=== PATIENT | male | born 1965 | race Caucasian/White ===

== ENCOUNTER → 2018-03-05 15:15 | Outpatient (CLI) | payer MEDICAID, SELFPAY ==
[2018-03-05 16:14] LABS: Absolute Lymphocyte Count 1.38 X10^3/ul (0.83-4.51); Absolute Neutrophil Count 6.6 X10^3/uL (2.0-7.7); Basophil# 0.04 X10^3/uL; Basophil% 0.4 % (0-1); Eosinophil# 0.24 X10^3/uL; Eosinophils% 2.6 % (0-5); Hematocrit 20.6 % (40-54); Lymphocyte # 1.38 X10^3/ul (4.0); Lymphocyte % 15.2 % (19-41); Mean Corp Hgb Conc 27.2 g/gl (32-36); Mean Corpuscular Hgb 20.8 pg (27.0-32.0); Mean Corpuscular Volume 76.6 fL (80-94); Mean Platelet Vol. 8.9 fl (6.2-12.0); Monocyte# 0.82 X10^3/uL; Neutrophil # 6.59 X10^3/uL (2.7-7.7); Neutrophil % 72.5 % (47-70); Platelet Count 227 K/mm3 (150-450); RBC Distribution Width CV 19.6 % (11.6-14.6); RBC Distribution Width SD 54.4 fl (35.1-43.9); Red Blood Count 2.69 M/mm3 (4.6-6.2); White Blood Count 9.1 K/mm3 (4.4-11.0)
[2018-03-05 16:23] LABS: Differential Indicated SCAN CRITERIA MET; POSITIVE COUNT YES; POSITIVE DIFFERENTIAL NO; POSITIVE MORPHOLOGY NO
[2018-03-05 16:42] LABS: Anion Gap 13 (5-15); BUN 14 mg/dL (7-18); BUN/Creat Ratio 14.9 RATIO (10-20); Chloride 94 mmol/L (98-107); Creatinine, Serum 0.94 mg/dL (0.70-1.30); EST Glomerular Filtration Rate 90 mL/min (>60); Est Glom Filt Rate - Afr Amer 109 mL/min (>60); Glucose 112 mg/dL (74-106); Potassium 4.3 mmol/L (3.5-5.1); Sodium Level 127 mmol/L (136-145)
[2018-03-05 17:05] LABS: Hemoglobin 5.6 g/dl (13.0-16.5)
[2018-03-05 17:06] LABS: Anisocytosis 1+; Hypochromasia 1+; Microcytosis 1+; Platelet Estimate ADEQUATE (ADEQ)
== END ==
PROVIDERS: Visit Provider Nurse Practitioner Family
DX: I25.810 Atherosclerosis of coronary artery bypass graft(s) without angina pectoris (principal); R06.09 Other forms of dyspnea
CPT/HCPCS: 36415; 80048; 83880; 85025

== ENCOUNTER → 2019-03-17 | Outpatient (CLI) | payer MEDICAID, SELFPAY ==
[2018-11-26 14:20] VITALS: BMI 29.0
[2019-03-17 17:21] LABS: Absolute Lymphocyte Count 2.39 X10^3/ul (0.83-4.51); Absolute Neutrophil Count 7.8 X10^3/uL (2.0-7.7); Basophil# 0.02 X10^3/uL; Basophil% 0.2 % (0-1); Eosinophil# 0.28 X10^3/uL; Eosinophils% 2.3 % (0-5); Hematocrit 42.4 % (40-54); Hemoglobin 13.8 g/dl (13.0-16.5); Lymphocyte # 2.39 X10^3/ul (4.0); Lymphocyte % 19.9 % (19-41); Mean Corp Hgb Conc 32.5 g/gl (32-36); Mean Corpuscular Volume 92.2 fL (80-94); Mean Platelet Vol. 10.9 fl (6.2-12.0); Monocyte# 1.46 X10^3/uL; Monocyte% 12.2 % (0-10); Neutrophil # 7.83 X10^3/uL (2.7-7.7); Neutrophil % 65.2 % (47-70); Platelet Count 253 K/mm3 (150-450); RBC Distribution Width CV 16.1 % (11.6-14.6); RBC Distribution Width SD 52.9 fl (35.1-43.9)
[2019-03-17 17:24] LABS: POSITIVE COUNT NO; POSITIVE DIFFERENTIAL NO; POSITIVE MORPHOLOGY NO
== END | disposition home or self-care (01) ==
LOC: LAB 15:52
PROVIDERS: Referring Provider Nurse Practitioner Family; Visit Provider Nurse Practitioner Family
DX: I25.810 Atherosclerosis of coronary artery bypass graft(s) without angina pectoris (principal); I48.0 Paroxysmal atrial fibrillation; R79.89 Other specified abnormal findings of blood chemistry
CPT/HCPCS: 36415; 85025

== ENCOUNTER 2019-03-28 11:57 | Inpatient (IN) | payer MEDICAID, SELFPAY ==
[2018-11-26 14:20] VITALS: BMI 29.0
[2019-03-28] VITALS (12 sets, daily range): BP systolic 85–100; BP diastolic 46–63; PULSE 65–89; RESP 14–21; TEMP 36.2–37.2; O2SAT 96–99; BMI 25.1; BMI 24.3
--- NOTE | 2019-03-28 12:02 | NURSING ---
NO OLD EKGS
[2019-03-28 12:10] LABS: Bedside Glucose 198 mg/dL (70-110)
--- NOTE | 2019-03-28 12:34 | CT_ITS ---
STUDY: CT BRAIN WITHOUT CONTRAST REASON FOR EXAM: Male, 53 years old. Right-sided weakness. RADIATION DOSAGE (If Supplied By Facility): CTDIvol = ( 44.99 ) mGy, DLP = ( 829.85 ) mGycm TECHNIQUE: Transaxial CT imaging of the brain was performed without administration of intravenous contrast material. Individualized dose optimization techniques were used for this CT. COMPARISON: No relevant priors. FINDINGS: Normal soft tissue structures. Normal calvarium. Normal size ventricles and extra-axial spaces for the patient's age. Normal white matter tracts of the cerebral hemispheres. Normal basal ganglia and thalami. Normal brainstem. Normal cerebellum. There is no intracranial hemorrhage. There are no findings of an acute ischemic infarction. Atherosclerotic calcification of the cavernous portions of the internal carotid arteries bilaterally. Mild degree of mucosal thickening of the ethmoid sinuses. CT/Brain/Head without Contrast IMPRESSION: Normal unenhanced CT scan of the brain. Electronically Signed: Harry Voss, at 13:23 EDT , Service support ,
--- NOTE | 2019-03-28 12:34 | EKG12_ITS ---
Test Reason : NEURO Blood Pressure : / mmHG Vent. Rate : 068 BPM Atrial Rate : 267 BPM P-R Int : 000 ms QRS Dur : 088 ms QT Int : 490 ms P-R-T Axes : 091 062 111 degrees QTc Int : 521 ms Atrial flutter with variable A-V block Inferior infarct , age undetermined Prolonged QT T-Wave Abnormality Consider Myocardial Ischemia (Anterior-Lateral) Abnormal ECG Confirmed by COLT LOMELI, TAMMY ([id number]), magazine editor CANDICE ZAZUETA ([id number]) on 03/31/2019 9:04:33 AM Referred By: EARLINE Confirmed By:TAMMY GREGORY MD
[2019-03-28] MEDS: 0.9% Normal Saline 1,000 ML 100 ML IV (12:42)
[2019-03-28 12:49] LABS: Absolute Lymphocyte Count 2.38 X10^3/ul (0.83-4.51); Absolute Neutrophil Count 5.6 X10^3/uL (2.0-7.7); Basophil# 0.04 X10^3/uL; Basophil% 0.4 % (0-1); Eosinophil# 0.28 X10^3/uL; Eosinophils% 3.1 % (0-5); Hemoglobin 13.8 g/dl (13.0-16.5); Lymphocyte # 2.38 X10^3/ul (4.0); Lymphocyte % 26.5 % (19-41); Mean Corp Hgb Conc 32.9 g/gl (32-36); Mean Corpuscular Hgb 30.7 pg (27.0-32.0); Mean Corpuscular Volume 93.5 fL (80-94); Mean Platelet Vol. 9.7 fl (6.2-12.0); Monocyte# 0.68 X10^3/uL; Monocyte% 7.6 % (0-10); Neutrophil # 5.58 X10^3/uL (2.7-7.7); Neutrophil % 62.2 % (47-70); Platelet Count 360 K/mm3 (150-450); RBC Distribution Width SD 55.9 fl (35.1-43.9); Red Blood Count 4.49 M/mm3 (4.6-6.2)
[2019-03-28 12:50] LABS: POSITIVE COUNT NO; POSITIVE DIFFERENTIAL NO; POSITIVE MORPHOLOGY NO
[2019-03-28 12:51] LABS: International Normalized Ratio 1.1; Prothrombin Time (Protime)PT. 14.4 SECONDS (11.7-14.9)
[2019-03-28 12:52] LABS: Partial Thromboplast Time 34.3 Seconds (24.1-36.2)
--- NOTE | 2019-03-28 12:55 | PCA ---
NO OLD EKG
[2019-03-28 13:01] LABS: Anion Gap 11 (5-15); BUN 22 mg/dL (7-18); BUN/Creat Ratio 11.8 RATIO (10-20); Calcium,Total 10.1 mg/dL (8.5-10.1); Chloride 95 mmol/L (98-107); Creatinine, Serum 1.86 mg/dL (0.70-1.30); EST Glomerular Filtration Rate 41 mL/min (>60); Est Glom Filt Rate - Afr Amer 49 mL/min (>60); Estimated Creatinine Clearance 47.42 ml/min; Glucose 176 mg/dL (74-106); Potassium 3.2 mmol/L (3.5-5.1); Sodium Level 137 mmol/L (136-145)
--- NOTE | 2019-03-28 13:02 | RAD_ITS ---
STUDY: X-RAY CHEST REASON FOR EXAM: Male, 53 years old. Palpitations. TECHNIQUE: Single AP portable view of the chest. COMPARISON: Comparison is made with prior study dated December 04, 2015. FINDINGS: EKG electrodes are seen Mild degree of vascular congestion. Increased markings at the lung bases slightly worse on the left side suggestive of bibasilar atelectasis. Follow-up is recommended. There is no demonstrated pleural abnormality. Sternal cerclage wires and vascular clips are present from a prior sternotomy and coronary artery bypass graft procedure (CABG). A loop recorder device is seen in the medial left lower hemithorax. Normal mediastinum and ranjit. Normal visualized pulmonary arteries. Normal visualized aortic arch and descending thoracic aorta. Normal visualized thoracic spine. Normal visualized ribs, clavicles, and shoulders. There is no demonstrated abnormality of the visualized soft tissue structures of the upper abdomen. RAD/Chest 1 View IMPRESSION: Basilar congestion with increased markings at the lung bases worse on the left side suggestive of superimposed bibasilar atelectasis. Electronically Signed: Harry Voss, at 13:46 EDT , Service support ,
--- NOTE | 2019-03-28 14:00 | ED.RN ---
verbal order received to discontinue NIHs.
--- NOTE | 2019-03-28 14:13 | ED.VISSUMM ---
- ER Visit Summary Date of Service: 03/28/19 Chief Complaint: [Speech difficulty and right arm weakness presents the emergency department with] History of Present Illness: The patient is a 53 M [speech difficulty that was noted this morning around 8 AM by patient's ex-. Patient also states that he has been having issues with his right hand for a couple of days where he cannot use it properly and has been numb. He denies any headache or falls or head injuries. He denies any recent illness. Patient has history of diabetes, hypertension, coronary artery disease, a flutter, neuropathy. Patient states that he used to be on Eliquis but was taken off a few years ago due to rectal bleeding issues.] Physical Examination: [HEENT-PERRLA, EOMI. Cranial nerves II through XII grossly intact. TMs clear. Mucous membranes moist. No adenopathy. Cardiovascular-regular rate and rhythm without murmur or ectopy Lungs-clear to auscultation, chest wall stable without crepitus or subcu emphysema Abdomen-normoactive bowel sounds, soft, nontender, no rebound or rigidity, no peritoneal signs. Neuro exam-patient has weakness to the right hand compared to the left side. He has decreased sensation to the right hand compared to the left side. NIH stroke scale was a 2 because of this. There is no facial droop at this time or difficulty with speech. No visual changes. Extremities-intact ?4, normal range of motion, normal pulses, atraumatic] Test Results: [EKG obtained showed atrial flutter with a rate of 60 bpm with some nonspecific ST changes. CBC with additional cannot 9.0, hemoglobin 14, hematocrit 42, placed 360. Chemistries unremarkable. BUN is 22 creatinine 1.86. Troponin is less than 0.015. CT scan of the brain without contrast was unremarkable. Chest x-ray showed bibasilar congestion.] Emergency Department Course and Treatment: [Patient will be admitted for stroke work-up. Patient is not a thrombolytic candidate given symptom of onset greater than 3 hours and actually improving symptoms.] Treatment Plan: [Admit for further stroke evaluation.] Disposition: [Admit] Impression: [CVA] This note was generated with [employer] dictation software. It may contain incorrect words, spelling, and punctuation that were not noted in review of the chart prior to signing ED Disposition - Plan for ED Patient: Referrals: Care Physician,No Primary [Primary Care Provider] -
--- NOTE | 2019-03-28 14:25 | NURSING ---
120 ASHELFAH STROKELIKE SYMPTOMS, ACUTE KIDNEY INJURY, HYPOKALEMIA
--- NOTE | 2019-03-28 14:38 | PCM.HP.STD ---
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 [place] (3) Paroxysmal atrial fibrillation Status: Chronic (4) Diabetes mellitus Status: Chronic (5) Hypertension Status: Chronic Qualifiers: (6) Hyperlipidemia Status: Chronic Qualifiers: (7) Nicotine abuse Status: Chronic History of Present Illness Date of Admission: 03/28/19 Chief Complaint: Change in speech, right arm weakness. The patient is a 53 year old M with past medical history as mentioned above presented to the emergency department because of difficulty in speech as well as right upper extremity weakness. The patient is a very poor informant and he does not remember most of the symptoms that he came for. Reportedly and according to the patient's ex-, his ex- noted that he had speech difficulty this morning around 8 AM and she brought him to the emergency department. The patient mentioned that he has been having issues with his right hand over the last couple of days which has been numb and weak. He denied chest pain or shortness of breath. His right eye is blind and he has been having issues with blurred vision in the past. He has history of paroxysmal atrial fibrillation/flutter, has been on sotalol for rate control and he was taken off anticoagulant around 2 years ago because of GI bleed. He has history of CAD status post CABG and stents and he has been on beta-blockers, WENDY inhibitors and nitrates. He has a history of type 2 diabetes mellitus, has been on metformin and it is not clear if the patient takes care of his diabetes or not. The patient has a history of recurrent syncope and presyncope, had patient activated loop recorder that was placed on November, and that was interrogated 1 week later and showed no evidence of patient activated symptoms, revealed one episode of A. fib and there was no evidence of other cardiac arrhythmias. He had had a remote interrogation of the loop recorder done on April, and again revealed no patient activity symptoms and no cardiac arrhythmias. In the emergency department, his blood pressure was borderline which seem to be chronic, other vital signs were stable. Into the ER physician, his NIH stroke scale was 2. His routine blood work was remarkable for potassium of 3.2, BUN of 22 and creatinine of 1.86, otherwise normal. EKG revealed atrial flutter, prolonged QTC, no evidence of acute ischemic changes. Troponin was negative. Chest x-ray showed probable right lower lobe atelectasis, no acute findings. CT scan brain showed no acute infarction or hemorrhage. He is being admitted for slurred speech/right upper extremity paresthesia and weakness, probable TIA versus acute stroke and acute kidney injury with hypokalemia. 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 [place] Paroxysmal atrial fibrillation (Chronic) Diabetes mellitus (Chronic) Hypertension (Chronic) Hyperlipidemia (Chronic) Nicotine abuse (Chronic) Medical History: Medical History (Last Updated 03/28/19 @ 14:37 by Fadia Starkey MD) Typical atrial flutter (Chronic) I48.3 Other specified cardiac device in situ (Chronic) Z95.818 Paroxysmal atrial fibrillation (Chronic) I48.0 Diabetes mellitus (Chronic) E11.9 Hypertension (Chronic) I10 Hyperlipidemia (Chronic) E78.5 Allergies seasonal Allergy (Uncoded 03/28/19 12:03) SOB Home Medications: Ambulatory Orders Medication Instructions Recorded Gabapentin [Neurontin] 1,200 mg PO TIDCM 12/07/15 Loratadine [Claritin] 10 mg PO DAILY 12/07/15 Metformin HCl [Glucophage] 1,000 mg PO BIDCM 12/07/15 Omeprazole [Prilosec] 20 mg PO DAILY 12/07/15 duloxetine 60 mg capsule,delayed 60 mg PO DAILY 01/13/18 release lisinopril 10 mg tablet 10 mg PO DAILY 09/27/18 ferrous sulfate 325 mg (65 mg 325 mg PO DAILY tab 11/26/18 iron) tablet Atorvastatin Calcium [Lipitor] 20 mg PO QHS 03/28/19 Cholecalciferol (Vitamin D3) 5,000 unit PO DAILY 03/28/19 [Vitamin D3] Ertugliflozin Pidolate [Steglatro] 5 mg PO DAILY 03/28/19 Ezetimibe [Zetia] 10 mg PO DAILY 03/28/19 Furosemide [Lasix] 40 mg PO BID 03/28/19 Isosorbide Mononitrate [Imdur] 120 mg PO DAILY 03/28/19 Pregabalin [Lyrica] 75 mg PO TID 03/28/19 Sotalol HCl [Sotalol] 120 mg PO DAILY 03/28/19 Vitamin B Complex [B Complex] 1 tab PO DAILY 03/28/19 traZODone [Desyrel] 50 mg PO QHS 03/28/19 Surgical History: Surgical History (Last Updated 03/05/18 @ 14:36 by Akil Ramos) Presence of coronary angioplasty implant and graft (Chronic) Z95.04 March 2005 IVUS of LAD, May 2005 PTCA & ALBAN X 3 to 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 [place] History of open reduction and internal fixation (ORIF) procedure Z98.890 Left lower extremity History of surgery on arm Z98.890 Right arm d/t trauma Hx of CABG Z95.1 CABG X 3 vessels, CARTER to LAD, SVG to OM1, SVG to OM3 11/03 Surgical History: coronary bypass surgery Psychiatric History: Depression Lives: With Family Smoking Status: Current every day smoker Tobacco Use: Cigarettes, Pipe Alcohol: None Drugs: None - *Family History Maternal Family History: Family History (Last Updated 03/05/18 @ 14:37 by Akil Ramos) Father CAD (coronary artery disease) COPD (chronic obstructive pulmonary disease) CHF (congestive heart failure) Mother COPD (chronic obstructive pulmonary disease) History Items: No pertinent history Paternal Family History: Family History (Last Updated 03/05/18 @ 14:37 by Akil Ramos) Father CAD (coronary artery disease) COPD (chronic obstructive pulmonary disease) CHF (congestive heart failure) Mother COPD (chronic obstructive pulmonary disease) History Items: No pertinent history Review of Systems Constitutional: Reports: Weakness. Denies: Anorexia, Chills, Fever Eyes: Reports: Blurred vision. Denies: Double vision, Drainage, Redness HEENT: Denies: Difficulty Hearing, Ear Pain, Eye Pain, Nasal Congestion, Sore Throat Cardiovascular: Reports: Light Headedness. Denies: Chest Pain, Chest Pressure, Heaviness, Palpitations, Syncope Respiratory: Denies: Cough, Pleuritic Pain, Shortness of Breath, Sputum production, Wheezing Gastrointestinal: Denies: Abdominal Pain, Constipation, Diarrhea, Nausea, Vomiting Genitourinary: Denies: Dysuria, Frequency, Hematuria Musculoskeletal: Reports: Back Pain. Denies: Arm Pain, Foot Pain Skin: Denies: Dryness, Rash Neurological: Reports: Change in Speech, Slurred speech, Focal weakness, Numbness, Tingling. Denies: Balance problems, Confusion Psychiatric: Reports: Depression. Denies: Anxiety Endocrine: Denies: Change in Body Habitus, Polydipsia VTE Information - Inpt Only VTE Present on Admission: No VTE Mechan Device Prophylaxis: None VTE Pharm Prophylaxis ordered?: Yes - Physical Exam General: Alert, Oriented x3, Cooperative, No apparent distress HEENT: Atraumatic, PERRLA, EOMI, Normocephalic Oral: Moist Mucosa, No Gingival or Mucosal Lesions/ Ulcerations Neck: Supple, No JVD, Negative Carotid Bruits, Trachea Midline, Thyroid Normal Size and Texture Lungs: Clear to auscultation, No rhonchi, No wheeze, No rales, Diminished Cardiovascular: Normal S1, Normal S2, No murmurs, PMI Normal, Irregular Rate Abdomen: Bowel Sounds Present, Soft, Non Tender, Non-Distended, No Hepato-splenomegaly Extremities: No clubbing, No cyanosis, No edema Skin: No rashes, No breakdown Lymphatic: No Cervical, Supraclavicular, or Inguinal Adenopathy Neurological: Cranial nerves II-XII grossly intact, - - Minimal weakness on the right upper extremity, power is 4 x 5. All other limbs power is 5 x 5. Psych/Mental Status: Normal Affect, Appropriate, Alert and oriented to time, place, person, mood and affect Vital Signs Temp Pulse Resp BP Pulse Ox 97.8 F 65 21 H 91/54 L 99 03/28/19 11:58 03/28/19 13:34 03/28/19 13:34 03/28/19 13:34 03/28/19 13:34 Oxygen Flow Rate (L/min) 4 Oxygen Delivery Method Nasal Cannula Weight: 175 lb 0.752 oz Body Mass Index (BMI) 25.1 Finger Stick Blood Glucose 198 Laboratory Tests Past 24 Hrs 03/28/19 03/28/19 03/28/19 12:05 12:05 12:05 WBC 9.0 RBC 4.49 L Hgb 13.8 Hct 42.0 MCV 93.5 MCH 30.7 MCHC 32.9 RDW 17.0 H RDW Differential 55.9 H Plt Count 360 MPV 9.7 Immature Gran % (Auto) 0.200 Neut % (Auto) 62.2 Lymph % (Auto) 26.5 Guthrie % (Auto) 7.6 Eos % (Auto) 3.1 Baso % (Auto) 0.4 Absolute Neuts (auto) 5.6 Absolute Lymphs (auto) 2.38 Total Counted Not Reportable PT 14.4 INR 1.1 APTT 34.3 Sodium 137 Potassium 3.2 L Chloride 95 L Carbon Dioxide 31.0 Anion Gap 11 BUN 22 H Creatinine 1.86 H Estim Creat Clear Calc 47.42 Est GFR (MDRD) Af Amer 49 L Est GFR (MDRD) Non-Af 41 L BUN/Creatinine Ratio 11.8 Glucose 176 H Calcium 10.1 Troponin I < 0.015 POC Glucose 03/28/19 12:03 POC Glucose 198 H Clinical Impression(s) from Imaging Studies Brain CT 03/28/19 12:34 IMPRESSION: Normal unenhanced CT scan of the brain. Electronically Signed: Harry Voss, at 13:23 EDT , Service support , Chest X-Ray 03/28/19 13:02 IMPRESSION: Basilar congestion with increased markings at the lung bases worse on the left side suggestive of superimposed bibasilar atelectasis. Electronically Signed: Harry Voss, at 13:46 EDT , Service support , Assessment/Plan This is a 53 years old male patient presented to the emergency room because of slurred speech, right hand numbness and weakness and he is being admitted for acute stroke versus TIA and also found to have acute kidney injury and hypokalemia. #1 slurred speech/right upper extremity paresthesia and weakness/probable TIA versus acute stroke: NIH stroke scale was 2 with a right, onset of symptoms is unclear, patient is not a candidate for TPA. CT scan brain showed no acute findings. At this time, speech change has improved, still have a right upper hand and arm weakness. EKG revealed atrial flutter, rate is controlled, no acute ischemic changes. Blood pressure is borderline which seem to be chronic. Plan: Admit to PCU, cardiac monitoring, complete bedrest, NIH stroke scale, MRI brain, 2D echocardiogram, bilateral carotid Doppler, neurology consult, start baby aspirin and full dose statins, IV fluids, Tylenol as needed, IV antiemetics, fasting lipid profile, PT OT evaluation and treatment, speech therapy evaluation and treatment. #2 acute kidney injury/hypokalemia: It is likely because of side effects of Lasix in addition to metformin as well as poor oral intake. Baseline kidney function is normal. Plan: IV fluids with potassium replacement, hold Lasix and metformin, input output chart, repeat BMP tomorrow morning. #3 CAD status post CABG and stents: EKG reviewed, no acute ischemic changes, troponin is negative. Plan to start aspirin, continue statins, continue nitrates and Hodges, hold lisinopril. #4 type 2 diabetes mellitus: ADA diet, Accu-Cheks, insulin sliding scale, hold metformin, hemoglobin A1c. #5 history of recurrent syncopes/presyncope/dizziness: Status post insertion of patient activated loop recorder, no evidence of significant cardiac arrhythmias identified on interrogation x2. EKG read as above. At this time, blood pressure is borderline, heart rate stable. #6 hypertension: Blood pressure is borderline, plan to hold lisinopril, continue nitrates and sotalol. #7 paroxysmal atrial fibrillation/flutter: Rate is controlled, continue sotalol for rhythm control. Patient was on anticoagulation around 2 days ago, was discontinued because of GI bleed and anemia. The patient found to have acute stroke, he may need to go back on anti-Coblation. #8 history of GI bleed: Patient reported occasional small amount of bleeding, hemoglobin and hematocrit are stable. Pro time, INR and platelet count are normal. Plan to repeat CBC tomorrow morning. #9 hyperlipidemia: Continue statins, fasting lipid profile. #10 DVT prophylaxis: Subcu heparin. This note was generated with [employer] dictation software. It may contain incorrect words, spelling, and punctuation that were not noted in checking the note before signing. Code Visit Inpatient E&M: 65365 Init Hosp L3
--- NOTE | 2019-03-28 15:23 | CDU_ITS ---
Reason For Study: TIA Rt. Velocities/BP Lt. Velocities/BP Prox CCA 124.7/22.5 cm/sec. Prox CCA 113.3/7.7 cm/sec. Mid CCA 88.2/20.6 cm/sec. Mid CCA 86.3/6.5 cm/sec. Dist CCA 81.4/16.3 cm/sec. Dist CCA 58.1/6.5 cm/sec. Prox ICA 94.9/20 cm/sec. Prox ICA 386.9/102.5 cm/sec. Mid ICA 106.5/26.1 cm/sec. Mid ICA 112/24.3 cm/sec. Dist ICA 67.4/25.6 cm/sec. Dist ICA 57/9.7 cm/sec. Rt. ICA/CCA = 1.2. Lt. ICA/CCA = 4.5. Prox ECA 288.6 cm/sec. Prox ECA 202.8 cm/sec. Rt. Vert. 59.7/14.6 cm/sec. Lt. Vert. 55.1/6.9 cm/sec. Right Extracranial There is heterogeneous, smooth atherosclerotic plaque noted in the right common carotid artery. There is heterogeneous, irregular atherosclerotic plaque noted in the right internal carotid artery. There is heterogeneous, irregular atherosclerotic plaque noted in the right external carotid artery. Antegrade flow is noted in the right vertebral artery. Left Extracranial There is heterogeneous, smooth atherosclerotic plaque noted in the left common carotid artery. There is heterogeneous, irregular atherosclerotic plaque noted in the left internal carotid artery. There is heterogeneous, irregular atherosclerotic plaque noted in the left external carotid artery. Antegrade flow is noted in the left vertebral artery. Procedure Carotid Duplex 46715. Exam performed portable in patient room. Interpretation Summary Irregular calcific plague at the distal right common carotid and proximal internal and external carotids. <50% stenosis right internal carotid. Possible shallow ulcer. >50% stenosis right external carotid Irregular calcific plague distal left common carotid, and proximal internal and external carotids. >70% stenosis left internal carotid >50% stenosis left external carotid Patent and antegrade vertebrals bilaterally Ordering Physician: Fadia Starkey Performed By: Lea Goldstein RVT
--- NOTE | 2019-03-28 15:23 | ECHOCS_ITS ---
Reason For Study: TIA/CVA Procedure This was a 2D Doppler, Color Flow transthoracic echocardiogram. The study was technically difficult. Contrast injection was performed. Exam performed portable in patient room. Left Ventricle Normal LV size. Left ventricular systolic function is normal. The estimated ejection fraction is 55 %. There is evidence of diastolic dysfunction. No regional wall motion abnormalities noted. Right Ventricle Normal RV size. Normal systolic function. Atria The left atrium is moderately enlarged. The right atrium is mildly enlarged. No doppler evidence for ASD. Bubble contrast study negative for right to left interatrial shunt. Mitral Valve There is mild mitral annular calcification. Mild diffuse mitral valve thickening. Mild (1+) mitral valve insufficiency. Tricuspid Valve Normal tricuspid valve. Mild to moderate (1-2+) tricuspid valve insufficiency. Right ventricular systolic pressure estimated to be 47 mmHg. Aortic Valve Trisinus/trileaflet aortic valve. Normal aortic valve. Pulmonic Valve The pulmonic valve is not well visualized. Trivial pulmonic valve insufficiency. Great Vessels The aortic root is not well visualized. Pericardium/Pleural No pericardial effusion. Medication Diluted definity 1ml given slow IV push to enhance endocardial definition. Performed a rapid injection of agitated mix of 9 cc saline and 1cc air to assess for atrial septal defect. MMode/2D Measurements & Calculations LVIDd: 4.4 cm IVSd: 1.7 cm LA dimension: 4.5 cm LVIDs: 3.7 cm LVPWd: 1.1 cm FS: 16.4 % LAV(MOD-bp): 94.2 ml LVAd ap4: 32.8 cm2 SV(MOD-sp4): 53.9 ml LAV(MOD-bp) Indexed: 48.5 ml/m2 EDV(MOD-sp4): 114.8 ml LAV(MOD-sp2): 63.8 ml EDV(sp4-el): 119.6 ml LAV(MOD-sp4): 111.9 ml LVAs ap4: 22.4 cm2 ESV(MOD-sp4): 60.8 ml ESV(sp4-el): 61.5 ml EF(MOD-sp4): 47.0 % EF(sp4-el): 48.6 % SV(sp4-el): 58.1 ml LA A4 area: 29.9 cm2 RA A4 area: 22.1 cm2 Time Measurements MV dec time: 0.13 sec Doppler Measurements & Calculations MV E max mat: 103.9 cm/sec Lat Peak E' Mat: 7.6 cm/sec Med Peak E' Mat: 8.7 cm/sec MV A max mat: 31.8 cm/sec E/E' lat: 13.6 E/E' med: 11.9 MV E/A: 3.3 MV V2 max: 113.0 cm/sec MV P1/2t max mat: 113.9 cm/sec Ao V2 max: 85.4 cm/sec MV max P.1 mmHg MV P1/2t: 71.1 msec Ao max P.9 mmHg MV V2 mean: 57.2 cm/sec MV mean P.7 mmHg MV dec slope: 468.8 cm/sec2 MV V2 VTI: 27.0 cm MVA(P1/2t): 3.1 cm2 LV V1 max: 76.3 cm/sec MR max mat: 523.9 cm/sec PA V2 max: 86.3 cm/sec LV V1 max P.3 mmHg MR max P.8 mmHg MR mean mat: 407.5 cm/sec MR mean P.9 mmHg MR VTI: 192.4 cm TR max mat: 312.5 cm/sec TR max P.1 mmHg Interpretation Summary The study was technically difficult. Contrast injection was performed. Left ventricular systolic function is normal. The estimated ejection fraction is 55 %. The left atrium is moderately enlarged. The right atrium is mildly enlarged. There is mild mitral annular calcification. Mild diffuse mitral valve thickening. Mild (1+) mitral valve insufficiency. Mild to moderate (1-2+) tricuspid valve insufficiency. Trivial pulmonic valve insufficiency. Right ventricular systolic pressure estimated to be 47 mmHg. There is evidence of diastolic dysfunction. Ordering Physician: Fadia Starkey Performed By: Arvind Montez RCS
--- NOTE | 2019-03-28 15:23 | MRI_ITS ---
We are attempting to reach Fadia Starkey MD to discuss findings. An addendum with communication details will be sent when the communication is complete. HISTORY: R sided weakness EXAM/TECHNIQUE: MR Brain W/O Contrast: Multiplanar reformats provided. 1.5 [place]. COMPARISON: CT brain without contrast earlier same date.. FINDINGS: # of images incl. paperwork: 285 Cluster of small acute-subacute infarcts most prominent in the posterior lateral cortex of the left precentral gyrus, with smaller punctate infarcts in the more central white matter, and within the more posterior left superior parietal lobule. No hemorrhage or mass. No other infarct. No hydrocephalus. Major flow voids are preserved. Underlying mild chronic microangiopathic change in the white matter. No acute osseous abnormality. Paranasal sinuses, middle ears and mastoid air cells patent. MRI/Brain without Contrast IMPRESSION: Cluster of small acute-subacute infarcts most prominent in the posterior lateral cortex of the left precentral gyrus (left MCA territory). No hemorrhage. at 2000 Reported and signed by: Rick Best MD Electronically Signed: Rick Best, at 19:59 EDT Tel , Service support ,
[2019-03-28 15:54] LABS: Thyroid Stim Hormone (TSH) 0.63 uIU/mL (0.358-3.74)
[2019-03-28 16:02] LABS: Hemoglobin A1c 5.8 % (4.2-6.3)
[2019-03-28] MEDS: Gabapentin 600 MG Tablet 1200 MG PO (16:29)
[2019-03-28] MEDS: Aspirin 81 MG TAB.CHEW PO (16:29)
[2019-03-28 16:50] LABS: Bedside Glucose 113 mg/dL (70-110)
[2019-03-28] MEDS: Heparin Injection (Vial) 5,000 UNIT/ML VIAL 5000 UNIT SC (22:46)
[2019-03-28] MEDS: Acetaminophen 325 MG Tablet 650 MG PO (22:46)
[2019-03-28] MEDS: Pregabalin 75 MG Capsule PO (22:46)
[2019-03-28] MEDS: traZODone 50 MG Tablet PO (22:46)
[2019-03-28] MEDS: Atorvastatin Calcium 80 MG Tablet PO (22:46)
[2019-03-28 23:06] LABS: Bedside Glucose 100 mg/dL (70-110)
[2019-03-29] VITALS (8 sets, daily range): BP systolic 97–128; BP diastolic 59–81; PULSE 58–69; RESP 14–16; TEMP 36.4–36.7; O2SAT 93–100; BMI 24.3
[2019-03-29 06:31] LABS: Absolute Lymphocyte Count 2.03 X10^3/ul (0.83-4.51); Absolute Neutrophil Count 3.8 X10^3/uL (2.0-7.7); Basophil# 0.04 X10^3/uL; Basophil% 0.6 % (0-1); Eosinophils% 4.3 % (0-5); Hematocrit 39.6 % (40-54); Hemoglobin 12.7 g/dl (13.0-16.5); Lymphocyte # 2.03 X10^3/ul (4.0); Lymphocyte % 29.1 % (19-41); Mean Corp Hgb Conc 32.1 g/gl (32-36); Mean Corpuscular Hgb 30.5 pg (27.0-32.0); Mean Corpuscular Volume 95.2 fL (80-94); Mean Platelet Vol. 9.5 fl (6.2-12.0); Monocyte# 0.75 X10^3/uL; Monocyte% 10.8 % (0-10); Neutrophil # 3.84 X10^3/uL (2.7-7.7); Neutrophil % 55.1 % (47-70); Platelet Count 259 K/mm3 (150-450); RBC Distribution Width CV 16.8 % (11.6-14.6); RBC Distribution Width SD 57.8 fl (35.1-43.9); Red Blood Count 4.16 M/mm3 (4.6-6.2)
[2019-03-29 06:32] LABS: POSITIVE COUNT NO; POSITIVE DIFFERENTIAL NO; POSITIVE MORPHOLOGY NO
[2019-03-29 06:49] LABS: Anion Gap 4 (5-15); BUN 15 mg/dL (7-18); BUN/Creat Ratio 15.7 RATIO (10-20); Calcium,Total 8.8 mg/dL (8.5-10.1); Chloride 109 mmol/L (98-107); Cholesterol 101 mg/dL (200); Creatinine, Serum 0.96 mg/dL (0.70-1.30); EST Glomerular Filtration Rate 87 mL/min (>60); Est Glom Filt Rate - Afr Amer 106 mL/min (>60); Estimated Creatinine Clearance 91.88 ml/min; Glucose 119 mg/dL (74-106); High Density Lipoprotein 33 mg/dL; Potassium 3.5 mmol/L (3.5-5.1); Sodium Level 144 mmol/L (136-145); Triglycerides 123 mg/dL; Very Low Density Lipoprotein 25 mg/dL (5-40)
[2019-03-29] MEDS: Heparin Injection (Vial) 5,000 UNIT/ML VIAL 5000 UNIT SC ×2 (06:56→15:14)
[2019-03-29] MEDS: Acetaminophen 325 MG Tablet 650 MG PO (06:56)
[2019-03-29 07:06] LABS: Bedside Glucose 131 mg/dL (70-110)
[2019-03-29] MEDS: Gabapentin 600 MG Tablet 1200 MG PO ×3 (08:11→17:27)
[2019-03-29] MEDS: Ferrous Sulfate 325 MG Tablet PO (08:12)
[2019-03-29] MEDS: Aspirin 81 MG TAB.CHEW PO (08:12)
[2019-03-29] MEDS: Loratadine 10 MG Tablet PO (09:24)
[2019-03-29] MEDS: Sotalol Hydrochloride 80 MG Tablet 120 MG PO (09:24)
[2019-03-29] MEDS: Ezetimibe 10 MG Tablet PO (09:25)
[2019-03-29] MEDS: Pantoprazole Sodium 20 MG Tablet PO (09:25)
[2019-03-29] MEDS: DULoxetine Hcl 60 MG Capsule PO (09:25)
--- NOTE | 2019-03-29 09:32 | PCM.CONS.GEN ---
Reason for Consult History of Present Illness: The patient is a 53 year old M per admit note:The patient is a 53 year old M with past medical history as mentioned above presented to the emergency department because of difficulty in speech as well as right upper extremity weakness. The patient is a very poor informant and he does not remember most of the symptoms that he came for. Reportedly and according to the patient's ex-, his ex- noted that he had speech difficulty this morning around 8 AM and she brought him to the emergency department. The patient mentioned that he has been having issues with his right hand over the last couple of days which has been numb and weak. He denied chest pain or shortness of breath. His right eye is blind and he has been having issues with blurred vision in the past. He has history of paroxysmal atrial fibrillation/flutter, has been on sotalol for rate control and he was taken off anticoagulant around 2 years ago because of GI bleed. He has history of CAD status post CABG and stents and he has been on beta-blockers, WENDY inhibitors and nitrates. He has a history of type 2 diabetes mellitus, has been on metformin and it is not clear if the patient takes care of his diabetes or not. The patient has a history of recurrent syncope and presyncope, had patient activated loop recorder that was placed on November, and that was interrogated 1 week later and showed no evidence of patient activated symptoms, revealed one episode of A. fib and there was no evidence of other cardiac arrhythmias. He had had a remote interrogation of the loop recorder done on April, and again revealed no patient activity symptoms and no cardiac arrhythmias. In the emergency department, his blood pressure was borderline which seem to be chronic, other vital signs were stable. Into the ER physician, his NIH stroke scale was 2. His routine blood work was remarkable for potassium of 3.2, BUN of 22 and creatinine of 1.86, otherwise normal. EKG revealed atrial flutter, prolonged QTC, no evidence of acute ischemic changes. Troponin was negative. Chest x-ray showed probable right lower lobe atelectasis, no acute findings. CT scan brain showed no acute infarction or hemorrhage. He is being admitted for slurred speech/right upper extremity paresthesia and weakness, probable TIA versus acute stroke and acute kidney injury with hypokalemia. 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 [place] Paroxysmal atrial fibrillation (Chronic) Diabetes mellitus (Chronic) Hypertension (Chronic) Hyperlipidemia (Chronic) Nicotine abuse (Chronic) Medical History: Medical History (Last Updated 03/28/19 @ 14:37 by Fadia Starkey MD) Typical atrial flutter (Chronic) I48.3 Other specified cardiac device in situ (Chronic) Z95.818 Paroxysmal atrial fibrillation (Chronic) I48.0 Diabetes mellitus (Chronic) E11.9 Hypertension (Chronic) I10 Hyperlipidemia (Chronic) E78.5 Allergies seasonal Allergy (Uncoded 03/28/19 12:03) SOB Home Medications: Ambulatory Orders Medication Instructions Recorded Gabapentin [Neurontin] 1,200 mg PO TIDCM 12/07/15 Loratadine [Claritin] 10 mg PO DAILY 12/07/15 Metformin HCl [Glucophage] 1,000 mg PO BIDCM 12/07/15 Omeprazole [Prilosec] 20 mg PO DAILY 12/07/15 duloxetine 60 mg capsule,delayed 60 mg PO DAILY 01/13/18 release lisinopril 10 mg tablet 10 mg PO DAILY 09/27/18 ferrous sulfate 325 mg (65 mg 325 mg PO DAILY tab 11/26/18 iron) tablet Atorvastatin Calcium [Lipitor] 20 mg PO QHS 03/28/19 Cholecalciferol (Vitamin D3) 5,000 unit PO DAILY 03/28/19 [Vitamin D3] Ertugliflozin Pidolate [Steglatro] 5 mg PO DAILY 03/28/19 Ezetimibe [Zetia] 10 mg PO DAILY 03/28/19 Furosemide [Lasix] 40 mg PO BID 03/28/19 Isosorbide Mononitrate [Imdur] 120 mg PO DAILY 03/28/19 Pregabalin [Lyrica] 75 mg PO TID 03/28/19 Sotalol HCl [Sotalol] 120 mg PO DAILY 03/28/19 Vitamin B Complex [B Complex] 1 tab PO DAILY 03/28/19 traZODone [Desyrel] 50 mg PO QHS 03/28/19 Surgical History: Surgical History (Last Updated 03/05/18 @ 14:36 by Akil Ramos) Presence of coronary angioplasty implant and graft (Chronic) Z95.04 March 2005 IVUS of LAD, May 2005 PTCA & 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 [place] History of open reduction and internal fixation (ORIF) procedure Z98.890 Left lower extremity History of surgery on arm Z98.890 Right arm d/t trauma Hx of CABG Z95.1 CABG X 3 vessels, CARTER to LAD, SVG to OM1, SVG to OM3 11/03 Surgical History: coronary bypass surgery Psychiatric History: Depression Lives: With Family Smoking Status: Current every day smoker Tobacco Use: Cigarettes, Pipe Alcohol: None Drugs: None - *Family History Maternal Family History: Family History (Last Updated 03/05/18 @ 14:37 by Akil Ramos) Father CAD (coronary artery disease) COPD (chronic obstructive pulmonary disease) CHF (congestive heart failure) Mother COPD (chronic obstructive pulmonary disease) History Items: No pertinent history Paternal Family History: Family History (Last Updated 03/05/18 @ 14:37 by Akil Ramos) Father CAD (coronary artery disease) COPD (chronic obstructive pulmonary disease) CHF (congestive heart failure) Mother COPD (chronic obstructive pulmonary disease) History Items: No pertinent history - Physical Exam Vital Signs Temp Pulse Resp BP Pulse Ox 36.4 C L 65 14 112/69 93 03/29/19 08:00 03/29/19 08:00 03/29/19 08:00 03/29/19 08:00 03/29/19 08:00 Oxygen Flow Rate (L/min) 2 Oxygen Delivery Method Nasal Cannula Weight: 76.929 kg Body Mass Index (BMI) 24.3 Finger Stick Blood Glucose 198 Intake and Output for Last 24 Hours 03/27/19 03/28/19 03/29/19 23:59 23:59 23:59 Intake Total 120 / 120 1718 / 1718 Output Total 1450 / 1450 Balance 120 / 120 268 / 268 Laboratory Tests Past 24 Hrs 03/28/19 03/28/19 03/28/19 12:05 12:05 12:05 WBC 9.0 RBC 4.49 L Hgb 13.8 Hct 42.0 MCV 93.5 MCH 30.7 MCHC 32.9 RDW 17.0 H RDW Differential 55.9 H Plt Count 360 MPV 9.7 Immature Gran % (Auto) 0.200 Neut % (Auto) 62.2 Lymph % (Auto) 26.5 Harnett % (Auto) 7.6 Eos % (Auto) 3.1 Baso % (Auto) 0.4 Absolute Neuts (auto) 5.6 Absolute Lymphs (auto) 2.38 Total Counted Not Reportable PT 14.4 INR 1.1 APTT 34.3 Sodium 137 Potassium 3.2 L Chloride 95 L Carbon Dioxide 31.0 Anion Gap 11 BUN 22 H Creatinine 1.86 H Estim Creat Clear Calc 47.42 Est GFR (MDRD) Af Amer 49 L Est GFR (MDRD) Non-Af 41 L BUN/Creatinine Ratio 11.8 Glucose 176 H Hemoglobin A1c Calcium 10.1 Troponin I < 0.015 Triglycerides Cholesterol LDL Cholesterol VLDL Cholesterol HDL Cholesterol TSH 03/28/19 03/28/19 03/29/19 12:05 12:05 06:03 WBC 7.0 RBC 4.16 L Hgb 12.7 L Hct 39.6 L MCV 95.2 H MCH 30.5 MCHC 32.1 RDW 16.8 H RDW Differential 57.8 H Plt Count 259 MPV 9.5 Immature Gran % (Auto) 0.100 Neut % (Auto) 55.1 Lymph % (Auto) 29.1 Harnett % (Auto) 10.8 H Eos % (Auto) 4.3 Baso % (Auto) 0.6 Absolute Neuts (auto) 3.8 Absolute Lymphs (auto) 2.03 Total Counted Not Reportable PT INR APTT Sodium Potassium Chloride Carbon Dioxide Anion Gap BUN Creatinine Estim Creat Clear Calc Est GFR (MDRD) Af Amer Est GFR (MDRD) Non-Af BUN/Creatinine Ratio Glucose Hemoglobin A1c 5.8 Calcium Troponin I Triglycerides Cholesterol LDL Cholesterol VLDL Cholesterol HDL Cholesterol TSH 0.63 03/29/19 06:03 WBC RBC Hgb Hct MCV MCH MCHC RDW RDW Differential Plt Count MPV Immature Gran % (Auto) Neut % (Auto) Lymph % (Auto) Harnett % (Auto) Eos % (Auto) Baso % (Auto) Absolute Neuts (auto) Absolute Lymphs (auto) Total Counted PT INR APTT Sodium 144 Potassium 3.5 Chloride 109 H Carbon Dioxide 31.0 Anion Gap 4 L BUN 15 Creatinine 0.96 Estim Creat Clear Calc 91.88 Est GFR (MDRD) Af Amer 106 Est GFR (MDRD) Non-Af 87 BUN/Creatinine Ratio 15.7 Glucose 119 H Hemoglobin A1c Calcium 8.8 Troponin I Triglycerides 123 Cholesterol 101 LDL Cholesterol 43 VLDL Cholesterol 25 HDL Cholesterol 33 L TSH POC Glucose 03/29/19 03/28/19 03/28/19 07:00 22:48 16:23 POC Glucose 131 H 100 113 H 03/28/19 12:03 POC Glucose 198 H MRI reviewed, there is an acute left MCA distribution infarct. Carotid ultrasound is consistent with high-grade stenosis in the left internal carotid artery.
--- NOTE | 2019-03-29 09:57 | CASEMGMT ---
RN SHAI assessment: Face to Face with patient for initial transition planning/care coordination assessment. RN CM introduced self and role at [facility], pt voices understanding and consents to assessment at this time. Pt is sitting up in bed in no distress at this time. Pt is A/Ox4 at this time and answers all questions appropriately at this time. Care providers, pharmacy, and demographics verified at this time. PCP: Pt states currently does not have a PCP but is working on getting into Dr. Katz. Specialists: Pt states has several specialists in [facility] but can't remember names at this time. Preferred Pharmacy: [facility] Insurance: [facility] Community Plan Prescription Benefit: [facility] Community Plan Living Will/HPOA: Pt states does not have LW/HPOA and declines info at this time. LNOK: Hafsa Weston stepmochelsy Living Arrangements: Pt states currently lives with his stepmother on main level of 2 story home and states no concerns at home at this time. Pt states is independent with ADL's. Pt states has syncopal episodes occasionally. Per charting, pt admits to meth and marijuana use also and states smoked both prior to coming to ED. Transportation: Pt states stepmom drives and states would like info on help with transportation at this time. DME/HHC: Pt states has the following DME: cane, walker, w/c, grab bars, shower chair, cpap, nebulizer, and home oxygen 4 liters continuous thru [facility]. Pt also states that there is a ramp entrance into home. Pt states is in the process of transferring to a DME company closer. Pt states no need for any further DME at this time. Pt states no hx of HHC or SNF in the past. Pt states is on disability. Pt states is currently working on getting [facility] but is unsure when that will come to fruition. Referral to [facility] for drug abuse, waiver and transportation resources at this time, voices understanding. Pt states smokes 1.5 packs of cigarettes daily and states 'quit drinking' ETOH. Pt does admit to marijuana use to this RN CM but does not mention the meth at this time. Pt voices no further questions/concerns/needs at this time. CM to follow PT/OT and for any further discharge planning/needs. Advised pt to ask for CM if any further questions/concerns/needs arise, voices understanding. Pt Goal: Home Plan: Home, pending PT/OT evals and neuro c/s. Enrique HERNANDEZ CM
[2019-03-29] MEDS: Insulin Lispro 100 UNIT/ML INSULN.PEN SC (11:30)
[2019-03-29] MEDS: HYDROcodone Bitartrate/Apap 5/325 Tablet PO (11:36)
[2019-03-29 11:40] LABS: Bedside Glucose 196 mg/dL (70-110)
--- NOTE | 2019-03-29 11:42 | CT_ITS ---
STUDY: CTA NECK WITH CONTRAST REASON FOR EXAM: Male, 53 years old. Right-sided weakness. Carotid stenosis. RADIATION DOSAGE (If Supplied By Facility): CTDIvol = ( 21.83 ) mGy, DLP = ( 656.7 ) mGycm TECHNIQUE: CT angiography with multi-detector data acquisition was performed from the aortic arch to the skull base following intravenous administration of 100 IV Isovue 370. MIP images were reconstructed from the axial data set. Post-processing of the angiographic images was performed, with multiplanar reformation and 3D reconstruction. Individualized dose optimization techniques were used for this CT. COMPARISON: None. FINDINGS: Prior CABG. AORTIC ARCH: There is atherosclerotic calcific plaque formation of the aortic arch and great vessels arising from the aortic arch, without a hemodynamically significant stenosis. There is a normal origin of the brachiocephalic, left common carotid, and left subclavian arteries. RIGHT CAROTID ARTERIES: Normal right common carotid artery (CCA). Normal right common carotid bulb. There is extensive atherosclerotic plaque formation of the origin of the right internal carotid artery with an estimated stenosis of greater than 70%. Calcific plaque in the proximal cervical right internal carotid artery causing approximately 50% narrowing. Normal origin of the right external carotid artery (ECA). LEFT CAROTID ARTERIES: Normal left common carotid artery (CCA). Normal left common carotid bulb. There is severe atherosclerotic plaque formation of the origin of the left internal carotid artery with a near complete occlusion. Possibly 50% narrowing of the cervical portion of the left internal carotid artery. Normal origin of the left external carotid artery (ECA). VERTEBRAL ARTERIES: Nonvisualization of the proximal left vertebral artery. Tiny opacified distal portion of the left vertebral artery. Dominant right vertebral artery. Atherosclerotic plaque at the origin of the right vertebral artery causing approximately 50-60% narrowing. CT/CTA Neck W/WO Contrast IMPRESSION: High-grade stenosis at the origin of both the right and left internal carotid arteries worse on the left side. Nonvisualization of the proximal portion of the left vertebral artery. Electronically Signed: Harry Voss, at 13:45 EDT , Service support ,
--- NOTE | 2019-03-29 11:47 | PN_ITS ---
<Alina Platt - Last Filed: 03/29/19 12:01> Subjective: Patient seen and examined. Continues to complain of right upper extremity and right lower extremity weakness. Reports right eye vision changes as well although he reports this is been on going. Denies other new neurologic symptoms. - Physical Exam General: Alert, Oriented x3, Cooperative HEENT: Atraumatic, PERRLA, EOMI, Normocephalic Neck: Supple, No JVD, Negative Carotid Bruits Lungs: Clear to auscultation, Normal air movement Cardiovascular: Regular rate, Regular Rhythm, Normal S1, Normal S2, No murmurs Abdomen: Bowel Sounds Present, Soft, Non Tender, Non-Distended Extremities: No clubbing, No cyanosis, No edema, Capillary Refill Less than 3 Seconds Skin: No rashes, No breakdown Musculoskeletal: No Tenderness to Palpation of Joints or Extremities Neurological: Cranial nerves II-XII grossly intact, Neuro grossly intact, - - RUE/RLE 4/5 strength. Psych/Mental Status: Normal Affect, Appropriate Vital Signs Temp Pulse Resp BP Pulse Ox 97.6 F L 65 14 112/69 93 03/29/19 08:00 03/29/19 08:00 03/29/19 08:00 03/29/19 08:00 03/29/19 08:00 Oxygen Flow Rate (L/min) 2 Oxygen Delivery Method Nasal Cannula Weight: 169 lb 9.6 oz Body Mass Index (BMI) 24.3 Finger Stick Blood Glucose 198 Intake and Output for Last 24 Hours 03/27/19 03/28/19 03/29/19 23:59 23:59 23:59 Intake Total 120 / 120 3131 / 3131 Output Total 1900 / 1900 Balance 120 / 120 1231 / 1231 Laboratory Tests Past 24 Hrs 03/28/19 03/28/19 03/28/19 12:05 12:05 12:05 WBC 9.0 RBC 4.49 L Hgb 13.8 Hct 42.0 MCV 93.5 MCH 30.7 MCHC 32.9 RDW 17.0 H RDW Differential 55.9 H Plt Count 360 MPV 9.7 Immature Gran % (Auto) 0.200 Neut % (Auto) 62.2 Lymph % (Auto) 26.5 [place] % (Auto) 7.6 Eos % (Auto) 3.1 Baso % (Auto) 0.4 Absolute Neuts (auto) 5.6 Absolute Lymphs (auto) 2.38 Total Counted Not Reportable PT 14.4 INR 1.1 APTT 34.3 Sodium 137 Potassium 3.2 L Chloride 95 L Carbon Dioxide 31.0 Anion Gap 11 BUN 22 H Creatinine 1.86 H Estim Creat Clear Calc 47.42 Est GFR (MDRD) Af Amer 49 L Est GFR (MDRD) Non-Af 41 L BUN/Creatinine Ratio 11.8 Glucose 176 H Hemoglobin A1c Calcium 10.1 Troponin I < 0.015 Triglycerides Cholesterol LDL Cholesterol VLDL Cholesterol HDL Cholesterol TSH 03/28/19 03/28/19 03/29/19 12:05 12:05 06:03 WBC 7.0 RBC 4.16 L Hgb 12.7 L Hct 39.6 L MCV 95.2 H MCH 30.5 MCHC 32.1 RDW 16.8 H RDW Differential 57.8 H Plt Count 259 MPV 9.5 Immature Gran % (Auto) 0.100 Neut % (Auto) 55.1 Lymph % (Auto) 29.1 [place] % (Auto) 10.8 H Eos % (Auto) 4.3 Baso % (Auto) 0.6 Absolute Neuts (auto) 3.8 Absolute Lymphs (auto) 2.03 Total Counted Not Reportable PT INR APTT Sodium Potassium Chloride Carbon Dioxide Anion Gap BUN Creatinine Estim Creat Clear Calc Est GFR (MDRD) Af Amer Est GFR (MDRD) Non-Af BUN/Creatinine Ratio Glucose Hemoglobin A1c 5.8 Calcium Troponin I Triglycerides Cholesterol LDL Cholesterol VLDL Cholesterol HDL Cholesterol TSH 0.63 03/29/19 06:03 WBC RBC Hgb Hct MCV MCH MCHC RDW RDW Differential Plt Count MPV Immature Gran % (Auto) Neut % (Auto) Lymph % (Auto) [place] % (Auto) Eos % (Auto) Baso % (Auto) Absolute Neuts (auto) Absolute Lymphs (auto) Total Counted PT INR APTT Sodium 144 Potassium 3.5 Chloride 109 H Carbon Dioxide 31.0 Anion Gap 4 L BUN 15 Creatinine 0.96 Estim Creat Clear Calc 91.88 Est GFR (MDRD) Af Amer 106 Est GFR (MDRD) Non-Af 87 BUN/Creatinine Ratio 15.7 Glucose 119 H Hemoglobin A1c Calcium 8.8 Troponin I Triglycerides 123 Cholesterol 101 LDL Cholesterol 43 VLDL Cholesterol 25 HDL Cholesterol 33 L TSH POC Glucose 03/29/19 03/29/19 03/28/19 11:28 07:00 22:48 POC Glucose 196 H 131 H 100 03/28/19 03/28/19 16:23 12:03 POC Glucose 113 H 198 H Medical Necessity - Tobacco Use Smoking Status: Current every day smoker Tobacco Use: Cigarettes, Pipe Assessment/Plan 1. Acute-subacute small left MCA infarct-MRI of brain showed cluster of small acute subacute infarcts most prominent in the posterior lateral cortex of the left precentral gyrus. Carotid ultrasound with less than 50% stenosis right internal and external carotid. Greater than 70% stenosis left internal carotid. Greater than 50% stenosis left external carotid. Neurology consulted. Echocardiogram pending. Patient continues to have mild right-sided weakness. PT/OT/ST. continue aspirin, statin. Patient prior on anticoagulation with Eliquis for paroxysmal atrial fibrillation which was discontinued due to GI bleed. Anticipate patient will need to resume anticoagulation for further stroke prevention. 2. Paroxysmal atrial fibrillation-rate controlled. Prior on Eliquis which was discontinued 2 years prior due to GI bleed with anemia. 3. History of GI bleeding-hemoglobin stable. No further bleeding reported. 4. Hypertension-stable, continue nitrates, sotalol. Lisinopril on hold. 5. Hyperlipidemia-continue statin. 6. Acute kidney injury-secondary to diuretic regimen, dehydration. Resolved. 7. Type 2 diabetes [id number] AC at bedtime with sliding scale insulin. Hemoglobin A1c 5.8%. 8. CAD status post CABG and stents-continue aspirin, statin, nitrates, sotalol. 9. Recurrent syncope status post loop recorder placement with no significant findings 10. Polysubstance abuse-patient admits to marijuana and methamphetamine use. DVT prophylaxis-heparin subcu This patient was seen by DIANA Lujan under the supervision of Dr. Arboleda. <Annamaria Arboleda - Last Filed: 03/29/19 17:36> - Physical Exam Vital Signs Temp Pulse Resp BP Pulse Ox 98.0 F 65 16 97/59 L 100 03/29/19 12:00 03/29/19 15:00 03/29/19 12:00 03/29/19 12:00 03/29/19 12:00 Oxygen Flow Rate (L/min) 2 Oxygen Delivery Method Nasal Cannula Weight: 76.929 kg Body Mass Index (BMI) 24.3 Finger Stick Blood Glucose 198 Intake and Output for Last 24 Hours 03/27/19 03/28/19 03/29/19 23:59 23:59 23:59 Intake Total 120 / 120 3131 / 3131 Output Total 1900 / 1900 Balance 120 / 120 1231 / 1231 Laboratory Tests Past 24 Hrs 03/29/19 03/29/19 06:03 06:03 WBC 7.0 RBC 4.16 L Hgb 12.7 L Hct 39.6 L MCV 95.2 H MCH 30.5 MCHC 32.1 RDW 16.8 H RDW Differential 57.8 H Plt Count 259 MPV 9.5 Immature Gran % (Auto) 0.100 Neut % (Auto) 55.1 Lymph % (Auto) 29.1 [place] % (Auto) 10.8 H Eos % (Auto) 4.3 Baso % (Auto) 0.6 Absolute Neuts (auto) 3.8 Absolute Lymphs (auto) 2.03 Total Counted Not Reportable Sodium 144 Potassium 3.5 Chloride 109 H Carbon Dioxide 31.0 Anion Gap 4 L BUN 15 Creatinine 0.96 Estim Creat Clear Calc 91.88 Est GFR (MDRD) Af Amer 106 Est GFR (MDRD) Non-Af 87 BUN/Creatinine Ratio 15.7 Glucose 119 H Calcium 8.8 Triglycerides 123 Cholesterol 101 LDL Cholesterol 43 VLDL Cholesterol 25 HDL Cholesterol 33 L POC Glucose 03/29/19 03/29/19 03/28/19 11:28 07:00 22:48 POC Glucose 196 H 131 H 100 Assessment/Plan This patient was seen in conjunction with Alina Platt NP. I have independently interviewed and examined the patient and reviewed pertinent historical, laboratory, and other data. Please refer to her note for patient's presentation, findings, and recommendations. Patient was seen and examined. Admitted yesterday with change in speech and right arm weakness. Patient had reported difficulty speaking around 8 AM and he was brought to the ED. He had complaint of numbness and weakness in the right upper extremity ongoing for days. He admits to blurred vision with loss of vision in the right eye. Has been off his Eliquis on account of GI bleed. Patient's admitting NIH SS scale was 2. He was admitted to the telemetry bed. He was found to have acute stroke MRI. There was a cluster of small acute?subacute infarcts most prominent in the posterior lateral cortex of the left precentral gyrus in the left MCA territory. Carotid duplex showed irregular calcific plaques in the distal left common carotid and proximal internal and external carotid. It was more than 70% stenosis of the left internal carotid and more than 50% stenosis of the left external carotid. CTA neck that showed high-grade stenosis of the origin of both the right and left internal carotid artery was on the left. Patient had also expressed suicidal ideation to the speech therapist and case management social worker during the work-up for stroke. He had expressed being depressed, and wishes to . He admits to wanting to drink himself to or shooting himself with a gun. Vitals were reviewed -blood pressure is running relatively low, not on any blood pressure pills Labs reviewed: Physical Exam: Gen: Looks in some discomfort, not pale, not jaundiced, alert oriented x3, flat affect, on 2 L of oxygen CVS:HS I +II, regular, no murmurs RESP: Clinically clear to auscultation GI: BS present and normal, nontender, no palpable organs EXT:No edema [employer]:Cranial nerves II-XII grossly intact, Neuro grossly intact, RUE/RLE 4/5 strength. ASSESSMENT: 1. Acute/subacute left MCA infarct, confirmed on MRI wish to cluster of small subacute infarcts in the MCA distribution territory, 2. Left internal carotid stenosis 3. Paroxysmal atrial fibrillation, off Eliquis for 2 years, on sotalol 4. History of GI bleed, unable to collaborate history, stable hemoglobin, no bleeding seen 5. Hypertension, lisinopril on hold 6. NIGEL secondary to dehydration, resolved 7. Type II DM, blood sugars are controlled 8. CAD status post CABG status post stents, on aspirin, statin, nitrates, sotalol 9. Recurrent syncope status post loop recorder placement 10. History of polysubstance abuse Meds reviewed Plan: Patient's GI information not on clinic setting Will resume Eliquis and monitor for GI bleed as benefit outweighs the risk Suicide precaution with sitter, mobile crisis consulted Patient has been pink slipped Code Visit Inpatient E&M: 56625 Subs Hosp L3
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
[2019-03-29] MEDS: Pregabalin 75 MG Capsule PO (15:17)
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
--- NOTE | 2019-03-29 16:24 | CASEMGMT ---
Patient will need to be seen by crisis before discharge, however he is not medically cleared. Crisis will not see patient's until they are mediclaly cleared. Peg ASHER MSW
[2019-03-29 17:30] LABS: Bedside Glucose 120 mg/dL (70-110)
--- NOTE | 2019-03-29 18:45 | NURSING ---
Patient began getting emotional, and tearful with speech therapy today during their evaluation around 1530. ST felt it appropriate for Social work to get involved based on some of the statements he was making and felt he may have been at risk for harming himself. After SW evaluated patient, they did confirm that he seemed at risk for self harm and notified Hospitalist. Patient was then put in suicide precautions with a seitter at bedside and did not take this well. He became very frustrated and upset and didnt feel he was being treated appropriately And then began requesting to leave AMA. He was counseled by myself, SW, director on air and Nurse practitioner of why these precautions were being implemented and why he could no longer leave. We had the patient moved to a different room in front of nursing station and awaited Evaluation by Crisis Team. After Evaluation by Crisis it was decided that he was not at risk to harm himself. Patient was then counseled numerous times about staying in the hospital to continue care/treatment but he continued to refuse and wanted to leave. Patient was given education on leaving AMA, AMA papers were given to patient and were signed by patient. He then walked off the unit on his own to Leave AMA.
--- NOTE | 2019-03-30 08:22 | PCM.DC.SUM ---
<Alina Platt - Last Filed: 03/30/19 09:03> Discharge Date and Diagnosis Date of Admission: 03/28/19 Date of Discharge: 03/29/19 - Primary Discharge Diagnosis 1. Acute-subacute small left MCA infarct 2. Paroxysmal atrial fibrillation 3. History of GI bleed 4. Hypertension 5. Hyperlipidemia 6. Acute kidney injury, resolved 7. Type 2 diabetes mellitus 8. CAD status post CABG and stents 9. Recurrent syncope status post loop recorder placement with no significant findings 10. Polysubstance abuse 11. 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 [place] Paroxysmal atrial fibrillation (Chronic) Diabetes mellitus (Chronic) Hypertension (Chronic) Hyperlipidemia (Chronic) Nicotine abuse (Chronic) Hospital Course and Treatment Imaging Results: Diagnostic Data Brain CT 03/28/19 12:34 IMPRESSION: Normal unenhanced CT scan of the brain. Electronically Signed: Harry Voss, at 13:23 EDT , Service support , ADDENDUM: 03/28/19 1704 Chest X-Ray 03/28/19 13:02 IMPRESSION: Basilar congestion with increased markings at the lung bases worse on the left side suggestive of superimposed bibasilar atelectasis. Electronically Signed: Harry Voss, at 13:46 EDT , Service support , Brain MRI 03/28/19 15:23 IMPRESSION: Cluster of small acute-subacute infarcts most prominent in the posterior lateral cortex of the left precentral gyrus (left MCA territory). No hemorrhage. at 2000 Reported and signed by: Rick Best MD Electronically Signed: Rick Best, at 19:59 EDT Tel , Service support , ADDENDUM: 03/28/192011 IMPRESSION: Cluster of small acute-subacute infarcts most prominent in the posterior lateral cortex of the left precentral gyrus (left MCA territory). No hemorrhage. at 2000 Reported and signed by: Rick Best MD N.B. : PERCY BARLOW RN, confirmed on 03/28/2019 20:05:42 (ET) that the referring physician received the radiology report. Electronically Signed: Rick Best, at 19:59 EDT Tel , Service support , Neck CTA 03/29/19 11:42 IMPRESSION: High-grade stenosis at the origin of both the right and left internal carotid arteries worse on the left side. Nonvisualization of the proximal portion of the left vertebral artery. Electronically Signed: Harry Voss, at 13:45 EDT , Service support , Dr. Dejesus- Neurology Operations: None Procedures: 2-D Echocardiogram Summary of Care Provided: The patient is a 53 year old M admitted 03/28/2018 due to changes in speech, right arm weakness. 1. Acute-subacute small left MCA infarct-MRI of brain showed cluster of small acute subacute infarcts most prominent in the posterior lateral cortex of the left precentral gyrus. Carotid ultrasound with less than 50% stenosis right internal and external carotid. Greater than 70% stenosis left internal carotid. Greater than 50% stenosis left external carotid. Neurology consulted. Echocardiogram showed an EF of 55%, mild mitral valve insufficiency, mild to moderate tricuspid valve insufficiency, RVSP estimated to be 47 mmHg. Patient continues to have mild right-sided weakness. Patient prior on anticoagulation with Eliquis for paroxysmal atrial fibrillation which was discontinued due to GI bleed. Given new stroke recommended patient resume Eliquis at discharge. Continue aspirin, statin. Patient elected to sign out AGAINST MEDICAL ADVICE. Recommended follow-up with neurology and primary care provider. 2. Paroxysmal atrial fibrillation-rate controlled. Recommend resuming Eliquis. 3. History of GI bleeding-hemoglobin stable. No further bleeding reported. 4. Hypertension-stable, continue nitrates, sotalol, Lisinopril. 5. Hyperlipidemia-continue statin. 6. Acute kidney injury-secondary to diuretic regimen, dehydration. Resolved. 7. Type 2 diabetes mellitus-Hemoglobin A1c 5.8%. 8. CAD status post CABG and stents-continue aspirin, statin, nitrates, sotalol. 9. Recurrent syncope status post loop recorder placement with no significant findings 10. Polysubstance abuse-patient admits to marijuana and methamphetamine use. 11. Depression/suicidal threats-Patient reported to addiction social worker that he planned on drinking heavily and had a gun at home. Crisis was then asked to evaluate patient who had a lengthy discussion with patient and cleared him for discharge. Patient then signed out AMA. General: Alert, Oriented x3, Cooperative HEENT: Atraumatic, PERRLA, EOMI, Normocephalic Neck: Supple, No JVD, Negative Carotid Bruits Lungs: Clear to auscultation, Normal air movement Cardiovascular: Regular rate, Regular Rhythm, Normal S1, Normal S2, No murmurs Abdomen: Bowel Sounds Present, Soft, Non Tender, Non-Distended Extremities: No clubbing, No cyanosis, No edema, Capillary Refill Less than 3 Seconds Skin: No rashes, No breakdown Musculoskeletal: No Tenderness to Palpation of Joints or Extremities Neurological: Cranial nerves II-XII grossly intact, Neuro grossly intact, - - RUE/RLE 4/5 strength. Psych/Mental Status: Normal Affect, Appropriate Patient seen and examined prior to discharge. Physical assessment as noted above. Patient was cleared by crisis and signed out AGAINST MEDICAL ADVICE. This patient was seen by DIANA Lujan under the supervision of Dr. Arboleda. - Physical Exam Vital Signs Temp Pulse Resp BP Pulse Ox 97.8 F 64 16 128/81 H 98 03/29/19 15:55 03/29/19 15:55 03/29/19 15:55 03/29/19 15:55 03/29/19 15:55 Oxygen Flow Rate (L/min) 2 Oxygen Delivery Method Nasal Cannula Weight: 169 lb 9.59 oz Body Mass Index (BMI) 24.3 Finger Stick Blood Glucose 198 Intake and Output for Last 24 Hours 03/28/19 03/29/19 03/30/19 23:59 23:59 23:59 Intake Total 120 / 120 3131 / 3131 Output Total 1900 / 1900 Balance 120 / 120 1231 / 1231 POC Glucose 03/29/19 03/29/19 17:23 11:28 POC Glucose 120 H 196 H Home Medications: Medications to take at Discharge Gabapentin [Neurontin] 1,200 mg PO TIDCM 12/07/15 Loratadine [Claritin] 10 mg PO DAILY 12/07/15 Metformin HCl [Glucophage] 1,000 mg PO BIDCM 12/07/15 Omeprazole [Prilosec] 20 mg PO DAILY 12/07/15 duloxetine 60 mg capsule,delayed release 60 mg PO DAILY 01/13/18 lisinopril 10 mg tablet 10 mg PO DAILY 09/27/18 ferrous sulfate 325 mg (65 mg iron) tablet 325 mg PO DAILY tab 11/26/18 Atorvastatin Calcium [Lipitor] 20 mg PO QHS 03/28/19 Cholecalciferol (Vitamin D3) [Vitamin D3] 5,000 unit PO DAILY 03/28/19 Ertugliflozin Pidolate [Steglatro] 5 mg PO DAILY 03/28/19 Ezetimibe [Zetia] 10 mg PO DAILY 03/28/19 Furosemide [Lasix] 40 mg PO BID 03/28/19 Isosorbide Mononitrate [Imdur] 120 mg PO DAILY 03/28/19 Pregabalin [Lyrica] 75 mg PO TID 03/28/19 Sotalol HCl [Sotalol] 120 mg PO DAILY 03/28/19 Vitamin B Complex [B Complex] 1 tab PO DAILY 03/28/19 traZODone [Desyrel] 50 mg PO QHS 03/28/19 Primary Care Physician: Care Physician,No Primary [Primary Care Provider] - Please follow up with your Primary Care Physician in: 1 Week Please Follow Up With: Grayson Dejesus MD When: 2-4 Weeks Please Follow Up With: Junito Swift MD When: 1-2 Weeks Disposition: Against Medical Advice Minutes spent on discharge:: 35 Patient Condition:: Stable Medical Necessity - Tobacco Use Smoking Status: Current every day smoker Tobacco Use: Cigarettes, Pipe Meaningful Use Info Meaningful Use Diagnoses (Choose all that apply): Ischemic CVA - CVA Therapy Assessed for PT,OT and/or ST?: Yes - Ischemic Stroke Antithrombotic order at d/c?: Yes Dx of Atrial fib/flutter?: Yes Anticoagulant at discharge?: No Reason anticoagulant not ordered: Treatment Refused by Pt Statins at discharge?: Yes Primary Dx Acute Ischemic CVA?: Yes IV tPA ordered during stay?: No Reason IV t-PA not ordered: Medical Contraindication <Annamaria Arobleda - Last Filed: 03/31/19 15:44> Discharge Date and Diagnosis - Secondary Discharge Diagnosis Chronic Problems (Last Updated 03/28/19 @ 14:37 by Fadia Starkey MD) Typical atrial flutter (Chronic) Other specified cardiac device in situ (Chronic) Presence of coronary angioplasty implant and graft (Chronic) February 2005 IVUS of LAD, May 2005 PTCA & ALBAN X 3 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 [place] Paroxysmal atrial fibrillation (Chronic) Diabetes mellitus (Chronic) Hypertension (Chronic) Hyperlipidemia (Chronic) Nicotine abuse (Chronic) Hospital Course and Treatment Summary of Care Provided: This patient was seen in conjunction with Alina Platt NP. I have independently interviewed and examined the patient and reviewed pertinent historical, laboratory, and other data. Please refer to her note for patient's presentation, findings, and recommendations. 53-year-old male admitted yesterday with change in speech and right arm weakness. Patient had reported difficulty speaking around 8 AM and he was brought to the ED. He had complaint of numbness and weakness in the right upper extremity ongoing for days. He admits to blurred vision with loss of vision in the right eye. Has been off his Eliquis on account of GI bleed. Patient's admitting NIH SS scale was 2. He was admitted to the telemetry bed. He was found to have acute stroke MRI. There was a cluster of small acute?subacute infarcts most prominent in the posterior lateral cortex of the left precentral gyrus in the left MCA territory. Carotid duplex showed irregular calcific plaques in the distal left common carotid and proximal internal and external carotid. It was more than 70% stenosis of the left internal carotid and more than 50% stenosis of the left external carotid. CTA neck that showed high-grade stenosis of the origin of both the right and left internal carotid artery was on the left. Patient had also expressed suicidal ideation to the speech therapist and addiction social worker during the work-up for stroke. He had expressed being depressed, and wishes to . He admits to wanting to drink himself to or shooting himself with a gun. Vitals were reviewed -blood pressure is running relatively low, not on any blood pressure pills Labs reviewed: Physical Exam: Gen: Looks in some discomfort, not pale, not jaundiced, alert oriented x3, flat affect, on 2 L of oxygen CVS:HS I +II, regular, no murmurs RESP: Clinically clear to auscultation GI: BS present and normal, nontender, no palpable organs EXT:No edema ASSOCIATE ACCOUNT DIRECTOR:Cranial nerves II-XII grossly intact, Neuro grossly intact, RUE/RLE 4/5 strength. ASSESSMENT: 1. Acute/subacute left MCA infarct, confirmed on MRI wish to cluster of small subacute infarcts in the MCA distribution territory, 2. Left internal carotid stenosis 3. Paroxysmal atrial fibrillation, off Eliquis for 2 years, on sotalol 4. History of GI bleed, unable to collaborate history, stable hemoglobin, no bleeding seen 5. Hypertension, lisinopril on hold 6. NIGEL secondary to dehydration, resolved 7. Type II DM, blood sugars are controlled 8. CAD status post CABG status post stents, on aspirin, statin, nitrates, sotalol 9. Recurrent syncope status post loop recorder placement 10. History of polysubstance abuse Patient was seen by mobile crisis in clinic. He signed out AGAINST MEDICAL ADVICE. - Physical Exam Vital Signs Temp Pulse Resp BP Pulse Ox 97.8 F 64 16 128/81 H 98 03/29/19 15:55 03/29/19 15:55 03/29/19 15:55 03/29/19 15:55 03/29/19 15:55 Oxygen Flow Rate (L/min) 2 Oxygen Delivery Method Nasal Cannula Weight: 76.929 kg Body Mass Index (BMI) 24.3 Finger Stick Blood Glucose 198 Intake and Output for Last 24 Hours 03/29/19 03/30/19 03/31/19 23:59 23:59 23:59 Intake Total 3131 / 3131 Output Total 1900 / 1900 Balance 1231 / 1231 Discharge Diet: Low fat/ Low Cholesterol, 2000 mg Sodium Diet Code Visit Inpatient E&M: 20269 Disch Hosp
--- NOTE | 2019-03-30 08:29 | DS.PCM_ITS ---
<Alina Platt - Last Filed: 03/30/19 09:03> Discharge Date and Diagnosis Date of Admission: 03/28/19 Date of Discharge: 03/29/19 - Primary Discharge Diagnosis 1. Acute-subacute small left MCA infarct 2. Paroxysmal atrial fibrillation 3. History of GI bleed 4. Hypertension 5. Hyperlipidemia 6. Acute kidney injury, resolved 7. Type 2 diabetes mellitus 8. CAD status post CABG and stents 9. Recurrent syncope status post loop recorder placement with no significant findings 10. Polysubstance abuse 11. 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 Dinosaur Paroxysmal atrial fibrillation (Chronic) Diabetes mellitus (Chronic) Hypertension (Chronic) Hyperlipidemia (Chronic) Nicotine abuse (Chronic) Hospital Course and Treatment Imaging Results: Diagnostic Data Brain CT 03/28/19 12:34 IMPRESSION: Normal unenhanced CT scan of the brain. Electronically Signed: Harry Voss, at 13:23 EDT , Service support , ADDENDUM: 03/28/19 1704 Chest X-Ray 03/28/19 13:02 IMPRESSION: Basilar congestion with increased markings at the lung bases worse on the left side suggestive of superimposed bibasilar atelectasis. Electronically Signed: Harry Voss, at 13:46 EDT , Service support , Brain MRI 03/28/19 15:23 IMPRESSION: Cluster of small acute-subacute infarcts most prominent in the posterior lateral cortex of the left precentral gyrus (left MCA territory). No hemorrhage. at 2000 Reported and signed by: Rick Best MD Electronically Signed: Rick Best, at 19:59 EDT Tel , Service support , ADDENDUM: 03/28/192011 IMPRESSION: Cluster of small acute-subacute infarcts most prominent in the posterior lateral cortex of the left precentral gyrus (left MCA territory). No hemorrhage. at 2000 Reported and signed by: Rick Best MD N.B. : PERCY BARLOW RN, confirmed on 03/28/2019 20:05:42 (ET) that the referring physician received the radiology report. Electronically Signed: Rick Best, at 19:59 EDT Tel , Service support , Neck CTA 03/29/19 11:42 IMPRESSION: High-grade stenosis at the origin of both the right and left internal carotid arteries worse on the left side. Nonvisualization of the proximal portion of the left vertebral artery. Electronically Signed: Harry Voss, at 13:45 EDT , Service support , Dr. Dejesus- Neurology Operations: None Procedures: 2-D Echocardiogram Summary of Care Provided: The patient is a 53 year old M admitted 03/28/2018 due to changes in speech, right arm weakness. 1. Acute-subacute small left MCA infarct-MRI of brain showed cluster of small acute subacute infarcts most prominent in the posterior lateral cortex of the left precentral gyrus. Carotid ultrasound with less than 50% stenosis right internal and external carotid. Greater than 70% stenosis left internal carotid. Greater than 50% stenosis left external carotid. Neurology consulted. Echoc ardiogram showed an EF of 55%, mild mitral valve insufficiency, mild to moderate tricuspid valve insufficiency, RVSP estimated to be 47 mmHg. Patient continues to have mild right-sided weakness. Patient prior on anticoagulation with Eliquis for paroxysmal atrial fibrillation which was discontinued due to GI bleed. Given new stroke recommended patient resume Eliquis at discharge. Continue aspirin, statin. Patient elected to sign out AGAINST MEDICAL ADVICE. Recommended follow-up with neurology and primary care provider. 2. Paroxysmal atrial fibrillation-rate controlled. Recommend resuming Eliquis. 3. History of GI bleeding-hemoglobin stable. No further bleeding reported. 4. Hypertension-stable, continue nitrates, sotalol, Lisinopril. 5. Hyperlipidemia-continue statin. 6. Acute kidney injury-secondary to diuretic regimen, dehydration. Resolved. 7. Type 2 diabetes mellitus-Hemoglobin A1c 5.8%. 8. CAD status post CABG and stents-continue aspirin, statin, nitrates, sotalol. 9. Recurrent syncope status post loop recorder placement with no significant findings 10. Polysubstance abuse-patient admits to marijuana and methamphetamine use. 11. Depression/suicidal threats-Patient reported to social work supervisor that he planned on drinking heavily and had a gun at home. Crisis was then asked to evaluate patient who had a lengthy discussion with patient and cleared him for discharge. Patient then signed out AMA. General: Alert, Oriented x3, Cooperative HEENT: Atraumatic, PERRLA, EOMI, Normocephalic Neck: Supple, No JVD, Negative Carotid Bruits Lungs: Clear to auscultation, Normal air movement Cardiovascular: Regular rate, Regular Rhythm, Normal S1, Normal S2, No murmurs Abdomen: Bowel Sounds Present, Soft, Non Tender, Non-Distended Extremities: No clubbing, No cyanosis, No edema, Capillary Refill Less than 3 Seconds Skin: No rashes, No breakdown Musculoskeletal: No Tenderness to Palpation of Joints or Extremities Neurological: Cranial nerves II-XII grossly intact, Neuro grossly intact, - - RUE/RLE 4/5 strength. Psych/Mental Status: Normal Affect, Appropriate Patient seen and examined prior to discharge. Physical assessment as noted above. Patient was cleared by crisis and signed out AGAINST MEDICAL ADVICE. This patient was seen by DIANA Lujan under the supervision of Dr. Arboleda. - Physical Exam Vital Signs Temp Pulse Resp BP Pulse Ox 97.8 F 64 16 128/81 H 98 03/29/19 15:55 03/29/19 15:55 03/29/19 15:55 03/29/19 15:55 03/29/19 15:55 Oxygen Flow Rate (L/min) 2 Oxygen Delivery Method Nasal Cannula Weight: 169 lb 9.59 oz Body Mass Index (BMI) 24.3 Finger Stick Blood Glucose 198 Intake and Output for Last 24 Hours 03/28/19 03/29/19 03/30/19 23:59 23:59 23:59 Intake Total 120 / 120 3131 / 3131 Output Total 1900 / 1900 Balance 120 / 120 1231 / 1231 POC Glucose 03/29/19 03/29/19 17:23 11:28 POC Glucose 120 H 196 H Home Medications: Medications to take at Discharge Gabapentin [Neurontin] 1,200 mg PO TIDCM 12/07/15 Loratadine [Claritin] 10 mg PO DAILY 12/07/15 Metformin HCl [Glucophage] 1,000 mg PO BIDCM 12/07/15 Omeprazole [Prilosec] 20 mg PO DAILY 12/07/15 duloxetine 60 mg capsule,delayed release 60 mg PO DAILY 01/13/18 lisinopril 10 mg tablet 10 mg PO DAILY 09/27/18 ferrous sulfate 325 mg (65 mg iron) tablet 325 mg PO DAILY tab 11/26/18 Atorvastatin Calcium [Lipitor] 20 mg PO QHS 03/28/19 Cholecalciferol (Vitamin D3) [Vitamin D3] 5,000 unit PO DAILY 03/28/19 Ertugliflozin Pidolate [Steglatro] 5 mg PO DAILY 03/28/19 Ezetimibe [Zetia] 10 mg PO DAILY 03/28/19 Furosemide [Lasix] 40 mg PO BID 03/28/19 Isosorbide Mononitrate [Imdur] 120 mg PO DAILY 03/28/19 Pregabalin [Lyrica] 75 mg PO TID 03/28/19 Sotalol HCl [Sotalol] 120 mg PO DAILY 03/28/19 Vitamin B Complex [B Complex] 1 tab PO DAILY 03/28/19 traZODone [Desyrel] 50 mg PO QHS 03/28/19 Primary Care Physician: Care Physician,No Primary [Primary Care Provider] - Please follow up with your Primary Care Physician in: 1 Week Please Follow Up With: Grayson Dejesus MD When: 2-4 Weeks Please Follow Up With: Junito Swift MD When: 1-2 Weeks Disposition: Against Medical Advice Minutes spent on discharge:: 35 Patient Condition:: Stable Medical Necessity - Tobacco Use Smoking Status: Current every day smoker Tobacco Use: Cigarettes, Pipe Meaningful Use Info Meaningful Use Diagnoses (Choose all that apply): Ischemic CVA - CVA Therapy Assessed for PT,OT and/or ST?: Yes - Ischemic Stroke Antithrombotic order at d/c?: Yes Dx of Atrial fib/flutter?: Yes Anticoagulant at discharge?: No Reason anticoagulant not ordered: Treatment Refused by Pt Statins at discharge?: Yes Primary Dx Acute Ischemic CVA?: Yes IV tPA ordered during stay?: No Reason IV t-PA not ordered: Medical Contraindication <Paint[place] - Last Filed: 03/31/19 15:44> Discharge Date and Diagnosis - Secondary Discharge Diagnosis Chronic Problems (Last Updated 03/28/19 @ 14:37 by Fadia Starkey MD) Typical atrial flutter (Chronic) Other specified cardiac device in situ (Chronic) Presence of coronary angioplasty implant and graft (Chronic) February 2005 IVUS of LAD, May 2005 PTCA & ALBAN X 3 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 Dinosaur Paroxysmal atrial fibrillation (Chronic) Diabetes mellitus (Chronic) Hypertension (Chronic) Hyperlipidemia (Chronic) Nicotine abuse (Chronic) Hospital Course and Treatment Summary of Care Provided: This patient was seen in conjunction with Alina Platt NP. I have in dependently interviewed and examined the patient and reviewed pertinent historical, laboratory, and other data. Please refer to her note for patient's presentation, findings, and recommendations. 53-year-old male admitted yesterday with change in speech and right arm weakness. Patient had reported difficulty speaking around 8 AM and he was brought to the ED. He had complaint of numbness and weakness in the right upper extremity ongoing for days. He admits to blurred vision with loss of vision in the right eye. Has been off his Eliquis on account of GI bleed. Patient's admitting NIH SS scale was 2. He was admitted to the telemetry bed. He was found to have acute stroke MRI. There was a cluster of small acute?subacute infarcts most prominent in the posterior lateral cortex of the left precentral gyrus in the left MCA territory. Carotid duplex showed irregular calcific plaques in the distal left common carotid and proximal internal and external carotid. It was more than 70% stenosis of the left internal carotid and more than 50% stenosis of the left external carotid. CTA neck that showed high-grade stenosis of the origin of both the right and left internal carotid artery was on the left. Patient had also expressed suicidal ideation to the speech therapist and social work supervisor during the work-up for stroke. He had expressed being depressed, and wishes to . He admits to wanting to drink himself to or shooting himself with a gun. Vitals were reviewed -blood pressure is running relatively low, not on any blood pressure pills Labs reviewed: Physical Exam: Gen: Looks in some discomfort, not pale, not jaundiced, alert oriented x3, flat affect, on 2 L of oxygen CVS:HS I +II, regular, no murmurs RESP: Clinically clear to auscultation GI: BS present and normal, nontender, no palpable organs EXT:No edema HUMAN RESOURCE ASSISTANT:Cranial nerves II-XII grossly intact, Neuro grossly intact, RUE/RLE 4/5 strength. ASSESSMENT: 1. Acute/subacute left MCA infarct, confirmed on MRI wish to cluster of small subacute infarcts in the MCA distribution territory, 2. Left internal carotid stenosis 3. Paroxysmal atrial fibrillation, off Eliquis for 2 years, on sotalol 4. History of GI bleed, unable to collaborate history, stable hemoglobin, no bleeding seen 5. Hypertension, lisinopril on hold 6. NIGEL secondary to dehydration, resolved 7. Type II DM, blood sugars are controlled 8. CAD status post CABG status post stents, on aspirin, statin, nitrates, sotalol 9. Recurrent syncope status post loop recorder placement 10. History of polysubstance abuse Patient was seen by mobile crisis in clinic. He signed out AGAINST MEDICAL ADVICE. - Physical Exam Vital Signs Temp Pulse Resp BP Pulse Ox 97.8 F 64 16 128/81 H 98 03/29/19 15:55 03/29/19 15:55 03/29/19 15:55 03/29/19 15:55 03/29/19 15:55 Oxygen Flow Rate (L/min) 2 Oxygen Delivery Method Nasal Cannula Weight: 76.929 kg Body Mass Index (BMI) 24.3 Finger Stick Blood Glucose 198 Intake and Output for Last 24 Hours 03/29/19 03/30/19 03/31/19 23:59 23:59 23:59 Intake Total 3131 / 3131 Output Total 1900 / 1900 Balance 1231 / 1231 Discharge Diet: Low fat/ Low Cholesterol, 2000 mg Sodium Diet Code Visit Inpatient E&M: 48142 Disch Hosp
== END 2019-03-29 18:36 | disposition left against medical advice (07) | DRG 45 ==
LOC: ED 13:09 → PCU 14:29
PROVIDERS: Admitting Provider Hospitalist; Emergency Provider Emergency Medicine; Visit Provider Internal Medicine
DX: I63.512 Cerebral infarction due to unspecified occlusion or stenosis of left middle cerebral artery (principal); R47.81 Slurred speech; G83.21 Monoplegia of upper limb affecting right dominant side; R20.2 Paresthesia of skin; N17.9 Acute kidney failure, unspecified; E87.6 Hypokalemia; I25.10 Atherosclerotic heart disease of native coronary artery without angina pectoris; E11.9 Type 2 diabetes mellitus without complications; E78.5 Hyperlipidemia, unspecified; I48.0 Paroxysmal atrial fibrillation; R29.702 NIHSS score 2; F15.90 Other stimulant use, unspecified, uncomplicated; F12.90 Cannabis use, unspecified, uncomplicated; Z95.1 Presence of aortocoronary bypass graft; Z79.84 Long term (current) use of oral hypoglycemic drugs; Z95.5 Presence of coronary angioplasty implant and graft; F17.210 Nicotine dependence, cigarettes, uncomplicated; I10 Essential (primary) hypertension; F32.9 Major depressive disorder, single episode, unspecified; Z87.19 Personal history of other diseases of the digestive system
CPT/HCPCS: 36415; 70450; 70498; 70551; 71045; 80048; 80061; 82962; 83036; 84443; 84484; 85025; 85610; 85730; 92523; 92610; 93005; 93306; 93880; 99284; 99406; J7030; Q9957; Q9967; A4216; C8929

== ENCOUNTER 2019-04-14 14:58 | Emergency (ER) | payer MEDICAID, SELFPAY ==
[2019-04-06 10:11] VITALS: BMI 25.1
[2019-04-14 15:02] VITALS: BP 104/68; PULSE 94; RESP 18; TEMP 36.5; O2SAT 15; BMI 28.3
--- NOTE | 2019-04-14 15:28 | NURSING ---
CALLING [facility] TRANSFER LINE FOR DR PATTEN
[2019-04-14] MEDS: 0.9% Normal Saline 1,000 ML 150 ML IV (15:30)
[2019-04-14] MEDS: Ondansetron 4 MG/2 ML Vial IV (15:30)
[2019-04-14] MEDS: Morphine 4 MG/ML Syringe IV (15:30)
--- NOTE | 2019-04-14 15:44 | ED.VISSUMM ---
- ER Visit Summary Date of Service: 04/14/19 Chief Complaint: [Pain to bilateral legs] History of Present Illness: The patient is a 53 M [presents the emergency department pain in both legs that started several weeks ago. Patient states that he is having a hard time walking secondary to loss of sensation in his left leg specifically as well as pain in the left leg and at times the leg gives out. Patient states he has fallen. Patient saw his primary care physician who ordered outpatient vascular studies which were performed today and was brought over from ultrasound given the severe disease found especially to the left leg where he had no pulse and the left foot dorsal pedal or posterior tib. Patient does have significant history of prior coronary artery disease with three-vessel CABG about 20 years ago and squint cardiac stents. Patient has history of A. fib that required cardioversion and he is currently on sotalol but is not anticoagulated as approximately 1 year ago he had a severe GI bleed. Patient states that he was worked up with a GI bleed including colonoscopy and EGD and no etiology was ever found. Patient's had intermittent blood in his stool. Patient also chronically on 4 L nasal cannula O2 for history of COPD. Patient has diabetes and hypertension. Patient continues to smoke.] Physical Examination: [HEENT-PERRLA, EOMI. Cranial nerves II through XII grossly intact. TMs clear. Mucous membranes moist. No adenopathy. Cardiovascular-regular rate and rhythm without murmur or ectopy Lungs-clear to auscultation, chest wall stable without crepitus or subcu emphysema Abdomen-normoactive bowel sounds, soft, nontender, no rebound or rigidity, no peritoneal signs. Extremities-intact ?4, normal range of motion, atraumatic.] Left leg-patient has decreased cap refill 5 seconds to the left foot. Patient does not have hair on his toes. The foot is warm and pink. Patient has capillary refill of 2 seconds on the right foot however I cannot palpate posterior tibial or dorsal pedal pulses here either. Test Results: [CBC and chemistries pending. PT and INR pending.] Emergency Department Course and Treatment: [Patient was started on heparin drip. Case was discussed with [facility] at the patient's request as I feel he will require evaluation by vascular surgery. Patient was accepted by the hospitalist there .] Treatment Plan: [Heparin drip and evaluation by vascular surgery at [facility].] Disposition: [Transfer to [facility]] Impression: [Severe peripheral vascular disease] This note was generated with [employer] dictation software. It may contain incorrect words, spelling, and punctuation that were not noted in review of the chart prior to signing ED Disposition - Plan for ED Patient: Referrals: Blaze Louis MD [Primary Care Provider] -
[2019-04-14 15:45] LABS: Anion Gap 5 (5-15); BUN 14 mg/dL (7-18); BUN/Creat Ratio 14.4 RATIO (10-20); Calcium,Total 9.4 mg/dL (8.5-10.1); Chloride 106 mmol/L (98-107); Creatinine, Serum 0.97 mg/dL (0.70-1.30); EST Glomerular Filtration Rate 86 mL/min (>60); Est Glom Filt Rate - Afr Amer 103 mL/min (>60); Estimated Creatinine Clearance 79.48 ml/min; Glucose 128 mg/dL (74-106); Potassium 3.8 mmol/L (3.5-5.1); Sodium Level 141 mmol/L (136-145)
--- NOTE | 2019-04-14 15:45 | CASEMGMT ---
According to patient insurance [employer] Community [employer] [place], In [facility]: [facility], [place], [place], , [facility], [employer], [facility], [place], [place]. Yosef Garcia RNCM
--- NOTE | 2019-04-14 15:48 | ED.DCSUM_ITS ---
- ER Visit Summary Date of Service: 04/14/19 Chief Complaint: [Pain to bilateral legs] History of Present Illness: The patient is a 53 M [presents the emergency department pain in both legs that started several weeks ago. Patient states that he is having a hard time walking secondary to loss of sensation in his left leg specifically as well as pain in the left leg and at times the leg gives out. Patient states he has fallen. Patient saw his primary care physician who ordered outpatient vascular studies which were performed today and was brought over from ultrasound given the severe disease found especially to the left leg where he had no pulse and the left foot dorsal pedal or posterior tib. Patient does have significant history of prior coronary artery disease with three-vessel CABG about 20 years ago and squint cardiac stents. Patient has history of A. fib that required cardioversion and he is currently on sotalol but is not anticoagulated as approximately 1 year ago he had a severe GI bleed. Patient states that he was worked up with a GI bleed including colonoscopy and EGD and no etiology was ever found. Patient's had intermittent blood in his stool. Patient also chronically on 4 L nasal cannula O2 for history of COPD. Patient has diabetes and hypertension. Patient continues to smoke.] Physical Examination: [HEENT-PERRLA, EOMI. Cranial nerves II through XII grossly intact. TMs clear. Mucous membranes moist. No adenopathy. Cardiovascular-regular rate and rhythm without murmur or ectopy Lungs-clear to auscultation, chest wall stable without crepitus or subcu emphysema Abdomen-normoactive bowel sounds, soft, nontender, no rebound or rigidity, no peritoneal signs. Extremities-intact ?4, normal range of motion, atraumatic.] Left leg-patient has decreased cap refill 5 seconds to the left foot. Patient does not have hair on his toes. The foot is warm and pink. Patient has capillary refill of 2 seconds on the right foot however I cannot palpate posterior tibial or dorsal pedal pulses here either. Test Results: [CBC and chemistries pending. PT and INR pending.] Emergency Department Course and Treatment: [Patient was started on heparin drip. Case was discussed with [facility] at the patient's request as I feel he will require evaluation by vascular surgery. Patient was accepted by the hospitalist there .] Treatment Plan: [Heparin drip and evaluation by vascular surgery at [facility].] Disposition: [Transfer to [facility]] Impression: [Severe peripheral vascular disease] This note was generated with [employer] dictation software. It may contain incorrect words, spelling, and punctuation that were not noted in review of the chart prior to signing ED Disposition - Plan for ED Patient: Referrals: Blaze Louis MD [Primary Care Provider] -
[2019-04-14 16:00] LABS: Absolute Lymphocyte Count 2.37 X10^3/ul (0.83-4.51); Absolute Neutrophil Count 6.7 X10^3/uL (2.0-7.7); Basophil# 0.04 X10^3/uL; Basophil% 0.4 % (0-1); Eosinophil# 0.41 X10^3/uL; Eosinophils% 3.9 % (0-5); Hematocrit 43.3 % (40-54); Lymphocyte # 2.37 X10^3/ul (4.0); Lymphocyte % 22.8 % (19-41); Mean Corp Hgb Conc 32.3 g/gl (32-36); Mean Corpuscular Hgb 31.5 pg (27.0-32.0); Mean Corpuscular Volume 97.3 fL (80-94); Monocyte# 0.85 X10^3/uL; Monocyte% 8.2 % (0-10); Neutrophil # 6.69 X10^3/uL (2.7-7.7); Neutrophil % 64.4 % (47-70); Platelet Count 225 K/mm3 (150-450); RBC Distribution Width CV 17.4 % (11.6-14.6); RBC Distribution Width SD 60.2 fl (35.1-43.9); Red Blood Count 4.45 M/mm3 (4.6-6.2); White Blood Count 10.4 K/mm3 (4.4-11.0)
[2019-04-14 16:01] LABS: Prothrombin Time (Protime)PT. 13.3 SECONDS (11.7-14.9)
[2019-04-14 16:02] LABS: Partial Thromboplast Time 29.6 Seconds (24.1-36.2)
[2019-04-14 16:08] LABS: POSITIVE COUNT NO; POSITIVE DIFFERENTIAL NO; POSITIVE MORPHOLOGY NO
[2019-04-14] MEDS: Heparin Injection (Vial) 5,000 UNIT/ML VIAL 5000 UNIT IV (16:30)
[2019-04-14] MEDS: HEPARIN/D5w 25,000 UNITS 25,000 UNITS/250 ML IV.SOLN. 11 UNITS IV (16:31)
--- NOTE | 2019-04-14 16:43 | NURSING ---
CALLED [facility] FOR TRANSPORT. ETA IS FROM [facility]
[2019-04-14 17:00] VITALS: BP 130/58
[2019-04-14 17:04] VITALS: BP 130/58; PULSE 88
== END 2019-04-14 17:07 | disposition short-term general hospital (02) ==
PROVIDERS: Emergency Provider Emergency Medicine; Family Provider Family Medicine; PCP Family Medicine
DX: E11.51 Type 2 diabetes mellitus with diabetic peripheral angiopathy without gangrene (principal); I73.9 Peripheral vascular disease, unspecified; I25.10 Atherosclerotic heart disease of native coronary artery without angina pectoris; E78.00 Pure hypercholesterolemia, unspecified; J44.9 Chronic obstructive pulmonary disease, unspecified; Z99.81 Dependence on supplemental oxygen; Z86.73 Personal history of transient ischemic attack (TIA), and cerebral infarction without residual deficits; Z95.1 Presence of aortocoronary bypass graft; Z95.5 Presence of coronary angioplasty implant and graft; Z72.0 Tobacco use; Z79.84 Long term (current) use of oral hypoglycemic drugs; Z79.899 Other long term (current) drug therapy
CPT/HCPCS: 80048; 85025; 85610; 85730; 93922; 96365; 96375; 96376; 99284; J7030; A4216; J2405

== ENCOUNTER → 2019-04-14 | Outpatient (CLI) | payer MEDICAID, SELFPAY ==
[2019-04-06 10:11] VITALS: BMI 25.1
--- NOTE | 2019-04-14 13:53 | ART_ITS ---
Reason For Study: DECREASED PEDAL PULSES Procedure A bilateral lower extremity continuous wave Doppler with analog waveform analysis and ankle brachial indexes. Dr Louis's office contacted with critical results- Pt advised to go to ER. Left Segmental Pressures Left brachial= 96mmHg. Left DPA and [employer] are absent. Right Segmental Pressures The right dorsalis pedis waveforms are monophasic. The right posterior tibial artery waveforms are monophasic. Right posterior tibial artery = 19mmHg. Right dorsalis pedis artery = 46mmHg. Right brachial= 101mmHg. Indices The right ankle brachial index by the posterior tibial artery is .19. The right ankle brachial index by the dorsalis pedis is .46. Interpretation Summary Abnormal bilateral lower extremity limited arterial exam with right DP and PT indices of 0.46 and 0.19; monophasic waveforms consistent with severe ischemia. Left lower extremity ABIs are not obtainable, no flow identified Ordering Physician: Blaze Louis Referring Physician: Blaze Louis Performed By: Dahiana Suero, KEVEN, RVT
== END | disposition home or self-care (01) ==
LOC: CVS 13:50
PROVIDERS: Family Provider Family Medicine; PCP Family Medicine; Referring Provider Family Medicine; Visit Provider Family Medicine
DX: R09.89 Other specified symptoms and signs involving the circulatory and respiratory systems (principal)
CPT/HCPCS: 93922

== ENCOUNTER → 2019-04-27 | Outpatient (CLI) | payer MEDICAID, SELFPAY ==
[2019-04-14 15:02] VITALS: BMI 28.3
[2019-04-27 12:10] LABS: Mucous, Urine 0 SEEN /hpf (<or=2+); Red Blood Cells-Urine 0 SEEN /hpf (0-5)
[2019-04-27 14:21] LABS: Absolute Lymphocyte Count 2.01 X10^3/ul (0.83-4.51); Absolute Neutrophil Count 6.4 X10^3/uL (2.0-7.7); Basophil# 0.05 X10^3/uL; Basophil% 0.5 % (0-1); Eosinophil# 0.26 X10^3/uL; Eosinophils% 2.7 % (0-5); Hematocrit 42.4 % (40-54); Hemoglobin 13.6 g/dl (13.0-16.5); Lymphocyte # 2.01 X10^3/ul (4.0); Lymphocyte % 20.7 % (19-41); Mean Corp Hgb Conc 32.1 g/gl (32-36); Mean Corpuscular Volume 99.8 fL (80-94); Mean Platelet Vol. 10.5 fl (6.2-12.0); Monocyte# 0.92 X10^3/uL; Monocyte% 9.5 % (0-10); Neutrophil # 6.43 X10^3/uL (2.7-7.7); Neutrophil % 66.4 % (47-70); Platelet Count 238 K/mm3 (150-450); RBC Distribution Width CV 16.9 % (11.6-14.6); RBC Distribution Width SD 61.2 fl (35.1-43.9); Red Blood Count 4.25 M/mm3 (4.6-6.2); White Blood Count 9.7 K/mm3 (4.4-11.0)
[2019-04-27 14:22] LABS: POSITIVE COUNT NO; POSITIVE DIFFERENTIAL NO; POSITIVE MORPHOLOGY NO
[2019-04-27 14:23] LABS: Color, Urine Yellow (Yellow); Glucose, Dipstick 1000 mg/dl (Normal); Ketone-Dipstick Negative (Negative); Leukocyte Esterase-Dipstick 25 /ul (Negative); Nitrite-Dipstick Negative (Negative); Occult Blood-Urine Negative /ul (Negative); Protein-Dipstick Negative (Negative); Specific Gravity, Urine 1.015 (1.002-1.030); Urine Bilirubin Dipstick Negative (Negative); Urine Clarity Sl. Cloudy (Clear); Urine Urobilinogen 4 mg/dl (Normal); Urine pH 6.5 (5.0 - 8.0)
[2019-04-27 14:37] LABS: Bacteria 1+ /hpf (None Seen); Squamous Epithelial Cells - UA 0-5 SEEN /hpf (0-5); White Blood Cells 0-5 SEEN /hpf (0-5)
[2019-04-27 14:39] LABS: Hemoglobin A1c 5.8 % (4.2-6.3)
[2019-04-27 14:41] LABS: Vitamin B12 945 pg/mL (211-911); Vitamin D,25 Hydroxy 60.3 ng/mL (29.95-100.01)
[2019-04-27 14:46] LABS: ALB/GLOB Ratio 0.8 RATIO (0.9-2.4); AST(SGOT) 17 U/L (15-37); Alanine Aminotransfer ALT/SGPT 28 U/L (16-61); Albumin, Serum 3.2 g/dL (3.2-5.0); Alkaline Phosphatase 107 U/L (45-117); Anion Gap 8 (5-15); BUN 11 mg/dL (7-18); BUN/Creat Ratio 10.1 RATIO (10-20); Calcium,Total 9.5 mg/dL (8.5-10.1); Chloride 107 mmol/L (98-107); Cholesterol 102 mg/dL (200); Creatinine, Serum 1.09 mg/dL (0.70-1.30); EST Glomerular Filtration Rate 75 mL/min (>60); Est Glom Filt Rate - Afr Amer 91 mL/min (>60); Ferritin 38 ng/mL (26-388); Globulin 4.2 g/dL (2.2-4.2); Glucose 140 mg/dL (74-106); High Density Lipoprotein 36 mg/dL; Iron 50 ug/dL (65-175); Iron Binding Capacity,Total 320 ug/dL (250-450); PERCENT IRON SATURATION 15.6 % (15.0-55.0); Potassium 3.9 mmol/L (3.5-5.1); Protein, Total 7.4 g/dL (6.4-8.2); Sodium Level 142 mmol/L (136-145); Thyroid Stim Hormone (TSH) 1.91 uIU/mL (0.358-3.74); Triglycerides 104 mg/dL; Very Low Density Lipoprotein 21 mg/dL (5-40)
[2019-05-03 09:32] LABS: Vitamin B1, Thiamine 155.2 nmol/L (66.5-200.0)
== END | disposition home or self-care (01) ==
LOC: MFPLAB 12:07
PROVIDERS: Family Provider Family Medicine; PCP Family Medicine; Referring Provider Family Medicine; Visit Provider Family Medicine
DX: I10 Essential (primary) hypertension (principal); E78.5 Hyperlipidemia, unspecified; E11.9 Type 2 diabetes mellitus without complications; G62.9 Polyneuropathy, unspecified; E55.9 Vitamin D deficiency, unspecified; E61.1 Iron deficiency
CPT/HCPCS: 36415; 80053; 80061; 81001; 82043; 82306; 82570; 82607; 82728; 83036; 83540; 83550; 84425; 84443; 85025

== ENCOUNTER 2019-05-25 19:48 | Emergency (ER) | payer MEDICAID, SELFPAY ==
[2019-05-25 19:50] VITALS: BP 82/53; PULSE 71; RESP 12; TEMP 36.6; O2SAT 95; BMI 25.9
[2019-05-25] MEDS: 0.9% Normal Saline 1,000 ML 999 ML IV ×2 (20:00→20:35)
[2019-05-25 20:01] LABS: Bedside Glucose 148 mg/dL (70-110)
--- NOTE | 2019-05-25 20:04 | EKG12_ITS ---
Test Reason : Blood Pressure : / mmHG Vent. Rate : 068 BPM Atrial Rate : 270 BPM P-R Int : 000 ms QRS Dur : 086 ms QT Int : 462 ms P-R-T Axes : 100 049 103 degrees QTc Int : 491 ms Atrial flutter with variable A-V block Prolonged QT Abnormal ECG Confirmed by ZACH LOMELI, TED ([id number]), associate editor EDITH MENARD ([id number]) on 05/27/2019 10:49:12 AM Referred By: NADIRA Confirmed By:ALY SERRANO MD
--- NOTE | 2019-05-25 20:04 | CT_ITS ---
STUDY: CT BRAIN WITHOUT CONTRAST REASON FOR EXAM: Male, 53 years old. Altered mental status. Found down. History of recent CVA. RADIATION DOSAGE (If Supplied By Facility): CTDIvol = ( 44.99 ) mGy, DLP = ( 812.98 ) mGycm TECHNIQUE: Transaxial CT imaging of the brain was performed without administration of intravenous contrast material. Individualized dose optimization techniques were used for this CT. COMPARISON: March 28, 2019 FINDINGS: Normal soft tissue structures. Normal calvarium. There is air within the superior sagittal sinus. Normal size ventricles and extra-axial spaces for the patient's age. Normal white matter tracts of the cerebral hemispheres. Normal basal ganglia and thalami. Normal brainstem. Normal cerebellum. There is no intracranial hemorrhage. There are no findings of an acute ischemic infarction. Normal visualized paranasal sinuses. CT/Brain/Head without Contrast IMPRESSION: Intracranial air within the superior sagittal sinus, this may be posttraumatic or possibly idiopathic. Electronically Signed: Pao Watkins MD at 20:39 EDT Tel , Service support ,
--- NOTE | 2019-05-25 20:08 | CT_ITS ---
STUDY: CT CERVICAL SPINE WITHOUT CONTRAST REASON FOR EXAM: Male, 53 years old. Altered mental status. Found down. Recent CVA. RADIATION DOSAGE (If Supplied By Facility): CTDIvol = ( 21.27 ) mGy, DLP = ( 513.98 ) mGycm TECHNIQUE: High resolution transaxial imaging was performed without contrast material. Sagittal and coronal images were reconstructed. Individualized dose optimization techniques were used for this CT. COMPARISON: CT of the neck dated March 29, 2019 FINDINGS: Normal craniovertebral junction. There are degenerative changes of the anterior atlantoaxial articulation. Normal odontoid process. Normal cervical lordosis. The vertebral body heights are preserved. There is multilevel facet hypertrophy. C2-3: There is facet hypertrophy associated with narrowing of the left intervertebral neuroforamina. C3-4: There is a posterior disc osteophyte and facet hypertrophy associated with stenosis of the central canal and bilateral narrowing of the intervertebral neuroforamina. C4-5: There is a posterior disc osteophyte and facet hypertrophy associated with narrowing of the right intervertebral neuroforamina. C5-6: There is a posterior disc osteophyte associated with stenosis of the central canal. C6-7: There is a posterior disc osteophyte associated with stenosis of the central canal and narrowing of the right intervertebral neuroforamina. C7-T1: Normal endplates. Normal disc height and morphology. Normal central canal and intervertebral neuroforamina. There are peripheral calcifications of the carotid arteries. There are foci of extraluminal air posterior to the trachea right of midline within the thoracic inlet. 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 CT/Spine Cervical without Contras IMPRESSION: Multilevel degenerative changes, as described above. Atherosclerosis. Electronically Signed: Pao Watkins MD at 20:47 EDT Tel , Service support ,
[2019-05-25 20:14] VITALS: BP 87/56
--- NOTE | 2019-05-25 20:15 | RAD_ITS ---
STUDY: X-RAY CHEST REASON FOR EXAM: Male, 53 years old. Altered loss of consciousness. TECHNIQUE: Single frontal view of the chest. COMPARISON: March 28, 2019 FINDINGS: There is no new focal consolidation. Sternal cerclage wires and vascular clips are present from a prior sternotomy and coronary artery bypass graft procedure (CABG). The cardiac silhouette is within normal limits. There is a loop recorder Normal mediastinum and ranjit. Normal visualized pulmonary arteries. Normal visualized aortic arch and descending thoracic aorta. Normal visualized thoracic spine. Normal visualized ribs, clavicles, and shoulders. There is no demonstrated abnormality of the visualized soft tissue structures of the upper abdomen. RAD/Chest 1 View (Portable) IMPRESSION: No acute cardiopulmonary process. Electronically Signed: Pao Watkins MD at 20:48 EDT Tel , Service support ,
[2019-05-25 20:18] LABS: Absolute Lymphocyte Count 2.09 X10^3/ul (0.83-4.51); Absolute Neutrophil Count 8.9 X10^3/uL (2.0-7.7); Basophil# 0.08 X10^3/uL; Basophil% 0.6 % (0-1); Eosinophil# 0.37 X10^3/uL; Hemoglobin 12.5 g/dl (13.0-16.5); Lymphocyte # 2.09 X10^3/ul (4.0); Lymphocyte % 16.9 % (19-41); Mean Corp Hgb Conc 32.1 g/gl (32-36); Mean Corpuscular Hgb 31.7 pg (27.0-32.0); Mean Platelet Vol. 10.3 fl (6.2-12.0); Monocyte# 0.97 X10^3/uL; Monocyte% 7.8 % (0-10); Neutrophil # 8.85 X10^3/uL (2.7-7.7); Neutrophil % 71.5 % (47-70); Platelet Count 235 K/mm3 (150-450); RBC Distribution Width CV 14.4 % (11.6-14.6); RBC Distribution Width SD 52.2 fl (35.1-43.9); Red Blood Count 3.94 M/mm3 (4.6-6.2); White Blood Count 12.4 K/mm3 (4.4-11.0)
[2019-05-25 20:19] LABS: POSITIVE COUNT NO; POSITIVE DIFFERENTIAL NO; POSITIVE MORPHOLOGY NO
[2019-05-25 20:27] LABS: International Normalized Ratio 1.2; Partial Thromboplast Time 27.3 Seconds (24.1-36.2); Prothrombin Time (Protime)PT. 14.9 SECONDS (11.7-14.9)
[2019-05-25 20:32] LABS: ALB/GLOB Ratio 1.2 RATIO (0.9-2.4); AST(SGOT) 23 U/L (15-37); Alanine Aminotransfer ALT/SGPT 28 U/L (16-61); Albumin, Serum 3.7 g/dL (3.2-5.0); Alkaline Phosphatase 82 U/L (45-117); Anion Gap 5 (5-15); BUN 19 mg/dL (7-18); BUN/Creat Ratio 14.5 RATIO (10-20); CPK Total, Creatine Kinase 411 U/L (39-308); Calcium,Total 9.2 mg/dL (8.5-10.1); Chloride 109 mmol/L (98-107); Creatinine, Serum 1.31 mg/dL (0.70-1.30); EST Glomerular Filtration Rate 61 mL/min (>60); Est Glom Filt Rate - Afr Amer 73 mL/min (>60); Estimated Creatinine Clearance 67.33 ml/min; Glucose 156 mg/dL (74-106); Potassium 3.8 mmol/L (3.5-5.1); Protein, Total 6.7 g/dL (6.4-8.2); Sodium Level 141 mmol/L (136-145)
[2019-05-25 20:35] VITALS: TEMP 36.6
[2019-05-25 21:00] LABS: Lactic Acid 1.3 mmol/L (0.4-2.0)
[2019-05-25 21:07] VITALS: BP 95/65; PULSE 64; RESP 16; O2SAT 97
[2019-05-25 21:08] LABS: Bacteria 0 SEEN /hpf (None Seen); Mucous, Urine 0 SEEN /hpf (<or=2+); Red Blood Cells-Urine 0 SEEN /hpf (0-5)
[2019-05-25 21:12] LABS: Color, Urine Yellow (Yellow); Glucose, Dipstick 1000 mg/dl (Normal); Ketone-Dipstick Negative (Negative); Leukocyte Esterase-Dipstick 100 /ul (Negative); Nitrite-Dipstick Negative (Negative); Occult Blood-Urine Negative /ul (Negative); Protein-Dipstick Negative (Negative); Specific Gravity, Urine 1.015 (1.002-1.030); Urine Bilirubin Dipstick Negative (Negative); Urine Clarity Clear (Clear); Urine Urobilinogen Normal (Normal)
[2019-05-25 21:35] LABS: Amphetamine Urine VISTA NEGATIVE (<1000 ng/mL); Barbiturate Urine VISTA NEGATIVE (< 200 ng/mL); Benzodiazepine Urine VISTA NEGATIVE (< 200 ng/mL); Cocaine Urine VISTA NEGATIVE (< 300 ng/mL); Ecstacy Urine VISTA NEGATIVE (< 500 ng/mL); Methadone Urine VISTA NEGATIVE (< 300 ng/mL); PCP Urine VISTA NEGATIVE (< 25 ng/mL); THC Urine VISTA POSITIVE (< 50 ng/mL); Vista UDS pH Range 5
--- NOTE | 2019-05-25 21:38 | ED.DCSUM_ITS ---
- ER Visit Summary Date of Service: 05/25/19 Chief Complaint: Found down History of Present Illness: The patient is a 53 M who was apparently found down and brought to the emergency department by EMS. It sounds like he had been out in the heat all day. EMS found him to be lethargic. His blood sugar was n ormal. Patient does not recall what had happened. He is unsure if he fell or not. He is unsure why he was brought to the hospital. He has a history of A. fib and a flutter. He says he is on Plavix but no other blood thinners. History of stroke with residual right-sided weakness. History of diabetes, hypertension, hyperlipidemia, MS, and COPD. Home oxygen 3 L. Patient was also recently incarcerated, but would not tell me why. He denies drug use or alcohol use today. Physical Examination: Blood pressure 82/53. Otherwise vitals unremarkable. Heart rate 71 and temperature normal. 95% on nasal cannula. Head and neck show what appear to be old ecchymosis to his face and a Band-Aid over his left face. No definite acute trauma. Neck is nontender. Heart regular. Lungs clear. Abdomen soft and nontender. Extremities nontender and atraumatic. Cranial nerves grossly intact. Normal strength and sensation. He is oriented x3, but exhibits depressed mood and psychomotor slowing. Test Results: EKG showed a flutter at a rate of 68. White count 12.4 and hemoglobin 12.5. Glucose 156, BUN 19, creatinine 1.31. Coags normal. Urinalysis pending. Troponin normal. CPK 411 and lactate normal. Alcohol negative. Tox screen positive for THC only. Chest x-ray showed nothing acute. CT brain showed air in the superior sagittal sinus which may be posttraumatic. CT cervical spine showed degenerative changes only. Emergency Department Course and Treatment: Patient was treated with IV fluids. He was placed on oxygen and a monitor. His blood pressures remained borderline in the upper 90s but his other vital signs were unremarkable. His blood sugar here was normal. He seemed to be more more responsive. I am concerned given his confusion and amnesia. I am concerned that he may have possibly fallen. He says he falls all the time. Given that he may have traumatic pneumocephalus, I did contact a trauma center for transfer. Dr. Roberts accepted the patient at [facility]. Treatment Plan: As above Disposition: Transfer to [place] [facility] Impression: Altered mental status Pneumocephalus This note was generated with [employer] dictation software. It may contain incorrect words, spelling, and punctuation that were not noted in review of the chart prior to signing ED Disposition - Plan for ED Patient: Referrals: Blaze Louis MD [Primary Care Provider] -
[2019-05-25 21:42] VITALS: BP 103/61; PULSE 71; RESP 16; O2SAT 96
[2019-05-25 21:44] LABS: Squamous Epithelial Cells - UA 0-5 SEEN /hpf (0-5); White Blood Cells 5-10 SEEN /hpf (0-5)
== END 2019-05-25 22:07 | disposition short-term general hospital (02) ==
LOC: ED 21:25
PROVIDERS: Emergency Provider Emergency Medicine; Family Provider Family Medicine; PCP Family Medicine
DX: R41.82 Altered mental status, unspecified (principal); G93.89 Other specified disorders of brain; I10 Essential (primary) hypertension; E11.9 Type 2 diabetes mellitus without complications; E78.5 Hyperlipidemia, unspecified; J44.9 Chronic obstructive pulmonary disease, unspecified; I48.91 Unspecified atrial fibrillation; I48.92 Unspecified atrial flutter; I25.2 Old myocardial infarction; I63.9 Cerebral infarction, unspecified; I69.351 Hemiplegia and hemiparesis following cerebral infarction affecting right dominant side; Z79.02 Long term (current) use of antithrombotics/antiplatelets; Z79.84 Long term (current) use of oral hypoglycemic drugs; Z79.899 Other long term (current) drug therapy
CPT/HCPCS: 70450; 71045; 72125; 80053; 80307; 80320; 81001; 82550; 82962; 83605; 84484; 85025; 85610; 85730; 93005; 96360; 99285; J7030; A4216; G0480

== ENCOUNTER 2019-07-06 11:37 | Emergency (ER) | payer MEDICAID, SELFPAY ==
[2019-07-06 11:37] VITALS: BP 123/60; PULSE 79; RESP 18; TEMP 36.6; O2SAT 97; BMI 25.1
--- NOTE | 2019-07-06 12:00 | ED.VISSUMM ---
- ER Visit Summary Date of Service: 07/06/19 Chief Complaint: Rash that itches History of Present Illness: The patient is a 53 M who developed a rash. He states that it itches. Denies ever having this before. Symptoms been ongoing for the last 2 weeks. Said he has been scratching it quite a bit. He denies any swelling of his lips or tongue. He denies any current antibiotics but he does not know what medications he is currently on. He denies any fever or vomiting or diarrhea. Physical Examination: Middle-aged male. Vital signs are stable. He is afebrile. He does not look septic or toxic. He is in no distress. Speech EENT exam unremarkable except he does have a red rash that on his forehead and scalp. Also on his back that is slightly raised. There is no vesicles or pustules. No rash is also on his extremities. Some areas are excoriated where he is scratched it. There are no secondary infections. No cellulitis. Lungs clear to auscultation. Heart regular rhythm. Abdomen soft nontender. Patient moving all 4 extremities. Calves nontender without edema. Neurologically is awake and alert. Patient skin other than no rash has multiple tattoos. Test Results: None Emergency Department Course and Treatment: Prednisone first dose given the ER for this rash which clinically and historically appears to be allergic reaction. Treatment Plan: 140 times a day for 5 days. Follow-up if not improving. Return if a lot worse. Disposition: Discharge Impression: Acute rash secondary to acute allergic reaction of uncertain etiology This note was generated with [employer] dictation software. It may contain incorrect words, spelling, and punctuation that were not noted in review of the chart prior to signing ED Disposition - Plan for ED Patient: Referrals: Blaze Louis MD [Primary Care Provider] -
[2019-07-06] MEDS: predniSONE 20 MG Tablet 40 MG PO (12:03)
--- NOTE | 2019-07-06 12:04 | ED.DEP ---
ED Disposition - Plan for ED Patient: Disposition: Home or Assisted Living Instructions: ALLERGIC REACTION, Other (General) Prescriptions: predniSONE tablet 40 mg PO DAILY 5 Days tab Prescription Printed Referrals: Blaze Louis MD [Primary Care Provider] - 1 Week if not improving Additional Instructions: Prednisone daily starting tomorrow and then should resolve your rash that is secondary to an allergic reaction.
== END 2019-07-06 12:15 | disposition home or self-care (01) ==
PROVIDERS: Emergency Provider Emergency Medicine; Family Provider Family Medicine; PCP Family Medicine
DX: T78.40XA Allergy, unspecified, initial encounter (principal); X58.XXXA Exposure to other specified factors, initial encounter; I25.10 Atherosclerotic heart disease of native coronary artery without angina pectoris; I50.9 Heart failure, unspecified; I25.2 Old myocardial infarction; E11.9 Type 2 diabetes mellitus without complications; J44.9 Chronic obstructive pulmonary disease, unspecified; Z95.1 Presence of aortocoronary bypass graft; Z95.5 Presence of coronary angioplasty implant and graft; Z79.84 Long term (current) use of oral hypoglycemic drugs; Z79.899 Other long term (current) drug therapy; Z72.0 Tobacco use
CPT/HCPCS: 99283

== ENCOUNTER → 2019-10-25 08:25 | Outpatient (CLI) | payer MEDICAID, SELFPAY ==
[2019-10-25 10:19] LABS: Absolute Lymphocyte Count 2.13 X10^3/uL (0.83-4.51); Absolute Neutrophil Count 5.1 X10^3/uL (2.0-7.7); Basophil# 0.03 X10^3/uL; Basophil% 0.4 % (0-1); Eosinophil# 0.28 X10^3/uL; Eosinophils% 3.3 % (0-5); Hematocrit 43.1 % (40-54); Hemoglobin 13.4 g/dL (13.0-16.5); Lymphocyte # 2.13 X10^3/ul (4.0); Lymphocyte % 25.5 % (19-41); Mean Corp Hgb Conc 31.1 g/dL (32-36); Mean Corpuscular Hgb 28.9 pg (27.0-32.0); Mean Corpuscular Volume 92.9 fL (80-94); Mean Platelet Vol. 10.3 fl (6.2-12.0); Monocyte# 0.79 X10^3/uL; Monocyte% 9.4 % (0-10); NRBC Flagged by Analyzer 0 % (0-5); Neutrophil # 5.11 X10^3/uL (2.7-7.7); Neutrophil % 61.2 % (47-70); Platelet Count 210 K/mm3 (150-450); RBC Distribution Width CV 15.6 % (11.6-14.6); RBC Distribution Width SD 52.7 fl (35.1-43.9); Red Blood Count 4.64 M/mm3 (4.6-6.2); White Blood Count 8.4 K/mm3 (4.4-11.0)
[2019-10-25 10:35] LABS: Hemoglobin A1c 5.7 % (4.2-6.3)
[2019-10-25 10:37] LABS: ALB/GLOB Ratio 1.2 RATIO (0.9-2.4); AST(SGOT) 18 U/L (15-37); Alanine Aminotransfer ALT/SGPT 26 U/L (16-61); Albumin, Serum 3.8 g/dL (3.2-5.0); Alkaline Phosphatase 87 U/L (45-117); Anion Gap 8 (5-15); BUN 11 mg/dL (7-18); BUN/Creat Ratio 13.2 RATIO (10-20); Calcium,Total 9.5 mg/dL (8.5-10.1); Chloride 110 mmol/L (98-107); Cholesterol 176 mg/dL (200); Creatinine, Serum 0.83 mg/dL (0.70-1.30); EST Glomerular Filtration Rate 102 mL/min (>60); Est Glom Filt Rate - Afr Amer 123 mL/min (>60); Ferritin 19 ng/mL (26-388); Globulin 3.3 g/dL (2.2-4.2); Glucose 116 mg/dL (74-106); High Density Lipoprotein 42 mg/dL; Iron 32 ug/dL (65-175); Iron Binding Capacity,Total 353 ug/dL (250-450); Magnesium 1.9 mg/dL (1.6-2.6); Potassium 3.6 mmol/L (3.5-5.1); Protein, Total 7.1 g/dL (6.4-8.2); Sodium Level 142 mmol/L (136-145); Triglycerides 109 mg/dL; Very Low Density Lipoprotein 22 mg/dL (5-40)
[2019-10-25 10:43] LABS: Vitamin B12 651 pg/mL (211-911); Vitamin D,25 Hydroxy 53.1 ng/mL (29.95-100.01)
== END ==
PROVIDERS: Family Provider Family Medicine; PCP Family Medicine; Referring Provider Family Medicine; Visit Provider Family Medicine
DX: E61.1 Iron deficiency (principal); I10 Essential (primary) hypertension; E11.9 Type 2 diabetes mellitus without complications; E78.5 Hyperlipidemia, unspecified; I48.91 Unspecified atrial fibrillation; E53.9 Vitamin B deficiency, unspecified; E55.9 Vitamin D deficiency, unspecified
CPT/HCPCS: 36415; 80053; 80061; 81001; 82043; 82306; 82570; 82607; 82728; 83036; 83540; 83550; 83735; 85025

== ENCOUNTER → 2019-10-25 17:40 | Outpatient (CLI) | payer MEDICAID, SELFPAY ==
[2019-10-26 17:44] LABS: Mucous, Urine 0 SEEN /hpf (<or=2+); Red Blood Cells-Urine 0 SEEN /hpf (0-5)
[2019-10-26 18:24] LABS: Color, Urine Yellow (Yellow); Glucose, Dipstick Normal (Normal); Ketone-Dipstick 5 mg/dl (Negative); Leukocyte Esterase-Dipstick 25 /ul (Negative); Nitrite-Dipstick Negative (Negative); Occult Blood-Urine Negative /ul (Negative); Protein-Dipstick 100 mg/dl (Negative); Urine Clarity Clear (Clear); Urine Urobilinogen 8 mg/dl (Normal)
[2019-10-26 18:26] LABS: Urine Bilirubin Dipstick 1 mg/dL (Negative)
[2019-10-26 18:38] LABS: Bacteria 2+ /hpf (None Seen); Hyaline Cast 0-5 SEEN /lpf (0-5); Squamous Epithelial Cells - UA 0-5 SEEN /hpf (0-5); White Blood Cells 10-25 SEEN /hpf (0-5)
[2019-10-26 19:23] LABS: Microalbumin:Creatinine Ratio 390.3 mg/g CRE (<30 mg/g CRE)
== END ==
PROVIDERS: Family Provider Family Medicine; PCP Family Medicine; Referring Provider Family Medicine; Visit Provider Family Medicine
DX: E11.9 Type 2 diabetes mellitus without complications (principal); E61.1 Iron deficiency; I10 Essential (primary) hypertension; E55.9 Vitamin D deficiency, unspecified; E53.9 Vitamin B deficiency, unspecified
CPT/HCPCS: 81001; 82043; 82570

== ENCOUNTER 2019-11-09 19:24 | Emergency (ER) | payer MEDICAID, SELFPAY ==
[2019-11-09 19:25] VITALS: BP 160/86; PULSE 134; RESP 18; TEMP 36.2; O2SAT 97; BMI 25.8
--- NOTE | 2019-11-09 20:01 | EKG12_ITS ---
Test Reason : LOWER EXT Blood Pressure : / mmHG Vent. Rate : 105 BPM Atrial Rate : 105 BPM P-R Int : 000 ms QRS Dur : 080 ms QT Int : 346 ms P-R-T Axes : 000 066 109 degrees QTc Int : 457 ms Atrial flutter with variable A-V block Abnormal ECG Confirmed by ZACH LOMELI, TED ([id number]), editor map CANDICE ZAZUETA ([id number]) on 11/16/2019 11:35:09 AM Referred By: DHRUV Confirmed By:ALY SERRANO MD
--- NOTE | 2019-11-09 20:05 | ED.VIS.GEN ---
History of Present Illness Chief Complaint: Lower Extremity Injury Detail of Chief Complaint: Bilateral leg pain Informant: Patient, Family Onset: Month(s) Context: Gradual Onset Current Severity: Severe Maximum Severity: Severe Narrative: Patient presents with complaint of bilateral leg pain. He has a history of arterial disease. He reports having a balloon dilation to 1 of the arteries in his left leg at [facility] earlier this year. He states he was told it may fail. He has had worsening bilateral leg pain for several months and states he came in tonight because he cannot take it anymore. Patient does have documented history of paroxysmal A. fib and flutter. He is not on anticoagulants stating that they had stopped his Eliquis after he developed a GI bleed. Nursing note documents patient has a doctor's appointment in November to be evaluated for these leg complaints, but patient states he is actually scheduled to see a english instructor for his lungs. He has not yet scheduled an appointment with his vascular surgeon. 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 [place] (6) Typical atrial flutter Status: Chronic Past Medical History - Allergies and Home Meds Allergies/Adverse Reactions: Allergies seasonal Allergy (Uncoded 11/09/19 19:27) SOB Primary Care Physician: Blaze Louis MD [Primary Care Provider] - Prior records reviewed: Yes Surgical History: coronary bypass surgery Lives: Spouse/ Significant Other Smoking Status: Current every day smoker - Family History Maternal Family History: Family History (Last Updated 03/05/18 @ 14:37 by Akil Ramos) Father CAD (coronary artery disease) COPD (chronic obstructive pulmonary disease) CHF (congestive heart failure) Mother COPD (chronic obstructive pulmonary disease) Family History: Reports: No pertinent history Paternal Family History: Family History (Last Updated 03/05/18 @ 14:37 by Akil Ramos) Father CAD (coronary artery disease) COPD (chronic obstructive pulmonary disease) CHF (congestive heart failure) Mother COPD (chronic obstructive pulmonary disease) Family History: Reports: No pertinent history Review of Systems General: Denies: Chills, Fever Eyes: Denies: Visual changes - bilaterally ENT: Denies: Bilateral ear pain Cardiovascular: Denies: Chest pain Respiratory: Denies: Dyspnea Gastrointestinal: Denies: Abdominal pain, Nausea, Vomiting, Diarrhea Musculoskeletal: Reports: Extremity Pain Skin: Denies: Rash Neurological: Denies: Headache Hematologic: Denies: Easy bruising Allergy: Denies: Uticaria Physical Exam Vital Signs/Narrative: Vital Signs Temp Pulse Resp BP Pulse Ox 11/09/19 19:25 97.2 F L 134 H 18 160/86 H 97 Inital Vital Signs reviewed: Yes General: Well nourished, Well developed Head: Normocephalic ENT: Moist mucous membranes Neck: Supple Cardiovascular: Irregular, Tachycardia Respiratory: No distress, CTA bilaterally Abdomen: Soft, Nontender Extremities: - - Minimal edema to the bilateral lower extremities. Feet and legs are warm to touch with good coloration. He does have palpable pulses in his feet. Skin: Normal color, No rash Neurological: Alert, Oriented x3 Psychological: Normal affect Diagnostic/Tx/Re-eval Impressions Venous Duplex 11/09/19 20:09 IMPRESSION: No DVT is identified. 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 Occlusion of the midportion of the right superficial femoral artery. Multiple tandem stenoses of the left superficial femoral artery without occlusion. Electronically Signed: Alberto Herrmann MD at 22:11 EST Tel , Service support , 11/09/19 21:18 CTA Abd w/Runoff W/WO Contrast [CT] Stat Laboratory Results 11/09/19 11/09/19 20:25 20:25 WBC 9.2 RBC 4.30 L Hgb 12.3 L Hct 39.9 L MCV 92.8 MCH 28.6 MCHC 30.8 L RDW Std Deviation 50.7 H RDW Coeff of Arleen 14.7 H Plt Count 273 MPV 9.8 Immature Gran % (Auto) 0.200 Neut % (Auto) 61.9 Lymph % (Auto) 23.4 [place] % (Auto) 11.3 H Eos % (Auto) 2.5 Baso % (Auto) 0.7 Absolute Neuts (auto) 5.7 Absolute Lymphs (auto) 2.16 Nucleated RBC % 0 Sodium 144 Potassium 3.7 Chloride 111 H Carbon Dioxide 27.0 Anion Gap 6 BUN 12 Creatinine 0.89 Estim Creat Clear Calc 97.97 Est GFR (MDRD) Af Amer 114 Est GFR (MDRD) Non-Af 94 BUN/Creatinine Ratio 13.4 Glucose 130 H Calcium 9.1 - EKG Initial EKG Interpretation: Atrial Flutter - A flutter with ventricular rate of 105. No acute ST change. - Medical Decision Making Patient was given Dilaudid and Zofran. I was able to review his prior records from [facility] through clinic sink. 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 It appears as though the patient was was to go back in April for another procedure but patient states he did not do that. He does not remember why he did not follow-up. At this time patient has good blood flow distally in his legs. 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 Patient states this increased leg pain actually started a few weeks after he had his procedure done in March. I advised him at this time there is no emergent need to anticoagulate him and transfer him. He was seen by Dr. Mcdonald previously who does come to [place]. Patient will be given the doctors information for follow-up. He will be given a short course of [place] for pain. ED Disposition - Plan for ED Patient: Disposition: Home or Assisted Living Diagnosis: Peripheral vascular disease Prescriptions: Hydrocodone Bitart/Apap 5-325 [[place] 5MG-325MG] 1 tablet PO Q6H PRN PRN 3 Days #10 tablet PRN Reason: Pain Referrals: Stephan Mcdonald MD [STAFF PHYSICIAN] - As soon as possible
--- NOTE | 2019-11-09 20:09 | US_ITS ---
STUDY: VENOUS DOPPLER ULTRASOUND - BILATERAL LOWER EXTREMITIES REASON FOR EXAM: Male, 54 years old. Bilateral leg pain TECHNIQUE: Ultrasound evaluation of the deep vein system to include catherine-scale imaging and compression was performed. Catherine-scale imaging and Doppler sonographic evaluation, including duplex spectral analysis and qualitative color flow sonography, was performed. COMPARISON: None. FINDINGS: No deep venous thrombosis is identified. All visualized veins demonstrate normal compressibility, augmentation and/or color flow. US/Venous Duplex Imag/[place]us Extrem IMPRESSION: No DVT is identified. Electronically Signed: Alberto Herrmann MD at 21:24 EST Tel , Service support ,
[2019-11-09] MEDS: 0.9% Normal Saline 1,000 ML 150 ML IV (20:28)
[2019-11-09] MEDS: HYDROmorphone 1 MG/ML Syringe 0.5 MG IV (20:28)
[2019-11-09] MEDS: Ondansetron 4 MG/2 ML Vial IV (20:29)
[2019-11-09 20:34] LABS: Absolute Lymphocyte Count 2.16 X10^3/uL (0.83-4.51); Absolute Neutrophil Count 5.7 X10^3/uL (2.0-7.7); Basophil# 0.06 X10^3/uL; Basophil% 0.7 % (0-1); Eosinophil# 0.23 X10^3/uL; Eosinophils% 2.5 % (0-5); Hematocrit 39.9 % (40-54); Hemoglobin 12.3 g/dL (13.0-16.5); Lymphocyte # 2.16 X10^3/ul (4.0); Lymphocyte % 23.4 % (19-41); Mean Corp Hgb Conc 30.8 g/dL (32-36); Mean Corpuscular Hgb 28.6 pg (27.0-32.0); Mean Corpuscular Volume 92.8 fL (80-94); Mean Platelet Vol. 9.8 fl (6.2-12.0); Monocyte# 1.04 X10^3/uL; Monocyte% 11.3 % (0-10); NRBC Flagged by Analyzer 0 % (0-5); Neutrophil # 5.72 X10^3/uL (2.7-7.7); Neutrophil % 61.9 % (47-70); Platelet Count 273 K/mm3 (150-450); RBC Distribution Width CV 14.7 % (11.6-14.6); RBC Distribution Width SD 50.7 fl (35.1-43.9); White Blood Count 9.2 K/mm3 (4.4-11.0)
[2019-11-09 20:48] LABS: Anion Gap 6 (5-15); BUN 12 mg/dL (7-18); BUN/Creat Ratio 13.4 RATIO (10-20); Calcium,Total 9.1 mg/dL (8.5-10.1); Chloride 111 mmol/L (98-107); Creatinine, Serum 0.89 mg/dL (0.70-1.30); EST Glomerular Filtration Rate 94 mL/min (>60); Est Glom Filt Rate - Afr Amer 114 mL/min (>60); Estimated Creatinine Clearance 97.97 ml/min; Glucose 130 mg/dL (74-106); Potassium 3.7 mmol/L (3.5-5.1); Sodium Level 144 mmol/L (136-145)
--- NOTE | 2019-11-09 21:18 | CT_ITS ---
STUDY: CTA OF THE ABDOMINAL AORTA AND BILATERAL LOWER EXTREMITIES REASON FOR EXAM: Male, 54 years old. BILATERAL LEG PAIN,RT WORSE THAN LT RADIATION DOSAGE (If Supplied By Facility): CTDIvol = ( 8.41 ) mGy, DLP = ( 1234.48 ) mGycm TECHNIQUE: Axial CT angiography multi-detector data acquisition was obtained from the lower chest to the feet following intravenous administration of IV 100mL Isovue-370. Axial images and MIP images were reconstructed from the axial data set. Post-processing of the angiographic images was performed, with multiplanar reformation and 3D reconstruction. Individualized dose optimization techniques were used for this CT. TECHNICAL QUALITY: Good COMPARISON: None. FINDINGS: Scattered calcified arterial plaque throughout the abdomen, pelvis, and lower extremities. Otherwise: Abdominal aorta: No demonstrated narrowing. Celiac and superior mesenteric arteries: No demonstrated narrowing. Inferior mesenteric artery: No demonstrated narrowing. Right renal artery(arteries): No demonstrated narrowing. Left renal artery(arteries): No demonstrated narrowing. Right common iliac artery: No demonstrated narrowing. Right external iliac artery: No demonstrated narrowing. Right internal iliac artery: Occluded Left common iliac artery: No demonstrated narrowing. Left external iliac artery: No demonstrated narrowing. Left internal iliac artery: Occluded RIGHT LOWER EXTREMITY Right common femoral artery: No demonstrated narrowing. Right profundus femoris: No demonstrated narrowing. Right superficial femoral: Midportion is occluded for a length of the proximally 6 cm Right popliteal artery: No demonstrated narrowing. Right tibioperoneal trunk: No demonstrated narrowing. Right anterior tibial artery: No demonstrated narrowing. Right posterior tibial artery: No demonstrated narrowing. Right peroneal artery: No demonstrated narrowing. LEFT LOWER EXTREMITY Left common femoral artery: No demonstrated narrowing. Left profundus femoris: No demonstrated narrowing. Left superficial femoral: Multiple moderate tandem stenoses without occlusion Left popliteal artery: No demonstrated narrowing. Left tibioperoneal trunk: No demonstrated narrowing. Left anterior tibial artery: No demonstrated narrowing. Left posterior tibial artery: No demonstrated narrowing. Left peroneal artery: No demonstrated narrowing. Indeterminate 3.8 x 2.5 cm mass in the right adrenal gland. Consider follow-up adrenal MRI clinically indicated. Left tibia hardware. 4 cm left renal cyst. Prostate calcifications. CT/CTA Abd w/Runoff W/WO Contrast IMPRESSION: Occlusions of the bilateral internal iliac arteries. Occlusion of the midportion of the right superficial femoral artery. Multiple tandem stenoses of the left superficial femoral artery without occlusion. Electronically Signed: Alberto Herrmann MD at 22:11 EST Tel , Service support ,
[2019-11-09 21:46] VITALS: BP 138/72; PULSE 102; RESP 16; O2SAT 97
[2019-11-09] MEDS: HYDROmorphone 0.5 MG/0.5 ML SYRINGE IV (21:56)
[2019-11-09 23:01] VITALS: BP 144/81; PULSE 122; RESP 16; O2SAT 93
== END 2019-11-09 23:01 | disposition home or self-care (01) ==
PROVIDERS: Emergency Provider Emergency Medicine; Family Provider Family Medicine; PCP Family Medicine
DX: E11.51 Type 2 diabetes mellitus with diabetic peripheral angiopathy without gangrene (principal); E78.5 Hyperlipidemia, unspecified; I10 Essential (primary) hypertension; I48.0 Paroxysmal atrial fibrillation; I48.92 Unspecified atrial flutter; Z95.1 Presence of aortocoronary bypass graft; Z79.82 Long term (current) use of aspirin; Z79.84 Long term (current) use of oral hypoglycemic drugs; Z79.899 Other long term (current) drug therapy; F17.200 Nicotine dependence, unspecified, uncomplicated
CPT/HCPCS: 75635; 80048; 85025; 93005; 93970; 96361; 96374; 96375; 96376; 99284; J7030; Q9967; A4216; J2405

== ENCOUNTER 2019-11-18 15:06 | Emergency (ER) | payer MEDICAID, SELFPAY ==
[2019-11-11 15:19] VITALS: BMI 26.4
[2019-11-18 15:08] VITALS: BP 112/68; PULSE 84; RESP 18; TEMP 36.1; O2SAT 99; BMI 24.5
--- NOTE | 2019-11-18 15:43 | ED.VISSUMM ---
- ER Visit Summary Date of Service: 11/18/19 Chief Complaint: [Skin itching and hallucinations of worms crawling on his skin] History of Present Illness: The patient is a 54 M [presents to the emergency department stating that he has worms crawling out of his skin. Patient states symptoms start about 3 days ago. Patient has a family member with him that is I believe his stepmother. Patient denies any new medications. Denies any falls or head injuries. He denies any recent illness. Patient apparently was seen by the primary care physician few days ago for same complaint and was ordered some prednisone. Patient initially denied any illicit drug use however once the family member that was with him stepped outside the room he admitted that he had used methamphetamines a few days ago stating I did a line with a body. Patient does not want me to inform his family member of this. Patient with history of coronary artery disease, diabetes, hypertension, peripheral artery disease, A. fib, high cholesterol, and three-vessel CABG.] Patient denies feeling suicidal or homicidal. Physical Examination: [HEENT-PERRLA, EOMI. Cranial nerves II through XII grossly intact. TMs clear. Mucous membranes moist. No adenopathy. Cardiovascular-regular rate and rhythm without murmur or ectopy Lungs-clear to auscultation, chest wall stable without crepitus or subcu emphysema Abdomen-normoactive bowel sounds, soft, nontender, no rebound or rigidity, no peritoneal signs. Extremities-intact ?4, normal range of motion, normal pulses. Skin exam-patient has multiple excoriated lesions of varying sizes involving the upper extremities as well as the lower extremities. At one point the patient was looking at his bellybutton and swore that there was a spider crawling out of it. Test Results: [CBC with differential was normal. Chemistries unremarkable. Alcohol was negative. Toxicology screen positive for amphetamines and MDMA. Patient also positive for marijuana.] Emergency Department Course and Treatment: [Patient was given a milligram of Ativan and he had good relief from his itching and general feeling of anxiety.] Treatment Plan: [Patient advised to discontinue the methamphetamine use as I suspect this is likely the cause of his symptomatology.] Disposition: [Discharged home in stable condition.] Impression: [Illicit drug use/amphetamines Dermatitis] This note was generated with [employer] dictation software. It may contain incorrect words, spelling, and punctuation that were not noted in review of the chart prior to signing ED Disposition - Plan for ED Patient: Referrals: Blaze Louis MD [Primary Care Provider] -
[2019-11-18] MEDS: LORazepam 1 MG Tablet PO (15:46)
[2019-11-18 15:50] LABS: Absolute Lymphocyte Count 2.67 X10^3/uL (0.83-4.51); Absolute Neutrophil Count 6.1 X10^3/uL (2.0-7.7); Basophil# 0.09 X10^3/uL; Basophil% 0.9 % (0-1); Eosinophil# 0.36 X10^3/uL; Eosinophils% 3.5 % (0-5); Hematocrit 42.1 % (40-54); Hemoglobin 12.9 g/dL (13.0-16.5); Lymphocyte # 2.67 X10^3/ul (4.0); Mean Corp Hgb Conc 30.6 g/dL (32-36); Mean Corpuscular Hgb 27.4 pg (27.0-32.0); Mean Corpuscular Volume 89.6 fL (80-94); Mean Platelet Vol. 9.8 fl (6.2-12.0); Monocyte% 9.7 % (0-10); NRBC Flagged by Analyzer 0 % (0-5); Neutrophil # 6.13 X10^3/uL (2.7-7.7); Neutrophil % 59.6 % (47-70); Platelet Count 374 K/mm3 (150-450); RBC Distribution Width SD 45.3 fl (35.1-43.9); White Blood Count 10.3 K/mm3 (4.4-11.0)
[2019-11-18 16:20] LABS: Anion Gap 7 (5-15); BUN 19 mg/dL (7-18); BUN/Creat Ratio 17.8 RATIO (10-20); Calcium,Total 9.3 mg/dL (8.5-10.1); Chloride 109 mmol/L (98-107); Creatinine, Serum 1.07 mg/dL (0.70-1.30); EST Glomerular Filtration Rate 77 mL/min (>60); Est Glom Filt Rate - Afr Amer 93 mL/min (>60); Estimated Creatinine Clearance 81.49 ml/min; Glucose 97 mg/dL (74-106); Potassium 3.5 mmol/L (3.5-5.1); Sodium Level 141 mmol/L (136-145)
[2019-11-18 16:46] LABS: Alcohol, Blood (Medical)-Serum < 3.0 mg/dL
[2019-11-18 16:53] LABS: Amphetamine Urine VISTA POSITIVE (<1000 ng/mL); Barbiturate Urine VISTA NEGATIVE (< 200 ng/mL); Benzodiazepine Urine VISTA NEGATIVE (< 200 ng/mL); Cocaine Urine VISTA NEGATIVE (< 300 ng/mL); Ecstacy Urine VISTA POSITIVE (< 500 ng/mL); Methadone Urine VISTA NEGATIVE (< 300 ng/mL); PCP Urine VISTA NEGATIVE (< 25 ng/mL); THC Urine VISTA POSITIVE (< 50 ng/mL); Vista UDS pH Range 5
--- NOTE | 2019-11-18 17:10 | ED.DEP ---
ED Disposition - Plan for ED Patient: Instructions: Amphetamine Screen Urine, DERMATITIS, Non-Specific Prescriptions: Lorazepam [Ativan] 1 mg PO TID PRN #6 tab PRN Reason: Anxiety Prescription Printed Referrals: Blaze Louis MD [Primary Care Provider] - 3-5 Days
[2019-11-18 17:16] VITALS: BP 129/61; PULSE 71; RESP 15; O2SAT 98
== END 2019-11-18 17:17 | disposition home or self-care (01) ==
LOC: ED 15:53
PROVIDERS: Emergency Provider Emergency Medicine; Family Provider Family Medicine; PCP Family Medicine
DX: F15.10 Other stimulant abuse, uncomplicated (principal); L30.9 Dermatitis, unspecified; I25.10 Atherosclerotic heart disease of native coronary artery without angina pectoris; E11.9 Type 2 diabetes mellitus without complications; I10 Essential (primary) hypertension; I73.9 Peripheral vascular disease, unspecified; I48.91 Unspecified atrial fibrillation; E78.00 Pure hypercholesterolemia, unspecified; Z95.1 Presence of aortocoronary bypass graft; Z72.0 Tobacco use
CPT/HCPCS: 80048; 80307; 80320; 85025; 99283; G0480

== ENCOUNTER → 2019-12-16 12:57 | Outpatient (CLI) | payer MEDICAID, SELFPAY ==
[2019-12-13 06:16] VITALS: BMI 24.3
[2019-12-16 16:22] LABS: Chlamydia Trachomatis by PCR Negative (Negative); Neisserai gonorrhoeae by PCR Negative (Negative); Probe Check PASS; Sample Adequacy Control PASS; Specimen Processing Control PASS
== END ==
PROVIDERS: PCP Family Medicine; Referring Provider Family Medicine; Visit Provider Family Medicine
DX: R30.0 Dysuria (principal)
CPT/HCPCS: 87086; 87491; 87591

== ENCOUNTER → 2019-12-28 11:27 | Outpatient (CLI) | payer MEDICAID, SELFPAY ==
[2019-12-13 06:16] VITALS: BMI 24.3
[2019-12-28 12:35] LABS: Absolute Lymphocyte Count 1.57 X10^3/uL (0.83-4.51); Absolute Neutrophil Count 6.1 X10^3/uL (2.0-7.7); Basophil# 0.07 X10^3/uL; Basophil% 0.8 % (0-1); Eosinophils% 4.4 % (0-5); Hematocrit 39.6 % (40-54); Hemoglobin 11.9 g/dL (13.0-16.5); Lymphocyte # 1.57 X10^3/ul (4.0); Lymphocyte % 17.2 % (19-41); Mean Corp Hgb Conc 30.1 g/dL (32-36); Mean Corpuscular Hgb 27.4 pg (27.0-32.0); Mean Platelet Vol. 10.3 fl (6.2-12.0); Monocyte# 0.91 X10^3/uL; NRBC Flagged by Analyzer 0 % (0-5); Neutrophil # 6.13 X10^3/uL (2.7-7.7); Neutrophil % 67.2 % (47-70); Platelet Count 291 K/mm3 (150-450); RBC Distribution Width CV 16.3 % (11.6-14.6); Red Blood Count 4.35 M/mm3 (4.6-6.2); White Blood Count 9.1 K/mm3 (4.4-11.0)
[2019-12-28 13:03] LABS: ALB/GLOB Ratio 0.8 RATIO (0.9-2.4); AST(SGOT) 8 U/L (15-37); Alanine Aminotransfer ALT/SGPT 16 U/L (16-61); Albumin, Serum 3.2 g/dL (3.2-5.0); Alkaline Phosphatase 101 U/L (45-117); Anion Gap 4 (5-15); BUN 16 mg/dL (7-18); BUN/Creat Ratio 15.4 RATIO (10-20); Calcium,Total 9.4 mg/dL (8.5-10.1); Chloride 106 mmol/L (98-107); Creatinine, Serum 1.04 mg/dL (0.70-1.30); EST Glomerular Filtration Rate 79 mL/min (>60); Est Glom Filt Rate - Afr Amer 96 mL/min (>60); Globulin 4.2 g/dL (2.2-4.2); Glucose 127 mg/dL (74-106); Potassium 3.5 mmol/L (3.5-5.1); Protein, Total 7.4 g/dL (6.4-8.2); Sodium Level 141 mmol/L (136-145)
[2019-12-28 13:52] LABS: HIV - WCH Non-Reactive (Nonreactive); Hepatitis B Surface Antibody Non-Reactive; Hepatitis B Surface Antigen Non-Reactive (Nonreactive); Hepatitis C Antibody Non-Reactive (Nonreactive)
[2019-12-29 03:16] LABS: Rapid Plasmin Reagin (RPR) NONREACTIVE (NONREACTIVE)
== END ==
PROVIDERS: PCP Family Medicine; Referring Provider Family Medicine; Visit Provider Family Medicine
DX: R30.0 Dysuria (principal); N48.9 Disorder of penis, unspecified; F19.10 Other psychoactive substance abuse, uncomplicated
CPT/HCPCS: 36415; 80053; 85025; 86592; 86703; 86706; 86803; 87340

== ENCOUNTER → 2020-01-12 12:50 | Outpatient (CLI) | payer MEDICAID, SELFPAY ==
[2019-12-13 06:16] VITALS: BMI 24.3
--- NOTE | 2020-01-13 09:49 | PFT ---
INTRODUCTION: The patient is a 54-year-old male that presents for pulmonary function studies secondary to a diagnosis of COPD. Respiratory therapy reports good patient effort. Bronchodilators were used during testing. INTERPRETATION: Forced expiration spirometry demonstrates no evidence of a large airways obstructive ventilatory defect. There was no significant response to aerosolized bronchodilators. Spirograms are of fair quality and terminate just prior to 6 seconds, which could underestimate FVC. Body plethysmography was performed and reveals lung volumes to be within normal limits. Diffusing capacity by single breath CO is also within normal limits as well. IMPRESSION: Normal pulmonary function studies.
== END ==
PROVIDERS: Family Provider Family Medicine; PCP Family Medicine; Referring Provider Internal Medicine Critical Care Medicine; Visit Provider Internal Medicine Critical Care Medicine
DX: J44.9 Chronic obstructive pulmonary disease, unspecified (principal); F17.210 Nicotine dependence, cigarettes, uncomplicated
CPT/HCPCS: 94060; 94726; 94729

== ENCOUNTER → 2020-02-17 14:11 | Outpatient (CLI) | payer MEDICAID, SELFPAY ==
[2019-12-13 06:16] VITALS: BMI 24.3
[2020-02-17 17:45] LABS: Absolute Lymphocyte Count 1.67 X10^3/uL (0.83-4.51); Absolute Neutrophil Count 8.6 X10^3/uL (2.0-7.7); Basophil# 0.06 X10^3/uL; Basophil% 0.5 % (0-1); Eosinophil# 0.34 X10^3/uL; Eosinophils% 2.9 % (0-5); Hemoglobin 12.9 g/dL (13.0-16.5); Lymphocyte # 1.67 X10^3/ul (4.0); Lymphocyte % 14.1 % (19-41); Mean Corpuscular Hgb 26.8 pg (27.0-32.0); Mean Corpuscular Volume 89.4 fL (80-94); Mean Platelet Vol. 11.6 fl (6.2-12.0); Monocyte# 1.12 X10^3/uL; Monocyte% 9.5 % (0-10); NRBC Flagged by Analyzer 0 % (0-5); Neutrophil # 8.62 X10^3/uL (2.7-7.7); Neutrophil % 72.7 % (47-70); Platelet Count 251 K/mm3 (150-450); RBC Distribution Width CV 16.5 % (11.6-14.6); RBC Distribution Width SD 53.9 fl (35.1-43.9); Red Blood Count 4.81 M/mm3 (4.6-6.2); White Blood Count 11.9 K/mm3 (4.4-11.0)
[2020-02-17 17:47] LABS: AST(SGOT) 15 U/L (15-37); Alanine Aminotransfer ALT/SGPT 19 U/L (16-61); Albumin, Serum 3.6 g/dL (3.2-5.0); Alkaline Phosphatase 125 U/L (45-117); Anion Gap 7 (5-15); BUN 9 mg/dL (7-18); BUN/Creat Ratio 11.1 RATIO (10-20); Calcium,Total 9.4 mg/dL (8.5-10.1); Chloride 106 mmol/L (98-107); Cholesterol 136 mg/dL (200); Creatinine, Serum 0.81 mg/dL (0.70-1.30); EST Glomerular Filtration Rate 105 mL/min (>60); Est Glom Filt Rate - Afr Amer 128 mL/min (>60); Ferritin 17 ng/mL (26-388); Globulin 3.6 g/dL (2.2-4.2); Glucose 84 mg/dL (74-106); High Density Lipoprotein 47 mg/dL; Iron 23 ug/dL (65-175); Iron Binding Capacity,Total 399 ug/dL (250-450); Potassium 4.3 mmol/L (3.5-5.1); Protein, Total 7.2 g/dL (6.4-8.2); Sodium Level 140 mmol/L (136-145); Triglycerides 142 mg/dL; Very Low Density Lipoprotein 28 mg/dL (5-40)
[2020-02-17 17:52] LABS: Vitamin B12 417 pg/mL (211-911)
[2020-02-17 18:16] LABS: Hemoglobin A1c 6.1 % (4.2-6.3)
[2020-02-21 09:48] LABS: Vitamin B1, Thiamine 163.4 nmol/L (66.5-200.0)
== END ==
PROVIDERS: PCP Family Medicine; Referring Provider Family Medicine; Visit Provider Family Medicine
DX: E55.9 Vitamin D deficiency, unspecified (principal); E53.9 Vitamin B deficiency, unspecified; E78.5 Hyperlipidemia, unspecified; I10 Essential (primary) hypertension; E61.1 Iron deficiency; R41.0 Disorientation, unspecified; E11.9 Type 2 diabetes mellitus without complications
CPT/HCPCS: 36415; 80053; 80061; 82140; 82306; 82607; 82728; 83036; 83540; 83550; 84425; 85025

== ENCOUNTER → 2020-03-27 08:56 | Outpatient (CLI) | payer MEDICAID, SELFPAY ==
[2019-12-13 06:16] VITALS: BMI 24.3
--- NOTE | 2020-03-27 09:00 | RAD_ITS ---
STUDY: X-RAY CHEST REASON FOR EXAM: Male, 54 years old. SHORT OF BREATH, PNEUMONIA TECHNIQUE: PA and lateral views of the chest. COMPARISON: Comparison is made with prior study dated May 25, 2019. FINDINGS: Stable mild increased linear markings at the lung bases suggestive of scarring. Blunting of both costophrenic angles posteriorly. Sternal cerclage wires and vascular clips are present from a prior sternotomy and coronary artery bypass graft procedure (CABG). A loop recorder device is seen overlying the left lower lobe. Normal mediastinum and ranjit. Normal visualized pulmonary arteries. Normal visualized aortic arch and descending thoracic aorta. Normal visualized thoracic spine. Normal visualized ribs, clavicles, and shoulders. There is no demonstrated abnormality of the visualized soft tissue structures of the upper abdomen. RAD/Chest PA and Lateral IMPRESSION: Stable mild increased white lung base suggestive of scarring. Long head of the left costophrenic angle. Electronically Signed: Harry Voss, at 9:28 EDT , Service support ,
[2020-03-27 10:04] LABS: Absolute Lymphocyte Count 1.78 X10^3/uL (0.83-4.51); Absolute Neutrophil Count 6.7 X10^3/uL (2.0-7.7); Basophil# 0.05 X10^3/uL; Basophil% 0.5 % (0-1); Eosinophil# 0.44 X10^3/uL; Eosinophils% 4.4 % (0-5); Hematocrit 43.7 % (40-54); Hemoglobin 12.7 g/dL (13.0-16.5); Lymphocyte # 1.78 X10^3/ul (4.0); Lymphocyte % 17.8 % (19-41); Mean Corp Hgb Conc 29.1 g/dL (32-36); Mean Corpuscular Hgb 26.6 pg (27.0-32.0); Mean Corpuscular Volume 91.4 fL (80-94); Mean Platelet Vol. 10.4 fl (6.2-12.0); Monocyte# 0.91 X10^3/uL; Monocyte% 9.1 % (0-10); NRBC Flagged by Analyzer 0 % (0-5); Neutrophil % 67.2 % (47-70); Platelet Count 202 K/mm3 (150-450); RBC Distribution Width CV 18.6 % (11.6-14.6); RBC Distribution Width SD 59.1 fl (35.1-43.9); Red Blood Count 4.78 M/mm3 (4.6-6.2)
[2020-03-27 10:14] LABS: Iron 41 ug/dL (65-175)
[2020-03-27 10:19] LABS: BNP,B-Type NATRIURETIC PEPTIDE 165.3 pg/mL (0-100)
== END ==
PROVIDERS: PCP Family Medicine; Referring Provider Family Medicine; Visit Provider Family Medicine
DX: E61.1 Iron deficiency (principal); R06.02 Shortness of breath
CPT/HCPCS: 36415; 71046; 82140; 83540; 83880; 85025

== ENCOUNTER 2020-04-29 16:47 | Observation (INO) | payer MEDICAID, SELFPAY ==
[2019-12-13 06:16] VITALS: BMI 24.3
[2020-04-29] VITALS (11 sets, daily range): BP systolic 125–182; BP diastolic 82–92; PULSE 102–108; RESP 16–21; TEMP 36.4–36.8; O2SAT 93–99; BMI 29.7
--- NOTE | 2020-04-29 16:59 | EKG12_ITS ---
Test Reason : REPEAT Blood Pressure : / mmHG Vent. Rate : 104 BPM Atrial Rate : 312 BPM P-R Int : 000 ms QRS Dur : 082 ms QT Int : 372 ms P-R-T Axes : 134 061 057 degrees QTc Int : 489 ms Atrial flutter with 3:1 A-V conduction Abnormal ECG Confirmed by JHON LOMELI, SMITA ([id number]), newspaper editor managing EDITH MENARD ([id number]) on 05/01/2020 1:30:25 PM Referred By: DHRUV Confirmed By:SMITA FERREIRA MD
--- NOTE | 2020-04-29 17:01 | EKG12_ITS ---
Test Reason : CP Blood Pressure : / mmHG Vent. Rate : 106 BPM Atrial Rate : 318 BPM P-R Int : 000 ms QRS Dur : 078 ms QT Int : 362 ms P-R-T Axes : 000 063 054 degrees QTc Int : 480 ms Atrial flutter with variable A-V block Abnormal ECG Confirmed by JHON LOMELI, SMITA ([id number]), market editor EDITH MENARD ([id number]) on 05/01/2020 1:31:29 PM Referred By: SADIQ/DHRUV Confirmed By:SMITA FERREIRA MD
[2020-04-29 17:06] LABS: Absolute Lymphocyte Count 2.01 X10^3/uL (0.83-4.51); Absolute Neutrophil Count 10.5 X10^3/uL (2.0-7.7); Basophil# 0.05 X10^3/uL; Basophil% 0.4 % (0-1); Eosinophil# 0.19 X10^3/uL; Eosinophils% 1.4 % (0-5); Hematocrit 46.2 % (40-54); Hemoglobin 14.3 g/dL (13.0-16.5); Lymphocyte # 2.01 X10^3/ul (4.0); Lymphocyte % 14.6 % (19-41); Mean Corpuscular Hgb 28.3 pg (27.0-32.0); Mean Corpuscular Volume 91.3 fL (80-94); Mean Platelet Vol. 10.1 fl (6.2-12.0); Monocyte# 0.99 X10^3/uL; Monocyte% 7.2 % (0-10); NRBC Flagged by Analyzer 0 % (0-5); Neutrophil % 76.1 % (47-70); Platelet Count 197 K/mm3 (150-450); RBC Distribution Width CV 18.8 % (11.6-14.6); RBC Distribution Width SD 60.8 fl (35.1-43.9); Red Blood Count 5.06 M/mm3 (4.6-6.2); White Blood Count 13.8 K/mm3 (4.4-11.0)
--- NOTE | 2020-04-29 17:06 | ED.VIS.GEN ---
History of Present Illness Chief Complaint: Chest Pain Informant: Patient Onset: Yesterday Current Severity: Moderate Maximum Severity: Moderate Narrative: Has history of chronic chest pain. He states symptoms worsened last evening. He describes a pressure in his chest under the left jaw and into his left shoulder. He does have a history of coronary artery disease and tells me he has had approximately 6 heart attacks. He does have 9 cardiac stents. He is complaining of pain over the area where a loop recorder had previously been installed. He does report some shortness of breath but again states that that is mostly chronic. He believes his last cardiac cath was approximately 6 years ago. 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 Swift Prior records reviewed: Yes Surgical History: coronary bypass surgery Smoking Status: Current every day smoker - Family History Maternal Family History: Family History (Last Reviewed 12/13/19 @ 12:53 by Alina Hong) Father CAD (coronary artery disease) COPD (chronic obstructive pulmonary disease) CHF (congestive heart failure) Mother COPD (chronic obstructive pulmonary disease) Family History: Reports: No pertinent history Paternal Family History: Family History (Last Reviewed 12/13/19 @ 12:53 by Alina Hong) Father CAD (coronary artery disease) COPD (chronic obstructive pulmonary disease) CHF (congestive heart failure) Mother COPD (chronic obstructive pulmonary disease) Family History: Reports: No pertinent history Review of Systems General: Denies: Chills, Fever Eyes: Denies: Visual changes - bilaterally ENT: Denies: Bilateral ear pain Cardiovascular: Reports: Chest pain Respiratory: Reports: Dyspnea Gastrointestinal: Denies: Abdominal pain, Nausea, Vomiting, Diarrhea Genitourinary: Denies: Dysuria Musculoskeletal: Denies: Swelling, Extremity Pain Skin: Denies: Rash Neurological: Denies: Headache Hematologic: Denies: Easy bruising, Easy bleeding Allergy: Denies: Uticaria Physical Exam Vital Signs/Narrative: Vital Signs Temp Pulse Resp BP Pulse Ox 04/29/20 16:52 166/87 H 04/29/20 16:48 98.3 F 105 H 21 H 182/87 H 97 Inital Vital Signs reviewed: Yes General: Well nourished, Well developed Head: Normocephalic ENT: Moist mucous membranes Neck: Supple Cardiovascular: Tachycardia Respiratory: No distress, CTA bilaterally Abdomen: Soft, Nontender Extremities: Nontender, No edema Skin: Normal color Neurological: Alert, Oriented x3 Psychological: Normal affect Diagnostic/Tx/Re-eval Impressions Chest X-Ray 04/29/20 17:10 IMPRESSION: No acute thoracic pathology. Electronically Signed: Andres Sheridan, at 17:33 EDT Tel , Service support , Chest CTA 04/29/20 17:45 IMPRESSION: No evidence of pulmonary embolus. No evidence of thoracic aortic aneurysm or dissection. Small right pleural effusion with overlying atelectasis. No pulmonary infiltrates. Mediastinal lymphadenopathy. 3.7 x 2.3 cm indeterminate right adrenal nodule. Electronically Signed: Andres Sheridan, at 18:47 EDT Tel , Service support , 04/29/20 17:10 Chest 1 View (Portable) [RAD] Stat 04/29/20 17:45 CTA Chest W/WO Contrast [CT] Stat Laboratory Results 04/29/20 04/29/20 04/29/20 16:50 16:50 16:50 WBC 13.8 H RBC 5.06 Hgb 14.3 Hct 46.2 MCV 91.3 MCH 28.3 MCHC 31.0 L RDW Std Deviation 60.8 H RDW Coeff of Arleen 18.8 H Plt Count 197 MPV 10.1 Immature Gran % (Auto) 0.300 Neut % (Auto) 76.1 H Lymph % (Auto) 14.6 L [place] % (Auto) 7.2 Eos % (Auto) 1.4 Baso % (Auto) 0.4 Absolute Neuts (auto) 10.5 H Absolute Lymphs (auto) 2.01 Nucleated RBC % 0 D-Dimer Quant (PE/DVT) 0.82 H* Sodium 139 Potassium 3.7 Chloride 105 Carbon Dioxide 26.0 Anion Gap 8 BUN 8 Creatinine 1.05 Estim Creat Clear Calc 80.43 Est GFR (MDRD) Af Amer 95 Est GFR (MDRD) Non-Af 78 BUN/Creatinine Ratio 7.6 L Glucose 124 H Calcium 9.8 Troponin I 0.015 - EKG Initial EKG Interpretation: Atrial Flutter - Atrial flutter with variable block. Ventricular rate 106. No acute ST change. Follow-up EKG Interpretation: Atrial Flutter - Atrial flutter with 3-1 conduction. Ventricular rate 104. No acute ST change. - Medical Decision Making Patient had taken 4 nitro prior to arrival. He was given morphine and Zofran here along with 3 additional baby aspirin. D-dimer is slightly elevated however CTA is unremarkable. Patient will be discussed with hospitalist for observation overnight. He does report frequent episodes of syncope, however in reviewing the cardiology notes patient has had this for quite some time. He did have a loop recorder placed that is no longer functional. While the loop recorder was functional there was no cardiac cause for his syncope identified. ED Disposition - Plan for ED Patient: Disposition: Acute [facility] Diagnosis: Chest pain Referrals: Blaze Louis MD [Primary Care Provider] -
--- NOTE | 2020-04-29 17:10 | RAD_ITS ---
STUDY: X-RAY CHEST REASON FOR EXAM: Male, 54 years old. Chest pain TECHNIQUE: Frontal view of the chest COMPARISON: 03/27/2020 FINDINGS: The lungs are clear. There are no pleural effusions. There is no pneumothorax. The heart is enlarged, but stable. Again noted are sternotomy wires. The visualized osseous structures are within normal limits. RAD/Chest 1 View (Portable) IMPRESSION: No acute thoracic pathology. Electronically Signed: Andres Sheridan, at 17:33 EDT Tel , Service support ,
[2020-04-29] MEDS: 0.9% Normal Saline 1,000 ML 150 ML IV (17:13)
[2020-04-29] MEDS: Ondansetron 4 MG/2 ML Vial IV (17:13)
[2020-04-29] MEDS: Morphine 4 MG/ML Syringe IV (17:13)
[2020-04-29] MEDS: Aspirin 81 MG TAB.CHEW 243 MG PO (17:13)
[2020-04-29 17:23] LABS: D-Dimer Quantitative (DVT/PE) 0.82 FEU/ug/m (0.27-0.49)
[2020-04-29 17:25] LABS: Anion Gap 8 (5-15); BUN 8 mg/dL (7-18); BUN/Creat Ratio 7.6 RATIO (10-20); Calcium,Total 9.8 mg/dL (8.5-10.1); Chloride 105 mmol/L (98-107); Creatinine, Serum 1.05 mg/dL (0.70-1.30); EST Glomerular Filtration Rate 78 mL/min (>60); Est Glom Filt Rate - Afr Amer 95 mL/min (>60); Estimated Creatinine Clearance 80.43 ml/min; Glucose 124 mg/dL (74-106); Potassium 3.7 mmol/L (3.5-5.1); Sodium Level 139 mmol/L (136-145)
--- NOTE | 2020-04-29 17:45 | CT_ITS ---
STUDY: CTA CHEST REASON FOR EXAM: Male, 54 years old. Chest pain x several days, increased SOB, hx afib, 3 vessel CABG, multiple coronary stents, HTN. RADIATION DOSAGE (If Supplied By Facility): CTDIvol = ( 13.28 ) mGy, DLP = ( 548.17 ) mGycm TECHNIQUE: The examination was performed with the intravenous administration of 100mL Isovue 370. Post-processing of the angiographic images was performed, with multiplanar reformation and 3D reconstruction. Individualized dose optimization techniques were used for this CT. COMPARISON: None. FINDINGS: There is a small right pleural effusion with overlying atelectasis. There is no left-sided effusion. There are no focal infiltrates. There is no evidence of pulmonary embolus. There is no evidence of thoracic aortic aneurysm or dissection. The heart is enlarged. There is no pericardial effusion. The patient is status post sternotomy and coronary artery bypass. There is mediastinal lymphadenopathy with the largest node measuring 2.1 cm in the subcarinal region. Images through the upper abdomen demonstrate a 3.7 x 2.3 cm indeterminate right adrenal nodule. There are no destructive osseous lesions. CT/CTA Chest W/WO Contrast IMPRESSION: No evidence of pulmonary embolus. No evidence of thoracic aortic aneurysm or dissection. Small right pleural effusion with overlying atelectasis. No pulmonary infiltrates. Mediastinal lymphadenopathy. 3.7 x 2.3 cm indeterminate right adrenal nodule. Electronically Signed: Andres Sheridan, at 18:47 EDT Tel , Service support ,
--- NOTE | 2020-04-29 18:31 | ED.RN ---
PT STATES ALL MY MEDICATIONS ARE THE SAME AND NOTHING HAS CHANGED IN A LONG TIME
--- NOTE | 2020-04-29 19:53 | HP.PCM_ITS ---
Problem List (1) Chest pain Status: Acute (2) Chronic obstructive pulmonary disease Status: Suspected Qualifiers: COPD type: emphysema Emphysema type: centrilobular Qualified Code(s): J43.2 - Centrilobular emphysema (3) PAD (peripheral artery disease) Status: Chronic (4) CAD (coronary artery disease) Status: Chronic (5) Hx of CABG Status: Chronic Comment: CABG X 3 vessels, CARTER to LAD, SVG to OM1, SVG to OM3 11/03 (6) Paroxysmal atrial fibrillation Status: Chronic (7) Diabetes mellitus Status: Chronic (8) Hypertension Status: Chronic Qualifiers: (9) Hyperlipidemia Status: Chronic Qualifiers: History of Present Illness Date of Admission: 04/29/20 Chief Complaint: Chest pain. The patient is a 54 year old M with past medical history as mentioned above pre sented to the emergency room because of chest pain. This chest pain started yesterday evening, described as sharp pain, left-sided, 10 out of 10 in severity, goes down to 7 out of 10 in severity, radiates to the left shoulder, associated with dizziness, no aggravating or relieving factors and he passed out multiple times according to the patient. He does have a history of chronic chest pain since he had his CABG but he mentioned the pain is getting worse than usual. In the emergency department, heart rate has been around 100, blood pressure slightly elevated, other vital signs are stable. Routine blood work was remarkable for mild leukocytosis, otherwise normal. EKG revealed A. fib, heart rate has been around 105, no acute segment changes. D-dimer was elevated. Chest x-ray showed no acute findings. CTA chest done and revealed no PE or dissection, small right pleural effusion, right adrenal nodule. He is being admitted for chest pain for evaluation and also for incidental right adrenal nodule. Past Medical History Past Medical History (Chronic Problems): Chronic Problems (Last Reviewed 12/13/19 @ 12:52 by Alina Hong) Smoking greater than 40 pack years (Chronic) PAD (peripheral artery disease) (Chronic) CAD (coronary artery disease) (Chronic) Hx of CABG (Chronic) CABG X 3 vessels, CARTER to LAD, SVG to OM1, SVG to OM3 11/03 History of open reduction and internal fixation (ORIF) procedure (Chronic) Left lower extremity Typical atrial flutter (Chronic) Other specified cardiac device in situ (Chronic) Presence of coronary angioplasty implant and graft (Chronic) February 2005 IVUS of LAD, May 2005 PTCA & ALBAN X 3 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 [place] Paroxysmal atrial fibrillation (Chronic) Diabetes mellitus (Chronic) Hypertension (Chronic) Hyperlipidemia (Chronic) Nicotine abuse (Chronic) Medical History: Medical History (Last Reviewed 12/13/19 @ 12:52 by Alina Hong) PAD (peripheral artery disease) (Chronic) I73.9 CAD (coronary artery disease) (Chronic) I25.10 Typical atrial flutter (Chronic) I48.3 Other specified cardiac device in situ (Chronic) Z95.818 Paroxysmal atrial fibrillation (Chronic) I48.0 Diabetes mellitus (Chronic) E11.9 Hypertension (Chronic) I10 Hyperlipidemia (Chronic) E78.5 Allergies seasonal Allergy (Uncoded 04/29/20 16:48) SOB Home Medications: Ambulatory Orders Medication Instructions Recorded Gabapentin [Neurontin] 600 mg PO TIDCM 12/07/15 metFORMIN HCl [Glucophage] 1,000 mg PO BIDCM 12/07/15 duloxetine 60 mg capsule,delayed 60 mg PO DAILY 01/13/18 release ferrous sulfate 325 mg (65 mg 325 mg PO DAILY tab 11/26/18 iron) tablet lisinopril 10 mg tablet 10 mg PO DAILY #90 tab 06/30/19 Albuterol IH (ProAir) [Proair Hfa 2 puff INHALATION Q6H PRN PRN 11/09/19 (SP)Vent Pts] Albuterol Sulfate 1 dose IH Q4H PRN PRN 11/09/19 Aspirin 81 mg PO DAILY 11/09/19 Nitroglycerin 0.4 mg SL PRN PRN 11/09/19 clopidogrel 75 mg tablet 75 mg PO DAILY #30 tab 11/11/19 ezetimibe 10 mg tablet 10 mg PO DAILY #30 tab 11/11/19 furosemide 40 mg tablet 40 mg PO BID #60 tab 11/11/19 isosorbide mononitrate 120 mg 120 mg PO DAILY #30 tab 11/11/19 tablet,extended release 24 hr metoprolol succinate 100 mg 100 mg PO DAILY #30 tab 11/11/19 tablet,extended release 24 hr pantoprazole 40 mg tablet,delayed 40 mg PO DAILY 11/11/19 release pregabalin 100 mg capsule 100 mg PO TID cap 11/11/19 ropinirole 0.25 mg tablet 0.25 mg PO QHS 11/11/19 rosuvastatin 40 mg tablet 40 mg PO DAILY 11/11/19 sotalol 120 mg tablet 120 mg PO BID #60 tab 11/11/19 tiotropium 2.5 mcg-olodaterol 2.5 2 puff INHALATION DAILY 11/11/19 mcg/actuation mist for inhalation trazodone 150 mg tablet 150 mg PO DAILY 11/11/19 Lorazepam [Ativan] 1 mg PO TID PRN #6 tab 11/18/19 Surgical History: Surgical History (Last Reviewed 04/29/20 @ 20:[address] 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 [place] Surgical History: coronary bypass surgery Psychiatric History: Depression Lives: With Family Smoking Status: Current every day smoker Tobacco Use: Cigarettes Alcohol: None Drugs: None - *Family History Maternal Family History: Family History (Last Reviewed 04/29/20 @ 20:[address] Fadia Starkey MD) Father CAD (coronary artery disease) COPD (chronic obstructive pulmonary disease) CHF (congestive heart failure) Mother COPD (chronic obstructive pulmonary disease) Paternal Family History: Family History (Last Reviewed 04/29/20 @ 20:[address] Fadia Starkey MD) Father CAD (coronary artery disease) COPD (chronic obstructive pulmonary disease) CHF (congestive heart failure) Mother COPD (chronic obstructive pulmonary disease) Review of Systems Constitutional: Reports: Weakness. Denies: Anorexia, Chills, Fever Eyes: Denies: Blurred vision, Double vision, Drainage, Redness HEENT: Denies: Difficulty Hearing, Ear Pain, Eye Pain, Nasal Congestion, Sore Throat Cardiovascular: Reports: Chest Pain, Light Headedness, Palpitations, Syncope. Denies: Chest Pressure, Chest Tightness, Heaviness, Paroxysmal Noc. Dyspnea Respiratory: Reports: Cough. Denies: Pleuritic Pain, Shortness of Breath, Sputum production, Wheezing Gastrointestinal: Denies: Abdominal Pain, Constipation, Diarrhea, Nausea, Vomiting Genitourinary: Denies: Dysuria, Frequency, Hematuria Musculoskeletal: Denies: Arm Pain, Back Pain, Foot Pain Skin: Denies: Dryness, Rash Neurological: Denies: Balance problems, Double vision, Change in Speech, Slurred speech, Confusion, Focal weakness, Headaches, Incoordination Psychiatric: Denies: Anxiety, Depression Endocrine: Denies: Change in Body Habitus, Polydipsia, Polyuria VTE Information - Inpt Only VTE Present on Admission: No VTE Mechan Device Prophylaxis: None VTE Pharm Prophylaxis ordered?: Yes Patient Problems: Active and Suspected Problems (Last Reviewed 12/13/19 @ 12:52 by Alina Hong) Chest pain (Acute) - Physical Exam Vitals/I&O's: Vital Signs Temp Pulse Resp BP Pulse Ox 98.3 F 108 H 17 144/88 H 93 04/29/20 19:45 04/29/20 19:45 04/29/20 19:45 04/29/20 19:45 04/29/20 19:45 Oxygen Flow Rate (L/min) 2 Oxygen Delivery Method Room Air Weight: 201 lb 0.985 oz Body Mass Index (BMI) 29.7 Finger Stick Blood Glucose 198 General: Alert, Oriented x3, Cooperative, No apparent distress HEENT: Atraumatic, PERRLA, EOMI, Normocephalic Oral: Moist Mucosa, No Gingival or Mucosal Lesions/ Ulcerations Neck: Supple, No JVD, Negative Carotid Bruits, Trachea Midline, Thyroid Normal Size and Texture Lungs: Clear to auscultation, Normal air movement, No rhonchi, No wheeze, No rales, Diminished Cardiovascular: Regular rate, Regular Rhythm, Normal S1, Normal S2, No murmurs Abdomen: Bowel Sounds Present, Soft, Non Tender, Non-Distended, No Hepato- splenomegaly Extremities: No clubbing, No cyanosis, No edema Skin: No rashes, No breakdown Lymphatic: No Cervical, Supraclavicular, or Inguinal Adenopathy Neurological: Cranial nerves II-XII grossly intact, Motor Exam 5/5 strength throughout Psych/Mental Status: Normal Affect, Appropriate, Alert and oriented to time, place, person, mood and affect Laboratory Results 04/29/20 16:50: WBC 13.8 H, RBC 5.06, Hgb 14.3, Hct 46.2, MCV 91.3, MCH 28.3, MCHC 31.0 L, RDW Std Deviation 60.8 H, RDW Coeff of Arleen 18.8 H, Plt Count 197, MPV 10.1, Immature Gran % (Auto) 0.300, Neut % (Auto) 76.1 H, Lymph % (Auto) 14.6 L, [place] % (Auto) 7.2, Eos % (Auto) 1.4, Baso % (Auto) 0.4, Absolute Neuts (auto) 10.5 H, Absolute Lymphs (auto) 2.01, Nucleated RBC % 0 04/29/20 16:50: D-Dimer Quant (PE/DVT) 0.82 H* 04/29/20 16:50: Sodium 139, Potassium 3.7, Chloride 105, Carbon Dioxide 26.0, Anion Gap 8, BUN 8, Creatinine 1.05, Estim Creat Clear Calc 80.43, Est GFR (MDRD) Af Amer 95, Est GFR (MDRD) Non-Af 78, BUN/Creatinine Ratio 7.6 L, Glucose 124 H, Calcium 9.8, Troponin I 0.015 Clinical Impression(s) from Imaging Studies Chest X-Ray 04/29/20 17:10 IMPRESSION: No acute thoracic pathology. Electronically Signed: Andres Sheridan, at 17:33 EDT Tel , Service support , Chest CTA 04/29/20 17:45 IMPRESSION: No evidence of pulmonary embolus. No evidence of thoracic aortic aneurysm or dissection. Small right pleural effusion with overlying atelectasis. No pulmonary infiltrates. Mediastinal lymphadenopathy. 3.7 x 2.3 cm indeterminate right adrenal nodule. Electronically Signed: Andres Sheridan, at 18:47 EDT Tel , Service support , Current Medications Sodium Chloride () 1,000 mls @ 150 mls/hr IV .[id number] [facility] Last Admin: 04/29/20 17:13 Dose: 150 mls/hr Documented by: Assessment/Plan All Active Problems (Last Reviewed 12/13/19 @ 12:52 by Alina Hong) Chest pain (Acute) This is a 54 years old male patient presented to the emergency room because of chest pain and he is being admitted for evaluation. #1 chest pain: This is chronic, associated with recurrent syncopal episodes. He had a loop recorder in place which was interrogated twice in the last year and showed no evidence of cardiac arrhythmias or acute changes. Patient stated that pain is getting worse than usual. EKG revealed A. fib, no acute hemic changes. Troponin is negative. Chest x-ray without acute findings. CTA chest showed no PE or dissection. Plan: Admit to PCU for observation, cardiac monitoring, serial cardiac enzymes, nuclear stress test tomorrow morning if cardiac enzymes are negative, cardiology consult Tylenol PRN, sublingual nitroglycerin PRN, repeat CBC and BMP tomorrow morning. Discussed with Dr. Lund who recommended nuclear stress test and to consult Dr. Swift tomorrow morning. #2 right adrenal nodule: Incidental finding on CTA chest. It is 3.7 x 2.2 cm. Unclear etiology. Plan: Check serum cortisol, aldosterone, renin, CT scan abdomen and pelvis without contrast. #3 CAD status post CABG and stents: Plan as above, cardiology consult, continue aspirin, Plavix, nitrates, lisinopril, metoprolol and statins. #4 type 2 diabetes mellitus: ADA diet, Accu-Cheks, insulin sliding scale, hold metformin for now. #5 hypertension: Blood pressure stable, continue Lasix, nitrates, metoprolol and lisinopril as well as sotalol. #6 paroxysmal atrial fibrillation/flutter: Rate has been around 100, continue sotalol and metoprolol for rate control. Patient is not on anticoagulation because of history of GI bleed. #7 history of GI bleed: Stable, hemoglobin and hematocrit are at baseline. No evidence of active bleeding. #8 hyperlipidemia: Continue statins. #9 DVT prophylaxis: Subcu heparin. This note was generated with [employer] dictation software. It may contain incorrect words, spelling, and punctuation that were not noted in checking the note before signing. OBSV E&M: [id number] Initial observation care L3
--- NOTE | 2020-04-29 19:56 | CT_ITS ---
STUDY: CT ABDOMEN AND PELVIS WITHOUT CONTRAST REASON FOR EXAM: Male, 54 years old. RT ADRENAL NODULE RADIATION DOSAGE (If Supplied By Facility): CTDIvol = ( 13.57 ) mGy, DLP = ( 678.13 ) mGycm TECHNIQUE: Transaxial images were obtained from the dome of the diaphragm to the symphysis pubis without oral contrast, and without intravenous contrast. Sagittal and coronal images were reconstructed. Individualized dose optimization techniques were used for this CT. COMPARISON: CT a of the abdomen dated November 09, 2019 FINDINGS: There is a small right pleural effusion associated with dependent consolidation within the right lower lobe. There are sternotomy wires present. Normal liver. Normal gallbladder and extrahepatic biliary system. Normal spleen. Normal pancreas. There is a stable 2.5 x 3.9 cm low-attenuation right adrenal nodule with Hounsfield units of 26, unchanged in size and appearance since a prior CT dated November 09, 2019. Normal right kidney. There is a left renal cyst. Normal visualized stomach. Normal small intestine. Normal colon. The appendix is visualized and appears normal. There is diffuse atherosclerotic calcification of the abdominal aorta, without a demonstrated aneurysm. Normal inferior vena cava. There are stable prominent and borderline enlarged retroperitoneal lymph node. Normal urinary bladder. Normal abdominal wall. There are diffuse degenerative changes of the visualized lumbar spine. CT/Abdomen/Pelvis without Cont IMPRESSION: Stable right adrenal nodule since prior CT dated November 09, 2019 which may reflect an underlying adenoma, as precautionary measure consider MRI with contrast for further characterization. Atherosclerosis. Left renal cyst. Stable prominent and borderline enlarged retroperitoneal lymph nodes. Small right pleural effusion associated with minimal dependent consolidation within the right lower lobe. Electronically Signed: Pao Watkins MD at 21:39 EDT Tel , Service support ,
--- NOTE | 2020-04-29 20:06 | EKG12_ITS ---
Test Reason : CP ADMIT Blood Pressure : / mmHG Vent. Rate : 067 BPM Atrial Rate : 303 BPM P-R Int : 000 ms QRS Dur : 086 ms QT Int : 398 ms P-R-T Axes : 000 056 059 degrees QTc Int : 420 ms Atrial flutter with variable A-V block Abnormal ECG When compared with ECG of 09-NOV-2019 20:08, Vent. rate has decreased BY 38 BPM Nonspecific T wave abnormality no longer evident in Anterolateral leads Confirmed by JHON LOMELI, SMITA ([id number]), editor farm journal EDITH MENARD ([id number]) on 05/01/2020 1:58:18 PM Referred By: DR GUERRERO Confirmed By:SMITA FERREIRA MD
[2020-04-29] MEDS: Pregabalin 50 MG Capsule 100 MG PO (21:26)
[2020-04-29] MEDS: traZODone 50 MG Tablet 150 MG PO (21:26)
[2020-04-29] MEDS: Sotalol Hydrochloride 80 MG Tablet 120 MG PO (21:26)
[2020-04-29] MEDS: Atorvastatin Calcium 80 MG Tablet PO (21:28)
[2020-04-29] MEDS: Pramipexole Di-HCl 0.125 MG Tablet PO (21:28)
--- NOTE | 2020-04-29 21:30 | NURSING ---
Pt does not want Tylenol at this time. Pt states he has already had 4-5 Nitro today.
[2020-04-29] MEDS: Glucerna Shake 120 ML LIQUID PO (21:35)
[2020-04-29 23:16] LABS: Bedside Glucose 115 mg/dL (70-110)
[2020-04-30] VITALS (8 sets, daily range): BP systolic 111–125; BP diastolic 58–67; PULSE 73–93; RESP 11–19; TEMP 36.6; O2SAT 94–97
[2020-04-30] MEDS: Ipratropium/Albuterol Sulfate 3 ML AMPUL.NEB INHALATION ×2 (02:22→07:25)
--- NOTE | 2020-04-30 05:55 | EKG12_ITS ---
Test Reason : AM EKG Blood Pressure : / mmHG Vent. Rate : 076 BPM Atrial Rate : 304 BPM P-R Int : 000 ms QRS Dur : 084 ms QT Int : 420 ms P-R-T Axes : 102 068 084 degrees QTc Int : 472 ms Atrial flutter Abnormal ECG When compared with ECG of 29-APR-2020 20:33, MANUAL COMPARISON REQUIRED, DATA IS UNCONFIRMED Confirmed by JHON LOMELI, SMITA ([id number]), film and video editor EDITH MENARD ([id number]) on 05/01/2020 1:48:35 PM Referred By: DR GUERRERO Confirmed By:SMITA FERREIRA MD
[2020-04-30 06:08] LABS: Absolute Lymphocyte Count 1.73 X10^3/uL (0.83-4.51); Absolute Neutrophil Count 6.7 X10^3/uL (2.0-7.7); Basophil# 0.05 X10^3/uL; Basophil% 0.5 % (0-1); Eosinophil# 0.41 X10^3/uL; Eosinophils% 4.2 % (0-5); Hematocrit 43.3 % (40-54); Hemoglobin 12.5 g/dL (13.0-16.5); Lymphocyte # 1.73 X10^3/ul (4.0); Lymphocyte % 17.8 % (19-41); Mean Corp Hgb Conc 28.9 g/dL (32-36); Mean Corpuscular Hgb 26.9 pg (27.0-32.0); Mean Corpuscular Volume 93.1 fL (80-94); Mean Platelet Vol. 9.7 fl (6.2-12.0); Monocyte# 0.83 X10^3/uL; Monocyte% 8.5 % (0-10); NRBC Flagged by Analyzer 0 % (0-5); Neutrophil # 6.69 X10^3/uL (2.7-7.7); Neutrophil % 68.7 % (47-70); Platelet Count 190 K/mm3 (150-450); RBC Distribution Width CV 18.8 % (11.6-14.6); RBC Distribution Width SD 64.2 fl (35.1-43.9); Red Blood Count 4.65 M/mm3 (4.6-6.2); White Blood Count 9.7 K/mm3 (4.4-11.0)
[2020-04-30 06:27] LABS: Anion Gap 7 (5-15); BUN 9 mg/dL (7-18); BUN/Creat Ratio 9.7 RATIO (10-20); Calcium,Total 9.1 mg/dL (8.5-10.1); Chloride 107 mmol/L (98-107); Creatinine, Serum 0.93 mg/dL (0.70-1.30); EST Glomerular Filtration Rate 90 mL/min (>60); Est Glom Filt Rate - Afr Amer 109 mL/min (>60); Glucose 128 mg/dL (74-106); Potassium 4.3 mmol/L (3.5-5.1); Sodium Level 140 mmol/L (136-145)
[2020-04-30] MEDS: Gabapentin 600 MG Tablet PO (07:10)
[2020-04-30] MEDS: Aspirin 81 MG TAB.CHEW PO (07:10)
[2020-04-30] MEDS: Pregabalin 50 MG Capsule 100 MG PO (07:10)
[2020-04-30] MEDS: Clopidogrel Bisulfate 75 MG Tablet PO (07:10)
[2020-04-30] MEDS: Lisinopril 10 MG Tablet PO (07:11)
[2020-04-30] MEDS: Ketorolac 10 MG Tablet 20 MG PO (07:38)
--- NOTE | 2020-04-30 11:03 | PCA ---
pt off floor
--- NOTE | 2020-04-30 11:27 | STRESSREP ---
Stress Test Report Pharmacologic myocardial perfusion stress test. 54-year-old male with a history of coronary artery disease who presents with chest pain. Stress protocol: Resting EKG demonstrates atrial flutter with a rate of 81 bpm normal intervals are noted resting blood pressures 108/40 mmHg. 0.4 mg of regadenoson was infused per usual protocol followed by Intravenous saline flush injection continuous EKG monitoring was performed. The maximum heart rate attained was 86 bpm which was 51% of maximum predicted heart rate the maximum workload was 1 metabolic equivalent. At rest there were no ST or T wave changes noted to suggest abnormal flow reserve. At peak infusion nonspecific ST-T wave changes are noted. The resting blood pressure is 108/40 mmHg. Myocardial perfusion protocol. 12.0 mCi of technetium 99m sestamibi was injected at rest. 0.4 mg of regadenoson was infused per usual protocol. At peak infusion 36.0 mCi of technetium 99m sestamibi was injected stress images were obtained stress and rest images were reconstructed and compared in the short axis vertical long horizontal long axis. Gated images were also obtained. Perfusion SPECT analysis: Review of the stress images demonstrate normal uptake of tracer noted in all areas of the myocardium the resting images similar demonstrate normal uptake of tracer noted in all areas of the myocardium. No reversibility is noted to suggest ischemia. Gated SPECT analysis: The gated ejection fraction is 59%. Conclusion: Normal pharmacologic myocardial perfusion stress test. No ischemia noted. Preserved ejection fraction. Atrial flutter with a controlled response rate noted.
--- NOTE | 2020-04-30 11:32 | CON.PCM_ITS ---
Reason for Consult Date of Consultation: 04/30/20 Reason for Consultation: Chest discomfort History of Present Illness: The patient is a 54 year old M who presents to the emergency room for evaluation of his chest pain. He says this has been going on for a few weeks. He describes this as fairly constant. As you know he has had chest pain since his bypass surgery remotely. He does have a history of coronary artery disease status post coronary bypass surgery with a left internal mammary artery to the left anterior descending artery, and saphenous vein graft to obtuse marginal branch. He also has history of paroxysmal atrial fibrillation status post DC cardioversion, history of syncope status post implantable loop recorder implantation, hypertension, and peripheral vascular disease. He also continues to use tobacco and has a history of obstructive sleep apnea. He had been doing well otherwise until his recent presentation. He describes this as present most of the time nonradiating and no exacerbating or relieving factors. He does have some shortness of breath but does not have any paroxysmal nocturnal dyspnea or pedal edema. He was admitted to the hospital he ruled out for myocardial infarction cardiology was called for further evaluation and management. [] Past Medical History Allergies/Adverse Reactions: Allergies seasonal Allergy (Uncoded 04/29/20 16:48) SOB Home Medications: Ambulatory Orders Medication Instructions Recorded Gabapentin [Neurontin] 1,200 mg PO TIDCM 12/07/15 metFORMIN HCl [Glucophage] 1,000 mg PO BIDCM 12/07/15 duloxetine 60 mg capsule,delayed 60 mg PO DAILY 01/13/18 release ferrous sulfate 325 mg (65 mg 325 mg PO DAILY tab 11/26/18 iron) tablet lisinopril 10 mg tablet 10 mg PO DAILY #90 tab 06/30/19 Albuterol IH (ProAir) [Proair Hfa 2 puff INHALATION Q6H PRN PRN 11/09/19 (SP)Vent Pts] Albuterol Sulfate 1 dose IH Q4H PRN PRN 11/09/19 Nitroglycerin 0.4 mg SL PRN PRN 11/09/19 clopidogrel 75 mg tablet 75 mg PO DAILY #30 tab 11/11/19 furosemide 40 mg tablet 40 mg PO BID #60 tab 11/11/19 isosorbide mononitrate 120 mg 120 mg PO DAILY #30 tab 11/11/19 tablet,extended release 24 hr pantoprazole 40 mg tablet,delayed 40 mg PO DAILY 11/11/19 release pregabalin 100 mg capsule 100 mg PO TID cap 11/11/19 ropinirole 0.25 mg tablet 0.25 mg PO QHS 11/11/19 sotalol 120 mg tablet 120 mg PO BID #60 tab 11/11/19 tiotropium 2.5 mcg-olodaterol 2.5 2 puff INHALATION DAILY 11/11/19 mcg/actuation mist for inhalation trazodone 150 mg tablet 150 mg PO DAILY 11/11/19 Atorvastatin Calcium [Lipitor] 80 mg PO QHS 04/30/20 Loratadine 10 mg PO DAILY 04/30/20 Metoprolol Succinate 50 mg PO DAILY 04/30/20 Past Medical History (Chronic Problems): Chronic Problems (Last Reviewed 12/13/19 @ 12:52 by Alina Hong) Smoking greater than 40 pack years (Chronic) PAD (peripheral artery disease) (Chronic) CAD (coronary artery disease) (Chronic) Hx of CABG (Chronic) CABG X 3 vessels, CARTER to LAD, SVG to OM1, SVG to OM3 11/03 History of open reduction and internal fixation (ORIF) procedure (Chronic) Left lower extremity Typical atrial flutter (Chronic) Other specified cardiac device in situ (Chronic) Presence of coronary angioplasty implant and graft (Chronic) February 2005 IVUS of LAD, May 2005 PTCA & ALBAN X 3 to 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 [place] Paroxysmal atrial fibrillation (Chronic) Diabetes mellitus (Chronic) Hypertension (Chronic) Hyperlipidemia (Chronic) Nicotine abuse (Chronic) Surgical History: coronary bypass surgery Psychiatric History: Depression - *Family History Maternal Family History: Family History (Last Reviewed 04/29/20 @ 20:[address] Fadia Starkey MD) Father CAD (coronary artery disease) COPD (chronic obstructive pulmonary disease) CHF (congestive heart failure) Mother COPD (chronic obstructive pulmonary disease) History Items: No pertinent history Paternal Family History: Family History (Last Reviewed 04/29/20 @ 20:[address] Fadai Starkey MD) Father CAD (coronary artery disease) COPD (chronic obstructive pulmonary disease) CHF (congestive heart failure) Mother COPD (chronic obstructive pulmonary disease) History Items: No pertinent history Lives: With Family Smoking Status: Current every day smoker Tobacco Use: Cigarettes Alcohol: None Drugs: None Review of Systems - Review of Systems General: Denies: Fever, Night Sweats, Fatigue HEENT: Denies: Vision Change Cardiovascular: Reports: Chest Discomfort. Denies: Shortness of Breath, Orthopnea, PND, Peripheral Edema, Palpitations, Lightheadedness, Dizziness, Near Syncope, Syncope Respiratory: Denies: Cough, Sputum Production, Hemoptysis Gastrointestinal: Denies: Hematemesis, Hematochezia, Melena Genitourinary: Denies: Dysuria, Hematuria Skin: Denies: Rash Neurological: Denies: Dizziness Psychiatric: Reports: Anxiety Endocrine: Denies: Heat Intolerance Hematologic/ Lymphatic: Denies: Anemia Subjectve: Pleasant gentleman in no distress at this time Objective: Vital Signs Temp Pulse Resp BP Pulse Ox 97.9 F 76 18 119/67 96 04/30/20 06:58 04/30/20 07:26 04/30/20 07:26 04/30/20 06:58 04/30/20 07:26 Oxygen Flow Rate (L/min) 4 Oxygen Delivery Method Nasal Cannula Weight: 201 lb 0.985 oz Body Mass Index (BMI) 29.7 Finger Stick Blood Glucose 198 Intake and Output for Last 24 Hours 04/28/20 04/29/20 04/30/20 23:59 23:59 23:59 Intake Total 1180 / 1180 0 / 0 Output Total 750 / 750 450 / 450 Balance 430 / 430 -450 / -450 General: Awake, Alert, Oriented x 3 HEENT: PERRL, EOMI, Sclera Non Icteric Neck: Supple, Good ROM, No Lymph Node Enlargement Lungs: Clear to auscultation Cardiovascular: Irregular Rhythm, Normal S1, Normal S2, No Murmurs, No Rubs, No Gallops Vascular: No Carotid Bruits, Normal Femoral Pulses, Normal Radial Pulses, Normal Dorsalis Pedal Pulse, Normal Posterior Tibial Pulses Abdomen: Bowel Sounds Present, Soft, Non Tender, No HSM, No Organomegaly Extremities: No Cyanosis, No Clubbing, No edema Musculoskeletal: No Erythema Skin: No Rashes Lymphatic: No Lymph Node Enlargement Neurological: No Focal Motor or Sensory Deficit 04/29/20 16:50: WBC 13.8 H, RBC 5.06, Hgb 14.3, Hct 46.2, MCV 91.3, MCH 28.3, MCHC 31.0 L, Plt Count 197, MPV 10.1, Immature Gran % (Auto) 0.300, Neut % (Auto) 76.1 H, Lymph % (Auto) 14.6 L, [place] % (Auto) 7.2, Eos % (Auto) 1.4, Baso % (Auto) 0.4, Absolute Neuts (auto) 10.5 H, Nucleated RBC % 0 04/29/20 16:50: D-Dimer Quant (PE/DVT) 0.82 H* 04/29/20 16:50: Sodium 139, Potassium 3.7, Chloride 105, Carbon Dioxide 26.0, Anion Gap 8, BUN 8, Creatinine 1.05, Est GFR (MDRD) Af Amer 95, Est GFR (MDRD) Non-Af 78, BUN/Creatinine Ratio 7.6 L, Glucose 124 H, Calcium 9.8, Troponin I 0.015 04/29/20 20:10: Troponin I 0.018 04/29/20 22:40: Troponin I 0.016 04/30/20 05:46: Sodium 140, Potassium 4.3, Chloride 107, Carbon Dioxide 26.0, Anion Gap 7, BUN 9, Creatinine 0.93, Est GFR (MDRD) Af Amer 109, Est GFR (MDRD) Non-Af 90, BUN/Creatinine Ratio 9.7 L, Glucose 128 H, Calcium 9.1 04/30/20 05:46: WBC 9.7, RBC 4.65, Hgb 12.5 L, Hct 43.3, MCV 93.1, MCH 26.9 L, MCHC 28.9 L D, Plt Count 190, MPV 9.7, Immature Gran % (Auto) 0.300, Neut % (Auto) 68.7, Lymph % (Auto) 17.8 L, [place] % (Auto) 8.5, Eos % (Auto) 4.2, Baso % (Auto) 0.5, Absolute Neuts (auto) 6.7, Nucleated RBC % 0 Rhythm: EKG: Atrial fibrillation flutter with a controlled ventricular response rate ECHO: Estimated ejection fraction of 55% from 2019. Pulmonary systolic pressure was 47 mmHg. Stress Test: Cardiac Cath: PCI: CT Surgery: Holter monitor: EPS: PPM: CXR: Chest CT Scan: Assessment/Plan 1. Chest pain. Patient has a known history of coronary artery disease and is status post previous bypass surgery. His chest discomfort appears to be somewhat atypical. He underwent a stress test this morning which did not demonstrate any evidence of ischemia. Based on the above I would recommend continued aggressive medical therapy. Smoking cessation. * If he continues to have chest discomfort then we may consider reevaluating his coronary anatomy. * Would recommend the addition of isosorbide 30 mg a day and for outpatient follow-up 2. Atrial fibrillation flutter * His ventricular response rate is controlled and I would recommend continuing his current medication and his beta-jessie as well. * His ejection fraction was preserved from a year ago and I do not think there is a reason to repeat this. * 3. Hypertension * Good control * Plan is to continue the current medical therapy with no changes * He will also continue with risk factor modification. He remains on high intensity statin. No changes will be made.
[2020-04-30 11:35] LABS: Bedside Glucose 124 mg/dL (70-110)
--- NOTE | 2020-04-30 11:50 | DCINST_ITS ---
- Discharge Diagnoses Current Active Problems: Current Active and Chronic Problems (Last Reviewed 12/13/19 @ 12:52 by Alina Hong) Chest pain (Acute) You will use the following diet at home:: Cardiac Your food should be the consistency of: Regular Your liquids should be the consistency of: Regular/Thin Discharge Activity: Return to Normal Activity Weight Bearing Status: Weight bearing as tolerated Call your doctor if you observe: Shortness of breath, Swelling in the ankles, Chest pain, Increased palpitations (irregular heartbeat) Instructions: Recognizing a Heart Attack or Angina, Warning Signs of a Heart Attack, What Is Angina? Allergies/Adverse Reactions: Allergies seasonal Allergy (Uncoded 04/29/20 16:48) SOB Medications to take at Discharge Gabapentin [Neurontin] 1,200 mg PO TIDCM 12/07/15 metFORMIN HCl [Glucophage] 1,000 mg PO BIDCM 12/07/15 duloxetine 60 mg capsule,delayed release 60 mg PO DAILY 01/13/18 ferrous sulfate 325 mg (65 mg iron) tablet 325 mg PO DAILY tab 11/26/18 lisinopril 10 mg tablet 10 mg PO DAILY #90 tab 06/30/19 Albuterol IH (ProAir) [Proair Hfa] 2 puff INHALATION Q6H PRN PRN 11/09/19 Albuterol Sulfate 1 dose IH Q4H PRN PRN 11/09/19 Nitroglycerin 0.4 mg SL PRN PRN 11/09/19 clopidogrel 75 mg tablet 75 mg PO DAILY #30 tab 11/11/19 furosemide 40 mg tablet 40 mg PO BID #60 tab 11/11/19 isosorbide mononitrate 120 mg tablet,extended release 24 hr 120 mg PO DAILY #30 tab 11/11/19 pantoprazole 40 mg tablet,delayed release 40 mg PO DAILY 11/11/19 pregabalin 100 mg capsule 100 mg PO TID cap 11/11/19 ropinirole 0.25 mg tablet 0.25 mg PO QHS 11/11/19 sotalol 120 mg tablet 120 mg PO BID #60 tab 11/11/19 tiotropium 2.5 mcg-olodaterol 2.5 mcg/actuation mist for inhalation 2 puff INHALATION DAILY 11/11/19 trazodone 150 mg tablet 150 mg PO DAILY 11/11/19 Atorvastatin Calcium [Lipitor] 80 mg PO QHS 04/30/20 Loratadine 10 mg PO DAILY 04/30/20 Metoprolol Succinate 50 mg PO DAILY 04/30/20 Primary Care Physician: Blaze Louis MD [Primary Care Provider] - Please follow up with your Primary Care Physician in: 1-2 weeks Test Results: Test results from this visit will be discussed in further detail at your follow- up appointment, if applicable. Please Follow Up With: Junito Swift MD When: 1-2 weeks
[2020-04-30] MEDS: Furosemide 40 MG Tablet PO (11:59)
[2020-04-30] MEDS: Pantoprazole Sodium 40 MG Tablet PO (11:59)
[2020-04-30] MEDS: DULoxetine Hcl 60 MG Capsule PO (11:59)
[2020-04-30] MEDS: Ezetimibe 10 MG Tablet PO (11:59)
[2020-04-30] MEDS: Ferrous Sulfate 325 MG Tablet PO (11:59)
[2020-04-30] MEDS: Sotalol Hydrochloride 80 MG Tablet 120 MG PO (11:59)
--- NOTE | 2020-04-30 11:59 | DS.PCM_ITS ---
Discharge Date and Diagnosis Date of Admission: 04/29/20 Date of Discharge: 04/30/20 - Primary Discharge Diagnosis Acute Problems: Active Problems (Last Reviewed 12/13/19 @ 12:52 by Alina Hong) Chest pain (Acute) - Secondary Discharge Diagnosis Chronic Problems: Chronic Problems (Last Reviewed 12/13/19 @ 12:52 by Alina Hong) Smoking greater than 40 pack years (Chronic) PAD (peripheral artery disease) (Chronic) CAD (coronary artery disease) (Chronic) Hx of CABG (Chronic) CABG X 3 vessels, CARTER to LAD, SVG to OM1, SVG to OM3 11/03 History of open reduction and internal fixation (ORIF) procedure (Chronic) Left lower extremity Typical atrial flutter (Chronic) Other specified cardiac device in situ (Chronic) Presence of coronary angioplasty implant and graft (Chronic) February 2005 IVUS of LAD, May 2005 PTCA & ALBAN X 3 to 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 [place] Paroxysmal atrial fibrillation (Chronic) Diabetes mellitus (Chronic) Hypertension (Chronic) Hyperlipidemia (Chronic) Nicotine abuse (Chronic) Hospital Course and Treatment Imaging Results: 04/30/20 05:55 Nuclear Stress Test - Chemical [NM] AM (NON MEDS) Diagnostic Data Chest X-Ray 04/29/20 17:10 IMPRESSION: No acute thoracic pathology. Electronically Signed: Andres Sheridan, at 17:33 EDT Tel , Service support , Chest CTA 04/29/20 17:45 IMPRESSION: No evidence of pulmonary embolus. No evidence of thoracic aortic aneurysm or dissection. Small right pleural effusion with overlying atelectasis. No pulmonary infiltrates. Mediastinal lymphadenopathy. 3.7 x 2.3 cm indeterminate right adrenal nodule. Electronically Signed: Andres Sheridan, at 18:47 EDT Tel , Service support , Abdomen/Pelvis CT 04/29/20 19:56 IMPRESSION: Stable right adrenal nodule since prior CT dated November 09, 2019 which may reflect an underlying adenoma, as precautionary measure consider MRI with contrast for further characterization. Atherosclerosis. Left renal cyst. Stable prominent and borderline enlarged retroperitoneal lymph nodes. Small right pleural effusion associated with minimal dependent consolidation within the right lower lobe. Electronically Signed: Pao Watkins MD at 21:39 EDT Tel , Service support , cardiology- Dr Swift Operations: None Procedures: Nuclear stress test Summary of Care Provided: The patient is a 54 year old M with an extensive past medical history as outlined was admitted through the ED on 04/29/2020 with a complaint of chest pain which started on the night before admission and he rated it a 10 out of 10, sharp, left-sided and radiated to the left shoulder with associated dizziness but no aggravating or relieving factors. Patient has had a history of chronic chest pain since his CABG that the pain was getting worse. In the ED, heart rate was 100 and blood pressure was slightly elevated but vitals were otherwise stable. D-dimer was elevated and CTA of the chest done was negative for any PE but did show a small right pleural effusion with a right adrenal nodule. EKG showed A. fib with heart rate of around 105. He was admitted to be managed for chest pain rule out ACS and incidental finding of right adrenal nodule. Troponins x3 were negative. Nuclear stress test which was normal and showed no evidence of ischemia and showed preserved ejection fraction and atrial flutter with controlled response noted. Of note, he had abdominal pelvic CT without contrast to further delineate the right abdominal nodule and it showed a stable 2.5 x 3.9 cm low-attenuation right adrenal nodule with Hounsfield units of 26, unchanged in size and appearance since the prior CT dated November 09, 2019. I did family and marriage counsellor patient that he will need to follow-up with his primary care doctor and be referred to an state federal relations deputy director as well on account of the adrenal nodule. Further work-up will be as determined by his primary care doctor and state federal relations deputy director. Patient seen and examined prior to discharge. He had no complaints. Review systems otherwise negative. Labs and vitals reviewed. Home medication reviewed and reconciled. o/e: Vital Signs Temp Pulse Resp BP Pulse Ox 97.8 F 73 14 111/59 L 95 04/30/20 11:53 04/30/20 13:08 04/30/20 11:53 04/30/20 11:53 04/30/20 11:53 [] General: Alert, Oriented x3, Cooperative, No apparent distress HEENT: Atraumatic, PERRLA, EOMI, Normocephalic Oral: Moist Mucosa, No Gingival or Mucosal Lesions/ Ulcerations Neck: Supple, No JVD, Negative Carotid Bruits, Trachea Midline, Lungs: Clear to auscultation, Normal air movement, No rhonchi, No wheeze, No rales; on 3L of oxygen, which is his baseline at home Cardiovascular: Regular rate, Regular Rhythm, Normal S1, Normal S2, No murmurs Abdomen: Bowel Sounds Present, Soft, Non Tender, Non-Distended, No Hepato- splenomegaly Extremities: No clubbing, No cyanosis, No edema Skin: No rashes, No breakdown Lymphatic: No Cervical, Supraclavicular, or Inguinal Adenopathy Neurological: Cranial nerves II-XII grossly intact, Motor Exam 5/5 strength throughout Psych/Mental Status: Normal Affect, Appropriate, Alert and oriented to time, place, person, mood and affect Plan is for discharge home today. As noted, he is to follow-up with his primary care doctor and has been referred to Dr. Eduard Julian endocrinology for further work-up of his right adrenal nodule. - Physical Exam Vitals/I&O's: Vital Signs Temp Pulse Resp BP Pulse Ox 97.8 F 73 14 111/59 L 95 04/30/20 11:53 04/30/20 11:53 04/30/20 11:53 04/30/20 11:53 04/30/20 11:53 Oxygen Flow Rate (L/min) 3 Oxygen Delivery Method Nasal Cannula Weight: 201 lb 0.985 oz Body Mass Index (BMI) 29.7 Finger Stick Blood Glucose 198 Intake and Output for Last 24 Hours 04/28/20 04/29/20 04/30/20 23:59 23:59 23:59 Intake Total 1180 / 1180 0 / 0 Output Total 750 / 750 450 / 450 Balance 430 / 430 -450 / -450 Laboratory Results 04/29/20 16:50: WBC 13.8 H, RBC 5.06, Hgb 14.3, Hct 46.2, MCV 91.3, MCH 28.3, MCHC 31.0 L, RDW Std Deviation 60.8 H, RDW Coeff of Arleen 18.8 H, Plt Count 197, MPV 10.1, Immature Gran % (Auto) 0.300, Neut % (Auto) 76.1 H, Lymph % (Auto) 14.6 L, [place] % (Auto) 7.2, Eos % (Auto) 1.4, Baso % (Auto) 0.4, Absolute Neuts (auto) 10.5 H, Absolute Lymphs (auto) 2.01, Nucleated RBC % 0 04/29/20 16:50: D-Dimer Quant (PE/DVT) 0.82 H* 04/29/20 16:50: Sodium 139, Potassium 3.7, Chloride 105, Carbon Dioxide 26.0, Anion Gap 8, BUN 8, Creatinine 1.05, Estim Creat Clear Calc 80.43, Est GFR (MDRD) Af Amer 95, Est GFR (MDRD) Non-Af 78, BUN/Creatinine Ratio 7.6 L, Glucose 124 H, Calcium 9.8, Troponin I 0.015 04/29/20 20:10: Troponin I 0.018 04/29/20 20:59: POC Glucose 115 H 04/29/20 21:17: Aldosterone Pending 04/29/20 21:17: Cortisol 4.90 04/29/20 21:17: Renin Pending 04/29/20 22:40: Troponin I 0.016 04/30/20 05:46: Sodium 140, Potassium 4.3, Chloride 107, Carbon Dioxide 26.0, Anion Gap 7, BUN 9, Creatinine 0.93, Estim Creat Clear Calc 90.80, Est GFR (MDRD) Af Amer 109, Est GFR (MDRD) Non-Af 90, BUN/Creatinine Ratio 9.7 L, Glucose 128 H, Calcium 9.1 04/30/20 05:46: WBC 9.7, RBC 4.65, Hgb 12.5 L, Hct 43.3, MCV 93.1, MCH 26.9 L, MCHC 28.9 L D, RDW Std Deviation 64.2 H, RDW Coeff of Arleen 18.8 H, Plt Count 190, MPV 9.7, Immature Gran % (Auto) 0.300, Neut % (Auto) 68.7, Lymph % (Auto) 17.8 L, [place] % (Auto) 8.5, Eos % (Auto) 4.2, Baso % (Auto) 0.5, Absolute Neuts (auto) 6.7, Absolute Lymphs (auto) 1.73, Nucleated RBC % 0 04/30/20 06:58: POC Glucose 124 H Current Medications Acetaminophen (Tylenol) 650 mg PO Q6H PRN PRN PRN Reason: Pain Score 1-10/Temp > 100.7 F Albuterol Sulfate (Ventolin Aerosols) 2.5 mg INHALATION Q2H PRN PRN PRN Reason: Shortness of breath, wheezing Albuterol/Ipratropium (Duoneb) 3 ml INHALATION Q6H.RT [facility] Last Admin: 04/30/20 07:25 Dose: 3 ml Documented by: Aspirin (Aspirin, Baby) 81 mg PO DAILYCM [facility] Last Admin: 04/30/20 07:10 Dose: 81 mg Documented by: Atorvastatin Calcium (Lipitor) 80 mg PO DAILY@2200 [facility] Last Admin: 04/29/20 21:28 Dose: 80 mg Documented by: Clopidogrel Bisulfate (Plavix) 75 mg PO DAILY [facility] Last Admin: 04/30/20 07:10 Dose: 75 mg Documented by: Dextrose (D50w Syringe) 0 gm IV X1 PRN; Protocol PRN Reason: Hypoglycemia Duloxetine HCl (Cymbalta) 60 mg PO DAILY [facility] Ezetimibe (Zetia) 10 mg PO DAILY [facility] Enoxaparin Sodium (Lovenox) 40 mg SC DAILY [facility] Ferrous Sulf[facility] ([facility]ous [facility]) [facility] Furosemide (Lasix) 40 mg PO BIDLX [facility] Gabapentin (Neurontin) 600 mg PO TIDCM [facility] Last Admin: 04/30/20 07:10 Dose: 600 mg Documented by: Glucagon () 1 mg IM .X1 PRN PRN Reason: Hypoglycemia Sodium Chloride () 250 mls @ 15 mls/hr IV .[id number] PRN PRN Reason: Saline Flush Sodium Chloride () 250 mls @ 15 mls/hr IV .[id number] PRN PRN Reason: Additional IVPB Infusion Insulin Human Lispro (Humalog Kwmarthapen (Bkc)) 0 unit SC ACHS [facility]; Protocol Last Admin: 04/30/20 07:01 Dose: Not Given Documented by: Isosorbide Mononitrate (Imdur) 120 mg PO DAILY [facility] Isosorbide Mononitrate (Imdur) 30 mg PO DAILY [facility] Lisinopril (Zestril) 10 mg PO DAILY [facility] Last Admin: 04/30/20 07:11 Dose: 10 mg Documented by: Lorazepam (Ativan) 1 mg PO TID PRN PRN PRN Reason: ANXIETY Metoprolol Succinate (Toprol Xl (Beta Amol)) 100 mg PO DAILY [facility] Nitroglycerin (Nitrostat) 0.4 mg SUBLINGUAL Q5M PRN PRN Reason: CARDIAC/CHEST PAIN Nutritional Formula (Lactose Free) (Glucerna Shake) 120 ml PO 4X/DAY [facility] Last Admin: 04/30/20 11:56 Dose: Not Given Documented by: Ondansetron HCl (Zofran) 4 mg IV Q8H PRN PRN PRN Reason: NAUSEA/VOMITING Pantoprazole Sodium (Protonix) 40 mg PO DAILY [facility] Pramipexole Dihydrochloride (Mirapex) 0.125 mg PO QHS [facility] Last Admin: 04/29/20 21:28 Dose: 0.125 mg Documented by: Pregabalin (Lyrica) 100 mg PO TID [facility] Last Admin: 04/30/20 07:10 Dose: 100 mg Documented by: Senna/Docusate Sodium (Senokot-S, Jessica-Colace) 2 tablet PO BID PRN PRN PRN Reason: Constipation Sodium Chloride () 10 - 40 ml IV UD PRN PRN Reason: SALINE FLUSH Sotalol HCl (Betapace (G)) 120 mg PO BID [facility] Last Admin: 04/29/20 21:26 Dose: 120 mg Documented by: Trazodone HCl (Desyrel) 150 mg PO DAILY@2200 [facility] Last Admin: 04/29/20 21:26 Dose: 150 mg Documented by: Zolpidem Tartrate (Ambien (Generic)) 5 mg PO QHS PRN PRN PRN Reason: INSOMNIA Discharge Diet: Low fat/ Low Cholesterol Discharge Activity: Return to Normal Activity Weight Bearing Status: Weight bearing as tolerated Call your doctor if you observe: Shortness of breath, Swelling in the ankles, Chest pain, Increased palpitations (irregular heartbeat) Home Medications: Medications to take at Discharge Gabapentin [Neurontin] 1,200 mg PO TIDCM 12/07/15 metFORMIN HCl [Glucophage] 1,000 mg PO BIDCM 12/07/15 duloxetine 60 mg capsule,delayed release 60 mg PO DAILY 01/13/18 ferrous sulfate 325 mg (65 mg iron) tablet 325 mg PO DAILY tab 11/26/18 lisinopril 10 mg tablet 10 mg PO DAILY #90 tab 06/30/19 Albuterol IH (ProAir) [Proair Hfa] 2 puff INHALATION Q6H PRN PRN 11/09/19 Albuterol Sulfate 1 dose IH Q4H PRN PRN 11/09/19 Nitroglycerin 0.4 mg SL PRN PRN 11/09/19 clopidogrel 75 mg tablet 75 mg PO DAILY #30 tab 11/11/19 furosemide 40 mg tablet 40 mg PO BID #60 tab 11/11/19 isosorbide mononitrate 120 mg tablet,extended release 24 hr 120 mg PO DAILY #30 tab 11/11/19 pantoprazole 40 mg tablet,delayed release 40 mg PO DAILY 11/11/19 pregabalin 100 mg capsule 100 mg PO TID cap 11/11/19 ropinirole 0.25 mg tablet 0.25 mg PO QHS 11/11/19 sotalol 120 mg tablet 120 mg PO BID #60 tab 11/11/19 tiotropium 2.5 mcg-olodaterol 2.5 mcg/actuation mist for inhalation 2 puff INHALATION DAILY 11/11/19 trazodone 150 mg tablet 150 mg PO DAILY 11/11/19 Atorvastatin Calcium [Lipitor] 80 mg PO QHS 04/30/20 Loratadine 10 mg PO DAILY 04/30/20 Metoprolol Succinate 50 mg PO DAILY 04/30/20 Primary Care Physician: Blaze Louis MD [Primary Care Provider] - Please follow up with your Primary Care Physician in: 1-2 weeks Please Follow Up With: Junito Swift MD When: 1-2 weeks Please Follow Up With: Eduard Julian MD When: 1-2 weeks o/a of adrenal nodule Patient Instructions: What Is Angina?, Recognizing a Heart Attack or Angina, Warning Signs of a Heart Attack Disposition: Home Minutes spent on discharge:: 45 Patient Condition:: Stable Medical Necessity - Tobacco Use Smoking Status: Current every day smoker Tobacco Use: Cigarettes Meaningful Use Info Meaningful Use Diagnoses (Choose all that apply): None applicable OBSV E&M: 99874 Observation care discharge
[2020-04-30] MEDS: Enoxaparin 40 MG/0.4 ML Syringe SC (12:00)
[2020-04-30 12:10] LABS: Bedside Glucose 128 mg/dL (70-110)
--- NOTE | 2020-04-30 12:15 | PHA.DC.MR ---
Pharmacy Service has performed discharge medication reconciliation for this patient. The patient's discharge medication list was reviewed for discrepancies and discrepancies were resolved. Home Medications Gabapentin [Neurontin] 1,200 mg PO TIDCM 12/07/15 metFORMIN HCl [Glucophage] 1,000 mg PO BIDCM 12/07/15 duloxetine 60 mg capsule,delayed release 60 mg PO DAILY 01/13/18 ferrous sulfate 325 mg (65 mg iron) tablet 325 mg PO DAILY tab 11/26/18 lisinopril 10 mg tablet 10 mg PO DAILY #90 tab 06/30/19 Albuterol IH (ProAir) [Proair Hfa] 2 puff INHALATION Q6H PRN PRN 11/09/19 Albuterol Sulfate 1 dose IH Q4H PRN PRN 11/09/19 Nitroglycerin 0.4 mg SL PRN PRN 11/09/19 clopidogrel 75 mg tablet 75 mg PO DAILY #30 tab 11/11/19 furosemide 40 mg tablet 40 mg PO BID #60 tab 11/11/19 isosorbide mononitrate 120 mg tablet,extended release 24 hr 120 mg PO DAILY #30 tab 11/11/19 pantoprazole 40 mg tablet,delayed release 40 mg PO DAILY 11/11/19 pregabalin 100 mg capsule 100 mg PO TID cap 11/11/19 ropinirole 0.25 mg tablet 0.25 mg PO QHS 11/11/19 sotalol 120 mg tablet 120 mg PO BID #60 tab 11/11/19 tiotropium 2.5 mcg-olodaterol 2.5 mcg/actuation mist for inhalation 2 puff INHALATION DAILY 11/11/19 trazodone 150 mg tablet 150 mg PO DAILY 11/11/19 Atorvastatin Calcium [Lipitor] 80 mg PO QHS 04/30/20 Loratadine 10 mg PO DAILY 04/30/20 Metoprolol Succinate 50 mg PO DAILY 04/30/20
[2020-04-30] MEDS: Gabapentin 600 MG Tablet 1200 MG PO (13:08)
[2020-04-30] MEDS: Metoprolol(XL)Succ 50 MG Tablet PO (13:08)
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
[2020-05-08 00:59] LABS: Aldosterone, Serum 3.9 ng/dL (0.0-30.0)
[2021-02-14 11:29] LABS: Renin, Plasma 3.751 ng/mL/hr (0.167-5.380)
== END 2020-04-30 11:56 | disposition home or self-care (01) ==
LOC: ED 19:12 → PCU 04-30 03:54
PROVIDERS: Admitting Provider Hospitalist; Emergency Provider Emergency Medicine; PCP Family Medicine; Visit Provider Student in an Organized Health Care Education/Training Program
DX: R07.89 Other chest pain (principal); I25.2 Old myocardial infarction; I25.10 Atherosclerotic heart disease of native coronary artery without angina pectoris; I48.0 Paroxysmal atrial fibrillation; E11.51 Type 2 diabetes mellitus with diabetic peripheral angiopathy without gangrene; I10 Essential (primary) hypertension; E78.5 Hyperlipidemia, unspecified; I48.92 Unspecified atrial flutter; R06.02 Shortness of breath; G47.33 Obstructive sleep apnea (adult) (pediatric); J44.9 Chronic obstructive pulmonary disease, unspecified; F17.210 Nicotine dependence, cigarettes, uncomplicated; Z95.1 Presence of aortocoronary bypass graft; Z79.899 Other long term (current) drug therapy; Z79.82 Long term (current) use of aspirin; Z79.02 Long term (current) use of antithrombotics/antiplatelets; R22.2 Localized swelling, mass and lump, trunk; F32.9 Major depressive disorder, single episode, unspecified
CPT/HCPCS: 36415; 71045; 71275; 74176; 78452; 80048; 82088; 82533; 82962; 84244; 84484; 85025; 85379; 93005; 93017; 94640; 96361; 96372; 96374; 96375; 99218; 99251; 99285; 99406; A9500; J7030; Q9967; A4216; G0378; G0463; J2405; J2785

== ENCOUNTER → 2020-05-30 09:36 | Outpatient (CLI) | payer MEDICAID, SELFPAY ==
[2020-05-24 15:31] VITALS: BMI 28.0
[2020-05-30 12:36] LABS: Absolute Lymphocyte Count 2.04 X10^3/uL (0.83-4.51); Absolute Neutrophil Count 7.9 X10^3/uL (2.0-7.7); Basophil% 0.9 % (0-1); Eosinophil# 0.44 X10^3/uL; Eosinophils% 3.8 % (0-5); Hematocrit 47.3 % (40-54); Hemoglobin 14.3 g/dL (13.0-16.5); Lymphocyte # 2.04 X10^3/ul (4.0); Lymphocyte % 17.6 % (19-41); Mean Corp Hgb Conc 30.2 g/dL (32-36); Mean Corpuscular Volume 92.7 fL (80-94); Monocyte# 1.12 X10^3/uL; Monocyte% 9.6 % (0-10); NRBC Flagged by Analyzer 0 % (0-5); Neutrophil # 7.85 X10^3/uL (2.7-7.7); Neutrophil % 67.5 % (47-70); Platelet Count 219 K/mm3 (150-450); RBC Distribution Width CV 17.9 % (11.6-14.6); RBC Distribution Width SD 58.6 fl (35.1-43.9); White Blood Count 11.6 K/mm3 (4.4-11.0)
[2020-05-30 12:54] LABS: Vitamin B12 342 pg/mL (211-911); Vitamin D,25 Hydroxy 43.5 ng/mL
[2020-05-30 12:59] LABS: Hemoglobin A1c 6.3 % (3.8-5.6)
[2020-05-30 13:03] LABS: ALB/GLOB Ratio 0.8 RATIO (0.9-2.4); AST(SGOT) 17 U/L (15-37); Alanine Aminotransfer ALT/SGPT 24 U/L (16-61); Albumin, Serum 3.4 g/dL (3.2-5.0); Alkaline Phosphatase 91 U/L (45-117); Anion Gap 8 (5-15); BUN 13 mg/dL (7-18); BUN/Creat Ratio 12.4 RATIO (10-20); Calcium,Total 9.2 mg/dL (8.5-10.1); Chloride 99 mmol/L (98-107); Cholesterol 138 mg/dL (200); Creatinine, Serum 1.05 mg/dL (0.70-1.30); EST Glomerular Filtration Rate 78 mL/min (>60); Est Glom Filt Rate - Afr Amer 94 mL/min (>60); Ferritin 30 ng/mL (26-388); Glucose 141 mg/dL (74-106); High Density Lipoprotein 37 mg/dL; Iron 60 ug/dL (65-175); Iron Binding Capacity,Total 372 ug/dL (250-450); Potassium 4.1 mmol/L (3.5-5.1); Protein, Total 7.4 g/dL (6.4-8.2); Sodium Level 133 mmol/L (136-145); Triglycerides 178 mg/dL; Very Low Density Lipoprotein 36 mg/dL (5-40)
[2020-05-30 17:59] LABS: Microalbumin,Random Urine 8.7 mg/L (NO RANGE EST.); Microalbumin:Creatinine Ratio 26.7 mg/g CRE (<30 mg/g CRE)
[2020-06-03 23:44] LABS: Vitamin B1, Thiamine 174.8 nmol/L (66.5-200.0)
== END ==
PROVIDERS: PCP Family Medicine; Visit Provider Family Medicine
DX: E11.9 Type 2 diabetes mellitus without complications (principal); E78.5 Hyperlipidemia, unspecified; E72.20 Disorder of urea cycle metabolism, unspecified; E61.1 Iron deficiency; E53.9 Vitamin B deficiency, unspecified; E55.9 Vitamin D deficiency, unspecified
CPT/HCPCS: 36415; 80053; 80061; 82043; 82140; 82306; 82570; 82607; 82728; 83036; 83540; 83550; 84425; 85025

== ENCOUNTER → 2020-06-11 13:44 | Outpatient (CLI) | payer MEDICAID, SELFPAY ==
[2020-05-24 15:31] VITALS: BMI 28.0
--- NOTE | 2020-06-11 13:48 | RAD_ITS ---
STUDY: X-RAY - LUMBAR SPINE REASON FOR EXAM: Male, 54 years old. LOWER BACK PAIN RADIATING INTO BOTH LEGS. HX OF INJURYS PER PATIENT. TECHNIQUE: 3 view(s) of the lumbar spine were obtained. COMPARISON: None FINDINGS: Normal lumbar lordosis. There is no substantial scoliosis. There is a normal alignment of the vertebrae. There is mild diffuse endplate spondylosis of the lumbar spine. There is severe narrowing of the L4-5 and L5-S1 disc spaces with vacuum phenomenon. There is mild narrowing of the L3-4 disc space. There are calcified plaques of the abdominal aorta and common iliac arteries. RAD/Lumbar Spine 2 or 3 Views IMPRESSION: Degenerative changes of the spine, as detailed above. Calcified plaques of the abdominal aorta and common iliac arteries. There is no evidence of fracture or spondylolisthesis. Electronically Signed: Rick Lui MD at 23:59 EDT , Service support ,
== END ==
PROVIDERS: PCP Family Medicine; Referring Provider Anesthesiology Pain Medicine; Visit Provider Anesthesiology Pain Medicine
DX: M54.9 Dorsalgia, unspecified (principal)
CPT/HCPCS: 72100

== ENCOUNTER → 2020-06-27 08:52 | Outpatient (CLI) | payer MEDICAID, SELFPAY ==
[2020-05-24 15:31] VITALS: BMI 28.0
--- NOTE | 2020-06-27 08:58 | AAVD_ITS ---
Reason For Study: s/p LLE thrombolysis Aorta Measurements Aorta Doppler Measurements Proximal aorta measures1.71cm x 1.67cm. in cross- Peak systolic flow velocities within the proximal sectional axis. aorta measure 83 cm/sec. Proximal aorta measures1.60cm. in longitudinal Peak systolic flow velocities within the mid aorta axis. measure 51 cm/sec. Mid aorta measures1.65cm x 1.63cm. in cross- Peak systolic flow velocities within the distal sectional axis. aorta measure 58 cm/sec. Mid aorta measures1.53cm. in longitudinal axis. Distal aorta measures1.45cm x 1.52cm. in cross- sectional axis. Distal aorta measures1.46cm. in longitudinal axis. Left Iliac Artery Left iliac artery measures 0.91cm x 0.94 cm. in the cross-sectional axis. Left iliac artery measures 0.99 cm. in the longitudinal axis. Peak systolic velocity in the left iliac artery measures 69 cm/sec. Right Iliac Artery Right iliac artery measures 0.82cm x 0.83 cm. in the cross-sectional axis. Right iliac artery measures 0.79 cm. in the longitudinal axis. Peak systolic velocity in the right iliac artery measures 91 cm/sec. Procedure Aorta IVC Iliac vasculature or bypass grafts 50228. Difficult to visualize RCIA. Exam performed in department. Interpretation Summary No aortoiliac aneurysm or stenosis where visualized. Ordering Physician: Stephan Mcdonald Referring Physician: Blaze Louis Performed By: Sandee Luz, KEVEN, RVT
--- NOTE | 2020-06-27 08:58 | ART_ITS ---
Reason For Study: s/p LLE thrombolysis Procedure A bilateral lower extremity continuous wave Doppler with analog waveform analysis and ankle brachial indexes. Left Segmental Pressures Left brachial= 125mmHg. Left posterior tibial artery = 105mmHg. Left dorsalis pedis artery = 103mmHg. Left digit = 84 mmHg. Right Segmental Pressures Right brachial= 127mmHg. Right posterior tibial artery = 46mmHg. Right dorsalis pedis artery = 40mmHg. Right digit = 22 mmHg. Indices The right ankle brachial index by the posterior tibial artery is 0.36. The right ankle brachial index by the dorsalis pedis is 0.31. The right digital-brachial index is 0.17. The left ankle brachial index by the posterior tibial artery is 0.83. The left ankle brachial index by the dorsalis pedis is 0.81. The left digital-brachial index is 0.66. Interpretation Summary Right leg with severe occlussive disease and TAMEKA 0.36. Left leg mild with TAMEKA 0.83. Ordering Physician: Stephan Mcdonald Referring Physician: Stephan Mcdonald Performed By: Sandee Luz RDCS/RVT
== END ==
PROVIDERS: PCP Family Medicine; Referring Provider Surgery Vascular Surgery; Visit Provider Surgery Vascular Surgery
DX: I70.212 Atherosclerosis of native arteries of extremities with intermittent claudication, left leg (principal); F17.200 Nicotine dependence, unspecified, uncomplicated
CPT/HCPCS: 93922; 93978

== ENCOUNTER → 2020-06-28 13:04 | Outpatient (CLI) | payer MEDICAID, SELFPAY ==
[2020-05-24 15:31] VITALS: BMI 28.0
--- NOTE | 2020-06-28 13:29 | CT_ITS ---
STUDY: CT ABDOMEN AND PELVIS WITH CONTRAST REASON FOR EXAM: Male, 54 years old. ABD PAIN RADIATION DOSAGE (If Supplied By Facility): CTDIvol = ( 14.2 ) mGy, DLP = ( 805.95 ) mGycm TECHNIQUE: Transaxial images were obtained from the dome of the diaphragm to the symphysis pubis with oral contrast. Oral and amp; IV Readi-CAT and amp; 100mL Isovue-300 was administered. Sagittal and coronal images were reconstructed. Individualized dose optimization techniques were used for this CT. COMPARISON: Comparison is made with prior study dated 04/29/2020. FINDINGS: Minimal increased markings at the lung bases suggestive of a mass or atelectasis. Coronary artery calcification. Normal liver. Normal gallbladder and extrahepatic biliary system. Normal spleen. Normal pancreas. Stable 3.6 cm x 2.4 cm low-attenuation right adrenal nodule. Normal right kidney. Stable 5.4 cm cyst in the lower pole of the left kidney. Normal visualized stomach. Normal small intestine. Normal colon. The appendix is visualized and appears normal. There is diffuse atherosclerotic calcification of the abdominal aorta, without a demonstrated aneurysm. Normal inferior vena cava. There is borderline retroperitoneal lymphadenopathy with enlarged nodes no greater than 10mm in the short axis diameter. Normal urinary bladder. There is calcification of the vas deferens. Normal abdominal wall. There are diffuse degenerative changes of the visualized lumbar spine. CT/Abdomen/Pelvis WITH Contrast IMPRESSION: Stable 3.6 x 2.4 cm low-attenuation right adrenal nodule. Stable left renal cyst. Electronically Signed: Harry Voss, at 15:59 EDT , Service support ,
[2020-06-28 13:34] LABS: Absolute Lymphocyte Count 2.14 X10^3/uL (0.83-4.51); Absolute Neutrophil Count 12.8 X10^3/uL (2.0-7.7); Basophil% 0.6 % (0-1); Eosinophil# 0.38 X10^3/uL; Eosinophils% 2.3 % (0-5); Lymphocyte # 2.14 X10^3/ul (4.0); Lymphocyte % 12.8 % (19-41); Mean Corp Hgb Conc 31.9 g/dL (32-36); Mean Corpuscular Hgb 29.2 pg (27.0-32.0); Mean Corpuscular Volume 91.6 fL (80-94); Mean Platelet Vol. 9.9 fl (6.2-12.0); Monocyte# 1.28 X10^3/uL; Monocyte% 7.6 % (0-10); NRBC Flagged by Analyzer 0 % (0-5); Neutrophil % 76.2 % (47-70); Platelet Count 310 K/mm3 (150-450); RBC Distribution Width CV 17.4 % (11.6-14.6); RBC Distribution Width SD 57.7 fl (35.1-43.9); Red Blood Count 5.13 M/mm3 (4.6-6.2); White Blood Count 16.8 K/mm3 (4.4-11.0)
[2020-06-28 13:55] LABS: Lactic Acid 1.9 mmol/L (0.4-1.9)
[2020-06-28 14:14] LABS: ALB/GLOB Ratio 1.1 RATIO (0.9-2.4); AST(SGOT) 15 U/L (15-37); Alanine Aminotransfer ALT/SGPT 31 U/L (16-61); Albumin, Serum 4.2 g/dL (3.2-5.0); Alkaline Phosphatase 88 U/L (45-117); Anion Gap 4 (5-15); BUN 17 mg/dL (7-18); BUN/Creat Ratio 14.8 RATIO (10-20); Calcium,Total 9.5 mg/dL (8.5-10.1); Chloride 105 mmol/L (98-107); Creatinine, Serum 1.15 mg/dL (0.70-1.30); EST Glomerular Filtration Rate 70 mL/min (>60); Est Glom Filt Rate - Afr Amer 85 mL/min (>60); Globulin 3.9 g/dL (2.2-4.2); Glucose 116 mg/dL (74-106); Potassium 3.9 mmol/L (3.5-5.1); Protein, Total 8.1 g/dL (6.4-8.2); Sodium Level 138 mmol/L (136-145)
== END ==
PROVIDERS: PCP Family Medicine; Referring Provider Family Medicine; Visit Provider Family Medicine
DX: K55.9 Vascular disorder of intestine, unspecified (principal)
CPT/HCPCS: 36415; 74177; 80053; 83605; 85025; Q9967

== ENCOUNTER 2020-07-23 05:54 | Day surgery (SDC) | payer MEDICAID, SELFPAY ==
[2020-07-10 15:45] VITALS: BMI 28.0
[2020-07-23] VITALS (8 sets, daily range): BP systolic 111–138; BP diastolic 69–97; PULSE 68–108; RESP 18; TEMP 36.4–36.7; O2SAT 100; BMI 27.0
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
[2020-07-23] MEDS: Lactated Ringers 1,000 ML 100 ML IV (06:37)
[2020-07-23 06:50] LABS: Bedside Glucose 148 mg/dL (70-110)
--- NOTE | 2020-07-23 07:00 | COLBX_PTH ---
PATIENT: SAIRA STEVENS LOC: EN U#:[id number] AGE/SX: 54/M ROOM: RE07/23/[address]: Dr. Ang Wyatt MD : 1965 BED: DIS: 07/23/2020 SPEC #: [id number] RECD: 07/23/20 08:37 STATUS: SULMA SHAY #: [id number] REBEKA: 07/23/20 07:[address]: Ang Wyatt DEPT: SURGICAL PATHOLOGY RECD BY: Lele Kwon ENTERED: 07/23/20 09:13 SP TYPE: COLON BX OTHR DR: Dr. Blaze Louis MD Tissues: COLON BIOPSY Procedures: Surgery Specimen Level IV HEADER OPERATION: Colonoscopy (MAC) PRE-OP DIAGNOSIS: Rectal bleeding TISSUE SUBMITTED: Random colon biopsies MICROSCOPIC DIAGNOSIS Colon, random biopsy: Fragments of colonic mucosa, no pathologic diagnosis. EVANS:latonia 07/24/20 MICROSCOPIC DESCRIPTION Slides are reviewed. GROSS DESCRIPTION Received in fixative is one container labeled with the patient's name and designated random colon biopsy. The specimen consists of multiple irregular fragments of light smyth soft tissue that in aggregate measure 1.5 x 0.6 x 0.1 cm. The specimen is totally submitted in one cassette. / SJ:latonia 07/23/20 TC:4 CPT: 39899
--- NOTE | 2020-07-23 07:20 | OP.CCLET_ITS ---
07/23/2020 Blaze Louis [address] [place] [address] Re : Colonoscopy procedure for [facility] Dear Dr. Louis This procedure was performed on Thursday, July 23, 2020. My impressions and recommendations are as follows: Impressions : - Preparation of the colon was fair. - Non-thrombosed internal hemorrhoids and internal hemorrhoids (Grade I) found on digital rectal exam. - Diverticulosis in the sigmoid colon. Biopsied. - The examination was otherwise normal. Recommendations : - Discharge patient to home. - Resume previous diet. - Continue present medications. - Repeat colonoscopy in 10 years for screening purposes. - Telephone my office for pathology results in 1 week. No bleeding identified. No source identified. Possibly secondary to anticoagulant therapy. My findings are described in the full procedure note, which is enclosed. If I can be of further assistance, please feel free to contact me at Doctor phone number(s): Work: . Sincerely, Ang Wyatt MD 07/23/2020 7:19:41 AM This report has been signed electronically.
--- NOTE | 2020-07-23 07:20 | OP.COLON_ITS ---
Patient Name: Neto Weston Procedure Date: 07/23/2020 6:47 AM Date of : 1965 Age: 54 Procedure: Colonoscopy Indications: Rectal bleeding Providers: Ang Wyatt MD Referring MD: Blaze Louis Medicines: See the Anesthesia note for documentation of the administered medications Patient Profile: Last Colonoscopy: date unknown. Unable to locate last colonoscopy report. Complications: No immediate complications. Procedure: Pre-Anesthesia Assessment: - Prior to the procedure, a History and Physical was performed, and patient medications and allergies were reviewed. The patient's tolerance of previous anesthesia was also reviewed. The risks and benefits of the procedure and the sedation options and risks were discussed with the patient. All questions were answered, and informed consent was obtained. Prior Anticoagulants: The patient has taken no previous anticoagulant or antiplatelet agents. ASA Grade Assessment: III - A patient with severe systemic disease. After reviewing the risks and benefits, the patient was deemed in satisfactory condition to undergo the procedure. After I obtained informed consent, the scope was passed under direct vision. Throughout the procedure, the patient's blood pressure, pulse, and oxygen saturations were monitored continuously. The colonoscope was introduced through the anus and advanced to the cecum, identified by appendiceal orifice and ileocecal valve. The colonoscopy was performed without difficulty. The patient tolerated the procedure well. The quality of the bowel preparation was fair. The ileocecal valve and the appendiceal orifice were photographed. Scope In: 6:58:02 AM Scope Withdrawal Time 0 hours 8 minutes 37 seconds Scope Out: 7:10:03 AM Total Procedure Duration Time 0 hours 12 minutes 1 second Findings: The digital rectal exam findings include non-thrombosed internal hemorrhoids and internal hemorrhoids (Grade I). Pertinent negatives include normal prostate (size, shape, and consistency). Scattered diverticula were found in the sigmoid colon. Biopsies for histology were taken with a cold forceps from the entire colon for evaluation of microscopic colitis. The exam was otherwise without abnormality. Impression: - Preparation of the colon was fair. - Non-thrombosed internal hemorrhoids and internal hemorrhoids (Grade I) found on digital rectal exam. - Diverticulosis in the sigmoid colon. Biopsied. - The examination was otherwise normal. Recommendation: - Discharge patient to home. - Resume previous diet. - Continue present medications. - Repeat colonoscopy in 10 years for screening purposes. - Telephone my office for pathology results in 1 week. No bleeding identified. No source identified. Possibly secondary to anticoagulant therapy. Procedure Code(s): --- Professional --- 96739, Colonoscopy, flexible; with biopsy, single or multiple Diagnosis Code(s): --- Professional --- K64.0, First degree hemorrhoids K62.5, Hemorrhage of anus and rectum K57.30, Diverticulosis of large intestine without perforation or abscess without bleeding CPT copyright 2017 [employer]. All rights reserved. The codes documented in this report are preliminary and upon community engagement manager review may be revised to meet current compliance requirements. Ang Wyatt MD 07/23/2020 7:19:41 AM This report has been signed electronically. Number of Addenda: 0 Note Initiated On: 07/23/2020 6:47 AM
== END 2020-07-23 08:20 | disposition home or self-care (01) ==
LOC: EN 05:54 → AC 05:55
PROVIDERS: Anesthesiology; PCP Family Medicine; Referring Provider Family Medicine; Visit Provider Surgery
PROC: 0DJD8ZZ Inspection of Lower Intestinal Tract, Via Natural or Artificial Opening Endoscopic (ICD-10-PCS; CPT 45378; principal; 2020-07-23 06:55)
DX: K62.5 Hemorrhage of anus and rectum (principal); G47.33 Obstructive sleep apnea (adult) (pediatric); I25.10 Atherosclerotic heart disease of native coronary artery without angina pectoris; E78.5 Hyperlipidemia, unspecified; E11.51 Type 2 diabetes mellitus with diabetic peripheral angiopathy without gangrene; I48.0 Paroxysmal atrial fibrillation; I10 Essential (primary) hypertension; F17.200 Nicotine dependence, unspecified, uncomplicated; K64.0 First degree hemorrhoids; K57.30 Diverticulosis of large intestine without perforation or abscess without bleeding; I25.2 Old myocardial infarction; G25.81 Restless legs syndrome; J44.9 Chronic obstructive pulmonary disease, unspecified; K21.9 Gastro-esophageal reflux disease without esophagitis; D64.9 Anemia, unspecified; Z11.59 Encounter for screening for other viral diseases; Z79.899 Other long term (current) drug therapy; Z79.84 Long term (current) use of oral hypoglycemic drugs; Z79.82 Long term (current) use of aspirin; Z95.1 Presence of aortocoronary bypass graft; Z79.01 Long term (current) use of anticoagulants; Z86.718 Personal history of other venous thrombosis and embolism; F41.9 Anxiety disorder, unspecified; F32.9 Major depressive disorder, single episode, unspecified
CPT/HCPCS: 45380; 82962; 87635; 88305; 94799; J7120; J2405; U0003

== ENCOUNTER → 2020-08-15 08:51 | Outpatient (CLI) | payer MEDICAID, SELFPAY ==
[2020-07-23 06:27] VITALS: BMI 27.0
--- NOTE | 2020-08-15 08:54 | ADUL_ITS ---
Reason For Study: Atheroscelrosis Right Velocities Ext. Iliac Artery, dist = 75.3 cm./sec. Common Femoral Artery, mid = 80.8 cm./sec. No flow noted in the right SFA from origin to distal. Supf Femoral Artery, dist. = 15 cm./sec. Profunda Femoral Artery = 561.1 cm./sec. Profunda Femoral Artery, distal to stenosis, 39 cm/sec. Popliteal Artery, prox. = 13.7 cm./sec. Popliteal Artery, mid = 10.6 cm./sec. Popliteal Artery, dist = 14.1 cm./sec. Post. Tibial Artery, prox = 13.7 cm./sec. Post. Tibial Artery, mid = 13.7 cm./sec. Post. Tibial Artery, dist = 12.2 cm./sec. Peroneal Artery, prox = 8.1 cm./sec. Peroneal Artery, mid = 9.7 cm./sec. Peroneal Artery,dist = 4.6 cm./sec. Ant. Tibial Artery, prox = 11.5 cm./sec. Ant. Tibial Artery, mid = 9 cm./sec. Ant. Tibial Artery, dist = 4.9 cm./sec. Procedure Prelim to Harry. Exam performed in department. Interpretation Summary Right femoral artery occluded. Ordering Physician: Stephan Mcdonald Referring Physician: Blaze Louis Performed By: Lea Goldstein RVT
== END ==
PROVIDERS: PCP Family Medicine; Referring Provider Surgery Vascular Surgery; Visit Provider Surgery Vascular Surgery
DX: I70.213 Atherosclerosis of native arteries of extremities with intermittent claudication, bilateral legs (principal)
CPT/HCPCS: 93926

== ENCOUNTER → 2020-08-30 09:53 | Outpatient (CLI) | payer MEDICAID, SELFPAY ==
[2020-07-23 06:27] VITALS: BMI 27.0
[2020-08-30 12:47] LABS: Absolute Neutrophil Count 6.5 X10^3/uL (2.0-7.7); Basophil# 0.07 X10^3/uL; Basophil% 0.8 % (0-1); Eosinophil# 0.13 X10^3/uL; Eosinophils% 1.5 % (0-5); Hematocrit 44.9 % (40-54); Lymphocyte % 13.7 % (19-41); Mean Corp Hgb Conc 31.2 g/dL (32-36); Mean Corpuscular Hgb 31.3 pg (27.0-32.0); Mean Corpuscular Volume 100.4 fL (80-94); Mean Platelet Vol. 10.6 fl (6.2-12.0); Monocyte# 0.78 X10^3/uL; Monocyte% 8.9 % (0-10); NRBC Flagged by Analyzer 0 % (0-5); Neutrophil # 6.49 X10^3/uL (2.7-7.7); Neutrophil % 74.4 % (47-70); POSITIVE MORPHOLOGY YES; Platelet Count 229 K/mm3 (150-450); RBC Distribution Width CV 17.9 % (11.6-14.6); RBC Distribution Width SD 67.1 fl (35.1-43.9); Red Blood Count 4.47 M/mm3 (4.6-6.2); White Blood Count 8.7 K/mm3 (4.4-11.0)
[2020-08-30 12:53] LABS: Differential Indicated SCAN CRITERIA MET
[2020-08-30 13:05] LABS: Hemoglobin A1c 6.1 % (3.8-5.6); Vitamin B12 373 pg/mL (211-911); Vitamin D,25 Hydroxy 60.1 ng/mL
[2020-08-30 13:08] LABS: AST(SGOT) 11 U/L (15-37); Alanine Aminotransfer ALT/SGPT 18 U/L (16-61); Albumin, Serum 3.6 g/dL (3.2-5.0); Alkaline Phosphatase 83 U/L (45-117); Anion Gap 7 (5-15); BUN 9 mg/dL (7-18); BUN/Creat Ratio 9.8 RATIO (10-20); Calcium,Total 9.1 mg/dL (8.5-10.1); Chloride 108 mmol/L (98-107); Cholesterol 109 mg/dL (200); Creatinine, Serum 0.92 mg/dL (0.70-1.30); EST Glomerular Filtration Rate 91 mL/min (>60); Est Glom Filt Rate - Afr Amer 110 mL/min (>60); Ferritin 39 ng/mL (26-388); Globulin 3.7 g/dL (2.2-4.2); Glucose 117 mg/dL (74-106); High Density Lipoprotein 42 mg/dL; Iron 40 ug/dL (65-175); Iron Binding Capacity,Total 357 ug/dL (250-450); Potassium 4.4 mmol/L (3.5-5.1); Protein, Total 7.3 g/dL (6.4-8.2); Sodium Level 139 mmol/L (136-145); Triglycerides 62 mg/dL; Very Low Density Lipoprotein 12 mg/dL (5-40)
[2020-08-30 13:21] LABS: Anisocytosis 2+; Differential Comment SCANNED; Macrocytosis 1+; Red Cell Morphology N CHROM NORMAL (NORM C&C)
[2020-09-05 06:16] LABS: Vitamin B1, Thiamine 130.8 nmol/L (66.5-200.0)
== END ==
PROVIDERS: PCP Family Medicine; Referring Provider Family Medicine; Visit Provider Family Medicine
DX: I48.91 Unspecified atrial fibrillation (principal); E72.20 Disorder of urea cycle metabolism, unspecified; E61.1 Iron deficiency; E11.9 Type 2 diabetes mellitus without complications; E78.5 Hyperlipidemia, unspecified; E53.9 Vitamin B deficiency, unspecified; E55.9 Vitamin D deficiency, unspecified
CPT/HCPCS: 36415; 80053; 80061; 82140; 82306; 82607; 82728; 83036; 83540; 83550; 84425; 85025

== ENCOUNTER 2020-10-19 13:32 | Emergency (ER) | payer MEDICAID, SELFPAY ==
[2020-07-23 06:27] VITALS: BMI 27.0
[2020-10-19 13:34] VITALS: BP 167/87; PULSE 101; RESP 22; TEMP 37.1; O2SAT 97; BMI 29.5
--- NOTE | 2020-10-19 13:38 | EKG12_ITS ---
Test Reason : CP Blood Pressure : / mmHG Vent. Rate : 100 BPM Atrial Rate : 300 BPM P-R Int : 000 ms QRS Dur : 082 ms QT Int : 414 ms P-R-T Axes : 096 072 108 degrees QTc Int : 534 ms Atrial flutter with 3:1 A-V conduction Nonspecific ST and T wave abnormality Prolonged QT Abnormal ECG Confirmed by JHON LOMELI, SMITA ([id number]), script editor CANDICE ZAZUETA ([id number]) on 10/22/2020 9:50:31 AM Referred By: EVAN Confirmed By:SMITA FERREIRA MD
[2020-10-19 14:06] LABS: Absolute Lymphocyte Count 1.24 X10^3/uL (0.83-4.51); Absolute Neutrophil Count 9.6 X10^3/uL (2.0-7.7); Basophil# 0.08 X10^3/uL; Basophil% 0.7 % (0-1); Eosinophil# 0.16 X10^3/uL; Eosinophils% 1.3 % (0-5); Hematocrit 46.5 % (40-54); Hemoglobin 14.3 g/dL (13.0-16.5); Lymphocyte # 1.24 X10^3/ul (4.0); Lymphocyte % 10.3 % (19-41); Mean Corp Hgb Conc 30.8 g/dL (32-36); Mean Corpuscular Hgb 30.6 pg (27.0-32.0); Mean Corpuscular Volume 99.4 fL (80-94); Mean Platelet Vol. 9.9 fl (6.2-12.0); Monocyte# 0.84 X10^3/uL; NRBC Flagged by Analyzer 0 % (0-5); Neutrophil # 9.63 X10^3/uL (2.7-7.7); Neutrophil % 80.3 % (47-70); Platelet Count 319 K/mm3 (150-450); RBC Distribution Width CV 14.4 % (11.6-14.6); RBC Distribution Width SD 52.3 fl (35.1-43.9); Red Blood Count 4.68 M/mm3 (4.6-6.2)
[2020-10-19 14:26] LABS: Anion Gap 3 (5-15); BUN 7 mg/dL (7-18); BUN/Creat Ratio 7.1 RATIO (10-20); Calcium,Total 9.7 mg/dL (8.5-10.1); Chloride 107 mmol/L (98-107); Creatinine, Serum 0.99 mg/dL (0.70-1.30); EST Glomerular Filtration Rate 84 mL/min (>60); Est Glom Filt Rate - Afr Amer 101 mL/min (>60); Estimated Creatinine Clearance 84.31 ml/min; Glucose 141 mg/dL (74-106); Potassium 3.9 mmol/L (3.5-5.1); Sodium Level 139 mmol/L (136-145)
--- NOTE | 2020-10-19 15:10 | RAD_ITS ---
STUDY: X-RAY CHEST REASON FOR EXAM: Male, 55 years old. CHEST PAIN, COUGH, SOB, DIARRHEA, HEADACHE TECHNIQUE: Single AP portable view of the chest. COMPARISON: Comparison is made with prior study dated 04/29/2020. FINDINGS: Mild degree of basilar congestion and CHF. There is no demonstrated pleural abnormality. Sternal cerclage wires and vascular clips are present from a prior sternotomy and coronary artery bypass graft procedure (CABG). A loop recording device is seen overlying the left cardiac border. Normal mediastinum and ranjit. Normal visualized pulmonary arteries. Normal visualized aortic arch and descending thoracic aorta. Normal visualized thoracic spine. Normal visualized ribs, clavicles, and shoulders. There is no demonstrated abnormality of the visualized soft tissue structures of the upper abdomen. RAD/Chest 1 View (Portable) IMPRESSION: Findings suggestive of a mild degree of vascular congestion and CHF. Electronically Signed: Harry Voss, at 15:33 EST , Service support ,
--- NOTE | 2020-10-19 15:21 | ED.DCSUM_ITS ---
History of Present Illness Chief Complaint: General Illness Informant: Patient Onset: Weeks - 1 Activity at onset: - - Gradual onset Timing: Continuous Quality: Dyspnea on exertion, Wheezing, - - Bronchospasm Current Severity: Moderate Maximum Severity: Moderate Worsened by: Coughing, Exertion, Lying flat - Due to coughing more Relieved by: Albuterol, Rest Associated Symptoms: Chills, Cough - Nonproductive. Negative for: Bloody Sputum Chest Pain: Aching - With coughing, left chest, mild Narrative: Patient has had progressively worsening respiratory illness and increasing COPD symptoms for the past week. Cold chills, headaches, myalgias, fatigue and malaise, cough is nonproductive, he has a lot of pain in between his shoulder blades upper back. No radiation into his extremities specifically. Patient presents during the national coronavirus emergency declaration/pandemic. He denies any known contact with anyone infected with COVID-19. He denies traveling out of the immediate area recently. He has not been diagnosed with Covid yet and has had a test around 3 months ago that was negative. This is his first visit to a healthcare provider in the past week. He is on 3 L of oxygen at home for his COPD. He is anticoagulated for chronic A. fib and does not know exactly which anticoagulant he is on. 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 Past Medical History - Allergies and Home Meds Allergies/Adverse Reactions: Allergies seasonal Allergy (Uncoded 10/19/20 13:36) SOB Primary Care Physician: Blaze Louis MD [Primary Care Provider] - 3-5 Days if not improving Surgical History: coronary bypass surgery Smoking Status: Current every day smoker - Family History Maternal Family History: Family History (Last Reviewed 07/10/20 @ 15:32 by Obdulia Garcia) Father CAD (coronary artery disease) COPD (chronic obstructive pulmonary disease) CHF (congestive heart failure) Mother COPD (chronic obstructive pulmonary disease) Family History: Reports: No pertinent history Paternal Family History: Family History (Last Reviewed 07/10/20 @ 15:32 by Obdulia Garcia) Father CAD (coronary artery disease) COPD (chronic obstructive pulmonary disease) CHF (congestive heart failure) Mother COPD (chronic obstructive pulmonary disease) Family History: Reports: No pertinent history Review of Systems General: Reports: Chills, Malaise, Subjective. Denies: Fever Eyes: Denies: Visual changes - bilaterally, Diplopia ENT: Denies: Bilateral ear pain, Rhinorrhea, Sore throat Cardiovascular: Reports: Chest pain. Denies: Palpitations, Heart racing Respiratory: Reports: Dyspnea, Cough, Dyspnea on exertion. Denies: Sputum, Orthopnea Gastrointestinal: Reports: Diarrhea. Denies: Abdominal pain, Nausea, Vomiting, Melena, Hematochezia Genitourinary: Denies: Dysuria, Hematuria, Frequency Musculoskeletal: Reports: Myalgias, Back pain. Denies: Swelling Skin: Denies: Rash, Wounds Neurological: Reports: Headache. Denies: Weakness, Numbness Physical Exam Vital Signs/Narrative: Vital Signs Temp Pulse Resp BP Pulse Ox 10/19/20 13:34 98.7 F 101 H 22 H 167/87 H 97 Inital Vital Signs reviewed: Yes General: Well nourished, Well developed, No Acute Distress - Conversive in full sentences Head: Normocephalic, Atraumatic Eyes: Perrl, EOMI ENT: Moist mucous membranes, No rhinorrhea Neck: Supple, Nontender, No lymphadenopathy, No JVD Cardiovascular: Regular rate, Regular rhythm, No murmurs. Negative for: Tachycardia Respiratory: No distress, CTA bilaterally, Chest nontender, Diminished - Throughout, symmetrical Abdomen: Soft, Nontender, Nondistended, Normal bowel sounds Back: Normal Inspection, - - Tender in rhomboid paraspinal musculature bilaterally, reproducing the patient's back pain. Negative for: Spinal tenderness Extremities: Nontender, No edema. Negative for: Calf Tenderness Skin: Normal color, No rash, No Trauma Neurological: Alert, Oriented x3, Cranial nerves II-XII grossly intact, Normal Strength, Normal Sensation, Normal Gait Psychological: Normal affect, Normal Mood Diagnostic/Tx/Re-eval Impressions Chest X-Ray 10/19/20 15:10 IMPRESSION: Findings suggestive of a mild degree of vascular congestion and CHF. Electronically Signed: Harry Voss, at 15:33 EST , Service support , 10/19/20 15:10 Chest 1 View (Portable) [RAD] Stat Laboratory Results 10/19/20 10/19/20 10/19/20 13:55 13:55 13:55 WBC 12.0 H RBC 4.68 Hgb 14.3 Hct 46.5 MCV 99.4 H MCH 30.6 MCHC 30.8 L RDW Std Deviation 52.3 H RDW Coeff of Arleen 14.4 Plt Count 319 MPV 9.9 Immature Gran % (Auto) 0.400 Neut % (Auto) 80.3 H Lymph % (Auto) 10.3 L [place] % (Auto) 7.0 Eos % (Auto) 1.3 Baso % (Auto) 0.7 Absolute Neuts (auto) 9.6 H Absolute Lymphs (auto) 1.24 Nucleated RBC % 0 Sodium 139 Potassium 3.9 Chloride 107 Carbon Dioxide 29.0 Anion Gap 3 L BUN 7 Creatinine 0.99 Estim Creat Clear Calc 84.31 Est GFR (MDRD) Af Amer 101 Est GFR (MDRD) Non-Af 84 BUN/Creatinine Ratio 7.1 L Glucose 141 H Calcium 9.7 Troponin I 0.020 B-Natriuretic Peptide 213.1 H - Rhythm Strip Rhythm Strip: aflutter Rate: 100 Ectopy: None - EKG Initial EKG Interpretation: No Acute Injury Pattern, Atrial Flutter Prior: Unchanged Treatment - Dyspnea: Oxygen, Albuterol, Atrovent - Medical Decision Making Patient is improved after nebulizer treatments. He is not hypoxic on his home oxygen. His vital signs are stable. He is in chronic a flutter that is rate controlled relatively. The rest of his cardiac work-up is unremarkable, but his chest x-ray read above as CHF. I think he has a COPD exacerbation due to COVID-19, however he does not need to be admitted so that is a send out test. I suspect the chest x-ray actually is showing early bibasilar infiltrates that are patchy. This is consistent with COVID-19. I did send a BNP, it is fairly low, similar to prior readings for him. He has a history of mild diastolic dysfunction but normal ejection fraction. Given all this I do not think his chest x-ray and history/exam represent acute decompensated congestive heart failure. He was advised to quarantine. He was placed on prednisone and a azithromycin to cover him for bacterial superinfection as well as his COPD. He was given a dose of Decadron here. We discussed reasons to return. ED Disposition - Plan for ED Patient: Disposition: Home or Assisted Living Diagnosis: COPD exacerbation, Suspected COVID-19 virus infection, Pneumonia Instructions: ED COPD Flare Prescriptions: Prednisone 10 mg PO UD #33 tab Prescription Printed Azithromycin [Zithromax Z-Naman] 250 mg PO UD #1 box Prescription Printed Referrals: Blaze Louis MD [Primary Care Provider] - 3-5 Days if not improving
[2020-10-19] MEDS: dexAMETHasone 10 MG/ML Vial 6 MG IV (15:30)
[2020-10-19] MEDS: Albuterol 2.5 MG/3 ML VIAL.NEB. INHALATION (15:31)
[2020-10-19] MEDS: Ipratropium/Albuterol Sulfate 3 ML AMPUL.NEB INHALATION (15:31)
[2020-10-19 15:35] VITALS: O2SAT 98
[2020-10-19] MEDS: Ketorolac 30 MG/ML Syringe IV (15:47)
[2020-10-19 16:35] LABS: BNP,B-Type NATRIURETIC PEPTIDE 213.1 pg/mL (0-100)
[2020-10-19] MEDS: traMADol 50 MG Tablet PO (17:03)
[2020-10-19 17:06] VITALS: BP 150/90; PULSE 99; RESP 20; O2SAT 97
--- NOTE | 2020-10-19 17:07 | ED.RN ---
IV DC'ED, CATHETER INTACT, SMALL GAUZE DRESSING PLACED. DISCHARGE INSTRUCTIONS GIVEN TO AND REVIEWED WITH PATIENT, PATIENT DENIES QUESTIONS OR CONCERNS AND VOICES UNDERSTANDING OF DISCHARGE INSTRUCTIONS. PT AMBULATES OUT OF ROOM WITHOUT ISSUE.
== END 2020-10-19 17:08 | disposition home or self-care (01) ==
PROVIDERS: Emergency Provider Emergency Medicine; PCP Family Medicine
DX: J44.1 Chronic obstructive pulmonary disease with (acute) exacerbation (principal); Z20.828 Contact with and (suspected) exposure to other viral communicable diseases; J18.9 Pneumonia, unspecified organism; I25.10 Atherosclerotic heart disease of native coronary artery without angina pectoris; F17.200 Nicotine dependence, unspecified, uncomplicated; I10 Essential (primary) hypertension; E11.51 Type 2 diabetes mellitus with diabetic peripheral angiopathy without gangrene; E78.5 Hyperlipidemia, unspecified; I48.0 Paroxysmal atrial fibrillation; Z79.01 Long term (current) use of anticoagulants; Z79.84 Long term (current) use of oral hypoglycemic drugs
CPT/HCPCS: 71045; 80048; 83880; 84484; 85025; 87635; 93005; 94640; 96374; 96375; 99284; A4216; U0003

== ENCOUNTER 2020-11-14 02:12 | Inpatient (IN) | payer MEDICAID, SELFPAY ==
[2020-11-14] VITALS (24 sets, daily range): BP systolic 114–148; BP diastolic 62–83; PULSE 77–124; RESP 14–22; TEMP 36.3–36.7; O2SAT 96–98; BMI 32.1; BMI 33.4; BMI 33.5
--- NOTE | 2020-11-14 02:29 | EKG12_ITS ---
Test Reason : CHEST PAIN Blood Pressure : / mmHG Vent. Rate : 123 BPM Atrial Rate : 330 BPM P-R Int : 000 ms QRS Dur : 086 ms QT Int : 356 ms P-R-T Axes : 000 058 145 degrees QTc Int : 509 ms Atrial flutter with variable A-V block T wave abnormality, consider lateral ischemia Abnormal ECG Confirmed by ZACH LOMELI, TED ([id number]), map editor CANDICE ZAZUETA ([id number]) on 11/21/2020 10:27:51 AM Referred By: PERRY Confirmed By:ALY SERRANO MD
--- NOTE | 2020-11-14 02:29 | RAD_ITS ---
STUDY: X-RAY CHEST REASON FOR EXAM: Male, 55 years old. SOB TECHNIQUE: Single AP portable view of the chest. COMPARISON: 10/19/2020. FINDINGS: The lungs are normally expanded with subtle right lower lobe density concerning for early infiltrate. There is no demonstrated pleural abnormality. Sternal cerclage wires and vascular clips are present from a prior sternotomy and coronary artery bypass graft procedure (CABG). Normal mediastinum and ranjit. Normal visualized pulmonary arteries. Normal visualized aortic arch and descending thoracic aorta. Normal visualized thoracic spine. Normal visualized ribs, clavicles, and shoulders. There is no demonstrated abnormality of the visualized soft tissue structures of the upper abdomen. RAD/Chest 1 View (Portable) IMPRESSION: Possible early right lower lobe infiltrate. Clinical correlation recommended. Electronically Signed: Leonor Gill MD at 2:59 EST , Service support ,
--- NOTE | 2020-11-14 02:30 | ED.VIS.GEN ---
History of Present Illness Chief Complaint: Shortness of Breath Informant: Patient Onset: Days Context: Gradual Onset Current Severity: Mild Maximum Severity: Moderate Narrative: Patient presents secondary to increased shortness of breath along with bilateral lower extremity swelling. He reports increased leg swelling and distention in his abdomen over the past 3 days or so. He reports increased shortness of breath and states he is not been able to lie down to sleep for longer than that. He did have some chest pain earlier this morning that he took nitro for. He is complaining of pain in his feet and in his left scapula. He states he doubled his furosemide at home to try to get rid of the fluid but is not really urinating much. - Past Medical History (1) CAD (coronary artery disease) Status: Chronic (2) Diabetes mellitus Status: Chronic (3) Hx of CABG Status: Chronic Comment: CABG X 3 vessels, CARTER to LAD, SVG to OM1, SVG to OM3 11/03 (4) Hyperlipidemia Status: Chronic (5) Hypertension Status: Chronic (6) PAD (peripheral artery disease) Status: Chronic (7) Paroxysmal atrial fibrillation Status: Chronic (8) Typical atrial flutter Status: Chronic Past Medical History - Allergies and Home Meds Allergies/Adverse Reactions: Allergies seasonal Allergy (Uncoded 11/14/20 02:18) SOB Primary Care Physician: Blaze Louis MD [Primary Care Provider] - Prior records reviewed: Yes Surgical History: coronary bypass surgery Smoking Status: Current every day smoker Drugs: Marijuana - Family History Maternal Family History: Family History (Last Reviewed 07/10/20 @ 15:32 by Obdulia Garcia) Father CAD (coronary artery disease) COPD (chronic obstructive pulmonary disease) CHF (congestive heart failure) Mother COPD (chronic obstructive pulmonary disease) Family History: Reports: No pertinent history Paternal Family History: Family History (Last Reviewed 07/10/20 @ 15:32 by Obdulia Garcia) Father CAD (coronary artery disease) COPD (chronic obstructive pulmonary disease) CHF (congestive heart failure) Mother COPD (chronic obstructive pulmonary disease) Family History: Reports: No pertinent history Review of Systems General: Denies: Chills, Fever Eyes: Denies: Visual changes - bilaterally ENT: Denies: Bilateral ear pain Cardiovascular: Reports: Chest pain Respiratory: Reports: Dyspnea Gastrointestinal: Reports: Abdominal pain, Nausea Genitourinary: Reports: - - Decreased urine output Musculoskeletal: Reports: Swelling, Extremity Pain Skin: Reports: Rash Neurological: Reports: Parasthesia. Denies: Headache Allergy: Denies: Uticaria Physical Exam Vital Signs/Narrative: Vital Signs Temp Pulse Resp BP Pulse Ox 11/14/20 02:15 97.3 F L 122 H 21 H 148/74 H 96 11/14/20 02:13 97.3 F L 124 H 22 H 141/67 H 96 Inital Vital Signs reviewed: Yes General: Well nourished, Well developed Head: Normocephalic ENT: Moist mucous membranes Cardiovascular: Tachycardia Respiratory: No distress, Diminished Abdomen: Soft, Nontender, - - Slightly distended Extremities: - - 3-4+ edema bilateral lower extremities. Skin: Normal color Neurological: Alert, Oriented x3 Psychological: Normal affect Diagnostic/Tx/Re-eval Chest X-Ray - ED: 1 View, Read by ED Physician, Chronic Changes Impressions Chest X-Ray 11/14/20 02:29 IMPRESSION: Possible early right lower lobe infiltrate. Clinical correlation recommended. Electronically Signed: Leonor Gill MD at 2:59 EST , Service support , 11/14/20 02:29 Chest 1 View (Portable) [RAD] Stat 11/14/20 02:40 Mucosa - Nasopharyngeal SARS-CoV-2 Antigen (Rapid) - Final Laboratory Results 11/14/20 11/14/20 11/14/20 02:15 02:15 02:15 WBC 12.8 H RBC 4.38 L Hgb 12.5 L Hct 42.1 MCV 96.1 H MCH 28.5 MCHC 29.7 L RDW Std Deviation 53.8 H RDW Coeff of Arleen 15.2 H Plt Count 240 MPV 10.4 Immature Gran % (Auto) 2.000 H Neut % (Auto) 92.2 H Lymph % (Auto) 3.5 L [place] % (Auto) 1.6 Eos % (Auto) 0.3 Baso % (Auto) 0.4 Absolute Neuts (auto) 11.8 H Absolute Lymphs (auto) 0.45 L Nucleated RBC % 0 Sodium 137 Potassium 4.5 Chloride 103 Carbon Dioxide 28.0 Anion Gap 6 BUN 16 Creatinine 1.34 H Estim Creat Clear Calc 64.31 Est GFR (MDRD) Af Amer 71 Est GFR (MDRD) Non-Af 59 L BUN/Creatinine Ratio 11.9 Glucose 436 H Calcium 8.8 Troponin I 0.083 H B-Natriuretic Peptide 90.4 - EKG Initial EKG Interpretation: Atrial Flutter - Atrial flutter with variable AV block. Ventricular rate 123. Mild ST changes in the lateral leads, similar but slightly more pronounced when compared to previous EKG. - Medical Decision Making On repeat evaluation patient is resting comfortably. Heart rate varies from 98-119. Test results are reviewed with him. His BNP is not elevated and chest x-ray does not show significant fluid overload. Patient's troponin is slightly elevated at 0.08. Patient's creatinine is also bumped above baseline for him. This may be secondary to the patient doubling his Lasix recently to try to improve his lower extremity edema. Patient has had intermittent chest pain and does have a bump in his troponin. I do feel he would benefit from observation for cycling of enzymes and evaluation by cardiology. Patient will be discussed with hospitalist. ED Disposition - Plan for ED Patient: Disposition: Acute Care Hospital [facility] Diagnosis: Chest pain, Lower extremity edema Referrals: Blaze Louis MD [Primary Care Provider] -
[2020-11-14] MEDS: fentaNYL 100 MCG/2 ML Ampul 25 MCG IV (02:42)
[2020-11-14 02:49] LABS: Absolute Lymphocyte Count 0.45 X10^3/uL (0.83-4.51); Absolute Neutrophil Count 11.8 X10^3/uL (2.0-7.7); Basophil# 0.05 X10^3/uL; Basophil% 0.4 % (0-1); Eosinophil# 0.04 X10^3/uL; Eosinophils% 0.3 % (0-5); Hematocrit 42.1 % (40-54); Hemoglobin 12.5 g/dL (13.0-16.5); Lymphocyte # 0.45 X10^3/ul (4.0); Lymphocyte % 3.5 % (19-41); Mean Corp Hgb Conc 29.7 g/dL (32-36); Mean Corpuscular Hgb 28.5 pg (27.0-32.0); Mean Corpuscular Volume 96.1 fL (80-94); Mean Platelet Vol. 10.4 fl (6.2-12.0); Monocyte% 1.6 % (0-10); NRBC Flagged by Analyzer 0 % (0-5); Neutrophil # 11.83 X10^3/uL (2.7-7.7); Neutrophil % 92.2 % (47-70); POSITIVE DIFFERENTIAL YES; Platelet Count 240 K/mm3 (150-450); RBC Distribution Width CV 15.2 % (11.6-14.6); RBC Distribution Width SD 53.8 fl (35.1-43.9); Red Blood Count 4.38 M/mm3 (4.6-6.2); White Blood Count 12.8 K/mm3 (4.4-11.0)
[2020-11-14 02:51] LABS: Differential Indicated SCAN CRITERIA MET
[2020-11-14 03:01] LABS: Anion Gap 6 (5-15); BUN 16 mg/dL (7-18); BUN/Creat Ratio 11.9 RATIO (10-20); Calcium,Total 8.8 mg/dL (8.5-10.1); Chloride 103 mmol/L (98-107); Creatinine, Serum 1.34 mg/dL (0.70-1.30); EST Glomerular Filtration Rate 59 mL/min (>60); Est Glom Filt Rate - Afr Amer 71 mL/min (>60); Estimated Creatinine Clearance 64.31 ml/min; Glucose 436 mg/dL (74-106); Potassium 4.5 mmol/L (3.5-5.1); Sodium Level 137 mmol/L (136-145)
[2020-11-14 03:09] LABS: BNP,B-Type NATRIURETIC PEPTIDE 90.4 pg/mL (0-100)
[2020-11-14] MEDS: Aspirin 81 MG TAB.CHEW 324 MG PO (03:47)
--- NOTE | 2020-11-14 03:59 | HP.PCM_ITS ---
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 (4) Smoking greater than 40 pack years Status: Chronic (5) Chronic obstructive pulmonary disease Status: Chronic Qualifiers: COPD type: emphysema Emphysema type: centrilobular Qualified Code(s): J43.2 - Centrilobular emphysema (6) PAD (peripheral artery disease) Status: Chronic (7) CAD (coronary artery disease) Status: Chronic (8) Hx of CABG Status: Chronic Comment: CABG X 3 vessels, CARTER to LAD, SVG to OM1, SVG to OM3 11/03 (9) History of open reduction and internal fixation (ORIF) procedure Status: Chronic Comment: Left lower extremity (10) Typical atrial flutter Status: Chronic (11) Other specified cardiac device in situ Status: Chronic (12) Presence of coronary angioplasty implant and graft Status: Chronic Comment: February 2005 IVUS of LAD, May 2005 PTCA & ALBAN X 3 to 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 [place] (13) Paroxysmal atrial fibrillation Status: Chronic (14) Diabetes mellitus Status: Chronic (15) Hypertension Status: Chronic Qualifiers: (16) Hyperlipidemia Status: Chronic Qualifiers: (17) Nicotine abuse Status: Chronic History of Present Illness Date of Admission: 11/14/20 Chief Complaint: leg swelling The patient is a 55 year old M with a significant history of CAD status post CABG and 9 coronary stents; paroxysmal A. fib; obstructive sleep apnea and COPD overlap syndrome; and tobacco abuse who presents emergency department with 1 week history of progressively worsening bilateral leg swelling. Because of his bilateral leg swelling patient has been doubling up on his home Lasix without any real relief. He has been having difficulty taking off his pants because of his leg swelling. Further he reports shortness of breath ongoing for about 1 month. He reported he was treated for pneumonia but his shortness of breath has persisted. He reports orthopnea and paroxysmal nocturnal dyspnea. He reports abdominal distention. Also, he complains of chest pain; bilateral shoulder pain and left flank pain. His chest pain; shoulder blade pain and his left flank pain has been going for about 2 months. Reportedly he took nitroglycerin at home for his chest pain. He reports chronic cough that is dry. He reports a feeling of his sputum stuck in his throat. Of note patient is on chronic 3 L nasal oxygen. At night he uses CPAP with 4 L of oxygen bled in. Past Medical History Past Medical History (Chronic Problems): Chronic Problems (Last Reviewed 11/14/20 @ 05:[address] Jeferson Mcfarlane MD) KENNETH and COPD overlap syndrome (Chronic) Smoking greater than 40 pack years (Chronic) Chronic obstructive pulmonary disease (Chronic) PAD (peripheral artery disease) (Chronic) CAD (coronary artery disease) (Chronic) Hx of CABG (Chronic) CABG X 3 vessels, CARTER to LAD, SVG to OM1, SVG to OM3 11/03 History of open reduction and internal fixation (ORIF) procedure (Chronic) Left lower extremity Typical atrial flutter (Chronic) Other specified cardiac device in situ (Chronic) Presence of coronary angioplasty implant and graft (Chronic) February 2005 IVUS of LAD, May 2005 PTCA & ALBAN X 3 to 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 [place] Paroxysmal atrial fibrillation (Chronic) Diabetes mellitus (Chronic) Hypertension (Chronic) Hyperlipidemia (Chronic) Nicotine abuse (Chronic) Medical History: Medical History (Last Reviewed 11/14/20 @ 05:[address] Jeferson Mcfarlane MD) Chronic anticoagulation (Inactive) Z79.01 Rectal bleeding (Inactive) K62.5 Chest pain (Acute) R07.9 KENNETH and COPD overlap syndrome (Chronic) G47.33, J44.9 Smoking greater than 40 pack years (Chronic) F17.210 Chronic obstructive pulmonary disease (Chronic) J44.9 PAD (peripheral artery disease) (Chronic) I73.9 CAD (coronary artery disease) (Chronic) I25.10 Typical atrial flutter (Chronic) I48.3 Other specified cardiac device in situ (Chronic) Z95.818 Paroxysmal atrial fibrillation (Chronic) I48.0 Diabetes mellitus (Chronic) E11.9 Hypertension (Chronic) I10 Hyperlipidemia (Chronic) E78.5 Nicotine abuse (Chronic) Z72.0 Allergies seasonal Allergy (Uncoded 11/14/20 02:18) SOB Home Medications: Ambulatory Orders Medication Instructions Recorded Gabapentin [Neurontin] 1,200 mg PO TIDCM 12/07/15 metFORMIN HCl [Glucophage] 1,000 mg PO BIDCM 12/07/15 duloxetine 60 mg capsule,delayed 60 mg PO DAILY 01/13/18 release ferrous sulfate 325 mg (65 mg 325 mg PO DAILY tab 11/26/18 iron) tablet Albuterol IH (ProAir) [Proair Hfa] 2 puff INHALATION Q6H PRN PRN 11/09/19 Albuterol Sulfate 1 dose IH Q4H PRN PRN 11/09/19 Nitroglycerin 0.4 mg SL PRN PRN 11/09/19 pantoprazole 40 mg tablet,delayed 40 mg PO DAILY 11/11/19 release pregabalin 100 mg capsule 100 mg PO TID cap 11/11/19 ropinirole 0.25 mg tablet 0.5 mg PO QHS 11/11/19 tiotropium 2.5 mcg-olodaterol 2.5 2 puff INHALATION DAILY 11/11/19 mcg/actuation mist for inhalation trazodone 150 mg tablet 150 mg PO QHS 11/11/19 Loratadine 10 mg PO DAILY 04/30/20 aspirin 81 mg tablet,delayed 81 mg PO DAILY 05/24/20 release atorvastatin 80 mg tablet 80 mg PO QHS #90 tab 05/24/20 clopidogrel 75 mg tablet 75 mg PO DAILY #90 tab 05/24/20 furosemide 40 mg tablet 40 mg PO DAILY #90 tab 05/24/20 isosorbide mononitrate 120 mg 120 mg PO DAILY #90 tab 05/24/20 tablet,extended release 24 hr lisinopril 10 mg tablet 10 mg PO DAILY #90 tab 05/24/20 metoprolol succinate 50 mg 50 mg PO DAILY #90 tab 05/24/20 tablet,extended release 24 hr sotalol 120 mg tablet 120 mg PO BID #180 tab 05/24/20 Surgical History: Surgical History (Last Reviewed 11/14/20 @ 05:[address] 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 [place] Surgical History: coronary bypass surgery Psychiatric History: Depression Smoking Status: Current every day smoker Drugs: Marijuana - *Family History Maternal Family History: Family History (Last Reviewed 11/14/20 @ 05:[address] Jeferson Mcfarlane MD) Father CAD (coronary artery disease) COPD (chronic obstructive pulmonary disease) CHF (congestive heart failure) Mother COPD (chronic obstructive pulmonary disease) Paternal Family History: Family History (Last Reviewed 11/14/20 @ 05:[address] Jeferson Mcfarlane MD) Father CAD (coronary artery disease) COPD (chronic obstructive pulmonary disease) CHF (congestive heart failure) Mother COPD (chronic obstructive pulmonary disease) Review of Systems Constitutional: Denies: Chills, Fever HEENT: Denies: Head Aches, Sinus Congestion, Sinus Drainage Cardiovascular: Reports: Chest Pain, Edema, Orthopnea, Paroxysmal Noc. Dyspnea. Denies: Palpitations Respiratory: Reports: Cough. Denies: Shortness of breath at rest, Sputum production Gastrointestinal: Denies: Abdominal Pain, Nausea, Vomiting Genitourinary: Denies: Dysuria Musculoskeletal: Denies: Joint Pain, Joint Tenderness Skin: Denies: Rash, Wounds Neurological: Denies: Numbness, Tingling, Focal weakness Psychiatric: Denies: Anxiety, Depression, Homicidal Ideations, Suicidal Ideations Hematologic/ Lymphatic: Denies: Easy Bruising, Easy Bleeding VTE Information - Inpt Only VTE Present on Admission: No VTE Mechan Device Prophylaxis: None VTE Pharm Prophylaxis ordered?: Yes Patient Problems: Active and Suspected Problems (Last Reviewed 11/14/20 @ 05:[address] Jeferson Mcfarlane MD) Lower extremity edema (Acute) Chest pain (Acute) - Physical Exam Vitals/I&O's: Vital Signs Temp Pulse Resp BP Pulse Ox 97.4 F L 109 H 17 128/74 H 97 11/14/20 03:47 11/14/20 03:47 11/14/20 03:47 11/14/20 03:47 11/14/20 03:47 Oxygen Flow Rate (L/min) 3 Oxygen Delivery Method Nasal Cannula Weight: 101.4 kg Body Mass Index (BMI) 32.1 Finger Stick Blood Glucose 148 General: Alert, Oriented x3, Cooperative HEENT: Atraumatic, PERRLA, EOMI, Normocephalic Neck: Supple, No JVD, Negative Carotid Bruits Lungs: Wheezes - Mild, - Cardiovascular: Normal S1, Normal S2, No murmurs, Irregular Rate, Tachycardic Abdomen: Bowel Sounds Present, Soft, Non Tender Extremities: Capillary Refill Less than 3 Seconds, Edema - 3-4+ bilateral feet and bilateral lower legs. Skin: No rashes, No breakdown Musculoskeletal: No Tenderness to Palpation of Joints or Extremities Neurological: Cranial nerves II-XII grossly intact Psych/Mental Status: Normal Affect, Appropriate Microbiology Past 72 Hours 11/14/20 02:40 Mucosa - Nasopharyngeal SARS-CoV-2 Antigen (Rapid) - Final Laboratory Results 11/14/20 02:15: WBC 12.8 H, RBC 4.38 L, Hgb 12.5 L, Hct 42.1, MCV 96.1 H, MCH 28.5, MCHC 29.7 L, RDW Std Deviation 53.8 H, RDW Coeff of Arleen 15.2 H, Plt Count 240, MPV 10.4, Immature Gran % (Auto) 2.000 H, Neut % (Auto) 92.2 H, Lymph % (Auto) 3.5 L, [place] % (Auto) 1.6, Eos % (Auto) 0.3, Baso % (Auto) 0.4, Absolute Neuts (auto) 11.8 H, Absolute Lymphs (auto) 0.45 L, Nucleated RBC % 0 11/14/20 02:15: Sodium 137, Potassium 4.5, Chloride 103, Carbon Dioxide 28.0, Anion Gap 6, BUN 16, Creatinine 1.34 H, Estim Creat Clear Calc 64.31, Est GFR (MDRD) Af Amer 71, Est GFR (MDRD) Non-Af 59 L, BUN/Creatinine Ratio 11.9, Glucose 436 H, Calcium 8.8, Troponin I 0.083 H 11/14/20 02:15: B-Natriuretic Peptide 90.4 Assessment/Plan All Active Problems (Last Reviewed 11/14/20 @ 05:[address] Jeferson Mcfarlane MD) Lower extremity edema (Acute) Chest pain (Acute) The patient is a 55 year old M with a significant history of CAD status post CABG and 9 coronary stents; paroxysmal A. fib; oral sleep apnea and COPD overlap syndrome and tobacco abuse who presents to the emergency department with 1 week history of progressively worsening bilateral leg swelling; abdominal bloating; 1 month of shortness of breath and 2 months with radiating chest pain who was found to have slightly elevated troponin and opacity on right lower and right middle lungs. Acute on chronic diastolic heart failure Rapid COVID-19 antigen test was negative. Of note patient's symptomatology and imaging is not classic for Covid. Stress test report on 04/29/20/04/30/2020. Stress test reports gated ejection fraction was 59%. Normal pharmacological myocardial perfusion stress test. No ischemia noted. Preserved ejection fraction. Atrial flutter with controlled response rate noted. Echocardiogram on 03/29/2019: Estimated ejection fraction was 55%. There was evidence of diastolic dysfunction. Mild mitral valve insufficiency. Mild to moderate tricuspid valve insufficiency. Right ventricular systolic pressure was 47 mmHg. Echo not ordered since patient had a stress test that showed ejection fraction. Last echocardiogram as above. Place on monitored bed on progressive care unit. Weight on admission to the floor; and then daily Strict I&O's Impression of chest x-ray by radiology: Possible early right lower lobe infiltrates. CXR independently interpreted showed right lobe opacity and indistinct right heart border. BNP was only mildly elevated. Diuresis with Lasix 40 mg IV twice daily. At home patient is on Lasix 40 mg p.o. daily and he doubled the dose as in HPI. Monitor electrolytes and renal function Trend blood pressure Titrate diuretics and heart failure/blood pressure medications with blood pressure. Carroll wrap to bilateral lower extremities. Elevate bilateral lower extremities. Fluid restriction of 1500 mls daily Cardiac and calorie controlled diet. Chest pain and elevated troponin/history of CAD EKG with new T wave inversion in leads V4, and V5. More pronounced T wave inversion in lead V6 compared to previous. Also 2 inversions in aVL. Old EKG was reviewed and compared to new. Troponin was mildly elevated. Trend. Discussed with emergent department after who will give full dose aspirin at emergency department. Continue patient on daily baby aspirin. Imdur continued High intensity statin continued. Plavix continued Atrial fibrillation with RVR Patient with rates of 100-110 Reportedly was on Eliquis but Eliquis was discontinued due to profuse rectal bleeding requiring blood transfusion. Sotalol continued. Metoprolol succinate 50 mg p.o. daily continued. Placed on telemetry. Will give a one-time dose of metoprolol IV Continue rate control medication if heart rate is more than 110 and persistent. NIGEL Baseline creatinine is around 1. Presentation creatinine was 1.34 BUN is normal at 16. BUN over creatinine is 11.9. Likely secondary cardiorenal syndrome or Lasix use. Hold lisinopril as patient does not have reduced ejection fraction. Lasix as above. Trend BMP. Diabetes with neuropathy Patient with severe hyperglycemia presentation. Discussed emergent department doctor to give short acting insulin at emergency department. Hold Metformin since it is too early in his admission. Accu-Chek before every meal case of correction scale insulin ordered. Patient insulin ordered. Cymbalta continued. Gabapentin continued but adjusted secondary to NIGEL. Pregabalin continued. Depression/insomnia Trazodone continued Cymbalta continued. COPD As needed albuterol continued Obstructive sleep apnea Home CPAP with oxygen bled in continued. Restless leg syndrome Requip continued GERD Protonix continued Anemia Chronic Ferrous sulfate continued DVT prophylaxis Subcutaneous Lovenox ordered. Inpatient E&M: [id number] Init Hosp L3
[2020-11-14] MEDS: Insulin Lispro 100 UNIT/ML INSULN.PEN 6 UNIT SC (04:21)
--- NOTE | 2020-11-14 05:45 | EKG12_ITS ---
Test Reason : CP ADMIT Blood Pressure : / mmHG Vent. Rate : 104 BPM Atrial Rate : 312 BPM P-R Int : 000 ms QRS Dur : 080 ms QT Int : 376 ms P-R-T Axes : 000 057 149 degrees QTc Int : 494 ms Atrial flutter with variable A-V block ST & T wave abnormality, consider lateral ischemia Abnormal ECG Confirmed by COLT LOMELI, TAMMY ([id number]), videotape editor ONI CRAFT ([id number]) on 11/22/2020 11:38:51 AM Referred By: RICO Confirmed By:TAMMY GREGORY MD
[2020-11-14] MEDS: Gabapentin 300 MG Capsule 900 MG PO ×3 (05:52→16:26)
[2020-11-14] MEDS: Pregabalin 50 MG Capsule 100 MG PO ×3 (05:52→21:14)
[2020-11-14] MEDS: 0.9% Saline Lock 10 ML Syringe IV ×3 (05:53→17:50)
[2020-11-14] MEDS: Metoprolol Tartrate 5 MG/5 ML Vial IV (05:53)
--- NOTE | 2020-11-14 06:18 | PCS.PANDOC ---
PANDEMIC DOCUMENTATION INITIATED: Date: 11/14/2020 Time: 04:30
[2020-11-14] MEDS: Ipratropium/Albuterol Sulfate 3 ML AMPUL.NEB INHALATION ×3 (06:57→19:56)
[2020-11-14] MEDS: Insulin Lispro 100 UNIT/ML INSULN.PEN SC ×4 (07:44→21:11)
[2020-11-14 07:56] LABS: Bedside Glucose 309 mg/dL (70-110)
[2020-11-14] MEDS: Furosemide 40 MG/4 ML Vial IV ×2 (10:33→17:50)
[2020-11-14] MEDS: Metoprolol(XL)Succ 50 MG Tablet PO (10:34)
[2020-11-14] MEDS: Sotalol Hydrochloride 80 MG Tablet 120 MG PO ×2 (10:34→21:11)
[2020-11-14] MEDS: Clopidogrel Bisulfate 75 MG Tablet PO (10:34)
[2020-11-14] MEDS: Enoxaparin 40 MG/0.4 ML Syringe SC (10:34)
[2020-11-14] MEDS: Aspirin E.C. 81 MG Tablet PO (10:34)
[2020-11-14] MEDS: Pantoprazole Sodium 40 MG Tablet PO (10:34)
[2020-11-14] MEDS: Loratadine 10 MG Tablet PO (10:34)
[2020-11-14] MEDS: DULoxetine Hcl 60 MG Capsule PO (10:34)
--- NOTE | 2020-11-14 11:10 | CASEMGMT ---
Addendum entered by Lea Loredo 11/14/20 14:45: 1440 Pt still sleeping without distress and does not awaken to verbal stimuli or knock on door at this time. Per Ching HERNANDEZ, pt has been sleeping for most of day and does not awaken for long. Enrique HERNANDEZ CM Addendum entered by Lea Loredo 11/14/20 13:49: 1340 Back to room to complete assessment and pt is still sleeping without distress at this time. Pt does not awaken to verbal stimuli or knock on door at this time. Will attempt again later. Enrique HERNANDEZ CM Original Note: This RN CM to room to complete CM assessment at this time. Pt barely opens eyes to voice and then falls back to sleep after one question answered and is snoring immediately. Pt does not answer any more questions at this time. Will attempt again later. Enrique HERNANDEZ CM
[2020-11-14] MEDS: Ferrous Sulfate 325 MG Tablet PO (11:25)
[2020-11-14 11:31] LABS: Bedside Glucose 378 mg/dL (70-110)
--- NOTE | 2020-11-14 12:07 | PN_ITS ---
<Benitez Munoz - Last Filed: 11/14/20 12:07> Patient Problems: Active and Suspected Problems (Last Reviewed 11/14/20 @ 05:[address] Jeferson Mcfarlane MD) Lower extremity edema (Acute) Chest pain (Acute) Reason for Visit: CHF Subjective: Pt reports significant pain with swelling of his LE. He has ongoing SOB. He uses 3lpm during the day and 4lpm at night at baseline. He is currently stable on his baseline O2. He did report some chest tightness. No LH, or palp. Vitals/I&O's: Vital Signs Temp Pulse Resp BP Pulse Ox 97.6 F L 101 H 14 142/72 H 98 11/14/20 10:30 11/14/20 10:34 11/14/20 10:30 11/14/20 10:34 11/14/20 10:30 Oxygen Flow Rate (L/min) 3 Oxygen Delivery Method Nasal Cannula Weight: 220 lb 0.341 oz Body Mass Index (BMI) 33.4 Finger Stick Blood Glucose 148 Intake and Output for Last 24 Hours 11/12/20 11/13/20 11/14/20 23:59 23:59 23:59 Intake Total 800 / 800 Output Total 1400 / 1400 Balance -600 / -600 General: Alert, Oriented x3, Cooperative HEENT: Atraumatic, PERRLA, EOMI, Normocephalic Neck: Supple, No JVD, Negative Carotid Bruits Lungs: Clear to auscultation, Normal air movement Cardiovascular: No murmurs, Irregular Rate Abdomen: Bowel Sounds Present, Soft, Non Tender Extremities: Capillary Refill Less than 3 Seconds, Edema Skin: No rashes, No breakdown Musculoskeletal: No Tenderness to Palpation of Joints or Extremities Neurological: Cranial nerves II-XII grossly intact Psych/Mental Status: Normal Affect, Appropriate, Alert and oriented to time, place, person, mood and affect Microbiology Past 72 Hours 11/14/20 02:40 Mucosa - Nasopharyngeal SARS-CoV-2 Antigen (Rapid) - Final Laboratory Results 11/14/20 02:15: WBC 12.8 H, RBC 4.38 L, Hgb 12.5 L, Hct 42.1, MCV 96.1 H, MCH 28.5, MCHC 29.7 L, RDW Std Deviation 53.8 H, RDW Coeff of Arleen 15.2 H, Plt Count 240, MPV 10.4, Immature Gran % (Auto) 2.000 H, Neut % (Auto) 92.2 H, Lymph % (Auto) 3.5 L, Lynn % (Auto) 1.6, Eos % (Auto) 0.3, Baso % (Auto) 0.4, Absolute Neuts (auto) 11.8 H, Absolute Lymphs (auto) 0.45 L, Nucleated RBC % 0 11/14/20 02:15: Sodium 137, Potassium 4.5, Chloride 103, Carbon Dioxide 28.0, Anion Gap 6, BUN 16, Creatinine 1.34 H, Estim Creat Clear Calc 64.31, Est GFR (MDRD) Af Amer 71, Est GFR (MDRD) Non-Af 59 L, BUN/Creatinine Ratio 11.9, Glucose 436 H, Calcium 8.8, Troponin I 0.083 H 11/14/20 02:15: B-Natriuretic Peptide 90.4 11/14/20 05:38: Troponin I 0.059 H 11/14/20 07:43: POC Glucose 309 H 11/14/20 08:02: Troponin I 0.052 H 11/14/20 11:24: POC Glucose 378 H Current Medications Acetaminophen (Acetaminophen 325 Mg Tablet) 650 mg PO Q6H PRN PRN PRN Reason: Pain Score 1-10/Temp > 100.7 F Albuterol Sulfate (Albuterol 2.5 Mg/3 Ml Vial.Neb.) 2.5 mg INHALATION Q2H PRN PRN PRN Reason: SOB/Wheezing Albuterol/Ipratropium (Ipratropium/Albuterol Sulfate 3 Ml Ampul.Neb) 3 ml INHALATION Q6HWA.RT LYNDA Last Admin: 11/14/20 06:57 Dose: 3 ml Documented by: Aspirin (Aspirin E.C. 81 Mg Tablet) 81 mg PO DAILY LYNDA Last Admin: 11/14/20 10:34 Dose: 81 mg Documented by: Atorvastatin Calcium (Atorvastatin Calcium 80 Mg Tablet) 80 mg PO QHS LYNDA Clopidogrel Bisulfate (Clopidogrel Bisulfate 75 Mg Tablet) 75 mg PO DAILY [facility] Last Admin: 11/14/20 10:34 Dose: 75 mg Documented by: Dextrose (Dextrose 50%-Water 25 Gm/50 Ml Disp.Syrin) 0 gm IV X1 PRN; Protocol PRN Reason: Hypoglycemia Duloxetine HCl (Duloxetine Hcl 60 Mg Capsule) 60 mg PO DAILY [facility] Last Admin: 11/14/20 10:34 Dose: 60 mg Documented by: Enoxaparin Sodium (Enoxaparin 40 Mg/0.4 Ml Syringe) 40 mg SC DAILY [facility] Last Admin: 11/14/20 10:34 Dose: 40 mg Documented by: Ferrous Sulfate (Ferrous Sulfate 325 Mg Tablet) 325 mg PO LUNCH [facility] Last Admin: 11/14/20 11:25 Dose: 325 mg Documented by: Furosemide (Furosemide 40 Mg/4 Ml Vial) 40 mg IV BID@1000,1800 [facility] Last Admin: 11/14/20 10:33 Dose: 40 mg Documented by: Gabapentin (Gabapentin 300 Mg Capsule) 900 mg PO TIDCM [facility] Last Admin: 11/14/20 11:25 Dose: 900 mg Documented by: Glucagon (Glucagon 1 Mg/Ml Syringe) 1 mg IM .X1 PRN PRN Reason: Hypoglycemia Guaifenesin (Guaifenesin 10 Ml Udc (200mg/10ml)) 10 ml PO Q6H PRN PRN PRN Reason: COUGH Hydralazine HCl (Hydralazine 20 Mg/Ml Vial) 5 mg IV Q4H PRN PRN PRN Reason: SBP > 160 OR DBP > 120 Sodium Chloride () 250 mls @ 15 mls/hr IV .[id number] PRN PRN Reason: Saline Flush Insulin Glargine (Insulin Glargine 100 Units/Ml Pen) 18 units SC BREAKFAST [facility] Last Admin: 11/14/20 07:44 Dose: 18 units Documented by: Insulin Human Lispro (Insulin Lispro 100 Unit/Ml Insuln.Pen) 0 unit SC ACHS [facility]; Protocol Last Admin: 11/14/20 11:25 Dose: 6 units Documented by: Isosorbide Mononitrate (Isosorbide Mononitrate 120 Mg Tablet) 120 mg PO DAILY [facility] Last Admin: 11/14/20 10:34 Dose: 120 mg Documented by: Loratadine (Loratadine 10 Mg Tablet) 10 mg PO DAILY [facility] Last Admin: 11/14/20 10:34 Dose: 10 mg Documented by: Melatonin (Melatonin 3 Mg Tablet) 3 mg PO QHS PRN PRN PRN Reason: INSOMNIA Metoprolol Succinate (Metoprolol(Xl)Succ 50 Mg Tablet) 50 mg PO DAILY [facility] Last Admin: 11/14/20 10:34 Dose: 50 mg Documented by: Nitroglycerin (Nitroglycerin (Inpatient Use) 0.4 Mg Tab.Subl) 0.4 mg SUBLINGUAL Q5M PRN PRN Reason: CARDIAC/CHEST PAIN Ondansetron HCl (Ondansetron 4 Mg/2 Ml Vial) 4 mg IV Q8H PRN PRN PRN Reason: NAUSEA/VOMITING Pantoprazole Sodium (Pantoprazole Sodium 40 Mg Tablet) 40 mg PO DAILY [facility] Last Admin: 11/14/20 10:34 Dose: 40 mg Documented by: Pramipexole Dihydrochloride (Pramipexole Di-Hcl 0.125 Mg Tablet) 0.125 mg PO QHS [facility] Pregabalin (Pregabalin 50 Mg Capsule) 100 mg PO TID [facility] Last Admin: 11/14/20 05:52 Dose: 100 mg Documented by: Senna/Docusate Sodium (Senna/Docusate Sodium 1 Tablet) 2 tablet PO BID PRN PRN PRN Reason: Constipation Sodium Chloride (0.9% Saline Lock 10 Ml Syringe) 10 - 40 ml IV UD PRN PRN Reason: SALINE FLUSH Last Admin: 11/14/20 10:33 Dose: 10 ml Documented by: Sotalol HCl (Sotalol Hydrochloride 80 Mg Tablet) 120 mg PO BID [facility] Last Admin: 11/14/20 10:34 Dose: 120 mg Documented by: Trazodone HCl (Trazodone 100 Mg Tablet) 150 mg PO QHS [facility] STROKE Vital Signs/Narrative: Vital Signs Temp Pulse Resp BP Pulse Ox 11/14/20 10:34 101 H 142/72 H 11/14/20 10:30 97.6 F L 101 H 14 142/72 H 98 Medical Necessity - Tobacco Use Smoking Status: Current every day smoker Assessment/Plan All Active Problems (Last Reviewed 11/14/20 @ 05:[address] Jeferson Mcfarlane MD) Lower extremity edema (Acute) Chest pain (Acute) 1. Acute on chronic diastolic CHF - continue lasix. LE edema improved. Covid neg. CXR possible infiltrate. Some leukocytosis with left shift. Does not appear infectious at this time. However, BNP neg so if he does not improved consider abx. He is afebrile. Check tsh. Echo 03/18 with EF 55%, diastolic dysfunction, 1-2+ TVI, RVSP 47 mmHg, 1+ MVI, negative bubble -obtain new echo 2. Indeterminate troponin, hx CAD - hx recent chest pain, tightness. Consult cardiology. Hx CABGx3, stents. Continue aspirin, statin, plavix, imdur, metoprolol. echo ordered as above. 3. Afib RVR, A flutter - improved. Off eliquis due to hx rectal bleed. Continue Sotalol, metoprolol 4. DMt2 with hyperglycemia - metformin held. lantus started + SSI. check A1C. 5. KENNETH - he wears NC @ 4lpm at night. 6. COPD with chronic hypoxic respiratory failure - no exacerbation at this time. continue aerosols, incentive spirometer. At baseline O2 (3lpm day 4lpm night) 7. Suspected CKDIII - trend renal function DVT ppx: lovenox This patient was seen by Benitez Munoz PA-C under the supervision of Dr. Cancino <Geno Cancino - Last Filed: 11/14/20 16:06> Vitals/I&O's: Vital Signs Temp Pulse Resp BP Pulse Ox 97.6 F L 78 18 142/72 H 98 11/14/20 10:30 11/14/20 15:00 11/14/20 12:51 11/14/20 10:34 11/14/20 10:30 Oxygen Flow Rate (L/min) 3 Oxygen Delivery Method Nasal Cannula Weight: 220 lb 0.341 oz Body Mass Index (BMI) 33.4 Finger Stick Blood Glucose 148 Intake and Output for Last 24 Hours 11/12/20 11/13/20 11/14/20 23:59 23:59 23:59 Intake Total 800 / 800 Output Total 1400 / 1400 Balance -600 / -600 Microbiology Past 72 Hours 11/14/20 02:40 Mucosa - Nasopharyngeal SARS-CoV-2 Antigen (Rapid) - Final Laboratory Results 11/14/20 02:15: WBC 12.8 H, RBC 4.38 L, Hgb 12.5 L, Hct 42.1, MCV 96.1 H, MCH 28.5, MCHC 29.7 L, RDW Std Deviation 53.8 H, RDW Coeff of Arleen 15.2 H, Plt Count 240, MPV 10.4, Immature Gran % (Auto) 2.000 H, Neut % (Auto) 92.2 H, Lymph % (Auto) 3.5 L, Lynn % (Auto) 1.6, Eos % (Auto) 0.3, Baso % (Auto) 0.4, Absolute Neuts (auto) 11.8 H, Absolute Lymphs (auto) 0.45 L, Nucleated RBC % 0 11/14/20 02:15: Sodium 137, Potassium 4.5, Chloride 103, Carbon Dioxide 28.0, Anion Gap 6, BUN 16, Creatinine 1.34 H, Estim Creat Clear Calc 64.31, Est GFR (MDRD) Af Amer 71, Est GFR (MDRD) Non-Af 59 L, BUN/Creatinine Ratio 11.9, Glucose 436 H, Calcium 8.8, Troponin I 0.083 H 11/14/20 02:15: B-Natriuretic Peptide 90.4 11/14/20 02:15: Hemoglobin A1c Pending 11/14/20 05:38: Troponin I 0.059 H 11/14/20 07:43: POC Glucose 309 H 11/14/20 08:02: Troponin I 0.052 H 11/14/20 08:02: TSH 0.53 11/14/20 11:24: POC Glucose 378 H Current Medications Acetaminophen (Acetaminophen 325 Mg Tablet) 650 mg PO Q6H PRN PRN PRN Reason: Pain Score 1-10/Temp > 100.7 F Albuterol Sulfate (Albuterol 2.5 Mg/3 Ml Vial.Neb.) 2.5 mg INHALATION Q2H PRN PRN PRN Reason: SOB/Wheezing Albuterol/Ipratropium (Ipratropium/Albuterol Sulfate 3 Ml Ampul.Neb) 3 ml INHALATION Q6HWA.RT LYNDA Last Admin: 11/14/20 12:51 Dose: 3 ml Documented by: Aspirin (Aspirin E.C. 81 Mg Tablet) 81 mg PO DAILY LYNDA Last Admin: 11/14/20 10:34 Dose: 81 mg Documented by: Atorvastatin Calcium (Atorvastatin Calcium 80 Mg Tablet) 80 mg PO QHS LYNDA Clopidogrel Bisulfate (Clopidogrel Bisulfate 75 Mg Tablet) 75 mg PO DAILY [facility] Last Admin: 11/14/20 10:34 Dose: 75 mg Documented by: Dextrose (Dextrose 50%-Water 25 Gm/50 Ml Disp.Syrin) 0 gm IV X1 PRN; Protocol PRN Reason: Hypoglycemia Duloxetine HCl (Duloxetine Hcl 60 Mg Capsule) 60 mg PO DAILY [facility] Last Admin: 11/14/20 10:34 Dose: 60 mg Documented by: Enoxaparin Sodium (Enoxaparin 40 Mg/0.4 Ml Syringe) 40 mg SC DAILY [facility] Last Admin: 11/14/20 10:34 Dose: 40 mg Documented by: Ferrous Sulfate (Ferrous Sulfate 325 Mg Tablet) 325 mg PO LUNCH [facility] Last Admin: 11/14/20 11:25 Dose: 325 mg Documented by: Furosemide (Furosemide 40 Mg/4 Ml Vial) 40 mg IV BID@1000,1800 [facility] Last Admin: 11/14/20 10:33 Dose: 40 mg Documented by: Gabapentin (Gabapentin 300 Mg Capsule) 900 mg PO TIDCM [facility] Last Admin: 11/14/20 11:25 Dose: 900 mg Documented by: Glucagon (Glucagon 1 Mg/Ml Syringe) 1 mg IM .X1 PRN PRN Reason: Hypoglycemia Guaifenesin (Guaifenesin 10 Ml Udc (200mg/10ml)) 10 ml PO Q6H PRN PRN PRN Reason: COUGH Hydralazine HCl (Hydralazine 20 Mg/Ml Vial) 5 mg IV Q4H PRN PRN PRN Reason: SBP > 160 OR DBP > 120 Sodium Chloride () 250 mls @ 15 mls/hr IV .[id number] PRN PRN Reason: Saline Flush Insulin Glargine (Insulin Glargine 100 Units/Ml Pen) 18 units SC BREAKFAST [facility] Last Admin: 11/14/20 07:44 Dose: 18 units Documented by: Insulin Human Lispro (Insulin Lispro 100 Unit/Ml Insuln.Pen) 0 unit SC ACHS [facility]; Protocol Last Admin: 11/14/20 11:25 Dose: 6 units Documented by: Isosorbide Mononitrate (Isosorbide Mononitrate 120 Mg Tablet) 120 mg PO DAILY [facility] Last Admin: 11/14/20 10:34 Dose: 120 mg Documented by: Loratadine (Loratadine 10 Mg Tablet) 10 mg PO DAILY [facility] Last Admin: 11/14/20 10:34 Dose: 10 mg Documented by: Melatonin (Melatonin 3 Mg Tablet) 3 mg PO QHS PRN PRN PRN Reason: INSOMNIA Metoprolol Succinate (Metoprolol(Xl)Succ 50 Mg Tablet) 50 mg PO DAILY [facility] Last Admin: 11/14/20 10:34 Dose: 50 mg Documented by: Nitroglycerin (Nitroglycerin (Inpatient Use) 0.4 Mg Tab.Subl) 0.4 mg SUBLINGUAL Q5M PRN PRN Reason: CARDIAC/CHEST PAIN Ondansetron HCl (Ondansetron 4 Mg/2 Ml Vial) 4 mg IV Q8H PRN PRN PRN Reason: NAUSEA/VOMITING Pantoprazole Sodium (Pantoprazole Sodium 40 Mg Tablet) 40 mg PO DAILY [facility] Last Admin: 11/14/20 10:34 Dose: 40 mg Documented by: Pramipexole Dihydrochloride (Pramipexole Di-Hcl 0.125 Mg Tablet) 0.125 mg PO QHS [facility] Pregabalin (Pregabalin 50 Mg Capsule) 100 mg PO TID [facility] Last Admin: 11/14/20 14:15 Dose: 100 mg Documented by: Senna/Docusate Sodium (Senna/Docusate Sodium 1 Tablet) 2 tablet PO BID PRN PRN PRN Reason: Constipation Sodium Chloride (0.9% Saline Lock 10 Ml Syringe) 10 - 40 ml IV UD PRN PRN Reason: SALINE FLUSH Last Admin: 11/14/20 10:33 Dose: 10 ml Documented by: Sotalol HCl (Sotalol Hydrochloride 80 Mg Tablet) 120 mg PO BID [facility] Last Admin: 11/14/20 10:34 Dose: 120 mg Documented by: Trazodone HCl (Trazodone 100 Mg Tablet) 150 mg PO QHS [facility] STROKE Vital Signs/Narrative: Vital Signs Pulse Resp 11/14/20 15:00 78 11/14/20 12:51 80 18 Assessment/Plan Patient seen by Benitez Munoz PA-C under my supervision Patient seen and examined. He was admitted with a complaint of lower extremity edema medically managed for acute on chronic diastolic CHF. BNP however was only 90 chest x-ray showed possible early right lower lobe infiltrate. Currently on IV Lasix. Patient has no complaints. Swelling in his lower extremities is getting better. He denies any fever chills or cough. Review of systems otherwise negative. O/e: Vital Signs Temp Pulse Resp BP Pulse Ox 97.6 F L 78 18 142/72 H 98 11/14/20 10:30 11/14/20 15:00 11/14/20 12:51 11/14/20 10:34 11/14/20 10:30 General: Alert, Oriented x3, Cooperative HEENT: Atraumatic, PERRLA, EOMI, Normocephalic Neck: Supple, No JVD, Negative Carotid Bruits Lungs: Clear to auscultation, Normal air movement Cardiovascular: No murmurs, Irregular Rate Abdomen: Bowel Sounds Present, Soft, Non Tender Extremities: Capillary Refill Less than 3 Seconds, both LEs wrapped in WENDY bandage Skin: No rashes, No breakdown Musculoskeletal: No Tenderness to Palpation of Joints or Extremities Neurological: Cranial nerves II-XII grossly intact Psych/Mental Status: Normal Affect, Appropriate, Alert and oriented to time, place, person, mood and affect Plan is continue diuresing with IV Lasix. 2D echo ordered. Continue titrating oxygen to maintain saturation above 90%. He wears 4 L of oxygen at night 3 L during the day. Troponin was intermediate at 0.083 on admission and trended on 0.052. Cardiology on board and recommends following up on repeat 2D echo. Continue breathing treatments with bronchodilators. On Sotalol and metoprolol for A. fib. Not on anticoagulation on account of history of GI bleed. Rest as per Benitez Munoz PA-C's note, which I have reviewed and endorsed. Inpatient E&M: 81147 Subs Hosp L2
--- NOTE | 2020-11-14 12:22 | ECHOCS_ITS ---
Reason For Study: Chest Pain, CHF, AFlutter Procedure This was a 2D Doppler, Color Flow transthoracic echocardiogram. The study was technically difficult. Contrast injection was performed. Exam performed portable in patient room. Left Ventricle Normal LV size. The estimated ejection fraction is 70 %. Diastolic function is indeterminate. No regional wall motion abnormalities noted. Right Ventricle Normal RV size. Normal systolic function. Atria The left atrium is mildly enlarged. The right atrium is mildly enlarged. No doppler evidence for ASD. Mitral Valve There is no mitral valve stenosis. Mild (1+) mitral valve insufficiency. Tricuspid Valve There is no tricuspid stenosis. Mild tricuspid valve insufficiency. Pulmonary artery systolic pressure is 60-65 mmHg. Aortic Valve Trisinus/trileaflet aortic valve. There is no aortic stenosis. No aortic valve insufficiency. Pulmonic Valve There is no pulmonic valvular stenosis. No pulmonic valve insufficiency. Great Vessels Normal aortic root. The inferior vena cava is dilated. Pericardium/Pleural No pericardial effusion. Medication Diluted definity 2ml given slow IV push to enhance endocardial definition. MMode/2D Measurements & Calculations LVIDd: 4.2 cm IVSd: 1.5 cm LA dimension: 4.9 cm LVIDs: 3.0 cm LVPWd: 1.6 cm FS: 28.1 % LAV(MOD-sp4): 81.4 ml LA A4 area: 25.5 cm2 RA A4 area: 21.1 cm2 Time Measurements MV dec time: 0.19 sec Doppler Measurements & Calculations MV E max mat: 112.1 cm/sec Lat Peak E' Mat: 9.6 cm/sec Med Peak E' Mat: 11.3 cm/sec MV A max mat: 32.9 cm/sec E/E' lat: 11.7 E/E' med: 9.9 MV E/A: 3.4 Ao V2 max: 92.7 cm/sec LV V1 max: 93.5 cm/sec TR max mat: 358.5 cm/sec Ao max P.4 mmHg LV V1 max P.5 mmHg TR max P.4 mmHg Interpretation Summary Diastolic function is indeterminate. Mild (1+) mitral valve insufficiency. Pulmonary artery systolic pressure is 60-65 mmHg. The inferior vena cava is dilated The estimated ejection fraction is 70 %. Ordering Physician: Benitez Munoz Referring Physician: Blaze Louis Performed By: Arvind Montez RCS
[2020-11-14 14:03] LABS: Thyroid Stim Hormone (TSH) 0.53 uIU/mL (0.358-3.74)
--- NOTE | 2020-11-14 15:56 | CON.PCM_ITS ---
Reason for Consult Date of Consultation: 11/14/20 Reason for Consultation: CAD, CHF, A-flutter, indeterminate troponin, chest pain History of Present Illness: The patient is a 55 year old M [presenting to [facility] because of worsening lower extremity edema. Patient is a poor historian. He keeps dozing off and is unable to give a good history. History was obtained partially from the patient and partially from medical records. It appears that patient comes in because of lower extremity edema. He says he has been having chest pain on and off for a long time. No recent worsening. He says he cannot lie down flat because of shortness of breath and this has been going on for a long time as well. Review of systems: Patient is unable to give review of systems.] Past Medical History Allergies/Adverse Reactions: Allergies seasonal Allergy (Uncoded 11/14/20 02:18) SOB Home Medications: Ambulatory Orders Medication Instructions Recorded Gabapentin [Neurontin] 1,200 mg PO TIDCM 12/07/15 metFORMIN HCl [Glucophage] 1,000 mg PO BIDCM 12/07/15 duloxetine 60 mg capsule,delayed 60 mg PO DAILY 01/13/18 release ferrous sulfate 325 mg (65 mg 325 mg PO DAILY tab 11/26/18 iron) tablet Albuterol IH (ProAir) [Proair Hfa] 2 puff INHALATION Q6H PRN PRN 11/09/19 Albuterol Sulfate 1 dose IH Q4H PRN PRN 11/09/19 Nitroglycerin 0.4 mg SL PRN PRN 11/09/19 pantoprazole 40 mg tablet,delayed 40 mg PO DAILY 11/11/19 release pregabalin 100 mg capsule 100 mg PO TID cap 11/11/19 ropinirole 0.25 mg tablet 0.5 mg PO QHS 11/11/19 tiotropium 2.5 mcg-olodaterol 2.5 2 puff INHALATION DAILY 11/11/19 mcg/actuation mist for inhalation trazodone 150 mg tablet 150 mg PO QHS 11/11/19 Loratadine 10 mg PO DAILY 04/30/20 aspirin 81 mg tablet,delayed 81 mg PO DAILY 05/24/20 release atorvastatin 80 mg tablet 80 mg PO QHS #90 tab 05/24/20 clopidogrel 75 mg tablet 75 mg PO DAILY #90 tab 05/24/20 furosemide 40 mg tablet 40 mg PO DAILY #90 tab 05/24/20 isosorbide mononitrate 120 mg 120 mg PO DAILY #90 tab 05/24/20 tablet,extended release 24 hr lisinopril 10 mg tablet 10 mg PO DAILY #90 tab 05/24/20 metoprolol succinate 50 mg 50 mg PO DAILY #90 tab 05/24/20 tablet,extended release 24 hr sotalol 120 mg tablet 120 mg PO BID #180 tab 05/24/20 Past Medical History (Chronic Problems): Chronic Problems (Last Reviewed 11/14/20 @ 05:[address] Jeferson Mcfarlane MD) KENNETH and COPD overlap syndrome (Chronic) Smoking greater than 40 pack years (Chronic) Chronic obstructive pulmonary disease (Chronic) PAD (peripheral artery disease) (Chronic) CAD (coronary artery disease) (Chronic) Hx of CABG (Chronic) CABG X 3 vessels, CARTER to LAD, SVG to OM1, SVG to OM3 11/03 History of open reduction and internal fixation (ORIF) procedure (Chronic) Left lower extremity Typical atrial flutter (Chronic) Other specified cardiac device in situ (Chronic) Presence of coronary angioplasty implant and graft (Chronic) February 2005 IVUS of LAD, May 2005 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 [place] Paroxysmal atrial fibrillation (Chronic) Diabetes mellitus (Chronic) Hypertension (Chronic) Hyperlipidemia (Chronic) Nicotine abuse (Chronic) Surgical History: coronary bypass surgery Psychiatric History: Depression - *Family History Maternal Family History: Family History (Last Reviewed 11/14/20 @ 05:[address] Jeferson Mcfarlane MD) Father CAD (coronary artery disease) COPD (chronic obstructive pulmonary disease) CHF (congestive heart failure) Mother COPD (chronic obstructive pulmonary disease) History Items: No pertinent history Paternal Family History: Family History (Last Reviewed 11/14/20 @ 05:[address] Jeferson Mcfarlane MD) Father CAD (coronary artery disease) COPD (chronic obstructive pulmonary disease) CHF (congestive heart failure) Mother COPD (chronic obstructive pulmonary disease) History Items: No pertinent history Smoking Status: Current every day smoker Drugs: Marijuana Objective: Vital Signs Temp Pulse Resp BP Pulse Ox 97.6 F L 78 18 142/72 H 98 11/14/20 10:30 11/14/20 15:00 11/14/20 12:51 11/14/20 10:34 11/14/20 10:30 Oxygen Flow Rate (L/min) 3 Oxygen Delivery Method Nasal Cannula Weight: 220 lb 0.341 oz Body Mass Index (BMI) 33.4 Finger Stick Blood Glucose 148 Intake and Output for Last 24 Hours 11/12/20 11/13/20 11/14/20 23:59 23:59 23:59 Intake Total 800 / 800 Output Total 1400 / 1400 Balance -600 / -600 General: - - Patient is arousable but keeps dozing off HEENT: Atraumatic Oral: Moist Mucosa Neck: Supple Lungs: Clear to auscultation Cardiovascular: Irregular Rhythm Abdomen: Soft Extremities: Bilateral Edema +2 11/14/20 02:15: WBC 12.8 H, RBC 4.38 L, Hgb 12.5 L, Hct 42.1, MCV 96.1 H, MCH 28.5, MCHC 29.7 L, Plt Count 240, MPV 10.4, Immature Gran % (Auto) 2.000 H, Neut % (Auto) 92.2 H, Lymph % (Auto) 3.5 L, [place] % (Auto) 1.6, Eos % (Auto) 0.3, Baso % (Auto) 0.4, Absolute Neuts (auto) 11.8 H, Nucleated RBC % 0 11/14/20 02:15: Sodium 137, Potassium 4.5, Chloride 103, Carbon Dioxide 28.0, Anion Gap 6, BUN 16, Creatinine 1.34 H, Est GFR (MDRD) Af Amer 71, Est GFR (MDRD) Non-Af 59 L, BUN/Creatinine Ratio 11.9, Glucose 436 H, Calcium 8.8, Troponin I 0.083 H 11/14/20 02:15: B-Natriuretic Peptide 90.4 11/14/20 05:38: Troponin I 0.059 H 11/14/20 08:02: Troponin I 0.052 H Rhythm: EKG: ECHO: Stress Test: Cardiac Cath: PCI: CT Surgery: Holter monitor: EPS: PPM: CXR: Chest CT Scan: Assessment/Plan 1. CHF: Patient does have lower extremity edema that he states is new. Agree with treating him with Lasix. Agree with checking a 2D echo. Patient's creatinine is slightly elevated. Recheck creatinine tomorrow. 2. Chest pain: Patient states that he has had chest pain for a long time. He has not had any new worsening. Will monitor. He had a stress test in April that was negative for ischemia. 2. Coronary artery disease: Continue present management. Will monitor.
[2020-11-14] MEDS: traMADol 50 MG Tablet PO ×2 (16:26→22:34)
[2020-11-14 16:40] LABS: Bedside Glucose 238 mg/dL (70-110)
--- NOTE | 2020-11-14 20:02 | NURSING ---
Emergency charting in effect.
[2020-11-14] MEDS: Atorvastatin Calcium 80 MG Tablet PO (21:09)
[2020-11-14] MEDS: Pramipexole Di-HCl 0.125 MG Tablet PO (21:10)
[2020-11-14] MEDS: Acetaminophen 325 MG Tablet 650 MG PO (21:10)
[2020-11-14] MEDS: traZODone 100 MG Tablet 150 MG PO (21:10)
[2020-11-14 21:26] LABS: Bedside Glucose 171 mg/dL (70-110)
[2020-11-15] VITALS (18 sets, daily range): BP systolic 111–142; BP diastolic 74–87; PULSE 67–89; RESP 16–20; TEMP 35.9–36.8; O2SAT 94–99
[2020-11-15] MEDS: Ipratropium/Albuterol Sulfate 3 ML AMPUL.NEB INHALATION ×2 (06:10→18:57)
[2020-11-15 06:12] LABS: Absolute Lymphocyte Count 2.19 X10^3/uL (0.83-4.51); Absolute Neutrophil Count 9.4 X10^3/uL (2.0-7.7); Basophil# 0.03 X10^3/uL; Basophil% 0.2 % (0-1); Eosinophils% 3.1 % (0-5); Hematocrit 42.6 % (40-54); Hemoglobin 12.2 g/dL (13.0-16.5); Lymphocyte # 2.19 X10^3/ul (4.0); Lymphocyte % 16.9 % (19-41); Mean Corp Hgb Conc 28.6 g/dL (32-36); Mean Corpuscular Hgb 27.5 pg (27.0-32.0); Mean Corpuscular Volume 95.9 fL (80-94); Mean Platelet Vol. 10.1 fl (6.2-12.0); Monocyte# 0.79 X10^3/uL; Monocyte% 6.1 % (0-10); NRBC Flagged by Analyzer 0 % (0-5); Neutrophil # 9.37 X10^3/uL (2.7-7.7); Neutrophil % 72.5 % (47-70); Platelet Count 250 K/mm3 (150-450); RBC Distribution Width CV 15.3 % (11.6-14.6); RBC Distribution Width SD 54.2 fl (35.1-43.9); Red Blood Count 4.44 M/mm3 (4.6-6.2); White Blood Count 12.9 K/mm3 (4.4-11.0)
[2020-11-15] MEDS: traMADol 50 MG Tablet PO ×3 (06:13→23:34)
[2020-11-15] MEDS: Pregabalin 50 MG Capsule 100 MG PO ×3 (06:13→23:30)
[2020-11-15 06:47] LABS: Anion Gap 4 (5-15); BUN 19 mg/dL (7-18); BUN/Creat Ratio 19.5 RATIO (10-20); Calcium,Total 8.8 mg/dL (8.5-10.1); Chloride 102 mmol/L (98-107); Creatinine, Serum 0.97 mg/dL (0.70-1.30); EST Glomerular Filtration Rate 85 mL/min (>60); Est Glom Filt Rate - Afr Amer 103 mL/min (>60); Estimated Creatinine Clearance 83.25 ml/min; Glucose 176 mg/dL (74-106); Potassium 3.8 mmol/L (3.5-5.1); Sodium Level 138 mmol/L (136-145)
[2020-11-15] MEDS: Insulin Lispro 100 UNIT/ML INSULN.PEN SC ×3 (08:55→23:26)
[2020-11-15] MEDS: Pantoprazole Sodium 40 MG Tablet PO (08:58)
[2020-11-15] MEDS: Gabapentin 300 MG Capsule 900 MG PO ×3 (08:58→17:18)
[2020-11-15] MEDS: 0.9% Saline Lock 10 ML Syringe IV (08:59)
[2020-11-15] MEDS: Clopidogrel Bisulfate 75 MG Tablet PO (08:59)
[2020-11-15] MEDS: Furosemide 40 MG/4 ML Vial IV ×2 (08:59→17:20)
[2020-11-15] MEDS: Loratadine 10 MG Tablet PO (09:00)
[2020-11-15] MEDS: DULoxetine Hcl 60 MG Capsule PO (09:00)
[2020-11-15] MEDS: Ferrous Sulfate 325 MG Tablet PO (09:00)
[2020-11-15] MEDS: Enoxaparin 40 MG/0.4 ML Syringe SC (09:00)
[2020-11-15] MEDS: Aspirin E.C. 81 MG Tablet PO (09:00)
[2020-11-15] MEDS: Metoprolol(XL)Succ 50 MG Tablet PO (09:01)
[2020-11-15] MEDS: Sotalol Hydrochloride 80 MG Tablet 120 MG PO ×2 (09:01→23:24)
[2020-11-15 10:28] LABS: Hemoglobin A1c 7.2 % (3.8-5.6)
[2020-11-15 12:00] LABS: Bedside Glucose 215 mg/dL (70-110)
--- NOTE | 2020-11-15 12:59 | PN_ITS ---
<LcAlina BLOW UP OPERATOR - Last Filed: 11/15/20 13:11> Patient Problems: Active and Suspected Problems (Last Reviewed 11/14/20 @ 05:[address] Jeferson liriano MD) Lower extremity edema (Acute) Chest pain (Acute) Subjective: Patient seen and examined. Reports improvement in breathing and lower extremity swelling. Denies chest pain. Reports intermittent difficulty urinating. Denies dysuria or other urinary symptoms. Patient states he has had intermittent difficulty urinating prior to admission as well. - Physical Exam Vitals/I&O's: Vital Signs Temp Pulse Resp BP Pulse Ox 98.3 F 73 20 H 142/87 H 95 11/15/20 08:45 11/15/20 11:00 11/15/20 09:24 11/15/20 08:45 11/15/20 09:24 Oxygen Flow Rate (L/min) 3 Oxygen Delivery Method Nasal Cannula Weight: 214 lb 8.156 oz Body Mass Index (BMI) 33.4 Finger Stick Blood Glucose 148 Intake and Output for Last 24 Hours 11/13/20 11/14/20 11/15/20 23:59 23:59 23:59 Intake Total 1040 / 1040 550 / 550 Output Total 2600 / 2600 1900 / 1900 Balance -1560 / -1560 -1350 / -1350 General: Alert, Oriented x3, Cooperative HEENT: Atraumatic, PERRLA, EOMI, Normocephalic Neck: Supple, No JVD, Negative Carotid Bruits Lungs: Clear to auscultation, Diminished Cardiovascular: - - Atrial fibrillation, rate controlled Abdomen: Bowel Sounds Present, Soft, Non Tender, Non-Distended Extremities: No clubbing, No cyanosis, Edema - Bilateral lower extremities, Carroll wraps in place Skin: No rashes, No breakdown Musculoskeletal: No Tenderness to Palpation of Joints or Extremities Neurological: Cranial nerves II-XII grossly intact, Neuro grossly intact Psych/Mental Status: Normal Affect, Appropriate Microbiology Past 72 Hours 11/14/20 02:40 Mucosa - Nasopharyngeal SARS-CoV-2 Antigen (Rapid) - Final Laboratory Results 11/14/20 08:02: TSH 0.53 11/14/20 16:25: POC Glucose 238 H 11/14/20 21:08: POC Glucose 171 H 11/15/20 05:50: Sodium 138, Potassium 3.8, Chloride 102, Carbon Dioxide 32.0, Anion Gap 4 L, BUN 19 H, Creatinine 0.97, Estim Creat Clear Calc 83.25, Est GFR (MDRD) Af Amer 103, Est GFR (MDRD) Non-Af 85, BUN/Creatinine Ratio 19.5, Glucose 176 H, Calcium 8.8 11/15/20 05:50: WBC 12.9 H, RBC 4.44 L, Hgb 12.2 L, Hct 42.6, MCV 95.9 H, MCH 27.5, MCHC 28.6 L, RDW Std Deviation 54.2 H, RDW Coeff of Arleen 15.3 H, Plt Count 250, MPV 10.1, Immature Gran % (Auto) 1.200 H, Neut % (Auto) 72.5 H, Lymph % (Auto) 16.9 L, Cowley % (Auto) 6.1, Eos % (Auto) 3.1, Baso % (Auto) 0.2, Absolute Neuts (auto) 9.4 H, Absolute Lymphs (auto) 2.19, Nucleated RBC % 0 11/15/20 05:50: Hemoglobin A1c 7.2 H 11/15/20 11:54: POC Glucose 215 H Current Medications Acetaminophen (Acetaminophen 325 Mg Tablet) 650 mg PO Q6H PRN PRN PRN Reason: Pain Score 1-10/Temp > 100.7 F Last Admin: 11/14/20 21:10 Dose: 650 mg Documented by: Albuterol Sulfate (Albuterol 2.5 Mg/3 Ml Vial.Neb.) 2.5 mg INHALATION Q2H PRN P RN PRN Reason: SOB/Wheezing Albuterol/Ipratropium (Ipratropium/Albuterol Sulfate 3 Ml Ampul.Neb) 3 ml INHALATION Q6HWA.RT [facility] Last Admin: 11/15/20 06:10 Dose: 3 ml Documented by: Aspirin (Aspirin E.C. 81 Mg Tablet) 81 mg PO DAILY [facility] Last Admin: 11/15/20 09:00 Dose: 81 mg Documented by: Atorvastatin Calcium (Atorvastatin Calcium 80 Mg Tablet) 80 mg PO QHS [facility] Last Admin: 11/14/20 21:09 Dose: 80 mg Documented by: Clopidogrel Bisulfate (Clopidogrel Bisulfate 75 Mg Tablet) 75 mg PO DAILY [facility] Last Admin: 11/15/20 08:59 Dose: 75 mg Documented by: Dextrose (Dextrose 50%-Water 25 Gm/50 Ml Disp.Syrin) 0 gm IV X1 PRN; Protocol PRN Reason: Hypoglycemia Duloxetine HCl (Duloxetine Hcl 60 Mg Capsule) 60 mg PO DAILY [facility] Last Admin: 11/15/20 09:00 Dose: 60 mg Documented by: Enoxaparin Sodium (Enoxaparin 40 Mg/0.4 Ml Syringe) 40 mg SC DAILY [facility] Last Admin: 11/15/20 09:00 Dose: 40 mg Documented by: Ferrous Sulfate (Ferrous Sulfate 325 Mg Tablet) 325 mg PO LUNCH [facility] Last Admin: 11/15/20 09:00 Dose: 325 mg Documented by: Furosemide (Furosemide 40 Mg/4 Ml Vial) 40 mg IV BID@1000,1800 [facility] Last Admin: 11/15/20 08:59 Dose: 40 mg Documented by: Gabapentin (Gabapentin 300 Mg Capsule) 900 mg PO TIDCM [facility] Last Admin: 11/15/20 11:57 Dose: 900 mg Documented by: Glucagon (Glucagon 1 Mg/Ml Syringe) 1 mg IM .X1 PRN PRN Reason: Hypoglycemia Guaifenesin (Guaifenesin 10 Ml Udc (200mg/10ml)) 10 ml PO Q6H PRN PRN PRN Reason: COUGH Hydralazine HCl (Hydralazine 20 Mg/Ml Vial) 5 mg IV Q4H PRN PRN PRN Reason: SBP > 160 OR DBP > 120 Sodium Chloride () 250 mls @ 15 mls/hr IV .[id number] PRN PRN Reason: Saline Flush Insulin Glargine (Insulin Glargine 100 Units/Ml Pen) 18 units SC BREAKFAST [facility] Last Admin: 11/15/20 08:56 Dose: 18 units Documented by: Insulin Human Lispro (Insulin Lispro 100 Unit/Ml Insuln.Pen) 0 unit SC ACHS [facility]; Protocol Last Admin: 11/15/20 11:57 Dose: 6 units Documented by: Isosorbide Mononitrate (Isosorbide Mononitrate 120 Mg Tablet) 120 mg PO DAILY [facility] Last Admin: 11/15/20 09:00 Dose: 120 mg Documented by: Loratadine (Loratadine 10 Mg Tablet) 10 mg PO DAILY [facility] Last Admin: 11/15/20 09:00 Dose: 10 mg Documented by: Melatonin (Melatonin 3 Mg Tablet) 3 mg PO QHS PRN PRN PRN Reason: INSOMNIA Metoprolol Succinate (Metoprolol(Xl)Succ 50 Mg Tablet) 50 mg PO DAILY [facility] Last Admin: 11/15/20 09:01 Dose: 50 mg Documented by: Nitroglycerin (Nitroglycerin (Inpatient Use) 0.4 Mg Tab.Subl) 0.4 mg SUBLINGUAL Q5M PRN PRN Reason: CARDIAC/CHEST PAIN Ondansetron HCl (Ondansetron 4 Mg/2 Ml Vial) 4 mg IV Q8H PRN PRN PRN Reason: NAUSEA/VOMITING Pantoprazole Sodium (Pantoprazole Sodium 40 Mg Tablet) 40 mg PO DAILY [facility] Last Admin: 11/15/20 08:58 Dose: 40 mg Documented by: Pramipexole Dihydrochloride (Pramipexole Di-Hcl 0.125 Mg Tablet) 0.125 mg PO QHS [facility] Last Admin: 11/14/20 21:10 Dose: 0.125 mg Documented by: Pregabalin (Pregabalin 50 Mg Capsule) 100 mg PO TID [facility] Last Admin: 11/15/20 06:13 Dose: 100 mg Documented by: Senna/Docusate Sodium (Senna/Docusate Sodium 1 Tablet) 2 tablet PO BID PRN PRN PRN Reason: Constipation Sodium Chloride (0.9% Saline Lock 10 Ml Syringe) 10 - 40 ml IV UD PRN PRN Reason: SALINE FLUSH Last Admin: 11/15/20 08:59 Dose: 10 ml Documented by: Sotalol HCl (Sotalol Hydrochloride 80 Mg Tablet) 120 mg PO BID [facility] Last Admin: 11/15/20 09:01 Dose: 120 mg Documented by: Tramadol HCl (Tramadol 50 Mg Tablet) 50 mg PO Q6H PRN PRN PRN Reason: Pain Score 4-10 Last Admin: 11/15/20 06:13 Dose: 50 mg Documented by: Trazodone HCl (Trazodone 100 Mg Tablet) 150 mg PO QHS [facility] Last Admin: 11/14/20 21:10 Dose: 150 mg Documented by: Medical Necessity - Tobacco Use Smoking Status: Current every day smoker Assessment/Plan All Active Problems (Last Reviewed 11/14/20 @ 05:[address] Jeferson Mcfarlane MD) Lower extremity edema (Acute) Chest pain (Acute) 1. Acute on chronic heart failure with preserved ejection fraction-cardiology following. Echocardiogram demonstrates an EF of 70%, pulmonary artery systolic pressure 60 to 65 mmHg. Afebrile. Carroll wraps bilateral lower extremities. IV Lasix. Strict I&O. Daily weight. Breathing improved today with diuresis. On home baseline O2 requirements. 2. Indeterminate troponin-cardiology following. Suspect demand ischemia as a result of #1. Enzymes did not trend. Normal stress test in April. 3. CAD with history of CABG and stents-continue aspirin, statin, Plavix, isosorbide, metoprolol. Lisinopril on hold. 4. A. fib with RVR, atrial flutter-rate now controlled. Continue metoprolol, sotalol. 5. Type 2 diabetes [id number] with sliding scale insulin. 6. KENNETH-continue home CPAP regimen. 7. COPD with chronic approximate respiratory failure-continue supplemental oxygen to maintain O2 at or above 90%. Stable on home O2 requirements. 8. Increased creatinine-no acute kidney injury, does not appear to have underlying CKD. Creatinine normalized with diuresis. 9. Depression/insomnia-continue trazodone, Cymbalta. DVT prophylaxis- Lovenox sc This patient was seen by DIANA Lujan under the supervision of Dr. Cancino. <Geno Cancino - Last Filed: 11/15/20 15:49> - Physical Exam Vitals/I&O's: Vital Signs Temp Pulse Resp BP Pulse Ox 98.3 F 88 20 H 142/87 H 99 11/15/20 08:45 11/15/20 14:00 11/15/20 14:00 11/15/20 08:45 11/15/20 14:00 Oxygen Flow Rate (L/min) 3 Oxygen Delivery Method Nasal Cannula Weight: 214 lb 8.156 oz Body Mass Index (BMI) 33.4 Finger Stick Blood Glucose 148 Intake and Output for Last 24 Hours 11/13/20 11/14/20 11/15/20 23:59 23:59 23:59 Intake Total 1040 / 1040 550 / 550 Output Total 2600 / 2600 1900 / 1900 Balance -1560 / -1560 -1350 / -1350 Microbiology Past 72 Hours 11/14/20 02:40 Mucosa - Nasopharyngeal SARS-CoV-2 Antigen (Rapid) - Final Laboratory Results 11/14/20 16:25: POC Glucose 238 H 11/14/20 21:08: POC Glucose 171 H 11/15/20 05:50: Sodium 138, Potassium 3.8, Chloride 102, Carbon Dioxide 32.0, Anion Gap 4 L, BUN 19 H, Creatinine 0.97, Estim Creat Clear Calc 83.25, Est GFR (MDRD) Af Amer 103, Est GFR (MDRD) Non-Af 85, BUN/Creatinine Ratio 19.5, Glucose 176 H, Calcium 8.8 11/15/20 05:50: WBC 12.9 H, RBC 4.44 L, Hgb 12.2 L, Hct 42.6, MCV 95.9 H, MCH 27.5, MCHC 28.6 L, RDW Std Deviation 54.2 H, RDW Coeff of Arleen 15.3 H, Plt Count 250, MPV 10.1, Immature Gran % (Auto) 1.200 H, Neut % (Auto) 72.5 H, Lymph % (Auto) 16.9 L, Cowley % (Auto) 6.1, Eos % (Auto) 3.1, Baso % (Auto) 0.2, Absolute Neuts (auto) 9.4 H, Absolute Lymphs (auto) 2.19, Nucleated RBC % 0 11/15/20 05:50: Hemoglobin A1c 7.2 H 11/15/20 11:54: POC Glucose 215 H Current Medications Acetaminophen (Acetaminophen 325 Mg Tablet) 650 mg PO Q6H PRN PRN PRN Reason: Pain Score 1-10/Temp > 100.7 F Last Admin: 11/14/20 21:10 Dose: 650 mg Documented by: Albuterol Sulfate (Albuterol 2.5 Mg/3 Ml Vial.Neb.) 2.5 mg INHALATION Q2H PRN PRN PRN Reason: SOB/Wheezing Albuterol/Ipratropium (Ipratropium/Albuterol Sulfate 3 Ml Ampul.Neb) 3 ml INHALATION Q6HWA.RT [facility] Last Admin: 11/15/20 06:10 Dose: 3 ml Documented by: Aspirin (Aspirin E.C. 81 Mg Tablet) 81 mg PO DAILY [facility] Last Admin: 11/15/20 09:00 Dose: 81 mg Documented by: Atorvastatin Calcium (Atorvastatin Calcium 80 Mg Tablet) 80 mg PO QHS [facility] Last Admin: 11/14/20 21:09 Dose: 80 mg Documented by: Clopidogrel Bisulfate (Clopidogrel Bisulfate 75 Mg Tablet) 75 mg PO DAILY [facility] Last Admin: 11/15/20 08:59 Dose: 75 mg Documented by: Dextrose (Dextrose 50%-Water 25 Gm/50 Ml Disp.Syrin) 0 gm IV X1 PRN; Protocol PRN Reason: Hypoglycemia Duloxetine HCl (Duloxetine Hcl 60 Mg Capsule) 60 mg PO DAILY [facility] Last Admin: 11/15/20 09:00 Dose: 60 mg Documented by: Enoxaparin Sodium (Enoxaparin 40 Mg/0.4 Ml Syringe) 40 mg SC DAILY [facility] Last Admin: 11/15/20 09:00 Dose: 40 mg Documented by: Ferrous Sulfate (Ferrous Sulfate 325 Mg Tablet) 325 mg PO LUNCH [facility] Last Admin: 11/15/20 09:00 Dose: 325 mg Documented by: Furosemide (Furosemide 40 Mg/4 Ml Vial) 40 mg IV BID@1000,1800 [facility] Last Admin: 11/15/20 08:59 Dose: 40 mg Documented by: Gabapentin (Gabapentin 300 Mg Capsule) 900 mg PO TIDCM [facility] Last Admin: 11/15/20 11:57 Dose: 900 mg Documented by: Glucagon (Glucagon 1 Mg/Ml Syringe) 1 mg IM .X1 PRN PRN Reason: Hypoglycemia Guaifenesin (Guaifenesin 10 Ml Udc (200mg/10ml)) 10 ml PO Q6H PRN PRN PRN Reason: COUGH Hydralazine HCl (Hydralazine 20 Mg/Ml Vial) 5 mg IV Q4H PRN PRN PRN Reason: SBP > 160 OR DBP > 120 Sodium Chloride () 250 mls @ 15 mls/hr IV .[id number] PRN PRN Reason: Saline Flush Insulin Glargine (Insulin Glargine 100 Units/Ml Pen) 18 units SC BREAKFAST [facility] Last Admin: 11/15/20 08:56 Dose: 18 units Documented by: Insulin Human Lispro (Insulin Lispro 100 Unit/Ml Insuln.Pen) 0 unit SC ACHS [facility]; Protocol Last Admin: 11/15/20 11:57 Dose: 6 units Documented by: Isosorbide Mononitrate (Isosorbide Mononitrate 120 Mg Tablet) 120 mg PO DAILY [facility] Last Admin: 11/15/20 09:00 Dose: 120 mg Documented by: Loratadine (Loratadine 10 Mg Tablet) 10 mg PO DAILY [facility] Last Admin: 11/15/20 09:00 Dose: 10 mg Documented by: Melatonin (Melatonin 3 Mg Tablet) 3 mg PO QHS PRN PRN PRN Reason: INSOMNIA Metoprolol Succinate (Metoprolol(Xl)Succ 50 Mg Tablet) 50 mg PO DAILY [facility] Last Admin: 11/15/20 09:01 Dose: 50 mg Documented by: Nitroglycerin (Nitroglycerin (Inpatient Use) 0.4 Mg Tab.Subl) 0.4 mg SUBLINGUAL Q5M PRN PRN Reason: CARDIAC/CHEST PAIN Ondansetron HCl (Ondansetron 4 Mg/2 Ml Vial) 4 mg IV Q8H PRN PRN PRN Reason: NAUSEA/VOMITING Pantoprazole Sodium (Pantoprazole Sodium 40 Mg Tablet) 40 mg PO DAILY [facility] Last Admin: 11/15/20 08:58 Dose: 40 mg Documented by: Pramipexole Dihydrochloride (Pramipexole Di-Hcl 0.125 Mg Tablet) 0.125 mg PO QHS [facility] Last Admin: 11/14/20 21:10 Dose: 0.125 mg Documented by: Pregabalin (Pregabalin 50 Mg Capsule) 100 mg PO TID [facility] Last Admin: 11/15/20 15:04 Dose: 100 mg Documented by: Senna/Docusate Sodium (Senna/Docusate Sodium 1 Tablet) 2 tablet PO BID PRN PRN PRN Reason: Constipation Sodium Chloride (0.9% Saline Lock 10 Ml Syringe) 10 - 40 ml IV UD PRN PRN Reason: SALINE FLUSH Last Admin: 11/15/20 08:59 Dose: 10 ml Documented by: Sotalol HCl (Sotalol Hydrochloride 80 Mg Tablet) 120 mg PO BID [facility] Last Admin: 11/15/20 09:01 Dose: 120 mg Documented by: Tamsulosin HCl (Tamsulosin Hcl 0.4 Mg Capsule) 0.4 mg PO DAILY@1730 [facility] Tramadol HCl (Tramadol 50 Mg Tablet) 50 mg PO Q6H PRN PRN PRN Reason: Pain Score 4-10 Last Admin: 11/15/20 06:13 Dose: 50 mg Documented by: Trazodone HCl (Trazodone 100 Mg Tablet) 150 mg PO QHS [facility] Last Admin: 11/14/20 21:10 Dose: 150 mg Documented by: Assessment/Plan Patient seen by Alina SALGADOC under my supervision Patient seen and examined. He complains of more shortness of breath and his oxygen was increased to 6L. Review of symptoms otherwise negative. On IV Lasix. Cardiology on board. O/E: Vital Signs Temp Pulse Resp BP Pulse Ox 97.8 F 89 20 H 111/77 98 11/15/20 14:45 11/15/20 14:45 11/15/20 14:45 11/15/20 14:45 11/15/20 14:45 General: Alert, Oriented x3, Cooperative HEENT: Atraumatic, PERRLA, EOMI, Normocephalic Neck: Supple, No JVD, Negative Carotid Bruits Lungs: Clear to auscultation, Normal air movement; on 6L of oxygen, subsequently decreased to 3L of oxygen. Cardiovascular: No murmurs, Irregular Rate Abdomen: Bowel Sounds Present, Soft, Non Tender Extremities: Capillary Refill Less than 3 Seconds, both LEs wrapped in CARROLL bandage Skin: No rashes, No breakdown Musculoskeletal: No Tenderness to Palpation of Joints or Extremities Neurological: Cranial nerves II-XII grossly intact Psych/Mental Status: Normal Affect, Appropriate, Alert and oriented to time, place, person, mood and affect Plan is continue diuresing with IV Lasix. 2D echo showed indeterminate diastolic function with dilated inferior vena cava and pulmonary artery systolic pressure of 60 to 65 mmHg and estimated EF of 70%. Continue titrating oxygen to maintain saturation above 90%. He wears 4 L of oxygen at night 3 L during the day. Continue breathing treatments with bronchodilators. On Sotalol and metoprolol for A. fib. Not on anticoagulation on account of history of GI bleed. Rest as per Alina PARISIC's note, which I have reviewed and endorsed. Inpatient E&M: [id number] Subs Hosp L2
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
[2020-11-15] MEDS: Tamsulosin HCl 0.4 MG Capsule PO (17:20)
[2020-11-15 21:46] LABS: Bedside Glucose 199 mg/dL (70-110)
[2020-11-15 21:46] LABS: Bedside Glucose 115 mg/dL (70-110)
[2020-11-15] MEDS: traZODone 100 MG Tablet 150 MG PO (23:25)
[2020-11-15] MEDS: Pramipexole Di-HCl 0.125 MG Tablet PO (23:27)
[2020-11-15] MEDS: Atorvastatin Calcium 80 MG Tablet PO (23:28)
[2020-11-16] VITALS (12 sets, daily range): BP systolic 101–148; BP diastolic 43–74; PULSE 60–78; RESP 12–20; TEMP 36.4–36.7; O2SAT 85–98
[2020-11-16 06:29] LABS: Hematocrit 43.1 % (40-54); Hemoglobin 12.5 g/dL (13.0-16.5); Mean Corpuscular Hgb 27.7 pg (27.0-32.0); Mean Corpuscular Volume 95.6 fL (80-94); Platelet Count 266 K/mm3 (150-450); RBC Distribution Width CV 15.5 % (11.6-14.6); RBC Distribution Width SD 54.2 fl (35.1-43.9); Red Blood Count 4.51 M/mm3 (4.6-6.2); White Blood Count 11.2 K/mm3 (4.4-11.0)
[2020-11-16 06:55] LABS: Anion Gap 3 (5-15); BUN 21 mg/dL (7-18); BUN/Creat Ratio 21.7 RATIO (10-20); Calcium,Total 8.8 mg/dL (8.5-10.1); Chloride 100 mmol/L (98-107); Creatinine, Serum 0.97 mg/dL (0.70-1.30); EST Glomerular Filtration Rate 86 mL/min (>60); Est Glom Filt Rate - Afr Amer 104 mL/min (>60); Estimated Creatinine Clearance 83.25 ml/min; Glucose 110 mg/dL (74-106); Sodium Level 137 mmol/L (136-145)
[2020-11-16 07:10] LABS: Bedside Glucose 122 mg/dL (70-110)
[2020-11-16] MEDS: Ipratropium/Albuterol Sulfate 3 ML AMPUL.NEB INHALATION ×2 (07:18→13:00)
[2020-11-16] MEDS: Pregabalin 50 MG Capsule 100 MG PO ×2 (07:31→13:22)
[2020-11-16] MEDS: traMADol 50 MG Tablet PO ×2 (07:33→13:22)
[2020-11-16] MEDS: DULoxetine Hcl 60 MG Capsule PO (09:33)
[2020-11-16] MEDS: Aspirin E.C. 81 MG Tablet PO (09:33)
[2020-11-16] MEDS: Sotalol Hydrochloride 80 MG Tablet 120 MG PO (09:33)
[2020-11-16] MEDS: Loratadine 10 MG Tablet PO (09:33)
[2020-11-16] MEDS: Metoprolol(XL)Succ 50 MG Tablet PO (09:34)
[2020-11-16] MEDS: Pantoprazole Sodium 40 MG Tablet PO (09:34)
[2020-11-16] MEDS: Gabapentin 300 MG Capsule 900 MG PO ×2 (09:34→11:58)
[2020-11-16] MEDS: Enoxaparin 40 MG/0.4 ML Syringe SC (09:35)
[2020-11-16] MEDS: Furosemide 40 MG/4 ML Vial IV (09:35)
[2020-11-16] MEDS: Clopidogrel Bisulfate 75 MG Tablet PO (09:56)
[2020-11-16] MEDS: Insulin Lispro 100 UNIT/ML INSULN.PEN SC (11:57)
[2020-11-16] MEDS: Ferrous Sulfate 325 MG Tablet PO (11:58)
--- NOTE | 2020-11-16 12:01 | DCINST_ITS ---
- Discharge Diagnoses Current Active Problems: Current Active and Chronic Problems (Last Reviewed 11/14/20 @ 05:[address] Jeferson Mcfarlane MD) Lower extremity edema (Acute) Chest pain (Acute) KENNETH and COPD overlap syndrome (Chronic) Smoking greater than 40 pack years (Chronic) Chronic obstructive pulmonary disease (Chronic) PAD (peripheral artery disease) (Chronic) CAD (coronary artery disease) (Chronic) Hx of CABG (Chronic) CABG X 3 vessels, CARTER to LAD, SVG to OM1, SVG to OM3 11/03 History of open reduction and internal fixation (ORIF) procedure (Chronic) Left lower extremity Typical atrial flutter (Chronic) Other specified cardiac device in situ (Chronic) Presence of coronary angioplasty implant and graft (Chronic) February 2005 IVUS of LAD, May 2005 PTCA & 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 [place] Paroxysmal atrial fibrillation (Chronic) Diabetes mellitus (Chronic) Hypertension (Chronic) Hyperlipidemia (Chronic) Nicotine abuse (Chronic) You will use the following diet at home:: Cardiac Discharge Activity: Return to Normal Activity Call your doctor if you observe: Shortness of breath, Dizziness, Fainting spells, Chest pain Allergies/Adverse Reactions: Allergies seasonal Allergy (Uncoded 11/14/20 02:18) SOB Medications to take at Discharge Gabapentin [Neurontin] 1,200 mg PO TIDCM 12/07/15 metFORMIN HCl [Glucophage] 1,000 mg PO BIDCM 12/07/15 duloxetine 60 mg capsule,delayed release 60 mg PO DAILY 01/13/18 ferrous sulfate 325 mg (65 mg iron) tablet 325 mg PO DAILY tab 11/26/18 Albuterol IH (ProAir) [Proair Hfa] 2 puff INHALATION Q6H PRN PRN 11/09/19 Albuterol Sulfate 1 dose IH Q4H PRN PRN 11/09/19 Nitroglycerin 0.4 mg SL PRN PRN 11/09/19 pantoprazole 40 mg tablet,delayed release 40 mg PO DAILY 11/11/19 pregabalin 100 mg capsule 100 mg PO TID cap 11/11/19 ropinirole 0.25 mg tablet 0.5 mg PO QHS 11/11/19 tiotropium 2.5 mcg-olodaterol 2.5 mcg/actuation mist for inhalation 2 puff INHALATION DAILY 11/11/19 trazodone 150 mg tablet 150 mg PO QHS 11/11/19 Loratadine 10 mg PO DAILY 04/30/20 aspirin 81 mg tablet,delayed release 81 mg PO DAILY 05/24/20 atorvastatin 80 mg tablet 80 mg PO QHS #90 tab 05/24/20 clopidogrel 75 mg tablet 75 mg PO DAILY #90 tab 05/24/20 isosorbide mononitrate 120 mg tablet,extended release 24 hr 120 mg PO DAILY #90 tab 05/24/20 lisinopril 10 mg tablet 10 mg PO DAILY #90 tab 05/24/20 metoprolol succinate 50 mg tablet,extended release 24 hr 50 mg PO DAILY #90 tab 05/24/20 sotalol 120 mg tablet 120 mg PO BID #180 tab 05/24/20 Furosemide 40 mg PO BID #60 tab 11/16/20 Insulin Glargine [Lantus SoloStar Pen] 20 units SC BREAKFAST #1 box 11/16/20 Pen Needle, Diabetic [Pen [place]] 1 ea [facility] DAILY #1 box 11/16/20 Tamsulosin HCl [Flomax] 0.4 mg PO DAILY@1730 #30 cap 11/16/20 The following prescriptions were given: Tamsulosin HCl [Flomax] 0.4 mg PO DAILY@1730 #30 cap Transmission Status: Pending to [facility] Furosemide 40 mg PO BID #60 tab Transmission Status: Pending to [facility] Insulin Glargine [Lantus SoloStar Pen] 20 units SC BREAKFAST #1 box Transmission [facility]: [facility] Pen Needle, Diabetic [Pen [place]] 1 ea [facility] DAILY #1 box Transmission Status: Pending to [facility] Primary Care Physician: Blaze Louis MD [Primary Care Provider] - Please follow up with your Primary Care Physician in: 1 Week Test Results: Test results from this visit will be discussed in further detail at your follow- up appointment, if applicable. Please Follow Up With: Freda Mata, PA When: 2 Weeks Proposed Discharge Date: 11/16/20
--- NOTE | 2020-11-16 12:04 | DS.PCM_ITS ---
<Alina Platt DAIRY ASSOCIATE - Last Filed: 11/16/20 14:27> Discharge Date and Diagnosis - Problem List Patient Problems: Active and Suspected Problems (Last Reviewed 11/14/20 @ 05:[address] Jeferson Mcfarlane MD) Lower extremity edema (Acute) Chest pain (Acute) Date of Admission: 11/14/20 Date of Discharge: 11/16/20 - Primary Discharge Diagnosis Acute Problems: Active Problems (Last Reviewed 11/14/20 @ 05:[address] Jeferson Mcfarlane MD) 1. Acute on chronic heart failure with preserved ejection fraction 2. Indeterminate troponin 3. CAD with history of CABG and stents 4. A. fib with RVR, atrial flutter 5. Type 2 diabetes mellitus 6. KENNETH 7. COPD with chronic hypoxic respiratory failure 8. Increased creatinine-no acute kidney injury, resolved 9. Depression/insomnia 10. Urinary hesitancy - Secondary Discharge Diagnosis Chronic Problems: Chronic Problems (Last Reviewed 11/14/20 @ 05:[address] Jeferson Mcfarlane MD) KENNETH and COPD overlap syndrome (Chronic) Smoking greater than 40 pack years (Chronic) Chronic obstructive pulmonary disease (Chronic) PAD (peripheral artery disease) (Chronic) CAD (coronary artery disease) (Chronic) Hx of CABG (Chronic) CABG X 3 vessels, CARTER to LAD, SVG to OM1, SVG to OM3 11/03 History of open reduction and internal fixation (ORIF) procedure (Chronic) Left lower extremity Typical atrial flutter (Chronic) Other specified cardiac device in situ (Chronic) Presence of coronary angioplasty implant and graft (Chronic) February 2005 IVUS of LAD, May 2005 PTCA & ALBAN X 3 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 [place] Paroxysmal atrial fibrillation (Chronic) Diabetes mellitus (Chronic) Hypertension (Chronic) Hyperlipidemia (Chronic) Nicotine abuse (Chronic) Hospital Course and Treatment Imaging Results: Diagnostic Data Chest X-Ray 11/14/20 02:29 IMPRESSION: Possible early right lower lobe infiltrate. Clinical correlation recommended. Electronically Signed: Leonor Gill MD at 2:59 EST , Service support , Dr. Denson-Cardiology Operations: None Procedures: 2-D Echocardiogram Summary of Care Provided: The patient is a 55 year old M admitted 11/14/2020 due to lower extremity swelling, increased shortness of breath. 1. Acute on chronic heart failure with preserved ejection fraction-cardiology consulted during admission. Echocardiogram demonstrates an EF of 70%, pulmonary artery systolic pressure 60 to 65 mmHg. Afebrile. IV Lasix during admission, increase home Lasix regimen to 40 mg twice daily at discharge. Follow-up with cardiology in 2 weeks. 2. Indeterminate troponin-cardiology consulted as noted above. Suspect demand ischemia as a result of #1. Enzymes did not trend. Normal stress test in April. 3. CAD with history of CABG and stents-continue aspirin, statin, Plavix, isosorbide, metoprolol, lisinopril. 4. A. fib with RVR, atrial flutter-rate now controlled. Continue metoprolol, sotalol. 5. Type 2 diabetes mellitus-continue home metformin regimen. Initiated on Lantus 20 units daily. Follow-up with PCP for further adjustment. 6. KENNETH-continue home CPAP regimen. 7. COPD with chronic hypoxic respiratory failure-Patient is ambulatory in the home. He will continue supplemental oxygen at discharge to maintain O2 at or above 90%. 8. Increased creatinine-no acute kidney injury, does not appear to have underlying CKD. Creatinine normalized with diuresis. 9. Depression/insomnia-continue trazodone, Cymbalta. 10. Urinary hesitancy-initiated on Flomax with improvement in symptoms. Follow-up with PCP. General: Alert, Oriented x3, Cooperative HEENT: Atraumatic, PERRLA, EOMI, Normocephalic Neck: Supple, No JVD, Negative Carotid Bruits Lungs: Clear to auscultation, Diminished Cardiovascular: - - Atrial fibrillation, rate controlled Abdomen: Bowel Sounds Present, Soft, Non Tender, Non-Distended Extremities: No clubbing, No cyanosis, Edema - Bilateral lower extremities, Carroll wraps in place Skin: No rashes, No breakdown Musculoskeletal: No Tenderness to Palpation of Joints or Extremities Neurological: Cranial nerves II-XII grossly intact, Neuro grossly intact Psych/Mental Status: Normal Affect, Appropriate Patient seen and examined prior to discharge. Physical assessment as noted above. Patient is stable for discharge with follow up recommendations as noted above. This patient was seen by DIANA Lujan under the supervision of Dr. Cancino. Patient Problems: Active and Suspected Problems (Last Reviewed 11/14/20 @ 05:[address] Jeferson Mcfarlane MD) Lower extremity edema (Acute) Chest pain (Acute) - Physical Exam Vitals/I&O's: Vital Signs Temp Pulse Resp BP Pulse Ox 97.5 F L 72 20 H 101/66 92 11/16/20 09:27 11/16/20 09:34 11/16/20 09:27 11/16/20 09:27 11/16/20 09:27 Oxygen Flow Rate (L/min) 4 Oxygen Delivery Method Room Air Weight: 214 lb 8.156 oz Body Mass Index (BMI) 33.4 Finger Stick Blood Glucose 148 Intake and Output for Last 24 Hours 11/14/20 11/15/20 11/16/20 23:59 23:59 23:59 Intake Total 1040 / 1040 850 / 850 Output Total 2600 / 2600 2500 / 2500 400 / 400 Balance -1560 / -1560 -1650 / -1650 -400 / -400 Microbiology Past 72 Hours 11/14/20 02:40 Mucosa - Nasopharyngeal SARS-CoV-2 Antigen (Rapid) - Final Laboratory Results 11/15/20 17:15: POC Glucose 115 H 11/15/20 21:39: POC Glucose 199 H 11/16/20 06:13: WBC 11.2 H, RBC 4.51 L, Hgb 12.5 L, Hct 43.1, MCV 95.6 H, MCH 27.7, MCHC 29.0 L, RDW Std Deviation 54.2 H, RDW Coeff of Arleen 15.5 H, Plt Count 266, MPV 10.0 11/16/20 06:13: Sodium 137, Potassium 4.0, Chloride 100, Carbon Dioxide 34.0 H, Anion Gap 3 L, BUN 21 H, Creatinine 0.97, Estim Creat Clear Calc 83.25, Est GFR (MDRD) Af Amer 104, Est GFR (MDRD) Non-Af 86, BUN/Creatinine Ratio 21.7 H, Glucose 110 H, Calcium 8.8 11/16/20 07:02: POC Glucose 122 H Current Medications Acetaminophen (Acetaminophen 325 Mg Tablet) 650 mg PO Q6H PRN PRN PRN Reason: Pain Score 1-10/Temp > 100.7 F Last Admin: 11/14/20 21:10 Dose: 650 mg Documented by: Albuterol Sulfate (Albuterol 2.5 Mg/3 Ml Vial.Neb.) 2.5 mg INHALATION Q2H PRN PRN PRN Reason: SOB/Wheezing Albuterol/Ipratropium (Ipratropium/Albuterol Sulfate 3 Ml Ampul.Neb) 3 ml INHALATION Q6HWA.RT [facility] Last Admin: 11/16/20 07:18 Dose: 3 ml Documented by: Aspirin (Aspirin E.C. 81 Mg Tablet) 81 mg PO DAILY [facility] Last Admin: 11/16/20 09:33 Dose: 81 mg Documented by: Atorvastatin Calcium (Atorvastatin Calcium 80 Mg Tablet) 80 mg PO QHS [facility] Last Admin: 11/15/20 23:28 Dose: 80 mg Documented by: Clopidogrel Bisulfate (Clopidogrel Bisulfate 75 Mg Tablet) 75 mg PO DAILY [facility] Last Admin: 11/16/20 09:56 Dose: 75 mg Documented by: Dextrose (Dextrose 50%-Water 25 Gm/50 Ml Disp.Syrin) 0 gm IV X1 PRN; Protocol PRN Reason: Hypoglycemia Duloxetine HCl (Duloxetine Hcl 60 Mg Capsule) 60 mg PO DAILY [facility] Last Admin: 11/16/20 09:33 Dose: 60 mg Documented by: Enoxaparin Sodium (Enoxaparin 40 Mg/0.4 Ml Syringe) 40 mg SC DAILY [facility] Last Admin: 11/16/20 09:35 Dose: 40 mg Documented by: Ferrous Sulfate (Ferrous Sulfate 325 Mg Tablet) 325 mg PO LUNCH [facility] Last Admin: 11/16/20 11:58 Dose: 325 mg Documented by: Furosemide (Furosemide 40 Mg/4 Ml Vial) 40 mg IV BID@1000,1800 [facility] Last Admin: 11/16/20 09:35 Dose: 40 mg Documented by: Gabapentin (Gabapentin 300 Mg Capsule) 900 mg PO TIDCM [facility] Last Admin: 11/16/20 11:58 Dose: 900 mg Documented by: Glucagon (Glucagon 1 Mg/Ml Syringe) 1 mg IM .X1 PRN PRN Reason: Hypoglycemia Guaifenesin (Guaifenesin 10 Ml Udc (200mg/10ml)) 10 ml PO Q6H PRN PRN PRN Reason: COUGH Hydralazine HCl (Hydralazine 20 Mg/Ml Vial) 5 mg IV Q4H PRN PRN PRN Reason: SBP > 160 OR DBP > 120 Sodium Chloride () 250 mls @ 15 mls/hr IV .[id number] PRN PRN Reason: Saline Flush Insulin Glargine (Insulin Glargine 100 Units/Ml Pen) 18 units SC BREAKFAST [facility] Last Admin: 11/16/20 09:57 Dose: 18 units Documented by: Insulin Human Lispro (Insulin Lispro 100 Unit/Ml Insuln.Pen) 0 unit SC ACHS [facility]; Protocol Last Admin: 11/16/20 11:57 Dose: 3 units Documented by: Isosorbide Mononitrate (Isosorbide Mononitrate 120 Mg Tablet) 120 mg PO DAILY [facility] Last Admin: 11/16/20 09:33 Dose: 120 mg Documented by: Loratadine (Loratadine 10 Mg Tablet) 10 mg PO DAILY [facility] Last Admin: 11/16/20 09:33 Dose: 10 mg Documented by: Melatonin (Melatonin 3 Mg Tablet) 3 mg PO QHS PRN PRN PRN Reason: INSOMNIA Metoprolol Succinate (Metoprolol(Xl)Succ 50 Mg Tablet) 50 mg PO DAILY [facility] Last Admin: 11/16/20 09:34 Dose: 50 mg Documented by: Nitroglycerin (Nitroglycerin (Inpatient Use) 0.4 Mg Tab.Subl) 0.4 mg SUBLINGUAL Q5M PRN PRN Reason: CARDIAC/CHEST PAIN Ondansetron HCl (Ondansetron 4 Mg/2 Ml Vial) 4 mg IV Q8H PRN PRN PRN Reason: NAUSEA/VOMITING Pantoprazole Sodium (Pantoprazole Sodium 40 Mg Tablet) 40 mg PO DAILY [facility] Last Admin: 11/16/20 09:34 Dose: 40 mg Documented by: Pramipexole Dihydrochloride (Pramipexole Di-Hcl 0.125 Mg Tablet) 0.125 mg PO QHS [facility] Last Admin: 11/15/20 23:27 Dose: 0.125 mg Documented by: Pregabalin (Pregabalin 50 Mg Capsule) 100 mg PO TID [facility] Last Admin: 11/16/20 07:31 Dose: 100 mg Documented by: Senna/Docusate Sodium (Senna/Docusate Sodium 1 Tablet) 2 tablet PO BID PRN PRN PRN Reason: Constipation Sodium Chloride (0.9% Saline Lock 10 Ml Syringe) 10 - 40 ml IV UD PRN PRN Reason: SALINE FLUSH Last Admin: 11/15/20 08:59 Dose: 10 ml Documented by: Sotalol HCl (Sotalol Hydrochloride 80 Mg Tablet) 120 mg PO BID [facility] Last Admin: 11/16/20 09:33 Dose: 120 mg Documented by: Tamsulosin HCl (Tamsulosin Hcl 0.4 Mg Capsule) 0.4 mg PO DAILY@1730 [facility] Last Admin: 11/15/20 17:20 Dose: 0.4 mg Documented by: Tramadol HCl (Tramadol 50 Mg Tablet) 50 mg PO Q6H PRN PRN PRN Reason: Pain Score 4-10 Last Admin: 11/16/20 07:33 Dose: 50 mg Documented by: Trazodone HCl (Trazodone 100 Mg Tablet) 150 mg PO QHS [facility] Last Admin: 11/15/20 23:25 Dose: 150 mg Documented by: Discharge Diet: Low fat/ Low Cholesterol Discharge Activity: Return to Normal Activity Call your doctor if you observe: Shortness of breath, Dizziness, Fainting spells, Chest pain Home Medications: Medications to take at Discharge Gabapentin [Neurontin] 1,200 mg PO TIDCM 12/07/15 metFORMIN HCl [Glucophage] 1,000 mg PO BIDCM 12/07/15 duloxetine 60 mg capsule,delayed release 60 mg PO DAILY 01/13/18 ferrous sulfate 325 mg (65 mg iron) tablet 325 mg PO DAILY tab 11/26/18 Albuterol IH (ProAir) [Proair Hfa] 2 puff INHALATION Q6H PRN PRN 11/09/19 Albuterol Sulfate 1 dose IH Q4H PRN PRN 11/09/19 Nitroglycerin 0.4 mg SL PRN PRN 11/09/19 pantoprazole 40 mg tablet,delayed release 40 mg PO DAILY 11/11/19 pregabalin 100 mg capsule 100 mg PO TID cap 11/11/19 ropinirole 0.25 mg tablet 0.5 mg PO QHS 11/11/19 tiotropium 2.5 mcg-olodaterol 2.5 mcg/actuation mist for inhalation 2 puff INHALATION DAILY 11/11/19 trazodone 150 mg tablet 150 mg PO QHS 11/11/19 Loratadine 10 mg PO DAILY 04/30/20 aspirin 81 mg tablet,delayed release 81 mg PO DAILY 05/24/20 atorvastatin 80 mg tablet 80 mg PO QHS #90 tab 05/24/20 clopidogrel 75 mg tablet 75 mg PO DAILY #90 tab 05/24/20 isosorbide mononitrate 120 mg tablet,extended release 24 hr 120 mg PO DAILY #90 tab 05/24/20 lisinopril 10 mg tablet 10 mg PO DAILY #90 tab 05/24/20 metoprolol succinate 50 mg tablet,extended release 24 hr 50 mg PO DAILY #90 tab 05/24/20 sotalol 120 mg tablet 120 mg PO BID #180 tab 05/24/20 Furosemide 40 mg PO BID #60 tab 11/16/20 Insulin Glargine [Lantus SoloStar Pen] 20 units SC BREAKFAST #1 box 11/16/20 Pen Needle, Diabetic [Pen Correll] 1 ea MC DAILY #1 box 11/16/20 Tamsulosin HCl [Flomax] 0.4 mg PO DAILY@1730 #30 cap 11/16/20 Following Prescriptions Were Given to Patient: Tamsulosin HCl [Flomax] 0.4 mg PO DAILY@1730 #30 cap Transmission [facility]: [facility] Furosemide 40 mg PO BID #60 tab Transmission Status: [facility] Insulin Glargine [Lantus SoloStar Pen] 20 units SC BREAKFAST #1 box Transmission Status: [facility] Pen Needle, Diabetic [Pen Correll] 1 ea MC DAILY #1 box Transmission Status: [facility] Primary Care Physician: Blaze Louis MD [Primary Care Provider] - Please follow up with your Primary Care Physician in: 1 Week Please Follow Up With: Freda Mata PA When: 2 Weeks Disposition: Home Minutes spent on discharge:: 35 Patient Condition:: Stable Medical Necessity - Tobacco Use Smoking Status: Current every day smoker Meaningful Use Info Meaningful Use Diagnoses (Choose all that apply): CHF - CHF CARROLL/ARB ordered at discharge?: Yes Documented LVEF (%): 70 <Geno Cancinoa - Last Filed: 11/16/20 16:24> Discharge Date and Diagnosis - Primary Discharge Diagnosis Acute Problems: Active Problems (Last Reviewed 11/14/20 @ 05:[address] Jeferson Mcfarlane MD) Lower extremity edema (Acute) Chest pain (Acute) - Secondary Discharge Diagnosis Chronic Problems: Chronic Problems (Last Reviewed 11/14/20 @ 05:[address] Jeferson Mcfarlane MD) KENNETH and COPD overlap syndrome (Chronic) Smoking greater than 40 pack years (Chronic) Chronic obstructive pulmonary disease (Chronic) PAD (peripheral artery disease) (Chronic) CAD (coronary artery disease) (Chronic) Hx of CABG (Chronic) CABG X 3 vessels, CARTER to LAD, SVG to OM1, SVG to OM3 11/03 History of open reduction and internal fixation (ORIF) procedure (Chronic) Left lower extremity Typical atrial flutter (Chronic) Other specified cardiac device in situ (Chronic) Presence of coronary angioplasty implant and graft (Chronic) February 2005 IVUS of LAD, May 2005 PTCA & ALBAN X 3 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 [place] Paroxysmal atrial fibrillation (Chronic) Diabetes mellitus (Chronic) Hypertension (Chronic) Hyperlipidemia (Chronic) Nicotine abuse (Chronic) Hospital Course and Treatment Summary of Care Provided: Pateint seen by Alina ORTIZ under my supervision The patient is a 55 year old M with an extensive past medical history as outlined was admitted through the ED on 11/14/2020 with complaint of progressively worsening lower extremity swelling bilaterally for about a week. He has been doubling up on his home Lasix without any relief. He also had shortness of breath which had been gradually worsening. He had a stent orthopnea and PND and said he had been treated for pneumonia but symptoms persisted. Heart rate was noted to be elevated as well with EKG showing A. fib with rates of 100-1 10. He was admitted and managed for acute on chronic heart failure with preserved ejection fraction. BNP was not significantly elevated. Was started on IV Lasix 40 daily. He had recently had a stress test in April 2020 which showed gated EF of 59% and stress test was normal. Heart rate subsequently improved on his home dose of sotalol and metoprolol. Patient shortness of breath gradually improved and he remained stable. Lower extremity swelling also improved significantly. He remains on his baseline 3 L of oxygen. Patient was discharged home on 11/16/2020. He is to follow-up with his PCP and noise tester. Seen and examined prior to discharge. He looks much better and was sitting up eating breakfast. Review of systems otherwise negative. Labs and vitals reviewed. Home medication reviewed and reconciled. O/E: Vital Signs Temp Pulse Resp BP Pulse Ox 97.5 F L 78 19 H 101/66 91 11/16/20 09:27 11/16/20 13:00 11/16/20 13:00 11/16/20 09:27 11/16/20 15:40 General: Alert, Oriented x3, Cooperative HEENT: Atraumatic, PERRLA, EOMI, Normocephalic Neck: Supple, No JVD, Negative Carotid Bruits Lungs: Clear to auscultation, Normal air movement; on 3L of oxygen. Cardiovascular: No murmurs, Irregular Rate Abdomen: Bowel Sounds Present, Soft, Non Tender Extremities: Capillary Refill Less than 3 Seconds, both LEs wrapped in CARROLL bandage Skin: No rashes, No breakdown Musculoskeletal: No Tenderness to Palpation of Joints or Extremities Neurological: Cranial nerves II-XII grossly intact Psych/Mental Status: Normal Affect, Appropriate, Alert and oriented to time, place, person, mood and affect Plan is for discharge home today. Rest as per DIANA Lujan's his note which I reviewed and endorsed. - Physical Exam Vitals/I&O's: Vital Signs Temp Pulse Resp BP Pulse Ox 97.5 F L 78 19 H 101/66 91 11/16/20 09:27 11/16/20 13:00 11/16/20 13:00 11/16/20 09:27 11/16/20 15:40 Oxygen Flow Rate (L/min) [ 2 AMBULATION with Oxygen] Oxygen Flow Rate (L/min) [ 0 AMBULATING on Room Air] Oxygen Flow Rate (L/min) [At 0 REST on Room Air] Oxygen Flow Rate (L/min) 3 Oxygen Delivery Method Nasal Cannula Weight: 214 lb 8.156 oz Body Mass Index (BMI) 33.4 Finger Stick Blood Glucose 148 Intake and Output for Last 24 Hours 11/14/20 11/15/20 11/16/20 23:59 23:59 23:59 Intake Total 1040 / 1040 850 / 850 450 / 450 Output Total 2600 / 2600 2500 / 2500 1400 / 1400 Balance -1560 / -1560 -1650 / -1650 -950 / -950 Microbiology Past 72 Hours 11/14/20 02:40 Mucosa - Nasopharyngeal SARS-CoV-2 Antigen (Rapid) - Final Laboratory Results 11/15/20 17:15: POC Glucose 115 H 11/15/20 21:39: POC Glucose 199 H 11/16/20 06:13: WBC 11.2 H, RBC 4.51 L, Hgb 12.5 L, Hct 43.1, MCV 95.6 H, MCH 27.7, MCHC 29.0 L, RDW Std Deviation 54.2 H, RDW Coeff of Arleen 15.5 H, Plt Count 266, MPV 10.0 11/16/20 06:13: Sodium 137, Potassium 4.0, Chloride 100, Carbon Dioxide 34.0 H, Anion Gap 3 L, BUN 21 H, Creatinine 0.97, Estim Creat Clear Calc 83.25, Est GFR (MDRD) Af Amer 104, Est GFR (MDRD) Non-Af 86, BUN/Creatinine Ratio 21.7 H, Glucose 110 H, Calcium 8.8 11/16/20 07:02: POC Glucose 122 H 11/16/20 11:55: POC Glucose 170 H Current Medications Acetaminophen (Acetaminophen 325 Mg Tablet) 650 mg PO Q6H PRN PRN PRN Reason: Pain Score 1-10/Temp > 100.7 F Last Admin: 11/14/20 21:10 Dose: 650 mg Documented by: Albuterol Sulfate (Albuterol 2.5 Mg/3 Ml Vial.Neb.) 2.5 mg INHALATION Q2H PRN PRN PRN Reason: SOB/Wheezing Albuterol/Ipratropium (Ipratropium/Albuterol Sulfate 3 Ml Ampul.Neb) 3 ml INHALATION Q6HWA.RT [facility] Last Admin: 11/16/20 13:00 Dose: 3 ml Documented by: Aspirin (Aspirin E.C. 81 Mg Tablet) 81 mg PO DAILY [facility] Last Admin: 11/16/20 09:33 Dose: 81 mg Documented by: Atorvastatin Calcium (Atorvastatin Calcium 80 Mg Tablet) 80 mg PO QHS [facility] Last Admin: 12/17/20 23:28 Dose: 80 mg Documented by: Clopidogrel Bisulfate (Clopidogrel Bisulfate 75 Mg Tablet) 75 mg PO DAILY [facility] Last Admin: 11/16/20 09:56 Dose: 75 mg Documented by: Dextrose (Dextrose 50%-Water 25 Gm/50 Ml Disp.Syrin) 0 gm IV X1 PRN; Protocol PRN Reason: Hypoglycemia Duloxetine HCl (Duloxetine Hcl 60 Mg Capsule) 60 mg PO DAILY [facility] Last Admin: 11/16/20 09:33 Dose: 60 mg Documented by: Enoxaparin Sodium (Enoxaparin 40 Mg/0.4 Ml Syringe) 40 mg SC DAILY [facility] Last Admin: 11/16/20 09:35 Dose: 40 mg Documented by: Ferrous Sulfate (Ferrous Sulfate 325 Mg Tablet) 325 mg PO LUNCH [facility] Last Admin: 11/16/20 11:58 Dose: 325 mg Documented by: Furosemide (Furosemide 40 Mg/4 Ml Vial) 40 mg IV BID@1000,1800 [facility] Last Admin: 11/16/20 09:35 Dose: 40 mg Documented by: Gabapentin (Gabapentin 300 Mg Capsule) 900 mg PO TIDCM [facility] Last Admin: 11/16/20 11:58 Dose: 900 mg Documented by: Glucagon (Glucagon 1 Mg/Ml Syringe) 1 mg IM .X1 PRN PRN Reason: Hypoglycemia Guaifenesin (Guaifenesin 10 Ml Udc (200mg/10ml)) 10 ml PO Q6H PRN PRN PRN Reason: COUGH Hydralazine HCl (Hydralazine 20 Mg/Ml Vial) 5 mg IV Q4H PRN PRN PRN Reason: SBP > 160 OR DBP > 120 Sodium Chloride () 250 mls @ 15 mls/hr IV .[id number] PRN PRN Reason: Saline Flush Insulin Glargine (Insulin Glargine 100 Units/Ml Pen) 18 units SC BREAKFAST [facility] Last Admin: 11/16/20 09:57 Dose: 18 units Documented by: Insulin Human Lispro (Insulin Lispro 100 Unit/Ml Insuln.Pen) 0 unit SC ACHS [facility]; Protocol Last Admin: 11/16/20 16:13 Dose: Not Given Documented by: Isosorbide Mononitrate (Isosorbide Mononitrate 120 Mg Tablet) 120 mg PO DAILY [facility] Last Admin: 11/16/20 09:33 Dose: 120 mg Documented by: Loratadine (Loratadine 10 Mg Tablet) 10 mg PO DAILY [facility] Last Admin: 11/16/20 09:33 Dose: 10 mg Documented by: Melatonin (Melatonin 3 Mg Tablet) 3 mg PO QHS PRN PRN PRN Reason: INSOMNIA Metoprolol Succinate (Metoprolol(Xl)Succ 50 Mg Tablet) 50 mg PO DAILY [facility] Last Admin: 11/16/20 09:34 Dose: 50 mg Documented by: Nitroglycerin (Nitroglycerin (Inpatient Use) 0.4 Mg Tab.Subl) 0.4 mg SUBLINGUAL Q5M PRN PRN Reason: CARDIAC/CHEST PAIN Ondansetron HCl (Ondansetron 4 Mg/2 Ml Vial) 4 mg IV Q8H PRN PRN PRN Reason: NAUSEA/VOMITING Pantoprazole Sodium (Pantoprazole Sodium 40 Mg Tablet) 40 mg PO DAILY [facility] Last Admin: 11/16/20 09:34 Dose: 40 mg Documented by: Pramipexole Dihydrochloride (Pramipexole Di-Hcl 0.125 Mg Tablet) 0.125 mg PO QHS [facility] Last Admin: 11/15/20 23:27 Dose: 0.125 mg Documented by: Pregabalin (Pregabalin 50 Mg Capsule) 100 mg PO TID [facility] Last Admin: 11/16/20 13:22 Dose: 100 mg Documented by: Senna/Docusate Sodium (Senna/Docusate Sodium 1 Tablet) 2 tablet PO BID PRN PRN PRN Reason: Constipation Sodium Chloride (0.9% Saline Lock 10 Ml Syringe) 10 - 40 ml IV UD PRN PRN Reason: SALINE FLUSH Last Admin: 11/15/20 08:59 Dose: 10 ml Documented by: Sotalol HCl (Sotalol Hydrochloride 80 Mg Tablet) 120 mg PO BID [facility] Last Admin: 11/16/20 09:33 Dose: 120 mg Documented by: Tamsulosin HCl (Tamsulosin Hcl 0.4 Mg Capsule) 0.4 mg PO DAILY@1730 [facility] Last Admin: 11/15/20 17:20 Dose: 0.4 mg Documented by: Tramadol HCl (Tramadol 50 Mg Tablet) 50 mg PO Q6H PRN PRN PRN Reason: Pain Score 4-10 Last Admin: 11/16/20 13:22 Dose: 50 mg Documented by: Trazodone HCl (Trazodone 100 Mg Tablet) 150 mg PO QHS [facility] Last Admin: 11/15/20 23:25 Dose: 150 mg Documented by: Inpatient E&M: [id number] Disch Hosp
[2020-11-16 12:15] LABS: Bedside Glucose 170 mg/dL (70-110)
--- NOTE | 2020-11-16 12:35 | CASEMGMT ---
Addendum entered by Lea Loredo 11/16/20 15:46: Per oxygen qualification, pt does not qualify for increased O2 at this time. Enrique HERNANDEZ CM Addendum entered by Lea Loredo 11/16/20 15:36: Pt states no need for any further resources at this time. Awaiting O2 testing results to fax new order to [facility]. Enrique HERNANDEZ CM Original Note: Marisol HERNANDEZ aware that pt needs education on insulin pen and will need tested on 2liters nc at this time, voices understanding. Enrique HERNANDEZ CM
--- NOTE | 2020-11-16 12:54 | PHA.DC.MC ---
Pharmacy Service has performed discharge medication reconciliation and counseling for this patient. 1. INSULIN GLARGINE 20UNITS SC BREAKFAST 2. TAMSULOSIN 0.4MG PO DAILY The patient's discharge medication list was reviewed for discrepancies and discrepancies were resolved. Home Medications Gabapentin [Neurontin] 1,200 mg PO TIDCM 12/07/15 metFORMIN HCl [Glucophage] 1,000 mg PO BIDCM 12/07/15 duloxetine 60 mg capsule,delayed release 60 mg PO DAILY 01/13/18 ferrous sulfate 325 mg (65 mg iron) tablet 325 mg PO DAILY tab 11/26/18 Albuterol IH (ProAir) [Proair Hfa] 2 puff INHALATION Q6H PRN PRN 11/09/19 Albuterol Sulfate 1 dose IH Q4H PRN PRN 11/09/19 Nitroglycerin 0.4 mg SL PRN PRN 11/09/19 pantoprazole 40 mg tablet,delayed release 40 mg PO DAILY 11/11/19 pregabalin 100 mg capsule 100 mg PO TID cap 11/11/19 ropinirole 0.25 mg tablet 0.5 mg PO QHS 11/11/19 tiotropium 2.5 mcg-olodaterol 2.5 mcg/actuation mist for inhalation 2 puff INHALATION DAILY 11/11/19 trazodone 150 mg tablet 150 mg PO QHS 11/11/19 Loratadine 10 mg PO DAILY 04/30/20 aspirin 81 mg tablet,delayed release 81 mg PO DAILY 05/24/20 atorvastatin 80 mg tablet 80 mg PO QHS #90 tab 05/24/20 clopidogrel 75 mg tablet 75 mg PO DAILY #90 tab 05/24/20 isosorbide mononitrate 120 mg tablet,extended release 24 hr 120 mg PO DAILY #90 tab 05/24/20 lisinopril 10 mg tablet 10 mg PO DAILY #90 tab 05/24/20 metoprolol succinate 50 mg tablet,extended release 24 hr 50 mg PO DAILY #90 tab 05/24/20 sotalol 120 mg tablet 120 mg PO BID #180 tab 05/24/20 Furosemide 40 mg PO BID #60 tab 11/16/20 Insulin Glargine [Lantus SoloStar Pen] 20 units SC BREAKFAST #1 box 11/16/20 Pen Needle, Diabetic [Pen [place]] 1 ea MC DAILY #1 box 11/16/20 Tamsulosin HCl [Flomax] 0.4 mg PO DAILY@1730 #30 cap 11/16/20 The patient was counseled on the following discharge medications and changes in medications for homegoing were reviewed. The Reason for Use, instructions for use, and potential side effects were reviewed for all new medications. The patient's questions regarding all of their medications were answered. The patient was able to verbally demonstrate an understanding of their discharge medications.
[2020-11-16 16:15] LABS: Bedside Glucose 81 mg/dL (70-110)
--- NOTE | 2020-11-20 14:19 | CASEMGMT ---
DAVID GIBBONS Discharge Follow-Up Phone Call. Millie: Zainab Strata: 3 Discharge Date: 11/16/20 Adm Dx: Acute Exac CHF Call to pt to inquire about how he has been doing since being discharged from the hospital. Pt states he is Doing okay but states he is still having intermittent CP and SOB. He states this has been occurring for a long time, but that it has been seeming like it is getting worse. He reports that he has to turn his oxygen up to 5 L/M when at home for me to feel like I can breath. Per notes, pt's home O2 order is for 2 L/M. Pt confirms this is correct, but states, They tell me I don't need more than that, but I don't feel right unless it's up to that. DAVID GIBBONS advised pt to either return to the ER if symptoms are worsening or to contact Dr Swift's office as soon as this conversation is done. Pt voices appreciation for the advice, but states, I probably won't do either. I'd rather than have to keep going back to the hospital. DAVID GIBBONS inquired if he is home alone or if there is someone with him.. He states that he is not alone and family is there with him, but states, They don't give a F about me. I have a lot of stresss. There's just a lot going on. He states, I'm all right. There's just a lot of stress going on. DAVID GIBBONS inquired about his medications and if he has any questions. 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 He confirms he is taking Lasix 40 mg BID. He denies having any questions about the new or prior meds. He states he forgets to take his meds every day, though. Discussed CCN with pt for medication set-up/teaching, but he declines, stating, I don't care to do any of that. I'm not interested. He states his daughter helps set up his medications, but states, I just forget to take it. Pt also states, I probably won't go to those appts that were made for me either. DAVID GIBBONS inquired of the reason, and he stated, I'm just tired of all of this sh%*. Pt states he appreciates DAVID GIBBONS calling him. DAVID GIBBONS again encouraged pt to contact Dr Swift's office or to even return to ER if needed, but he again states he does not want to do either. He thanked DAVID GIBBONS for calling and denies further needs/concerns/questions. Michael MERRILLN DAVID CM
== END 2020-11-16 16:45 | disposition home or self-care (01) | DRG 194 ==
LOC: ED 03:22 → PCU 04:02
PROVIDERS: Nurse Practitioner Family; Physician Assistant; Admitting Provider Hospitalist; Emergency Provider Emergency Medicine; PCP Family Medicine; Visit Provider Student in an Organized Health Care Education/Training Program
DX: I13.0 Hypertensive heart and chronic kidney disease with heart failure and stage 1 through stage 4 chronic kidney disease, or unspecified chronic kidney disease (principal); I25.10 Atherosclerotic heart disease of native coronary artery without angina pectoris; G47.33 Obstructive sleep apnea (adult) (pediatric); J96.11 Chronic respiratory failure with hypoxia; J44.9 Chronic obstructive pulmonary disease, unspecified; Z95.1 Presence of aortocoronary bypass graft; E78.5 Hyperlipidemia, unspecified; E11.51 Type 2 diabetes mellitus with diabetic peripheral angiopathy without gangrene; E11.40 Type 2 diabetes mellitus with diabetic neuropathy, unspecified; I48.3 Typical atrial flutter; F17.200 Nicotine dependence, unspecified, uncomplicated; E11.22 Type 2 diabetes mellitus with diabetic chronic kidney disease; E11.65 Type 2 diabetes mellitus with hyperglycemia; F32.9 Major depressive disorder, single episode, unspecified; K21.9 Gastro-esophageal reflux disease without esophagitis; G25.81 Restless legs syndrome; D64.9 Anemia, unspecified; N18.30 Chronic kidney disease, stage 3 unspecified; R39.11 Hesitancy of micturition; I48.0 Paroxysmal atrial fibrillation; I50.33 Acute on chronic diastolic (congestive) heart failure
CPT/HCPCS: 36415; 71045; 80048; 82962; 83036; 83880; 84443; 84484; 85025; 85027; 87426; 93005; 93306; 94640; 94660; 97110; 97162; 97166; 97535; 99285; 99406; Q9957; A4216; C8929; J1940

== ENCOUNTER 2020-12-18 17:04 | Observation (INO) | payer MEDICAID, SELFPAY ==
[2020-11-14 04:35] VITALS: BMI 33.4
[2020-12-18 17:04] VITALS: BP 115/65; PULSE 75; RESP 18; TEMP 36.1; O2SAT 94; BMI 27.9
--- NOTE | 2020-12-18 17:07 | EKG12_ITS ---
Test Reason : CP ADMISSION Blood Pressure : / mmHG Vent. Rate : 070 BPM Atrial Rate : 070 BPM P-R Int : 164 ms QRS Dur : 086 ms QT Int : 460 ms P-R-T Axes : 069 051 112 degrees QTc Int : 496 ms Normal sinus rhythm Inferior infarct , age undetermined T wave abnormality, consider lateral ischemia Abnormal ECG Confirmed by JHON LOMELI, SMITA ([id number]), newspaper photo editor EDITH MENARD ([id number]) on 12/20/2020 2:32:08 PM Referred By: TRISH Confirmed By:SMITA FERREIRA MD
--- NOTE | 2020-12-18 17:15 | ED.VIS.GEN ---
History of Present Illness Chief Complaint: Chest Pain Narrative: Patient is a 55-year-old male who presents with chest pain. He does have a history of coronary artery disease with prior CABG and stents. He states that he has daily chest pain which is usually sharp and brief. However today he has had pain persistently all day. He complains of pain in the center of his chest and between his shoulder blades. He complains of an aching pain from her shoulders to his upper arms both arms but left greater than right. He otherwise denies any recent illness. No fevers cough nausea vomiting diarrhea. He was seen at his primary care provider's office with the symptoms and due to abnormal EKG and history was sent here for further evaluation. He states his pain was initially about a 6 out of 10. He was given aspirin and nitroglycerin by EMS which did transiently relieve of symptoms but he states they are beginning to return. Patient also complains of chronic shortness of breath but he has had increased shortness of breath recently particularly with exertion. He did have a pharmacologic stress test in April of last year which showed no ischemic changes. Past Medical History - Allergies and Home Meds Allergies/Adverse Reactions: Allergies seasonal Allergy (Uncoded 12/18/20 17:31) SOB Primary Care Physician: Blaze Louis MD [Primary Care Provider] - Past Medical History: - - Diabetes, hypertension, coronary artery disease, CHF Surgical History: coronary bypass surgery Smoking Status: Current every day smoker - Family History Maternal Family History: Family History (Last Reviewed 11/14/20 @ 05:[address] Jeferson Mcfarlane MD) Father CAD (coronary artery disease) COPD (chronic obstructive pulmonary disease) CHF (congestive heart failure) Mother COPD (chronic obstructive pulmonary disease) Family History: Reports: No pertinent history Paternal Family History: Family History (Last Reviewed 11/14/20 @ 05:[address] Jeferson Mcfarlane MD) Father CAD (coronary artery disease) COPD (chronic obstructive pulmonary disease) CHF (congestive heart failure) Mother COPD (chronic obstructive pulmonary disease) Family History: Reports: No pertinent history Review of Systems All systems negative except as indicated General: Denies: Fever Eyes: Denies: Visual changes - bilaterally ENT: Denies: Bilateral ear pain Cardiovascular: Reports: Chest pain Respiratory: Reports: Dyspnea. Denies: Cough Gastrointestinal: Denies: Abdominal pain, Nausea, Vomiting, Diarrhea Musculoskeletal: Reports: Extremity Pain Skin: Denies: Rash Neurological: Denies: Headache Endocrine: Denies: Polyuria Hematologic: Denies: Easy bruising Allergy: Denies: Uticaria Physical Exam Vital Signs/Narrative: Vital Signs Temp Pulse Resp BP Pulse Ox 12/18/20 17:04 96.9 F L 75 18 115/65 94 Inital Vital Signs reviewed: Yes General: Well nourished Head: Normocephalic Eyes: Perrl, EOMI ENT: Moist mucous membranes Neck: Supple Cardiovascular: Regular rate, Regular rhythm, - - Easily palpable symmetric radial pulses Respiratory: No distress, CTA bilaterally. Negative for: Rales, Rhonchi, Wheezing Abdomen: Soft, Nontender, Nondistended Extremities: Nontender Skin: Normal color Neurological: Alert Psychological: Normal affect Diagnostic/Tx/Re-eval Impressions Chest X-Ray 12/18/20 17:20 IMPRESSION: Mild bibasilar interstitial prominence. Electronically Signed: Cruz Rodríguez DO at 17:51 EST Tel [phone], Service support , 12/18/20 17:20 Chest 1 View (Portable) [RAD] Stat Laboratory Results 12/18/20 12/18/20 12/18/20 17:10 17:10 17:10 WBC 12.9 H RBC 5.16 Hgb 14.2 Hct 46.2 MCV 89.5 MCH 27.5 MCHC 30.7 L RDW Std Deviation 52.7 H RDW Coeff of Arleen 15.9 H Plt Count 298 MPV 10.5 Immature Gran % (Auto) 0.300 Neut % (Auto) 72.8 H Lymph % (Auto) 14.9 L [place] % (Auto) 8.7 Eos % (Auto) 2.7 Baso % (Auto) 0.6 Absolute Neuts (auto) 9.4 H Absolute Lymphs (auto) 1.91 Nucleated RBC % 0 Sodium 140 Potassium 3.5 Chloride 106 Carbon Dioxide 28.0 Anion Gap 6 BUN 9 Creatinine 1.11 Estim Creat Clear Calc 75.19 Est GFR (MDRD) Af Amer 88 Est GFR (MDRD) Non-Af 73 BUN/Creatinine Ratio 8.1 L Glucose 145 H Calcium 9.7 Troponin I 0.016 B-Natriuretic Peptide 76.5 - Medical Decision Making Patient received aspirin and nitroglycerin prior to presentation here. It did help but his pain is beginning to return. He he had Nitropaste applied and was also given morphine and Zofran. Initial laboratory studies are unremarkable with normal BNP and negative troponin. One-view portable chest x-ray on my interpretation showed no acute findings. This was read by radiology as mild bibasilar social prominence. Patient does feel better after medications here. Patient discussed with hospitalist who agrees to place in observation for further evaluation. ED Disposition - Plan for ED Patient: Disposition: Acute Care Hospital [facility] Diagnosis: Chest pain Referrals: Blaze Louis MD [Primary Care Provider] -
--- NOTE | 2020-12-18 17:20 | RAD_ITS ---
STUDY: X-RAY CHEST REASON FOR EXAM: Male, 55 years old. CHEST PAIN TECHNIQUE: Frontal view COMPARISON: 11/14/2020 FINDINGS: Stable sternotomy wires. The lungs are expanded. Mild bibasilar interstitial prominence. Normal size heart. Normal mediastinum and ranjit. Normal visualized pulmonary arteries. Normal visualized aortic arch and descending thoracic aorta. Normal visualized thoracic spine. Normal visualized ribs, clavicles, and shoulders. There is no demonstrated abnormality of the visualized soft tissue structures of the upper abdomen. RAD/Chest 1 View (Portable) IMPRESSION: Mild bibasilar interstitial prominence. Electronically Signed: Cruz Rodríguez DO at 17:51 EST Tel [phone], Service support ,
[2020-12-18 17:23] LABS: Absolute Lymphocyte Count 1.91 X10^3/uL (0.83-4.51); Absolute Neutrophil Count 9.4 X10^3/uL (2.0-7.7); Basophil# 0.08 X10^3/uL; Basophil% 0.6 % (0-1); Eosinophil# 0.35 X10^3/uL; Eosinophils% 2.7 % (0-5); Hematocrit 46.2 % (40-54); Hemoglobin 14.2 g/dL (13.0-16.5); Lymphocyte # 1.91 X10^3/ul (4.0); Lymphocyte % 14.9 % (19-41); Mean Corp Hgb Conc 30.7 g/dL (32-36); Mean Corpuscular Hgb 27.5 pg (27.0-32.0); Mean Corpuscular Volume 89.5 fL (80-94); Mean Platelet Vol. 10.5 fl (6.2-12.0); Monocyte# 1.12 X10^3/uL; Monocyte% 8.7 % (0-10); NRBC Flagged by Analyzer 0 % (0-5); Neutrophil # 9.35 X10^3/uL (2.7-7.7); Neutrophil % 72.8 % (47-70); Platelet Count 298 K/mm3 (150-450); RBC Distribution Width CV 15.9 % (11.6-14.6); RBC Distribution Width SD 52.7 fl (35.1-43.9); Red Blood Count 5.16 M/mm3 (4.6-6.2); White Blood Count 12.9 K/mm3 (4.4-11.0)
[2020-12-18 17:29] VITALS: BP 112/66; PULSE 74
[2020-12-18] MEDS: Nitroglycerin Oint 1 INCH PACKET 0.5 INCH TD (17:29)
[2020-12-18] MEDS: Morphine 4 MG/ML Syringe IV (17:29)
[2020-12-18] MEDS: Ondansetron 4 MG/2 ML Vial IV (17:29)
[2020-12-18 17:36] LABS: Anion Gap 6 (5-15); BUN 9 mg/dL (7-18); BUN/Creat Ratio 8.1 RATIO (10-20); Calcium,Total 9.7 mg/dL (8.5-10.1); Chloride 106 mmol/L (98-107); Creatinine, Serum 1.11 mg/dL (0.70-1.30); EST Glomerular Filtration Rate 73 mL/min (>60); Est Glom Filt Rate - Afr Amer 88 mL/min (>60); Estimated Creatinine Clearance 75.19 ml/min; Glucose 145 mg/dL (74-106); Potassium 3.5 mmol/L (3.5-5.1); Sodium Level 140 mmol/L (136-145)
[2020-12-18 18:19] LABS: BNP,B-Type NATRIURETIC PEPTIDE 76.5 pg/mL (0-100)
--- NOTE | 2020-12-18 18:29 | HP.PCM_ITS ---
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 (4) Smoking greater than 40 pack years Status: Chronic (5) Chronic obstructive pulmonary disease Status: Chronic Qualifiers: COPD type: emphysema Emphysema type: centrilobular Qualified Code(s): J43.2 - Centrilobular emphysema (6) Paroxysmal atrial fibrillation Status: Chronic (7) Diabetes mellitus Status: Chronic Qualifiers: Diabetes mellitus type: type 2 Diabetes mellitus assisted insulin use: with assisted use Diabetes mellitus complication status: with other specified complication Qualified Code(s): E11.69 - Type 2 diabetes mellitus with other specified complication; Z79.4 - halfway (current) use of insulin (8) Hyperlipidemia Status: Chronic Qualifiers: Hyperlipidemia type: unspecified Qualified Code(s): E78.5 - Hyperlipidemia, unspecified (9) Nicotine abuse Status: Chronic History of Present Illness Date of Admission: 12/18/20 Chief Complaint: Chest pain - 2 days The patient is a 55 year old M with past medical history of CAD status post CABG, status post multiple stents, chronic nicotine dependence, type II DM, COPD/KENNETH who comes in with complaints of chest pain that has been going on for days. He describes his chest pain as dull, persistent, starts from the back radiates to the front, worse with exertion, relieved with rest, has been persistent. He went to see his primary care doctor who referred him to the ED when his EKG was abnormal. Pain seems to radiate to the left. He denied any diaphoresis or dizziness but admits to palpitation. His chest pain was relieved with aspirin and nitro. He subsequently got the Nitropaste placed in the ED. At time of being seen, patient stated that his chest pain was much improved. Vitals in the ED showed temperature of 97.6F, heart rate 64, blood pressure 148/74, respiratory rate 19, SPO2 is 96% on 3 L of oxygen. Her WBC count is 12.9, hemoglobin 14.2, platelet count 298, sodium 140, potassium 3.5, chloride 106, bicarbonate 28, BUN 9, creatinine 1.11, previous creatinine was 0.97, glucose is 145, BNP 76.5 Chest X-ray shows mild bibasilar interstitial prominence. EKG showed deepening T wave inversions in the anterolateral leads, which is similar to his previous EKG. Past Medical History Past Medical History (Chronic Problems): Chronic Problems (Last Updated 12/13/20 @ 17:17 by Dorina Huff) Essential hypertension (Chronic) Atherosclerosis of coronary artery of [place] heart without angina pectoris (Chronic) Chest pain (Chronic) KENNETH and COPD overlap syndrome (Chronic) Smoking greater than 40 pack years (Chronic) Chronic obstructive pulmonary disease (Chronic) PAD (peripheral artery disease) (Chronic) Hx of CABG (Chronic ~10/2005) CABG X 3 vessels, CARTER to LAD, SVG to OM1, SVG to OM3 11/03 Typical atrial flutter (Chronic) Other specified cardiac device in situ (Chronic) Presence of coronary angioplasty implant and graft (Chronic) February 2005 IVUS of LAD, May 2005 PTCA & ALBAN X 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 [place] Paroxysmal atrial fibrillation (Chronic) Diabetes mellitus (Chronic) Hyperlipidemia (Chronic) Nicotine abuse (Chronic) Medical History: Medical History (Last Updated 12/13/20 @ 17:17 by Dorina Huff) Essential hypertension (Chronic) I10 Atherosclerosis of coronary artery of [place] heart without angina pectoris (Chronic) I25.10 Lower extremity edema (Acute) R60.0 Leg swelling (Inactive) M79.89 Chest pain (Chronic) R07.9 KENNETH and COPD overlap syndrome (Chronic) G47.33, J44.9 Smoking greater than 40 pack years (Chronic) F17.210 Chronic obstructive pulmonary disease (Chronic) J44.9 PAD (peripheral artery disease) (Chronic) I73.9 Typical atrial flutter (Chronic) I48.3 Other specified cardiac device in situ (Chronic) Z95.818 Paroxysmal atrial fibrillation (Chronic) I48.0 Diabetes mellitus (Chronic) E11.9 Hyperlipidemia (Chronic) E78.5 Nicotine abuse (Chronic) Z72.0 Chronic anticoagulation Z79.01 Rectal bleeding K62.5 Allergies seasonal Allergy (Uncoded 12/18/20 17:31) SOB Home Medications: Ambulatory Orders Medication Instructions Recorded Gabapentin [Neurontin] 1,200 mg PO TIDCM 12/07/15 duloxetine 60 mg capsule,delayed 60 mg PO DAILY 01/13/18 release ferrous sulfate 325 mg (65 mg 325 mg PO DAILY tab 11/26/18 iron) tablet Albuterol IH (ProAir) [Proair Hfa] 2 puff INHALATION Q6H PRN PRN 11/09/19 Albuterol Sulfate 1 dose IH Q4H PRN PRN 11/09/19 Nitroglycerin 0.4 mg SL PRN PRN 11/09/19 pantoprazole 40 mg tablet,delayed 40 mg PO DAILY 11/11/19 release pregabalin 100 mg capsule 100 mg PO TID cap 11/11/19 ropinirole 0.25 mg tablet 0.5 mg PO QHS 11/11/19 tiotropium 2.5 mcg-olodaterol 2.5 2 puff INHALATION DAILY 11/11/19 mcg/actuation mist for inhalation trazodone 150 mg tablet 150 mg PO QHS 11/11/19 Loratadine 10 mg PO DAILY 04/30/20 aspirin 81 mg tablet,delayed 81 mg PO DAILY 05/24/20 release atorvastatin 80 mg tablet 80 mg PO QHS #90 tab 05/24/20 isosorbide mononitrate 120 mg 120 mg PO DAILY #90 tab 05/24/20 tablet,extended release 24 hr lisinopril 10 mg tablet 10 mg PO DAILY #90 tab 05/24/20 Furosemide 40 mg PO BID #60 tab 11/16/20 Pen Needle, Diabetic [Pen [place]] 1 ea MC DAILY #1 box 11/16/20 Budesonide/Formoterol 160/4.5 2 puff INHALATION BID 12/18/20 [Symbicort 160/4.5 Mcg Inhaler (SP)] Clopidogrel Bisulfate [Clopidogrel] 75 mg PO DAILY 12/18/20 Ezetimibe [Zetia] 10 mg PO DAILY 12/18/20 Insulin Glargine [Lantus SoloStar 20 units SC BREAKFAST 12/18/20 Pen] Metoprolol Succinate [Toprol Xl] 100 mg PO DAILY 12/18/20 Sotalol HCl [Sotalol] 120 mg PO BID 12/18/20 Tamsulosin HCl [Flomax] 0.4 mg PO DAILY@1730 12/18/20 Surgical History: Surgical History (Last Updated 12/13/20 @ 17:17 by Dorina Huff) Hx of CABG (Chronic) Onset Date: ~10/2005 Z95.1 CABG X 3 vessels, CARTER to LAD, SVG to OM1, SVG to OM3 11/03 Presence of coronary angioplasty implant and graft (Chronic) Z95.04 March 2005 IVUS of LAD, May 2005 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 [place] History of open reduction and internal fixation (ORIF) procedure Z98.890 Left lower extremity Surgical History: coronary bypass surgery, - - Left lower leg ORIF, status post 9 stents Psychiatric History: Depression Smoking Status: Current every day smoker Tobacco Use: Cigarettes Alcohol: None - *Family History Maternal Family History: Family History (Last Reviewed 11/14/20 @ 05:[address] Jeferson Mcfarlane MD) Father CAD (coronary artery disease) COPD (chronic obstructive pulmonary disease) CHF (congestive heart failure) Mother COPD (chronic obstructive pulmonary disease) History Items: Cancer - Lung cancer, COPD Paternal Family History: Family History (Last Reviewed 11/14/20 @ 05:[address] Jeferson Mcfarlane MD) Father CAD (coronary artery disease) COPD (chronic obstructive pulmonary disease) CHF (congestive heart failure) Mother COPD (chronic obstructive pulmonary disease) History Items: COPD, Heart Disease Review of Systems Constitutional: Reports: Weakness, Fatigue. Denies: Anorexia, Chills, Fever, Night Sweats, Malaise, Weight Change Eyes: Denies: Blurred vision, Cataracts, Conjunctivae Inflammation, Pain, Redness, Vision Change HEENT: Denies: Difficulty Hearing, Difficulty Swallowing, Head Aches, Hearing Changes, Sinus Congestion, Sinus Drainage Cardiovascular: Reports: Chest Pain, Chest Pressure, Chest Tightness, Light Headedness. Denies: Orthopnea, Palpitations, Paroxysmal Noc. Dyspnea Respiratory: Denies: Cough, Hemoptysis, Shortness of Breath, Shortness of breath at rest, Shortness of breath upon exertion, Sputum production Gastrointestinal: Denies: Abdominal Pain, Constipation, Hematemesis, Hematochezia, Nausea, Vomiting Genitourinary: Denies: Dysuria, Frequency, Incontinence, Nocturia Musculoskeletal: Denies: Joint Pain, Joint stiffness, Joint swelling, Joint Tenderness Skin: Denies: Rash, Wounds Neurological: Denies: Difficulty swallowing, Focal weakness, Numbness, Tingling Psychiatric: Denies: Anxiety, Depression, Homicidal Ideations, Suicidal Ideations Hematologic/ Lymphatic: Denies: Easy Bruising, Easy Bleeding VTE Information - Inpt Only VTE Present on Admission: No VTE Pharm Prophylaxis ordered?: Yes - Physical Exam Vitals/I&O's: Vital Signs Temp Pulse Resp BP Pulse Ox 96.9 F L 74 18 112/66 94 12/18/20 17:04 12/18/20 17:29 12/18/20 17:04 12/18/20 17:29 12/18/20 17:04 Oxygen Delivery Method Room Air Weight: 85.871 kg Body Mass Index (BMI) 27.9 Finger Stick Blood Glucose 148 General: Alert, Oriented x3, Cooperative, No apparent distress HEENT: Atraumatic, PERRLA, EOMI, Normocephalic Oral: Moist Mucosa Neck: Supple Lungs: Clear to auscultation, Normal air movement Cardiovascular: Regular rate, Regular Rhythm, Normal S1, Normal S2, No murmurs Abdomen: Bowel Sounds Present, Soft, Non Tender, Non-Distended, No Hepato- splenomegaly Extremities: No edema Skin: No rashes, No breakdown Musculoskeletal: No Tenderness to Palpation of Joints or Extremities Lymphatic: No Cervical, Supraclavicular, or Inguinal Adenopathy Neurological: Cranial nerves II-XII grossly intact, Neuro grossly intact Psych/Mental Status: Normal Affect, Appropriate Laboratory Results 12/18/20 17:10: WBC 12.9 H, RBC 5.16, Hgb 14.2, Hct 46.2, MCV 89.5, MCH 27.5, MCHC 30.7 L, RDW Std Deviation 52.7 H, RDW Coeff of Arleen 15.9 H, Plt Count 298, MPV 10.5, Immature Gran % (Auto) 0.300, Neut % (Auto) 72.8 H, Lymph % (Auto) 14.9 L, [place] % (Auto) 8.7, Eos % (Auto) 2.7, Baso % (Auto) 0.6, Absolute Neuts (auto) 9.4 H, Absolute Lymphs (auto) 1.91, Nucleated RBC % 0 12/18/20 17:10: Sodium 140, Potassium 3.5, Chloride 106, Carbon Dioxide 28.0, Anion Gap 6, BUN 9, Creatinine 1.11, Estim Creat Clear Calc 75.19, Est GFR (MDRD) Af Amer 88, Est GFR (MDRD) Non-Af 73, BUN/Creatinine Ratio 8.1 L, Glucose 145 H, Calcium 9.7, Troponin I 0.016 12/18/20 17:10: B-Natriuretic Peptide 76.5 Assessment/Plan All Active Problems (Last Updated 12/13/20 @ 17:17 by Dorina Huff) Lower extremity edema (Acute) 1. Chest pain, typical in a patient with history of CABG/multiple stents EKG shows deepening anterior lateral T wave inversions Troponins are negative Patient had a stress test in April that was negative We will trend troponins, continue Nitropaste Continue on aspirin, statin, Plavix, Zetia, isosorbide, metoprolol Cardiology consult for possible cardiac catheterization 2. Chronic atrial fibrillation/atrial flutter, status post DC cardioversion In normal sinus rhythm now, continue metoprolol, sotalol, Not on anticoagulation because of history of rectal bleed 3. Type II DM complicated by peripheral neuropathy, continue on insulin regimen 4. Iron deficiency anemia, hemoglobin is stable, continue on ferrous sulfate 5. Nicotine dependence, advised to quit, on replacement 6. DVT prophylaxis with heparin subcu OBSV E&M: 80401 Initial observation care L3
[2020-12-18 19:32] VITALS: PULSE 98
[2020-12-18 19:34] VITALS: BP 115/82; PULSE 75; RESP 16; TEMP 36.6; O2SAT 95
[2020-12-18 19:39] VITALS: BMI 28.0
[2020-12-18 19:43] VITALS: BMI 27.8
[2020-12-18 20:02] LABS: AST(SGOT) 10 U/L (15-37); Alanine Aminotransfer ALT/SGPT 16 U/L (16-61); Albumin, Serum 3.3 g/dL (3.2-5.0); Alkaline Phosphatase 108 U/L (45-117); Bilirubin, Direct 0.13 mg/dL (0.00-0.30); Globulin 3.8 g/dL (2.2-4.2); Protein, Total 7.1 g/dL (6.4-8.2)
[2020-12-18 20:50] VITALS: BP 116/71; PULSE 70; RESP 18; TEMP 36.1; O2SAT 98
--- NOTE | 2020-12-18 21:00 | EKG12_ITS ---
Test Reason : CP Blood Pressure : / mmHG Vent. Rate : 073 BPM Atrial Rate : 073 BPM P-R Int : 164 ms QRS Dur : 088 ms QT Int : 444 ms P-R-T Axes : 058 054 126 degrees QTc Int : 489 ms Sinus rhythm with Premature atrial complexes T-wave inversion in Lateral leads Prolonged QT Confirmed by ZACH LOMELI, TED ([id number]), offline editor CANDICE ZAZUETA ([id number]) on 12/31/2020 11:24:19 AM Referred By: CALI Confirmed By:ALY SERRANO MD
[2020-12-18] MEDS: Heparin Injection (Vial) 5,000 UNIT/ML VIAL 5000 UNIT SC (21:02)
[2020-12-18] MEDS: traZODone 50 MG Tablet 150 MG PO (21:02)
[2020-12-18] MEDS: Atorvastatin Calcium 80 MG Tablet PO (21:02)
[2020-12-18] MEDS: Pramipexole Di-HCl 0.25 MG Tablet PO (21:02)
[2020-12-18] MEDS: Sotalol Hydrochloride 80 MG Tablet 120 MG PO (21:05)
[2020-12-18] MEDS: Gabapentin 600 MG Tablet 1200 MG PO (21:05)
[2020-12-18] MEDS: oxyCODONE 5 MG Tablet PO (21:05)
[2020-12-18] MEDS: Pregabalin 50 MG Capsule 100 MG PO (22:38)
[2020-12-18 22:46] LABS: Bedside Glucose 110 mg/dL (70-110)
[2020-12-18 23:00] VITALS: PULSE 68
[2020-12-19] VITALS (13 sets, daily range): BP systolic 102–113; BP diastolic 56–68; PULSE 55–70; RESP 16–24; TEMP 36.1–36.7; O2SAT 90–97
[2020-12-19] MEDS: Heparin Injection (Vial) 5,000 UNIT/ML VIAL 5000 UNIT SC ×3 (05:35→21:12)
[2020-12-19] MEDS: Pregabalin 50 MG Capsule 100 MG PO ×3 (05:37→21:13)
[2020-12-19] MEDS: Acetaminophen 325 MG Tablet 650 MG PO (05:42)
[2020-12-19 06:02] LABS: Absolute Lymphocyte Count 2.08 X10^3/uL (0.83-4.51); Absolute Neutrophil Count 6.5 X10^3/uL (2.0-7.7); Basophil# 0.09 X10^3/uL; Basophil% 0.9 % (0-1); Eosinophil# 0.36 X10^3/uL; Eosinophils% 3.6 % (0-5); Hematocrit 45.6 % (40-54); Hemoglobin 13.8 g/dL (13.0-16.5); Lymphocyte # 2.08 X10^3/ul (4.0); Lymphocyte % 20.7 % (19-41); Mean Corp Hgb Conc 30.3 g/dL (32-36); Mean Corpuscular Hgb 27.2 pg (27.0-32.0); Mean Corpuscular Volume 89.9 fL (80-94); Mean Platelet Vol. 10.5 fl (6.2-12.0); Monocyte# 0.94 X10^3/uL; Monocyte% 9.4 % (0-10); NRBC Flagged by Analyzer 0 % (0-5); Neutrophil # 6.53 X10^3/uL (2.7-7.7); Platelet Count 271 K/mm3 (150-450); RBC Distribution Width CV 16.1 % (11.6-14.6); RBC Distribution Width SD 53.2 fl (35.1-43.9); Red Blood Count 5.07 M/mm3 (4.6-6.2)
[2020-12-19 06:35] LABS: ALB/GLOB Ratio 0.8 RATIO (0.9-2.4); AST(SGOT) 8 U/L (15-37); Alanine Aminotransfer ALT/SGPT 14 U/L (16-61); Albumin, Serum 3.1 g/dL (3.2-5.0); Alkaline Phosphatase 101 U/L (45-117); Anion Gap 3 (5-15); BUN 14 mg/dL (7-18); BUN/Creat Ratio 10.3 RATIO (10-20); Chloride 104 mmol/L (98-107); Creatinine, Serum 1.36 mg/dL (0.70-1.30); EST Glomerular Filtration Rate 58 mL/min (>60); Est Glom Filt Rate - Afr Amer 70 mL/min (>60); Estimated Creatinine Clearance 61.37 ml/min; Globulin 3.7 g/dL (2.2-4.2); Glucose 111 mg/dL (74-106); Potassium 3.7 mmol/L (3.5-5.1); Protein, Total 6.8 g/dL (6.4-8.2); Sodium Level 138 mmol/L (136-145)
[2020-12-19] MEDS: Aspirin E.C. 81 MG Tablet PO (07:04)
[2020-12-19] MEDS: oxyCODONE 5 MG Tablet PO ×3 (07:09→19:41)
[2020-12-19 07:10] LABS: Bedside Glucose 127 mg/dL (70-110)
[2020-12-19] MEDS: Ipratropium/Albuterol Sulfate 3 ML AMPUL.NEB INHALATION ×2 (07:44→13:56)
[2020-12-19] MEDS: Budesonide Respules 0.5 MG/2 ML AMPUL.NEB. INHALATION (07:44)
--- NOTE | 2020-12-19 09:02 | CON.PCM_ITS ---
Reason for Consult Date of Consultation: 12/19/20 Reason for Consultation: Chest pain History of Present Illness: The patient is a 55 year old M with a history of coronary artery bypass surgery with a left internal mammary artery to the left anterior descending artery and saphenous vein graft to the obtuse marginal branch. He has also had multiple stenting procedures. He also has a history of paroxysmal atrial fibrillation. He presents yesterday to the emergency room with chest discomfort which he says has been ongoing for a few hours. It starts in the back and then comes to the front it feels like a heaviness. There are no real relieving or exacerbating factors. He has had no dizziness or diaphoresisnear syncope or syncope. You do remember that he underwent a stress test in April of last year which was negative. He was admitted to the telemetry care unit with minimal troponin elevation. He is currently pain-free. [] Past Medical History Allergies/Adverse Reactions: Allergies seasonal Allergy (Uncoded 12/18/20 17:31) SOB Home Medications: Ambulatory Orders Medication Instructions Recorded Gabapentin [Neurontin] 1,200 mg PO TIDCM 12/07/15 duloxetine 60 mg capsule,delayed 60 mg PO DAILY 01/13/18 release ferrous sulfate 325 mg (65 mg 325 mg PO DAILY tab 11/26/18 iron) tablet Albuterol IH (ProAir) [Proair Hfa] 2 puff INHALATION Q6H PRN PRN 11/09/19 Albuterol Sulfate 1 dose IH Q4H PRN PRN 11/09/19 Nitroglycerin 0.4 mg SL PRN PRN 11/09/19 pantoprazole 40 mg tablet,delayed 40 mg PO DAILY 11/11/19 release pregabalin 100 mg capsule 100 mg PO TID cap 11/11/19 ropinirole 0.25 mg tablet 0.5 mg PO QHS 11/11/19 tiotropium 2.5 mcg-olodaterol 2.5 2 puff INHALATION DAILY 11/11/19 mcg/actuation mist for inhalation trazodone 150 mg tablet 150 mg PO QHS 11/11/19 Loratadine 10 mg PO DAILY 04/30/20 aspirin 81 mg tablet,delayed 81 mg PO DAILY 05/24/20 release atorvastatin 80 mg tablet 80 mg PO QHS #90 tab 05/24/20 isosorbide mononitrate 120 mg 120 mg PO DAILY #90 tab 05/24/20 tablet,extended release 24 hr lisinopril 10 mg tablet 10 mg PO DAILY #90 tab 05/24/20 Furosemide 40 mg PO BID #60 tab 11/16/20 Pen Needle, Diabetic [Pen Hudson] 1 ea MC DAILY #1 box 11/16/20 Budesonide/Formoterol 160/4.5 2 puff INHALATION BID 12/18/20 [Symbicort 160/4.5 Mcg Inhaler (SP)] Clopidogrel Bisulfate [Clopidogrel] 75 mg PO DAILY 12/18/20 Ezetimibe [Zetia] 10 mg PO DAILY 12/18/20 Insulin Glargine [Lantus SoloStar 20 units SC BREAKFAST 12/18/20 Pen] Metoprolol Succinate [Toprol Xl] 100 mg PO DAILY 12/18/20 Sotalol HCl [Sotalol] 120 mg PO BID 12/18/20 Tamsulosin HCl [Flomax] 0.4 mg PO DAILY@1730 12/18/20 Past Medical History (Chronic Problems): Chronic Problems (Last Updated 12/19/20 @ 12:[address] Hoang Aranda, DO) Essential hypertension (Chronic) Atherosclerosis of coronary artery of [place] heart without angina pectoris (Chronic) Chest pain (Chronic) KENNETH and COPD overlap syndrome (Chronic) Smoking greater than 40 pack years (Chronic) Chronic obstructive pulmonary disease (Chronic) PAD (peripheral artery disease) (Chronic) Hx of CABG (Chronic ~10/2005) CABG X 3 vessels, CARTER to LAD, SVG to OM1, SVG to OM3 11/03 Typical atrial flutter (Chronic) Other specified cardiac device in situ (Chronic) Presence of coronary angioplasty implant and graft (Chronic) February 2005 IVUS of LAD, May 2005 PTCA & ALBAN X 3 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 [place] Paroxysmal atrial fibrillation (Chronic) Diabetes mellitus (Chronic) Hyperlipidemia (Chronic) Nicotine abuse (Chronic) Surgical History: coronary bypass surgery, - - Left lower leg ORIF, status post 9 stents Psychiatric History: Depression - *Family History Maternal Family History: Family History (Last Reviewed 11/14/20 @ 05:[address] Jeferson Mcfarlane MD) Father CAD (coronary artery disease) COPD (chronic obstructive pulmonary disease) CHF (congestive heart failure) Mother COPD (chronic obstructive pulmonary disease) History Items: Cancer - Lung cancer, COPD Paternal Family History: Family History (Last Reviewed 11/14/20 @ 05:[address] Jeferson Mcfarlane MD) Father CAD (coronary artery disease) COPD (chronic obstructive pulmonary disease) CHF (congestive heart failure) Mother COPD (chronic obstructive pulmonary disease) History Items: COPD, Heart Disease Smoking Status: Current every day smoker Tobacco Use: Cigarettes Alcohol: None Review of Systems - Review of Systems General: Denies: Fever, Night Sweats, Fatigue HEENT: Denies: Vision Change Cardiovascular: Reports: Chest Discomfort, Chest Discomfort at Rest. Denies: Shortness of Breath, Orthopnea, PND, Peripheral Edema, Palpitations, Lightheadedness, Dizziness, Near Syncope, Syncope Respiratory: Denies: Cough, Sputum Production, Hemoptysis Gastrointestinal: Denies: Hematemesis, Hematochezia, Melena Genitourinary: Denies: Dysuria, Hematuria Muscoloskeletal: Denies: Myalgias Skin: Denies: Rash Neurological: Denies: Dizziness Psychiatric: Denies: Anxiety Endocrine: Denies: Unexplained Weight Loss Hematologic/ Lymphatic: Denies: Anemia Subjectve: Middle-aged man in no distress Objective: Vital Signs Temp Pulse Resp BP Pulse Ox 97.9 F 64 24 H 109/68 90 12/19/20 07:02 12/19/20 07:50 12/19/20 07:50 12/19/20 07:02 12/19/20 07:50 Oxygen Flow Rate (L/min) 2 Oxygen Delivery Method Nasal Cannula Weight: 190 lb 14.725 oz Body Mass Index (BMI) 27.8 Finger Stick Blood Glucose 148 Intake and Output for Last 24 Hours 12/17/20 12/18/20 12/19/20 23:59 23:59 23:59 Intake Total 400 / 400 Balance 400 / 400 General: Awake, Alert, Oriented x 3 HEENT: PERRL, EOMI, Sclera Non Icteric Neck: Supple, Good ROM, No Lymph Node Enlargement Lungs: Clear to auscultation Cardiovascular: Regular Rhythm, Normal S1, Normal S2, No Murmurs, No Rubs, No Gallops Vascular: No Carotid Bruits, Normal Femoral Pulses, Normal Radial Pulses, Normal Dorsalis Pedal Pulse, Normal Posterior Tibial Pulses Abdomen: Bowel Sounds Present, Soft, Non Tender, No HSM, No Organomegaly Extremities: No Cyanosis, No Clubbing, No edema Neurological: No Focal Motor or Sensory Deficit 12/18/20 17:10: WBC 12.9 H, RBC 5.16, Hgb 14.2, Hct 46.2, MCV 89.5, MCH 27.5, MCHC 30.7 L, Plt Count 298, MPV 10.5, Immature Gran % (Auto) 0.300, Neut % (Auto) 72.8 H, Lymph % (Auto) 14.9 L, Walker % (Auto) 8.7, Eos % (Auto) 2.7, Baso % (Auto) 0.6, Absolute Neuts (auto) 9.4 H, Nucleated RBC % 0 12/18/20 17:10: Sodium 140, Potassium 3.5, Chloride 106, Carbon Dioxide 28.0, Anion Gap 6, BUN 9, Creatinine 1.11, Est GFR (MDRD) Af Amer 88, Est GFR (MDRD) Non-Af 73, BUN/Creatinine Ratio 8.1 L, Glucose 145 H, Calcium 9.7, Troponin I 0.016 12/18/20 17:10: B-Natriuretic Peptide 76.5 12/18/20 17:10: Total Bilirubin 0.40, Direct Bilirubin 0.13 12/18/20 20:02: Troponin I 0.019 12/18/20 23:16: Troponin I 0.017 12/19/20 05:30: WBC 10.0, RBC 5.07, Hgb 13.8, Hct 45.6, MCV 89.9, MCH 27.2, MCHC 30.3 L, Plt Count 271, MPV 10.5, Immature Gran % (Auto) 0.400, Neut % (Auto) 65.0, Lymph % (Auto) 20.7, Walker % (Auto) 9.4, Eos % (Auto) 3.6, Baso % (Auto) 0.9, Absolute Neuts (auto) 6.5, Nucleated RBC % 0 12/19/20 05:30: Sodium 138, Potassium 3.7, Chloride 104, Carbon Dioxide 31.0, A nion Gap 3 L, BUN 14, Creatinine 1.36 H, Est GFR (MDRD) Af Amer 70, Est GFR (MDRD) Non-Af 58 L, BUN/Creatinine Ratio 10.3, Glucose 111 H, Calcium 9.0, Total Bilirubin 0.40 Rhythm: EKG: Normal sinus rhythm with T wave inversion noted anterior laterally. ECHO: Stress Test: Cardiac Cath: PCI: CT Surgery: Holter monitor: EPS: PPM: CXR: Chest CT Scan: Assessment/Plan 1. Chest pain-patient with known coronary artery disease * Patient presents with chest discomfort with some atypical features for angina. He does have known coronary artery disease. I would recommend at this time that we obtain a pharmacologic myocardial perfusion stress test for risk stratification due to the atypical nature. Depending on the findings further recommendations will then be made. * If there is any significant ischemia noted then we will proceed with a cardiac catheterization. * Addendum: Stress test demonstrated evidence of distal anterior wall ischemia. I would recommend that we proceed with a cardiac catheterization in a.m. Further recommendations will be made depending on the results of that test. 2. Paroxysmal atrial fibrillation * Patient appears to be maintaining sinus rhythm at this time and I will not recommend that we make any changes with regard to the above. * He will continue on the same medications. * 3. Hypertension * Patient has a history of known hypertensive heart disease. * His blood pressure appears to be fairly well controlled at this time and we will continue with aggressive medical therapy. * His echocardiogram demonstrated low normal ejection fraction. * Thank you for allowing me to participate in the care of your patient. Please don't hesitate to call if any issues arise.
--- NOTE | 2020-12-19 09:08 | ECHOCS_ITS ---
Reason For Study: Chest Pain Procedure This was a 2D Doppler, Color Flow transthoracic echocardiogram. Contrast injection was performed. Exam performed portable in patient room. Left Ventricle Normal LV size. The estimated ejection fraction is 50 %. Mild segmental systolic dysfunction (see wall motion). Infero-Basal: Hypokinetic. Posterior-Basal: Hypokinetic. Basal inferoseptal: Hypokinetic. The rest of the wall segments are normal. Right Ventricle Normal RV size. Normal systolic function. Atria The left atrium is moderately enlarged. The right atrium is mildly enlarged. Mitral Valve Normal mitral valve. Mild (1+) eccentric mitral valve insufficiency. Tricuspid Valve Normal tricuspid valve. Moderate (2+) tricuspid valve insufficiency. Pulmonary artery systolic pressure is 42 mmHg. Aortic Valve Trisinus/trileaflet aortic valve. Pulmonic Valve Normal pulmonic valve. Great Vessels Normal aortic root. The pulmonary artery is normal size. Normal inferior vena cava. Pericardium/Pleural No pericardial effusion. Medication Diluted definity 2ml given slow IV push to enhance endocardial definition. MMode/2D Measurements & Calculations LVIDd: 4.8 cm IVSd: 1.5 cm Ao root diam: 2.9 cm LVIDs: 3.6 cm LVPWd: 1.3 cm RVDd: 5.0 cm FS: 24.1 % LAV(MOD-bp): 84.7 ml LVAd ap4: 26.7 cm2 SV(MOD-sp4): 42.8 ml LAV(MOD-bp) Indexed: 41.9 ml/m2 EDV(MOD-sp4): 80.2 ml LAV(MOD-sp2): 68.3 ml EDV(sp4-el): 82.7 ml LAV(MOD-sp4): 87.9 ml LVAs ap4: 16.8 cm2 ESV(MOD-sp4): 37.4 ml ESV(sp4-el): 39.3 ml EF(MOD-sp4): 53.3 % EF(sp4-el): 52.5 % SV(sp4-el): 43.4 ml LA A4 area: 27.0 cm2 LA dimension(2D): 5.0 cm RA A4 area: 23.4 cm2 Doppler Measurements & Calculations MV E max lauren: 90.2 cm/sec Ao V2 max: 93.3 cm/sec LV V1 max: 78.3 cm/sec Ao max P.5 mmHg LV V1 max P.4 mmHg Ao V2 mean: 66.4 cm/sec Ao mean P.9 mmHg Ao V2 VTI: 17.8 cm PA V2 max: 62.1 cm/sec TR max lauren: 308.7 cm/sec TR max P.1 mmHg Interpretation Summary Normal LV size. The estimated ejection fraction is 50 %. Mild segmental systolic dysfunction (see wall motion). Mild (1+) eccentric mitral valve insufficiency. Moderate (2+) tricuspid valve insufficiency. The left atrium is moderately enlarged. The right atrium is mildly enlarged. Contrast injection was performed. Ordering Physician: Junito Swift Referring Physician: Blaze Louis Performed By: Sandee Luz, KEVEN, RVT
--- NOTE | 2020-12-19 12:03 | PCM.PN.HOSP ---
Reason for Visit: chest pain Subjective: Pain b/w shoulders persists. Vitals/I&O's: Vital Signs Temp Pulse Resp BP Pulse Ox 36.6 C 64 24 H 109/68 90 12/19/20 07:02 12/19/20 07:50 12/19/20 07:50 12/19/20 07:02 12/19/20 07:50 Oxygen Flow Rate (L/min) 2 Oxygen Delivery Method Nasal Cannula Weight: 86.6 kg Body Mass Index (BMI) 27.8 Finger Stick Blood Glucose 148 Intake and Output for Last 24 Hours 12/17/20 12/18/20 12/19/20 23:59 23:59 23:59 Intake Total 400 / 400 Balance 400 / 400 General: Alert, No apparent distress HEENT: Atraumatic, Normocephalic Oral: Moist Mucosa, No Gingival or Mucosal Lesions/ Ulcerations Neck: No Nodes, Thyroid Normal Size and Texture Lungs: Clear to auscultation, Normal air movement, No rhonchi, No wheeze Cardiovascular: Regular rate, Regular Rhythm, Normal S1, Normal S2 Abdomen: Bowel Sounds Present, Soft, Non Tender, Non-Distended Extremities: No edema, No Calf Tenderness Psych/Mental Status: Normal Affect, Appropriate Laboratory Results 12/18/20 17:10: WBC 12.9 H, RBC 5.16, Hgb 14.2, Hct 46.2, MCV 89.5, MCH 27.5, MCHC 30.7 L, RDW Std Deviation 52.7 H, RDW Coeff of Arleen 15.9 H, Plt Count 298, MPV 10.5, Immature Gran % (Auto) 0.300, Neut % (Auto) 72.8 H, Lymph % (Auto) 14.9 L, [place] % (Auto) 8.7, Eos % (Auto) 2.7, Baso % (Auto) 0.6, Absolute Neuts (auto) 9.4 H, Absolute Lymphs (auto) 1.91, Nucleated RBC % 0 12/18/20 17:10: Sodium 140, Potassium 3.5, Chloride 106, Carbon Dioxide 28.0, Anion Gap 6, BUN 9, Creatinine 1.11, Estim Creat Clear Calc 75.19, Est GFR (MDRD) Af Amer 88, Est GFR (MDRD) Non-Af 73, BUN/Creatinine Ratio 8.1 L, Glucose 145 H, Calcium 9.7, Troponin I 0.016 12/18/20 17:10: B-Natriuretic Peptide 76.5 12/18/20 17:10: Total Bilirubin 0.40, Direct Bilirubin 0.13, AST 10 L, ALT 16, Alkaline Phosphatase 108, Total Protein 7.1, Albumin 3.3, Globulin 3.8 12/18/20 20:02: Troponin I 0.019 12/18/20 22:37: POC Glucose 110 12/18/20 23:16: Troponin I 0.017 12/19/20 05:30: WBC 10.0, RBC 5.07, Hgb 13.8, Hct 45.6, MCV 89.9, MCH 27.2, MCHC 30.3 L, RDW Std Deviation 53.2 H, RDW Coeff of Arleen 16.1 H, Plt Count 271, MPV 10.5, Immature Gran % (Auto) 0.400, Neut % (Auto) 65.0, Lymph % (Auto) 20.7, [place] % (Auto) 9.4, Eos % (Auto) 3.6, Baso % (Auto) 0.9, Absolute Neuts (auto) 6.5, Absolute Lymphs (auto) 2.08, Nucleated RBC % 0 12/19/20 05:30: Sodium 138, Potassium 3.7, Chloride 104, Carbon Dioxide 31.0, Anion Gap 3 L, BUN 14, Creatinine 1.36 H, Estim Creat Clear Calc 61.37, Est GFR (MDRD) Af Amer 70, Est GFR (MDRD) Non-Af 58 L, BUN/Creatinine Ratio 10.3, Glucose 111 H, Calcium 9.0, Total Bilirubin 0.40, AST 8 L, ALT 14 L, Alkaline Phosphatase 101, Total Protein 6.8, Albumin 3.1 L, Globulin 3.7, Albumin/Globulin Ratio 0.8 L 12/19/20 07:07: POC Glucose 127 H Current Medications Acetaminophen (Acetaminophen 325 Mg Tablet) 650 mg PO Q6H PRN PRN PRN Reason: Pain Score 1-10/Temp > 100.7 F Last Admin: 12/19/20 05:42 Dose: 650 mg Documented by: Al Hydroxide/Mg Hydroxide (Mag Hydrox/Al Hydrox/Simeth 30 Ml Udc) 30 ml PO Q6H PRN PRN PRN Reason: Gastric Burning Albuterol Sulfate (Albuterol 2.5 Mg/3 Ml Vial.Neb.) 2.5 mg INHALATION Q4H PRN PRN PRN Reason: SOB &/OR WHEEZING Albuterol/Ipratropium (Ipratropium/Albuterol Sulfate 3 Ml Ampul.Neb) 3 ml INHALATION Q6HWA.RT [facility] Last Admin: 12/19/20 07:44 Dose: 3 ml Documented by: Aspirin (Aspirin E.C. 81 Mg Tablet) 81 mg PO DAILYCM [facility] Last Admin: 12/19/20 07:04 Dose: 81 mg Documented by: Atorvastatin Calcium (Atorvastatin Calcium 80 Mg Tablet) 80 mg PO QHS [facility] Last Admin: 12/18/20 21:02 Dose: 80 mg Documented by: Budesonide (Budesonide Respules 0.5 Mg/2 Ml Ampul.Neb.) 0.5 mg INHALATION Q12H.RT [facility] Last Admin: 12/19/20 07:44 Dose: 0.5 mg Documented by: Clopidogrel Bisulfate (Clopidogrel Bisulfate 75 Mg Tablet) 75 mg PO DAILY [facility] Duloxetine HCl (Duloxetine Hcl 60 Mg Capsule) 60 mg PO DAILY [facility] Ezetimibe (Ezetimibe 10 Mg Tablet) 10 mg PO DAILY [facility] Ferrous Sulfate (Ferrous Sulfate 325 Mg Tablet) 325 mg PO DAILY@1200 [facility] Furosemide (Furosemide 40 Mg Tablet) 40 mg PO BIDLX [facility] Gabapentin (Gabapentin 600 Mg Tablet) 1,200 mg PO TIDCM [facility] Last Admin: 12/19/20 10:00 Dose: Not Given Documented by: Heparin Sodium (Porcine) (Heparin Injection (Vial) 5,000 Unit/Ml Vial) 5,000 unit SC Q8 [facility] Last Admin: 12/19/20 05:35 Dose: 5,000 unit Documented by: Insulin Glargine (Insulin Glargine 100 Units/Ml Pen) 20 units SC BREAKFAST [facility] Last Admin: 12/19/20 08:01 Dose: Not Given Documented by: Isosorbide Mononitrate (Isosorbide Mononitrate 120 Mg Tablet) 120 mg PO DAILY [facility] Lisinopril (Lisinopril 10 Mg Tablet) 10 mg PO DAILY [facility] Loratadine (Loratadine 10 Mg Tablet) 10 mg PO DAILY [facility] Metoprolol Succinate (Metoprolol(Xl)Succ 100 Mg Tablet) 100 mg PO DAILY [facility] Nicotine (Nicotine 14 Mg Patch) 14 mg TD DAILY [facility] Nicotine Polacrilex (Nicotine Polacrilex 2 Mg Gum) 2 mg PO Q2H PRN PRN PRN Reason: Nicotine Craving Nitroglycerin (Nitroglycerin (Inpatient Use) 0.4 Mg Tab.Subl) 0.4 mg SUBLINGUAL Q5M PRN PRN Reason: chest pain Ondansetron HCl (Ondansetron 4 Mg/2 Ml Vial) 4 mg IV Q8H PRN PRN PRN Reason: NAUSEA/VOMITING Oxycodone HCl (Oxycodone 5 Mg Tablet) 5 mg PO Q4H PRN PRN PRN Reason: Pain Score 4-10 Last Admin: 12/19/20 07:09 Dose: 5 mg Documented by: Pantoprazole Sodium (Pantoprazole Sodium 40 Mg Tablet) 40 mg PO DAILY [facility] Pramipexole Dihydrochloride (Pramipexole Di-Hcl 0.25 Mg Tablet) 0.25 mg PO QHS [facility] Last Admin: 12/18/20 21:02 Dose: 0.25 mg Documented by: Pregabalin (Pregabalin 50 Mg Capsule) 100 mg PO TID [facility] Last Admin: 12/19/20 05:37 Dose: 100 mg Documented by: Sodium Chloride (0.9% Saline Lock 10 Ml Syringe) 10 - 40 ml IV UD PRN PRN Reason: SALINE FLUSH Sotalol HCl (Sotalol Hydrochloride 80 Mg Tablet) 120 mg PO BID [facility] Last Admin: 12/18/20 21:05 Dose: 120 mg Documented by: Tamsulosin HCl (Tamsulosin Hcl 0.4 Mg Capsule) 0.4 mg PO DAILY@1730 [facility] Trazodone HCl (Trazodone 50 Mg Tablet) 150 mg PO QHS [facility] Last Admin: 12/18/20 21:02 Dose: 150 mg Documented by: Medical Necessity - Tobacco Use Smoking Status: Current every day smoker Tobacco Use: Cigarettes Assessment/Plan All Active Problems (Last Updated 12/13/20 @ 17:17 by Dorina Huff) Chest pain (Acute) 1. chest pain: troponins negative. stress ordered. echo shows an EF of 50%, 55% on 03/29/2019. cardiology following. 2. chronic afib: on metoprolol and sotalol. no OAC given h/o of rectal bleeding. 3. DM2: stable. on glargine OBSV E&M: 21674 Subsequent observation care L2
--- NOTE | 2020-12-19 12:57 | STRESSREP ---
Stress Test Report Pharmacologic myocardial perfusion stress test. 55-year-old man with a history of coronary artery disease status post coronary bypass surgery patient presents with recurrent chest pain. Stress protocol: Resting EKG demonstrates normal sinus rhythm with a rate of 64 bpm normal intervals are noted resting blood pressure is 148/62 mmHg. 0.4 mg of regadenoson was infused per usual protocol followed by rapid intravenous saline flush injection continuous EKG monitoring was performed. Patient maintained sinus rhythm throughout the recording the maximum heart rate was 72 bpm. No EKG changes were noted to suggest abnormal flow reserve. Myocardial perfusion protocol. 12.0 mCi of technetium 99m sestamibi was injected at rest. 0.4 mg of regadenoson was infused per usual protocol. At peak infusion 34.9 mCi of technetium 99m sestamibi was injected stress images were obtained stress and rest images were reconstructed and compared in the short axis vertical long horizontal long axis. Gated images were also obtained Perfusion SPECT analysis: Review of the stress images demonstrate normal uptake of tracer noted in all areas of the myocardium except for the distal anterior wall which has reduced perfusion on the stress images. The resting images demonstrate mild improvement in this area. The other hernández appear to be well perfused. The above is suggestive of a mild amount of distal anterior ischemia present. Gated SPECT analysis: The gated ejection fraction is noted to be 49%. Conclusion: Abnormal pharmacologic myocardial perfusion stress test with evidence of distal anterior wall ischemia. Preserved ejection fraction.
[2020-12-19] MEDS: Loratadine 10 MG Tablet PO (12:59)
[2020-12-19] MEDS: Ferrous Sulfate 325 MG Tablet PO (12:59)
[2020-12-19] MEDS: DULoxetine Hcl 60 MG Capsule PO (12:59)
[2020-12-19] MEDS: Gabapentin 600 MG Tablet 1200 MG PO ×2 (12:59→16:57)
[2020-12-19] MEDS: Pantoprazole Sodium 40 MG Tablet PO (12:59)
[2020-12-19] MEDS: Clopidogrel Bisulfate 75 MG Tablet PO (12:59)
--- NOTE | 2020-12-19 13:18 | CASEMGMT ---
According to the [facility] community plan website, the following are in-network tertiary facilities: [facility], [facility], [place], [facility], [facility], [facility], [facility], [facility], and . Enrique HERNANDEZ CM
[2020-12-19] MEDS: Sotalol Hydrochloride 80 MG Tablet 120 MG PO (13:31)
[2020-12-19] MEDS: Metoprolol(XL)Succ 100 MG Tablet PO (13:32)
[2020-12-19] MEDS: Furosemide 40 MG Tablet PO ×2 (13:32→16:58)
[2020-12-19] MEDS: Lisinopril 10 MG Tablet PO (13:32)
[2020-12-19] MEDS: Ezetimibe 10 MG Tablet PO (13:33)
--- NOTE | 2020-12-19 14:21 | CHAPLAIN ---
Type of Pastoral Visit _x__ Initial Visit ___ Follow-up Visit ___ On-call Visit ___ General Patient Visit ___ Spiritual Assessment ___ Family Conference ___ Bereavement ___ Rapid Response ___ Code Blue ___ Other (describe below) Pastoral Care Referral From _x__ Patient ___ Family ___ Nurse ___ Physician ___ Scrap Drop Crane Operator ___ Crown Blocker ___ Other (describe below) Sacrament/Intervention _x__ Active listening ___ Anointing ___ Judaism ___ Bereavement ___ Communion _x__ Barbara exploration ___ _x__ Life review _x__ Prayer ___ Reconciliation ___ Sacrament of Sick _x__ Supportive presence ___ Wedding ___ Other (describe below) Pastoral Comments patient very talkative and able to give long overview of life, situation, and spiritual beliefs; pt has family issues that weigh down on him mentally according to his report; pt has strong beliefs and says he tries to show this to his family; pt has had many physical issues and how can one person have so many things go wrong, but I know others have it worse; pt is welcoming of spiritual conversation and of prayer support; pt to have a heart cath tomorrow
[2020-12-19] MEDS: Tamsulosin HCl 0.4 MG Capsule PO (16:57)
[2020-12-19] MEDS: traZODone 50 MG Tablet 150 MG PO (21:12)
[2020-12-19] MEDS: Pramipexole Di-HCl 0.25 MG Tablet PO (21:13)
[2020-12-19] MEDS: Atorvastatin Calcium 80 MG Tablet PO (21:13)
[2020-12-19 21:31] LABS: Bedside Glucose 177 mg/dL (70-110)
[2020-12-20] VITALS (16 sets, daily range): BP systolic 94–119; BP diastolic 52–72; PULSE 63–88; RESP 14–18; TEMP 36.2–36.6; O2SAT 92–97
--- NOTE | 2020-12-20 00:41 | NURSING ---
Handoff received from Carol HERNANDEZ. This RN is assuming care of pt. at this time.
--- NOTE | 2020-12-20 01:24 | PCS.PANDOC ---
PANDEMIC DOCUMENTATION INITIATED: Date: 12/18/20 Time: 19:20
[2020-12-20] MEDS: oxyCODONE 5 MG Tablet PO ×2 (03:21→13:42)
--- NOTE | 2020-12-20 05:00 | EKG12_ITS ---
Test Reason : AM Blood Pressure : / mmHG Vent. Rate : 064 BPM Atrial Rate : 064 BPM P-R Int : 170 ms QRS Dur : 086 ms QT Int : 488 ms P-R-T Axes : 070 051 105 degrees QTc Int : 503 ms Sinus rhythm with Premature atrial complexes T wave abnormality, consider lateral ischemia Prolonged QT Abnormal ECG When compared with ECG of 18-DEC-2020 19:56, MANUAL COMPARISON REQUIRED, DATA IS UNCONFIRMED Confirmed by JHON LOMELI, SMITA ([id number]), tape editor EDITH MENARD ([id number]) on 12/26/2020 11:20:00 AM Referred By: ANDREA Confirmed By:SMITA FERREIRA MD
[2020-12-20] MEDS: Aspirin E.C. 81 MG Tablet PO ×2 (06:24)
[2020-12-20] MEDS: Clopidogrel Bisulfate 75 MG Tablet PO (06:24)
[2020-12-20] MEDS: Pregabalin 50 MG Capsule 100 MG PO ×2 (06:24→13:34)
[2020-12-20] MEDS: Sotalol Hydrochloride 80 MG Tablet 120 MG PO (06:24)
[2020-12-20] MEDS: Lisinopril 10 MG Tablet PO (06:25)
[2020-12-20] MEDS: Metoprolol(XL)Succ 100 MG Tablet PO (06:25)
[2020-12-20] MEDS: Budesonide Respules 0.5 MG/2 ML AMPUL.NEB. INHALATION (07:01)
[2020-12-20] MEDS: Ipratropium/Albuterol Sulfate 3 ML AMPUL.NEB INHALATION (07:01)
--- NOTE | 2020-12-20 07:20 | NURSING ---
Report called to matlab developer to Vishal HERNANDEZ.
[2020-12-20] MEDS: 0.9% Normal Saline 1,000 ML 15 ML IV (07:23)
[2020-12-20] MEDS: 0.9% Saline Lock 10 ML Syringe IV ×2 (07:24→13:49)
--- NOTE | 2020-12-20 08:31 | PN.CARD_ITS ---
Subjectve: Patient seen and evaluated. Appears to be doing well. Objective: Vital Signs Temp Pulse Resp BP Pulse Ox 97.9 F 83 18 119/69 96 12/20/20 06:21 12/20/20 07:03 12/20/20 07:03 12/20/20 06:25 12/20/20 06:21 Oxygen Flow Rate (L/min) 2.5 Oxygen Delivery Method Nasal Cannula Weight: 194 lb 10.691 oz Body Mass Index (BMI) 27.8 Finger Stick Blood Glucose 148 Intake and Output for Last 24 Hours 12/18/20 12/19/20 12/20/20 23:59 23:59 23:59 Intake Total 1300 / 1300 60 / 60 Balance 1300 / 1300 60 / 60 General: Awake, Alert, Oriented x 3 HEENT: PERRL, EOMI, Sclera Non Icteric Neck: Supple, Good ROM, No Lymph Node Enlargement Lungs: Clear to auscultation Cardiovascular: Regular Rhythm, Normal S1, Normal S2, No Murmurs, No Rubs, No Gallops Rhythm: EKG: ECHO: Stress Test: Cardiac Cath: PCI: CT Surgery: Holter monitor: EPS: PPM: CXR: Chest CT Scan: Medical Necessity - Tobacco Use Smoking Status: Current every day smoker Tobacco Use: Cigarettes Assessment/Plan 1. Chest pain-patient with known coronary artery disease * Patient presents with chest discomfort with some atypical features for angina. He does have known coronary artery disease. * He underwent a cardiac catheterization which demonstrated the following: Normal left main coronary artery. Left anterior descending artery with mild disease. Left circumflex artery which appears to be totally occluded. Ramus intermedius with mild disease. Dominant right coronary artery previously stented with proximal in-stent 40% stenosis Acute marginal branch with severe disease in a small vessel. Based on the above angiographic findings I would recommend continued medical disease. His medical regimen appears to be adequate. 2. Paroxysmal atrial fibrillation * Patient appears to be maintaining sinus rhythm at this time and I will not recommend that we make any changes with regard to the above. * He will continue on the same medications. * 3. Hypertension * Patient has a history of known hypertensive heart disease. * His blood pressure appears to be fairly well controlled at this time and we will continue with aggressive medical therapy. * His echocardiogram demonstrated low normal ejection fraction. * Thank you for allowing me to participate in the care of your patient. Please don't hesitate to call if any issues arise.
--- NOTE | 2020-12-20 08:46 | CL.D_ITS ---
Patient Name: SAIRA STEVENS Study Date: 12/20/2020 Performing: Junito Swift MD Ht: 68.89 inches 175 cm : 1965 Wt: 194.01 lbs 88 kg Age: 55 Gender: male BSA: 2.04 PROCEDURE(S) PERFORMED [id number] CLINICAL PROFILE AND INDICATIONS Indications: Suspected CAD Heart Failure: None Stress/Imaging Date: 12/19/20ress Test with SPECT MPI: Positive Intermediate Risk CAD Presentations: Unstable angina. CONCLUSIONS Mild active CAD with previously placed stent in the right coronary artery which is noted to be patent with 40% in-stent stenosis. The LAD is patent the circumflex artery is previously occluded. RECOMMENDATIONS Medical therapy DESCRIPTION OF PROCEDURE The patient arrived to the procedure lab. The risks and benefits of the procedure as well as a full d escription of our services here and current unavailability of surgical backup were fully explained to the patient and/or their significant other prior to the catheterization. The Timeout was completed, verifying the correct patient and procedure. The patient's procedural site was prepped and draped in the usual fashion. Local anesthetic was given subcutaneously to right radial region with Lidocaine 2% . Using a modified Seldinger technique, arterial access was obtained via the right ulnar a 6Fr sheat h was inserted. Left Coronary Artery selective angiography was performed in multiple views using a 5 Fr. 4.0 [place] catheter. Right Coronary Artery selective angiography was then performed in multiple v iews using a 5 Fr. 4.0 [place] catheter.The arterial sheath was pulled and a TR Band was applied for he mostasis CORONARY ANGIOGRAPHY DOMINANCE: Right Dominant LEFT HEART ASSESSMENT Left Ventricular Ejection Fraction: by Echo 50 % Normal LV wall motion Normal Left Ventricular systolic function Coronary bypass grafts appear to be occluded from the previous catheterizations.. LEFT MAIN: Angiographically normal LEFT ANTERIOR DESCENDING ARTERY: Mild luminal irregularities less than 30% CIRCUMFLEX ARTERY: OSTIAL CIRC: is occluded RAMUS: Mild luminal irregularities less than 30% RIGHT CORONARY ARTERY: Previously placed stent has an instent 40 % restenosis COMPLICATIONS No Complications PROCEDURE MEDICATIONS Fentanyl 50 mcg IV Versed 1 mg IV Oxygen: 2 L/min via nasal cannula SUMMARY OF HEMODYNAMIC DATA Time AIR REST ECG 07:39:19 AO 110/77 (92) SA 08:19:10 Signed By Junito Swift MD On 12/20/2020 08:45:19 Junito Swift MD
[2020-12-20] MEDS: 0.9% Normal Saline 1,000 ML 100 ML IV (09:02)
[2020-12-20] MEDS: Pantoprazole Sodium 40 MG Tablet PO (10:15)
[2020-12-20] MEDS: DULoxetine Hcl 60 MG Capsule PO (10:15)
[2020-12-20] MEDS: Loratadine 10 MG Tablet PO (10:15)
[2020-12-20] MEDS: Furosemide 40 MG Tablet PO (10:15)
[2020-12-20] MEDS: Ezetimibe 10 MG Tablet PO (10:15)
[2020-12-20 10:26] LABS: Bedside Glucose 124 mg/dL (70-110)
[2020-12-20] MEDS: Ferrous Sulfate 325 MG Tablet PO (11:24)
[2020-12-20] MEDS: Gabapentin 600 MG Tablet 1200 MG PO (11:24)
[2020-12-20] MEDS: Heparin Injection (Vial) 5,000 UNIT/ML VIAL 5000 UNIT SC (13:35)
[2020-12-20] MEDS: Acetaminophen 325 MG Tablet 650 MG PO (13:43)
--- NOTE | 2020-12-20 13:43 | DCINST_ITS ---
- Discharge Diagnoses Current Active Problems: Current Active and Chronic Problems (Last Updated 12/19/20 @ 12:[address] Hoang Aranda, DO) Essential hypertension (Chronic) Atherosclerosis of coronary artery of [place] heart without angina pectoris (Chronic) Chest pain (Chronic) KENNETH and COPD overlap syndrome (Chronic) Smoking greater than 40 pack years (Chronic) Chronic obstructive pulmonary disease (Chronic) Paroxysmal atrial fibrillation (Chronic) Diabetes mellitus (Chronic) Hyperlipidemia (Chronic) Nicotine abuse (Chronic) You will use the following diet at home:: Cardiac Discharge Activity: Return to Normal Activity, No Restrictions Call your doctor if you observe: Shortness of breath, Chest pain Allergies/Adverse Reactions: Allergies seasonal Allergy (Uncoded 12/18/20 17:31) SOB Medications to take at Discharge Gabapentin [Neurontin] 1,200 mg PO TIDCM 12/07/15 duloxetine 60 mg capsule,delayed release 60 mg PO DAILY 01/13/18 ferrous sulfate 325 mg (65 mg iron) tablet 325 mg PO DAILY tab 11/26/18 Albuterol IH (ProAir) [Proair Hfa] 2 puff INHALATION Q6H PRN PRN 11/09/19 Albuterol Sulfate 1 dose IH Q4H PRN PRN 11/09/19 Nitroglycerin 0.4 mg SL PRN PRN 11/09/19 pantoprazole 40 mg tablet,delayed release 40 mg PO DAILY 11/11/19 pregabalin 100 mg capsule 100 mg PO TID cap 11/11/19 ropinirole 0.25 mg tablet 0.5 mg PO QHS 11/11/19 tiotropium 2.5 mcg-olodaterol 2.5 mcg/actuation mist for inhalation 2 puff INHALATION DAILY 11/11/19 trazodone 150 mg tablet 150 mg PO QHS 11/11/19 Loratadine 10 mg PO DAILY 04/30/20 aspirin 81 mg tablet,delayed release 81 mg PO DAILY 05/24/20 atorvastatin 80 mg tablet 80 mg PO QHS #90 tab 05/24/20 isosorbide mononitrate 120 mg tablet,extended release 24 hr 120 mg PO DAILY #90 tab 05/24/20 lisinopril 10 mg tablet 10 mg PO DAILY #90 tab 05/24/20 Furosemide 40 mg PO BID #60 tab 11/16/20 Pen Needle, Diabetic [Pen [place]] 1 ea MC DAILY #1 box 11/16/20 Budesonide/Formoterol 160/4.5 [Symbicort 160/4.5 Mcg Inhaler (SP)] 2 puff INHALATION BID 12/18/20 Clopidogrel Bisulfate [Clopidogrel] 75 mg PO DAILY 12/18/20 Ezetimibe [Zetia] 10 mg PO DAILY 12/18/20 Insulin Glargine [Lantus SoloStar Pen] 20 units SC BREAKFAST 12/18/20 Metoprolol Succinate [Toprol Xl] 100 mg PO DAILY 12/18/20 Sotalol HCl [Sotalol] 120 mg PO BID 12/18/20 Tamsulosin HCl [Flomax] 0.4 mg PO DAILY@1730 12/18/20 Primary Care Physician: Blaze Louis MD [Primary Care Provider] - Within 2 Weeks Test Results: Test results from this visit will be discussed in further detail at your follow- up appointment, if applicable. Please Follow Up With: Junito Swift MD When: 01/29/2021, already scheduled Proposed Discharge Date: 12/20/20
--- NOTE | 2020-12-20 13:45 | PCM.DC.SUM ---
Discharge Date and Diagnosis Date of Admission: 12/18/20 Date of Discharge: 12/20/20 - Primary Discharge Diagnosis Acute Problems: chest pain - Secondary Discharge Diagnosis Chronic Problems: Chronic Problems (Last Updated 12/19/20 @ 12:[address] Hoang Aranda, ) Essential hypertension (Chronic) Atherosclerosis of coronary artery of [place] heart without angina pectoris (Chronic) Chest pain (Chronic) KENNETH and COPD overlap syndrome (Chronic) Smoking greater than 40 pack years (Chronic) Chronic obstructive pulmonary disease (Chronic) PAD (peripheral artery disease) (Chronic) Hx of CABG (Chronic ~10/2005) CABG X 3 vessels, CARTER to LAD, SVG to OM1, SVG to OM3 11/03 Typical atrial flutter (Chronic) Other specified cardiac device in situ (Chronic) Presence of coronary angioplasty implant and graft (Chronic) February 2005 IVUS of LAD, May 2005 PTCA & ALBAN 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. [place] Paroxysmal atrial fibrillation (Chronic) Diabetes mellitus (Chronic) Hyperlipidemia (Chronic) Nicotine abuse (Chronic) Hospital Course and Treatment Imaging Results: Clinical Impression(s) from Imaging Studies Chest X-Ray 12/18/20 17:20 IMPRESSION: Mild bibasilar interstitial prominence. Electronically Signed: Cruz Rodríguez DO at 17:51 EST Tel [phone], Service support , jayleen cardiology Operations: None Procedures: None Summary of Care Provided: The patient is a 55 year old Yunior Benitez with 2-day history of chest pain. Radiates to his back and worse with exertion. Given his history of prior stress test, cardiology was consulted who ordered a stress test that was abnormal. Patient underwent a left heart catheterization today that showed mild active coronary artery disease and the previous placed stent in the right coronary artery with 40% in-stent stenosis. Patient is otherwise doing well and will be discharged home in stable condition. Patient continue with his home medications. Patient has a follow-up appointment with Dr. Swift on January 29. [] - Physical Exam Vitals/I&O's: Vital Signs Temp Pulse Resp BP Pulse Ox 36.2 C L 64 16 98/59 L 95 12/20/20 12:00 12/20/20 12:00 12/20/20 12:00 12/20/20 12:00 12/20/20 12:00 Oxygen Flow Rate (L/min) 2 Oxygen Delivery Method Nasal Cannula Weight: 88.3 kg Body Mass Index (BMI) 27.8 Finger Stick Blood Glucose 148 Intake and Output for Last 24 Hours 12/18/20 12/19/20 12/20/20 23:59 23:59 23:59 Intake Total 1300 / 1300 84.75 / 84.75 Balance 1300 / 1300 84.75 / 84.75 General: Alert, No apparent distress HEENT: Atraumatic, Normocephalic Laboratory Results 12/19/20 21:20: POC Glucose 177 H 12/20/20 10:04: POC Glucose 124 H Current Medications Acetaminophen (Acetaminophen 325 Mg Tablet) 650 mg PO Q6H PRN PRN PRN Reason: Pain Score 1-10/Temp > 100.7 F Last Admin: 12/19/20 05:42 Dose: 650 mg Documented by: Al Hydroxide/Mg Hydroxide (Mag Hydrox/Al Hydrox/Simeth 30 Ml Udc) 30 ml PO Q6H PRN PRN PRN Reason: Gastric Burning Albuterol Sulfate (Albuterol 2.5 Mg/3 Ml Vial.Neb.) 2.5 mg INHALATION Q4H PRN PRN PRN Reason: SOB &/OR WHEEZING Albuterol/Ipratropium (Ipratropium/Albuterol Sulfate 3 Ml Ampul.Neb) 3 ml INHALATION Q6HWA.RT [facility] Last Admin: 12/20/20 07:01 Dose: 3 ml Documented by: Aspirin (Aspirin E.C. 81 Mg Tablet) [facility] Last Admin: 12/20/20 06:24 Dose: 81 mg Documented by: Atorvastatin Calcium (Atorvastatin Calcium 80 Mg Tablet) 80 mg PO QHS [facility] Last Admin: 12/19/20 21:13 Dose: 80 mg Documented by: Budesonide (Budesonide Respules 0.5 Mg/2 Ml Ampul.Neb.) 0.5 mg INHALATION Q12H.RT [facility] Last Admin: 12/20/20 07:01 Dose: 0.5 mg Documented by: Clopidogrel Bisulfate (Clopidogrel Bisulfate 75 Mg Tablet) 75 mg PO DAILY [facility] Last Admin: 12/20/20 06:24 Dose: 75 mg Documented by: Duloxetine HCl (Duloxetine Hcl 60 Mg Capsule) 60 mg PO DAILY [facility] Last Admin: 12/20/20 10:15 Dose: 60 mg Documented by: Ezetimibe (Ezetimibe 10 Mg Tablet) 10 mg PO DAILY [facility] Last Admin: 12/20/20 10:15 Dose: 10 mg Documented by: Ferrous Sulfate (Ferrous Sulfate 325 Mg Tablet) 325 mg PO DAILY@1200 [facility] Last Admin: 12/20/20 11:24 Dose: 325 mg Documented by: Furosemide (Furosemide 40 Mg Tablet) 40 mg PO BIDLX [facility] Last Admin: 12/20/20 10:15 Dose: 40 mg Documented by: Gabapentin (Gabapentin 600 Mg Tablet) 1,200 mg PO TIDCM [facility] Last Admin: 12/20/20 11:24 Dose: 1,200 mg Documented by: Heparin Sodium (Porcine) (Heparin Injection (Vial) 5,000 Unit/Ml Vial) 5,000 unit SC Q8 [facility] Last Admin: 12/19/20 21:25 Dose: Not Given Documented by: Sodium Chloride () 1,000 mls @ 0 mls/hr IV .Q0M [facility] Last Infusion: 12/20/20 09:02 Dose: Infused Documented by: Sodium Chloride () 1,000 mls @ 100 mls/hr IV .Q10H [facility] Last Admin: 12/20/20 09:02 Dose: 100 mls/hr Documented by: Insulin Glargine (Insulin Glargine 100 Units/Ml Pen) 20 units SC BREAKFAST [facility] Last Admin: 12/20/20 10:12 Dose: 20 units Documented by: Isosorbide Mononitrate (Isosorbide Mononitrate 120 Mg Tablet) 120 mg PO DAILY [facility] Last Admin: 12/20/20 06:25 Dose: 120 mg Documented by: Lisinopril (Lisinopril 10 Mg Tablet) 10 mg PO DAILY [facility] Last Admin: 12/20/20 06:25 Dose: 10 mg Documented by: Loratadine (Loratadine 10 Mg Tablet) 10 mg PO DAILY [facility] Last Admin: 12/20/20 10:15 Dose: 10 mg Documented by: Metoprolol Succinate (Metoprolol(Xl)Succ 100 Mg Tablet) 100 mg PO DAILY [facility] Last Admin: 12/20/20 06:25 Dose: 100 mg Documented by: Nicotine (Nicotine 14 Mg Patch) 14 mg TD DAILY [facility] Last Admin: 12/20/20 10:15 Dose: Not Given Documented by: Nicotine Polacrilex (Nicotine Polacrilex 2 Mg Gum) 2 mg PO Q2H PRN PRN PRN Reason: Nicotine Craving Nitroglycerin (Nitroglycerin (Inpatient Use) 0.4 Mg Tab.Subl) 0.4 mg SUBLINGUAL Q5M PRN PRN Reason: chest pain Ondansetron HCl (Ondansetron 4 Mg/2 Ml Vial) 4 mg IV Q8H PRN PRN PRN Reason: NAUSEA/VOMITING Oxycodone HCl (Oxycodone 5 Mg Tablet) 5 mg PO Q4H PRN PRN PRN Reason: Pain Score 4-10 Last Admin: 12/20/20 03:21 Dose: 5 mg Documented by: Pantoprazole Sodium (Pantoprazole Sodium 40 Mg Tablet) 40 mg PO DAILY [facility] Last Admin: 12/20/20 10:15 Dose: 40 mg Documented by: Pramipexole Dihydrochloride (Pramipexole Di-Hcl 0.25 Mg Tablet) 0.25 mg PO QHS [facility] Last Admin: 12/19/20 21:13 Dose: 0.25 mg Documented by: Pregabalin (Pregabalin 50 Mg Capsule) 100 mg PO TID [facility] Last Admin: 12/20/20 06:24 Dose: 100 mg Documented by: Sodium Chloride (0.9% Saline Lock 10 Ml Syringe) 10 - 40 ml IV UD PRN PRN Reason: SALINE FLUSH Last Admin: 12/20/20 07:24 Dose: 10 ml Documented by: Sotalol HCl (Sotalol Hydrochloride 80 Mg Tablet) 120 mg PO BID [facility] Last Admin: 12/20/20 06:24 Dose: 120 mg Documented by: Tamsulosin HCl (Tamsulosin Hcl 0.4 Mg Capsule) 0.4 mg PO DAILY@1730 [facility] Last Admin: 12/19/20 16:57 Dose: 0.4 mg Documented by: Trazodone HCl (Trazodone 50 Mg Tablet) 150 mg PO QHS [facility] Last Admin: 12/19/20 21:12 Dose: 150 mg Documented by: Discharge Diet: No Restrictions Discharge Activity: Return to Normal Activity, No Restrictions Call your doctor if you observe: Shortness of breath, Chest pain Home Medications: Medications to take at Discharge Gabapentin [Neurontin] 1,200 mg PO TIDCM 12/07/15 duloxetine 60 mg capsule,delayed release 60 mg PO DAILY 01/13/18 ferrous sulfate 325 mg (65 mg iron) tablet 325 mg PO DAILY tab 11/26/18 Albuterol IH (ProAir) [Proair Hfa] 2 puff INHALATION Q6H PRN PRN 11/09/19 Albuterol Sulfate 1 dose IH Q4H PRN PRN 11/09/19 Nitroglycerin 0.4 mg SL PRN PRN 11/09/19 pantoprazole 40 mg tablet,delayed release 40 mg PO DAILY 11/11/19 pregabalin 100 mg capsule 100 mg PO TID cap 11/11/19 ropinirole 0.25 mg tablet 0.5 mg PO QHS 11/11/19 tiotropium 2.5 mcg-olodaterol 2.5 mcg/actuation mist for inhalation 2 puff INHALATION DAILY 11/11/19 trazodone 150 mg tablet 150 mg PO QHS 11/11/19 Loratadine 10 mg PO DAILY 04/30/20 aspirin 81 mg tablet,delayed release 81 mg PO DAILY 05/24/20 atorvastatin 80 mg tablet 80 mg PO QHS #90 tab 05/24/20 isosorbide mononitrate 120 mg tablet,extended release 24 hr 120 mg PO DAILY #90 tab 05/24/20 lisinopril 10 mg tablet 10 mg PO DAILY #90 tab 05/24/20 Furosemide 40 mg PO BID #60 tab 11/16/20 Pen Needle, Diabetic [Pen [place]] 1 ea MC DAILY #1 box 11/16/20 Budesonide/Formoterol 160/4.5 [Symbicort 160/4.5 Mcg Inhaler (SP)] 2 puff INHALATION BID 12/18/20 Clopidogrel Bisulfate [Clopidogrel] 75 mg PO DAILY 12/18/20 Ezetimibe [Zetia] 10 mg PO DAILY 12/18/20 Insulin Glargine [Lantus SoloStar Pen] 20 units SC BREAKFAST 12/18/20 Metoprolol Succinate [Toprol Xl] 100 mg PO DAILY 12/18/20 Sotalol HCl [Sotalol] 120 mg PO BID 12/18/20 Tamsulosin HCl [Flomax] 0.4 mg PO DAILY@1730 12/18/20 Primary Care Physician: Blaze Louis MD [Primary Care Provider] - Within 2 Weeks Please Follow Up With: Junito Swift MD When: 01/29/2021, already scheduled Disposition: Home Minutes spent on discharge:: 24 Patient Condition:: Fair Medical Necessity - Tobacco Use Smoking Status: Current every day smoker Tobacco Use: Cigarettes Meaningful Use Info Meaningful Use Diagnoses (Choose all that apply): None applicable OBSV E&M: 12964 Observation care discharge
== END 2020-12-20 13:44 | disposition home or self-care (01) ==
LOC: ED 18:31 → PCU 18:33
PROVIDERS: Admitting Provider Internal Medicine; Emergency Provider Emergency Medicine; PCP Family Medicine
DX: I25.110 Atherosclerotic heart disease of native coronary artery with unstable angina pectoris (principal); T82.855A Stenosis of coronary artery stent, initial encounter; Y71.3 Surgical instruments, materials and cardiovascular devices (including sutures) associated with adverse incidents; I11.0 Hypertensive heart disease with heart failure; I50.9 Heart failure, unspecified; E11.51 Type 2 diabetes mellitus with diabetic peripheral angiopathy without gangrene; E11.42 Type 2 diabetes mellitus with diabetic polyneuropathy; F17.210 Nicotine dependence, cigarettes, uncomplicated; J44.9 Chronic obstructive pulmonary disease, unspecified; G47.33 Obstructive sleep apnea (adult) (pediatric); I48.0 Paroxysmal atrial fibrillation; E78.5 Hyperlipidemia, unspecified; Z95.1 Presence of aortocoronary bypass graft; Z82.49 Family history of ischemic heart disease and other diseases of the circulatory system; Z79.899 Other long term (current) drug therapy; Z79.82 Long term (current) use of aspirin; Z79.4 Long term (current) use of insulin; Z79.02 Long term (current) use of antithrombotics/antiplatelets; Z79.51 Long term (current) use of inhaled steroids; D50.9 Iron deficiency anemia, unspecified
CPT/HCPCS: 36415; 71045; 78452; 80048; 80053; 80076; 82962; 83880; 84484; 85025; 93005; 93017; 93306; 93454; 94640; 96361; 96372; 96374; 96375; 99152; 99153; 99218; 99251; 99285; 99406; A9500; J7030; Q9957; Q9967; A4216; C1769; C1894; C8929; G0378; G0463; J2405; J2785

== ENCOUNTER → 2021-01-25 13:27 | Outpatient (CLI) | payer MEDICAID, SELFPAY ==
[2021-01-21 09:54] VITALS: BMI 29.4
--- NOTE | 2021-01-25 13:30 | CT_ITS ---
STUDY: LOW DOSE CT LUNG CANCER SCREENING REASON FOR EXAM: Male, 55 years old. Smoker and gt; 40 pack years RADIATION DOSAGE (If Supplied By Facility): CTDIvol = ( 3.02 ) mGy, DLP = ( 97.42 ) mGycm TECHNIQUE: No contrast was administered. Low dose technique was utilized (average mAS-38 and kVp 120). 1.25 mm axial source images with a slice interval of 1.25-mm were reconstructed in lung windows. 2.5 mm axial source images with a slice interval of 2.5-mm were reconstructed in lung windows. 5.0 mm axial source images with a slice interval of 5.0-mm were reconstructed in soft tissue windows. Nodule measured using lung windows on PACS and/or independent workstation with automated measurement of minimum and maximum diameter. Nodule measurement reported as average diameter rounded to the nearest whole number. Growth is defined as an increase ins size of greater than 1.5 mm. COMPARISON: None. NODULES: No suspicious nodules are seen. Emphysema: Mild degree of emphysematous changes. Mild increased linear markings at the lung bases suggestive of scarring. Endobronchial lesion: None. Aorta: Atherosclerotic calcification of the aortic arch. Coronary arteries: Coronary artery calcification. Heart: Prior CABG Pulmonary artery: Unremarkable Mediastinal nodes: Small benign-appearing axillary lymph nodes. Other chest and abdominal findings: CT/Low Dose CT Lung Screening IMPRESSION: Lung-RADS category 2 - Continue annual screening with LDCT in 12 months. IMPORTANT NOTES FOR USE: ACR Lung-RADS Version 1.0 Assessment Categories Release Date: March 27, 2014 Category: Coded 0-4 bases on nodule(s) with highest degree of suspicion. Negative screen is defined as categories 1 and 2; a positive screen is defined as categories 3 and 4. Category 3 and 4A nodules that are unchanged on interval CT should be coded as category 2, and individuals returned to screening in 12 months. Category 4X: Category 3 or 4 nodules with additional imaging findings that increase the suspicion of lung cancer, such as spiculation, GGN that doubles in size in 1 year, enlarged lymph notes, etc. Category Modifiers: S (significant finding unrelated to lung cancer) and C (prior history of treated lung cancer) may be added to the 0-4 Lung-RADS Electronically Signed: Harry Voss MD at 14:34 EST , Service support ,
== END ==
PROVIDERS: PCP Family Medicine; Referring Provider Nurse Practitioner Acute Care; Visit Provider Nurse Practitioner Acute Care
DX: F17.210 Nicotine dependence, cigarettes, uncomplicated (principal)
CPT/HCPCS: 71271

== ENCOUNTER → 2021-02-01 22:02 | Outpatient (CLI) | payer MEDICAID, SELFPAY ==
[2021-01-21 09:54] VITALS: BMI 29.4
[2021-01-29 16:23] VITALS: BMI 29.8
== END ==
PROVIDERS: PCP Family Medicine; Referring Provider Nurse Practitioner Acute Care; Visit Provider Nurse Practitioner Acute Care
DX: G47.33 Obstructive sleep apnea (adult) (pediatric) (principal); J44.9 Chronic obstructive pulmonary disease, unspecified
CPT/HCPCS: 95811

== ENCOUNTER → 2021-02-07 14:53 | Outpatient (CLI) | payer MEDICAID, SELFPAY ==
[2021-01-29 16:23] VITALS: BMI 29.8
[2021-02-07 17:27] LABS: Absolute Lymphocyte Count 2.25 X10^3/uL (0.83-4.51); Absolute Neutrophil Count 5.7 X10^3/uL (2.0-7.7); Basophil# 0.06 X10^3/uL; Basophil% 0.6 % (0-1); Eosinophil# 0.25 X10^3/uL; Eosinophils% 2.7 % (0-5); Hematocrit 47.9 % (40-54); Lymphocyte # 2.25 X10^3/ul (4.0); Mean Corp Hgb Conc 31.3 g/dL (32-36); Mean Corpuscular Volume 92.6 fL (80-94); Mean Platelet Vol. 9.8 fl (6.2-12.0); Monocyte% 11.7 % (0-10); NRBC Flagged by Analyzer 0 % (0-5); Neutrophil # 5.65 X10^3/uL (2.7-7.7); Neutrophil % 60.4 % (47-70); POSITIVE MORPHOLOGY YES; Platelet Count 272 K/mm3 (150-450); RBC Distribution Width CV 20.9 % (11.6-14.6); Red Blood Count 5.17 M/mm3 (4.6-6.2); White Blood Count 9.4 K/mm3 (4.4-11.0)
[2021-02-07 17:31] LABS: Differential Indicated SCAN CRITERIA MET
[2021-02-07 17:55] LABS: Vitamin B12 574 pg/mL (211-911); Vitamin D,25 Hydroxy 15.2 ng/mL
[2021-02-07 17:58] LABS: Hemoglobin A1c 6.4 % (3.8-5.6)
[2021-02-07 18:06] LABS: ALB/GLOB Ratio 0.9 RATIO (0.9-2.4); AST(SGOT) 15 U/L (15-37); Alanine Aminotransfer ALT/SGPT 23 U/L (16-61); Albumin, Serum 3.7 g/dL (3.2-5.0); Alkaline Phosphatase 115 U/L (45-117); Anion Gap 10 (5-15); BUN 10 mg/dL (7-18); BUN/Creat Ratio 9.7 RATIO (10-20); Calcium,Total 9.6 mg/dL (8.5-10.1); Chloride 100 mmol/L (98-107); Cholesterol 210 mg/dL (200); Creatinine, Serum 1.03 mg/dL (0.70-1.30); EST Glomerular Filtration Rate 80 mL/min (>60); Est Glom Filt Rate - Afr Amer 96 mL/min (>60); Ferritin 71 ng/mL (26-388); Globulin 3.9 g/dL (2.2-4.2); Glucose 88 mg/dL (74-106); High Density Lipoprotein 60 mg/dL; Iron 121 ug/dL (65-175); Iron Binding Capacity,Total 394 ug/dL (250-450); Potassium 3.5 mmol/L (3.5-5.1); Protein, Total 7.6 g/dL (6.4-8.2); Sodium Level 135 mmol/L (136-145); Triglycerides 255 mg/dL; Very Low Density Lipoprotein 51 mg/dL (5-40)
[2021-02-07 18:09] LABS: Anisocytosis 1+
[2021-02-15 09:36] LABS: VITAMIN B6 4.7 ug/L (5.3-46.7)
[2021-02-15 13:08] LABS: Vitamin B1, Thiamine 171.5 nmol/L (66.5-200.0)
== END ==
PROVIDERS: PCP Family Medicine; Referring Provider Family Medicine; Visit Provider Family Medicine
DX: E61.1 Iron deficiency (principal); E53.9 Vitamin B deficiency, unspecified; E11.69 Type 2 diabetes mellitus with other specified complication; I25.10 Atherosclerotic heart disease of native coronary artery without angina pectoris; I48.91 Unspecified atrial fibrillation; E55.9 Vitamin D deficiency, unspecified
CPT/HCPCS: 36415; 80053; 80061; 82306; 82607; 82728; 83036; 83540; 83550; 83735; 84207; 84425; 85025

== ENCOUNTER → 2021-02-28 14:49 | Outpatient (CLI) | payer MEDICAID, SELFPAY ==
[2021-01-29 16:23] VITALS: BMI 29.8
[2021-03-01 08:32] LABS: HIV - WCH Non-Reactive (Nonreactive); Hepatitis B Surface Antibody Non-Reactive; Hepatitis B Surface Antigen Non-Reactive (Nonreactive); Hepatitis C Antibody Non-Reactive (Nonreactive)
[2021-03-03 07:38] LABS: HIV-1 RNA by PCR, Quant. < 20 copies/mL (.)
== END ==
PROVIDERS: PCP Family Medicine; Referring Provider Family Medicine; Visit Provider Podiatrist
DX: F19.11 Other psychoactive substance abuse, in remission (principal)
CPT/HCPCS: 36415; 86703; 86706; 86803; 87340; 87536

== ENCOUNTER 2021-04-12 11:16 | Emergency (ER) | payer MEDICAID, SELFPAY ==
[2021-01-29 16:23] VITALS: BMI 29.8
[2021-04-12 11:19] VITALS: BP 154/85; PULSE 92; RESP 22; TEMP 35.9; O2SAT 98; BMI 29.2
[2021-04-12 11:37] VITALS: PULSE 105; RESP 14; O2SAT 99
--- NOTE | 2021-04-12 11:39 | EKG12_ITS ---
Test Reason : CP Blood Pressure : / mmHG Vent. Rate : 104 BPM Atrial Rate : 300 BPM P-R Int : 000 ms QRS Dur : 080 ms QT Int : 388 ms P-R-T Axes : 091 061 078 degrees QTc Int : 510 ms Atrial flutter with variable A-V block Possible Inferior infarct , age undetermined Abnormal ECG Confirmed by JHON LOMELI, SMITA ([id number]), social media editor CANDICE ZAZUETA ([id number]) on 04/16/2021 9:35:57 AM Referred By: LUTHER Confirmed By:SMITA FERREIRA MD
--- NOTE | 2021-04-12 11:42 | EDS_ITS ---
HPI History of Present Illness Chief Complaint: Chest Pain Informant: patient Onset/Context/Timing Onset: Days (3 days) Current Severity: Moderate Maximum Severity: Moderate Narrative Narrative: Patient presents with left-sided chest pain. Patient has a history of recurrent syncope. He states 3 days ago he passed out while he was in his basement and landed on his left side. Since that time he has had increased left-sided chest pain. Patient also has significant cardiac history. In November 2020 patient underwent a heart cath after having an abnormal stress test. This revealed a 40% in-stent stenosis in the RCA, patent LAD, previously occluded circumflex. Patient states he has had multiple work-ups for his recurrent syncope with no definitive cause. [facility] Medical History (Updated 04/12/21 @ 14:[address] Christina Lomas MD) (HFpEF) heart failure with preserved ejection fraction Atherosclerosis of coronary artery bypass graft without angina pectoris Atherosclerosis of coronary artery of [place] heart without angina pectoris Chest pain Chronic anticoagulation Chronic obstructive pulmonary disease Diabetes mellitus Essential hypertension Hyperlipidemia Leg swelling Lower extremity edema Nicotine abuse KENNETH and COPD overlap syndrome PAD (peripheral artery disease) Paroxysmal atrial fibrillation Rectal bleeding Smoking greater than 40 pack years Typical atrial flutter Home Medications gabapentin 1,200 mg PO TIDCM 12/07/15 [History Last Taken 12/18/20 07:00] duloxetine 60 mg capsule,delayed release 60 mg PO DAILY 01/13/18 [History Last Taken 12/18/20] ferrous sulfate 325 mg (65 mg iron) tablet 325 mg PO DAILY tab 11/26/18 [History Last Taken 12/18/20] albuterol sulfate 1 dose IH Q4H PRN PRN 11/09/19 [History Last Taken 12/18/20] albuterol sulfate 2 puff INHALATION Q6H PRN PRN 11/09/19 [History Last Taken 0 07/22/20] nitroglycerin 0.4 mg SL PRN PRN 11/09/19 [History Last Taken 12/18/20] pantoprazole 40 mg tablet,delayed release 40 mg PO DAILY 11/11/19 [History Last Taken 07/22/20] pregabalin 100 mg capsule 100 mg PO TID cap 11/11/19 [History Last Taken 12/18/20 07:00] ropinirole 0.25 mg tablet 0.5 mg PO QHS 11/11/19 [History Last Taken 12/17/20] tiotropium 2.5 mcg-olodaterol 2.5 mcg/actuation mist for inhalation 2 puff INHALATION DAILY 11/11/19 [History Last Taken 12/18/20] trazodone 150 mg tablet 150 mg PO QHS 11/11/19 [History Last Taken 12/17/20] Loratadine 10 mg PO DAILY 04/30/20 [History Last Taken 12/18/20] aspirin 81 mg tablet,delayed release 81 mg PO DAILY 05/24/20 [History Last Taken 12/18/20] pen needle, diabetic #1 box 11/16/20 [Rx Last Taken Unknown] budesonide-formoterol 2 puff INHALATION BID 12/18/20 [History Last Taken 12/18/20] insulin glargine 20 units SC BREAKFAST 12/18/20 [History Last Taken 12/18/20 07:00] tamsulosin 0.4 mg PO DAILY@1730 12/18/20 [History Last Taken 12/17/20] atorvastatin 80 mg tablet 80 mg PO QHS #90 tab 01/29/21 [Rx Last Taken Unknown] clopidogrel 75 mg tablet 75 mg PO DAILY #90 tab 01/29/21 [Rx Last Taken Unknown] ezetimibe 10 mg tablet 10 mg PO DAILY #90 tab 01/29/21 [Rx Last Taken Unknown] isosorbide mononitrate 120 mg tablet,extended release 24 hr 120 mg PO DAILY #90 tab 01/29/21 [Rx Last Taken Unknown] lisinopril 10 mg tablet 10 mg PO DAILY #90 tab 01/29/21 [Rx Last Taken Unknown] metoprolol succinate 100 mg tablet,extended release 24 hr 100 mg PO DAILY #90 tab 01/29/21 [Rx Last Taken Unknown] sotalol 120 mg tablet 120 mg PO BID #180 tab 01/29/21 [Rx Last Taken Unknown] furosemide 80 mg PO DAILY 04/12/21 [History Last Taken Unknown] hydrocodone-acetaminophen 1 tab PO Q6H PRN 3 Days #10 tab 04/12/21 [Rx Last Taken Unknown] Allergy/AdvReac Type Severity Reaction Status Date / Time seasonal Allergy SOB Uncoded 04/12/21 11:18 Family History Father CAD (coronary artery disease) COPD (chronic obstructive pulmonary disease) CHF (congestive heart failure) Mother COPD (chronic obstructive pulmonary disease) Surgical History H/O coronary artery bypass surgery (10/2005) History of coronary artery stent placement (01/05/14) History of left heart catheterization (12/20/20) History of loop recorder (2016) History of open reduction and internal fixation (ORIF) procedure Social History Smoking Status: Current every day smoker alcohol intake: current alcohol intake frequency: a few times a month Alcohol type: beer, wine and hard liquor substance use type: does not use caffeine: Yes Type: coffee what type of physical activity do you participate in: walking frequency: daily duration: < 15 minutes/day seatbelt use: always do you feel safe at home: Yes ROS ROS ED Constitutional Constitutional ED: Denies chills or fever(s) Eyes Eyes: Denies change in vision ENT ENT ED: Denies sore throat Cardiovascular Cardiovascular: Reports chest pain Respiratory/Chest Respiratory/Chest: Reports cough; Denies dyspnea Gastrointestinal Gastrointestinal: Denies abdominal pain, diarrhea, nausea or vomiting Genitourinary Genitourinary ED: Denies dysuria Musculoskeletal Musculoskeletal: Denies back pain Integumentary Denies rash Neurologic Neurologic: Denies headache(s) or weakness Psychiatric Psychiatric: Denies anxiety or depression Endocrine Endocrinology: Denies polydipsia or polyuria Allergic/Immunologic Allergic/Immunologic ED: Denies urticaria EXAM Physical Exam Const Vital Signs: 04/12/21 11:19 04/12/21 11:35 04/12/21 11:37 Temperature 96.7 F L Temperature Source Temporal Pulse Rate 92 105 H Respiratory Rate 22 H 14 Respiratory Effort Short of Breath Respiratory Pattern Normal Blood Pressure 154/85 H Blood Pressure Mean 108 Pulse Ox 98 99 Oxygen Delivery Method Nasal Cannula Nasal Cannula Oxygen Flow Rate (L/min) 3 3 04/12/21 12:46 Temperature Temperature Source Pulse Rate 98 Respiratory Rate 13 Respiratory Effort Respiratory Pattern Blood Pressure 155/85 H Blood Pressure Mean 108 Pulse Ox 97 Oxygen Delivery Method Nasal Cannula Oxygen Flow Rate (L/min) 3 Positive well nourished and well developed General Appearance ED: well developed HEENT Reports normocephalic and head/scalp atraumatic Eyes PERRL and EOMs intact bilaterally Neck supple Chest Wall inspection of chest normal Chest Narrative: Mild tenderness left lower lateral chest wall. No crepitus. No ecchymosis or abrasions. Resp normal respiratory effort and clear to auscultation bilaterally Cardio Rate: other Other Details: Irregular heart rate GI normal to inspection, nondistended, normoactive bowel sounds Palpation: soft Extremity normal to inspection Neuro oriented x3 and no sensory deficits noted Sensorium / Orientation: alert Motor Exam: strength 5/5 throughout Psych mental status grossly normal Skin no rashes or lesions noted MDM MDM MDM Narrative Medical decision making narrative: Patient was given morphine and Zofran for pain. He was observed on youth nutritional monitor. Lab Data Attestation: I reviewed the patient's lab results. Labs: Laboratory Results - last 24 hr 04/12/21 04/12/21 04/12/21 11:35 11:35 11:35 WBC 11.2 H RBC 4.83 Hgb 16.2 Hct 48.5 MCV 100.4 H MCH 33.5 H MCHC 33.4 RDW Std Deviation 69.6 H RDW Coeff of Arleen 18.8 H Plt Count 252 MPV 9.1 Immature Gran % (Auto) 0.400 Neut % (Auto) 70.4 H Lymph % (Auto) 17.7 L Towner % (Auto) 8.5 Eos % (Auto) 2.3 Baso % (Auto) 0.7 Absolute Neuts (auto) 7.9 H Absolute Lymphs (auto) 1.98 Nucleated RBC % 0.3 Anisocytosis 1+ D-Dimer Quant (PE/DVT) 1.17 H* Sodium 135 L Potassium 4.0 Chloride 101 Carbon Dioxide 29.0 Anion Gap 5 BUN 11 Creatinine 1.30 Estim Creat Clear Calc 64.20 Est GFR (MDRD) Af Amer 74 Est GFR (MDRD) Non-Af 61 BUN/Creatinine Ratio 8.5 L Glucose 120 H Calcium 9.1 Troponin I < 0.015 Radiography Chest X-Ray - ED: Read by ED Physician and - (Chest x-ray with left rib series reveals no obvious fracture. No pneumothorax.) Diagnostic Testing: Radiology Impression Ribs w/Chest X-Ray 04/12/21 12:00 IMPRESSION: RIBS: Normal x-ray examination of the ribs. CHEST: Normal x-ray examination of the chest. Electronically Signed: Harry Voss MD at 12:28 EDT , Service support , Chest CTA 04/12/21 12:09 IMPRESSION: No evidence of pulmonary embolus. Electronically Signed: Harry Voss MD at 12:39 EDT , Service support , EKG Initial EKG: Interpretation: Atrial Flutter (Atrial flutter with variable AV block. Ventricular rate 104. No acute ST change.) Treatment and Re-Evaluation Comments:: Patient was given morphine and Zofran for pain control. EKG does reveal atrial flutter. Patient has history of paroxysmal A. fib. He is not on anticoagulant any longer secondary to previous GI bleed. Rib series with chest x-ray reveals no obvious abnormality. D-dimer is slightly elevated. CTA of the chest reveals no PE and no osseous injury. Troponin is negative. Patient's prior cardiac evaluation was reviewed and does include a heart cath and stress test in November of this year. Patient has had ongoing recurrent syncope with multiple work-ups. He is scheduled for a second tilt table test in the coming week or so. He is to follow-up with us. He will be given a short course of [place] to help with pain. Discharge Plan Triage Chief Complaint: Chest Pain ED Provider: Christina Lomas Dx/Rx/DC Orders Clinical Impression: Chest wall contusion Instructions: ED Chest Wall Contusion Prescriptions: New hydrocodone-acetaminophen 5-325 mg tablet 1 tab PO Q6H PRN (Reason: pain) 3 Days Qty: 10 RF: 0 No Action duloxetine 60 mg capsule,delayed release(DR/EC) 60 mg PO DAILY RF: 0 ferrous sulfate 325 mg (65 mg iron) tablet 325 mg PO DAILY RF: 0 trazodone 150 mg tablet 150 mg PO QHS RF: 0 Stiolto Respimat 2.5-2.5 mcg/actuation mist 2 puff INHALATION DAILY RF: 0 ropinirole 0.25 mg tablet 0.5 mg PO QHS RF: 0 pantoprazole [Protonix] 40 mg tablet,delayed release (DR/EC) 40 mg PO DAILY RF: 0 pregabalin [Lyrica] 100 mg capsule 100 mg PO TID RF: 0 aspirin [Adult Aspirin Regimen] 81 mg tablet,delayed release (DR/EC) 81 mg PO DAILY RF: 0 atorvastatin 80 mg tablet 80 mg PO QHS Qty: 90 RF: 3 clopidogrel 75 mg tablet 75 mg PO DAILY Qty: 90 RF: 3 ezetimibe 10 mg tablet 10 mg PO DAILY Qty: 90 RF: 3 isosorbide mononitrate 120 mg tablet extended release 24 hr 120 mg PO DAILY Qty: 90 RF: 3 lisinopril 10 mg tablet 10 mg PO DAILY Qty: 90 RF: 3 metoprolol succinate 100 mg tablet extended release 24 hr 100 mg PO DAILY Qty: 90 RF: 3 sotalol 120 mg tablet 120 mg PO BID Qty: 180 RF: 3 gabapentin 600 MG tablet 1,200 mg PO TIDCM RF: 0 albuterol sulfate 2.5 MG/3 ML solution for nebulization 1 dose IH Q4H PRN PRN (Reason: Sob &/Or Wheezing) RF: 0 nitroglycerin 0.4 MG tablet, sublingual 0.4 mg SL PRN PRN (Reason: chest pain) RF: 0 albuterol sulfate 1 PUFF inhaler 2 puff INHALATION Q6H PRN PRN (Reason: Sob &/Or Wheezing) RF: 0 Loratadine 10 mg PO DAILY RF: 0 (DME) pen needle, diabetic 1 EACH needle 1 ea MC DAILY Qty: 1 RF: 0 budesonide-formoterol 1 INHALER inhaler 2 puff INHALATION BID RF: 0 tamsulosin 0.4 MG capsule 0.4 mg PO DAILY@1730 RF: 0 insulin glargine 100 UNITS/ML insulin pen 20 units SC BREAKFAST RF: 0 furosemide 40 mg tablet 80 mg PO DAILY RF: 0 Primary Care Provider: Blaze Louis Referrals: Blaze Louis MD [Primary Care Provider] - As Needed Disposition Disposition: Home, self care
[2021-04-12] MEDS: 0.9% Normal Saline 1,000 ML 150 ML IV (11:43)
[2021-04-12] MEDS: Ondansetron 4 MG/2 ML Vial IV (11:48)
[2021-04-12] MEDS: Morphine 4 MG/ML Syringe IV (11:49)
[2021-04-12 11:52] LABS: Absolute Lymphocyte Count 1.98 X10^3/uL (0.83-4.51); Absolute Neutrophil Count 7.9 X10^3/uL (2.0-7.7); Basophil# 0.08 X10^3/uL; Basophil% 0.7 % (0-1); Eosinophil# 0.26 X10^3/uL; Eosinophils% 2.3 % (0-5); Hematocrit 48.5 % (40-54); Hemoglobin 16.2 g/dL (13.0-16.5); Lymphocyte # 1.98 X10^3/ul (0.83-4.51); Lymphocyte % 17.7 % (19-41); Mean Corp Hgb Conc 33.4 g/dL (32-36); Mean Corpuscular Hgb 33.5 pg (27.0-32.0); Mean Corpuscular Volume 100.4 fL (80-94); Mean Platelet Vol. 9.1 fl (6.2-12.0); Monocyte# 0.95 X10^3/uL; Monocyte% 8.5 % (0-10); NRBC Flagged by Analyzer 0.3 % (0-5); Neutrophil # 7.88 X10^3/uL (2.7-7.7); Neutrophil % 70.4 % (47-70); POSITIVE MORPHOLOGY YES; Platelet Count 252 K/mm3 (150-450); RBC Distribution Width CV 18.8 % (11.6-14.6); RBC Distribution Width SD 69.6 fl (35.1-43.9); Red Blood Count 4.83 M/mm3 (4.6-6.2); White Blood Count 11.2 K/mm3 (4.4-11.0)
[2021-04-12 11:57] LABS: Differential Indicated SCAN CRITERIA MET
[2021-04-12 12:00] LABS: D-Dimer Quantitative (DVT/PE) 1.17 FEU/ug/m (0.27-0.49)
--- NOTE | 2021-04-12 12:00 | RAD_ITS ---
STUDY: X-RAY - UNILATERAL RIBS ( LEFT ) WITH CHEST REASON FOR EXAM: Male, 55 years old. Injury TECHNIQUE - RIBS: 5 view(s) of the ribs. TECHNIQUE - CHEST: Single PA view of the chest. COMPARISON: Comparison is made with prior chest radiograph dated 12/18/2020. FINDINGS - RIBS: Normal visualized ribs without a demonstrated fracture. FINDINGS - CHEST: EKG electrodes are seen. Hyperinflation. The lungs are clear. There is no demonstrated pleural abnormality. Sternal cerclage wires and vascular clips are present from a prior sternotomy and coronary artery bypass graft procedure (CABG). Normal mediastinum and ranjit. Normal visualized pulmonary arteries. Normal visualized aortic arch and descending thoracic aorta. Normal visualized thoracic spine. Healed right rib fractures. There is no demonstrated abnormality of the visualized soft tissue structures of the upper abdomen. RAD/Ribs Uni Min 3V w/PA Chest IMPRESSION: RIBS: Normal x-ray examination of the ribs. CHEST: Normal x-ray examination of the chest. Electronically Signed: Harry Voss MD at 12:28 EDT , Service support ,
[2021-04-12 12:03] LABS: Anion Gap 5 (5-15); BUN 11 mg/dL (7-18); BUN/Creat Ratio 8.5 RATIO (10-20); Calcium,Total 9.1 mg/dL (8.5-10.1); Chloride 101 mmol/L (98-107); EST Glomerular Filtration Rate 61 mL/min (>60); Est Glom Filt Rate - Afr Amer 74 mL/min (>60); Glucose 120 mg/dL (74-106); Sodium Level 135 mmol/L (136-145)
--- NOTE | 2021-04-12 12:09 | CT_ITS ---
STUDY: CTA CHEST REASON FOR EXAM: Male, 55 years old. CP, syncope RADIATION DOSAGE (If Supplied By Facility): CTDIvol = ( 12.14 ) mGy, DLP = ( 501.53 ) mGycm TECHNIQUE: The examination was performed with the intravenous administration of IV 100mL [id number]-[id number]. Post-processing of the angiographic images was performed, with multiplanar reformation and 3D reconstruction. Individualized dose optimization techniques were used for this CT. COMPARISON: Comparison is made with prior study dated 04/29/2020. FINDINGS: Normal enhancement of the main pulmonary artery and right and left pulmonary arteries. Normal enhancement of the bilateral peripheral pulmonary arteries. There is no demonstrated pulmonary embolism. There is atherosclerotic calcification of the aortic arch with tortuosity. There is no demonstrated aortic dissection. There are calcifications of the coronary arteries. Sternal cerclage wires and vascular clips are present from a prior sternotomy and coronary artery bypass graft procedure (CABG). There are visualized mediastinal lymph nodes, which are within normal size limits, and with normal morphology. Normal hilar regions. Normal visualized trachea and bronchi. The lungs are well expanded. Normal pulmonary parenchyma. Normal pleura. Normal chest wall structures. Normal osseous structures. Stable 3.7 cm x 2.3 cm fat-containing nodule in the right adrenal gland. Diffuse fatty infiltration of the liver. Small hiatal hernia. CT/CTA Chest W/WO Contrast IMPRESSION: No evidence of pulmonary embolus. Electronically Signed: Harry Voss MD at 12:39 EDT , Service support ,
[2021-04-12 12:16] LABS: Anisocytosis 1+
[2021-04-12 12:46] VITALS: BP 155/85; PULSE 98; RESP 13; O2SAT 97
[2021-04-12] MEDS: HYDROcodone Bitartrate/Apap 5/325 Tablet PO (14:12)
[2021-04-12 14:17] VITALS: PULSE 119; RESP 18; O2SAT 96
== END 2021-04-12 14:19 | disposition home or self-care (01) ==
PROVIDERS: Emergency Provider Emergency Medicine; PCP Family Medicine
DX: S20.219A Contusion of unspecified front wall of thorax, initial encounter (principal); E11.51 Type 2 diabetes mellitus with diabetic peripheral angiopathy without gangrene; E78.5 Hyperlipidemia, unspecified; G47.33 Obstructive sleep apnea (adult) (pediatric); I48.0 Paroxysmal atrial fibrillation; I48.92 Unspecified atrial flutter; J44.9 Chronic obstructive pulmonary disease, unspecified; I25.10 Atherosclerotic heart disease of native coronary artery without angina pectoris; F17.210 Nicotine dependence, cigarettes, uncomplicated; Z79.01 Long term (current) use of anticoagulants; Z79.4 Long term (current) use of insulin; Z79.82 Long term (current) use of aspirin; Z79.899 Other long term (current) drug therapy; Z82.49 Family history of ischemic heart disease and other diseases of the circulatory system; W10.9XXA Fall (on) (from) unspecified stairs and steps, initial encounter
CPT/HCPCS: 71101; 71275; 80048; 84484; 85025; 85379; 93005; 96361; 96374; 96375; 99285; J7030; Q9967; A4216; J2405

== ENCOUNTER 2021-04-17 18:54 | Observation (INO) | payer MEDICAID, SELFPAY ==
[2021-04-17] VITALS (10 sets, daily range): BP systolic 86–105; BP diastolic 44–65; PULSE 66–75; RESP 15–22; TEMP 36.4–36.7; O2SAT 96–98; BMI 30.4; BMI 31.7
--- NOTE | 2021-04-17 19:16 | EKG12_ITS ---
Test Reason : SYNCOPE Blood Pressure : / mmHG Vent. Rate : 068 BPM Atrial Rate : 256 BPM P-R Int : 000 ms QRS Dur : 086 ms QT Int : 448 ms P-R-T Axes : 152 056 116 degrees QTc Int : 476 ms Atrial flutter with variable A-V block Inferior infarct , age undetermined ST & T wave abnormality, consider lateral ischemia Abnormal ECG Confirmed by ZACH LOMELI, TED ([id number]), newspaper editor managing CANDICE ZAZUETA ([id number]) on 04/19/2021 12:40:10 P M Referred By: LUX Confirmed By:ALY SERRANO MD
--- NOTE | 2021-04-17 19:19 | EDS_ITS ---
HPI History of Present Illness Chief Complaint: Syncope Detail of Chief Complaint: Shaking then passing out. Informant: patient and spouse/S.O. Onset/Context/Timing Onset: Today Context: Sudden Onset Timing: Intermittent Location: Patient states is been going on for more than a year possibly several years Maximum Severity: Moderate Narrative Narrative: 55-year-old male extensive past medical history of coronary artery disease, triple bypass, multiple stents, multiple MIs and prior strokes. Patient states over the last several years he has had episodes where he begins shaking becomes unresponsive and then falls. He has never been diagnosed with a seizure history. He does have episodes of bowel or bladder incontinence with these episodes. He had one today. He denies any head injury. He denies any recent illness. Prior similar symptoms: Yes Recent Illness/Hospitalization: No PFSH [facility] Medical History (Updated 04/17/21 @ 21:[address] Alejandro Nunes MD) (HFpEF) heart failure with preserved ejection fraction Atherosclerosis of coronary artery bypass graft without angina pectoris Atherosclerosis of coronary artery of [place] heart without angina pectoris Chest pain Chronic anticoagulation Chronic obstructive pulmonary disease Diabetes mellitus Essential hypertension Hyperlipidemia Leg swelling Lower extremity edema Nicotine abuse KENNETH and COPD overlap syndrome PAD (peripheral artery disease) Paroxysmal atrial fibrillation Rectal bleeding Smoking greater than 40 pack years Typical atrial flutter Home Medications gabapentin 1,200 mg PO TIDCM 12/07/15 [History Last Taken 12/18/20 07:00] duloxetine 60 mg capsule,delayed release 60 mg PO DAILY 01/13/18 [History Last Taken 12/18/20] ferrous sulfate 325 mg (65 mg iron) tablet 325 mg PO DAILY tab 11/26/18 [History Last Taken 12/18/20] albuterol sulfate 1 dose IH Q4H PRN PRN 11/09/19 [History Last Taken 12/18/20] albuterol sulfate 2 puff INHALATION Q6H PRN PRN 11/09/19 [History Last Taken 07/22/20] nitroglycerin 0.4 mg SL PRN PRN 11/09/19 [History Last Taken 12/18/20] pantoprazole 40 mg tablet,delayed release 40 mg PO DAILY 11/11/19 [History Last Taken 07/22/20] pregabalin 100 mg capsule 100 mg PO TID cap 11/11/19 [History Last Taken 12/18/20 07:00] ropinirole 0.25 mg tablet 0.5 mg PO QHS 11/11/19 [History Last Taken 12/17/20] tiotropium 2.5 mcg-olodaterol 2.5 mcg/actuation mist for inhalation 2 puff INHALATION DAILY 11/11/19 [History Last Taken 12/18/20] trazodone 150 mg tablet 150 mg PO QHS 11/11/19 [History Last Taken 12/17/20] Loratadine 10 mg PO DAILY 04/30/20 [History Last Taken 12/18/20] aspirin 81 mg tablet,delayed release 81 mg PO DAILY 05/24/20 [History Last Taken 12/18/20] pen needle, diabetic #1 box 11/16/20 [Rx Last Taken Unknown] budesonide-formoterol 2 puff INHALATION BID 12/18/20 [History Last Taken 12/18/20] insulin glargine 20 units SC BREAKFAST 12/18/20 [History Last Taken 12/18/20 07:00] tamsulosin 0.4 mg PO DAILY@1730 12/18/20 [History Last Taken 12/17/20] atorvastatin 80 mg tablet 80 mg PO QHS #90 tab 01/29/21 [Rx Last Taken Unknown] clopidogrel 75 mg tablet 75 mg PO DAILY #90 tab 01/29/21 [Rx Last Taken Unknown] ezetimibe 10 mg tablet 10 mg PO DAILY #90 tab 01/29/21 [Rx Last Taken Unknown] isosorbide mononitrate 120 mg tablet,extended release 24 hr 120 mg PO DAILY #90 tab 01/29/21 [Rx Last Taken Unknown] lisinopril 10 mg tablet 10 mg PO DAILY #90 tab 01/29/21 [Rx Last Taken Unknown] metoprolol succinate 100 mg tablet,extended release 24 hr 100 mg PO DAILY #90 tab 01/29/21 [Rx Last Taken Unknown] sotalol 120 mg tablet 120 mg PO BID #180 tab 01/29/21 [Rx Last Taken Unknown] furosemide 80 mg PO DAILY 04/12/21 [History Last Taken Unknown] hydrocodone-acetaminophen 1 tab PO Q6H PRN 3 Days #10 tab 04/12/21 [Rx Last Taken Unknown] Allergy/AdvReac Type Severity Reaction Status Date / Time seasonal Allergy SOB Uncoded 04/17/21 18:57 Family History Father CAD (coronary artery disease) COPD (chronic obstructive pulmonary disease) CHF (congestive heart failure) Mother COPD (chronic obstructive pulmonary disease) Surgical History H/O coronary artery bypass surgery (10/2005) History of coronary artery stent placement (01/05/14) History of left heart catheterization (12/20/20) History of loop recorder (2016) History of open reduction and internal fixation (ORIF) procedure Social History Smoking Status: Current every day smoker alcohol intake: current alcohol intake frequency: a few times a month Alcohol type: beer, wine and hard liquor substance use type: does not use caffeine: Yes Type: coffee what type of physical activity do you participate in: walking frequency: daily duration: < 15 minutes/day seatbelt use: always do you feel safe at home: Yes ROS ROS ED ROS Narrative Patient denies any recent illness. Review of Systems ROS Unobtainable: Denies due to encephalopathy Constitutional Constitutional ED: Denies fever(s) Eyes Eyes: Denies change in vision ENT ENT ED: Denies ear pain or sore throat Cardiovascular Cardiovascular: Denies chest pain Respiratory/Chest Respiratory/Chest: Denies dyspnea Gastrointestinal Gastrointestinal: Denies abdominal pain, diarrhea, nausea or vomiting Genitourinary Genitourinary ED: Denies dysuria Musculoskeletal Musculoskeletal: Denies myalgias Integumentary Denies rash Neurologic Neurologic: Denies headache(s) Psychiatric Psychiatric: Denies depression Endocrine Endocrinology: Denies polyuria Allergic/Immunologic Allergic/Immunologic ED: Denies urticaria EXAM Physical Exam Narrative Exam Narrative: Middle-aged male no acute distress vital signs stable. His initial blood pressure is 93/44. He does not look septic or toxic. HEENT exam unremarkable atraumatic. Neck nontender. Lungs clear to auscultation bilaterally. Heart regular rhythm no murmur. Chest wall nontender. Prior sternotomy. Well-healed. Abdomen soft nontender normal bowel sounds no peritoneal signs. Patient moving all 4 extremities. No deformities. Abrasion to the left elbow but he is able to flex and extend the left elbow and there is no bony deformity. Neurologically is awake alert with no focal motor deficits at this time. Const Vital Signs: 04/17/21 18:55 04/17/21 19:03 04/17/21 19:18 Temperature 97.6 F L Temperature Source Temporal Pulse Rate 66 Respiratory Rate 15 Respiratory Effort Short of Breath Blood Pressure 93/44 L Blood Pressure Mean 60 Pulse Ox 98 97 Oxygen Delivery Method Nasal Cannula Room Air Oxygen Flow Rate (L/min) 4 04/17/21 19:46 04/17/21 20:25 04/17/21 20:51 Temperature Temperature Source Pulse Rate 71 68 Respiratory Rate 16 22 H Respiratory Effort Blood Pressure 86/52 L 95/50 L 94/54 L Blood Pressure Mean 63 65 67 Pulse Ox 96 Oxygen Delivery Method Room Air Oxygen Flow Rate (L/min) 04/17/21 21:48 Temperature Temperature Source Pulse Rate 75 Respiratory Rate 18 Respiratory Effort Blood Pressure 105/59 L Blood Pressure Mean 74 Pulse Ox 97 Oxygen Delivery Method Nasal Cannula Oxygen Flow Rate (L/min) 4 Positive well nourished and well developed General Appearance ED: well developed HEENT Reports moist mucous membranes Negative for trauma or tenderness Eyes PERRL and EOMs intact bilaterally Neck no lymphadenopathy and supple Chest Wall inspection of chest normal Resp normal respiratory effort and clear to auscultation bilaterally Cardio regular rate, regular rhythm and no murmurs GI normal to inspection, nondistended, normoactive bowel sounds, non-tender and non-distended Auscultation: normoactive bowel sounds Palpation: soft Back/Spine no CVA tenderness Extremity normal to inspection Extremity Narrative: Abrasion of the left elbow. General Extremety ED: Negative for edema or tenderness General Extremity: Negative for edema Neuro oriented x3 and CN's II-XII intact bilaterally Sensorium / Orientation: alert Motor Exam: strength 5/5 throughout Skin no rashes or lesions noted MDM MDM MDM Narrative Medical decision making narrative: 55-year-old male with extensive past medical history. Clinically this sounds like he possibly may be having seizures with the shaking, unresponsiveness and incontinence. He has had prior CAT scans of his head. Will undergo work-up and I will speak to the hospitalist. Multiple repeat exams patient is improving. Currently his blood pressure is 105/50. He is resting comfortably in bed. I spoke to the hospitalist about admission. Lab Data Lab results narrative: CBC unremarkable white count 9. Hemoglobin 13. Chemistries unremarkable except for creatinine 1.68. Troponin normal. Chest x- ray portable one view interpreted by myself and the radiologist shows no acute abnormality. Prior sternotomy with wiring. Lactic acid is elevated 3.2 which may be from his hypotension versus seizure versus other etiologies. Clinically do not think he is septic. Labs: Laboratory Results - last 24 hr 04/17/21 04/17/21 04/17/21 19:35 19:35 20:25 WBC 9.7 RBC 3.85 L Hgb 13.1 Hct 40.2 MCV 104.4 H MCH 34.0 H MCHC 32.6 RDW Std Deviation 71.2 H RDW Coeff of Arleen 18.9 H Plt Count 205 MPV 9.4 Immature Gran % (Auto) 0.800 Neut % (Auto) 65.0 Lymph % (Auto) 21.6 Holmes % (Auto) 8.9 Eos % (Auto) 3.0 Baso % (Auto) 0.7 Absolute Neuts (auto) 6.3 Absolute Lymphs (auto) 2.10 Nucleated RBC % 1.0 Differential Comment SCANNED Sodium 136 Potassium 3.7 Chloride 103 Carbon Dioxide 23.0 Anion Gap 10 BUN 17 Creatinine 1.68 H Estim Creat Clear Calc 49.68 Est GFR (MDRD) Af Amer 55 L Est GFR (MDRD) Non-Af 45 L BUN/Creatinine Ratio 10.1 Glucose 177 H Lactic Acid 3.2 H* Calcium 9.1 Troponin I < 0.015 Radiography Chest X-Ray - ED: 1 View, Read by ED Physician, Heart, Lungs, Mediastinum, Bony Structures, No Acute Disease and Chronic Changes Diagnostic Testing: Radiology Impression Chest X-Ray 04/17/21 19:30 IMPRESSION: No acute radiographic abnormalities. Electronically Signed: Thai Duckworth MD at 20:05 EDT Tel , Service support , EKG Initial EKG: Attestation: I personally reviewed and interpreted this EKG as follows: Interpretation: Atrial Flutter Comments: Atrial flutter with a rate of 68 with an old inferior MN. No significant change from prior. Prior EKG tracings: available for review Prior: Unchanged Discharge Plan Triage Chief Complaint: Syncope ED Provider: Alejandro Nunes Dx/Rx/DC Orders Clinical Impression: Syncope, Acute repetitive seizure, Acute hypotension Prescriptions: No Action duloxetine 60 mg capsule,delayed release(DR/EC) 60 mg PO DAILY RF: 0 ferrous sulfate 325 mg (65 mg iron) tablet 325 mg PO DAILY RF: 0 trazodone 150 mg tablet 150 mg PO QHS RF: 0 Stiolto Respimat 2.5-2.5 mcg/actuation mist 2 puff INHALATION DAILY RF: 0 ropinirole 0.25 mg tablet 0.5 mg PO QHS RF: 0 pantoprazole [Protonix] 40 mg tablet,delayed release (DR/EC) 40 mg PO DAILY RF: 0 pregabalin [Lyrica] 100 mg capsule 100 mg PO TID RF: 0 aspirin [Adult Aspirin Regimen] 81 mg tablet,delayed release (DR/EC) 81 mg PO DAILY RF: 0 atorvastatin 80 mg tablet 80 mg PO QHS Qty: 90 RF: 3 clopidogrel 75 mg tablet 75 mg PO DAILY Qty: 90 RF: 3 ezetimibe 10 mg tablet 10 mg PO DAILY Qty: 90 RF: 3 isosorbide mononitrate 120 mg tablet extended release 24 hr 120 mg PO DAILY Qty: 90 RF: 3 lisinopril 10 mg tablet 10 mg PO DAILY Qty: 90 RF: 3 metoprolol succinate 100 mg tablet extended release 24 hr 100 mg PO DAILY Qty: 90 RF: 3 sotalol 120 mg tablet 120 mg PO BID Qty: 180 RF: 3 gabapentin 600 MG tablet 1,200 mg PO TIDCM RF: 0 albuterol sulfate 2.5 MG/3 ML solution for nebulization 1 dose IH Q4H PRN PRN (Reason: Sob &/Or Wheezing) RF: 0 nitroglycerin 0.4 MG tablet, sublingual 0.4 mg SL PRN PRN (Reason: chest pain) RF: 0 albuterol sulfate 1 PUFF inhaler 2 puff INHALATION Q6H PRN PRN (Reason: Sob &/Or Wheezing) RF: 0 Loratadine 10 mg PO DAILY RF: 0 (DME) pen needle, diabetic 1 EACH needle 1 ea MC DAILY Qty: 1 RF: 0 budesonide-formoterol 1 INHALER inhaler 2 puff INHALATION BID RF: 0 tamsulosin 0.4 MG capsule 0.4 mg PO DAILY@1730 RF: 0 insulin glargine 100 UNITS/ML insulin pen 20 units SC BREAKFAST RF: 0 furosemide 40 mg tablet 80 mg PO DAILY RF: 0 hydrocodone-acetaminophen 5-325 mg tablet 1 tab PO Q6H PRN (Reason: pain) 3 Days Qty: 10 RF: 0 Primary Care Provider: Blaze Louis Referrals: Blaze Louis MD [Primary Care Provider] -
--- NOTE | 2021-04-17 19:30 | RAD_ITS ---
INDICATION: chest pain EXAMINATION/TECHNIQUE: X-RAY - XR Chest 1 View COMPARISON: 04/12/2021. FINDINGS: The lungs are clear. The cardiomediastinal silhouette is unremarkable. Median sternotomy wires and mediastinal clips are present. No pleural effusion or pneumothorax. No acute osseous abnormalities. RAD/Chest 1 View (Portable) IMPRESSION: No acute radiographic abnormalities. Electronically Signed: Thai Duckworth MD at 20:05 EDT Tel , Service support ,
[2021-04-17 19:49] LABS: Absolute Neutrophil Count 6.3 X10^3/uL (2.0-7.7); Basophil# 0.07 X10^3/uL; Basophil% 0.7 % (0-1); Eosinophil# 0.29 X10^3/uL; Hematocrit 40.2 % (40-54); Hemoglobin 13.1 g/dL (13.0-16.5); Lymphocyte % 21.6 % (19-41); Mean Corp Hgb Conc 32.6 g/dL (32-36); Mean Corpuscular Volume 104.4 fL (80-94); Mean Platelet Vol. 9.4 fl (6.2-12.0); Monocyte# 0.87 X10^3/uL; Monocyte% 8.9 % (0-10); Neutrophil # 6.33 X10^3/uL (2.7-7.7); POSITIVE MORPHOLOGY YES; Platelet Count 205 K/mm3 (150-450); RBC Distribution Width CV 18.9 % (11.6-14.6); RBC Distribution Width SD 71.2 fl (35.1-43.9); Red Blood Count 3.85 M/mm3 (4.6-6.2); White Blood Count 9.7 K/mm3 (4.4-11.0)
[2021-04-17] MEDS: 0.9% Normal Saline 1,000 ML 999 ML IV ×2 (19:49→20:25)
[2021-04-17 20:09] LABS: Differential Indicated SCAN CRITERIA MET
[2021-04-17 20:12] LABS: Anion Gap 10 (5-15); BUN 17 mg/dL (7-18); BUN/Creat Ratio 10.1 RATIO (10-20); Calcium,Total 9.1 mg/dL (8.5-10.1); Chloride 103 mmol/L (98-107); Creatinine, Serum 1.68 mg/dL (0.70-1.30); EST Glomerular Filtration Rate 45 mL/min (>60); Est Glom Filt Rate - Afr Amer 55 mL/min (>60); Estimated Creatinine Clearance 49.68 ml/min; Glucose 177 mg/dL (74-106); Potassium 3.7 mmol/L (3.5-5.1); Sodium Level 136 mmol/L (136-145)
[2021-04-17 20:34] LABS: Differential Comment SCANNED
[2021-04-17 20:59] LABS: Lactic Acid 3.2 mmol/L (0.4-1.9)
--- NOTE | 2021-04-17 22:02 | PCM.HP.STD ---
HPI - General General Date of Admission: 04/17/21 HPI Narrative The patient is a 55 y/o M w/ PMHx: CAD s/p CABG (CARTER to LAD and SVG to obtuse marginal branch), Diastolic CHF, PAF s/p prior cardioversion, PAD, KENNETH on CPAP, Tobacco use, Chronic COPD, Diabetes mellitus type II w/ neuropathy, RLS, BPH, Tobacco use who presents to the [facility] ED on 04/17/21 with history of longstanding history of intermittent syncopal events preceded by body shaking, fall and often loss of bowel or bladder with most recent fall on day of ED presentation falling onto his left side with abrasions to his left flank and left arm with loss of bladder, unclear specific timeline but noted usually short-lived with no specific prodrome leading up to the event. Patient is unable to discern if he is had confusion following but denies having any history during awakening to feel urine all over himself. He does state that he has been evaluated prior but unable to tell if he is had an MRI or an EEG and from discussion sounds as though he had syncopal evaluations but not seizure evaluations. Per significant report he did not have any trauma to his head. Work-up in the ED included T 97.6, heart rate 75, BP 105 or 59, respiratory rate 18, 97% on room air, CBC with WBC 9.7, hemoglobin 13.1, platelet 2 5 without marked shift, BMP with BUN/Dum[place] 17/1.68 with baseline creatinine prior 1.3, glucose 177, lactic acid 3.2, troponin less than 0.015, EKG with atrial flutter, chest x-ray with no acute cardiopulmonary findings or any evidence of rib fractures. In the ED the patient did have low BP therefore 2 L normal saline was administered with improvement. [facility] Medical History (Updated 04/17/21 @ 21:[address] Alejandro Nunes MD) (HFpEF) heart failure with preserved ejection fraction Atherosclerosis of coronary artery bypass graft without angina pectoris Atherosclerosis of coronary artery of [place] heart without angina pectoris Chest pain Chronic anticoagulation Chronic obstructive pulmonary disease Diabetes mellitus Essential hypertension Hyperlipidemia Leg swelling Lower extremity edema Nicotine abuse KENNETH and COPD overlap syndrome PAD (peripheral artery disease) Paroxysmal atrial fibrillation Rectal bleeding Smoking greater than 40 pack years Typical atrial flutter Home Medications gabapentin 1,200 mg PO TIDCM 12/07/15 [History Last Taken 12/18/20 07:00] duloxetine 60 mg capsule,delayed release 60 mg PO DAILY 01/13/18 [History Last Taken 12/18/20] ferrous sulfate 325 mg (65 mg iron) tablet 325 mg PO DAILY tab 11/26/18 [History Last Taken 12/18/20] albuterol sulfate 1 dose IH Q4H PRN PRN 11/09/19 [History Last Taken 12/18/20] albuterol sulfate 2 puff INHALATION Q6H PRN PRN 11/09/19 [History Last Taken 07/22/20] nitroglycerin 0.4 mg SL PRN PRN 11/09/19 [History Last Taken 12/18/20] pantoprazole 40 mg tablet,delayed release 40 mg PO DAILY 11/11/19 [History Last Taken 07/22/20] pregabalin 100 mg capsule 100 mg PO TID cap 11/11/19 [History Last Taken 12/18/20 07:00] ropinirole 0.25 mg tablet 0.5 mg PO QHS 11/11/19 [History Last Taken 12/17/20] tiotropium 2.5 mcg-olodaterol 2.5 mcg/actuation mist for inhalation 2 puff INHALATION DAILY 11/11/19 [History Last Taken 12/18/20] trazodone 150 mg tablet 150 mg PO QHS 11/11/19 [History Last Taken 12/17/20] Loratadine 10 mg PO DAILY 04/30/20 [History Last Taken 12/18/20] aspirin 81 mg tablet,delayed release 81 mg PO DAILY 05/24/20 [History Last Taken 12/18/20] pen needle, diabetic #1 box 11/16/20 [Rx Last Taken Unknown] budesonide-formoterol 2 puff INHALATION BID 12/18/20 [History Last Taken 12/18/20] insulin glargine 20 units SC BREAKFAST 12/18/20 [History Last Taken 12/18/20 07:00] tamsulosin 0.4 mg PO DAILY@1730 12/18/20 [History Last Taken 12/17/20] atorvastatin 80 mg tablet 80 mg PO QHS #90 tab 01/29/21 [Rx Last Taken Unknown] clopidogrel 75 mg tablet 75 mg PO DAILY #90 tab 01/29/21 [Rx Last Taken Unknown] ezetimibe 10 mg tablet 10 mg PO DAILY #90 tab 01/29/21 [Rx Last Taken Unknown] isosorbide mononitrate 120 mg tablet,extended release 24 hr 120 mg PO DAILY #90 tab 01/29/21 [Rx Last Taken Unknown] lisinopril 10 mg tablet 10 mg PO DAILY #90 tab 01/29/21 [Rx Last Taken Unknown] metoprolol succinate 100 mg tablet,extended release 24 hr 100 mg PO DAILY #90 tab 01/29/21 [Rx Last Taken Unknown] sotalol 120 mg tablet 120 mg PO BID #180 tab 01/29/21 [Rx Last Taken Unknown] furosemide 80 mg PO DAILY 04/12/21 [History Last Taken Unknown] hydrocodone-acetaminophen 1 tab PO Q6H PRN 3 Days #10 tab 04/12/21 [Rx Last Taken Unknown] Allergy/AdvReac Type Severity Reaction Status Date / Time seasonal Allergy SOB Uncoded 04/17/21 18:57 Family History Father CAD (coronary artery disease) COPD (chronic obstructive pulmonary disease) CHF (congestive heart failure) Mother COPD (chronic obstructive pulmonary disease) Surgical History H/O coronary artery bypass surgery (10/2005) History of coronary artery stent placement (01/05/14) History of left heart catheterization (12/20/20) History of loop recorder (2016) History of open reduction and internal fixation (ORIF) procedure Social History (Updated 04/17/21 @ 22:[address] Trish Fowler MD) household members: significant other Smoking Status: Current every day smoker tobacco type: cigarettes Smoking packs per day: 1 Smoking cigarettes per day: 20.0 Years smoked: 45 Smoking pack-years: 45.00 alcohol intake: current alcohol intake frequency: a few times a month Alcohol type: beer, wine and hard liquor substance use type: does not use caffeine: Yes Type: coffee what type of physical activity do you participate in: walking frequency: daily duration: < 15 minutes/day seatbelt use: always do you feel safe at home: Yes ROS ROS Narrative Admission Review of Systems: CONSTITUTIONAL: No weight loss, fever, chills, + weakness or fatigue. HEENT: Eyes: No visual loss, blurred vision, double vision or yellow sclerae. Ears, Nose, Throat: No hearing loss, sneezing, congestion, runny nose or sore throat. SKIN: No rash or itching, lesions, wounds. CARDIOVASCULAR: + L chest wall pain s/p fall, No palpitations, edema, orthopnea, syncopal events. RESPIRATORY: No shortness of breath, cough or sputum, wheezing, hemoptysis. GASTROINTESTINAL: No anorexia, nausea, vomiting or diarrhea, abdominal pain, melena, BRBPR. GENITOURINARY: No dysuria, frequency, urgency or retention. NEUROLOGICAL: + Suspected seizure/syncopal event, loss of bowel/bladder. No headache, dizziness,paralysis, ataxia, numbness or tingling in the extremities, focal weakness. MUSCULOSKELETAL: + muscle, back pain, joint pain or stiffness. HEMATOLOGIC: + anemia, bleeding or bruising. LYMPHATICS: No enlarged nodes. No history of splenectomy. PSYCHIATRIC: + history of depression or anxiety. ENDOCRINOLOGIC: No reports of sweating, cold or heat intolerance. No polyuria or polydipsia. ALLERGIES: No history of asthma, hives, eczema or rhinitis. Vital Signs Vital Signs Vital Signs: 04/17/21 18:55 04/17/21 19:03 04/17/21 19:18 Temperature 97.6 F L Temperature Source Temporal Pulse Rate 66 Respiratory Rate 15 Respiratory Effort Short of Breath Blood Pressure 93/44 L Blood Pressure Mean 60 Pulse Ox 98 97 Oxygen Delivery Method Nasal Cannula Room Air Oxygen Flow Rate (L/min) 4 04/17/21 19:46 04/17/21 20:25 04/17/21 20:51 Temperature Temperature Source Pulse Rate 71 68 Respiratory Rate 16 22 H Respiratory Effort Blood Pressure 86/52 L 95/50 L 94/54 L Blood Pressure Mean 63 65 67 Pulse Ox 96 Oxygen Delivery Method Room Air Oxygen Flow Rate (L/min) 04/17/21 21:48 04/17/21 21:52 Temperature 97.6 F L Temperature Source Temporal Pulse Rate 75 75 Respiratory Rate 18 18 Respiratory Effort Blood Pressure 105/59 L 105/59 L Blood Pressure Mean 74 74 Pulse Ox 97 97 Oxygen Delivery Method Nasal Cannula Nasal Cannula Oxygen Flow Rate (L/min) 4 4 Physical Exam Narrative Physical Examination: General: awake, alert, oriented x 3 and cooperative, seated upright in the ED bed in no apparent distress, notes feeling fatigue and is embarrassed by these continued events with loss of bladder and bowel. Skin: normal color, normal turgor, no icterus, no cyanosis except for abrasions recent LUE and L lateral chest. HEENT: AT/NC, EOMI, PERRLA, dry MM, no carotid bruits or JVD noted. Lungs: CTA bilaterally, moderate effort, mild decrease BL bases, no rales, ronchi or wheezing. Heart: Irregular rhythm; no gallop, rub audible. Abdomen: soft, obese, NTTP, ND, distant normal BS, no HSM. Extremities: No cyanosis, clubbing, or edema. Neurological: patient awake, alert, oriented as noted, cognitive function improved, appears intact; pupils equally reactive to light and accommodation, cranial nerves II-XII grossly normal, moving all 4 extremities, no focal deficits, strength mildly globally decreased secondary to acute presentation, discomfort w/ fall. Psychiatric: affect appears fatigued, no acute evidence of depressive or anxiety feelings. Lab / Micro Data Result Diagrams: 04/17/21 19:35 04/17/21 19:35 Labs: Laboratory Results - last 24 hr 04/17/21 04/17/21 04/17/21 19:35 19:35 20:25 WBC 9.7 RBC 3.85 L Hgb 13.1 Hct 40.2 MCV 104.4 H MCH 34.0 H MCHC 32.6 RDW Std Deviation 71.2 H RDW Coeff of Arleen 18.9 H Plt Count 205 MPV 9.4 Immature Gran % (Auto) 0.800 Neut % (Auto) 65.0 Lymph % (Auto) 21.6 Rankin % (Auto) 8.9 Eos % (Auto) 3.0 Baso % (Auto) 0.7 Absolute Neuts (auto) 6.3 Absolute Lymphs (auto) 2.10 Nucleated RBC % 1.0 Differential Comment SCANNED Sodium 136 Potassium 3.7 Chloride 103 Carbon Dioxide 23.0 Anion Gap 10 BUN 17 Creatinine 1.68 H Estim Creat Clear Calc 49.68 Est GFR (MDRD) Af Amer 55 L Est GFR (MDRD) Non-Af 45 L BUN/Creatinine Ratio 10.1 Glucose 177 H Lactic Acid 3.2 H* Calcium 9.1 Troponin I < 0.015 Radiology Impression Chest X-Ray 04/17/21 19:30 IMPRESSION: No acute radiographic abnormalities. Electronically Signed: Thai Duckworth MD at 20:05 EDT Tel , Service support , Assessment & Plan Assessment/Plan (1) Acute repetitive seizure: PLAN: The patient is a 55 y/o M w/ PMHx: CAD s/p CABG (CARTER to LAD and SVG to obtuse marginal branch), Diastolic CHF, PAF s/p prior cardioversion, PAD, KENNETH on CPAP, Tobacco use, Chronic COPD, Diabetes mellitus type II w/ neuropathy, RLS, BPH, Tobacco use who presents to the [facility] ED on 04/17/21 with history of longstanding history of intermittent syncopal events preceded by body shaking, fall and often loss of bowel or bladder with most recent fall on day of ED presentation falling onto his left side with abrasions to his left flank and left arm with loss of bladder, unclear specific timeline but noted usually short-lived with no specific prodrome leading up to the event. 1. Suspected Recurrent Seizure: Seizure like activity history with shaking, syncope, loss of bowel and bladder which has occurred prior but unclear why no prior evaluations or medical care sought. CT head without acute intracranial pathology. Will admit to PCU, maintain on telemetry in PCU on seizure precautions, obtain EEG, obtain brain MRI, obtain TSH, obtain UDS. UA and repeat LA pending per ED. Will place on Keppra IV given serial history. Once imaging/EEG obtained would plan Neurology consultation. PRN ativan IV for seizure activity. 2. Lactic acidosis with transient hypotension: Suspect secondary to #1, seizure activity, 2 L normal saline administered in the ED, no obvious evidence of any infection, afebrile, trending lactic acid and continue IV fluids with BP monitoring as well as hold parameters on patient BP regimen. 3. CAD, PAD: Status post PCI and CABG CARTER to LAD and SVG to obtuse marginal branch, continue aspirin, Plavix, metoprolol, lisinopril with hold parameters, statin, Ranexa therapies. 4. PAF: We will continue home aspirin, Plavix, metoprolol with hold parameters, sotalol regimen, not anticoagulated. 5. Diabetes mellitus type II with neuropathy: Hold oral home regimen, continue home insulin regimen, ADA diet, accu checks w/ ISS, continue patient home gabapentin regimen. 6. Chronic diastolic CHF: We will continue home aspirin, Plavix, statin, metoprolol, lisinopril, Lasix with hold parameters regimen. 7. Hypertension: Continue home regimen including isosorbide, lisinopril, Lasix, metoprolol with hold parameters given low BP upon initial presentation, PRN hydralazine. 8. Hyperlipidemia: Continue home statin and Zetia regimen. 9. Chronic COPD: Hold home inhalers, transition to ATC duonebs, PRN albuterol, HOB, IS parameters. 10. Anxiety and depression: We will continue patient home duloxetine regimen. 11. BPH: We will continue patient home Flomax regimen. 12. Tobacco Abuse: Encouraged cessation, inpatient consultation per RT, NR if desired. 13. RLS: We will continue patient home nightly Requip regimen. 14. KENNETH: CPAP q HS. 15. DVT prophylaxis: SCDs, lovenox. 16. CODE status: Patient does not have healthcare power of commercial litigation attorney nor living will set up. He currently resides with his girlfriend and notes that his stepmother also lives with him. Discussed CODE status at length including difference between FULL code, DNR-CCA and DNR-CC status. Following discussions about the differences in these status, requested Full Code status. Advanced Care Planning Face to Face Time: 16 minutes. Visit Charges OBSV E&M: 92665 Initial observation care L3 Procedures Hospitalists Procedures: 61756 Advncd Care Plan 30 Min
[2021-04-17 22:46] LABS: Magnesium 1.6 mg/dL (1.6-2.6)
[2021-04-17 23:00] LABS: Bedside Glucose 131 mg/dL (70-110)
[2021-04-17] MEDS: 0.9% Normal Saline 1,000 ML 100 ML IV (23:14)
[2021-04-17] MEDS: 0.9% Saline Lock 10 ML Syringe IV (23:14)
[2021-04-18] VITALS (11 sets, daily range): BP systolic 113–144; BP diastolic 65–86; PULSE 53–85; RESP 16–19; TEMP 36.4–36.8; O2SAT 97–98
[2021-04-18 00:27] LABS: Reflex Lactate? Y
[2021-04-18 00:43] LABS: Lactic Acid 1.1 mmol/L (0.4-1.9)
[2021-04-18 03:29] LABS: Bacteria 0 SEEN /hpf (None Seen); Color, Urine Yellow (Yellow); Glucose, Dipstick Normal (Normal); Ketone-Dipstick Negative (Negative); Leukocyte Esterase-Dipstick 100 /ul (Negative); Mucous, Urine 0 SEEN /hpf (<or=2+); Nitrite-Dipstick Negative (Negative); Occult Blood-Urine Negative /ul (Negative); Protein-Dipstick Negative (Negative); Red Blood Cells-Urine 0 SEEN /hpf (0-5); Specific Gravity, Urine 1.015 (1.002-1.030); Squamous Epithelial Cells - UA 0 SEEN /hpf (0-5); Urine Bilirubin Dipstick Negative (Negative); Urine Clarity Sl. Cloudy (Clear); Urine Urobilinogen Normal (Normal)
[2021-04-18 03:35] LABS: Transitional Epithelial - Ur 0-5 SEEN /hpf (0-5); White Blood Cells 10-25 SEEN /hpf (0-5)
[2021-04-18] MEDS: oxyCODONE 5 MG Tablet PO ×3 (03:43→18:09)
[2021-04-18 03:45] LABS: Amphetamine Urine VISTA NEGATIVE (<1000 ng/mL); Barbiturate Urine VISTA NEGATIVE (< 200 ng/mL); Benzodiazepine Urine VISTA NEGATIVE (< 200 ng/mL); Cocaine Urine VISTA NEGATIVE (< 300 ng/mL); Ecstacy Urine VISTA NEGATIVE (< 500 ng/mL); Methadone Urine VISTA NEGATIVE (< 300 ng/mL); PCP Urine VISTA NEGATIVE (< 25 ng/mL); THC Urine VISTA POSITIVE (< 50 ng/mL); Vista UDS pH Range 5
[2021-04-18] MEDS: levETIRAcetam IV 1,000 MG/100 ML BAG 400 MG IV (04:07)
--- NOTE | 2021-04-18 05:55 | MRI_ITS ---
STUDY: MRI BRAIN WITHOUT CONTRAST REASON FOR EXAM: Male, 55 years old. seizure TECHNIQUE: Standardized multiplanar fat and water weighted pulse sequences were obtained. COMPARISON: CT brain 05/25/2019 FINDINGS: There is mild cerebral atrophy with widening of the extra-axial spaces and ventricular dilatation. There are multiple white matter hyperintensities, distributed throughout the deep white matter tracts of the cerebral hemispheres, consistent with moderate chronic white matter ischemic changes. There is no evidence for recent intracranial ischemia or other cause of cytotoxic edema on diffusion weighted imaging (DWI). Normal bilateral basal ganglia. Normal thalami. There is no extra-axial fluid accumulation. Normal flow voids within the major intracranial circulation suggesting patency by spin echo criteria. Normal sella turcica, pituitary gland, infundibular stalk, optic chiasm and hypothalamus. Normal tectal plate and pineal gland. Normal midbrain, stephanie and medulla. Normal cerebellum. Normal basal cisterns. Normal bilateral temporal bones. Normal bilateral internal auditory canals. No demonstrated orbital abnormality, within the constraints of a routine brain study. Normal visualized paranasal sinuses. Normal calvarium and skull base. Normal visualized soft tissue structures. Normal visualized upper cervical spine. MRI/Brain without Contrast IMPRESSION: Involutional changes of the brain, as described above. Electronically Signed: Zeke Gardner MD at 16:41 EDT , Service support ,
[2021-04-18] MEDS: Ipratropium/Albuterol Sulfate 3 ML AMPUL.NEB INHALATION ×3 (06:34→19:13)
[2021-04-18] MEDS: Pregabalin 50 MG Capsule 100 MG PO ×3 (06:36→23:21)
[2021-04-18 06:40] LABS: Absolute Lymphocyte Count 2.26 X10^3/uL (0.83-4.51); Absolute Neutrophil Count 4.6 X10^3/uL (2.0-7.7); Basophil# 0.07 X10^3/uL; Basophil% 0.9 % (0-1); Eosinophil# 0.32 X10^3/uL; Hematocrit 38.3 % (40-54); Hemoglobin 12.3 g/dL (13.0-16.5); Lymphocyte # 2.26 X10^3/ul (0.83-4.51); Mean Corp Hgb Conc 32.1 g/dL (32-36); Mean Corpuscular Hgb 33.9 pg (27.0-32.0); Mean Corpuscular Volume 105.5 fL (80-94); Mean Platelet Vol. 9.3 fl (6.2-12.0); Monocyte# 0.76 X10^3/uL; Monocyte% 9.4 % (0-10); NRBC Flagged by Analyzer 0.5 % (0-5); Neutrophil # 4.61 X10^3/uL (2.7-7.7); POSITIVE MORPHOLOGY YES; Platelet Count 150 K/mm3 (150-450); RBC Distribution Width CV 19.1 % (11.6-14.6); RBC Distribution Width SD 72.7 fl (35.1-43.9); Red Blood Count 3.63 M/mm3 (4.6-6.2); White Blood Count 8.1 K/mm3 (4.4-11.0)
[2021-04-18 06:45] LABS: Bedside Glucose 108 mg/dL (70-110)
[2021-04-18 06:54] LABS: Differential Indicated SCAN CRITERIA MET
[2021-04-18 07:18] LABS: AST(SGOT) 23 U/L (15-37); Alanine Aminotransfer ALT/SGPT 31 U/L (16-61); Albumin, Serum 2.9 g/dL (3.2-5.0); Alkaline Phosphatase 77 U/L (45-117); Anion Gap 3 (5-15); BUN 15 mg/dL (7-18); BUN/Creat Ratio 11.8 RATIO (10-20); Calcium,Total 8.1 mg/dL (8.5-10.1); Chloride 110 mmol/L (98-107); Creatinine, Serum 1.27 mg/dL (0.70-1.30); EST Glomerular Filtration Rate 63 mL/min (>60); Est Glom Filt Rate - Afr Amer 76 mL/min (>60); Estimated Creatinine Clearance 65.72 ml/min; Globulin 2.8 g/dL (2.2-4.2); Glucose 101 mg/dL (74-106); Potassium 4.3 mmol/L (3.5-5.1); Protein, Total 5.7 g/dL (6.4-8.2); Sodium Level 140 mmol/L (136-145); Thyroid Stim Hormone (TSH) 3.25 uIU/mL (0.358-3.74)
--- NOTE | 2021-04-18 07:54 | TELEMED_ITS ---
[facility] Telemed has confirmed receipt of a request for visit. This document confirms receipt of the order initiating the consult. To find the results of the consultation, please view the patient's reports for the scanned Telemed Consult.
[2021-04-18 08:00] LABS: Anisocytosis 1+; Differential Comment SCANNED; Macrocytosis 1+; Red Cell Morphology N CHROM NORMAL (NORM C&C)
[2021-04-18] MEDS: Ferrous Sulfate 325 MG Tablet PO (08:53)
[2021-04-18] MEDS: Gabapentin 600 MG Tablet 1200 MG PO ×3 (08:54→16:57)
[2021-04-18] MEDS: Aspirin E.C. 81 MG Tablet PO (08:55)
[2021-04-18] MEDS: Clopidogrel Bisulfate 75 MG Tablet PO (08:55)
[2021-04-18] MEDS: Loratadine 10 MG Tablet PO (08:55)
[2021-04-18] MEDS: DULoxetine Hcl 60 MG Capsule PO (08:55)
[2021-04-18] MEDS: Enoxaparin 40 MG/0.4 ML Syringe SC (08:55)
[2021-04-18] MEDS: Furosemide 80 MG Tablet PO (08:55)
[2021-04-18] MEDS: Pantoprazole Sodium 40 MG Tablet PO (08:56)
[2021-04-18] MEDS: Ezetimibe 10 MG Tablet PO (08:56)
[2021-04-18] MEDS: Lisinopril 10 MG Tablet PO (08:58)
[2021-04-18] MEDS: 0.9% Normal Saline 1,000 ML 100 ML IV (09:00)
--- NOTE | 2021-04-18 11:53 | RAD_ITS ---
STUDY: X-RAY CHEST REASON FOR EXAM: Male, 55 years old. Worsening shortness of breath TECHNIQUE: Single AP portable view of the chest. COMPARISON: 04/17/2021 FINDINGS: EKG leads overlie the chest The lungs are clear and expanded. There is no demonstrated pleural abnormality. Sternal cerclage wires and vascular clips are present from a prior sternotomy and coronary artery bypass graft procedure (CABG). Normal mediastinum and ranjit. Normal visualized pulmonary arteries. Normal visualized aortic arch and descending thoracic aorta. There are diffuse degenerative changes of the visualized thoracic spine. Normal visualized ribs, clavicles, and shoulders. There is no demonstrated abnormality of the visualized soft tissue structures of the upper abdomen. RAD/Chest 1 View (Portable) IMPRESSION: No acute pulmonary process, no interval change Electronically Signed: Leobardo Atkinson MD at 12:11 EDT , Service support ,
[2021-04-18] MEDS: Insulin Lispro 100 UNIT/ML INSULN.PEN SC ×3 (12:14→23:24)
[2021-04-18 12:40] LABS: Bedside Glucose 170 mg/dL (70-110)
[2021-04-18] MEDS: 0.9% Saline Lock 10 ML Syringe IV ×2 (14:01→23:23)
--- NOTE | 2021-04-18 14:13 | PCM.PN.HOSP ---
Documented by User: Alina Platt NP, [employer] 04/18/21 14:30 Subjective Subjective Patient seen and examined. Denies further seizure activity. Reports shortness of breath, wheezing. Denies fever, chills, cough. Denies other symptoms or complaints. Objective Data Objective Data Vital Signs: Vital Signs Temp Pulse Resp BP Pulse Ox 97.6 F L 67 18 119/67 98 04/18/21 10:45 04/18/21 13:23 04/18/21 13:23 04/18/21 10:45 04/18/21 10:45 Oxygen Flow Rate (L/min) 4 Oxygen Delivery Method Nasal Cannula Weight: 214 lb 11.684 oz Body Mass Index (BMI) 31.7 Intake & Output: Intake and Output for Last 24 Hours 04/16/21 04/17/21 04/18/21 23:59 23:59 23:59 Intake Total 2119 2111.67 / 2111.67 Output Total 700 / 700 Balance 2119 1411.67 / 1411.67 Lab / Micro Data Result Diagrams: 04/18/21 06:25 04/18/21 06:25 Labs: Laboratory Results - last 24 hr 04/17/21 04/17/21 04/17/21 19:35 19:35 19:35 WBC 9.7 RBC 3.85 L Hgb 13.1 Hct 40.2 MCV 104.4 H MCH 34.0 H MCHC 32.6 RDW Std Deviation 71.2 H RDW Coeff of Arleen 18.9 H Plt Count 205 MPV 9.4 Immature Gran % (Auto) 0.800 Neut % (Auto) 65.0 Lymph % (Auto) 21.6 Douglas % (Auto) 8.9 Eos % (Auto) 3.0 Baso % (Auto) 0.7 Absolute Neuts (auto) 6.3 Absolute Lymphs (auto) 2.10 Nucleated RBC % 1.0 Differential Comment SCANNED RBC Morphology Anisocytosis Macrocytosis Sodium 136 Potassium 3.7 Chloride 103 Carbon Dioxide 23.0 Anion Gap 10 BUN 17 Creatinine 1.68 H Estim Creat Clear Calc 49.68 Est GFR (MDRD) Af Amer 55 L Est GFR (MDRD) Non-Af 45 L BUN/Creatinine Ratio 10.1 Glucose 177 H Lactic Acid Calcium 9.1 Magnesium 1.6 Total Bilirubin AST ALT Alkaline Phosphatase Troponin I < 0.015 Total Protein Albumin Globulin Albumin/Globulin Ratio TSH Urine Color Urine Clarity Urine pH Ur Specific [place] Urine Protein Urine Glucose (UA) Urine Ketones Urine Occult Blood Urine Nitrite Urine Bilirubin Urine Urobilinogen Ur Leukocyte Esterase Urine RBC Urine WBC Ur Squamous Epith Cells Ur Transition Epith Cell Urine Bacteria Urine Mucus Urine Opiates Screen Urine Methadone Screen Ur Barbiturates Screen Ur Phencyclidine Scrn Ur Amphetamines Screen U Methamphetamin-MDMA U Benzodiazepines Scrn Urine Cocaine Screen U Cannabinoids Screen Ur Drug Screen Comment POC Glucose 04/17/21 04/17/21 04/18/21 20:25 22:54 00:07 WBC RBC Hgb Hct MCV MCH MCHC RDW Std Deviation RDW Coeff of Arleen Plt Count MPV Immature Gran % (Auto) Neut % (Auto) Lymph % (Auto) Douglas % (Auto) Eos % (Auto) Baso % (Auto) Absolute Neuts (auto) Absolute Lymphs (auto) Nucleated RBC % Differential Comment RBC Morphology Anisocytosis Macrocytosis Sodium Potassium Chloride Carbon Dioxide Anion Gap BUN Creatinine Estim Creat Clear Calc Est GFR (MDRD) Af Amer Est GFR (MDRD) Non-Af BUN/Creatinine Ratio Glucose Lactic Acid 3.2 H* 1.1 Calcium Magnesium Total Bilirubin AST ALT Alkaline Phosphatase Troponin I Total Protein Albumin Globulin Albumin/Globulin Ratio TSH Urine Color Urine Clarity Urine pH Ur Specific [place] Urine Protein Urine Glucose (UA) Urine Ketones Urine Occult Blood Urine Nitrite Urine Bilirubin Urine Urobilinogen Ur Leukocyte Esterase Urine RBC Urine WBC Ur Squamous Epith Cells Ur Transition Epith Cell Urine Bacteria Urine Mucus Urine Opiates Screen Urine Methadone Screen Ur Barbiturates Screen Ur Phencyclidine Scrn Ur Amphetamines Screen U Methamphetamin-MDMA U Benzodiazepines Scrn Urine Cocaine Screen U Cannabinoids Screen Ur Drug Screen Comment POC Glucose 131 H 04/18/21 04/18/21 04/18/21 03:22 03:22 06:25 WBC 8.1 RBC 3.63 L Hgb 12.3 L Hct 38.3 L MCV 105.5 H MCH 33.9 H MCHC 32.1 RDW Std Deviation 72.7 H RDW Coeff of Arleen 19.1 H Plt Count 150 MPV 9.3 Immature Gran % (Auto) 0.700 Neut % (Auto) 57.0 Lymph % (Auto) 28.0 Douglas % (Auto) 9.4 Eos % (Auto) 4.0 Baso % (Auto) 0.9 Absolute Neuts (auto) 4.6 Absolute Lymphs (auto) 2.26 Nucleated RBC % 0.5 Differential Comment SCANNED RBC Morphology N CHROM Anisocytosis 1+ Macrocytosis 1+ Sodium Potassium Chloride Carbon Dioxide Anion Gap BUN Creatinine Estim Creat Clear Calc Est GFR (MDRD) Af Amer Est GFR (MDRD) Non-Af BUN/Creatinine Ratio Glucose Lactic Acid Calcium Magnesium Total Bilirubin AST ALT Alkaline Phosphatase Troponin I Total Protein Albumin Globulin Albumin/Globulin Ratio TSH Urine Color Yellow Urine Clarity Sl. Cloudy Urine pH 5.0 Ur Specific [place] 1.015 Urine Protein Negative Urine Glucose (UA) Normal Urine Ketones Negative Urine Occult Blood Negative Urine Nitrite Negative Urine Bilirubin Negative Urine Urobilinogen Normal Ur Leukocyte Esterase 100 H Urine RBC 0 SEEN Urine WBC 10-25 SEEN Ur Squamous Epith Cells 0 SEEN Ur Transition Epith Cell 0-5 SEEN Urine Bacteria 0 SEEN Urine Mucus 0 SEEN Urine Opiates Screen NEGATIVE Urine Methadone Screen NEGATIVE Ur Barbiturates Screen NEGATIVE Ur Phencyclidine Scrn NEGATIVE Ur Amphetamines Screen NEGATIVE U Methamphetamin-MDMA NEGATIVE U Benzodiazepines Scrn NEGATIVE Urine Cocaine Screen NEGATIVE U Cannabinoids Screen POSITIVE H Ur Drug Screen Comment POC Glucose 04/18/21 04/18/21 04/18/21 06:25 06:39 12:10 WBC RBC Hgb Hct MCV MCH MCHC RDW Std Deviation RDW Coeff of Arleen Plt Count MPV Immature Gran % (Auto) Neut % (Auto) Lymph % (Auto) Douglas % (Auto) Eos % (Auto) Baso % (Auto) Absolute Neuts (auto) Absolute Lymphs (auto) Nucleated RBC % Differential Comment RBC Morphology Anisocytosis Macrocytosis Sodium 140 Potassium 4.3 Chloride 110 H Carbon Dioxide 27.0 Anion Gap 3 L BUN 15 Creatinine 1.27 Estim Creat Clear Calc 65.72 Est GFR (MDRD) Af Amer 76 Est GFR (MDRD) Non-Af 63 BUN/Creatinine Ratio 11.8 Glucose 101 Lactic Acid Calcium 8.1 L Magnesium Total Bilirubin 0.50 AST 23 ALT 31 Alkaline Phosphatase 77 Troponin I Total Protein 5.7 L Albumin 2.9 L Globulin 2.8 Albumin/Globulin Ratio 1.0 TSH 3.25 Urine Color Urine Clarity Urine pH Ur Specific [place] Urine Protein Urine Glucose (UA) Urine Ketones Urine Occult Blood Urine Nitrite Urine Bilirubin Urine Urobilinogen Ur Leukocyte Esterase Urine RBC Urine WBC Ur Squamous Epith Cells Ur Transition Epith Cell Urine Bacteria Urine Mucus Urine Opiates Screen Urine Methadone Screen Ur Barbiturates Screen Ur Phencyclidine Scrn Ur Amphetamines Screen U Methamphetamin-MDMA U Benzodiazepines Scrn Urine Cocaine Screen U Cannabinoids Screen Ur Drug Screen Comment POC Glucose 108 170 H Radiography Diagnostic Testing: Radiology Impression Chest X-Ray 04/17/21 19:30 IMPRESSION: No acute radiographic abnormalities. Electronically Signed: Thai Duckworth MD at 20:05 EDT Tel , Service support , Chest X-Ray 04/18/21 11:53 IMPRESSION: No acute pulmonary process, no interval change Electronically Signed: Leobardo Atkinson MD at 12:11 EDT , Service support , Physical Exam Const alert, oriented x3 and no apparent distress Orientation / Consciousness: awake, oriented to person, oriented to place and oriented to time HEENT normocephalic and moist oral mucous membranes Eyes PERRL, EOMs intact bilaterally and conjunctivae normal Neck no lymphadenopathy Resp normal respiratory effort Auscultation: wheezes expiratory wheezes Cardio no murmurs Cardio Narrative: Chronic atrial fibrillation, rate controlled Peripheral Pulses: pulses 2+ throughout GI normal to inspection, nondistended, normoactive bowel sounds, non-tender and non-distended Extremity normal to inspection Skin no rashes or lesions noted Lesions: no lesions Rashes: no rashes Trauma: no lacerations or abrasions Neuro oriented x3 Sensorium / Orientation: awake and alert Psych affect normal Assessment & Plan Assessment/Plan (1) Syncope: (2) Acute repetitive seizure: PLAN: 1. Acute recurrent seizure, seizure history-EEG completed, report pending. Continue IV Keppra. Seizure precautions. Brain MRI pending. Following EEG and MRI results, will consult neurology. 2. Transient hypotension-resolved. Suspect secondary to volume depletion. 3. Lactic acidosis-reactive secondary to #1. 4. Acute kidney injury on chronic kidney disease stage II-acute kidney injury resolved with IV fluids. 5. Acute exacerbation of COPD with chronic anoxic respiratory failure-patient on baseline home O2 requirements however reports increased shortness of breath. Wheezing on exam. IV Solu-Medrol. Albuterol DuoNeb aerosols. Chest x-ray unremarkable. 6. Chronic heart failure with preserved ejection fraction- Previous Echocardiogram demonstrates an EF of 70%, pulmonary artery systolic pressure 60 to 65 mmHg. Lasix on hold due to acute kidney injury. 7. CAD with history of CABG and stents-continue aspirin, statin, Plavix, isosorbide, metoprolol, lisinopril. 8. Paroxysmal atrial fibrillation-on aspirin, Plavix, metoprolol, sotalol. 9. Type 2 diabetes [id number] with sliding scale insulin. Continue home insulin regimen. 10. KENNETH-continue home CPAP regimen. 11. Hypertension-stable, continue current regimen with hold parameters. 12. Hyperlipidemia-continue statin, Zetia. 13. Restless leg syndrome-on Requip. 14. Tobacco dependence-encourage cessation 15. Depression/insomnia-continue duloxetine, trazodone. 16. BPH-continue Flomax. DVT prophylaxis- This patient was seen by DIANA Lujan under the supervision of Dr. Levi. Documented by User: Dr. Fidel Stover MD 04/18/21 16:09 Subjective Subjective Patient has a history of seizure and is on gabapentin and pregabalin. Was admitted with seizure while walking and fall on the left elbow with bruise. Patient also had incontinence, postictal confusion. Objective Data Lab / Micro Data Result Diagrams: 04/18/21 06:25 04/18/21 06:25 Physical Exam Narrative General: Alert, Oriented x3, Cooperative HEENT: Atraumatic, PERRLA, EOMI, Normocephalic Oral: No Gingival or Mucosal Lesions/ Ulcerations Neck: Supple, No JVD, Negative Carotid Bruits Lungs: Air entry diminished in bilateral lung bases. No crepitation/rhonchi Cardiovascular: Sinus rhythm, PVC, Normal S1, Normal S2, No murmurs Abdomen: Bowel Sounds Present, Soft, Non Tender, Non-Distended : No renal angle tenderness. No suprapubic tenderness. Extremities: No edema, Capillary Refill Less than 3 Seconds Skin: Bruise over left elbow. Musculoskeletal: No Tenderness to Palpation of Joints or Extremities Neurological: Cranial nerves II-XII grossly intact, Deep Tendon Reflexes 2+/4 and Symmetrical, Neuro grossly intact Psych/Mental Status: Normal Affect, Appropriate. Assessment & Plan Assessment/Plan (1) Acute repetitive seizure: PLAN: This patient was seen in conjunction with Alina IVAN. I have independently interviewed and examined the patient and reviewed pertinent history, examination findings, laboratory and plan of management. I have reviewed the note and agree with the documented findings with the few additional points. In brief, patient is admitted for Patient was admitted with rhythmic abnormal movement, postictal confusion, fall, bladder incontinence consistent with breakthrough seizures. Patient states compliance with medications. EEG completed. Scheduled for MRI and then will consult neurology. Patient also had transient hypotension and lactic acidosis which resolved. Coronary artery status post stents, paroxysmal A. fib status post CABG: Patient was last admitted in November 2020 and had cardiac catheter at time which showed previously placed stent in the RCA with 40% in-stent stenosis. Patient follows Dr. Swift. Chronic HFpEF with EF 70% Acute COPD exacerbation with chronic hypoxic respiratory failure: Patient on CPAP. On bronchodilator. Follows in pulmonary clinic. Other comorbidities as mentioned above I have discussed my assessment with Alina IVAN and orders have been reviewed.
--- NOTE | 2021-04-18 14:55 | CHAPLAIN ---
Type of Pastoral Visit _x__ Initial Visit ___ Follow-up Visit ___ On-call Visit ___ General Patient Visit ___ Spiritual Assessment ___ Family Conference ___ Bereavement ___ Rapid Response ___ Code Blue ___ Other (describe below) Pastoral Care Referral From _x__ Patient ___ Family ___ Nurse ___ Physician ___ Auto Battery Builder ___ Music Therapist [employer] ___ Other (describe below) Sacrament/Intervention _x__ Active listening ___ Anointing ___ Restoration ___ Bereavement ___ Communion _x__ Barbara exploration ___ _x__ Life review _x__ Prayer ___ Reconciliation ___ Sacrament of Sick _x__ Supportive presence ___ Wedding ___ Other (describe below) Pastoral Comments patient expresses his barbara beliefs and admits his inconsistencies with life behaviors; seeks prayer and spiritual care support
[2021-04-18] MEDS: Tamsulosin HCl 0.4 MG Capsule PO (16:57)
[2021-04-18 17:36] LABS: Bedside Glucose 179 mg/dL (70-110)
[2021-04-18] MEDS: Sotalol Hydrochloride 80 MG Tablet 120 MG PO (23:27)
[2021-04-18] MEDS: traZODone 100 MG Tablet 150 MG PO (23:28)
[2021-04-18] MEDS: Atorvastatin Calcium 80 MG Tablet PO (23:28)
[2021-04-18] MEDS: Pramipexole Di-HCl 0.25 MG Tablet PO (23:29)
[2021-04-18 23:50] LABS: Bedside Glucose 195 mg/dL (70-110)
[2021-04-19] VITALS (7 sets, daily range): BP systolic 120–144; BP diastolic 65–79; PULSE 54–89; RESP 12–20; TEMP 36.5–36.8; O2SAT 97–98
[2021-04-19] MEDS: oxyCODONE 5 MG Tablet PO ×3 (00:12→12:30)
--- NOTE | 2021-04-19 00:30 | CPS ---
Day shift passed on that patient had own cpap set up in room. When talking to patient they have not brought their own CPAP yet and [id number] set up for patients cpap needs.
[2021-04-19] MEDS: Insulin Lispro 100 UNIT/ML INSULN.PEN SC ×2 (07:06→11:21)
[2021-04-19 07:07] LABS: Absolute Lymphocyte Count 0.62 X10^3/uL (0.83-4.51); Absolute Neutrophil Count 8.4 X10^3/uL (2.0-7.7); Basophil# 0.01 X10^3/uL; Basophil% 0.1 % (0-1); Eosinophil# 0.01 X10^3/uL; Eosinophils% 0.1 % (0-5); Hematocrit 42.4 % (40-54); Lymphocyte # 0.62 X10^3/ul (0.83-4.51); Lymphocyte % 6.7 % (19-41); Mean Corpuscular Hgb 34.6 pg (27.0-32.0); Mean Corpuscular Volume 104.7 fL (80-94); Mean Platelet Vol. 9.5 fl (6.2-12.0); Monocyte# 0.21 X10^3/uL; Monocyte% 2.3 % (0-10); NRBC Flagged by Analyzer 0.3 % (0-5); Neutrophil # 8.36 X10^3/uL (2.7-7.7); Neutrophil % 89.6 % (47-70); POSITIVE MORPHOLOGY YES; Platelet Count 164 K/mm3 (150-450); RBC Distribution Width CV 18.6 % (11.6-14.6); Red Blood Count 4.05 M/mm3 (4.6-6.2); White Blood Count 9.3 K/mm3 (4.4-11.0)
[2021-04-19 07:15] LABS: Bedside Glucose 169 mg/dL (70-110)
[2021-04-19 07:17] LABS: Differential Indicated SCAN CRITERIA MET
[2021-04-19 07:29] LABS: Anisocytosis 1+; Differential Comment SCANNED; Macrocytosis 1+; Red Cell Morphology N CHROM NORMAL (NORM C&C)
[2021-04-19] MEDS: Ipratropium/Albuterol Sulfate 3 ML AMPUL.NEB INHALATION (07:32)
[2021-04-19 07:55] LABS: Anion Gap 5 (5-15); BUN 14 mg/dL (7-18); BUN/Creat Ratio 12.4 RATIO (10-20); Calcium,Total 8.4 mg/dL (8.5-10.1); Chloride 102 mmol/L (98-107); Creatinine, Serum 1.13 mg/dL (0.70-1.30); EST Glomerular Filtration Rate 72 mL/min (>60); Est Glom Filt Rate - Afr Amer 87 mL/min (>60); Estimated Creatinine Clearance 73.86 ml/min; Glucose 166 mg/dL (74-106); Potassium 4.6 mmol/L (3.5-5.1); Sodium Level 136 mmol/L (136-145)
[2021-04-19] MEDS: Pregabalin 50 MG Capsule 100 MG PO (07:58)
[2021-04-19] MEDS: Ferrous Sulfate 325 MG Tablet PO (07:59)
[2021-04-19] MEDS: Gabapentin 600 MG Tablet 1200 MG PO ×2 (07:59→11:21)
[2021-04-19] MEDS: DULoxetine Hcl 60 MG Capsule PO (08:00)
[2021-04-19] MEDS: Sotalol Hydrochloride 80 MG Tablet 120 MG PO (08:00)
[2021-04-19] MEDS: Aspirin E.C. 81 MG Tablet PO (08:00)
[2021-04-19] MEDS: Loratadine 10 MG Tablet PO (08:00)
[2021-04-19] MEDS: Furosemide 80 MG Tablet PO (08:01)
[2021-04-19] MEDS: Pantoprazole Sodium 40 MG Tablet PO (08:01)
[2021-04-19] MEDS: Lisinopril 10 MG Tablet PO (08:01)
[2021-04-19] MEDS: Enoxaparin 40 MG/0.4 ML Syringe SC (08:01)
[2021-04-19] MEDS: Ezetimibe 10 MG Tablet PO (08:01)
[2021-04-19] MEDS: Metoprolol(XL)Succ 100 MG Tablet PO (08:01)
[2021-04-19] MEDS: Clopidogrel Bisulfate 75 MG Tablet PO (08:01)
--- NOTE | 2021-04-19 10:57 | NURSING ---
Addendum entered by Maryam Barraza 04/19/21 12:59: This RN in room to discuss with patient his plan. Still no call from SOC for neuro consult. Pt states that he has to leave and will sign AMA papers. Educated again on the importance of staying for neuro consult, in which patient states that he is headed to his neurologist after he leaves here. Patient signed AMA papers. Alina Platt NP, Aware. Addendum entered by Maryam Barraza 04/19/21 12:04: This RN in patient's room at this time. Informed patient that we have not received a call from SOC yet for consult. Patient states that he can wait until 1230 but that would be the latest. Reiterated that if patient does not do the SOC consult, then he will have to sign AMA papers. Pt voiced understanding. Original Note: Patient is anxious for d/c. DECONTAMINATOR Alina Platt in room to see patient earlier this morning and ordered SOC consult. Educated patient and girlfriend that we would like SOC consult before due to seizure activity. Patient states that he needs to leave at 12 [address] to be. He has also told the DECONTAMINATOR that he has a follow up appointment with his neurologist this afternoon but tells this RN that he needs to go to [facility] and could just walk in to see his neurologist at any time. Pt states that he would just sign out AMA rather than waiting for SOC consult. Educated patient on importance of medications and he states that he would be okay without his medications. Updated DECONTAMINATOR Alina Platt on patient's decision. This RN back in room to talk with patient. Compromised with patient that he will stay until 12 to see if the SOC consult happens, but if not then he will sign out AMA. DECONTAMINATOR updated on patient willing to stay until 12.
--- NOTE | 2021-04-19 11:02 | PCM.DC ---
Discharge Instructions Diet Discharge Diet: Low fat / Low cholesterol Activity Discharge Activity: Return to Normal Activity Dressing / Incision Call your doctor if you observe: Shortness of breath, Dizziness, Chest pain and - (seizure activity) Follow Up Care Test Results: Test results from this visit will be discussed in further detail at your follow-up appointment, if applicable. Discharge Plan Admission Admit Date/Time: 04/17/21 22:16 Primary Reason for Your Visit: Seizure Attending Provider: Fidel Stover Primary Care Provider: Blaze Louis Instructions Additional Instructions / Restrictions: Patient Problems: Altered Health Status related to Hospitalization Patient Goals: *Optimal Level of Health *Keep Appointments *Medication Compliance *Remain SafeFollow up with primary neurologist in 1 week. Discharge Orders/Prescriptions Prescriptions: New prednisone 10 mg tablet See Taper mg PO DAILY Qty: 30 RF: 0 levetiracetam [Keppra] 500 mg tablet 500 mg PO BID Qty: 60 RF: 0 ketorolac 10 mg tablet 10 mg PO BID PRN (Reason: pain) 5 Days Qty: 10 RF: 0 Continued duloxetine 60 mg capsule,delayed release(DR/EC) 60 mg PO DAILY RF: 0 ferrous sulfate 325 mg (65 mg iron) tablet 325 mg PO DAILY RF: 0 trazodone 150 mg tablet 150 mg PO QHS RF: 0 Stiolto Respimat 2.5-2.5 mcg/actuation mist 2 puff INHALATION DAILY RF: 0 ropinirole 0.25 mg tablet 0.5 mg PO QHS RF: 0 pantoprazole [Protonix] 40 mg tablet,delayed release (DR/EC) 40 mg PO DAILY RF: 0 pregabalin [Lyrica] 100 mg capsule 100 mg PO TID RF: 0 aspirin [Adult Aspirin Regimen] 81 mg tablet,delayed release (DR/EC) 81 mg PO DAILY RF: 0 atorvastatin 80 mg tablet 80 mg PO QHS Qty: 90 RF: 3 clopidogrel 75 mg tablet 75 mg PO DAILY Qty: 90 RF: 3 ezetimibe 10 mg tablet 10 mg PO DAILY Qty: 90 RF: 3 isosorbide mononitrate 120 mg tablet extended release 24 hr 120 mg PO DAILY Qty: 90 RF: 3 lisinopril 10 mg tablet 10 mg PO DAILY Qty: 90 RF: 3 metoprolol succinate 100 mg tablet extended release 24 hr 100 mg PO DAILY Qty: 90 RF: 3 sotalol 120 mg tablet 120 mg PO BID Qty: 180 RF: 3 gabapentin 600 MG tablet 1,200 mg PO TIDCM RF: 0 albuterol sulfate 2.5 MG/3 ML solution for nebulization 1 dose IH Q4H PRN PRN (Reason: Sob &/Or Wheezing) RF: 0 nitroglycerin 0.4 MG tablet, sublingual 0.4 mg SL PRN PRN (Reason: chest pain) RF: 0 albuterol sulfate 1 PUFF inhaler 2 puff INHALATION Q6H PRN PRN (Reason: Sob &/Or Wheezing) RF: 0 Loratadine 10 mg PO DAILY RF: 0 (DME) pen needle, diabetic 1 EACH needle 1 ea MC DAILY Qty: 1 RF: 0 budesonide-formoterol 1 INHALER inhaler 2 puff INHALATION BID RF: 0 tamsulosin 0.4 MG capsule 0.4 mg PO DAILY@1730 RF: 0 insulin glargine 100 UNITS/ML insulin pen 20 units SC BREAKFAST RF: 0 furosemide 40 mg tablet 80 mg PO DAILY RF: 0 hydrocodone-acetaminophen 5-325 mg tablet 1 tab PO Q6H PRN (Reason: pain) 3 Days Qty: 10 RF: 0 Referrals / Follow Up: Blaze Louis MD [Primary Care Provider] - In 1 Week Disposition Disposition (needs filled in before D/C Order can be placed): Home, self care
[2021-04-19 11:40] LABS: Bedside Glucose 208 mg/dL (70-110)
--- NOTE | 2021-04-19 12:48 | PCM.DC.SUM ---
Documented by User: Alina Platt NP, [employer] 04/19/21 12:56 Providers Date of Admission: 04/17/21 Date of Discharge: 04/19/21 Primary Care Physician: Dr. Blaze Louis MD Reason For Visit: SEIZURE ACTIVITY Diagnosis Discharge Diagnosis (1) Acute repetitive seizure: Status: Acute Code(s): G40.909 - Epilepsy, unspecified, not intractable, without status epilepticus Medications at Discharge Home Medications gabapentin 1,200 mg PO TIDCM 12/07/15 duloxetine 60 mg capsule,delayed release 60 mg PO DAILY 01/13/18 ferrous sulfate 325 mg (65 mg iron) tablet 325 mg PO DAILY tab 11/26/18 albuterol sulfate 1 dose IH Q4H PRN PRN 11/09/19 albuterol sulfate 2 puff INHALATION Q6H PRN PRN 11/09/19 nitroglycerin 0.4 mg SL PRN PRN 11/09/19 pantoprazole 40 mg tablet,delayed release 40 mg PO DAILY 11/11/19 pregabalin 100 mg capsule 100 mg PO TID cap 11/11/19 ropinirole 0.25 mg tablet 0.5 mg PO QHS 11/11/19 tiotropium 2.5 mcg-olodaterol 2.5 mcg/actuation mist for inhalation 2 puff INHALATION DAILY 11/11/19 trazodone 150 mg tablet 150 mg PO QHS 11/11/19 Loratadine 10 mg PO DAILY 04/30/20 aspirin 81 mg tablet,delayed release 81 mg PO DAILY 05/24/20 pen needle, diabetic #1 box 11/16/20 budesonide-formoterol 2 puff INHALATION BID 12/18/20 insulin glargine 20 units SC BREAKFAST 12/18/20 tamsulosin 0.4 mg PO DAILY@1730 12/18/20 atorvastatin 80 mg tablet 80 mg PO QHS #90 tab 01/29/21 clopidogrel 75 mg tablet 75 mg PO DAILY #90 tab 01/29/21 ezetimibe 10 mg tablet 10 mg PO DAILY #90 tab 01/29/21 isosorbide mononitrate 120 mg tablet,extended release 24 hr 120 mg PO DAILY #90 tab 01/29/21 lisinopril 10 mg tablet 10 mg PO DAILY #90 tab 01/29/21 metoprolol succinate 100 mg tablet,extended release 24 hr 100 mg PO DAILY #90 tab 01/29/21 sotalol 120 mg tablet 120 mg PO BID #180 tab 01/29/21 furosemide 80 mg PO DAILY 04/12/21 hydrocodone-acetaminophen 1 tab PO Q6H PRN 3 Days #10 tab 04/12/21 ketorolac 10 mg PO BID PRN 5 Days #10 tab 04/19/21 levetiracetam [Keppra] 500 mg PO BID #60 tab 04/19/21 prednisone See Taper PO DAILY #30 tab 04/19/21 Hospital Course Operations None Procedures Electroencephalogram Summary of Care Provided Minutes Spent on Discharge: 35 Hospital Course: Patient is a 55-year-old male admitted 04/17/2021 due to intermittent syncopal episodes, suspected recurrent seizures. 1. Acute recurrent seizure, seizure history-EEG normal. IV Keppra during admission. MRI of brain unremarkable. Patient reports a history of seizures however he is not on any AEDs. SOC consult placed however patient signed out AMA prior to consult. Did send prescription for Keppra 500 mg twice daily and patient states he will follow-up with his primary neurologist at discharge. 2. Transient hypotension-resolved. Suspect secondary to volume depletion. 3. Lactic acidosis-reactive secondary to #1. 4. Acute kidney injury on chronic kidney disease stage II-acute kidney injury resolved with IV fluids. 5. Acute exacerbation of COPD with chronic anoxic respiratory failure-patient on baseline home O2 requirements however reports increased shortness of breath. Chest x-ray unremarkable. Patient signed out AMA however did send Rx for prednisone taper for COPD exacerbation. 6. Chronic heart failure with preserved ejection fraction- Previous Echocardiogram demonstrates an EF of 70%, pulmonary artery systolic pressure 60 to 65 mmHg. Continue Lasix at discharge 7. CAD with history of CABG and stents-continue aspirin, statin, Plavix, isosorbide, metoprolol, lisinopril. 8. Paroxysmal atrial fibrillation-on aspirin, Plavix, metoprolol, sotalol. 9. Type 2 diabetes atnwyuch-[id number]-[id number] with sliding scale insulin. Continue home insulin regimen. 10. KENNETH-continue home CPAP regimen. 11. Hypertension-stable, continue current regimen with hold parameters. 12. Hyperlipidemia-continue statin, Zetia. 13. Restless leg syndrome-on Requip. 14. Tobacco dependence-encourage cessation 15. Depression/insomnia-continue duloxetine, trazodone. 16. BPH-continue Flomax. Physical Exam Const alert, oriented x3 and no apparent distress Orientation / Consciousness: awake, oriented to person, oriented to place and oriented to time HEENT normocephalic and moist oral mucous membranes Eyes PERRL, EOMs intact bilaterally and conjunctivae normal Neck no lymphadenopathy Resp normal respiratory effort Auscultation: wheezes expiratory wheezes Cardio no murmurs Cardio Narrative: Chronic atrial fibrillation, rate controlled Peripheral Pulses: pulses 2+ throughout GI normal to inspection, nondistended, normoactive bowel sounds, non-tender and non-distended Extremity normal to inspection Skin no rashes or lesions noted Lesions: no lesions Rashes: no rashes Trauma: no lacerations or abrasions Neuro oriented x3 Sensorium / Orientation: awake and alert Psych affect normal Patient seen and examined prior to discharge. Physical assessment as noted above. Patient is stable for discharge with follow up recommendations as noted above. This patient was seen by DIANA Lujan under the supervision of Dr. Stover. ABG / Lab / Microbiology Data Result Diagrams: 04/19/21 06:47 04/19/21 06:47 Laboratory: Laboratory Results - last 24 hr 04/18/21 04/18/21 04/19/21 16:50 23:19 06:47 WBC 9.3 RBC 4.05 L Hgb 14.0 Hct 42.4 MCV 104.7 H MCH 34.6 H MCHC 33.0 RDW Std Deviation 71.0 H RDW Coeff of Arleen 18.6 H Plt Count 164 MPV 9.5 Immature Gran % (Auto) 1.200 H Neut % (Auto) 89.6 H Lymph % (Auto) 6.7 L [place] % (Auto) 2.3 Eos % (Auto) 0.1 Baso % (Auto) 0.1 Absolute Neuts (auto) 8.4 H Absolute Lymphs (auto) 0.62 L Nucleated RBC % 0.3 Differential Comment SCANNED RBC Morphology N CHROM Anisocytosis 1+ Macrocytosis 1+ Sodium Potassium Chloride Carbon Dioxide Anion Gap BUN Creatinine Estim Creat Clear Calc Est GFR (MDRD) Af Amer Est GFR (MDRD) Non-Af BUN/Creatinine Ratio Glucose Calcium POC Glucose 179 H 195 H 04/19/21 04/19/21 04/19/21 06:47 07:05 11:19 WBC RBC Hgb Hct MCV MCH MCHC RDW Std Deviation RDW Coeff of Arleen Plt Count MPV Immature Gran % (Auto) Neut % (Auto) Lymph % (Auto) [place] % (Auto) Eos % (Auto) Baso % (Auto) Absolute Neuts (auto) Absolute Lymphs (auto) Nucleated RBC % Differential Comment RBC Morphology Anisocytosis Macrocytosis Sodium 136 Potassium 4.6 Chloride 102 Carbon Dioxide 29.0 Anion Gap 5 BUN 14 Creatinine 1.13 Estim Creat Clear Calc 73.86 Est GFR (MDRD) Af Amer 87 Est GFR (MDRD) Non-Af 72 BUN/Creatinine Ratio 12.4 Glucose 166 H Calcium 8.4 L POC Glucose 169 H 208 H Radiography Diagnostic Testing: Radiology Impression Brain MRI 04/18/21 05:55 IMPRESSION: Involutional changes of the brain, as described above. Electronically Signed: Zeke Gardner MD at 16:41 EDT , Service support , D/C Instructions Discharge Diet: Low fat / Low cholesterol Discharge Activity: Return to Normal Activity Call your doctor if you observe: Shortness of breath, Dizziness, Chest pain and - (seizure activity) Meaningful Use Info Meaningful Use Diagnoses (Choose all that apply): None applicable Discharge Plan Admission Admit Date/Time: 04/17/21 22:16 Primary Reason for Your Visit: Seizure Attending Provider: Fidel Stover Primary Care Provider: Blaze Louis Instructions Additional Instructions / Restrictions: Patient Problems: Altered Health Status related to Hospitalization Patient Goals: *Optimal Level of Health *Keep Appointments *Medication Compliance *Remain SafeFollow up with primary neurologist in 1 week. Discharge Orders/Prescriptions Prescriptions: New prednisone 10 mg tablet See Taper mg PO DAILY Qty: 30 RF: 0 levetiracetam [Keppra] 500 mg tablet 500 mg PO BID Qty: 60 RF: 0 ketorolac 10 mg tablet 10 mg PO BID PRN (Reason: pain) 5 Days Qty: 10 RF: 0 Continued duloxetine 60 mg capsule,delayed release(DR/EC) 60 mg PO DAILY RF: 0 ferrous sulfate 325 mg (65 mg iron) tablet 325 mg PO DAILY RF: 0 trazodone 150 mg tablet 150 mg PO QHS RF: 0 Stiolto Respimat 2.5-2.5 mcg/actuation mist 2 puff INHALATION DAILY RF: 0 ropinirole 0.25 mg tablet 0.5 mg PO QHS RF: 0 pantoprazole [Protonix] 40 mg tablet,delayed release (DR/EC) 40 mg PO DAILY RF: 0 pregabalin [Lyrica] 100 mg capsule 100 mg PO TID RF: 0 aspirin [Adult Aspirin Regimen] 81 mg tablet,delayed release (DR/EC) 81 mg PO DAILY RF: 0 atorvastatin 80 mg tablet 80 mg PO QHS Qty: 90 RF: 3 clopidogrel 75 mg tablet 75 mg PO DAILY Qty: 90 RF: 3 ezetimibe 10 mg tablet 10 mg PO DAILY Qty: 90 RF: 3 isosorbide mononitrate 120 mg tablet extended release 24 hr 120 mg PO DAILY Qty: 90 RF: 3 lisinopril 10 mg tablet 10 mg PO DAILY Qty: 90 RF: 3 metoprolol succinate 100 mg tablet extended release 24 hr 100 mg PO DAILY Qty: 90 RF: 3 sotalol 120 mg tablet 120 mg PO BID Qty: 180 RF: 3 gabapentin 600 MG tablet 1,200 mg PO TIDCM RF: 0 albuterol sulfate 2.5 MG/3 ML solution for nebulization 1 dose IH Q4H PRN PRN (Reason: Sob &/Or Wheezing) RF: 0 nitroglycerin 0.4 MG tablet, sublingual 0.4 mg SL PRN PRN (Reason: chest pain) RF: 0 albuterol sulfate 1 PUFF inhaler 2 puff INHALATION Q6H PRN PRN (Reason: Sob &/Or Wheezing) RF: 0 Loratadine 10 mg PO DAILY RF: 0 (DME) pen needle, diabetic 1 EACH needle 1 ea MC DAILY Qty: 1 RF: 0 budesonide-formoterol 1 INHALER inhaler 2 puff INHALATION BID RF: 0 tamsulosin 0.4 MG capsule 0.4 mg PO DAILY@1730 RF: 0 insulin glargine 100 UNITS/ML insulin pen 20 units SC BREAKFAST RF: 0 furosemide 40 mg tablet 80 mg PO DAILY RF: 0 hydrocodone-acetaminophen 5-325 mg tablet 1 tab PO Q6H PRN (Reason: pain) 3 Days Qty: 10 RF: 0 Referrals / Follow Up: Blaze Louis MD [Primary Care Provider] - In 1 Week Disposition Disposition (needs filled in before D/C Order can be placed): Home, self care Documented by User: Dr. Fidel Stover MD 04/19/21 16:26 Providers Date of Admission: 04/17/21 Reason For Visit: SEIZURE ACTIVITY Medications at Discharge Home Medications gabapentin 1,200 mg PO TIDCM 12/07/15 duloxetine 60 mg capsule,delayed release 60 mg PO DAILY 01/13/18 ferrous sulfate 325 mg (65 mg iron) tablet 325 mg PO DAILY tab 11/26/18 albuterol sulfate 1 dose IH Q4H PRN PRN 11/09/19 albuterol sulfate 2 puff INHALATION Q6H PRN PRN 11/09/19 nitroglycerin 0.4 mg SL PRN PRN 11/09/19 pantoprazole 40 mg tablet,delayed release 40 mg PO DAILY 11/11/19 pregabalin 100 mg capsule 100 mg PO TID cap 11/11/19 ropinirole 0.25 mg tablet 0.5 mg PO QHS 11/11/19 tiotropium 2.5 mcg-olodaterol 2.5 mcg/actuation mist for inhalation 2 puff INHALATION DAILY 11/11/19 trazodone 150 mg tablet 150 mg PO QHS 11/11/19 Loratadine 10 mg PO DAILY 04/30/20 aspirin 81 mg tablet,delayed release 81 mg PO DAILY 05/24/20 pen needle, diabetic #1 box 11/16/20 budesonide-formoterol 2 puff INHALATION BID 12/18/20 insulin glargine 20 units SC BREAKFAST 12/18/20 tamsulosin 0.4 mg PO DAILY@1730 12/18/20 atorvastatin 80 mg tablet 80 mg PO QHS #90 tab 01/29/21 clopidogrel 75 mg tablet 75 mg PO DAILY #90 tab 01/29/21 ezetimibe 10 mg tablet 10 mg PO DAILY #90 tab 01/29/21 isosorbide mononitrate 120 mg tablet,extended release 24 hr 120 mg PO DAILY #90 tab 01/29/21 lisinopril 10 mg tablet 10 mg PO DAILY #90 tab 01/29/21 metoprolol succinate 100 mg tablet,extended release 24 hr 100 mg PO DAILY #90 tab 01/29/21 sotalol 120 mg tablet 120 mg PO BID #180 tab 01/29/21 furosemide 80 mg PO DAILY 04/12/21 hydrocodone-acetaminophen 1 tab PO Q6H PRN 3 Days #10 tab 04/12/21 ketorolac 10 mg PO BID PRN 5 Days #10 tab 04/19/21 levetiracetam [Keppra] 500 mg PO BID #60 tab 04/19/21 prednisone See Taper PO DAILY #30 tab 04/19/21 Hospital Course Summary of Care Provided Hospital Course: ?This patient was seen in conjunction with Alina IVAN.? I have independently interviewed and examined the patient and reviewed pertinent history, examination findings, laboratory and plan of management.? I have? reviewed the note and agree with the documented findings with the few? additional points. In brief, patient is admitted for Patient was admitted with rhythmic abnormal movement, postictal confusion, fall, bladder incontinence consistent with breakthrough seizures.? Patient states compliance with medications.? EEG completed.? Patient had MRI brain which did not show acute abnormality. EEG did not show epileptiform discharges. 90% of recording with a stage II sleep. No lateralizing sign. Patient did not stay for SOC consult but signed AMA. Patient also had transient hypotension and lactic acidosis which resolved. Coronary artery status post stents, paroxysmal A. fib status post CABG: Patient was last admitted in November 2020 and had cardiac catheter at time which showed previously placed stent in the RCA with 40% in-stent stenosis.? Patient follows Dr. Swift.? Chronic HFpEF with EF 70% Acute COPD exacerbation with chronic hypoxic respiratory failure: Patient on CPAP.? On bronchodilator.? Follows in pulmonary clinic. Other comorbidities as mentioned above Signed AMA. I have discussed my assessment with Alina IVAN and orders have been reviewed.? Physical Exam Narrative In the morning, patient wanted to sign AMA and was tried to convince but finally signed AMA before seeing neurologist. MRI brain does not show acute abnormality. EEG did not show epileptic discharges. General: Alert, Oriented x3, Cooperative HEENT: Atraumatic, PERRLA, EOMI, Normocephalic Oral: No Gingival or Mucosal Lesions/ Ulcerations Neck: Supple, No JVD, Negative Carotid Bruits Lungs: Air entry diminished in bilateral lung bases. No crepitation/rhonchi Cardiovascular: Sinus rhythm, PVC, Normal S1, Normal S2, No murmurs Abdomen: Bowel Sounds Present, Soft, Non Tender, Non-Distended : No renal angle tenderness. No suprapubic tenderness. Extremities: No edema, Capillary Refill Less than 3 Seconds Skin: Bruise over left elbow. Musculoskeletal: No Tenderness to Palpation of Joints or Extremities Neurological: Cranial nerves II-XII grossly intact, Deep Tendon Reflexes 2+/4 and Symmetrical, Neuro grossly intact Psych/Mental Status: Normal Affect, Appropriate. ABG / Lab / Microbiology Data Result Diagrams: 04/19/21 06:47 04/19/21 06:47 Discharge Plan Admission Admit Date/Time: 04/17/21 22:16 Primary Reason for Your Visit: Seizure Attending Provider: Fidel Stover Primary Care Provider: Blaze Louis Instructions Additional Instructions / Restrictions: Patient Problems: Altered Health Status related to Hospitalization Patient Goals: *Optimal Level of Health *Keep Appointments *Medication Compliance *Remain SafeFollow up with primary neurologist in 1 week. Discharge Orders/Prescriptions Prescriptions: New prednisone 10 mg tablet See Taper mg PO DAILY Qty: 30 RF: 0 levetiracetam [Keppra] 500 mg tablet 500 mg PO BID Qty: 60 RF: 0 ketorolac 10 mg tablet 10 mg PO BID PRN (Reason: pain) 5 Days Qty: 10 RF: 0 Continued duloxetine 60 mg capsule,delayed release(DR/EC) 60 mg PO DAILY RF: 0 ferrous sulfate 325 mg (65 mg iron) tablet 325 mg PO DAILY RF: 0 trazodone 150 mg tablet 150 mg PO QHS RF: 0 Stiolto Respimat 2.5-2.5 mcg/actuation mist 2 puff INHALATION DAILY RF: 0 ropinirole 0.25 mg tablet 0.5 mg PO QHS RF: 0 pantoprazole [Protonix] 40 mg tablet,delayed release (DR/EC) 40 mg PO DAILY RF: 0 pregabalin [Lyrica] 100 mg capsule 100 mg PO TID RF: 0 aspirin [Adult Aspirin Regimen] 81 mg tablet,delayed release (DR/EC) 81 mg PO DAILY RF: 0 atorvastatin 80 mg tablet 80 mg PO QHS Qty: 90 RF: 3 clopidogrel 75 mg tablet 75 mg PO DAILY Qty: 90 RF: 3 ezetimibe 10 mg tablet 10 mg PO DAILY Qty: 90 RF: 3 isosorbide mononitrate 120 mg tablet extended release 24 hr 120 mg PO DAILY Qty: 90 RF: 3 lisinopril 10 mg tablet 10 mg PO DAILY Qty: 90 RF: 3 metoprolol succinate 100 mg tablet extended release 24 hr 100 mg PO DAILY Qty: 90 RF: 3 sotalol 120 mg tablet 120 mg PO BID Qty: 180 RF: 3 gabapentin 600 MG tablet 1,200 mg PO TIDCM RF: 0 albuterol sulfate 2.5 MG/3 ML solution for nebulization 1 dose IH Q4H PRN PRN (Reason: Sob &/Or Wheezing) RF: 0 nitroglycerin 0.4 MG tablet, sublingual 0.4 mg SL PRN PRN (Reason: chest pain) RF: 0 albuterol sulfate 1 PUFF inhaler 2 puff INHALATION Q6H PRN PRN (Reason: Sob &/Or Wheezing) RF: 0 Loratadine 10 mg PO DAILY RF: 0 (DME) pen needle, diabetic 1 EACH needle 1 ea MC DAILY Qty: 1 RF: 0 budesonide-formoterol 1 INHALER inhaler 2 puff INHALATION BID RF: 0 tamsulosin 0.4 MG capsule 0.4 mg PO DAILY@1730 RF: 0 insulin glargine 100 UNITS/ML insulin pen 20 units SC BREAKFAST RF: 0 furosemide 40 mg tablet 80 mg PO DAILY RF: 0 hydrocodone-acetaminophen 5-325 mg tablet 1 tab PO Q6H PRN (Reason: pain) 3 Days Qty: 10 RF: 0 Referrals / Follow Up: Blaze Louis MD [Primary Care Provider] - In 1 Week Disposition Disposition (needs filled in before D/C Order can be placed): Home, self care Visit Charges Inpatient E&M: 50473 Disch Hosp
--- NOTE | 2021-04-19 13:49 | PHA.DC.MR ---
Pharmacy Service has performed discharge medication reconciliation for this patient. The patient's discharge medication list was reviewed for discrepancies and discrepancies were resolved. Medication information sheets prepared but patient already gone when I went to admissions counselor. Home Medications gabapentin 1,200 mg PO TIDCM 12/07/15 duloxetine 60 mg capsule,delayed release 60 mg PO DAILY 01/13/18 ferrous sulfate 325 mg (65 mg iron) tablet 325 mg PO DAILY tab 11/26/18 albuterol sulfate 1 dose IH Q4H PRN PRN 11/09/19 albuterol sulfate 2 puff INHALATION Q6H PRN PRN 11/09/19 nitroglycerin 0.4 mg SL PRN PRN 11/09/19 pantoprazole 40 mg tablet,delayed release 40 mg PO DAILY 11/11/19 pregabalin 100 mg capsule 100 mg PO TID cap 11/11/19 ropinirole 0.25 mg tablet 0.5 mg PO QHS 11/11/19 tiotropium 2.5 mcg-olodaterol 2.5 mcg/actuation mist for inhalation 2 puff INHALATION DAILY 11/11/19 trazodone 150 mg tablet 150 mg PO QHS 11/11/19 Loratadine 10 mg PO DAILY 04/30/20 aspirin 81 mg tablet,delayed release 81 mg PO DAILY 05/24/20 pen needle, diabetic #1 box 11/16/20 budesonide-formoterol 2 puff INHALATION BID 12/18/20 insulin glargine 20 units SC BREAKFAST 12/18/20 tamsulosin 0.4 mg PO DAILY@1730 12/18/20 atorvastatin 80 mg tablet 80 mg PO QHS #90 tab 01/29/21 clopidogrel 75 mg tablet 75 mg PO DAILY #90 tab 01/29/21 ezetimibe 10 mg tablet 10 mg PO DAILY #90 tab 01/29/21 isosorbide mononitrate 120 mg tablet,extended release 24 hr 120 mg PO DAILY #90 tab 01/29/21 lisinopril 10 mg tablet 10 mg PO DAILY #90 tab 01/29/21 metoprolol succinate 100 mg tablet,extended release 24 hr 100 mg PO DAILY #90 tab 01/29/21 sotalol 120 mg tablet 120 mg PO BID #180 tab 01/29/21 furosemide 80 mg PO DAILY 04/12/21 hydrocodone-acetaminophen 1 tab PO Q6H PRN 3 Days #10 tab 04/12/21 ketorolac 10 mg PO BID PRN 5 Days #10 tab 04/19/21 levetiracetam [Keppra] 500 mg PO BID #60 tab 04/19/21 prednisone See Taper PO DAILY #30 tab 04/19/21
== END 2021-04-19 11:05 | disposition left against medical advice (07) ==
LOC: ED 19:20 → PCU 22:49
PROVIDERS: Nurse Practitioner Family; Admitting Provider Family Medicine; Emergency Provider Emergency Medicine; PCP Family Medicine; Visit Provider Internal Medicine
DX: G40.909 Epilepsy, unspecified, not intractable, without status epilepticus (principal); I25.10 Atherosclerotic heart disease of native coronary artery without angina pectoris; N18.2 Chronic kidney disease, stage 2 (mild); I13.0 Hypertensive heart and chronic kidney disease with heart failure and stage 1 through stage 4 chronic kidney disease, or unspecified chronic kidney disease; E11.51 Type 2 diabetes mellitus with diabetic peripheral angiopathy without gangrene; E11.22 Type 2 diabetes mellitus with diabetic chronic kidney disease; I48.0 Paroxysmal atrial fibrillation; G47.33 Obstructive sleep apnea (adult) (pediatric); E78.5 Hyperlipidemia, unspecified; I48.3 Typical atrial flutter; F17.210 Nicotine dependence, cigarettes, uncomplicated; E11.40 Type 2 diabetes mellitus with diabetic neuropathy, unspecified; J96.11 Chronic respiratory failure with hypoxia; J44.1 Chronic obstructive pulmonary disease with (acute) exacerbation; N40.0 Benign prostatic hyperplasia without lower urinary tract symptoms; G25.81 Restless legs syndrome; I50.32 Chronic diastolic (congestive) heart failure; E87.2 Acidosis; I95.9 Hypotension, unspecified; F41.9 Anxiety disorder, unspecified; F32.9 Major depressive disorder, single episode, unspecified; Z79.899 Other long term (current) drug therapy; Z79.4 Long term (current) use of insulin; Z79.82 Long term (current) use of aspirin; Z86.73 Personal history of transient ischemic attack (TIA), and cerebral infarction without residual deficits; Z79.01 Long term (current) use of anticoagulants; Z79.02 Long term (current) use of antithrombotics/antiplatelets
CPT/HCPCS: 36415; 70551; 71045; 80048; 80053; 80307; 81001; 82962; 83605; 83735; 84443; 84484; 85025; 87040; 93005; 94640; 94660; 95819; 96361; 96365; 96366; 96372; 96375; 96376; 99218; 99285; J7030; A4216; G0378

== ENCOUNTER 2021-05-02 09:24 | Emergency (ER) | payer MEDICAID, SELFPAY ==
[2021-04-17 22:37] VITALS: BMI 31.7
[2021-05-02 09:25] VITALS: BP 137/102; PULSE 97; RESP 15; TEMP 36.1; O2SAT 97; BMI 29.5
--- NOTE | 2021-05-02 09:30 | RAD_ITS ---
STUDY: X-RAY - BILATERAL RIBS WITH CHEST REASON FOR EXAM: Male, 55 years old. trauma TECHNIQUE - RIBS: 4 view(s) of the ribs. TECHNIQUE - CHEST: Single AP portable view of the chest. COMPARISON: None. FINDINGS - RIBS : Cortical irregularity along the left lateral sixth and seventh rib consistent with minimally displaced fractures as noted. FINDINGS - CHEST: Sternotomy wires are midline. The lungs are clear and expanded. There is no demonstrated pleural abnormality. Normal size heart. Normal mediastinum and ranjit. Normal visualized pulmonary arteries. Normal visualized aortic arch and descending thoracic aorta. Normal visualized thoracic spine. Normal visualized ribs, clavicles, and shoulders. There is no demonstrated abnormality of the visualized soft tissue structures of the upper abdomen. RAD/Ribs [place] Min 4V w/PA Chest IMPRESSION: RIBS: Minimal displaced left lateral sixth and seventh rib fractures. CHEST: No evidence of acute cardiopulmonary process. Electronically Signed: [place] Knott DO at 10:20 EDT , Service support ,
--- NOTE | 2021-05-02 09:30 | RAD_ITS ---
STUDY: X-RAY - LEFT FOOT CLINICAL: Male, 55 years old. injury TECHNIQUE: 3 view(s) of the foot. COMPARISON: None. FINDINGS: There is demineralization of the rear and midfoot bones. Normal visualized subtalar, talonavicular, calcaneocuboid, tarsal and tarsometatarsal articulations. There is a lucency of the mid fifth metatarsal consistent with minimally displaced fracture. Diffuse demineralization is present. Normal metatarsophalangeal joint of the great toe. Normal tibial and fibular sesamoid bones. Normal interphalangeal joint of the great toe. Normal phalanges of the great toe. Normal second through fifth metatarsophalangeal joints. Normal interphalangeal joints and phalanges of the lesser toes. The soft tissue structures are unremarkable. RAD/Foot min 3 Views IMPRESSION: Minimally displaced fifth metatarsal fracture. Electronically Signed: [place] Knott DO at 10:21 EDT , Service support ,
--- NOTE | 2021-05-02 09:30 | RAD_ITS ---
STUDY: X-RAY - LEFT ANKLE REASON FOR EXAM: Male, 55 years old. injury TECHNIQUE: 3 view(s) of the ankle. COMPARISON: None. FINDINGS: Demineralized distal tibia and fibula. Normal medial and lateral malleoli. Normal tibiotalar articulation and ankle mortise. Old injury of the distal tibia and fibula with intramedullary senait of the tibia noted showing no evidence of hardware failure. Demineralized talus and calcaneus. The visualized subtalar, talonavicular, calcaneocuboid and tarsal articulations are normal. The soft tissue structures are unremarkable. RAD/Ankle min 3 Views IMPRESSION: Prosthesis and old injuries as above with diffuse demineralization, otherwise no evidence of underlying acute injury. Electronically Signed: [place] Knott DO at 10:22 EDT , Service support ,
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
[2021-05-02] MEDS: HYDROcodone Bitartrate/Apap 5/325 Tablet PO ×2 (09:35→11:02)
[2021-05-02 10:56] VITALS: BP 126/82; PULSE 97; RESP 16; TEMP 37.1; O2SAT 99
== END 2021-05-02 11:03 | disposition home or self-care (01) ==
LOC: ED 10:36
PROVIDERS: Emergency Provider Emergency Medicine; PCP Family Medicine
DX: S22.42XA Multiple fractures of ribs, left side, initial encounter for closed fracture (principal); S62.309A Unspecified fracture of unspecified metacarpal bone, initial encounter for closed fracture; F17.210 Nicotine dependence, cigarettes, uncomplicated; E11.51 Type 2 diabetes mellitus with diabetic peripheral angiopathy without gangrene; I25.810 Atherosclerosis of coronary artery bypass graft(s) without angina pectoris; I48.0 Paroxysmal atrial fibrillation; J44.9 Chronic obstructive pulmonary disease, unspecified; E78.5 Hyperlipidemia, unspecified; G40.909 Epilepsy, unspecified, not intractable, without status epilepticus; Z79.4 Long term (current) use of insulin; Z79.52 Long term (current) use of systemic steroids; Z79.82 Long term (current) use of aspirin; Z79.899 Other long term (current) drug therapy; X58.XXXA Exposure to other specified factors, initial encounter
CPT/HCPCS: 71111; 73610; 73630; 99284

== ENCOUNTER 2021-05-05 13:46 | Emergency (ER) | payer MEDICAID, SELFPAY ==
[2021-05-05 13:46] VITALS: BP 89/55; PULSE 105; RESP 16; TEMP 35.6; O2SAT 99; BMI 29.5
--- NOTE | 2021-05-05 13:57 | RAD_ITS ---
HISTORY: fall/injury EXAMINATION/TECHNIQUE: XR Ribs Unilateral W/ PA Chest Min 3 Views: 5 views COMPARISON: 05/02/21 FINDINGS: LINES/DEVICES: Stable loop recording device. LUNGS: No consolidation, edema or effusion. No pneumothorax. MEDIASTINUM AND CARDIOVASCULAR STRUCTURES: Cardiac silhouette not enlarged. CABG changes. Central airways and mediastinal contour are unremarkable. RIBS AND OSSEOUS STRUCTURES: Redemonstration of fractures left sixth and seventh ribs laterally. Minimally displaced fracture left fourth rib laterally demonstrated. RAD/Ribs Uni Min 3V w/PA Chest IMPRESSION: Fractures of the left fourth, sixth and seventh ribs. at 1519 Reported and signed by: Nader Fenton MD Electronically Signed: Nader Fenton MD at 15:18 EDT Tel , Service support ,
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
[2021-05-05] MEDS: Ondansetron ODT 4 MG Tablet 8 MG PO (14:06)
[2021-05-05] MEDS: morphine 10 MG/ML Syringe IM (14:06)
[2021-05-05 15:56] VITALS: BP 103/57
== END 2021-05-05 15:56 | disposition home or self-care (01) ==
PROVIDERS: Emergency Provider Emergency Medicine; PCP Family Medicine
DX: S22.42XA Multiple fractures of ribs, left side, initial encounter for closed fracture (principal); F17.210 Nicotine dependence, cigarettes, uncomplicated; I25.810 Atherosclerosis of coronary artery bypass graft(s) without angina pectoris; J44.9 Chronic obstructive pulmonary disease, unspecified; E78.5 Hyperlipidemia, unspecified; I48.0 Paroxysmal atrial fibrillation; E11.51 Type 2 diabetes mellitus with diabetic peripheral angiopathy without gangrene; W01.0XXA Fall on same level from slipping, tripping and stumbling without subsequent striking against object, initial encounter; Z79.82 Long term (current) use of aspirin; Z79.4 Long term (current) use of insulin; Z79.899 Other long term (current) drug therapy
CPT/HCPCS: 71101; 96372; 99282

== ENCOUNTER → 2021-05-14 09:24 | Outpatient (CLI) | payer MEDICAID, SELFPAY ==
[2021-05-05 13:46] VITALS: BMI 29.5
--- NOTE | 2021-05-14 09:33 | RAD_ITS ---
STUDY: X-RAY - LEFT FOOT CLINICAL: Male, 55 years old. FRACTURE OF 5TH METATARSAL TECHNIQUE: 3 view(s) of the foot. COMPARISON: 05/02/2021 FINDINGS: Normal talus, calcaneus, and tarsal bones. Normal visualized subtalar, talonavicular, calcaneocuboid, tarsal and tarsometatarsal articulations. No change in the nondisplaced spiral fracture of the distal shaft of the fifth metatarsal bone. Normal metatarsophalangeal joint of the great toe. Normal tibial and fibular sesamoid bones. Normal interphalangeal joint of the great toe. Normal phalanges of the great toe. Normal second through fifth metatarsophalangeal joints. Normal interphalangeal joints and phalanges of the lesser toes. The soft tissue structures are unremarkable. RAD/Foot min 3 Views IMPRESSION: No change in the nondisplaced lateral fracture the distal shaft of the fifth metatarsal bone. Electronically Signed: Holden Mckeon MD at 11:26 EDT Tel , Service support ,
== END ==
PROVIDERS: PCP Family Medicine; Referring Provider Family Medicine; Visit Provider Family Medicine
DX: S92.353A Displaced fracture of fifth metatarsal bone, unspecified foot, initial encounter for closed fracture (principal)
CPT/HCPCS: 73630

== ENCOUNTER 2021-05-20 10:52 | Emergency (ER) | payer MEDICAID, SELFPAY ==
[2021-05-20] VITALS (7 sets, daily range): BP systolic 107–138; BP diastolic 55–103; PULSE 62–78; RESP 14–16; TEMP 36.6–36.8; O2SAT 92–98; BMI 29.5
--- NOTE | 2021-05-20 11:04 | EKG12_ITS ---
Test Reason : SUICIDAL Blood Pressure : / mmHG Vent. Rate : 073 BPM Atrial Rate : 073 BPM P-R Int : 166 ms QRS Dur : 084 ms QT Int : 434 ms P-R-T Axes : 078 058 097 degrees QTc Int : 478 ms Normal sinus rhythm Inferior-posterior infarct , cannot be excluded Abnormal ECG Confirmed by COLT LOMELI, TAMMY ([id number]), newspaper copy editor CANDICE ZAZUETA ([id number]) on 05/22/2021 9:18:39 AM Referred By: Confirmed By:TAMMY GREGORY MD
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
[2021-05-20 11:26] LABS: Absolute Lymphocyte Count 2.17 X10^3/uL (0.83-4.51); Absolute Neutrophil Count 6.6 X10^3/uL (2.0-7.7); Basophil# 0.07 X10^3/uL; Basophil% 0.7 % (0-1); Eosinophil# 0.42 X10^3/uL; Eosinophils% 4.1 % (0-5); Hematocrit 40.6 % (40-54); Hemoglobin 13.3 g/dL (13.0-16.5); Lymphocyte # 2.17 X10^3/ul (0.83-4.51); Lymphocyte % 21.1 % (19-41); Mean Corp Hgb Conc 32.8 g/dL (32-36); Mean Corpuscular Hgb 35.2 pg (27.0-32.0); Mean Corpuscular Volume 107.4 fL (80-94); Monocyte# 1.03 X10^3/uL; NRBC Flagged by Analyzer 0 % (0-5); Neutrophil # 6.56 X10^3/uL (2.7-7.7); Neutrophil % 63.7 % (47-70); POSITIVE COUNT YES; Platelet Count 324 K/mm3 (150-450); RBC Distribution Width CV 15.2 % (11.6-14.6); Red Blood Count 3.78 M/mm3 (4.6-6.2); White Blood Count 10.3 K/mm3 (4.4-11.0)
[2021-05-20 11:41] LABS: ALB/GLOB Ratio 0.9 RATIO (0.9-2.4); AST(SGOT) 24 U/L (15-37); Alanine Aminotransfer ALT/SGPT 28 U/L (16-61); Albumin, Serum 3.4 g/dL (3.2-5.0); Alkaline Phosphatase 96 U/L (45-117); Anion Gap 9 (5-15); BUN 26 mg/dL (7-18); BUN/Creat Ratio 13.4 RATIO (10-20); Calcium,Total 9.6 mg/dL (8.5-10.1); Chloride 98 mmol/L (98-107); Creatinine, Serum 1.94 mg/dL (0.70-1.30); EST Glomerular Filtration Rate 38 mL/min (>60); Est Glom Filt Rate - Afr Amer 46 mL/min (>60); Estimated Creatinine Clearance 43.02 ml/min; Globulin 3.9 g/dL (2.2-4.2); Glucose 145 mg/dL (74-106); Potassium 3.7 mmol/L (3.5-5.1); Protein, Total 7.3 g/dL (6.4-8.2); Sodium Level 134 mmol/L (136-145); Thyroid Stim Hormone (TSH) 0.92 uIU/mL (0.358-3.74)
[2021-05-20 11:55] LABS: Differential Indicated SCAN CRITERIA MET
[2021-05-20] MEDS: Aspirin 81 MG TAB.CHEW PO (13:01)
[2021-05-20] MEDS: Lisinopril 10 MG Tablet PO (13:03)
[2021-05-20] MEDS: Sotalol Hydrochloride 80 MG Tablet 120 MG PO (13:03)
[2021-05-20] MEDS: Clopidogrel Bisulfate 75 MG Tablet PO (13:03)
[2021-05-20] MEDS: Pregabalin 50 MG Capsule 100 MG PO (13:03)
[2021-05-20] MEDS: levETIRAcetam 500 MG Tablet PO (13:04)
[2021-05-20] MEDS: Metoprolol(XL)Succ 100 MG Tablet PO (13:04)
[2021-05-20] MEDS: Gabapentin 600 MG Tablet 1200 MG PO ×2 (13:04→18:12)
[2021-05-20] MEDS: Furosemide 80 MG Tablet PO (13:04)
--- NOTE | 2021-05-20 15:02 | NURSING ---
ROSEMARY ALEXANDRA WITH CRISIS; PT NEEDS PLACEMENT
[2021-05-20 15:44] LABS: Bacteria 0 SEEN /hpf (None Seen); Mucous, Urine 0 SEEN /hpf (<or=2+); Red Blood Cells-Urine 0 SEEN /hpf (0-5)
[2021-05-20 15:58] LABS: Glucose, Dipstick Normal (Normal); Ketone-Dipstick Negative (Negative); Leukocyte Esterase-Dipstick 100 /ul (Negative); Nitrite-Dipstick Negative (Negative); Occult Blood-Urine Negative /ul (Negative); Protein-Dipstick 15 mg/dl (Negative); Urine Bilirubin Dipstick Negative (Negative); Urine Urobilinogen Normal (Normal)
[2021-05-20 16:08] LABS: Amphetamine Urine VISTA POSITIVE (<1000 ng/mL); Barbiturate Urine VISTA NEGATIVE (< 200 ng/mL); Benzodiazepine Urine VISTA NEGATIVE (< 200 ng/mL); Cocaine Urine VISTA NEGATIVE (< 300 ng/mL); Ecstacy Urine VISTA POSITIVE (< 500 ng/mL); Methadone Urine VISTA NEGATIVE (< 300 ng/mL); PCP Urine VISTA NEGATIVE (< 25 ng/mL); THC Urine VISTA POSITIVE (< 50 ng/mL); Vista UDS pH Range 6
[2021-05-20 16:26] LABS: Color, Urine Yellow (Yellow); Urine Clarity Sl Cldy (Clear)
[2021-05-20 16:31] LABS: Amorphous Sediment 1+ URATE; Hyaline Cast 0-5 SEEN /lpf (0-5); Squamous Epithelial Cells - UA 0-5 SEEN /hpf (0-5); White Blood Cells 5-10 SEEN /hpf (0-5)
[2021-05-20] MEDS: Ketorolac 60 MG/2 ML Vial IM (16:36)
--- NOTE | 2021-05-20 16:40 | ED.RN ---
PT DEMANDING BETTER PAIN PILLS. STATES IF I WERE AT HOME, I'D GO TO THE STORE AND GET SOME. ADMITS TO BUYING PERCOCET AND VICODIN OFF THE STRE[address] STORE AND USING DAILY. MD UPDATED.
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
--- NOTE | 2021-05-20 18:27 | NURSING ---
ROSEMARY GODFREY WITH CRISIS LOOKS LIKE PT IS PENDING ACCEPTANCE WITH [facility]
--- NOTE | 2021-05-20 19:27 | ED.RN ---
patient has been formly accepted to [facility] pending fax of pink slip
--- NOTE | 2021-05-20 19:37 | ED.RN ---
[facility] called for transport eta 45 mins
== END 2021-05-20 20:54 ==
PROVIDERS: Emergency Provider Emergency Medicine; PCP Family Medicine
DX: F32.9 Major depressive disorder, single episode, unspecified (principal); R45.851 Suicidal ideations; F17.210 Nicotine dependence, cigarettes, uncomplicated; I25.10 Atherosclerotic heart disease of native coronary artery without angina pectoris
CPT/HCPCS: 36415; 80053; 80307; 81001; 82077; 84443; 84484; 85025; 87426; 93005; 96372; 99285

== ENCOUNTER → 2021-06-11 15:24 | Outpatient (CLI) | payer MEDICAID, SELFPAY ==
[2021-05-30 09:31] VITALS: BMI 29.5
[2021-06-11 17:45] LABS: Absolute Lymphocyte Count 1.95 X10^3/uL (0.83-4.51); Absolute Neutrophil Count 6.5 X10^3/uL (2.0-7.7); Basophil# 0.06 X10^3/uL; Basophil% 0.6 % (0-1); Eosinophil# 0.29 X10^3/uL; Eosinophils% 2.9 % (0-5); Hematocrit 38.4 % (40-54); Hemoglobin 12.2 g/dL (13.0-16.5); Lymphocyte # 1.95 X10^3/ul (0.83-4.51); Lymphocyte % 19.3 % (19-41); Mean Corp Hgb Conc 31.8 g/dL (32-36); Mean Corpuscular Hgb 34.6 pg (27.0-32.0); Mean Corpuscular Volume 108.8 fL (80-94); Mean Platelet Vol. 11.1 fl (6.2-12.0); Monocyte# 1.21 X10^3/uL; NRBC Flagged by Analyzer 0 % (0-5); Neutrophil # 6.54 X10^3/uL (2.7-7.7); Neutrophil % 64.7 % (47-70); Platelet Count 242 K/mm3 (150-450); RBC Distribution Width CV 15.4 % (11.6-14.6); RBC Distribution Width SD 62.3 fl (35.1-43.9); Red Blood Count 3.53 M/mm3 (4.6-6.2); White Blood Count 10.1 K/mm3 (4.4-11.0)
[2021-06-11 18:14] LABS: AST(SGOT) 27 U/L (15-37); Alanine Aminotransfer ALT/SGPT 24 U/L (16-61); Albumin, Serum 3.4 g/dL (3.2-5.0); Alkaline Phosphatase 87 U/L (45-117); Anion Gap 8 (5-15); BUN 20 mg/dL (7-18); BUN/Creat Ratio 14.9 RATIO (10-20); Bilirubin, Direct 0.13 mg/dL (0.00-0.30); Calcium,Total 9.1 mg/dL (8.5-10.1); Chloride 104 mmol/L (98-107); Cholesterol 127 mg/dL (200); Creatinine, Serum 1.34 mg/dL (0.70-1.30); EST Glomerular Filtration Rate 59 mL/min (>60); Est Glom Filt Rate - Afr Amer 71 mL/min (>60); Ferritin 52 ng/mL (26-388); Globulin 3.4 g/dL (2.2-4.2); Glucose 126 mg/dL (74-106); High Density Lipoprotein 44 mg/dL; Iron 136 ug/dL (65-175); Iron Binding Capacity,Total 340 ug/dL (250-450); Potassium 3.5 mmol/L (3.5-5.1); Protein, Total 6.8 g/dL (6.4-8.2); Sodium Level 136 mmol/L (136-145); Thyroid Stim Hormone (TSH) 1.13 uIU/mL (0.358-3.74); Triglycerides 120 mg/dL; Very Low Density Lipoprotein 24 mg/dL (5-40)
[2021-06-11 18:17] LABS: Hemoglobin A1c 5.5 % (3.8-5.6)
== END ==
PROVIDERS: PCP Family Medicine; Referring Provider Family Medicine; Visit Provider Family Medicine
DX: N17.9 Acute kidney failure, unspecified (principal); E11.9 Type 2 diabetes mellitus without complications; E61.1 Iron deficiency
CPT/HCPCS: 36415; 80048; 80061; 80076; 82728; 83036; 83540; 83550; 84443; 85025

== ENCOUNTER → 2021-07-19 14:56 | Outpatient (CLI) | payer MEDICAID, SELFPAY ==
[2021-05-30 09:31] VITALS: BMI 29.5
--- NOTE | 2021-07-19 15:00 | CT_ITS ---
CT of the left ankle without contrast INDICATION: Follow-up fracture. COMPARISON: X-ray 05/02/2021 TECHNIQUE: Multiple thin section axial CT images of the left ankle were obtained without the administration of intravenous contrast and filmed in soft tissue and bone windows. Furthermore, multiple sagittal and coronal reconstructions were performed. FINDINGS: Some surgical puneet are seen medially. No abnormal soft tissue mass, lymphadenopathy, fluid collection. An intramedullary senait is seen within the visualized distal tibia. Healed fracture the distal shaft of the fibula is noted. There is a subacute comminuted impacted pylon fracture of the distal tibia distal to the intramedullary senait with some early callus formation. IMPRESSION: Healing subacute impacted comminuted pilon fracture of the distal tibia distal to an intramedullary senait. Electronically Signed: Holden Mckeon MD at 10:56 EDT Tel , Service support , CT/Extremity Lower without Contra
== END ==
PROVIDERS: PCP Family Medicine; Referring Provider Podiatrist; Visit Provider Podiatrist
DX: S82.892A Other fracture of left lower leg, initial encounter for closed fracture (principal)
CPT/HCPCS: 73700

== ENCOUNTER → 2021-09-10 09:54 | Outpatient (CLI) | payer MEDICAID, SELFPAY ==
--- NOTE | 2021-09-10 09:57 | ECHOCS_ITS ---
Reason For Study: Vision Loss Left Eye Procedure This was a 2D Doppler, Color Flow transthoracic echocardiogram. The study was technically difficult. Contrast injection was performed. Bubble study deferred due to previous Negative result. Exam performed in department. Left Ventricle Normal LV size. Moderate concentric left ventricular hypertrophy. Left ventricular systolic function is normal. The estimated ejection fraction is 65 %. Stage 3 diastolic dysfunction. No regional wall motion abnormalities noted. Right Ventricle Normal RV size. Normal systolic function. Atria The left atrium is mildly enlarged. The right atrium is mildly enlarged. Mitral Valve Normal mitral valve. Tricuspid Valve Normal tricuspid valve. Mild to moderate (1-2+) tricuspid valve insufficiency. Pulmonary artery systolic pressure is 50 mmHg. Aortic Valve Trisinus/trileaflet aortic valve. Normal aortic valve. Pulmonic Valve Normal pulmonic valve. Trivial pulmonic valve insufficiency. Great Vessels Normal aortic root. The pulmonary artery is normal size. Normal inferior vena cava. Pericardium/Pleural No pericardial effusion. Medication 22 gauge I.V. with prn adaptor inserted into right arm. Diluted definity 2ml given slow IV push to enhance endocardial definition. MMode/2D Measurements & Calculations LVIDd: 4.9 cm IVSd: 1.4 cm LA dimension: 4.3 cm LVIDs: 3.1 cm LVPWd: 1.6 cm FS: 36.8 % LAV(MOD-bp): 79.7 ml LA A4 area: 25.8 cm2 RA A4 area: 20.6 cm2 LAV(MOD-bp) Indexed: 38.2 ml/m2 LAV(MOD-sp2): 66.6 ml LAV(MOD-sp4): 86.7 ml Time Measurements MV dec time: 0.15 sec Doppler Measurements & Calculations MV E max mat: 92.0 cm/sec Lat Peak E' Mat: 7.4 cm/sec Med Peak E' Mat: 10.9 cm/sec MV A max mat: 24.4 cm/sec E/E' lat: 12.5 E/E' med: 8.4 MV E/A: 3.8 MV V2 max: 106.4 cm/sec MV P1/2t max mat: 104.2 cm/sec Ao V2 max: 135.2 cm/sec MV max P.5 mmHg MV P1/2t: 93.6 msec Ao max P.3 mmHg MV V2 mean: 58.4 cm/sec MV dec slope: 326.1 cm/sec2 MV mean P.7 mmHg MV V2 VTI: 26.8 cm MVA(P1/2t): 2.4 cm2 LV V1 max: 86.8 cm/sec MR max mat: 406.4 cm/sec PA V2 max: 102.4 cm/sec LV V1 max P.0 mmHg MR max P.1 mmHg TR max mat: 333.2 cm/sec TR max P.4 mmHg ECHO/Echo Complete W/ Contrast Interpretation Summary Normal LV size. Left ventricular systolic function is normal. The estimated ejection fraction is 65 %. Stage 3 diastolic dysfunction. Moderate concentric left ventricular hypertrophy. Contrast injection was performed. Ordering Physician: Lele Kincaid Referring Physician: Blaze Louis Performed By: Arvind Montez RCS
--- NOTE | 2021-09-10 09:58 | CDU_ITS ---
Reason For Study: vision loss left eye Rt. Velocities/BP Lt. Velocities/BP Prox CCA 103.4/12.1 cm/sec. Prox CCA 109.7/10.2 cm/sec. Mid CCA 96.9/22.6 cm/sec. Mid CCA 85.1/7.7 cm/sec. Dist CCA 82.5/17.3 cm/sec. Dist CCA 75.3/10.2 cm/sec. Prox ICA 100.3/25.6 cm/sec. Prox ICA 408.4/87.6 cm/sec. Mid ICA 76.2/33.3 cm/sec. Mid ICA 125.8/18.2 cm/sec. Dist ICA 80.6/34.4 cm/sec. Dist ICA 78.7/14.5 cm/sec. Rt. ICA/CCA = 1.0. Lt. ICA/CCA = 4.8. Prox ECA 301.6/20.4 cm/sec. Prox ECA 223.5/18.9 cm/sec. Rt. Vert. 57.5/20.1 cm/sec. Lt. Vert. 52.5 cm/sec. Right Extracranial There is heterogeneous, irregular atherosclerotic plaque noted in the right common carotid artery. There is heterogeneous, irregular atherosclerotic plaque noted in the right internal carotid artery. There is heterogeneous, irregular atherosclerotic plaque noted in the right external carotid artery. Antegrade flow is noted in the right vertebral artery. Left Extracranial There is homogeneous, smooth atherosclerotic plaque noted in the left common carotid artery. There is heterogeneous, irregular atherosclerotic plaque noted in the left internal carotid artery. There is heterogeneous, irregular atherosclerotic plaque noted in the left external carotid artery. Antegrade flow is noted in the left vertebral artery. Procedure Carotid Duplex 16387. This is a Carotid Duplex examination using B-mode, color flow and specral Doppler. The exam was diagnostic. Exam performed in department. Prelim called to Dr. Kincaid's office. VL/Carotid Duplex Ultrasound Interpretation Summary Heterogenous irregular calcific plaque at the proximal right internal carotid a rtery with a less than 50% stenosis Extensive irregular plaque of the proximal right external carotid artery with g reater than 50% stenosis Extensive irregular calcific plaque at the proximal left internal and external carotid with shadowing. Greater than 70% stenosis left proximal internal carotid Greater than 50% stenosis left external carotid Patent antegrade vertebrals bilaterally Findings appear similar to report of March 28, 2019 Ordering Physician: Lele Kincaid Performed By: Manuel Almonte RVT
[2021-09-10 12:21] LABS: Absolute Lymphocyte Count 1.15 X10^3/uL (0.83-4.51); Absolute Neutrophil Count 6.1 X10^3/uL (2.0-7.7); Basophil# 0.07 X10^3/uL; Basophil% 0.8 % (0-1); Eosinophil# 0.25 X10^3/uL; Hematocrit 36.1 % (40-54); Hemoglobin 11.7 g/dL (13.0-16.5); Lymphocyte # 1.15 X10^3/ul (0.83-4.51); Lymphocyte % 13.7 % (19-41); Mean Corp Hgb Conc 32.4 g/dL (32-36); Mean Corpuscular Hgb 30.8 pg (27.0-32.0); Mean Platelet Vol. 9.2 fl (6.2-12.0); Monocyte# 0.72 X10^3/uL; Monocyte% 8.6 % (0-10); NRBC Flagged by Analyzer 0.2 % (0-5); Neutrophil # 6.13 X10^3/uL (2.7-7.7); Neutrophil % 73.3 % (47-70); Platelet Count 248 K/mm3 (150-450); RBC Distribution Width CV 16.8 % (11.6-14.6); RBC Distribution Width SD 57.1 fl (35.1-43.9); White Blood Count 8.4 K/mm3 (4.4-11.0)
== END ==
PROVIDERS: PCP Family Medicine; Referring Provider Ophthalmology; Visit Provider Ophthalmology
DX: H53.122 Transient visual loss, left eye (principal)
CPT/HCPCS: 36415; 85025; 93306; 93880; Q9957; A4216; C8929; J3490

== ENCOUNTER → 2021-09-11 15:39 | Outpatient (CLI) | payer MEDICAID, SELFPAY ==
[2021-09-11 17:43] LABS: Absolute Lymphocyte Count 1.52 X10^3/uL (0.83-4.51); Absolute Neutrophil Count 8.9 X10^3/uL (2.0-7.7); Basophil# 0.05 X10^3/uL; Basophil% 0.4 % (0-1); Eosinophil# 0.19 X10^3/uL; Eosinophils% 1.6 % (0-5); Hematocrit 36.2 % (40-54); Hemoglobin 11.4 g/dL (13.0-16.5); Lymphocyte # 1.52 X10^3/ul (0.83-4.51); Lymphocyte % 12.8 % (19-41); Mean Corp Hgb Conc 31.5 g/dL (32-36); Mean Corpuscular Hgb 30.4 pg (27.0-32.0); Mean Corpuscular Volume 96.5 fL (80-94); Mean Platelet Vol. 9.7 fl (6.2-12.0); Monocyte# 1.06 X10^3/uL; NRBC Flagged by Analyzer 0.3 % (0-5); Neutrophil # 8.94 X10^3/uL (2.7-7.7); Neutrophil % 75.6 % (47-70); Platelet Count 265 K/mm3 (150-450); RBC Distribution Width CV 17.5 % (11.6-14.6); RBC Distribution Width SD 58.4 fl (35.1-43.9); Red Blood Count 3.75 M/mm3 (4.6-6.2); White Blood Count 11.8 K/mm3 (4.4-11.0)
[2021-09-11 17:59] LABS: Vitamin B12 318 pg/mL (211-911); Vitamin D,25 Hydroxy 37.4 ng/mL
[2021-09-11 18:01] LABS: ALB/GLOB Ratio 0.9 RATIO (0.9-2.4); AST(SGOT) 13 U/L (15-37); Alanine Aminotransfer ALT/SGPT 21 U/L (16-61); Albumin, Serum 3.2 g/dL (3.2-5.0); Alkaline Phosphatase 63 U/L (45-117); Anion Gap 12 (5-15); BUN 14 mg/dL (7-18); BUN/Creat Ratio 14.2 RATIO (10-20); Calcium,Total 9.4 mg/dL (8.5-10.1); Chloride 98 mmol/L (98-107); Cholesterol 153 mg/dL (200); Creatinine, Serum 0.98 mg/dL (0.70-1.30); EST Glomerular Filtration Rate 84 mL/min (>60); Est Glom Filt Rate - Afr Amer 101 mL/min (>60); Globulin 3.7 g/dL (2.2-4.2); Glucose 119 mg/dL (74-106); High Density Lipoprotein 64 mg/dL; Protein, Total 6.9 g/dL (6.4-8.2); Sodium Level 137 mmol/L (136-145); Triglycerides 138 mg/dL; Very Low Density Lipoprotein 28 mg/dL (5-40)
[2021-09-11 18:36] LABS: Hemoglobin A1c 6.3 % (3.8-5.6)
[2021-09-19 21:07] LABS: VITAMIN B6 2.2 ug/L (5.3-46.7)
[2021-09-20 08:14] LABS: Vitamin B1, Thiamine 116.6 nmol/L (66.5-200.0)
== END ==
PROVIDERS: PCP Family Medicine; Referring Provider Family Medicine; Visit Provider Family Medicine
DX: E11.9 Type 2 diabetes mellitus without complications (principal); E55.9 Vitamin D deficiency, unspecified; E53.9 Vitamin B deficiency, unspecified
CPT/HCPCS: 36415; 80053; 80061; 82306; 82607; 83036; 84207; 84425; 85025

== ENCOUNTER → 2021-09-30 08:22 | Outpatient (CLI) | payer MEDICAID, SELFPAY ==
--- NOTE | 2021-09-30 08:30 | CT_ITS ---
STUDY: CTA NECK WITH CONTRAST REASON FOR EXAM: Male, 56 years old. CAROTID STENOSIS RADIATION DOSAGE (If Supplied By Facility): CTDIvol = ( 19.45 ) mGy, DLP = ( 652.31 ) mGycm TECHNIQUE: CT angiography with multi-detector data acquisition was performed from the aortic arch to the skull base following intravenous administration of IV 100mL [id number]-370. MIP images were reconstructed from the axial data set. Post-processing of the angiographic images was performed, with multiplanar reformation and 3D reconstruction. Individualized dose optimization techniques were used for this CT. COMPARISON: Comparison is made with prior study dated 03/29/2019. FINDINGS: Prior CABG. AORTIC ARCH: There is atherosclerotic calcific plaque formation of the aortic arch and great vessels arising from the aortic arch, without a hemodynamically significant stenosis. There is a normal origin of the brachiocephalic, left common carotid, and left subclavian arteries. Atherosclerotic calcific plaques at the origin of the left subclavian artery and right brachiocephalic artery. RIGHT CAROTID ARTERIES: Normal right common carotid artery (CCA). Normal right common carotid bulb. There is extensive atherosclerotic plaque formation of the origin of the right internal carotid artery with an estimated stenosis of greater than 70%. Normal visualized cervical portion of the right internal carotid artery. Normal origin of the right external carotid artery (ECA). LEFT CAROTID ARTERIES: Normal left common carotid artery (CCA). Normal left common carotid bulb. There is severe atherosclerotic plaque formation of the origin of the left internal carotid artery with a near complete occlusion. Normal visualized cervical portion of the left internal carotid artery. Normal origin of the left external carotid artery (ECA). VERTEBRAL ARTERIES: Nonvisualization of the left vertebral artery. There is retrograde filling of the distal portion of the left vertebral artery. Scattered calcific plaques are seen in the right vertebral artery. CT/CTA Neck W/WO Contrast IMPRESSION: I grade stenosis at the origin of the right and left internal carotid arteries worse on the left side. Retrograde filling of the right vertebral artery. Electronically Signed: Harry Voss MD at 14:27 EDT , Service support ,
== END ==
PROVIDERS: PCP Family Medicine; Referring Provider Surgery Vascular Surgery; Visit Provider Surgery Vascular Surgery
DX: I65.23 Occlusion and stenosis of bilateral carotid arteries (principal); E11.9 Type 2 diabetes mellitus without complications; F17.200 Nicotine dependence, unspecified, uncomplicated; E78.00 Pure hypercholesterolemia, unspecified; F10.10 Alcohol abuse, uncomplicated; I51.9 Heart disease, unspecified; I70.212 Atherosclerosis of native arteries of extremities with intermittent claudication, left leg; I70.211 Atherosclerosis of native arteries of extremities with intermittent claudication, right leg
CPT/HCPCS: 70498; Q9967

== ENCOUNTER 2021-10-17 16:44 | Observation (INO) | payer MEDICAID, SELFPAY ==
[2021-10-17] VITALS (10 sets, daily range): BP systolic 82–120; BP diastolic 44–70; PULSE 74–114; RESP 18–24; TEMP 36.1–36.9; O2SAT 92–100; BMI 28.6; BMI 27.6
--- NOTE | 2021-10-17 17:00 | EKG12_ITS ---
Test Reason : GEN ILLNESS Blood Pressure : / mmHG Vent. Rate : 075 BPM Atrial Rate : 075 BPM P-R Int : 198 ms QRS Dur : 082 ms QT Int : 434 ms P-R-T Axes : 000 047 092 degrees QTc Int : 484 ms Normal sinus rhythm Normal ECG Confirmed by ZACH LOMELI, TED ([id number]), food expeditor CANDICE ZAZUETA ([id number]) on 10/18/2021 1:58:19 P M Referred By: SERGIO Confirmed By:ALY SERRANO MD
--- NOTE | 2021-10-17 17:01 | EDS_ITS ---
HPI History of Present Illness Chief Complaint: General Illness Detail of Chief Complaint: Low blood pressure and not feeling well Informant: patient Narrative Narrative: Patient presents to the emergency department complaint of low blood pressure that was noted today while at [facility]. Patient was therefore presurgical evaluation to evaluate for carotid endarterectomy. Patient was noted to have low blood pressure so they took him to the emergency department there and he refused to stay in wanted to be closer to home so he came to our department. Patient apparently had a blood pressure of 60/43 there. Patient tells me that he has had some intermittent vomiting over the last couple of days and he has chronic diarrhea. Patient has history of 7 heart attacks with stent placements and prior CABG. Patient continues to smoke. Patient drinks alcohol occasionally. He denies any chest pain or shortness of breath out of the ordinary. Patient had recent surgery on his left lower extremity about 3 weeks ago. Patient denies urinary symptoms. Patient denies fever. He has a chronic cough. He has not been vaccinated against Covid. He denies any Covid exposures. [facility] Medical History (HFpEF) heart failure with preserved ejection fraction Acute hypotension Acute repetitive seizure Atherosclerosis of coronary artery bypass graft without angina pectoris Atherosclerosis of coronary artery of elem heart without angina pectoris Chest wall contusion Chronic anticoagulation Chronic obstructive pulmonary disease Diabetes mellitus Essential hypertension Fall from slip, trip, or stumble Fracture of rib Hyperlipidemia Leg swelling Lower extremity edema Major depression Metatarsal bone fracture Nicotine abuse KENNETH and COPD overlap syndrome Paroxysmal atrial fibrillation Rectal bleeding Secondary pulmonary arterial hypertension Smoking greater than 40 pack years Suicidal ideation Syncope Typical atrial flutter Home Medications gabapentin 1,200 mg PO TIDCM 12/07/15 [History Last Taken 12/18/20 07:00] ferrous sulfate 325 mg (65 mg iron) tablet 325 mg PO DAILY tab 11/26/18 [History Last Taken 12/18/20] albuterol sulfate 1 dose IH Q4H PRN PRN 11/09/19 [History Last Taken 12/18/20] albuterol sulfate 2 puff INHALATION Q6H PRN PRN 11/09/19 [History Last Taken 07/22/20] nitroglycerin 0.4 mg SUBLINGUAL PRN PRN 11/09/19 [History Last Taken 12/18/20] pantoprazole 40 mg tablet,delayed release 40 mg PO DAILY 11/11/19 [History Last Taken 07/22/20] pregabalin 100 mg capsule 100 mg PO TID cap 11/11/19 [History Last Taken 12/18/20 07:00] ropinirole 0.25 mg tablet 0.5 mg PO QHS 11/11/19 [History Last Taken 12/17/20] trazodone 150 mg tablet 150 mg PO QHS 11/11/19 [History Last Taken 12/17/20] Loratadine 10 mg PO DAILY 04/30/20 [History Last Taken 12/18/20] aspirin 81 mg tablet,delayed release 81 mg PO DAILY 05/24/20 [History Last Taken 12/18/20] pen needle, diabetic #1 box 11/16/20 [Rx Last Taken Unknown] insulin glargine 20 units SC BREAKFAST 12/18/20 [History Last Taken 12/18/20 07:00] tamsulosin 0.4 mg PO DAILY@1730 12/18/20 [History Last Taken 12/17/20] atorvastatin 80 mg tablet 80 mg PO QHS #90 tab 01/29/21 [Rx Last Taken Unknown] clopidogrel 75 mg tablet 75 mg PO DAILY #90 tab 01/29/21 [Rx Last Taken Unknown] ezetimibe 10 mg tablet 10 mg PO DAILY #90 tab 01/29/21 [Rx Last Taken Unknown] isosorbide mononitrate 120 mg tablet,extended release 24 hr 120 mg PO DAILY #90 tab 01/29/21 [Rx Last Taken Unknown] lisinopril 10 mg tablet 10 mg PO DAILY #90 tab 01/29/21 [Rx Last Taken Unknown] metoprolol succinate 100 mg tablet,extended release 24 hr 100 mg PO DAILY #90 tab 01/29/21 [Rx Last Taken Unknown] sotalol 120 mg tablet 120 mg PO BID #180 tab 01/29/21 [Rx Last Taken Unknown] furosemide 80 mg PO DAILY 04/12/21 [History Last Taken Unknown] hydrocodone-acetaminophen 1 tab PO Q6H PRN 3 Days #10 tab 04/12/21 [Rx Last Taken Unknown] ketorolac 10 mg PO BID PRN 5 Days #10 tab 04/19/21 [Rx Last Taken Unknown] levetiracetam [Keppra] 500 mg PO BID #60 tab 04/19/21 [Rx Last Taken Unknown] prednisone See Taper PO DAILY #30 tab 04/19/21 [Rx Last Taken Unknown] hydrocodone-acetaminophen 1 tab PO Q6H PRN PRN 3 Days #10 tablet 05/02/21 [Rx Last Taken Unknown] oxycodone-acetaminophen [Percocet] 1 tab PO Q6H PRN 2 Days #8 tab 05/05/21 [Rx Last Taken Unknown] budesonide-formoterol HFA 160 mcg-4.5 mcg/actuation aerosol inhaler 2 puff INHALATION BID #10.2 g 05/30/21 [Rx Last Taken Unknown] tiotropium bromide 2.5 mcg/actuation mist for inhalation 2 puff INHALATION QAM #4 g 05/30/21 [Rx Last Taken Unknown] duloxetine 30 mg capsule,delayed release 30 mg PO QAM #30 cap 09/30/21 [Rx Last Taken Unknown] duloxetine 60 mg capsule,delayed release 60 mg PO QPM #30 cap 09/30/21 [Rx Last Taken Unknown] pyridoxine (vitamin B6) 50 mg tablet 50 mg PO DAILY #30 tab 09/30/21 [Rx Last Taken Unknown] cyanocobalamin (vitamin B-12) 1,000 mcg tablet 1,000 mcg PO DAILY #30 tab 10/01/21 [Rx Last Taken Unknown] Allergy/AdvReac Type Severity Reaction Status Date / Time seasonal Allergy SOB Uncoded 10/17/21 16:47 Family History Father CAD (coronary artery disease) COPD (chronic obstructive pulmonary disease) CHF (congestive heart failure) CVA (cerebral vascular accident) Mother COPD (chronic obstructive pulmonary disease) Other Neuropathy Surgical History H/O coronary artery bypass surgery (10/2005) History of coronary artery stent placement (01/05/14) History of left heart catheterization (12/20/20) History of loop recorder (2015) History of open reduction and internal fixation (ORIF) procedure Social History household members: significant other and other housing: house number of children: 2 Smoking Status: Current every day smoker tobacco type: cigarettes Electronic Cigarette Use: not used second hand exposure: No alcohol intake: current alcohol intake frequency: a few times a month Alcohol type: beer, wine and hard liquor substance use type: marijuana caffeine: Yes Type: coffee what type of physical activity do you participate in: walking frequency: daily duration: < 15 minutes/day seatbelt use: always do you feel safe at home: Yes ROS ROS ED Constitutional Constitutional ED: Reports systems reviewed and no addt'l complaints, except as documented; Denies body ache(s), change in weight, chills or fever(s) Eyes Eyes: Denies acute decrease in peripheral vision, change in vision, double vision or loss of vision ENT ENT ED: Reports none; Denies ear pain, lip swelling, loss taste/smell, neck pain, otalgia or sore throat Cardiovascular Cardiovascular: Reports none; Denies abdominal pain, chest pain with activity, leg edema, lightheadedness, palpitations, rapid heart rate or syncope Respiratory/Chest Respiratory/Chest: Reports none and cough; Denies change in mental status, dry cough, dyspnea, hemoptysis, shortness of breath at rest or shortness of breath with exertion Gastrointestinal Gastrointestinal: Reports none, diarrhea and vomiting; Denies abdominal pain, change in stool character, hematemesis, hematochezia, melena or rectal bleeding Genitourinary Genitourinary ED: Reports none; Denies abdominal discomfort, anuria, dysuria, genital pain or polyuria Musculoskeletal Musculoskeletal: Reports none; Denies arthralgias, back pain, difficulty walking, extremity pain, muscle weakness or myalgias Integumentary Reports none; Denies abscess or rash Neurologic Neurologic: Reports none and weakness; Denies abnormal gait, confusion, focal weakness, frequent falls, headache(s), loss of vision, numbness, paresthesias, radicular pain or vertigo Psychiatric Psychiatric: Reports systems reviewed and no addt'l complaints, except as documented and none; Denies behavioral changes, confusion, difficulty concentrating, hallucinations, suicidal ideation, tactile hallucinations or visual hallucinations Endocrine Endocrinology: Denies none, cold intolerance, excessive sweating, fatigue or heat intolerance Hematologic/Lymphatic Hematologic/Lymphatic: Reports none; Denies anemia, easy bleeding or easy bruising Allergic/Immunologic Allergic/Immunologic ED: Denies as per HPI, none, lip swelling, mouth swelling, throat swelling, tongue swelling or hives EXAM Physical Exam Const Vital Signs: 10/17/21 16:45 10/17/21 17:24 10/17/21 17:53 Temperature 97.4 F L Temperature Source Temporal Pulse Rate 114 H 74 74 Respiratory Rate 18 18 24 H Blood Pressure 94/59 L 82/49 L 110/58 L Blood Pressure Mean 70 60 75 Pulse Ox 92 94 98 Oxygen Delivery Method Room Air Room Air Nasal Cannula Oxygen Flow Rate (L/min) 4 10/17/21 19:16 Temperature Temperature Source Pulse Rate 90 Respiratory Rate 18 Blood Pressure 89/44 L Blood Pressure Mean 59 Pulse Ox 99 Oxygen Delivery Method Nasal Cannula Oxygen Flow Rate (L/min) 4 Positive well nourished and well developed General Appearance ED: well developed and NAD HEENT Reports TM's clear and moist mucous membranes normocephalic and atraumatic; Negative for trauma or tenderness Tympanic Membrane ED: Yes TM's clear Eyes PERRL and EOMs intact bilaterally General Eye ED: Negative for pale conjunctiva or scleral icterus Neck no lymphadenopathy, supple and no JVD General: Negative for tenderness Chest Wall inspection of chest normal and palpation of chest normal Chest: Negative for tenderness Resp normal respiratory effort and clear to auscultation bilaterally Effort and Inspection: Negative for respiratory distress or pain with movement Auscultation: Negative for rhonchi, wheezes or diminished lung sounds Cardio regular rate, regular rhythm, S1 normal heart sound, S2 normal heart sound and no murmurs Peripheral Pulses: pulses 2+ throughout GI normal to inspection, nondistended, normoactive bowel sounds, soft to palpation, non-tender, non-distended and no masses Back/Spine no CVA tenderness and no thoracic nor lumbar tenderness Extremity Extremity Narrative: Patient has a posterior splint on his left lower extremity and the lower extremity is wrapped with an Carroll wrap from the foot to the knee. No significant erythema noted. General Extremety ED: Negative for edema General Extremity: Negative for edema Neuro oriented x3, CN's II-XII intact bilaterally, no sensory deficits noted and gait normal Sensorium / Orientation: awake, alert, oriented to person, oriented to place and oriented to time Motor Exam: strength 5/5 throughout and strength abnormal Psych mental status grossly normal Skin no rashes or lesions noted and no wounds MDM MDM MDM Narrative Medical decision making narrative: IV line established on arrival. He was ordered a liter normal same fluid bolus and his blood pressure did respond with systolic up into the 110's. Patient noted to have acute kidney injury. Case discussed with hospitalist will evaluate patient for admission. Patient's lactate was elevated but I do not feel patient is infected. He does not seem to have sepsis. Lab Data Attestation: I reviewed the patient's lab results. Labs: Laboratory Results - last 24 hr 10/17/21 10/17/21 10/17/21 17:30 17:30 17:30 WBC 11.5 H RBC 3.46 L Hgb 10.7 L Hct 35.6 L MCV 102.9 H MCH 30.9 MCHC 30.1 L RDW Std Deviation 69.2 H RDW Coeff of Arleen 18.3 H Plt Count 431 MPV 9.7 Immature Gran % (Auto) 0.600 Neut % (Auto) 69.9 Lymph % (Auto) 16.4 L [place] % (Auto) 9.4 Eos % (Auto) 3.0 Baso % (Auto) 0.7 Absolute Neuts (auto) 8.0 H Absolute Lymphs (auto) 1.88 Nucleated RBC % 0 Differential Comment SCANNED Anisocytosis 1+ Sodium 142 Potassium 3.7 Chloride 109 H Carbon Dioxide 18.0 L Anion Gap 15 BUN 20 H Creatinine 2.00 H Estim Creat Clear Calc 41.24 Est GFR (MDRD) Af Amer 45 L Est GFR (MDRD) Non-Af 37 L BUN/Creatinine Ratio 10.0 Glucose 125 H Lactic Acid 8.0 H* Calcium 9.5 Total Bilirubin 0.20 AST 8 L ALT 15 L Alkaline Phosphatase 98 Troponin I High Sens 19 Total Protein 6.8 Albumin 2.9 L Globulin 3.9 Albumin/Globulin Ratio 0.7 L Radiography Chest X-Ray - ED: 1 View Diagnostic Testing: Clinical Impression(s) from Imaging Studies Chest X-Ray 10/17/21 17:39 IMPRESSION: No acute cardiopulmonary pathology. Electronically Signed: Niles Truong MD at 18:06 EST , Service support , Chest x-ray obtained interpreted by myself is cardiomegaly otherwise nothing acute. Radiology in agreement. EKG Initial EKG: Attestation: I personally reviewed and interpreted this EKG as follows: Comments: Normal sinus rhythm with a ventricular rate of 75 bpm with no acute ST segment changes Discharge Plan Triage Chief Complaint: General Illness ED Provider: Maida Arcos Dx/Rx/DC Orders Clinical Impression: Acute hypotension, NIGEL (acute kidney injury), Acute dehydration Prescriptions: No Action ferrous sulfate 325 mg (65 mg iron) tablet 325 mg PO DAILY RF: 0 trazodone 150 mg tablet 150 mg PO QHS RF: 0 ropinirole 0.25 mg tablet 0.5 mg PO QHS RF: 0 pantoprazole [Protonix] 40 mg tablet,delayed release (DR/EC) 40 mg PO DAILY RF: 0 pregabalin [Lyrica] 100 mg capsule 100 mg PO TID RF: 0 aspirin [Adult Aspirin Regimen] 81 mg tablet,delayed release (DR/EC) 81 mg PO DAILY RF: 0 atorvastatin 80 mg tablet 80 mg PO QHS Qty: 90 RF: 3 clopidogrel 75 mg tablet 75 mg PO DAILY Qty: 90 RF: 3 ezetimibe 10 mg tablet 10 mg PO DAILY Qty: 90 RF: 3 isosorbide mononitrate 120 mg tablet extended release 24 hr 120 mg PO DAILY Qty: 90 RF: 3 lisinopril 10 mg tablet 10 mg PO DAILY Qty: 90 RF: 3 metoprolol succinate 100 mg tablet extended release 24 hr 100 mg PO DAILY Qty: 90 RF: 3 sotalol 120 mg tablet 120 mg PO BID Qty: 180 RF: 3 Spiriva Respimat 2.5 mcg/actuation mist 2 puff inhalation QAM Qty: 4 RF: 5 budesonide-formoterol 160-4.5 mcg/actuation HFA aerosol inhaler 2 puff INHALATION BID Qty: 10.2 RF: 5 pyridoxine (vitamin B6) 50 mg tablet 50 mg PO DAILY Qty: 30 RF: 2 duloxetine 30 mg capsule,delayed release(DR/EC) 30 mg PO QAM Qty: 30 RF: 2 duloxetine 60 mg capsule,delayed release(DR/EC) 60 mg PO QPM Qty: 30 RF: 1 cyanocobalamin (vitamin B-12) 1,000 mcg tablet 1,000 mcg PO DAILY Qty: 30 RF: 2 gabapentin 600 MG tablet 1,200 mg PO TIDCM RF: 0 albuterol sulfate 2.5 MG/3 ML solution for nebulization 1 dose IH Q4H PRN PRN (Reason: Sob &/Or Wheezing) RF: 0 nitroglycerin 0.4 MG tablet, sublingual 0.4 mg sublingual PRN PRN (Reason: chest pain) RF: 0 albuterol sulfate 1 PUFF inhaler 2 puff INHALATION Q6H PRN PRN (Reason: Sob &/Or Wheezing) RF: 0 Loratadine 10 mg PO DAILY RF: 0 (DME) pen needle, diabetic 1 EACH needle 1 ea MC DAILY Qty: 1 RF: 0 tamsulosin 0.4 MG capsule 0.4 mg PO DAILY@1730 RF: 0 insulin glargine 100 UNITS/ML insulin pen 20 units SC BREAKFAST RF: 0 furosemide 40 mg tablet 80 mg PO DAILY RF: 0 hydrocodone-acetaminophen 5-325 mg tablet 1 tab PO Q6H PRN (Reason: pain) 3 Days Qty: 10 RF: 0 prednisone 10 mg tablet See Taper mg PO DAILY Qty: 30 RF: 0 levetiracetam [Keppra] 500 mg tablet 500 mg PO BID Qty: 60 RF: 0 ketorolac 10 mg tablet 10 mg PO BID PRN (Reason: pain) 5 Days Qty: 10 RF: 0 hydrocodone-acetaminophen [hydrocodone-acetaminophen] 1 TABLET tablet 1 tab PO Q6H PRN PRN (Reason: Pain) 3 Days Qty: 10 RF: 0 oxycodone-acetaminophen [Percocet] 5-325 mg tablet 1 tab PO Q6H PRN (Reason: pain) 2 Days Qty: 8 RF: 0 Primary Care Provider: Blaze Louis Referrals: Blaze Louis MD [Primary Care Provider] - Disposition Disposition: Acute Care [facility]
[2021-10-17] MEDS: 0.9% Normal Saline 1,000 ML 1000 ML IV ×2 (17:25→20:07)
--- NOTE | 2021-10-17 17:39 | RAD_ITS ---
STUDY: X-RAY CHEST REASON FOR EXAM: Male, 56 years old. cough TECHNIQUE: AP portable COMPARISON: 04/18/2021 FINDINGS: Lungs are hyperinflated and there is minor interstitial thickening in the lower lobes.. There is no demonstrated pleural abnormality. Postop change status post median sternotomy CABG. Normal size heart. Normal mediastinum and ranjit. Normal visualized pulmonary arteries. Normal visualized aortic arch and descending thoracic aorta. Normal visualized thoracic spine. Normal visualized ribs, clavicles, and shoulders. There is no demonstrated abnormality of the visualized soft tissue structures of the upper abdomen. No significant change since prior exam. RAD/Chest 1 View (Portable) IMPRESSION: No acute cardiopulmonary pathology. Electronically Signed: Niles Truong MD at 18:06 EST , Service support ,
[2021-10-17 18:02] LABS: Absolute Lymphocyte Count 1.88 X10^3/uL (0.83-4.51); Basophil# 0.08 X10^3/uL; Basophil% 0.7 % (0-1); Eosinophil# 0.34 X10^3/uL; Hematocrit 35.6 % (40-54); Hemoglobin 10.7 g/dL (13.0-16.5); Lymphocyte # 1.88 X10^3/ul (0.83-4.51); Lymphocyte % 16.4 % (19-41); Mean Corp Hgb Conc 30.1 g/dL (32-36); Mean Corpuscular Hgb 30.9 pg (27.0-32.0); Mean Corpuscular Volume 102.9 fL (80-94); Mean Platelet Vol. 9.7 fl (6.2-12.0); Monocyte# 1.08 X10^3/uL; Monocyte% 9.4 % (0-10); NRBC Flagged by Analyzer 0 % (0-5); Neutrophil % 69.9 % (47-70); POSITIVE MORPHOLOGY YES; Platelet Count 431 K/mm3 (150-450); RBC Distribution Width CV 18.3 % (11.6-14.6); RBC Distribution Width SD 69.2 fl (35.1-43.9); Red Blood Count 3.46 M/mm3 (4.6-6.2); White Blood Count 11.5 K/mm3 (4.4-11.0)
[2021-10-17 18:12] LABS: ALB/GLOB Ratio 0.7 RATIO (0.9-2.4); AST(SGOT) 8 U/L (15-37); Alanine Aminotransfer ALT/SGPT 15 U/L (16-61); Albumin, Serum 2.9 g/dL (3.2-5.0); Alkaline Phosphatase 98 U/L (45-117); Anion Gap 15 (5-15); BUN 20 mg/dL (7-18); Calcium,Total 9.5 mg/dL (8.5-10.1); Chloride 109 mmol/L (98-107); EST Glomerular Filtration Rate 37 mL/min (>60); Est Glom Filt Rate - Afr Amer 45 mL/min (>60); Estimated Creatinine Clearance 41.24 ml/min; Globulin 3.9 g/dL (2.2-4.2); Glucose 125 mg/dL (74-106); Potassium 3.7 mmol/L (3.5-5.1); Protein, Total 6.8 g/dL (6.4-8.2); Sodium Level 142 mmol/L (136-145); Troponin-I HS 19 pg/mL (3.0-78.0)
[2021-10-17 18:33] LABS: Differential Indicated SCAN CRITERIA MET
[2021-10-17 18:36] LABS: Anisocytosis 1+; Differential Comment SCANNED
--- NOTE | 2021-10-17 19:04 | PCM.HP.STD ---
HPI - General HPI Narrative SAIRA STEVENS, is a 56 M with multiple comorbidities was seen earlier today in [facility] as preop evaluation for carotid endarterectomy was found low blood pressure, apparently 60/43 and was told for admission but he wanted to come [facility] and get admitted here. Patient has been having vomiting for last 2 to 3 days about 3 times large-volume. Patient also has chronic diarrhea but he did not had liquid bowel movement today. Denies GI bleed. As per patient's /fianc?e, he he is also confused and disoriented, more wobbly/disagreement today. Patient has chronic neuropathy of feet and has seen neurologist Dr. Marcelino Weir on 09/30 for neuropathy. Patient also has left ankle fracture and had surgery done about a week ago Patient denies any chest pain but has more shortness of breath on exertion than his normal. He has mild dizziness and lightheadedness but denies vertigo. Twelve-lead EKG shows normal sinus no 75 bpm, QTC 484 ms. Chest x-ray no acute abnormality. Labs reviewed, BUN/creatinine is elevated. [facility] Medical History (HFpEF) heart failure with preserved ejection fraction Acute hypotension Acute repetitive seizure Atherosclerosis of coronary artery bypass graft without angina pectoris Atherosclerosis of coronary artery of eek heart without angina pectoris Chest wall contusion Chronic anticoagulation Chronic obstructive pulmonary disease Diabetes mellitus Essential hypertension Fall from slip, trip, or stumble Fracture of rib Hyperlipidemia Leg swelling Lower extremity edema Major depression Metatarsal bone fracture Nicotine abuse KENNETH and COPD overlap syndrome Paroxysmal atrial fibrillation Rectal bleeding Secondary pulmonary arterial hypertension Smoking greater than 40 pack years Suicidal ideation Syncope Typical atrial flutter Home Medications gabapentin 1,200 mg PO TIDCM 12/07/15 [History Last Taken 12/18/20 07:00] ferrous sulfate 325 mg (65 mg iron) tablet 325 mg PO DAILY tab 11/26/18 [History Last Taken 12/18/20] albuterol sulfate 1 dose IH Q4H PRN PRN 11/09/19 [History Last Taken 12/18/20] albuterol sulfate 2 puff INHALATION Q6H PRN PRN 11/09/19 [History Last Taken 07/22/20] nitroglycerin 0.4 mg SUBLINGUAL PRN PRN 11/09/19 [History Last Taken 12/18/20] pantoprazole 40 mg tablet,delayed release 40 mg PO DAILY 11/11/19 [History Last Taken 07/22/20] pregabalin 100 mg capsule 100 mg PO TID cap 11/11/19 [History Last Taken 12/18/20 07:00] ropinirole 0.25 mg tablet 0.5 mg PO QHS 11/11/19 [History Last Taken 12/17/20] trazodone 150 mg tablet 150 mg PO QHS 11/11/19 [History Last Taken 12/17/20] Loratadine 10 mg PO DAILY 04/30/20 [History Last Taken 12/18/20] aspirin 81 mg tablet,delayed release 81 mg PO DAILY 05/24/20 [History Last Taken 12/18/20] pen needle, diabetic #1 box 11/16/20 [Rx Last Taken Unknown] insulin glargine 20 units SC BREAKFAST 12/18/20 [History Last Taken 12/18/20 07:00] tamsulosin 0.4 mg PO DAILY@1730 12/18/20 [History Last Taken 12/17/20] atorvastatin 80 mg tablet 80 mg PO QHS #90 tab 01/29/21 [Rx Last Taken Unknown] clopidogrel 75 mg tablet 75 mg PO DAILY #90 tab 01/29/21 [Rx Last Taken Unknown] ezetimibe 10 mg tablet 10 mg PO DAILY #90 tab 01/29/21 [Rx Last Taken Unknown] isosorbide mononitrate 120 mg tablet,extended release 24 hr 120 mg PO DAILY #90 tab 01/29/21 [Rx Last Taken Unknown] lisinopril 10 mg tablet 10 mg PO DAILY #90 tab 01/29/21 [Rx Last Taken Unknown] metoprolol succinate 100 mg tablet,extended release 24 hr 100 mg PO DAILY #90 tab 01/29/21 [Rx Last Taken Unknown] sotalol 120 mg tablet 120 mg PO BID #180 tab 01/29/21 [Rx Last Taken Unknown] furosemide 80 mg PO DAILY 04/12/21 [History Last Taken Unknown] hydrocodone-acetaminophen 1 tab PO Q6H PRN 3 Days #10 tab 04/12/21 [Rx Last Taken Unknown] ketorolac 10 mg PO BID PRN 5 Days #10 tab 04/19/21 [Rx Last Taken Unknown] levetiracetam [Keppra] 500 mg PO BID #60 tab 04/19/21 [Rx Last Taken Unknown] prednisone See Taper PO DAILY #30 tab 04/19/21 [Rx Last Taken Unknown] hydrocodone-acetaminophen 1 tab PO Q6H PRN PRN 3 Days #10 tablet 05/02/21 [Rx Last Taken Unknown] oxycodone-acetaminophen [Percocet] 1 tab PO Q6H PRN 2 Days #8 tab 05/05/21 [Rx Last Taken Unknown] budesonide-formoterol HFA 160 mcg-4.5 mcg/actuation aerosol inhaler 2 puff INHALATION BID #10.2 g 05/30/21 [Rx Last Taken Unknown] tiotropium bromide 2.5 mcg/actuation mist for inhalation 2 puff INHALATION QAM #4 g 05/30/21 [Rx Last Taken Unknown] duloxetine 30 mg capsule,delayed release 30 mg PO QAM #30 cap 09/30/21 [Rx Last Taken Unknown] duloxetine 60 mg capsule,delayed release 60 mg PO QPM #30 cap 09/30/21 [Rx Last Taken Unknown] pyridoxine (vitamin B6) 50 mg tablet 50 mg PO DAILY #30 tab 09/30/21 [Rx Last Taken Unknown] cyanocobalamin (vitamin B-12) 1,000 mcg tablet 1,000 mcg PO DAILY #30 tab 10/01/21 [Rx Last Taken Unknown] Allergy/AdvReac Type Severity Reaction Status Date / Time seasonal Allergy SOB Uncoded 10/17/21 16:47 Family History Father CAD (coronary artery disease) COPD (chronic obstructive pulmonary disease) CHF (congestive heart failure) CVA (cerebral vascular accident) Mother COPD (chronic obstructive pulmonary disease) Other Neuropathy Surgical History H/O coronary artery bypass surgery (10/2005) History of coronary artery stent placement (01/05/14) History of left heart catheterization (12/20/20) History of loop recorder (2015) History of open reduction and internal fixation (ORIF) procedure Social History household members: significant other and other housing: house number of children: 2 Smoking Status: Current every day smoker tobacco type: cigarettes Electronic Cigarette Use: not used second hand exposure: No alcohol intake: current alcohol intake frequency: a few times a month Alcohol type: beer, wine and hard liquor substance use type: marijuana caffeine: Yes Type: coffee what type of physical activity do you participate in: walking frequency: daily duration: < 15 minutes/day seatbelt use: always do you feel safe at home: Yes ROS ROS Narrative Constitutional: No fever. Reports fatigue and weakness. HEENT: Reports systems reviewed and no addt'l complaints, except as documented Respiratory/Chest: As mentioned in HPI Gastrointestinal: As mentioned in HPI. No hematemesis melena or hematochezia. Genitourinary: Denies burning urination or new urinary tract symptoms. Push hard for urination, chronic. Musculoskeletal: Reports left ankle joint recent surgery. On Carroll wrap bandage. Neurologic: Denies seizure-like activity. Chronic seizure history skin: Surgical wound with dressing on left below-knee. Endocrinology: Reports systems reviewed and no addt'l complaints, except as documented Hematologic/Lymphatic: Reports systems reviewed and no addt'l complaints, except as documented Rest 12 ROS are negative except as mentioned in HPI Vital Signs Vital Signs Vital Signs: 10/17/21 16:45 10/17/21 17:24 10/17/21 17:53 Temperature 97.4 F L Temperature Source Temporal Pulse Rate 114 H 74 74 Respiratory Rate 18 18 24 H Blood Pressure 94/59 L 82/49 L 110/58 L Blood Pressure Mean 70 60 75 Pulse Ox 92 94 98 Oxygen Delivery Method Room Air Room Air Nasal Cannula Oxygen Flow Rate (L/min) 4 Weight Weight: 194 lb Body Mass Index (BMI) 28.6 Physical Exam Narrative General: Alert, Oriented x3, Cooperative HEENT: Atraumatic, PERRLA, EOMI, Normocephalic Oral: No Gingival or Mucosal Lesions/ Ulcerations. Oral mucosa is dry. Neck: Supple, No JVD, Negative Carotid Bruits Lungs: Air entry equal in bilateral lung bases. No crepitation/rhonchi Cardiovascular: Regular rate, Regular Rhythm, Normal S1, Normal S2, No murmurs Abdomen: Bowel Sounds Present, Soft, Non Tender, Non-Distended : No renal angle tenderness. No suprapubic tenderness. Extremities: No edema, Capillary Refill Less than 3 Seconds Skin: No rashes, No breakdown Musculoskeletal: Left below-knee Carroll wrap bandage. Recent ankle surgery. Surgical dressing on. Neurological: Cranial nerves II-XII grossly intact, DTR 2+/4. Neuropathy in lower legs. Psych/Mental Status: Flat affect. Results Lab / Micro Data Result Diagrams: 10/17/21 17:30 10/17/21 17:30 Labs: Laboratory Results - last 24 hr 10/17/21 17:30: WBC 11.5 H, RBC 3.46 L, Hgb 10.7 L, Hct 35.6 L, MCV 102.9 H, MCH 30.9, MCHC 30.1 L, RDW Std Deviation 69.2 H, RDW Coeff of Arleen 18.3 H, Plt Count 431, MPV 9.7, Immature Gran % (Auto) 0.600, Neut % (Auto) 69.9, Lymph % (Auto) 16.4 L, [place] % (Auto) 9.4, Eos % (Auto) 3.0, Baso % (Auto) 0.7, Absolute Neuts (auto) 8.0 H, Absolute Lymphs (auto) 1.88, Nucleated RBC % 0, Differential Comment SCANNED, Anisocytosis 1+ 10/17/21 17:30: Sodium 142, Potassium 3.7, Chloride 109 H, Carbon Dioxide 18.0 L, Anion Gap 15, BUN 20 H, Creatinine 2.00 H, Estim Creat Clear Calc 41.24, Est GFR (MDRD) Af Amer 45 L, Est GFR (MDRD) Non-Af 37 L, BUN/Creatinine Ratio 10.0, Glucose 125 H, Calcium 9.5, Total Bilirubin 0.20, AST 8 L, ALT 15 L, Alkaline Phosphatase 98, Troponin I High Sens 19, Total Protein 6.8, Albumin 2.9 L, Globulin 3.9, Albumin/Globulin Ratio 0.7 L 10/17/21 17:30: Lactic Acid 8.0 H* Micro: Microbiology 10/17/21 17:37 Nasal Secretion SARS-CoV-2 Antigen (Rapid) - Final Radiology Impression Chest X-Ray 10/17/21 17:39 IMPRESSION: No acute cardiopulmonary pathology. Electronically Signed: Niles Truong MD at 18:06 EST , Service support , Assessment & Plan Assessment/Plan (1) Nausea: PLAN: 1. Acute hypotension due to vomiting/GI fluid loss coupled with Lasix: Patient was admitted in March 2021 also for hypotension and intermittent seizure and at that time he signed AMA. Patient is being admitted in PCU. IV fluid Ringer lactate at 150 mL/h for 2 L and then reevaluate. Patient has high anion gap hyperchloremic metabolic acidosis, chloride 109, bicarb 18, anion gap 15. Lactic acidosis most likely from tissue hypoperfusion. Patient does not have signs and symptoms of infection including fever,lower UTI or pneumonia or acute abdominal pain. cycle troponins as patient has history of coronary artery disease and mild shortness of breath more than his baseline along with dizziness. 2. NIGEL on CKD stage II most likely prerenal: BUN/creatinine elevated. IV fluid Ringer lactate as mentioned above 3. Lactic acidosis most likely due to hypoperfusion: Patient had lactic acid during previous admission 4. Carotid stenosis: Patient has severe carotid stenosis on the left and supposed to have carotid enterectomy admission HPI. Patient has chronic right eye blindness and left eye vision impaired probably due to carotid stenosis as he was told.. 5. COPD with chronic anoxic respiratory failure-patient on baseline home O2 reported no acute abnormality. EKG normal sinus rhythm. Continue patient's baseline inhaler. 6. Chronic heart failure with preserved ejection fraction: Last echo August 2021 reported EF 65%, stage III diastolic dysfunction moderate concentric LVH. 7. CAD with history of CABG and stents-continue aspirin, statin, Plavix, isosorbide, metoprolol, lisinopril. 8. Paroxysmal atrial fibrillation-on aspirin, Plavix, metoprolol, sotalol. 9. Type 2 diabetes mellitus-glucose is normal 125 in BMP. Accu-Cheks with sliding scale insulin. Home insulin continued with adjustment as needed for Accu-Cheks. 10. KENNETH-continue home CPAP regimen. 11. Hypertension-currently hypotension 12. Hyperlipidemia-continue statin, Zetia. 13. Restless leg syndrome-on Requip. 14. Tobacco dependence-encourage cessation 15. Depression/insomnia-continue duloxetine, trazodone. 16. BPH-continue Flomax. Living will/advanced directive/end of life care: Patient does not have living will or advanced directive. After discussion of benefits/risks procedures involved with full code, DNR CC arrest and DNR CC, the patient opted for DNR-CC Arrest with no intubation Patient does not want artificial life support including intubation, tube feed, ventilator and/chest compression, central venous catheter, vasopressor and DC shock if needed Total time spent in [id number]-op-[id number] encounter in discussion of advanced directive 16 minutes. Charges/Coding Visit Charges Inpatient E&M: 23021 Init Hosp L3 Procedures Hospitalists Procedures: 83660 Advncd Care Plan 30 Min
--- NOTE | 2021-10-17 20:44 | PCS.PANDOC ---
PANDEMIC DOCUMENTATION INITIATED: Date: 07/15/2021 Time: 190
[2021-10-17] MEDS: Lactated Ringers 1,000 ML 150 ML IV (20:49)
[2021-10-17] MEDS: oxyCODONE 5 MG Tablet PO (20:49)
[2021-10-17] MEDS: Albuterol 2.5 MG/3 ML VIAL.NEB. INHALATION (21:26)
[2021-10-17] MEDS: Budesonide Respules 0.5 MG/2 ML AMPUL.NEB. INHALATION (21:26)
[2021-10-17 21:37] LABS: Reflex Lactate? Y
[2021-10-17] MEDS: Enoxaparin 40 MG/0.4 ML Syringe SC (21:49)
[2021-10-17] MEDS: Aspirin E.C. 81 MG Tablet PO (21:49)
[2021-10-17] MEDS: Sotalol Hydrochloride 80 MG Tablet 120 MG PO (21:50)
[2021-10-17] MEDS: traZODone 50 MG Tablet 150 MG PO (21:50)
[2021-10-17] MEDS: Gabapentin 600 MG Tablet 1200 MG PO (21:51)
[2021-10-17] MEDS: levETIRAcetam 500 MG Tablet PO (21:52)
[2021-10-17] MEDS: Atorvastatin Calcium 80 MG Tablet PO (21:52)
[2021-10-17] MEDS: Pregabalin 50 MG Capsule 100 MG PO (21:52)
[2021-10-17] MEDS: Pramipexole Di-HCl 0.25 MG Tablet PO (21:52)
[2021-10-17 22:19] LABS: Magnesium 1.4 mg/dL (1.6-2.6); Phosphorus 4.4 mg/dL (2.5-4.9); Troponin-I HS 19 pg/mL (3.0-78.0)
[2021-10-17 22:30] LABS: Bedside Glucose 148 mg/dL (70-110)
[2021-10-17 22:51] LABS: Lactic Acid 1.1 mmol/L (0.4-1.9)
[2021-10-18] VITALS (8 sets, daily range): BP systolic 118–131; BP diastolic 62–66; PULSE 79–88; RESP 12–18; TEMP 36.8–36.9; O2SAT 97–100
[2021-10-18 00:06] LABS: Troponin-I HS 24 pg/mL (3.0-78.0)
[2021-10-18] MEDS: oxyCODONE 5 MG Tablet PO ×2 (04:27→11:09)
[2021-10-18] MEDS: Lactated Ringers 1,000 ML 150 ML IV (05:49)
[2021-10-18] MEDS: Pregabalin 50 MG Capsule 100 MG PO ×2 (05:49→13:23)
[2021-10-18] MEDS: Albuterol 2.5 MG/3 ML VIAL.NEB. INHALATION ×2 (06:59→13:08)
[2021-10-18] MEDS: Budesonide Respules 0.5 MG/2 ML AMPUL.NEB. INHALATION (06:59)
[2021-10-18 07:31] LABS: Absolute Lymphocyte Count 1.68 X10^3/uL (0.83-4.51); Absolute Neutrophil Count 7.8 X10^3/uL (2.0-7.7); Basophil# 0.05 X10^3/uL; Basophil% 0.5 % (0-1); Eosinophil# 0.29 X10^3/uL; Eosinophils% 2.7 % (0-5); Hematocrit 29.9 % (40-54); Hemoglobin 9.1 g/dL (13.0-16.5); Lymphocyte # 1.68 X10^3/ul (0.83-4.51); Lymphocyte % 15.5 % (19-41); Mean Corp Hgb Conc 30.4 g/dL (32-36); Mean Corpuscular Hgb 30.8 pg (27.0-32.0); Mean Corpuscular Volume 101.4 fL (80-94); Mean Platelet Vol. 9.5 fl (6.2-12.0); Monocyte# 0.92 X10^3/uL; Monocyte% 8.5 % (0-10); NRBC Flagged by Analyzer 0 % (0-5); Neutrophil # 7.81 X10^3/uL (2.7-7.7); Neutrophil % 72.2 % (47-70); POSITIVE MORPHOLOGY YES; Platelet Count 292 K/mm3 (150-450); RBC Distribution Width CV 18.2 % (11.6-14.6); RBC Distribution Width SD 67.9 fl (35.1-43.9); Red Blood Count 2.95 M/mm3 (4.6-6.2); White Blood Count 10.8 K/mm3 (4.4-11.0)
[2021-10-18 07:34] LABS: Differential Indicated SCAN CRITERIA MET
[2021-10-18 07:56] LABS: Anion Gap 1 (5-15); BUN 14 mg/dL (7-18); Calcium,Total 8.5 mg/dL (8.5-10.1); Chloride 111 mmol/L (98-107); EST Glomerular Filtration Rate 124 mL/min (>60); Est Glom Filt Rate - Afr Amer 150 mL/min (>60); Estimated Creatinine Clearance 121.67 ml/min; Glucose 105 mg/dL (74-106); Magnesium 1.7 mg/dL (1.6-2.6); Potassium 3.6 mmol/L (3.5-5.1); Sodium Level 140 mmol/L (136-145)
[2021-10-18 08:03] LABS: Anisocytosis 1+; Hypochromasia 2+; Macrocytosis RARE; Platelet Estimate ADEQUATE (ADEQ); Polychromasia RARE
[2021-10-18 08:41] LABS: Bedside Glucose 110 mg/dL (70-110)
[2021-10-18] MEDS: Gabapentin 600 MG Tablet 1200 MG PO ×2 (09:15→12:57)
[2021-10-18] MEDS: Aspirin E.C. 81 MG Tablet PO (09:16)
[2021-10-18] MEDS: DULoxetine Hcl 30 MG Capsule PO (09:16)
[2021-10-18] MEDS: Sotalol Hydrochloride 80 MG Tablet 120 MG PO (09:16)
[2021-10-18] MEDS: Loratadine 10 MG Tablet PO (09:16)
[2021-10-18] MEDS: Ferrous Sulfate 325 MG Tablet PO (09:17)
[2021-10-18] MEDS: Clopidogrel Bisulfate 75 MG Tablet PO (09:17)
[2021-10-18] MEDS: Pantoprazole Sodium 40 MG Tablet PO (09:17)
[2021-10-18] MEDS: Ezetimibe 10 MG Tablet PO (09:17)
[2021-10-18] MEDS: Enoxaparin 40 MG/0.4 ML Syringe SC (09:17)
[2021-10-18] MEDS: levETIRAcetam 500 MG Tablet PO (09:17)
[2021-10-18] MEDS: Pyridoxine HCl 50 MG Tablet PO (09:18)
[2021-10-18] MEDS: Cyanocobalamin 500 MCG Tablet 1000 MCG PO (09:18)
[2021-10-18] MEDS: Metoprolol(XL)Succ 100 MG Tablet PO (09:18)
[2021-10-18] MEDS: Umeclidinium Bromide Inhaler 1 PUFF INHALATION (09:18)
[2021-10-18 09:30] LABS: Bacteria 0 SEEN /hpf (None Seen); Mucous, Urine 0 SEEN /hpf (<or=2+); Red Blood Cells-Urine 0 SEEN /hpf (0-5); White Blood Cells 0 SEEN /hpf (0-5)
[2021-10-18 09:34] LABS: Color, Urine Yellow (Yellow); Glucose, Dipstick Normal (Normal); Ketone-Dipstick Negative (Negative); Leukocyte Esterase-Dipstick Negative /ul (Negative); Nitrite-Dipstick Negative (Negative); Occult Blood-Urine Negative /ul (Negative); Protein-Dipstick Negative (Negative); Urine Bilirubin Dipstick Negative (Negative); Urine Clarity Clear (Clear); Urine Urobilinogen Normal (Normal)
[2021-10-18 09:40] LABS: Squamous Epithelial Cells - UA 0-5 SEEN /hpf (0-5)
[2021-10-18] MEDS: Acetaminophen 325 MG Tablet 650 MG PO (11:09)
--- NOTE | 2021-10-18 12:00 | DCINST_ITS ---
Discharge Instructions Diet Discharge Diet: 1800 Calorie Control Diet Activity Discharge Activity: Return to Normal Activity Weight Bearing Status: Full weight bearing Follow Up Care Test Results: Test results from this visit will be discussed in further detail at your follow-up appointment, if applicable. Discharge Plan Admission Admit Date/Time: 10/17/21 18:40 Primary Reason for Your Visit: hypotension Attending Provider: Ryland Lvei Primary Care Provider: Blaze Louis Discharge Orders/Prescriptions Prescriptions: Continued trazodone 150 mg tablet 150 mg PO QHS RF: 0 pantoprazole [Protonix] 40 mg tablet,delayed release (DR/EC) 40 mg PO DAILY RF: 0 pregabalin [Lyrica] 100 mg capsule 100 mg PO TID RF: 0 aspirin [Adult Aspirin Regimen] 81 mg tablet,delayed release (DR/EC) 81 mg PO DAILY RF: 0 atorvastatin 80 mg tablet 80 mg PO QHS Qty: 90 RF: 3 clopidogrel 75 mg tablet 75 mg PO DAILY Qty: 90 RF: 3 ezetimibe 10 mg tablet 10 mg PO DAILY Qty: 90 RF: 3 isosorbide mononitrate 120 mg tablet extended release 24 hr 120 mg PO DAILY Qty: 90 RF: 3 lisinopril 10 mg tablet 10 mg PO DAILY Qty: 90 RF: 3 metoprolol succinate 100 mg tablet extended release 24 hr 100 mg PO DAILY Qty: 90 RF: 3 sotalol 120 mg tablet 120 mg PO BID Qty: 180 RF: 3 budesonide-formoterol 160-4.5 mcg/actuation HFA aerosol inhaler 2 puff INHALATION BID Qty: 10.2 RF: 5 pyridoxine (vitamin B6) 50 mg tablet 50 mg PO DAILY Qty: 30 RF: 2 duloxetine 30 mg capsule,delayed release(DR/EC) 30 mg PO QAM Qty: 30 RF: 2 duloxetine 60 mg capsule,delayed release(DR/EC) 60 mg PO QPM Qty: 30 RF: 1 cyanocobalamin (vitamin B-12) 1,000 mcg tablet 1,000 mcg PO DAILY Qty: 30 RF: 2 gabapentin 600 MG tablet 1,200 mg PO TIDCM RF: 0 albuterol sulfate 2.5 MG/3 ML solution for nebulization 1 dose IH Q4H PRN PRN (Reason: Sob &/Or Wheezing) RF: 0 nitroglycerin 0.4 MG tablet, sublingual 0.4 mg sublingual PRN PRN (Reason: chest pain) RF: 0 albuterol sulfate 1 PUFF inhaler 2 puff INHALATION Q6H PRN PRN (Reason: Sob &/Or Wheezing) RF: 0 tamsulosin 0.4 MG capsule 0.4 mg PO DAILY@1730 RF: 0 insulin glargine 100 UNITS/ML insulin pen 20 units SC BREAKFAST RF: 0 levetiracetam [Keppra] 500 mg tablet 500 mg PO BID Qty: 60 RF: 0 ropinirole 0.5 mg tablet 0.5 mg PO QHS RF: 0 loratadine 10 mg Tablet 10 mg PO DAILY RF: 0 oxycodone 5 mg tablet 5 mg PO Q6H PRN PRN (Reason: Pain) RF: 0 Changed furosemide 40 mg tablet 40 mg PO DAILY Qty: 0 RF: 0 Referrals / Follow Up: Blaze Louis MD [Primary Care Provider] - See Referral Note (call to see w hen he wants to see you) Disposition Disposition (needs filled in before D/C Order can be placed): Home, Self Care
[2021-10-18 12:05] LABS: Bedside Glucose 178 mg/dL (70-110)
--- NOTE | 2021-10-18 12:17 | PHA.DC.MR ---
Pharmacy Service has performed discharge medication reconciliation for this patient. The patient's discharge medication list was reviewed for discrepancies and discrepancies were resolved. Home Medications gabapentin 1,200 mg PO TIDCM 12/07/15 albuterol sulfate 1 dose IH Q4H PRN PRN 11/09/19 albuterol sulfate 2 puff INHALATION Q6H PRN PRN 11/09/19 nitroglycerin 0.4 mg SUBLINGUAL PRN PRN 11/09/19 pantoprazole 40 mg tablet,delayed release 40 mg PO DAILY 11/11/19 pregabalin 100 mg capsule 100 mg PO TID cap 11/11/19 trazodone 150 mg tablet 150 mg PO QHS 11/11/19 aspirin 81 mg tablet,delayed release 81 mg PO DAILY 05/24/20 insulin glargine 20 units SC BREAKFAST 12/18/20 tamsulosin 0.4 mg PO DAILY@1730 12/18/20 atorvastatin 80 mg tablet 80 mg PO QHS #90 tab 01/29/21 clopidogrel 75 mg tablet 75 mg PO DAILY #90 tab 01/29/21 ezetimibe 10 mg tablet 10 mg PO DAILY #90 tab 01/29/21 isosorbide mononitrate 120 mg tablet,extended release 24 hr 120 mg PO DAILY #90 tab 01/29/21 lisinopril 10 mg tablet 10 mg PO DAILY #90 tab 01/29/21 metoprolol succinate 100 mg tablet,extended release 24 hr 100 mg PO DAILY #90 tab 01/29/21 sotalol 120 mg tablet 120 mg PO BID #180 tab 01/29/21 levetiracetam [Keppra] 500 mg PO BID #60 tab 04/19/21 budesonide-formoterol HFA 160 mcg-4.5 mcg/actuation aerosol inhaler 2 puff INHALATION BID #10.2 g 05/30/21 duloxetine 30 mg capsule,delayed release 30 mg PO QAM #30 cap 09/30/21 duloxetine 60 mg capsule,delayed release 60 mg PO QPM #30 cap 09/30/21 pyridoxine (vitamin B6) 50 mg tablet 50 mg PO DAILY #30 tab 09/30/21 cyanocobalamin (vitamin B-12) 1,000 mcg tablet 1,000 mcg PO DAILY #30 tab 10/01/21 loratadine 10 mg PO DAILY 10/17/21 oxycodone 5 mg PO Q6H PRN PRN 10/17/21 ropinirole 0.5 mg PO QHS 10/17/21 furosemide 40 mg PO DAILY #0 tab 10/18/21
--- NOTE | 2021-10-18 15:09 | DS.PCM_ITS ---
Providers Date of Admission: 10/17/21 Date of Discharge: 10/18/21 Primary Care Physician: Dr. Blaze Louis MD Reason For Visit: HYPOTENSION, HIGH LACTIC ACIDOSIS Diagnosis Discharge Diagnosis (1) Nausea: Status: Acute Code(s): R11.0 - Nausea Plan: 1. Acute hypotension secondary to fluid loss and concurrent use of diuretics #2 acute kidney injury in a backdrop of chronic kidney disease stage II #3 chronic obstructive pulmonary disease #4 chronic hypoxic respiratory failure #5 chronic diastolic congestive heart failure Medications at Discharge Home Medications gabapentin 1,200 mg PO TIDCM 12/07/15 albuterol sulfate 1 dose IH Q4H PRN PRN 11/09/19 albuterol sulfate 2 puff INHALATION Q6H PRN PRN 11/09/19 nitroglycerin 0.4 mg SUBLINGUAL PRN PRN 11/09/19 pantoprazole 40 mg tablet,delayed release 40 mg PO DAILY 11/11/19 pregabalin 100 mg capsule 100 mg PO TID cap 11/11/19 trazodone 150 mg tablet 150 mg PO QHS 11/11/19 aspirin 81 mg tablet,delayed release 81 mg PO DAILY 05/24/20 insulin glargine 20 units SC BREAKFAST 12/18/20 tamsulosin 0.4 mg PO DAILY@1730 12/18/20 atorvastatin 80 mg tablet 80 mg PO QHS #90 tab 01/29/21 clopidogrel 75 mg tablet 75 mg PO DAILY #90 tab 01/29/21 ezetimibe 10 mg tablet 10 mg PO DAILY #90 tab 01/29/21 isosorbide mononitrate 120 mg tablet,extended release 24 hr 120 mg PO DAILY #90 tab 01/29/21 lisinopril 10 mg tablet 10 mg PO DAILY #90 tab 01/29/21 metoprolol succinate 100 mg tablet,extended release 24 hr 100 mg PO DAILY #90 tab 01/29/21 sotalol 120 mg tablet 120 mg PO BID #180 tab 01/29/21 levetiracetam [Keppra] 500 mg PO BID #60 tab 04/19/21 budesonide-formoterol HFA 160 mcg-4.5 mcg/actuation aerosol inhaler 2 puff INHALATION BID #10.2 g 05/30/21 duloxetine 30 mg capsule,delayed release 30 mg PO QAM #30 cap 09/30/21 duloxetine 60 mg capsule,delayed release 60 mg PO QPM #30 cap 09/30/21 pyridoxine (vitamin B6) 50 mg tablet 50 mg PO DAILY #30 tab 09/30/21 cyanocobalamin (vitamin B-12) 1,000 mcg tablet 1,000 mcg PO DAILY #30 tab 10/01/21 loratadine 10 mg PO DAILY 10/17/21 oxycodone 5 mg PO Q6H PRN PRN 10/17/21 ropinirole 0.5 mg PO QHS 10/17/21 furosemide 40 mg PO DAILY #0 tab 10/18/21 Hospital Course Operations None Procedures None Summary of Care Provided Minutes Spent on Discharge: 30 Hospital Course: This 56-year-old white male was seen in the emergency room at [facility] with a complaint of low blood pressure, he was evaluated at [facility] due to the need for surgery for carotid stenosis. Patient was noted to have low blood pressure, and they take the patient to the emergency room there and he refused to stay so he came to the emergency room at [facility] for evaluation. Patient complained of intermittent nausea x2 days and he states he has a history of chronic diarrhea. Evaluation in the ER revealed his blood pressure to be 94/59 he was given IV fluids and his systolic blood pressure increased to 110. Patient was placed in observation status for hypotension, he was given IV fluids, his home medications were adjusted. On 10/18/2021, patient was seen and examined: On examination he appeared in good health and spirits. Vital signs as documented. Skin warm and dry and without overt rashes. Neck without JVD, neck was supple, trachea midline, thyroid was normal. Lungs clear bilaterally, normal air movement was noted. Heart exam notable for regular rhythm, normal sounds and absence of murmurs, rubs or gallops. Abdomen unremarkable and without evidence of organomegaly, masses, or abdominal aortic enlargement. Bowel sounds are present, abdomen is not distended. Extremities nonedematous, no cyanosis was noted, no clubbing was noted. Neuro: Cranial nerves II through XII are grossly intact, no focal motor deficits were noted, sensation to light touch and pinprick intact, motor exam 5/5 throughout. Psych: Patient is alert and oriented x3, he does not appear anxious or depressed, he does not appear agitated. On 10/18/2021, patient was discharged home in stable condition. Weight / BMI Weight Weight: 87.5 kg Body Mass Index (BMI) 27.6 ABG / Lab / Microbiology Data Result Diagrams: 10/18/21 06:55 10/18/21 06:55 Microbiology: Microbiology 10/17/21 17:40 Blood Culture (Wb) - Anticubital Left Blood Culture - Preliminary No growth in 48 hours. 10/17/21 17:30 Blood Culture (Wb) - Anticubital Right Blood Culture - Preliminary No growth in 48 hours. 10/17/21 17:37 Nasal Secretion SARS-CoV-2 Antigen (Rapid) - Final D/C Instructions Discharge Diet: 1800 Calorie Control Diet Weight Bearing Status: Full weight bearing Meaningful Use Info Meaningful Use Diagnoses (Choose all that apply): None applicable Discharge Plan Admission Admit Date/Time: 10/17/21 18:40 Primary Reason for Your Visit: hypotension Attending Provider: Ryland Levi Primary Care Provider: Blaze Louis Discharge Orders/Prescriptions Prescriptions: Continued trazodone 150 mg tablet 150 mg PO QHS RF: 0 pantoprazole [Protonix] 40 mg tablet,delayed release (DR/EC) 40 mg PO DAILY RF: 0 pregabalin [Lyrica] 100 mg capsule 100 mg PO TID RF: 0 aspirin [Adult Aspirin Regimen] 81 mg tablet,delayed release (DR/EC) 81 mg PO DAILY RF: 0 atorvastatin 80 mg tablet 80 mg PO QHS Qty: 90 RF: 3 clopidogrel 75 mg tablet 75 mg PO DAILY Qty: 90 RF: 3 ezetimibe 10 mg tablet 10 mg PO DAILY Qty: 90 RF: 3 isosorbide mononitrate 120 mg tablet extended release 24 hr 120 mg PO DAILY Qty: 90 RF: 3 lisinopril 10 mg tablet 10 mg PO DAILY Qty: 90 RF: 3 metoprolol succinate 100 mg tablet extended release 24 hr 100 mg PO DAILY Qty: 90 RF: 3 sotalol 120 mg tablet 120 mg PO BID Qty: 180 RF: 3 budesonide-formoterol 160-4.5 mcg/actuation HFA aerosol inhaler 2 puff INHALATION BID Qty: 10.2 RF: 5 pyridoxine (vitamin B6) 50 mg tablet 50 mg PO DAILY Qty: 30 RF: 2 duloxetine 30 mg capsule,delayed release(DR/EC) 30 mg PO QAM Qty: 30 RF: 2 duloxetine 60 mg capsule,delayed release(DR/EC) 60 mg PO QPM Qty: 30 RF: 1 cyanocobalamin (vitamin B-12) 1,000 mcg tablet 1,000 mcg PO DAILY Qty: 30 RF: 2 gabapentin 600 MG tablet 1,200 mg PO TIDCM RF: 0 albuterol sulfate 2.5 MG/3 ML solution for nebulization 1 dose IH Q4H PRN PRN (Reason: Sob &/Or Wheezing) RF: 0 nitroglycerin 0.4 MG tablet, sublingual 0.4 mg sublingual PRN PRN (Reason: chest pain) RF: 0 albuterol sulfate 1 PUFF inhaler 2 puff INHALATION Q6H PRN PRN (Reason: Sob &/Or Wheezing) RF: 0 tamsulosin 0.4 MG capsule 0.4 mg PO DAILY@1730 RF: 0 insulin glargine 100 UNITS/ML insulin pen 20 units SC BREAKFAST RF: 0 levetiracetam [Keppra] 500 mg tablet 500 mg PO BID Qty: 60 RF: 0 ropinirole 0.5 mg tablet 0.5 mg PO QHS RF: 0 loratadine 10 mg Tablet 10 mg PO DAILY RF: 0 oxycodone 5 mg tablet 5 mg PO Q6H PRN PRN (Reason: Pain) RF: 0 Changed furosemide 40 mg tablet 40 mg PO DAILY Qty: 0 RF: 0 Referrals / Follow Up: Blaze Louis MD [Primary Care Provider] - See Referral Note (call to see when he wants to see you) Disposition Disposition (needs filled in before D/C Order can be placed): Home, Self Care Charges/Coding Visit Charges OBSV E&M: 24367 Observation care discharge
== END 2021-10-18 12:04 | disposition home or self-care (01) ==
LOC: ED 19:24 → PCU 19:50
PROVIDERS: Admitting Provider Internal Medicine; Emergency Provider Emergency Medicine; PCP Family Medicine; Visit Provider Internal Medicine
DX: I95.9 Hypotension, unspecified (principal); N17.9 Acute kidney failure, unspecified; Z23 Encounter for immunization; N18.2 Chronic kidney disease, stage 2 (mild); J44.9 Chronic obstructive pulmonary disease, unspecified; J96.11 Chronic respiratory failure with hypoxia; I50.32 Chronic diastolic (congestive) heart failure; F17.210 Nicotine dependence, cigarettes, uncomplicated; E11.22 Type 2 diabetes mellitus with diabetic chronic kidney disease; E11.40 Type 2 diabetes mellitus with diabetic neuropathy, unspecified; I25.2 Old myocardial infarction; I25.10 Atherosclerotic heart disease of native coronary artery without angina pectoris; E78.5 Hyperlipidemia, unspecified; I27.21 Secondary pulmonary arterial hypertension; I48.0 Paroxysmal atrial fibrillation; I48.3 Typical atrial flutter; I13.0 Hypertensive heart and chronic kidney disease with heart failure and stage 1 through stage 4 chronic kidney disease, or unspecified chronic kidney disease; R56.9 Unspecified convulsions; F32.A Depression, unspecified; G47.33 Obstructive sleep apnea (adult) (pediatric); Z79.899 Other long term (current) drug therapy; Z79.02 Long term (current) use of antithrombotics/antiplatelets; Z79.4 Long term (current) use of insulin; Z79.82 Long term (current) use of aspirin; Z79.52 Long term (current) use of systemic steroids; N40.0 Benign prostatic hyperplasia without lower urinary tract symptoms; G25.81 Restless legs syndrome
CPT/HCPCS: 36415; 71045; 80048; 80053; 81001; 82962; 83605; 83735; 84100; 84484; 85025; 87040; 87426; 93005; 94640; 96360; 96361; 96372; 99218; 99251; 99285; 99406; J7030; J7120; 90686; A4216; G0378; G0463

== ENCOUNTER → 2021-10-23 10:26 | Outpatient (CLI) | payer MEDICAID, SELFPAY ==
[2021-10-23 12:19] LABS: Absolute Neutrophil Count 7.3 X10^3/uL (2.0-7.7); Basophil# 0.05 X10^3/uL; Basophil% 0.5 % (0-1); Eosinophil# 0.19 X10^3/uL; Hematocrit 33.9 % (40-54); Hemoglobin 10.9 g/dL (13.0-16.5); Lymphocyte % 12.5 % (19-41); Mean Corp Hgb Conc 32.2 g/dL (32-36); Mean Corpuscular Hgb 31.5 pg (27.0-32.0); Mean Platelet Vol. 10.3 fl (6.2-12.0); Monocyte# 0.81 X10^3/uL; Monocyte% 8.4 % (0-10); NRBC Flagged by Analyzer 0 % (0-5); Neutrophil # 7.34 X10^3/uL (2.7-7.7); Neutrophil % 76.4 % (47-70); POSITIVE MORPHOLOGY YES; Platelet Count 245 K/mm3 (150-450); RBC Distribution Width CV 18.4 % (11.6-14.6); RBC Distribution Width SD 65.3 fl (35.1-43.9); Red Blood Count 3.46 M/mm3 (4.6-6.2); White Blood Count 9.6 K/mm3 (4.4-11.0)
[2021-10-23 12:23] LABS: Differential Indicated SCAN CRITERIA MET
[2021-10-23 12:47] LABS: ALB/GLOB Ratio 0.7 RATIO (0.9-2.4); AST(SGOT) 13 U/L (15-37); Alanine Aminotransfer ALT/SGPT 18 U/L (16-61); Albumin, Serum 3.1 g/dL (3.2-5.0); Alkaline Phosphatase 82 U/L (45-117); Anion Gap 13 (5-15); BUN 16 mg/dL (7-18); Calcium,Total 9.4 mg/dL (8.5-10.1); Chloride 101 mmol/L (98-107); Creatinine, Serum 1.14 mg/dL (0.70-1.30); EST Glomerular Filtration Rate 71 mL/min (>60); Est Glom Filt Rate - Afr Amer 85 mL/min (>60); Ferritin 77 ng/mL (26-388); Globulin 4.5 g/dL (2.2-4.2); Glucose 141 mg/dL (74-106); Iron 35 ug/dL (65-175); Iron Binding Capacity,Total 372 ug/dL (250-450); PERCENT IRON SATURATION 9.4 % (15.0-55.0); Potassium 3.3 mmol/L (3.5-5.1); Protein, Total 7.6 g/dL (6.4-8.2); Sodium Level 140 mmol/L (136-145)
[2021-10-23 12:57] LABS: Vitamin B12 466 pg/mL (211-911)
[2021-10-23 12:58] LABS: Hemoglobin A1c 5.7 % (3.8-5.6)
[2021-10-23 13:01] LABS: Anisocytosis 2+; Differential Comment SCANNED
== END ==
PROVIDERS: PCP Family Medicine; Referring Provider Family Medicine; Visit Provider Family Medicine
DX: D64.9 Anemia, unspecified (principal); E11.9 Type 2 diabetes mellitus without complications
CPT/HCPCS: 36415; 80053; 82607; 82728; 82746; 83036; 83540; 83550; 85025

== ENCOUNTER 2021-12-17 10:18 | Emergency (ER) | payer MEDICAID, SELFPAY ==
[2021-12-17 10:18] VITALS: BP 127/49; PULSE 149; RESP 18; TEMP 36.1; O2SAT 100; BMI 26.9
--- NOTE | 2021-12-17 11:34 | ART_ITS ---
Reason For Study: Claudication Procedure A bilateral lower extremity continuous wave Doppler with analog waveform analysis,segmental pressures,and ankle brachial indexes without exercise. Left Segmental Pressures Left brachial= 143mmHg. Left thigh = 104mmHg. Left calf = 84mmHg. Left posterior tibial artery = 91mmHg. Left dorsalis pedis artery = 79mmHg. Left digit = 82 mmHg. Right Segmental Pressures Right brachial= 132mmHg. Right thigh = 83mmHg. Right calf = 52mmHg. Right posterior tibial artery = 55mmHg. Right dorsalis pedis artery = 55mmHg. The right dorsalis pedis waveforms are monophasic. The right posterior tibial artery waveforms are monophasic. Indices The right ankle brachial index by the dorsalis pedis is 0.38. The right ankle brachial index by the posterior tibial artery is 0.38. The left ankle brachial index by the dorsalis pedis is 0.55. The left ankle brachial index by the posterior tibial artery is 0.64. The left digital-brachial index is 0.57. VL/Lower Ext Art Exam w/o Exercis Interpretation Summary Right leg with severe occlusive disease with monophasic flow and an TAMEKA 0.38. L eft leg with moderate occlusive disease with monophasic flow and an TAMEKA 0.64. Ordering Physician: Christina Lomas Referring Physician: Blaze Louis Performed By: Lea Goldstein RVT
--- NOTE | 2021-12-17 11:36 | EKG12_ITS ---
Test Reason : OTHER PAIN Blood Pressure : / mmHG Vent. Rate : 086 BPM Atrial Rate : 156 BPM P-R Int : 000 ms QRS Dur : 082 ms QT Int : 382 ms P-R-T Axes : 000 038 090 degrees QTc Int : 457 ms Sinus rhythm Nonspecific ST and T wave abnormality Abnormal ECG Confirmed by JHON LOMELI, SMITA ([id number]), pictures editor CANDICE ZAZUETA ([id number]) on 12/18/2021 10:08:41 AM Referred By: PERRY Confirmed By:SMITA FERREIRA MD
--- NOTE | 2021-12-17 11:37 | EX.ED.DYSGE1 ---
HPI History of Present Illness Chief Complaint: Other, Pain/Inj Informant: patient Onset/Context/Timing Onset: Days Context: Gradual Onset Timing: Waxes and wanes Current Severity: Moderate Maximum Severity: Severe Narrative Narrative: Patient presents secondary to severe right lower extremity pain. He has a history of peripheral artery disease and is concerned that his leg is clotted off. He recently had carotid endarterectomy with Dr. Mcdonald. He is not currently on anticoagulants. [facility] Medical History (HFpEF) heart failure with preserved ejection fraction Acute hypotension Acute repetitive seizure Atherosclerosis of coronary artery bypass graft without angina pectoris Atherosclerosis of coronary artery of chilkoot heart without angina pectoris Chest wall contusion Chronic anticoagulation Chronic obstructive pulmonary disease Diabetes mellitus Essential hypertension Fall from slip, trip, or stumble Fracture of rib Hyperlipidemia Leg swelling Lower extremity edema Major depression Metatarsal bone fracture Nicotine abuse KENNETH and COPD overlap syndrome Paroxysmal atrial fibrillation Rectal bleeding Secondary pulmonary arterial hypertension Smoking greater than 40 pack years Suicidal ideation Syncope Typical atrial flutter Home Medications gabapentin 1,200 mg PO TIDCM 12/07/15 [History Last Taken 10/17/21] albuterol sulfate 1 dose IH Q4H PRN PRN 11/09/19 [History Last Taken 10/17/21] albuterol sulfate 2 puff INHALATION Q6H PRN PRN 11/09/19 [History Last Taken 10/17/21] nitroglycerin 0.4 mg SUBLINGUAL PRN PRN 11/09/19 [History Last Taken 12/18/20] pantoprazole 40 mg tablet,delayed release 40 mg PO DAILY 11/11/19 [History Last Taken 10/17/21] pregabalin 100 mg capsule 100 mg PO TID cap 11/11/19 [History Last Taken 10/17/21] trazodone 150 mg tablet 150 mg PO QHS 11/11/19 [History Last Taken 10/16/21] aspirin 81 mg tablet,delayed release 81 mg PO DAILY 05/24/20 [History Last Taken 10/17/21] insulin glargine 20 units SC BREAKFAST 12/18/20 [History Last Taken 10/17/21] tamsulosin 0.4 mg PO DAILY@1730 12/18/20 [History Last Taken 10/16/21] atorvastatin 80 mg tablet 80 mg PO QHS #90 tab 01/29/21 [Rx Last Taken 10/16/21] clopidogrel 75 mg tablet 75 mg PO DAILY #90 tab 01/29/21 [Rx Last Taken 10/17/21] ezetimibe 10 mg tablet 10 mg PO DAILY #90 tab 01/29/21 [Rx Last Taken 10/17/21] isosorbide mononitrate 120 mg tablet,extended release 24 hr 120 mg PO DAILY #90 tab 01/29/21 [Rx Last Taken 10/17/21] lisinopril 10 mg tablet 10 mg PO DAILY #90 tab 01/29/21 [Rx Last Taken 10/17/21] metoprolol succinate 100 mg tablet,extended release 24 hr 100 mg PO DAILY #90 tab 01/29/21 [Rx Last Taken 10/17/21] sotalol 120 mg tablet 120 mg PO BID #180 tab 01/29/21 [Rx Last Taken 10/17/21] levetiracetam [Keppra] 500 mg PO BID #60 tab 04/19/21 [Rx Last Taken 10/17/21] budesonide-formoterol HFA 160 mcg-4.5 mcg/actuation aerosol inhaler 2 puff INHALATION BID #10.2 g 05/30/21 [Rx Last Taken 10/17/21] duloxetine 30 mg capsule,delayed release 30 mg PO QAM #30 cap 09/30/21 [Rx Last Taken 10/17/21] duloxetine 60 mg capsule,delayed release 60 mg PO QPM #30 cap 09/30/21 [Rx Last Taken 10/17/21] pyridoxine (vitamin B6) 50 mg tablet 50 mg PO DAILY #30 tab 09/30/21 [Rx Last Taken 10/17/21] cyanocobalamin (vitamin B-12) 1,000 mcg tablet 1,000 mcg PO DAILY #30 tab 10/01/21 [Rx Last Taken 10/17/21] loratadine 10 mg PO DAILY 10/17/21 [History Last Taken 10/17/21] oxycodone 5 mg PO Q6H PRN PRN 10/17/21 [History Last Taken 10/17/21] ropinirole 0.5 mg PO QHS 10/17/21 [History Last Taken 10/16/21] furosemide 40 mg PO DAILY #0 tab 10/18/21 [Rx Last Taken 10/17/21] promethazine 25 mg PO Q6H PRN #20 tab 12/17/21 [Rx Last Taken Unknown] Allergy/AdvReac Type Severity Reaction Status Date / Time seasonal Allergy SOB Uncoded 12/17/21 10:33 Family History Father CAD (coronary artery disease) COPD (chronic obstructive pulmonary disease) CHF (congestive heart failure) CVA (cerebral vascular accident) Mother COPD (chronic obstructive pulmonary disease) Other Neuropathy Surgical History H/O coronary artery bypass surgery (10/2005) History of coronary artery stent placement (01/05/14) History of left heart catheterization (12/20/20) History of loop recorder (2015) History of open reduction and internal fixation (ORIF) procedure Social History household members: significant other and other housing: house number of children: 2 Smoking Status: Current every day smoker tobacco type: cigarettes Electronic Cigarette Use: not used second hand exposure: No alcohol intake: current alcohol intake frequency: a few times a month Alcohol type: beer, wine and hard liquor substance use type: marijuana caffeine: Yes Type: coffee what type of physical activity do you participate in: walking frequency: daily duration: < 15 minutes/day seatbelt use: always do you feel safe at home: Yes ROS ROS ED Constitutional Constitutional ED: Denies chills or fever(s) Eyes Eyes: Denies change in vision ENT ENT ED: Denies sore throat Cardiovascular Cardiovascular: Denies chest pain Respiratory/Chest Respiratory/Chest: Denies cough or dyspnea Gastrointestinal Gastrointestinal: Denies abdominal pain, diarrhea, nausea or vomiting Musculoskeletal Musculoskeletal: Reports arthralgias; Denies back pain Integumentary Denies rash Neurologic Neurologic: Denies headache(s) or weakness Allergic/Immunologic Allergic/Immunologic ED: Denies urticaria EXAM Physical Exam Const Vital Signs: 12/17/21 10:18 Temperature 97.0 F L Temperature Source Temporal Pulse Rate 149 H Respiratory Rate 18 Blood Pressure 127/49 H Blood Pressure Mean 75 Pulse Ox 100 Oxygen Delivery Method Room Air Positive well nourished and well developed General Appearance ED: well developed HEENT Reports moist mucous membranes Eyes PERRL and EOMs intact bilaterally Neck supple Chest Wall inspection of chest normal and palpation of chest normal Resp normal respiratory effort and clear to auscultation bilaterally Cardio regular rate and regular rhythm GI Palpation: soft Extremity Extremity Narrative: Muscular tenderness throughout the right lower extremity. Faint distal pulses. Good cap refill. Left lower extremity is in walking boot secondary to prior pilon fracture. Neuro oriented x3 Sensorium / Orientation: alert Psych mental status grossly normal Skin no rashes or lesions noted MDM MDM MDM Narrative Medical decision making narrative: EKG was obtained because patient was documented with a heart rate of 149 in triage. Arterial study of the right lower extremity ordered. Patient given 1 mg of IM Dilaudid for pain control. EKG Initial EKG: Interpretation: Sinus Rhythm (Sinus 86. Nonspecific T wave flattening.) Treatment and Re-Evaluation Comments:: Arterial studies reveal an TAMEKA on the right of 0.38. It was 0.36 in May 2020. Left TAMEKA 0.64. In May 2020 it was 0.83. The tech actually saw Dr. Mcdonald at the hospital and quickly showed him the test results. He told her that was the patient's baseline. I was able to confirm this with reviewing prior study in the computer. Patient will be discharged with a prescription for Zofran. He has oxycodone at home but states he cannot take it because it makes him nauseated. I encouraged him to take the nausea medication and then 20 minutes later to eat when he takes pain meds. This should help. Patient is to follow-up with Dr. Mcdonald. Discharge Plan Triage Chief Complaint: Other, Pain/Inj ED Provider: Christina Lomas Dx/Rx/DC Orders Clinical Impression: Peripheral arterial disease Instructions: ED Peripheral Artery Disease (PAD) Prescriptions: New promethazine 25 mg tablet 25 mg PO Q6H PRN (Reason: nausea) Qty: 20 RF: 0 No Action trazodone 150 mg tablet 150 mg PO QHS RF: 0 pantoprazole [Protonix] 40 mg tablet,delayed release (DR/EC) 40 mg PO DAILY RF: 0 pregabalin [Lyrica] 100 mg capsule 100 mg PO TID RF: 0 aspirin [Adult Aspirin Regimen] 81 mg tablet,delayed release (DR/EC) 81 mg PO DAILY RF: 0 atorvastatin 80 mg tablet 80 mg PO QHS Qty: 90 RF: 3 clopidogrel 75 mg tablet 75 mg PO DAILY Qty: 90 RF: 3 ezetimibe 10 mg tablet 10 mg PO DAILY Qty: 90 RF: 3 isosorbide mononitrate 120 mg tablet extended release 24 hr 120 mg PO DAILY Qty: 90 RF: 3 lisinopril 10 mg tablet 10 mg PO DAILY Qty: 90 RF: 3 metoprolol succinate 100 mg tablet extended release 24 hr 100 mg PO DAILY Qty: 90 RF: 3 sotalol 120 mg tablet 120 mg PO BID Qty: 180 RF: 3 budesonide-formoterol 160-4.5 mcg/actuation HFA aerosol inhaler 2 puff INHALATION BID Qty: 10.2 RF: 5 pyridoxine (vitamin B6) 50 mg tablet 50 mg PO DAILY Qty: 30 RF: 2 duloxetine 30 mg capsule,delayed release(DR/EC) 30 mg PO QAM Qty: 30 RF: 2 duloxetine 60 mg capsule,delayed release(DR/EC) 60 mg PO QPM Qty: 30 RF: 1 cyanocobalamin (vitamin B-12) 1,000 mcg tablet 1,000 mcg PO DAILY Qty: 30 RF: 2 gabapentin 600 MG tablet 1,200 mg PO TIDCM RF: 0 albuterol sulfate 2.5 MG/3 ML solution for nebulization 1 dose IH Q4H PRN PRN (Reason: Sob &/Or Wheezing) RF: 0 nitroglycerin 0.4 MG tablet, sublingual 0.4 mg sublingual PRN PRN (Reason: chest pain) RF: 0 albuterol sulfate 1 PUFF inhaler 2 puff INHALATION Q6H PRN PRN (Reason: Sob &/Or Wheezing) RF: 0 tamsulosin 0.4 MG capsule 0.4 mg PO DAILY@1730 RF: 0 insulin glargine 100 UNITS/ML insulin pen 20 units SC BREAKFAST RF: 0 levetiracetam [Keppra] 500 mg tablet 500 mg PO BID Qty: 60 RF: 0 ropinirole 0.5 mg tablet 0.5 mg PO QHS RF: 0 loratadine 10 mg Tablet 10 mg PO DAILY RF: 0 oxycodone 5 mg tablet 5 mg PO Q6H PRN PRN (Reason: Pain) RF: 0 furosemide 40 mg tablet 40 mg PO DAILY Qty: 0 RF: 0 Primary Care Provider: Blaze Louis Referrals: Stephan Mcdonald MD [STAFF PHYSICIAN] - As soon as possible Blaze Louis MD [Primary Care Provider] - Disposition Disposition: Home, Self Care
[2021-12-17] MEDS: HYDROmorphone 1 MG/ML Syringe IM (11:56)
[2021-12-17 13:43] VITALS: BP 148/68; PULSE 72; RESP 16; O2SAT 96
--- NOTE | 2021-12-17 13:53 | ED.RN ---
PT REQUESTS PAIN MEDICATION SCRIPT. STATES HE HAS BEEN ON OXYCODONE PER PHYSICIAN BUT THAT THAT IS DONE. PHYSICIAN BACK TO TALK TO PT. PT STATES HE HAS NOT HAD A SCRIPT AND DID NOT KNOW THAT HE HAD A SCRIPT WAITING AT THE PHARMACY.
== END 2021-12-17 13:48 | disposition home or self-care (01) ==
PROVIDERS: Emergency Provider Emergency Medicine; PCP Family Medicine; Visit Provider Emergency Medicine
DX: E11.51 Type 2 diabetes mellitus with diabetic peripheral angiopathy without gangrene (principal); J44.9 Chronic obstructive pulmonary disease, unspecified; I11.0 Hypertensive heart disease with heart failure; I50.32 Chronic diastolic (congestive) heart failure; I27.21 Secondary pulmonary arterial hypertension; I48.0 Paroxysmal atrial fibrillation; Z79.4 Long term (current) use of insulin; F12.90 Cannabis use, unspecified, uncomplicated; E78.5 Hyperlipidemia, unspecified; F17.210 Nicotine dependence, cigarettes, uncomplicated; I25.10 Atherosclerotic heart disease of native coronary artery without angina pectoris; F32.A Depression, unspecified; G47.33 Obstructive sleep apnea (adult) (pediatric); Z79.82 Long term (current) use of aspirin; Z79.899 Other long term (current) drug therapy; Z95.1 Presence of aortocoronary bypass graft
CPT/HCPCS: 93005; 93923; 96372; 99282

== ENCOUNTER 2022-01-09 13:15 | Outpatient (CLI) | payer MEDICAID, SELFPAY ==
--- NOTE | 2022-01-09 13:30 | CT_ITS ---
STUDY: CTA OF THE ABDOMINAL AORTA AND BILATERAL LOWER EXTREMITIES REASON FOR EXAM: Male, 56 years old. Arterial stricture. RADIATION DOSAGE (If Supplied By Facility): CTDIvol = ( 8.39 ) mGy, DLP = ( 1198.37 ) mGycm TECHNIQUE: Axial CT angiography multi-detector data acquisition was obtained from the diaphragm to the feet following intravenous administration of IV 100mL Isovue-370. Axial images and MIP images were reconstructed from the axial data set. Post-processing of the angiographic images was performed, with multiplanar reformation and 3D reconstruction. Individualized dose optimization techniques were used for this CT. TECHNICAL QUALITY: Good COMPARISON: CT of the abdomen and pelvis, 06/28/2020 Descriptors of Narrowing: None (0%) Mild (< 50%) Moderate (50-70%) Severe (70-90%) Subtotal/Total Occlusion (90-100%) Non-Evaluable (technically non-diagnostic FINDINGS: Abdominal aorta: Atherosclerotic changes of the abdominal aorta. There is no dissection or aneurysm. No stricture. Celiac and superior mesenteric arteries: Normal atherosclerotic changes at the origin of the celiac artery. The SMA is unremarkable. Inferior mesenteric artery: No demonstrated narrowing. Right renal artery(arteries): No demonstrated narrowing. Left renal artery(arteries): No demonstrated narrowing. Right common iliac artery: Atherosclerotic changes with moderate stenosis. Right external iliac artery: Atherosclerotic changes with mild stenosis. Right internal iliac artery: Atherosclerotic changes with moderate stenosis. Left common iliac artery: Atherosclerotic changes with mild stenosis. Left external iliac artery: Atherosclerotic changes with mild to moderate stenosis. Left internal iliac artery: Atherosclerotic changes with moderate stenosis. RIGHT LOWER EXTREMITY Right common femoral artery: Marked atherosclerotic changes with severe stenosis. Right profundus femoris: No demonstrated narrowing. Right superficial femoral: There are atherosclerotic changes. There is occlusion of the vessel in its midportion 200 canal. Right popliteal artery: Popliteal artery is supplied via collaterals. Minimal atherosclerotic changes without stenosis. Right tibioperoneal trunk: Mild atherosclerotic changes without stenosis. Right anterior tibial artery: No demonstrated narrowing. Right posterior tibial artery: No demonstrated narrowing. Right peroneal artery: No demonstrated narrowing. LEFT LOWER EXTREMITY Left common femoral artery: Atherosclerotic changes with mild stenosis.. Left profundus femoris: No demonstrated narrowing. Left superficial femoral: Scattered atherosclerotic changes without evidence of significant stenosis. Left popliteal artery: Scattered atherosclerotic changes with mild stenosis. Left tibioperoneal trunk: No demonstrated narrowing. Left anterior tibial artery: No demonstrated narrowing. Left posterior tibial artery: No demonstrated narrowing. Left peroneal artery: No demonstrated narrowing. Moderate right pleural effusion with subsegmental atelectasis. The heart is normal in size. Normal liver. Normal gallbladder and biliary ductal system. Normal spleen. Normal pancreas. There is a large heterogenous mass in the right adrenal gland measuring 3.7 x 2.5 x 4.6 cm. This most likely represents an adenoma. Normal left adrenal gland. Normal right kidney. There is a 3.4 cm cyst off the lower pole but otherwise normal left kidney. Normal bilateral ureters. Normal IVC and retroperitoneum. Normal stomach. Normal small bowel. Normal colon. The appendix is not visualized. Normal urinary bladder. There are calcifications centrally within a normal size prostate. No pelvic lymphadenopathy. No free air or free fluid is seen within the peritoneal cavity. Evidence of median sternotomy. The abdominal wall is unremarkable. There are degenerative changes of the lumbar spine and hips. There is evidence of surgical fusion of the left ankle. CT/CTA Abd w/Runoff W/WO Contrast IMPRESSION: 1. Atherosclerotic changes of the abdominal aorta without aneurysm or dissection. 2. Moderate stenosis of the bilateral common iliac arteries. 3. Severe stenosis of the right common femoral artery with occlusion of the mid to lower right common femoral artery. The popliteal and calf vessels appear normal. 4. Mild scheduled atherosclerotic changes left lower extremity without significant stenosis. 5. Pleural effusion. 6. Right adrenal mass. Electronically Signed: Alfred Grajeda DO at 22:17 EST Reading Location ID and State: [address] [place] [address] Tel [phone], Service support ,
[2022-01-09 13:56] LABS: CREATININE FINGERSTICK 1.6 mg/dL (0.70-1.30)
== END 2022-01-09 23:59 | disposition home or self-care (01) ==
LOC: CT 13:16
PROVIDERS: PCP Family Medicine; Referring Provider Surgery Vascular Surgery; Visit Provider Surgery Vascular Surgery
DX: I77.1 Stricture of artery (principal); I70.213 Atherosclerosis of native arteries of extremities with intermittent claudication, bilateral legs; E11.9 Type 2 diabetes mellitus without complications; I65.23 Occlusion and stenosis of bilateral carotid arteries; F17.200 Nicotine dependence, unspecified, uncomplicated; E78.70 Disorder of bile acid and cholesterol metabolism, unspecified; F10.10 Alcohol abuse, uncomplicated; I51.9 Heart disease, unspecified
CPT/HCPCS: 75635; Q9967

== ENCOUNTER 2022-02-06 12:06 | Inpatient (IN) | payer MEDICAID, SELFPAY ==
[2022-02-06] VITALS (19 sets, daily range): BP systolic 91–133; BP diastolic 33–74; PULSE 65–78; RESP 14–23; TEMP 35.9–36.7; O2SAT 94–100; BMI 25.5; BMI 25.0
--- NOTE | 2022-02-06 12:54 | CT_ITS ---
STUDY: CTA OF THE ABDOMINAL AORTA AND BILATERAL LOWER EXTREMITIES REASON FOR EXAM: Male, 56 years old. Right lower extremity pain. History of falls. RADIATION DOSAGE (If Supplied By Facility): CTDIvol = ( 11.93 ) mGy, DLP = ( 1076.75 ) mGycm TECHNIQUE: Axial CT angiography multi-detector data acquisition was obtained from the dome of the liver to the level of the ankles following intravenous administration of IV 100mL Isovue-370. Axial images and MIP images were reconstructed from the axial data set. Post-processing of the angiographic images was performed, with multiplanar reformation and 3D reconstruction. Individualized dose optimization techniques were used for this CT. TECHNICAL QUALITY: Good COMPARISON: Comparison is made with prior study dated 01/09/2022. Descriptors of Narrowing: None (0%) Mild (< 50%) Moderate (50-70%) Severe (70-90%) Subtotal/Total Occlusion (90-100%) Non-Evaluable (technically non-diagnostic FINDINGS: Coronary artery calcification. Mild degree of increased markings at the lung bases suggestive of linear atelectasis and/or scarring. Diffuse fatty infiltration of the liver. There is a 3.6 cm x 2.6 cm solid nodule in the right adrenal gland. A neoplastic process should be ruled out. Small nonobstructive right intrarenal calculi. There is a 4.97 m cyst in the lower pole of the left kidney. Scattered retroperitoneal lymphadenopathy. These measure less than 1.5 cm. Prostatic calcification. Abdominal aorta: Nonstenotic calcific plaques throughout the aorta. Celiac and superior mesenteric arteries: Nonstenotic atherosclerotic plaques at the origin of the superior mesenteric and celiac arteries and their branches. Inferior mesenteric artery: No demonstrated narrowing. Right renal artery(arteries): Nonstenotic calcific plaques at the origin of the right renal artery. Left renal artery(arteries): Atherosclerotic calcific plaque at the origin of the left renal artery. Right common iliac artery: Dense calcific plaques with moderate stenosis. Right external iliac artery: Calcific plaques with mild to moderate degree of stenosis. Right internal iliac artery: No demonstrated narrowing. Left common iliac artery: Atherosclerotic plaques with mild to moderate degree of stenosis. Left external iliac artery: Atherosclerotic plaques with mild to moderate degree of stenosis. Left internal iliac artery: No demonstrated narrowing. RIGHT LOWER EXTREMITY Right common femoral artery: Calcific plaques with marked degree of stenosis. Right profundus femoris: No demonstrated narrowing. Right superficial femoral: There is occlusion of the superficial femoral artery in its midportion. Right popliteal artery: Popliteal artery is reconstituted via collateral circulation. Right tibioperoneal trunk: No demonstrated narrowing. Right anterior tibial artery: No demonstrated narrowing. Right posterior tibial artery: No demonstrated narrowing. Right peroneal artery: No demonstrated narrowing. LEFT LOWER EXTREMITY Left common femoral artery: Mild stenosis Left profundus femoris: No demonstrated narrowing. Left superficial femoral: Scattered atherosclerotic plaque formation without significant stenosis. Left popliteal artery: Scattered atherosclerotic changes with mild stenosis. Left tibioperoneal trunk: No demonstrated narrowing. Left anterior tibial artery: No demonstrated narrowing. Left posterior tibial artery: No demonstrated narrowing. Left peroneal artery: No demonstrated narrowing. CT/CTA Abd w/Runoff W/WO Contrast IMPRESSION: Occlusion of the right superficial femoral artery in its midportion with reconstitution of the popliteal artery. Severe stenosis of the right common femoral artery with occlusion of its distal portion. Right adrenal mass. Electronically Signed: Harry Voss MD at 15:07 EST ,
--- NOTE | 2022-02-06 12:56 | EX.ED.DYSGE1 ---
HPI History of Present Illness Chief Complaint: Lower Extremity Injury Narrative Narrative: Patient presents with right leg pain, this is relatively chronic however he feels the pain is somewhat worse today. He has had recent imaging that shows severe right femoral occlusion, this was a month ago however after I discussed with Dr. Mcdonald he told me that he has missed his last 3 vascular appointments. Patient has no abdominal pain. No recent fever or chills. [facility] Medical History (HFpEF) heart failure with preserved ejection fraction Acute hypotension Acute repetitive seizure Atherosclerosis of coronary artery bypass graft without angina pectoris Atherosclerosis of coronary artery of [place] heart without angina pectoris Chest wall contusion Chronic anticoagulation Chronic obstructive pulmonary disease Diabetes mellitus Essential hypertension Fall from slip, trip, or stumble Fracture of rib Hyperlipidemia Leg swelling Lower extremity edema Major depression Metatarsal bone fracture Nicotine abuse KENNETH and COPD overlap syndrome Paroxysmal atrial fibrillation Rectal bleeding Secondary pulmonary arterial hypertension Smoking greater than 40 pack years Suicidal ideation Syncope Typical atrial flutter Home Medications gabapentin 1,200 mg PO TIDCM 12/07/15 [History Last Taken 10/17/21] albuterol sulfate 1 dose IH Q4H PRN PRN 11/09/19 [History Last Taken 10/17/21] albuterol sulfate 2 puff INHALATION Q6H PRN PRN 11/09/19 [History Last Taken 10/17/21] nitroglycerin 0.4 mg SUBLINGUAL PRN PRN 11/09/19 [History Last Taken 12/18/20] pantoprazole 40 mg tablet,delayed release 40 mg PO DAILY 11/11/19 [History Last Taken 10/17/21] pregabalin 100 mg capsule 100 mg PO TID cap 11/11/19 [History Last Taken 10/17/21] trazodone 150 mg tablet 150 mg PO QHS 11/11/19 [History Last Taken 10/16/21] aspirin 81 mg tablet,delayed release 81 mg PO DAILY 05/24/20 [History Last Taken 10/17/21] insulin glargine 20 units SC BREAKFAST 12/18/20 [History Last Taken 10/17/21] tamsulosin 0.4 mg PO DAILY@1730 12/18/20 [History Last Taken 10/16/21] isosorbide mononitrate 120 mg tablet,extended release 24 hr 120 mg PO DAILY #90 tab 01/29/21 [Rx Last Taken 10/17/21] sotalol 120 mg tablet 120 mg PO BID #180 tab 01/29/21 [Rx Last Taken 10/17/21] levetiracetam [Keppra] 500 mg PO BID #60 tab 04/19/21 [Rx Last Taken 10/17/21] budesonide-formoterol HFA 160 mcg-4.5 mcg/actuation aerosol inhaler 2 puff INHALATION BID #10.2 g 05/30/21 [Rx Last Taken 10/17/21] duloxetine 60 mg capsule,delayed release 60 mg PO QPM #30 cap 09/30/21 [Rx Last Taken 10/17/21] pyridoxine (vitamin B6) 50 mg tablet 50 mg PO DAILY #30 tab 09/30/21 [Rx Last Taken 10/17/21] cyanocobalamin (vitamin B-12) 1,000 mcg tablet 1,000 mcg PO DAILY #30 tab 10/01/21 [Rx Last Taken 10/17/21] loratadine 10 mg PO DAILY 10/17/21 [History Last Taken 10/17/21] oxycodone 5 mg PO Q6H PRN PRN 10/17/21 [History Last Taken 10/17/21] ropinirole 0.5 mg PO QHS 10/17/21 [History Last Taken 10/16/21] furosemide 40 mg PO DAILY #0 tab 10/18/21 [Rx Last Taken 10/17/21] promethazine 25 mg PO Q6H PRN #20 tab 12/17/21 [Rx Last Taken Unknown] duloxetine 30 mg capsule,delayed release 30 mg PO QAM #30 cap 12/24/21 [Rx Last Taken Unknown] atorvastatin 80 mg tablet 80 mg PO QHS #90 tab 01/17/22 [Rx Last Taken Unknown] clopidogrel 75 mg tablet 75 mg PO DAILY #90 tab 01/17/22 [Rx Last Taken Unknown] ezetimibe 10 mg tablet 10 mg PO DAILY #90 tab 01/17/22 [Rx Last Taken Unknown] lisinopril 10 mg tablet 10 mg PO DAILY #90 tab 01/17/22 [Rx Last Taken Unknown] metoprolol succinate 100 mg tablet,extended release 24 hr 100 mg PO DAILY #90 tab 01/17/22 [Rx Last Taken Unknown] Allergy/AdvReac Type Severity Reaction Status Date / Time seasonal Allergy SOB Uncoded 02/06/22 12:13 Family History Father CAD (coronary artery disease) COPD (chronic obstructive pulmonary disease) CHF (congestive heart failure) CVA (cerebral vascular accident) Mother COPD (chronic obstructive pulmonary disease) Other Neuropathy Surgical History H/O coronary artery bypass surgery (10/2005) History of coronary artery stent placement (01/05/14) History of left heart catheterization (12/20/20) History of loop recorder (2015) History of open reduction and internal fixation (ORIF) procedure Social History household members: significant other and other housing: house number of children: 2 Smoking Status: Current every day smoker tobacco type: cigarettes Electronic Cigarette Use: not used second hand exposure: No alcohol intake: current alcohol intake frequency: a few times a month Alcohol type: beer, wine and hard liquor substance use type: marijuana caffeine: Yes Type: coffee what type of physical activity do you participate in: walking frequency: daily duration: < 15 minutes/day seatbelt use: always do you feel safe at home: Yes ROS ROS ED ROS Narrative Past medical history: Reviewed, it is quite extensive, includes 40-year smoking history, neuropathy, chest pain, palpitations, severe peripheral vascular disease, coronary artery disease, pulmonary hypertension, atrial flutter, COPD, diabetes, hyperlipidemia Medications: Reviewed Social history: Noncontributory Review of systems: All systems negative except as indicated General: No fever Eyes: No visual changes ENT: No upper airway congestion, normal voice Neck: No neck pain Cardiovascular: No current chest pain Respiratory: No shortness of breath or cough Gastrointestinal: No abdominal pain, nausea vomiting or diarrhea Genitourinary: No dysuria Musculoskeletal: Right leg pain as in HPI Skin: No rash Neurological: No memory loss, confusion or any focal weakness Psych: No recent behavioral changes Hematologic: No easy bleeding or easy bruising EXAM Physical Exam Narrative Exam Narrative: Physical exam General: Patient appears chronically ill, he does appear in pain. Head: Normocephalic, Atraumatic Eyes: Conjunctiva not pale ENT: Moist mucous membranes Neck: Supple, Nontender, No lymphadenopathy Cardiovascular: Slightly irregular no obvious murmur Respiratory: Coarse bilateral breath sounds Abdomen: Soft, Nontender, Nondistended Back: Nontender, Normal Inspection. Negative for: CVA tenderness Extremities: Patient has tenderness in his right foot, it is cool to the touch but not cyanotic. He can move the foot. I cannot get Doppler pulses. Skin: Normal color of the foot, No rash Neurological: Alert, Normal Strength, Normal Sensation Psychological: Anxious appearing Const Vital Signs: 02/06/22 12:08 Temperature 96.9 F L Temperature Source Temporal Pulse Rate 65 Respiratory Rate 14 Blood Pressure 91/46 L Blood Pressure Mean 61 Pulse Ox 100 Oxygen Delivery Method Room Air MDM MDM MDM Narrative Medical decision making narrative: Patient is found to have low hemoglobin which likely explains the worsening leg ischemia. I did discuss with Dr. Mcdonald who will consult on the patient, however right now he is guaiac positive and has anemia I will transfuse and he will need a GI consult. Patient will be admitted. Lab Data Labs: Laboratory Results - last 24 hr 02/06/22 02/06/22 02/06/22 12:55 12:55 12:55 WBC 12.9 H RBC 2.43 L Hgb 5.6 L* Hct 21.6 L MCV 88.9 MCH 23.0 L MCHC 25.9 L RDW Std Deviation 62.4 H RDW Coeff of Arleen 19.3 H Plt Count 360 MPV 10.2 Immature Gran % (Auto) 1.000 H Neut % (Auto) 78.5 H Lymph % (Auto) 6.8 L [place] % (Auto) 12.8 H Eos % (Auto) 0.2 Baso % (Auto) 0.7 Absolute Neuts (auto) 10.1 H Absolute Lymphs (auto) 0.88 Nucleated RBC % 2.3 [address] Path Review May foll Hypochromasia 2+ Anisocytosis 1+ [place] Cells RARE Schistocytes 1+ PT 16.6 H INR 1.4 Sodium 133 L Potassium 5.2 H Chloride 103 Carbon Dioxide 14.0 L Anion Gap 16 H BUN 29 H Creatinine 1.54 H Estim Creat Clear Calc 55.30 Est GFR (MDRD) Af Amer 60 Est GFR (MDRD) Non-Af 50 L BUN/Creatinine Ratio 18.8 Glucose 89 Calcium 8.8 Total Bilirubin 0.50 AST 27 ALT 18 Alkaline Phosphatase 68 Total Protein 7.0 Albumin 3.5 Globulin 3.5 Albumin/Globulin Ratio 1.0 Crossmatch 02/06/22 13:35 WBC RBC Hgb Hct MCV MCH MCHC RDW Std Deviation RDW Coeff of Arleen Plt Count MPV Immature Gran % (Auto) Neut % (Auto) Lymph % (Auto) [place] % (Auto) Eos % (Auto) Baso % (Auto) Absolute Neuts (auto) Absolute Lymphs (auto) Nucleated RBC % Diff Path Review Hypochromasia Anisocytosis Nahed Cells Schistocytes PT INR Sodium Potassium Chloride Carbon Dioxide Anion Gap BUN Creatinine Estim Creat Clear Calc Est GFR (MDRD) Af Amer Est GFR (MDRD) Non-Af BUN/Creatinine Ratio Glucose Calcium Total Bilirubin AST ALT Alkaline Phosphatase Total Protein Albumin Globulin Albumin/Globulin Ratio Crossmatch See Detail Discharge Plan Triage Chief Complaint: Lower Extremity Injury ED Provider: Benjamín Torres Dx/Rx/DC Orders Clinical Impression: Peripheral vascular disease, Anemia, Acute GI bleeding Prescriptions: No Action trazodone 150 mg tablet 150 mg PO QHS RF: 0 pantoprazole [Protonix] 40 mg tablet,delayed release (DR/EC) 40 mg PO DAILY RF: 0 pregabalin [Lyrica] 100 mg capsule 100 mg PO TID RF: 0 aspirin [Adult Aspirin Regimen] 81 mg tablet,delayed release (DR/EC) 81 mg PO DAILY RF: 0 isosorbide mononitrate 120 mg tablet extended release 24 hr 120 mg PO DAILY Qty: 90 RF: 3 sotalol 120 mg tablet 120 mg PO BID Qty: 180 RF: 3 budesonide-formoterol 160-4.5 mcg/actuation HFA aerosol inhaler 2 puff INHALATION BID Qty: 10.2 RF: 5 pyridoxine (vitamin B6) 50 mg tablet 50 mg PO DAILY Qty: 30 RF: 2 duloxetine 60 mg capsule,delayed release(DR/EC) 60 mg PO QPM Qty: 30 RF: 1 cyanocobalamin (vitamin B-12) 1,000 mcg tablet 1,000 mcg PO DAILY Qty: 30 RF: 2 gabapentin 600 MG tablet 1,200 mg PO TIDCM RF: 0 albuterol sulfate 2.5 MG/3 ML solution for nebulization 1 dose IH Q4H PRN PRN (Reason: Sob &/Or Wheezing) RF: 0 nitroglycerin 0.4 MG tablet, sublingual 0.4 mg sublingual PRN PRN (Reason: chest pain) RF: 0 albuterol sulfate 1 PUFF inhaler 2 puff INHALATION Q6H PRN PRN (Reason: Sob &/Or Wheezing) RF: 0 tamsulosin 0.4 MG capsule 0.4 mg PO DAILY@1730 RF: 0 insulin glargine 100 UNITS/ML insulin pen 20 units SC BREAKFAST RF: 0 levetiracetam [Keppra] 500 mg tablet 500 mg PO BID Qty: 60 RF: 0 ropinirole 0.5 mg tablet 0.5 mg PO QHS RF: 0 loratadine 10 mg Tablet 10 mg PO DAILY RF: 0 oxycodone 5 mg tablet 5 mg PO Q6H PRN PRN (Reason: Pain) RF: 0 furosemide 40 mg tablet 40 mg PO DAILY Qty: 0 RF: 0 promethazine 25 mg tablet 25 mg PO Q6H PRN (Reason: nausea) Qty: 20 RF: 0 duloxetine 30 mg capsule,delayed release(DR/EC) 30 mg PO QAM Qty: 30 RF: 2 atorvastatin 80 mg tablet 80 mg PO QHS Qty: 90 RF: 3 clopidogrel 75 mg tablet 75 mg PO DAILY Qty: 90 RF: 3 ezetimibe 10 mg tablet 10 mg PO DAILY Qty: 90 RF: 3 lisinopril 10 mg tablet 10 mg PO DAILY Qty: 90 RF: 3 metoprolol succinate 100 mg tablet extended release 24 hr 100 mg PO DAILY Qty: 90 RF: 3 Primary Care Provider: Blaze Louis Referrals: Blaze Louis MD [Primary Care Provider] - Disposition Disposition: Acute Care Hospital [facility]
[2022-02-06] MEDS: HYDROmorphone 1 MG/ML Syringe IV (13:04)
[2022-02-06 13:07] LABS: Absolute Lymphocyte Count 0.88 X10^3/uL (0.83-4.51); Absolute Neutrophil Count 10.1 X10^3/uL (2.0-7.7); Basophil# 0.09 X10^3/uL; Basophil% 0.7 % (0-1); Eosinophil# 0.02 X10^3/uL; Eosinophils% 0.2 % (0-5); Hematocrit 21.6 % (40-54); Lymphocyte # 0.88 X10^3/ul (0.83-4.51); Lymphocyte % 6.8 % (19-41); Mean Corp Hgb Conc 25.9 g/dL (32-36); Mean Corpuscular Volume 88.9 fL (80-94); Mean Platelet Vol. 10.2 fl (6.2-12.0); Monocyte# 1.64 X10^3/uL; Monocyte% 12.8 % (0-10); NRBC Flagged by Analyzer 2.3 % (0-5); Neutrophil # 10.09 X10^3/uL (2.7-7.7); Neutrophil % 78.5 % (47-70); POSITIVE COUNT YES; POSITIVE DIFFERENTIAL YES; Platelet Count 360 K/mm3 (150-450); RBC Distribution Width CV 19.3 % (11.6-14.6); RBC Distribution Width SD 62.4 fl (35.1-43.9); Red Blood Count 2.43 M/mm3 (4.6-6.2); White Blood Count 12.9 K/mm3 (4.4-11.0)
[2022-02-06 13:10] LABS: Differential Indicated SCAN CRITERIA MET; Hemoglobin 5.6 g/dL (13.0-16.5)
[2022-02-06 13:17] LABS: International Normalized Ratio 1.4; Prothrombin Time (Protime)PT. 16.6 SECONDS (11.7-14.9)
[2022-02-06 13:21] LABS: AST(SGOT) 27 U/L (15-37); Alanine Aminotransfer ALT/SGPT 18 U/L (16-61); Albumin, Serum 3.5 g/dL (3.2-5.0); Alkaline Phosphatase 68 U/L (45-117); Anion Gap 16 (5-15); BUN 29 mg/dL (7-18); BUN/Creat Ratio 18.8 RATIO (10-20); Calcium,Total 8.8 mg/dL (8.5-10.1); Chloride 103 mmol/L (98-107); Creatinine, Serum 1.54 mg/dL (0.70-1.30); EST Glomerular Filtration Rate 50 mL/min (>60); Est Glom Filt Rate - Afr Amer 60 mL/min (>60); Globulin 3.5 g/dL (2.2-4.2); Glucose 89 mg/dL (74-106); Potassium 5.2 mmol/L (3.5-5.1); Sodium Level 133 mmol/L (136-145)
[2022-02-06 13:36] LABS: Anisocytosis 1+; Burr Cells RARE; Hypochromasia 2+
[2022-02-06 13:37] LABS: Schistocytes 1+
--- NOTE | 2022-02-06 15:08 | HP.PCM.HOS_ITS ---
HPI - General General Date of Admission: 02/06/22 HPI Narrative SAIRA STEVENS, is a 56 M with a PMH as outlined who presents via the ED with a complaint of RLE pain. He does have chronic RLE pain but thinks it has gradually worsened. 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 He admitted to recently having dark stools and says it has been going on for about a month now. He admits to easy fatiguability but denies any chest pain, palpitations, dizziness, nausea or vomiting or lightheadedness. Review of systems is otherwise negative. He sees dr Mcdonald, but subseqeuntly missed some appointments;he says he missed one appointment, but the ED doctor called Dr Mcdonald his vascular surgeon who says patient missed about 3 apointments. He denies any fever, chills, nausea or vomiting or diarrhea. Review of systems is otherwise negative. He says he recently had some work done on his carotid artery. Vitals were BP of 101/33,. RI of 68, RR of 16 and he was saturating at 99% on room air. CBC showed Hb of 5.6, wbc of 12.9, platelets of 360; INR was 1.4. Chemistry showed sodium of 133, potassium of 5.2, bicarb of 14 and anion gap of 16 as well as Cr of 1.54, with known baseline of ~ 0.7. CTA of the abdomen and pelvis showed occlusion of the right superficial femoral artery in its midportion with reconstitution of popliteal artery as well as severe stenosis of right common femoral artery with occlusion of distal portion, and right adrenal mass. Stool for occult blood was positive. He has been on aspirin and plavix. Will admit to ICU to be managed for acute anemia due to GI bleed as well as chronic RLE limb ischemia. [facility] Medical History (Updated 02/06/22 @ 15:59 by Rosa Gorman) (HFpEF) heart failure with preserved ejection fraction Acute hypotension Acute repetitive seizure Atherosclerosis of coronary artery bypass graft without angina pectoris Atherosclerosis of coronary artery of [place] heart without angina pectoris Atrial fibrillation Chest wall contusion Chronic anticoagulation Chronic obstructive pulmonary disease CPAP (continuous positive airway pressure) dependence Diabetes mellitus Essential hypertension Fall from slip, trip, or stumble Fracture of rib Hyperlipidemia Hypertension Leg swelling Lower extremity edema Major depression Metatarsal bone fracture Myocardial infarct Nicotine abuse KENNETH and COPD overlap syndrome Paroxysmal atrial fibrillation Rectal bleeding Secondary pulmonary arterial hypertension Sleep apnea Smoking greater than 40 pack years Stroke/cerebrovascular accident Suicidal ideation Syncope Typical atrial flutter Home Medications gabapentin 1,200 mg PO TIDCM 12/07/15 [History Last Taken 02/06/22] albuterol sulfate 1 dose IH Q4H PRN PRN 11/09/19 [History Last Taken 02/06/22] albuterol sulfate 2 puff INHALATION Q6H PRN PRN 11/09/19 [History Last Taken 02/05/22] nitroglycerin 0.4 mg SUBLINGUAL PRN PRN 11/09/19 [History Last Taken 02/06/22] pantoprazole 40 mg tablet,delayed release 40 mg PO DAILY 11/11/19 [History Last Taken 02/06/22] aspirin 81 mg tablet,delayed release 81 mg PO DAILY 05/24/20 [History Last Taken 02/06/22] insulin glargine 10 units SC BREAKFAST 12/18/20 [History Last Taken 02/06/22] tamsulosin 0.4 mg PO DAILY@1730 12/18/20 [History Last Taken 02/05/22] isosorbide mononitrate 120 mg tablet,extended release 24 hr 120 mg PO DAILY #90 tab 01/29/21 [Rx Last Taken 02/06/22] sotalol 120 mg tablet 120 mg PO BID #180 tab 01/29/21 [Rx Last Taken 02/06/22] levetiracetam [Keppra] 500 mg PO BID #60 tab 04/19/21 [Rx Last Taken 02/06/22] budesonide-formoterol HFA 160 mcg-4.5 mcg/actuation aerosol inhaler 2 puff INHALATION BID #10.2 g 05/30/21 [Rx Last Taken 02/06/22] duloxetine 60 mg capsule,delayed release 60 mg PO QPM #30 cap 09/30/21 [Rx Last Taken 02/05/22] furosemide 40 mg PO DAILY #0 tab 10/18/21 [Rx Last Taken 02/06/22] promethazine 25 mg PO Q6H PRN #20 tab 12/17/21 [Rx Last Taken 02/06/22] duloxetine 30 mg capsule,delayed release 30 mg PO QAM #30 cap 12/24/21 [Rx Last Taken 02/06/22] atorvastatin 80 mg tablet 80 mg PO QHS #90 tab 01/17/22 [Rx Last Taken 02/05/22] clopidogrel 75 mg tablet 75 mg PO DAILY #90 tab 01/17/22 [Rx Last Taken 02/06/22] ezetimibe 10 mg tablet 10 mg PO DAILY #90 tab 01/17/22 [Rx Last Taken 02/06/22] lisinopril 10 mg tablet 10 mg PO DAILY #90 tab 01/17/22 [Rx Last Taken 02/06/22] metoprolol succinate 100 mg tablet,extended release 24 hr 100 mg PO DAILY #90 tab 01/17/22 [Rx Last Taken 02/06/22] aripiprazole 2 mg PO QHS 02/06/22 [History Last Taken 02/05/22] metformin 1,000 mg PO BID 02/06/22 [History Last Taken 02/06/22] Allergy/AdvReac Type Severity Reaction Status Date / Time seasonal Allergy SOB Uncoded 02/06/22 12:13 Family History Father CAD (coronary artery disease) COPD (chronic obstructive pulmonary disease) CHF (congestive heart failure) CVA (cerebral vascular accident) Mother COPD (chronic obstructive pulmonary disease) Other Neuropathy Surgical History H/O coronary artery bypass surgery (10/2005) History of coronary artery stent placement (01/05/14) History of left heart catheterization (12/20/20) History of loop recorder (2015) History of open reduction and internal fixation (ORIF) procedure Social History household members: significant other and other housing: house number of children: 2 Smoking Status: Former smoker Electronic Cigarette Use: not used second hand exposure: No alcohol intake: current alcohol intake frequency: a few times a month Alcohol type: beer, wine and hard liquor substance use type: marijuana caffeine: Yes Type: coffee what type of physical activity do you participate in: walking frequency: daily duration: < 15 minutes/day seatbelt use: always do you feel safe at home: Yes ROS Constitutional Constitutional: Reports fatigue, malaise and weakness; Denies anorexia, change in weight, chills or night sweats Eyes Eyes: Denies change in vision ENT HEENT: Denies abnormal hearing or epistaxis Cardiovascular Cardiovascular: Denies chest pain, dyspnea on exertion, edema, orthopnea, palpitations, paroxysmal nocturnal dyspnea or rapid heart rate Respiratory/Chest Respiratory/Chest: Denies cough, dyspnea, excessive phlegm production, hemoptysis, productive cough, shortness of breath at rest or shortness of breath with exertion Gastrointestinal Gastrointestinal: Reports melena; Denies abdominal pain, coffee ground emesis, constipation, diarrhea, dyspepsia, hematemesis, hematochezia, nausea or vomiting Genitourinary Genitourinary: Denies burning urination Musculoskeletal Musculoskeletal: Denies arthralgias or back pain Neurologic Neurologic: Denies confusion, dizziness, focal weakness, headache(s), numbness, seizure-like activity, seizures, syncope, tingling or tremor(s) Psychiatric Psychiatric: Denies anxiety Endocrine Endocrinology: Denies change in body appearance Hematologic/Lymphatic Hematologic/Lymphatic: Reports anemia Vital Signs Vital Signs Vital Signs: 02/06/22 12:08 02/06/22 15:07 Temperature 96.9 F L Temperature Source Temporal Pulse Rate 65 68 Respiratory Rate 14 16 Blood Pressure 91/46 L 101/33 L Blood Pressure Mean 61 55 Pulse Ox 100 99 Oxygen Delivery Method Room Air Room Air Weight Weight: 178 lb 5.663 oz Body Mass Index (BMI) 25.5 Physical Exam Const alert and oriented x3 General Appearance: cooperative HEENT normocephalic, head/scalp atraumatic, hearing grossly normal bilaterally and moist oral mucous membranes Eyes PERRL, EOMs intact bilaterally and conjunctivae normal Neck no lymphadenopathy, supple and no JVD Resp Resp Narrative: mildly diminished breath sounds bibasally, no wheezes or crackles. On 2L of oxygen by nasal canula Cardio regular rate, regular rhythm, S1 normal heart sound, S2 normal heart sound and no murmurs GI normal to inspection, nondistended, normoactive bowel sounds, soft to palpation, non-tender and non-distended Extremity normal to inspection, full ROM and no clubbing, cyanosis or edema Peripheral Pulses: Yes pulses 2+ throughout Skin no rashes or lesions noted Neuro oriented x3, CN's II-XII intact bilaterally and moves all extremities Sensorium / Orientation: awake and alert Psych affect normal Results Lab / Micro Data Result Diagrams: 02/06/22 17:15 02/06/22 12:55 Labs: Laboratory Results - last 24 hr 02/06/22 12:55: WBC 12.9 H, RBC 2.43 L, Hgb 5.6 L*, Hct 21.6 L, MCV 88.9, MCH 23.0 L, MCHC 25.9 L, RDW Std Deviation 62.4 H, RDW Coeff of Arleen 19.3 H, Plt Count 360, MPV 10.2, Immature Gran % (Auto) 1.000 H, Neut % (Auto) 78.5 H, Lymph % (Auto) 6.8 L, [place] % (Auto) 12.8 H, Eos % (Auto) 0.2, Baso % (Auto) 0.7, Absolute Neuts (auto) 10.1 H, Absolute Lymphs (auto) 0.88, Nucleated RBC % 2.3, Diff Path Review May foll, Hypochromasia 2+, Anisocytosis 1+, Nahed Cells RARE, Schistocytes 1+ 02/06/22 12:55: PT 16.6 H, INR 1.4 02/06/22 12:55: Sodium 133 L, Potassium 5.2 H, Chloride 103, Carbon Dioxide 14.0 L, Anion Gap 16 H, BUN 29 H, Creatinine 1.54 H, Estim Creat Clear Calc 55.30, Est GFR (MDRD) Af Amer 60, Est GFR (MDRD) Non-Af 50 L, BUN/Creatinine Ratio 18.8, Glucose 89, Calcium 8.8, Total Bilirubin 0.50, AST 27, ALT 18, Alkaline Phosphatase 68, Total Protein 7.0, Albumin 3.5, Globulin 3.5, Albumin/Globulin Ratio 1.0 02/06/22 13:35: Crossmatch See Detail Micro: Microbiology 02/06/22 13:35 Stool Stool Occult Blood (JEANETTE) - Final Occult Blood Positive Assessment & Plan Assessment/Plan (1) Acute GI bleeding: (2) Anemia: (3) Peripheral vascular disease: PLAN: #Acute on chronic anemia * Hb is 5.6. baseline Hb from EMR is 10-11 * admits to having dark stools over the last month. He is on aspirin and plavix * admit to ICU due to patient's severe anemia * hold aspirin and plavix. Start on pantoprazole drip * consult GI * transfuse with 2 units of PRBCs * hydrate with IVF * consult critical care since he is in the ICU * #Chronic limb ischemia * patient complaining of pain in his RLE, which appears to be slightly worse than usual. * Patient has palpable dorsalis pedis and posterior tibialis arteries * CTA of the abdomen and pelvis showed occlusion of the right superficial fe moral artery in its midpoint with reconstitution of the popliteal artery and severe stenosis of the right common femoral artery and occlusion of its distal portion. This is similar to previous imaging * Consult vascular surgery. I do not think patient has critical limb ischemia assess foot is not cold to touch and pain appears to be only slightly worse than usual and he also has palpable dorsalis pedis and posterior tibialis arteries. ED doctor spoke to Dr. Mcdonald who will see patient tomorrow. * #Hyperkalemia: Potassium is 5.2. Will hold lisinopril and give Kayexalate. #NIGEL: * Creatinine is 1.54 with a baseline of around 1. * Hydrate with IV fluids and monitor. * This is likely prerenal due to decreased intake. #Anion gap metabolic acidosis: * Bicarb is 14 with anion gap of 16. * I suspect that this may be due to lactic acidosis on account of acute on chronic anemia. Nigel is also likely contributing * Will check lactic acid. Hydrate with IV fluids and trend. * If it worsens, consult nephrology * #CAD s/p CABG: Hold aspirin and Plavix due to acute on chronic anemia. On stat in and Imdur as well as ezetimibe #History of peripheral artery disease * CTA abdomen and pelvis findings as above * vascular surgery consulted. aspirin and plavix on hold * on imdur, statin and ezetimibe * #Depression: On duloxetine #Type 2 diabetes mellitus: * Hold Lantus as he is currently on clear liquids and will likely need scope. * Insulin sliding scale. Checks ACH S. Hold Metformin as well #Seizure disorder: On Keppra #Hypertension: On lisinopril GI prophylaxis: on PPI drip as above DVT prophylaxis: SCDs. no anticoagulation o.a of acute on chronic anemia and GI bleed\ Code status: full code * Patient counseled extensively about different types of CODE STATUS including full code, DNR CCA and DNR CCA. Patient elects to be full code. Total [id number] time 17 minutes. Charges/Coding Visit Charges Inpatient E&M: 94443 Init Hosp L3 Multi Select Codes Visit Charges Visit Charges: 99229 Init Hosp L3 Hospitalists' Procedures Procedures: 93382 Advncd Care Plan 30 Min
--- NOTE | 2022-02-06 15:20 | NURSING ---
ICU [facility]
--- NOTE | 2022-02-06 15:47 | NURSING ---
ICU 2
--- NOTE | 2022-02-06 17:14 | CASEMGMT ---
RN CM Assessment Introduced role of RN CM to patient and sig. other Nely Monson at bedside. Patient is alert, oriented and able to participate in RN CM Assessment. Care providers, pharmacy, and demographics verified. Admit Dx: Acute Anemia, RLE limb ischemia Re-Admit: No Barriers/Issues: Missed one appt w/Dr Mcdonald d/t was detained. Has rescheduled for 02/12/22. Has not been ambulating for awhile now d/t LE vascular history and pain. Has numerous steps in home and into home that he has to go up/down and his stair lift is broke. States someone from from his incarcerated. [facility] has been out twice but denied him. Needs a new Glucometer. PCP: Blaze Louis Specialists: Vasc- Harry, Cardio- Jeniffer, Pulm-Carlos, [facility] Preferred Pharmacy: [facility] Insurance: [facility] Rx Benefit: Yes LNOK: Mother Hafsa Weston and Sig other Nely Monson LW/HPOA: None. AD information with psychiatric social worker supervisor rack card provided. Informed can complete as an inpatient or outpatient. Living Arrangements: Lives with Sig. Other in a SSH, 30 steps inside to basement, and multiple to enter home w/rails. ADL?s: Ind ADLs. has been scooting on butt to get up/down steps. Has been chair bound recently. Transportation: Patient does not drive, Sig. other transports and will upon DC. DME: Neb, Rollator that is his moms and can use, 2ww, [place] WC, bathroom-handicap accessible, stair lift-currently broken. Needs new Glucometer- lost his. Home O2- Called [facility] and he is active with them at 2Lpm continuous. Patient states has a CPAP and bleeds O2. States O2 at 4Lpm continuous. HHC: None SNF: None Goal: Home and NN DC PLAN: Home and possible switch in anticoagulant- Dr Mcdonald to consult in hospital. Was on ASA and Plavix. Is a GIB for awhile now- Will have GI consult and receive blood transfusion. Yosef Garcia, DAVIDCM
[2022-02-06] MEDS: 0.9% Normal Saline 1,000 ML 125 ML IV (17:28)
[2022-02-06] MEDS: Morphine 2 MG/ML Syringe IV ×2 (17:29→21:21)
[2022-02-06 17:46] LABS: Absolute Lymphocyte Count 1.07 X10^3/uL (0.83-4.51); Absolute Neutrophil Count 6.7 X10^3/uL (2.0-7.7); Basophil# 0.07 X10^3/uL; Basophil% 0.8 % (0-1); Eosinophil# 0.04 X10^3/uL; Eosinophils% 0.5 % (0-5); Hematocrit 19.9 % (40-54); Lymphocyte # 1.07 X10^3/ul (0.83-4.51); Lymphocyte % 12.3 % (19-41); Mean Corp Hgb Conc 27.1 g/dL (32-36); Mean Corpuscular Hgb 23.3 pg (27.0-32.0); Mean Corpuscular Volume 85.8 fL (80-94); Mean Platelet Vol. 10.2 fl (6.2-12.0); Monocyte# 0.82 X10^3/uL; Monocyte% 9.4 % (0-10); NRBC Flagged by Analyzer 1.8 % (0-5); Neutrophil # 6.65 X10^3/uL (2.7-7.7); Neutrophil % 76.5 % (47-70); POSITIVE COUNT YES; Platelet Count 270 K/mm3 (150-450); RBC Distribution Width CV 18.8 % (11.6-14.6); Red Blood Count 2.32 M/mm3 (4.6-6.2); White Blood Count 8.7 K/mm3 (4.4-11.0)
[2022-02-06 17:52] LABS: Differential Indicated SCAN CRITERIA MET; Hemoglobin 5.4 g/dL (13.0-16.5)
[2022-02-06] MEDS: Budesonide Respules 0.5 MG/2 ML AMPUL.NEB. INHALATION (18:52)
[2022-02-06] MEDS: Albuterol 2.5 MG/3 ML VIAL.NEB. INHALATION (18:52)
--- NOTE | 2022-02-06 18:55 | CON.PCM.GI_ITS ---
HPI Consult Data Date of Consult: 02/06/22 HPI Narrative HPI Narrative: SAIRA STEVENS, is a 56 M who presents with right leg pain. He has a history of atrial fibrillation on anticoagulation, CHF, COPD, nicotine addiction with severe CAD status post 6 myocardial infarction. He also has a history of PAD with severe right femoral occlusion., this is relatively chronic however he feels the pain is somewhat worse today. He has had recent imaging that shows severe right femoral occlusion. CT angio displayed occlusion of the right superficial femoral artery in its midportion with reconstitution of the popliteal artery. It also displayed severe stenosis of the right common femoral artery with occlusion of its distal portion and a right adrenal mass. I was consulted to see him due to severely low hemoglobin of 5.6 and stools were fecal occult positive. On repeat his hemoglobin was 5.4. He is receiving 3 units of packed red blood cells at this time. [facility] Medical History (Updated 02/06/22 @ 15:59 by Rosa Gorman) (HFpEF) heart failure with preserved ejection fraction Acute hypotension Acute repetitive seizure Atherosclerosis of coronary artery bypass graft without angina pectoris Atherosclerosis of coronary artery of [place] heart without angina pectoris Atrial fibrillation Chest wall contusion Chronic anticoagulation Chronic obstructive pulmonary disease CPAP (continuous positive airway pressure) dependence Diabetes mellitus Essential hypertension Fall from slip, trip, or stumble Fracture of rib Hyperlipidemia Hypertension Leg swelling Lower extremity edema Major depression Metatarsal bone fracture Myocardial infarct Nicotine abuse KENNETH and COPD overlap syndrome Paroxysmal atrial fibrillation Rectal bleeding Secondary pulmonary arterial hypertension Sleep apnea Smoking greater than 40 pack years Stroke/cerebrovascular accident Suicidal ideation Syncope Typical atrial flutter Home Medications gabapentin 1,200 mg PO TIDCM 12/07/15 [History Last Taken 02/06/22] albuterol sulfate 1 dose IH Q4H PRN PRN 11/09/19 [History Last Taken 02/06/22] albuterol sulfate 2 puff INHALATION Q6H PRN PRN 11/09/19 [History Last Taken 02/05/22] nitroglycerin 0.4 mg SUBLINGUAL PRN PRN 11/09/19 [History Last Taken 02/06/22] pantoprazole 40 mg tablet,delayed release 40 mg PO DAILY 11/11/19 [History Last Taken 02/06/22] aspirin 81 mg tablet,delayed release 81 mg PO DAILY 05/24/20 [History Last Taken 02/06/22] insulin glargine 10 units SC BREAKFAST 12/18/20 [History Last Taken 02/06/22] tamsulosin 0.4 mg PO DAILY@1730 12/18/20 [History Last Taken 02/05/22] isosorbide mononitrate 120 mg tablet,extended release 24 hr 120 mg PO DAILY #90 tab 01/29/21 [Rx Last Taken 02/06/22] sotalol 120 mg tablet 120 mg PO BID #180 tab 01/29/21 [Rx Last Taken 02/06/22] levetiracetam [Keppra] 500 mg PO BID #60 tab 04/19/21 [Rx Last Taken 02/06/22] budesonide-formoterol HFA 160 mcg-4.5 mcg/actuation aerosol inhaler 2 puff INHALATION BID #10.2 g 05/30/21 [Rx Last Taken 02/06/22] duloxetine 60 mg capsule,delayed release 60 mg PO QPM #30 cap 09/30/21 [Rx Last Taken 02/05/22] furosemide 40 mg PO DAILY #0 tab 10/18/21 [Rx Last Taken 02/06/22] promethazine 25 mg PO Q6H PRN #20 tab 12/17/21 [Rx Last Taken 02/06/22] duloxetine 30 mg capsule,delayed release 30 mg PO QAM #30 cap 12/24/21 [Rx Last Taken 02/06/22] atorvastatin 80 mg tablet 80 mg PO QHS #90 tab 01/17/22 [Rx Last Taken 02/05/22] clopidogrel 75 mg tablet 75 mg PO DAILY #90 tab 01/17/22 [Rx Last Taken 02/06/22] ezetimibe 10 mg tablet 10 mg PO DAILY #90 tab 01/17/22 [Rx Last Taken 02/06/22] lisinopril 10 mg tablet 10 mg PO DAILY #90 tab 01/17/22 [Rx Last Taken 02/06/22] metoprolol succinate 100 mg tablet,extended release 24 hr 100 mg PO DAILY #90 tab 01/17/22 [Rx Last Taken 02/06/22] aripiprazole 2 mg PO QHS 02/06/22 [History Last Taken 02/05/22] metformin 1,000 mg PO BID 02/06/22 [History Last Taken 02/06/22] Allergy/AdvReac Type Severity Reaction Status Date / Time seasonal Allergy SOB Uncoded 02/06/22 12:13 Family History Father CAD (coronary artery disease) COPD (chronic obstructive pulmonary disease) CHF (congestive heart failure) CVA (cerebral vascular accident) Mother COPD (chronic obstructive pulmonary disease) Other Neuropathy Surgical History H/O coronary artery bypass surgery (10/2005) History of coronary artery stent placement (01/05/14) History of left heart catheterization (12/20/20) History of loop recorder (2015) History of open reduction and internal fixation (ORIF) procedure Social History household members: significant other and other housing: house number of children: 2 Smoking Status: Former smoker Electronic Cigarette Use: not used second hand exposure: No alcohol intake: current alcohol intake frequency: a few times a month Alcohol type: beer, wine and hard liquor substance use type: marijuana caffeine: Yes Type: coffee what type of physical activity do you participate in: walking frequency: daily duration: < 15 minutes/day seatbelt use: always do you feel safe at home: Yes ROS Gastrointestinal Gastrointestinal: Reports hematochezia and melena Physical Exam Const alert General Appearance: cooperative Orientation / Consciousness: oriented to person HEENT hearing grossly normal bilaterally Head and Scalp: normal to inspection Face and Sinus: face symmetric Nose: external nose normal Mouth: oral and palatal mucosa normal Eyes conjunctivae normal General Eye: normal appearance of both eyes Neck full ROM General: normal visual inspection Lymph Lymphatic: no lymphadenopathy noted Chest inspection of chest normal and palpation of chest normal Chest: symmetrical chest wall rise Resp normal respiratory effort Effort and Inspection: able to speak in complete sentences Cardio regular rate GI non-distended Percussion: normal to percussion Rectal Exam: deferred Neuro Speech: speech normal Gait (Neuro): normal gait Lab / Micro Data Result Diagrams: 02/06/22 17:15 02/06/22 12:55 Labs: Laboratory Results - last 24 hr 02/06/22 12:55: WBC 12.9 H, RBC 2.43 L, Hgb 5.6 L*, Hct 21.6 L, MCV 88.9, MCH 23.0 L, MCHC 25.9 L, RDW Std Deviation 62.4 H, RDW Coeff of Arleen 19.3 H, Plt Count 360, MPV 10.2, Immature Gran % (Auto) 1.000 H, Neut % (Auto) 78.5 H, Lymph % (Auto) 6.8 L, [place] % (Auto) 12.8 H, Eos % (Auto) 0.2, Baso % (Auto) 0.7, Absolute Neuts (auto) 10.1 H, Absolute Lymphs (auto) 0.88, Nucleated RBC % 2.3, Diff Path Review May foll, Hypochromasia 2+, Anisocytosis 1+, [place] Cells RARE, Schistocytes 1+ 02/06/22 12:55: PT 16.6 H, INR 1.4 02/06/22 12:55: Sodium 133 L, Potassium 5.2 H, Chloride 103, Carbon Dioxide 14.0 L, Anion Gap 16 H, BUN 29 H, Creatinine 1.54 H, Estim Creat Clear Calc 55.30, Est GFR (MDRD) Af Amer 60, Est GFR (MDRD) Non-Af 50 L, BUN/Creatinine Ratio 18.8, Glucose 89, Calcium 8.8, Total Bilirubin 0.50, AST 27, ALT 18, Alkaline Phosphatase 68, Total Protein 7.0, Albumin 3.5, Globulin 3.5, Albumin/Globulin Ratio 1.0 02/06/22 13:35: Blood Type O POSITIVE, Antibody Screen NEGATIVE, Crossmatch See Detail 02/06/22 17:15: WBC 8.7, RBC 2.32 L, Hgb 5.4 L*, Hct 19.9 L, MCV 85.8, MCH 23.3 L, MCHC 27.1 L, RDW Std Deviation 58.0 H, RDW Coeff of Arleen 18.8 H, Plt Count 270, MPV 10.2, Immature Gran % (Auto) 0.500, Neut % (Auto) 76.5 H, Lymph % (Auto) 12.3 L, [place] % (Auto) 9.4, Eos % (Auto) 0.5, Baso % (Auto) 0.8, Absolute Neuts (auto) 6.7, Absolute Lymphs (auto) 1.07, Nucleated RBC % 1.8 02/06/22 17:15: Lactic Acid 3.0 H* Micro: Microbiology 02/06/22 13:35 Stool Stool Occult Blood (JEANETTE) - Final Occult Blood Positive Radiology Impression Abdomen/Pelvis CTA 02/06/22 12:54 IMPRESSION: Occlusion of the right superficial femoral artery in its midportion with reconstitution of the popliteal artery. Severe stenosis of the right common femoral artery with occlusion of its distal portion. Right adrenal mass. Electronically Signed: Harry Voss MD at 15:07 EST , Assessment & Plan Assessment/Plan (1) Acute GI bleeding: PLAN: The differential diagnosis for GI bleeding him would be AVMs higher on a priority due to his history of severe CAD and PAD. However also on the differential diagnosis would be peptic ulcer disease due to his history of anticoagulation and poor healing due to nicotine addiction and peripheral vascular disease. He should undergo an upper lower endoscopy to evaluate his upper lower GI tract to look for signs of neoplasia and other vascular abnormalities that can contributed to acute on chronic blood loss anemia. He was explained alternatives, risk, benefits including outstanding bleeding, infection, sepsis, perforation, need for emergent surgery . Have an ASA of 3. Charges/Coding Visit Charges Inpatient E&M: 16061 Init Hosp L2
[2022-02-06] MEDS: Bisacodyl 5 MG Tablet 20 MG PO (21:27)
[2022-02-06] MEDS: 0.9% Saline Lock 10 ML Syringe IV (21:27)
[2022-02-06] MEDS: Electrolyte Solution/Peg's 4000 ML PO (21:28)
[2022-02-06] MEDS: traZODone 50 MG Tablet 150 MG PO (21:29)
[2022-02-06] MEDS: Sotalol Hydrochloride 80 MG Tablet 120 MG PO (21:30)
[2022-02-06] MEDS: DULoxetine Hcl 60 MG Capsule PO (21:30)
[2022-02-06] MEDS: Pramipexole Di-HCl 0.25 MG Tablet PO (21:31)
[2022-02-06] MEDS: Atorvastatin Calcium 80 MG Tablet PO (21:31)
[2022-02-06] MEDS: levETIRAcetam 500 MG Tablet PO (21:31)
[2022-02-06 21:40] LABS: Reflex Lactate? Y
[2022-02-06 22:01] LABS: Bedside Glucose 112 mg/dL (74-106)
[2022-02-06 22:39] LABS: Lactic Acid 1.1 mmol/L (0.4-1.9)
[2022-02-07] VITALS (38 sets, daily range): BP systolic 103–142; BP diastolic 44–80; PULSE 71–96; RESP 14–20; TEMP 35.9–36.7; O2SAT 90–100
[2022-02-07] MEDS: Morphine 2 MG/ML Syringe IV ×4 (00:38→19:34)
[2022-02-07] MEDS: 0.9% Normal Saline 1,000 ML 125 ML IV (00:42)
[2022-02-07 04:08] LABS: Absolute Lymphocyte Count 1.13 X10^3/uL (0.83-4.51); Absolute Neutrophil Count 9.9 X10^3/uL (2.0-7.7); Basophil# 0.08 X10^3/uL; Basophil% 0.6 % (0-1); Eosinophil# 0.24 X10^3/uL; Eosinophils% 1.9 % (0-5); Hematocrit 23.6 % (40-54); Hemoglobin 6.9 g/dL (13.0-16.5); Lymphocyte # 1.13 X10^3/ul (0.83-4.51); Lymphocyte % 9.1 % (19-41); Mean Corp Hgb Conc 29.2 g/dL (32-36); Mean Corpuscular Hgb 25.1 pg (27.0-32.0); Mean Corpuscular Volume 85.8 fL (80-94); Mean Platelet Vol. 9.9 fl (6.2-12.0); Monocyte# 0.98 X10^3/uL; Monocyte% 7.9 % (0-10); Neutrophil # 9.94 X10^3/uL (2.7-7.7); Neutrophil % 79.9 % (47-70); Platelet Count 238 K/mm3 (150-450); RBC Distribution Width SD 55.5 fl (35.1-43.9); Red Blood Count 2.75 M/mm3 (4.6-6.2); White Blood Count 12.4 K/mm3 (4.4-11.0)
[2022-02-07 04:29] LABS: Anion Gap 8 (5-15); BUN 22 mg/dL (7-18); BUN/Creat Ratio 20.8 RATIO (10-20); Calcium,Total 8.1 mg/dL (8.5-10.1); Chloride 109 mmol/L (98-107); Creatinine, Serum 1.06 mg/dL (0.70-1.30); EST Glomerular Filtration Rate 77 mL/min (>60); Est Glom Filt Rate - Afr Amer 93 mL/min (>60); Estimated Creatinine Clearance 80.35 ml/min; Glucose 93 mg/dL (74-106); Potassium 3.8 mmol/L (3.5-5.1); Sodium Level 139 mmol/L (136-145)
--- NOTE | 2022-02-07 06:25 | EX.PCM.CONCC ---
Assessment & Plan Assessment/Plan (1) Anemia: (2) Peripheral vascular disease: PLAN: RECOMMENDATIONS: 1. Transfuse additional packed red blood cells as ordered. 2. Patient to remain n.p.o. for now. Tentative plans for endoscopic evaluation by gastroenterology later today. 3. Continue PPI therapy. 4. Await vascular surgery evaluation. 5. Encourage incentive spirometer use while in bed. IMPRESSIONS: 1. Acute blood loss anemia Clinical concern for gastrointestinal source of blood loss. The patient does appear to have been on aspirin and Plavix on an outpatient basis. These medications are on hold. Stool for occult blood was positive. The patient has been transfused 2 units packed red blood cells. However, hemoglobin was noted to be 6.9 g/dL this morning. Therefore order was placed for additional packed red blood cells. There are tentative plans for endoscopic evaluation today by gastroenterology. For now, continue PPI therapy as ordered. The patient is hemodynamically stable. 2. Peripheral vascular disease The patient does appear to have significant lower extremity arterial disease, for which vascular surgery has been consulted. Continue supportive measures for now. 3. Acute kidney injury Likely prerenal in etiology/ischemic ATN in the setting of blood loss anemia. With supplementation of blood products and fluids, creatinine has improved. Continue to monitor urine output. No current indication for renal replacement therapy. 4. History of coronary artery disease status post CABG/atrial fibrillation/obstructive sleep apnea/hypertension/prior tobacco dependency Complicates care, management, recovery and prognosis. Continue home medications as indicated. This note was generated with [employer] dictation software. It may contain incorrect words, spelling, and punctuation that were not noted in checking the note before signing. HPI Consult Data Date of Consult: 02/07/22 HPI Narrative Reason for Consultation: Acute on chronic anemia HPI Narrative: The patient is a 56-year-old male, with a history as outlined below, who presented to the emergency department on February 06 with right lower extremity pain. Prior arterial Doppler studies in November 2021 demonstrated severe occlusive disease of the right leg and moderate occlusive disease of the left leg. Patient was apparently scheduled to follow-up with vascular surgery, but subsequently failed to show up for 3 separate appointments. The patient does have a known history of coronary artery disease status post CABG along with atrial fibrillation, hypertension, peripheral vascular disease, obstructive sleep apnea and prior tobacco dependency. On presentation to the emergency department, the patient was noted to be hypotensive with a blood pressure of 91/46 mmHg. He was maintaining appropriate oxygen saturations on room air, nevertheless. Initial laboratory evaluation revealed a white blood cell count of 13,000 with a hemoglobin of 5.6 g/dL. Previously, in September 2021, the patient was noted to have a hemoglobin of 11 g/dL. Chemistry profile was notable for a sodium of 133, potassium of 5.2, bicarbonate of 14 and creatinine of 1.54. Lactate was elevated at 3.0. CTA abdomen/pelvis demonstrated occlusion of the right superficial femoral artery with reconstitution of the popliteal artery. There was also severe stenosis of the right common femoral artery with occlusion of its distal portion. Incidental note was also made of a right adrenal mass. Orders for transfusion of 2 units packed red blood cells was initiated and the patient was admitted to the medical intensive care unit for further management. The patient was seen in consultation by GI last evening, for which it was recommended that the patient undergo both upper and lower endoscopy today. Hemoglobin this morning was only noted to be 6.9 g/dL. The patient does appear to be on both aspirin and Plavix on an outpatient basis. Prior surface echocardiogram from August 2021 demonstrated normal LV size with stage III diastolic dysfunction and an ejection fraction of 65%. Pulmonary artery systolic pressure was estimated to be 50 mmHg. [facility] Medical History (Updated 02/06/22 @ 15:59 by Rosa Gorman) (HFpEF) heart failure with preserved ejection fraction Acute hypotension Acute repetitive seizure Atherosclerosis of coronary artery bypass graft without angina pectoris Atherosclerosis of coronary artery of [place] heart without angina pectoris Atrial fibrillation Chest wall contusion Chronic anticoagulation Chronic obstructive pulmonary disease CPAP (continuous positive airway pressure) dependence Diabetes mellitus Essential hypertension Fall from slip, trip, or stumble Fracture of rib Hyperlipidemia Hypertension Leg swelling Lower extremity edema Major depression Metatarsal bone fracture Myocardial infarct Nicotine abuse KENNETH and COPD overlap syndrome Paroxysmal atrial fibrillation Rectal bleeding Secondary pulmonary arterial hypertension Sleep apnea Smoking greater than 40 pack years Stroke/cerebrovascular accident Suicidal ideation Syncope Typical atrial flutter Home Medications gabapentin 1,200 mg PO TIDCM 12/07/15 [History Last Taken 02/06/22] albuterol sulfate 1 dose IH Q4H PRN PRN 11/09/19 [History Last Taken 02/06/22] albuterol sulfate 2 puff INHALATION Q6H PRN PRN 12/11/19 [History Last Taken 02/05/22] nitroglycerin 0.4 mg SUBLINGUAL PRN PRN 11/09/19 [History Last Taken 02/06/22] pantoprazole 40 mg tablet,delayed release 40 mg PO DAILY 11/11/19 [History Last Taken 02/06/22] aspirin 81 mg tablet,delayed release 81 mg PO DAILY 05/24/20 [History Last Taken 02/06/22] insulin glargine 10 units SC BREAKFAST 12/18/20 [History Last Taken 02/06/22] tamsulosin 0.4 mg PO DAILY@1730 12/18/20 [History Last Taken 02/05/22] isosorbide mononitrate 120 mg tablet,extended release 24 hr 120 mg PO DAILY #90 tab 01/29/21 [Rx Last Taken 02/06/22] sotalol 120 mg tablet 120 mg PO BID #180 tab 01/29/21 [Rx Last Taken 02/06/22] levetiracetam [Keppra] 500 mg PO BID #60 tab 04/19/21 [Rx Last Taken 02/06/22] budesonide-formoterol HFA 160 mcg-4.5 mcg/actuation aerosol inhaler 2 puff INHALATION BID #10.2 g 05/30/21 [Rx Last Taken 02/06/22] duloxetine 60 mg capsule,delayed release 60 mg PO QPM #30 cap 09/30/21 [Rx Last Taken 02/05/22] furosemide 40 mg PO DAILY #0 tab 10/18/21 [Rx Last Taken 02/06/22] promethazine 25 mg PO Q6H PRN #20 tab 12/17/21 [Rx Last Taken 02/06/22] duloxetine 30 mg capsule,delayed release 30 mg PO QAM #30 cap 12/24/21 [Rx Last Taken 02/06/22] atorvastatin 80 mg tablet 80 mg PO QHS #90 tab 01/17/22 [Rx Last Taken 02/05/22] clopidogrel 75 mg tablet 75 mg PO DAILY #90 tab 01/17/22 [Rx Last Taken 02/06/22] ezetimibe 10 mg tablet 10 mg PO DAILY #90 tab 01/17/22 [Rx Last Taken 02/06/22] lisinopril 10 mg tablet 10 mg PO DAILY #90 tab 01/17/22 [Rx Last Taken 02/06/22] metoprolol succinate 100 mg tablet,extended release 24 hr 100 mg PO DAILY #90 tab 01/17/22 [Rx Last Taken 02/06/22] aripiprazole 2 mg PO QHS 02/06/22 [History Last Taken 02/05/22] metformin 1,000 mg PO BID 02/06/22 [History Last Taken 02/06/22] Allergy/AdvReac Type Severity Reaction Status Date / Time seasonal Allergy SOB Uncoded 02/06/22 12:13 Family History Father CAD (coronary artery disease) COPD (chronic obstructive pulmonary disease) CHF (congestive heart failure) CVA (cerebral vascular accident) Mother COPD (chronic obstructive pulmonary disease) Other Neuropathy Surgical History H/O coronary artery bypass surgery (10/2005) History of coronary artery stent placement (01/05/14) History of left heart catheterization (12/20/20) History of loop recorder (2015) History of open reduction and internal fixation (ORIF) procedure Social History household members: significant other and other housing: house number of children: 2 Smoking Status: Former smoker Electronic Cigarette Use: not used second hand exposure: No alcohol intake: current alcohol intake frequency: a few times a month Alcohol type: beer, wine and hard liquor substance use type: marijuana caffeine: Yes Type: coffee what type of physical activity do you participate in: walking frequency: daily duration: < 15 minutes/day seatbelt use: always do you feel safe at home: Yes ROS Constitutional Constitutional: Reports fatigue; Denies chills or fever(s) Eyes Eyes: Denies blurry vision or change in vision ENT HEENT: Denies dizziness, dysphagia, epistaxis or headache(s) Cardiovascular Cardiovascular: Denies chest pain or dizziness Respiratory/Chest Respiratory/Chest: Denies dyspnea or hemoptysis Gastrointestinal Gastrointestinal: Reports hematochezia and melena; Denies abdominal pain or diarrhea Genitourinary Genitourinary: Denies difficulty urinating Musculoskeletal Musculoskeletal: Denies arthralgias, back pain or joint pain Integumentary Integumentary: Denies lesions, rash or skin ulcer Neurologic Neurologic: Denies abnormal speech or confusion Psychiatric Psychiatric: Denies anxiety Endocrine Endocrinology: Reports fatigue Hematologic/Lymphatic Hematologic/Lymphatic: Denies easy bleeding or easy bruising Physical Exam Const alert and no apparent distress General Appearance: cooperative HEENT normocephalic, head/scalp atraumatic and moist oral mucous membranes Eyes PERRL, EOMs intact bilaterally and conjunctivae normal Neck supple General: trachea midline Chest inspection of chest normal Resp Auscultation: diminished lung sounds; Negative for rales, rhonchi or wheezes Cardio regular rate and regular rhythm GI normal to inspection, nondistended, normoactive bowel sounds Extremity no clubbing, cyanosis or edema Skin no rashes or lesions noted Neuro CN's II-XII intact bilaterally and no focal motor deficits Psych cooperative and affect normal Lab / Micro Data Result Diagrams: 02/07/22 03:50 02/07/22 03:50 Labs: Laboratory Results - last 24 hr 02/06/22 12:55: WBC 12.9 H, RBC 2.43 L, Hgb 5.6 L*, Hct 21.6 L, MCV 88.9, MCH 23.0 L, MCHC 25.9 L, RDW Std Deviation 62.4 H, RDW Coeff of Arleen 19.3 H, Plt Count 360, MPV 10.2, Immature Gran % (Auto) 1.000 H, Neut % (Auto) 78.5 H, Lymph % (Auto) 6.8 L, [place] % (Auto) 12.8 H, Eos % (Auto) 0.2, Baso % (Auto) 0.7, Absolute Neuts (auto) 10.1 H, Absolute Lymphs (auto) 0.88, Nucleated RBC % 2.3, Diff Path Review May foll, Hypochromasia 2+, Anisocytosis 1+, [place] Cells RARE, Schistocytes 1+ 02/06/22 12:55: PT 16.6 H, INR 1.4 02/06/22 12:55: Sodium 133 L, Potassium 5.2 H, Chloride 103, Carbon Dioxide 14.0 L, Anion Gap 16 H, BUN 29 H, Creatinine 1.54 H, Estim Creat Clear Calc 55.30, Est GFR (MDRD) Af Amer 60, Est GFR (MDRD) Non-Af 50 L, BUN/Creatinine Ratio 18.8, Glucose 89, Calcium 8.8, Total Bilirubin 0.50, AST 27, ALT 18, Alkaline Phosphatase 68, Total Protein 7.0, Albumin 3.5, Globulin 3.5, Albumin/Globulin Ratio 1.0 02/06/22 13:35: Blood Type O POSITIVE, Antibody Screen NEGATIVE, Crossmatch See Detail 02/06/22 17:15: WBC 8.7, RBC 2.32 L, Hgb 5.4 L*, Hct 19.9 L, MCV 85.8, MCH 23.3 L, MCHC 27.1 L, RDW Std Deviation 58.0 H, RDW Coeff of Arleen 18.8 H, Plt Count 270, MPV 10.2, Immature Gran % (Auto) 0.500, Neut % (Auto) 76.5 H, Lymph % (Auto) 12.3 L, [place] % (Auto) 9.4, Eos % (Auto) 0.5, Baso % (Auto) 0.8, Absolute Neuts (auto) 6.7, Absolute Lymphs (auto) 1.07, Nucleated RBC % 1.8 02/06/22 17:15: Lactic Acid 3.0 H* 02/06/22 21:36: POC Glucose 112 H 02/06/22 22:00: Lactic Acid 1.1 02/07/22 03:50: WBC 12.4 H, RBC 2.75 L, Hgb 6.9 L, Hct 23.6 L, MCV 85.8, MCH 25.1 L, MCHC 29.2 L D, RDW Std Deviation 55.5 H, RDW Coeff of Arleen 18.0 H, Plt Count 238, MPV 9.9, Immature Gran % (Auto) 0.600, Neut % (Auto) 79.9 H, Lymph % (Auto) 9.1 L, [place] % (Auto) 7.9, Eos % (Auto) 1.9, Baso % (Auto) 0.6, Absolute Neuts (auto) 9.9 H, Absolute Lymphs (auto) 1.13, Nucleated RBC % 1.0 02/07/22 03:50: Sodium 139, Potassium 3.8, Chloride 109 H, Carbon Dioxide 22.0, Anion Gap 8, BUN 22 H, Creatinine 1.06, Estim Creat Clear Calc 80.35, Est GFR (MDRD) Af Amer 93, Est GFR (MDRD) Non-Af 77, BUN/Creatinine Ratio 20.8 H, Glucose 93, Calcium 8.1 L Micro: Microbiology 02/06/22 13:35 Stool Stool Occult Blood (JEANETTE) - Final Occult Blood Positive Radiology Impression Abdomen/Pelvis CTA 02/06/22 12:54 IMPRESSION: Occlusion of the right superficial femoral artery in its midportion with reconstitution of the popliteal artery. Severe stenosis of the right common femoral artery with occlusion of its distal portion. Right adrenal mass. Electronically Signed: Harry Voss MD at 15:07 EST , Charges/Coding Visit Charges Inpatient E&M: 59032 Init Hosp L3
[2022-02-07 06:31] LABS: Bedside Glucose 94 mg/dL (74-106)
[2022-02-07] MEDS: Albuterol 2.5 MG/3 ML VIAL.NEB. INHALATION ×3 (06:50→19:09)
[2022-02-07] MEDS: Budesonide Respules 0.5 MG/2 ML AMPUL.NEB. INHALATION ×2 (06:50→19:09)
[2022-02-07] MEDS: DULoxetine Hcl 30 MG Capsule PO (08:42)
[2022-02-07] MEDS: Gabapentin 600 MG Tablet 1200 MG PO ×3 (08:42→17:41)
[2022-02-07] MEDS: Sotalol Hydrochloride 80 MG Tablet 120 MG PO ×2 (08:42→21:49)
[2022-02-07] MEDS: Cyanocobalamin 500 MCG Tablet 1000 MCG PO (08:44)
[2022-02-07] MEDS: Pyridoxine HCl 50 MG Tablet PO (08:44)
[2022-02-07] MEDS: Ezetimibe 10 MG Tablet PO (08:44)
[2022-02-07] MEDS: Loratadine 10 MG Tablet PO (08:44)
[2022-02-07] MEDS: levETIRAcetam 500 MG Tablet PO ×2 (08:44→21:51)
[2022-02-07] MEDS: CHLORHEXIDINE GLUC 2% CLOTH 1 EACH TOWELETTE TOPICAL (08:44)
[2022-02-07] MEDS: 0.9% Normal Saline 1,000 ML 15 ML IV (09:29)
[2022-02-07 11:00] LABS: Bedside Glucose 93 mg/dL (74-106)
--- NOTE | 2022-02-07 11:00 | CASEMGMT ---
Social Work SW met with pt and significant other Nely and introduced self and role of SW. SW discussing housing concerns with pt, specifically the broken stair lift into home. Pt states that he and SO are in the process of moving to a first floor apartment with no steps to enter. SO confirms when pt is discharged he will go to the new apartment. SW assessed the following needs: Food: pt states they have plenty of food. But then inquires about Meals on Wheels. Written information on [employer] provided. Housing: pt and SO state they are working with [employer] and [employer] to obtain housing vouchers. The are aware of and have been in contact with [employer] as well. : SO concerned as they do not have household goods needed. SW offered written information of [employer] who can assist with this. SO states she visited [employer] yesterday and plans to return at 1 pm to discuss further and obtain assistance. Transportation: pt SO is able to drive. Concerns with car repairs and SW provided information on [employer]: Pt does receive Social Security. SO is employed. Pt is aware of [employer] and states he does not qualify for food stamps or other assistance Medical: Pt does have a casework manager through [facility] and states he has talked with her about needs in the past. Resources provided for [employer], [employer], [employer] (to fix stair lift), Meals on Wheels, [employer] and [employer]. Pt and significant other are already familiar with and connected with many community programs. D/C plan: Pt plans to return home with significant other to their new first floor apartment at time of discharge. SO can assist as needed and when she is at work her adult daughter is able to stay with pt. RAMSEY Stevens
[2022-02-07 13:29] LABS: Pathologist Review Reviewed
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
--- NOTE | 2022-02-07 14:17 | CHAPLAIN ---
Type of Pastoral Visit _x__ Initial Visit ___ Follow-up Visit ___ On-call Visit ___ General Patient Visit ___ Spiritual Assessment ___ Family Conference ___ Bereavement ___ Rapid Response ___ Code Blue ___ Other (describe below) Pastoral Care Referral From _x__ Patient ___ Family ___ Nurse ___ Physician ___ Wringer Operator ___ Count Room Clerk ___ Other (describe below) Sacrament/Intervention ___ Active listening ___ Anointing ___ Caodaism ___ Bereavement ___ Communion ___ Barbara exploration ___ ___ Life review _x__ Prayer ___ Reconciliation ___ Sacrament of Sick _x__ Supportive presence ___ Wedding ___ Other (describe below) Pastoral Comments have met this patient in previous meetings; pt opens eyes and answers questions but does not engage in conversation; pt assured of good care and presence of this utilization specialist for support; pt welcomes prayer; pt keeps eyes closed so visit ended
[2022-02-07] MEDS: 0.9% Saline Lock 10 ML Syringe IV (14:26)
--- NOTE | 2022-02-07 15:05 | NURSING ---
transferred by this RN in bed on monitor to Endo at this time. Report given to DAVID Hudson.
--- NOTE | 2022-02-07 16:00 | EGD_PTH ---
PATIENT: SAIAR STEVENS LOC: PCU U#:[id number] AGE/SX: 56/M ROOM: [facility] RE02/06/[address]: Dr. Kristi Lancaster DO : 1965 BED: 1 DIS: 02/09/2022 SPEC #: [id number] RECD: 02/07/22 19:24 STATUS: SULMA RERodo #: [id number] REBEKA: 02/07/22 16:[address]: J Luis Newton DEPT: SURGICAL PATHOLOGY RECD BY: Augusta Sanchez ENTERED: 02/10/22 08:30 SP TYPE: EGD BIOPSY OT DR: MD Dr. Stephan Saba MD Dr. Derek Brown, MD Dr. Kristi Lamar Dr., MD Nely Lai Dr., CHIEF DEPUTY-C Tissues: A - Duodenum, NOS B - Ileum, NOS C - COLON BIOPSY Procedures: Surgery Specimen Level IV Comments: @ Ordering doctor for SUIV edited from to @ by RGOOD at 02/10/22 1437 @ Submitting doctor edited from to @ by RGOOD at 02/10/22 1437 HEADER OPERATION: Colonoscopy, EGD ([facility]) PRE-OP DIAGNOSIS: Acute GI bleeding TISSUE SUBMITTED: A ? Duodenal bulb biopsy, B ? Terminal ileum biopsy, C ? Random colon biopsy MICROSCOPIC DIAGNOSIS A. Duodenal bulb, biopsy: Focal acute duodenitis. B. Terminal ileum, biopsy: Mild nonspecific chronic inflammation. C. Colon, random biopsy: Focal acute colitis. Mild melanosis coli. See comment. AM:latonia 02/11/2022 COMMENT C. There is no significant glandular distortion, no fissuring ulcers or granulomas are identified. Clinical correlation is suggested. MICROSCOPIC DESCRIPTION Slides are reviewed. GROSS DESCRIPTION A - Received in fixative is one container labeled with the patient's name and designated duodenal bulb biopsy. The specimen consists of multiple irregular fragments of light smyth soft tissue that in aggregate measure 0.5 x 0.2 x 0.1 cm. The specimen is totally submitted in one cassette. B - Received in fixative is one container labeled with the patient's name and designated terminal ileum biopsy. The specimen consists of multiple irregular fragments of light smyth soft tissue that in aggregate measure 1 x 0.3 x 0.1 cm. The specimen is totally submitted in one cassette. C - Received in fixative is one container labeled with the patient's name and designated random colon biopsy. The specimen consists of multiple irregular fragments of light smyth soft tissue that in aggregate measure 1.5 x 0.5 x 0.1 cm. The specimen is totally submitted in one cassette. / SJ:rg 02/10/2022 TC:2 CPT: 19706 x3
--- NOTE | 2022-02-07 16:55 | OP.EGD_ITS ---
Patient Name: Neto Weston Procedure Date: 02/07/2022 4:01 PM Date of : 1965 Age: 56 Procedure: Upper GI endoscopy Indications: Melena Providers: J Luis Newton DO Medicines: See the Anesthesia note for documentation of the administered medications Patient Profile: This is a 56 year old male. Refer to note in patient chart for documentation of history and physical. Patient has symptoms of acute epigastric abdominal pain. Complications: No immediate complications. Procedure: Pre-Anesthesia Assessment: - Prior to the procedure, a History and Physical was performed, and patient medications and allergies were reviewed. The risks and benefits of the procedure and the sedation options and risks were discussed with the patient. All questions were answered and informed consent was obtained. Patient identification and proposed procedure were verified by the physician in the pre-procedure area. Mental Status Examination: alert and oriented. Airway Examination: normal oropharyngeal airway and neck mobility. Respiratory Examination: clear to auscultation. CV Examination: normal. Prophylactic Antibiotics: The patient does not require prophylactic antibiotics. Prior Anticoagulants: The patient has taken no previous anticoagulant or antiplatelet agents. ASA Grade Assessment: II - A patient with mild systemic disease. After reviewing the risks and benefits, the patient was deemed in satisfactory condition to undergo the procedure. The anesthesia plan was to use moderate sedation / analgesia (conscious sedation). Immediately prior to administration of medications, the patient was re-assessed for adequacy to receive sedatives. The heart rate, respiratory rate, oxygen saturations, blood pressure, adequacy of pulmonary ventilation, and response to care were monitored throughout the procedure. The physical status of the patient was re-assessed after the procedure. After obtaining informed consent, the endoscope was passed under direct vision. Throughout the procedure, the patient's blood pressure, pulse, and oxygen saturations were monitored continuously. The colonoscope was introduced through the mouth, and advanced to the second part of duodenum. The upper GI endoscopy was accomplished without difficulty. The patient tolerated the procedure well. Moderate Sedation: Moderate (conscious) sedation was administered by the endoscopy nurse and supervised by the endoscopist. The following parameters were monitored: oxygen saturation, heart rate, blood pressure, and response to care. Total physician intraservice time was 15 minutes. Scope In: 4:19:42 PM Scope Withdrawal Time 0 hours 0 minutes 2 seconds Scope Out: 4:31:28 PM Total Procedure Duration Time 0 hours 11 minutes 46 seconds Findings: LA Grade B (one or more mucosal breaks greater than 5 mm, not extending between the tops of two mucosal folds) esophagitis with no bleeding was found 34 to 39 cm from the incisors. Few non-bleeding superficial gastric ulcers with no stigmata of bleeding were found in the prepyloric region of the stomach. The largest lesion was 3 mm in largest dimension. Diffuse prominent gastric folds were found in the gastric body. Many oozing cratered duodenal ulcers with a visible vessel were found in the duodenal bulb. The largest lesion was 10 mm in largest dimension. Area was successfully injected with 5 mL of a 1:10,000 solution of epinephrine for hemostasis. Coagulation for hemostasis using heater probe was successful. Biopsies were taken with a cold forceps for histology. Biopsies were taken with a cold forceps for histology. Verification of patient identification for the specimen was done. Estimated blood loss was minimal. Impression: - LA Grade B reflux esophagitis. - Non-bleeding gastric ulcers with no stigmata of bleeding. - Enlarged gastric folds. - Multiple oozing duodenal ulcers with a visible vessel. Injected. Treated with a heater probe. Biopsied. Recommendation: - Return patient to hospital solo for ongoing care. - Clear liquid diet today. - Use Protonix (pantoprazole) 40 mg PO BID for 8 weeks. - Use sucralfate tablets 1 gram PO QID for 4 weeks. - Continue present medications. Procedure Code(s): --- Professional --- 93900, 59, Esophagogastroduodenoscopy, flexible, transoral; with control of bleeding, any method 35818, Esophagogastroduodenoscopy, flexible, transoral; with biopsy, single or multiple 18004, 59, Moderate sedation services provided by the same physician or other qualified health healthcare insurance sales agent performing the diagnostic or therapeutic service that the sedation supports, requiring the presence of an independent trained observer to assist in the monitoring of the patient's level of consciousness and physiological status; initial 15 minutes of intraservice time, patient age 5 years or older CPT copyright 2017 [employer]. All rights reserved. The codes documented in this report are preliminary and upon sewer pipe offbearer review may be revised to meet current compliance requirements. J Luis Newton DO 02/07/2022 4:54:23 PM This report has been signed electronically. Number of Addenda: 1 Note Initiated On: 02/07/2022 4:01 PM Addendum Number: 1 Addendum Date: 08/27/2022 6:33:05 AM MAC was used as sedation for this procedure. J Luis Newton DO 08/27/2022 6:33:10 AM This report has been signed electronically.
--- NOTE | 2022-02-07 16:56 | OP.CCLET_ITS ---
08/27/2022 Blaze Louis [address] [place] [address] Re : Upper GI endoscopy procedure for [facility] Dear Dr. Louis This procedure was performed on Monday, February 07, 2022. My impressions and recommendations are as follows: Impressions : - LA Grade B reflux esophagitis. - Non-bleeding gastric ulcers with no stigmata of bleeding. - Enlarged gastric folds. - Multiple oozing duodenal ulcers with a visible vessel. Injected. Treated with a heater probe. Biopsied. Recommendations : - Return patient to hospital solo for ongoing care. - Clear liquid diet today. - Use Protonix (pantoprazole) 40 mg PO BID for 8 weeks. - Use sucralfate tablets 1 gram PO QID for 4 weeks. - Continue present medications. My findings are described in the full procedure note, which is enclosed. If I can be of further assistance, please feel free to contact me at . Sincerely, J Luis Newton, 02/07/2022 4:54:23 PM This report has been signed electronically.
--- NOTE | 2022-02-07 17:01 | OP.COLON_ITS ---
Patient Name: Neto Weston Procedure Date: 02/07/2022 4:31 PM Date of : 1965 Age: 56 Procedure: Colonoscopy Indications: Chronic diarrhea, Melena Providers: J Luis Newton DO Medicines: See the Anesthesia note for documentation of the administered medications Patient Profile: This is a 56 year old male. Refer to note in patient chart for documentation of history and physical. Patient has symptoms of acute epigastric abdominal pain. Last Colonoscopy: date unknown. Unable to locate last colonoscopy report. Complications: No immediate complications. Procedure: Pre-Anesthesia Assessment: - Prior to the procedure, a History and Physical was performed, and patient medications and allergies were reviewed. The risks and benefits of the procedure and the sedation options and risks were discussed with the patient. All questions were answered and informed consent was obtained. Patient identification and proposed procedure were verified by the physician in the pre-procedure area. Mental Status Examination: alert and oriented. Airway Examination: normal oropharyngeal airway and neck mobility. Respiratory Examination: clear to auscultation. CV Examination: normal. Prophylactic Antibiotics: The patient does not require prophylactic antibiotics. Prior Anticoagulants: The patient has taken no previous anticoagulant or antiplatelet agents. ASA Grade Assessment: II - A patient with mild systemic disease. After reviewing the risks and benefits, the patient was deemed in satisfactory condition to undergo the procedure. The anesthesia plan was to use moderate sedation / analgesia (conscious sedation). Immediately prior to administration of medications, the patient was re-assessed for adequacy to receive sedatives. The heart rate, respiratory rate, oxygen saturations, blood pressure, adequacy of pulmonary ventilation, and response to care were monitored throughout the procedure. The physical status of the patient was re-assessed after the procedure. After I obtained informed consent, the scope was passed under direct vision. Throughout the procedure, the patient's blood pressure, pulse, and oxygen saturations were monitored continuously. The colonoscope was introduced through the anus and advanced to the terminal ileum. The colonoscopy was performed without difficulty. The patient tolerated the procedure well. The quality of the bowel preparation was good. Moderate Sedation: Moderate (conscious) sedation was administered by the endoscopy nurse and supervised by the endoscopist. The patient's oxygen saturation, heart rate, blood pressure and response to care were monitored. Total physician intraservice time was 15 minutes. Scope In: 4:36:44 PM Scope Withdrawal Time 0 hours 8 minutes 36 seconds Scope Out: 4:49:41 PM Total Procedure Duration Time 0 hours 12 minutes 57 seconds Findings: Hemorrhoids were found on perianal exam. An area of moderately congested mucosa was found in the sigmoid colon. An area of mildly congested mucosa was found in the recto-sigmoid colon, in the sigmoid colon, in the descending colon, at the hepatic flexure and in the ascending colon. Biopsies were taken with a cold forceps for histology. Verification of patient identification for the specimen was done. Estimated blood loss was minimal. A scattered area of the terminal ileum was congested. Biopsies were taken with a cold forceps for histology. Verification of patient identification for the specimen was done. Estimated blood loss was minimal. Impression: - Hemorrhoids found on perianal exam. - Congested mucosa in the sigmoid colon. - Congested mucosa in the recto-sigmoid colon, in the sigmoid colon, in the descending colon, at the hepatic flexure and in the ascending colon. Biopsied. - Congested mucosa in the terminal ileum. Biopsied. Recommendation: - Discharge patient to home. - Resume previous diet. - Continue present medications. - Await pathology results. - Repeat colonoscopy in 5 years for surveillance based on pathology results. Procedure Code(s): --- Professional --- 56749, Colonoscopy, flexible; with biopsy, single or multiple 73387, 59, Moderate sedation services provided by the same physician or other qualified health interior plant caretaker performing the diagnostic or therapeutic service that the sedation supports, requiring the presence of an independent trained observer to assist in the monitoring of the patient's level of consciousness and physiological status; initial 15 minutes of intraservice time, patient age 5 years or older CPT copyright 2017 [employer]. All rights reserved. The codes documented in this report are preliminary and upon microsoft bi architect review may be revised to meet current compliance requirements. J Luis Newton DO 02/07/2022 5:00:34 PM This report has been signed electronically. Number of Addenda: 1 Note Initiated On: 02/07/2022 4:31 PM Addendum Number: 1 Addendum Date: 08/27/2022 6:33:18 AM MAC was used as sedation for this procedure. J Luis Newton DO 08/27/2022 6:33:22 AM This report has been signed electronically.
--- NOTE | 2022-02-07 17:02 | OP.CCLET_ITS ---
08/27/2022 Blaze Louis [address] [place] [address] Re : Colonoscopy procedure for [facility] Dear Dr. Louis This procedure was performed on Monday, February 07, 2022. My impressions and recommendations are as follows: Impressions : - Hemorrhoids found on perianal exam. - Congested mucosa in the sigmoid colon. - Congested mucosa in the recto-sigmoid colon, in the sigmoid colon, in the descending colon, at the hepatic flexure and in the ascending colon. Biopsied. - Congested mucosa in the terminal ileum. Biopsied. Recommendations : - Discharge patient to home. - Resume previous diet. - Continue present medications. - Await pathology results. - Repeat colonoscopy in 5 years for surveillance based on pathology results. My findings are described in the full procedure note, which is enclosed. If I can be of further assistance, please feel free to contact me at . Sincerely, J Luis Newton, 02/07/2022 5:00:34 PM This report has been signed electronically.
[2022-02-07 17:06] LABS: Bedside Glucose 119 mg/dL (74-106)
[2022-02-07] MEDS: DULoxetine Hcl 60 MG Capsule PO (21:49)
[2022-02-07] MEDS: traZODone 50 MG Tablet 150 MG PO (21:50)
[2022-02-07] MEDS: Pramipexole Di-HCl 0.25 MG Tablet PO (21:51)
[2022-02-07] MEDS: Atorvastatin Calcium 80 MG Tablet PO (21:51)
[2022-02-07 22:06] LABS: Bedside Glucose 133 mg/dL (74-106)
[2022-02-08] VITALS (20 sets, daily range): BP systolic 109–128; BP diastolic 55–75; PULSE 78–82; RESP 15–21; TEMP 36.2–36.6; O2SAT 90–100
[2022-02-08] MEDS: 0.9% Saline Lock 10 ML Syringe IV ×2 (03:07→06:58)
[2022-02-08] MEDS: Morphine 2 MG/ML Syringe IV ×5 (03:08→21:33)
[2022-02-08 03:17] LABS: Absolute Lymphocyte Count 1.07 X10^3/uL (0.83-4.51); Absolute Neutrophil Count 7.5 X10^3/uL (2.0-7.7); Basophil# 0.07 X10^3/uL; Basophil% 0.7 % (0-1); Eosinophil# 0.35 X10^3/uL; Eosinophils% 3.6 % (0-5); Hematocrit 28.3 % (40-54); Hemoglobin 8.1 g/dL (13.0-16.5); Lymphocyte # 1.07 X10^3/ul (0.83-4.51); Lymphocyte % 11.1 % (19-41); Mean Corp Hgb Conc 28.6 g/dL (32-36); Mean Corpuscular Hgb 25.5 pg (27.0-32.0); Mean Platelet Vol. 9.5 fl (6.2-12.0); Monocyte% 7.2 % (0-10); NRBC Flagged by Analyzer 1.2 % (0-5); Neutrophil # 7.46 X10^3/uL (2.7-7.7); Neutrophil % 77.1 % (47-70); Platelet Count 210 K/mm3 (150-450); RBC Distribution Width CV 17.6 % (11.6-14.6); RBC Distribution Width SD 56.8 fl (35.1-43.9); Red Blood Count 3.18 M/mm3 (4.6-6.2); White Blood Count 9.7 K/mm3 (4.4-11.0)
[2022-02-08 03:44] LABS: ALB/GLOB Ratio 0.9 RATIO (0.9-2.4); AST(SGOT) 21 U/L (15-37); Alanine Aminotransfer ALT/SGPT 16 U/L (16-61); Alkaline Phosphatase 60 U/L (45-117); Anion Gap 4 (5-15); BUN 9 mg/dL (7-18); BUN/Creat Ratio 10.8 RATIO (10-20); Calcium,Total 8.1 mg/dL (8.5-10.1); Chloride 115 mmol/L (98-107); Creatinine, Serum 0.83 mg/dL (0.70-1.30); EST Glomerular Filtration Rate 101 mL/min (>60); Est Glom Filt Rate - Afr Amer 123 mL/min (>60); Estimated Creatinine Clearance 102.61 ml/min; Globulin 3.2 g/dL (2.2-4.2); Glucose 144 mg/dL (74-106); Potassium 3.7 mmol/L (3.5-5.1); Protein, Total 6.2 g/dL (6.4-8.2); Sodium Level 144 mmol/L (136-145)
--- NOTE | 2022-02-08 05:45 | PN.CC_ITS ---
Assessment & Plan Assessment/Plan (1) Anemia: (2) Peripheral vascular disease: PLAN: RECOMMENDATIONS: 1. Continue to monitor H&H daily. Transfuse if hemoglobin drops below 7 g/dL. 2. Liberalize diet if okay from GI perspective. 3. Stop continuous PPI therapy and transition to Protonix 40 mg twice daily and sucralfate as ordered. 4. Continue current pain control regimen for lower extremity pain. 5. Encourage incentive spirometer use and mobilize patient as tolerated. 6. Wean supplemental oxygen to maintain saturations at or above 90%. 7. The patient is medically stable for transfer out of the intensive care unit. IMPRESSIONS: 1. Acute blood loss anemia secondary to upper GI bleed Appears to be secondary to upper gastrointestinal bleed. EGD revealed nonbleeding gastric ulcers along with multiple oozing duodenal ulcers with visible vessel which was injected and treated with a heater probe. The patient has stabilized from a blood count perspective. I would recommend that we continue to monitor H&H daily, with plans to transfuse if hemoglobin drops below 7 g/dL. The patient will be transition from continuous PPI infusion to Protonix twice daily and sucralfate as ordered. Recommend liberalizing diet today if ok ay from a GI perspective. 2. Peripheral vascular disease The patient does appear to have significant lower extremity arterial disease, for which vascular surgery has evaluated the patient in the past. Continue supportive measures for now. No indication for any inpatient interventions at this time. The patient will likely require follow-up with vascular surgery on an outpatient basis. 3. Acute kidney injury Resolved. Likely prerenal in etiology/ischemic ATN in the setting of blood loss anemia. With supplementation of blood products and fluids, creatinine has improved. Continue to monitor urine output. No current indication for renal replacement therapy. 4. History of coronary artery disease status post CABG/atrial fibrillation/obstructive sleep apnea/hypertension/prior tobacco dependency Complicates care, management, recovery and prognosis. Continue home medications as indicated. This note was generated with [employer] dictation software. It may contain incorrect words, spelling, and punctuation that were not noted in checking the note before signing. Subjective Subjective The patient was seen and examined at the bedside this morning. Events from the last 24 hours have been reviewed. The patient is currently afebrile, hemodynamically stable and maintaining appropriate oxygen saturations on 2 L/min via nasal cannula. Hemoglobin has improved from 5.4 g/dL on admission to 8.1 g/dL this morning. The patient has received a total of 3 units of packed red blood cells to date. Creatinine has normalized. Upper endoscopy yesterday revealed reflux esophagitis, nonbleeding gastric ulcers and multiple oozing duodenal ulcers. The patient reported the presence of his chronic lower extremity pain this morning and is anxious to have his diet liberalized. Objective Data Objective Data The patient's most recent lab work, culture data and imaging studies have all been personally reviewed. Vital Signs: Vital Signs Temp Pulse Resp BP Pulse Ox 97.8 F 79 18 115/60 94 02/08/22 00:00 02/08/22 05:00 02/08/22 05:00 02/08/22 05:00 02/08/22 05:00 Oxygen Flow Rate (L/min) 2 Oxygen Delivery Method Nasal Cannula Weight: 80.4 kg Body Mass Index (BMI) 25.0 Intake & Output: Intake and Output for Last 24 Hours 02/06/22 02/07/22 02/08/22 23:59 23:59 23:59 Intake Total 4800 / 4800 2866.00 / 2866.00 300 / 300 Output Total 1675 / 1775 1280 / 1280 500 / 500 Balance 3125 / 3025 1586.00 / 1586.00 -200 / -200 Medical Nutrition Assessment Dietitian: Malnutrition Criteria Met Start: 02/07/22 09:54 Freq: Status: Active Protocol: Document 02/07/22 09:54 (Rec: 02/07/22 09:54 [id number]) Nutrition Malnutrition Evidence of Malnutrition Exists Yes Malnutrition (moderate): Chronic Evidenced By Suboptimal Energy Intake ( Moderate),Weight Loss ( Moderate) Clinical Problem Chronic Disease or Condition Related Malnutrition Etiology moderate, chronic malnutrition r/t inadequate energy intake d/t decreased appetite Signs/Symptoms as evidenced by reported unintentional wt loss of ~43#/ 20% x 1 year; estimated PO intake meeting <75% of estimated energy needs >3 months Status Active Problem Recommendation Dietitian Recommendations/Changes recommend carbohydrate controlled, no added salt diet as medically indicated; recommend 120mL ensure clear/ glucerna 4x/day as PO diet is advanced d/t malnutrition. Lab / Micro Data Attestation: I reviewed the patient's lab results. Result Diagrams: 02/08/22 03:10 02/08/22 03:10 Labs: Laboratory Results - last 24 hr 02/06/22 12:55: Diff Path Review Reviewed 02/06/22 13:35: Crossmatch See Detail 02/06/22 13:35: Crossmatch See Detail 02/07/22 06:12: POC Glucose 94 02/07/22 10:50: POC Glucose 93 02/07/22 17:01: POC Glucose 119 H 02/07/22 21:57: POC Glucose 133 H 02/08/22 03:10: WBC 9.7, RBC 3.18 L, Hgb 8.1 L, Hct 28.3 L, MCV 89.0, MCH 25.5 L , MCHC 28.6 L, RDW Std Deviation 56.8 H, RDW Coeff of Arleen 17.6 H, Plt Count 210, MPV 9.5, Immature Gran % (Auto) 0.300, Neut % (Auto) 77.1 H, Lymph % (Auto) 11.1 L, Winston % (Auto) 7.2, Eos % (Auto) 3.6, Baso % (Auto) 0.7, Absolute Neuts (auto) 7.5, Absolute Lymphs (auto) 1.07, Nucleated RBC % 1.2 02/08/22 03:10: Sodium 144, Potassium 3.7, Chloride 115 H, Carbon Dioxide 25.0, Anion Gap 4 L, BUN 9, Creatinine 0.83, Estim Creat Clear Calc 102.61, Est GFR (MDRD) Af Amer 123, Est GFR (MDRD) Non-Af 101, BUN/Creatinine Ratio 10.8, Glucose 144 H, Calcium 8.1 L, Total Bilirubin 0.70, AST 21, ALT 16, Alkaline Phosphatase 60, Total Protein 6.2 L, Albumin 3.0 L, Globulin 3.2, Albumin/Globulin Ratio 0.9 Micro: Microbiology 02/07/22 10:45 Nasal Secretion SARS-CoV-2 Antigen (Rapid) - Final 02/06/22 13:35 Stool Stool Occult Blood (JEANETTE) - Final Occult Blood Positive Physical Exam Const alert and no apparent distress General Appearance: cooperative HEENT normocephalic, head/scalp atraumatic and moist oral mucous membranes Eyes PERRL, EOMs intact bilaterally and conjunctivae normal Neck supple General: trachea midline Chest inspection of chest normal Resp Auscultation: diminished lung sounds; Negative for rales, rhonchi or wheezes Cardio regular rate and regular rhythm GI normal to inspection, nondistended, normoactive bowel sounds Extremity no clubbing, cyanosis or edema Skin no rashes or lesions noted Neuro CN's II-XII intact bilaterally and no focal motor deficits Psych cooperative and affect normal Charges/Coding Visit Charges Inpatient E&M: 63474 Subs Hosp L3
[2022-02-08 06:11] LABS: Bedside Glucose 146 mg/dL (74-106)
[2022-02-08] MEDS: Albuterol 2.5 MG/3 ML VIAL.NEB. INHALATION ×3 (06:57→19:48)
[2022-02-08] MEDS: Budesonide Respules 0.5 MG/2 ML AMPUL.NEB. INHALATION ×2 (06:57→19:48)
--- NOTE | 2022-02-08 07:07 | NURSING ---
Breathing treatment scanned by this RN. RT in room giving treatment to pt.
[2022-02-08] MEDS: Ezetimibe 10 MG Tablet PO (08:09)
[2022-02-08] MEDS: Cyanocobalamin 500 MCG Tablet 1000 MCG PO (08:10)
[2022-02-08] MEDS: DULoxetine Hcl 30 MG Capsule PO (08:10)
[2022-02-08] MEDS: Gabapentin 600 MG Tablet 1200 MG PO ×3 (08:11→16:22)
[2022-02-08] MEDS: Loratadine 10 MG Tablet PO (08:12)
[2022-02-08] MEDS: levETIRAcetam 500 MG Tablet PO ×2 (08:12→21:32)
[2022-02-08] MEDS: Pyridoxine HCl 50 MG Tablet PO (08:12)
[2022-02-08] MEDS: Sotalol Hydrochloride 80 MG Tablet 120 MG PO ×2 (08:13→21:30)
[2022-02-08] MEDS: Pantoprazole Sodium 40 MG Tablet PO ×2 (08:14→21:47)
[2022-02-08] MEDS: Sucralfate 1 GM Tablet PO ×4 (08:15→21:31)
[2022-02-08] MEDS: Insulin Lispro 100 UNIT/ML INSULN.PEN SC ×2 (10:56→21:32)
[2022-02-08] MEDS: Acetaminophen 325 MG Tablet 650 MG PO ×2 (11:00→18:46)
[2022-02-08] MEDS: oxyCODONE 5 MG Tablet PO ×2 (11:00→18:46)
[2022-02-08 11:01] LABS: Bedside Glucose 165 mg/dL (74-106)
--- NOTE | 2022-02-08 11:15 | PCM.PN.HOSP ---
Subjective Subjective No specific overnight complaints. Patient admits that he does wear oxygen at home about 2 L and does utilize a CPAP at night. He states his leg pain is better and has had no abdominal pain. No issues with clear liquid. Objective Data Objective Data Vital Signs: Vital Signs Temp Pulse Resp BP Pulse Ox 97.1 F L 80 18 116/75 100 02/08/22 10:17 02/08/22 10:17 02/08/22 10:17 02/08/22 10:17 02/08/22 10:17 Oxygen Flow Rate (L/min) 4 Oxygen Delivery Method Nasal Cannula Weight: 82.5 kg Body Mass Index (BMI) 25.0 Intake & Output: Intake and Output for Last 24 Hours 02/06/22 02/07/22 02/08/22 23:59 23:59 23:59 Intake Total 4800 / 4800 2866.00 / 2866.00 389 / 389 Output Total 1675 / 1775 1280 / 1280 500 / 500 Balance 3125 / 3025 1586.00 / 1586.00 -111 / -111 Medical Nutrition Assessment Dietitian: Malnutrition Criteria Met Start: 02/07/22 09:54 Freq: Status: Active Protocol: Document 02/07/22 09:54 AG (Rec: 02/07/22 09:54 [id number]) Nutrition Malnutrition Evidence of Malnutrition Exists Yes Malnutrition (moderate): Chronic Evidenced By Suboptimal Energy Intake ( Moderate),Weight Loss ( Moderate) Clinical Problem Chronic Disease or Condition Related Malnutrition Etiology moderate, chronic malnutrition r/t inadequate energy intake d/t decreased appetite Signs/Symptoms as evidenced by reported unintentional wt loss of ~43#/ 20% x 1 year; estimated PO intake meeting <75% of estimated energy needs >3 months Status Active Problem Recommendation Dietitian Recommendations/Changes recommend carbohydrate controlled, no added salt diet as medically indicated; recommend 120mL ensure clear/ glucerna 4x/day as PO diet is advanced d/t malnutrition. Lab / Micro Data Result Diagrams: 02/08/22 03:10 02/08/22 03:10 Labs: Laboratory Results - last 24 hr 02/06/22 12:55: Diff Path Review Reviewed 02/06/22 13:35: Crossmatch See Detail 02/06/22 13:35: Crossmatch See Detail 02/07/22 17:01: POC Glucose 119 H 02/07/22 21:57: POC Glucose 133 H 02/08/22 03:10: WBC 9.7, RBC 3.18 L, Hgb 8.1 L, Hct 28.3 L, MCV 89.0, MCH 25.5 L, MCHC 28.6 L, RDW Std Deviation 56.8 H, RDW Coeff of Arleen 17.6 H, Plt Count 210, MPV 9.5, Immature Gran % (Auto) 0.300, Neut % (Auto) 77.1 H, Lymph % (Auto) 11.1 L, Treasure % (Auto) 7.2, Eos % (Auto) 3.6, Baso % (Auto) 0.7, Absolute Neuts (auto) 7.5, Absolute Lymphs (auto) 1.07, Nucleated RBC % 1.2 02/08/22 03:10: Sodium 144, Potassium 3.7, Chloride 115 H, Carbon Dioxide 25.0, Anion Gap 4 L, BUN 9, Creatinine 0.83, Estim Creat Clear Calc 102.61, Est GFR (MDRD) Af Amer 123, Est GFR (MDRD) Non-Af 101, BUN/Creatinine Ratio 10.8, Glucose 144 H, Calcium 8.1 L, Total Bilirubin 0.70, AST 21, ALT 16, Alkaline Phosphatase 60, Total Protein 6.2 L, Albumin 3.0 L, Globulin 3.2, Albumin/Globulin Ratio 0.9 02/08/22 06:07: POC Glucose 146 H 02/08/22 10:55: POC Glucose 165 H Micro: Microbiology 02/07/22 10:45 Nasal Secretion SARS-CoV-2 Antigen (Rapid) - Final 02/06/22 13:35 Stool Stool Occult Blood (JEANETTE) - Final Occult Blood Positive Physical Exam Const alert, oriented x3, no apparent distress and average body habitus Constitutional Narrative: Upper middle-aged white male sitting up in bed, eating breakfast and watching television,, appears comfortable, patient appears much older than stated age, nontoxic, nursing at bedside General Appearance: cooperative Exam Limitations: no limitations Nutritional Appearance: overweight HEENT normocephalic, head/scalp atraumatic, hearing grossly normal bilaterally and moist oral mucous membranes HEENT Narrative: Poor dentition, no thrush, Mallampati 3 Head and Scalp: normocephalic Resp normal respiratory effort, no retractions, no use of accessory muscles and clear to auscultation bilaterally Resp Narrative: Diffusely diminished with few scattered end expiratory wheezes but clear otherwise Auscultation: wheezes; Negative for crackles, rales or rhonchi Cardio regular rate, regular rhythm, S1 normal heart sound, S2 normal heart sound, no murmurs, no rub, no gallops, no clicks and no JVD GI normal to inspection, nondistended, normoactive bowel sounds, soft to palpation, non-tender and non-distended Extremity normal to inspection, full ROM and no clubbing, cyanosis or edema Extremity Narrative: Reduced bilateral lower extremity pedal pulses with left being fairly absent and nondopplerable however cap refill is 1+ in the lower extremity is not cold but is cool Neuro oriented x3, moves all extremities and no focal motor deficits Sensorium / Orientation: awake and alert Speech: speech normal Assessment & Plan Assessment/Plan (1) Acute anemia: (2) Acute GI bleeding: (3) Hypotension: (4) PAD (peripheral artery disease): (5) NIGEL (acute kidney injury): PLAN: Acute blood loss anemia secondary to suspected GI bleed -Guaiac positive on admission -Patient has been on aspirin and Plavix due to peripheral arterial disease -Currently on hold -Status post 2 units packed red blood cells on 02/06/2022 and 1 unit on 02/07/2022 -Hemoglobin 8.1 this morning -EGD showed multiple oozing duodenal ulcers as well as grade B esophagitis -Status post epi and heater probe -Biopsies taken pathology is pending -Protonix 40 mg p.o. twice daily -Carafate for 4 weeks -Colonoscopy showed hemorrhoids as well as congested mucosa of the rectosigmoid and sigmoid colon, descending colon, ascending colon and terminal ileum -Biopsies taken and pathology is pending -Patient is hemodynamically stable -Need to hold Plavix and aspirin for 5 days at discharge -Appreciate GI and CCM input -Anticipate discharge in the next 24 hours Hypotension -Resolved Peripheral vascular disease -Patient has known severe lower extremity vascular disease -Has been noncompliant with follow-up in Dr. Mcdonald's office -The emergency department did contact Dr. Mcdonald and he noted he would see the patient in consult on 02/07/2022 -Aspirin and Plavix on hold -Discussed the case with vascular surgery today as they have not seen the patient in consult and given no acute findings and his vascular disease with the lower extremities there is nothing acutely to do and he will follow up with the patient is an outpatient -We will give discharge information with referral to his office to be established within the next week after discharge History of CAD/HTN/HPL -Remote history of CABG -Aspirin and Plavix on hold for another 5 days -Antihypertensives on hold -Should be able to reinitiate on discharge -Continue statin/Zetia COPD -Continue inhalers DM-2 -Hold Metformin and restart on discharge -A1c was 5.7 however the patient was markedly anemic -Continue sliding scale -We will continue continue Accu-Cheks as scheduled Seizure disorder -Continue Keppra Neuropathy -Continue gabapentin as ordered Restless leg syndrome -Continue Mirapex History of tobacco abuse -Quit 2 months ago -Encouraged continued cessation History of alcohol abuse -Last drink was 5 days ago -No current signs of withdrawal -Patient does report that he will drink up to 30 beers in 1 day and does it quite often -Recommend continued cessation Depression/anxiety -Continue home antihypertensives and trazodone History of atrial fibrillation -Continue sotalol -Does not plan regulated with a DOAC or Coumadin but is on aspirin and Plavix -Antiplatelet medications are on hold at this time DVT prophylaxis -SCDs -Chemoprophylaxis is contraindicated with bleeding CODE STATUS -Full code Charges/Coding Visit Charges Inpatient E&M: 07619 Subs Hosp L2
[2022-02-08 16:35] LABS: Bedside Glucose 140 mg/dL (74-106)
[2022-02-08] MEDS: DULoxetine Hcl 60 MG Capsule PO (21:29)
[2022-02-08] MEDS: ARIPiprazole 2 MG Tablet PO (21:30)
[2022-02-08] MEDS: traZODone 50 MG Tablet 150 MG PO (21:31)
[2022-02-08] MEDS: Atorvastatin Calcium 80 MG Tablet PO (21:45)
[2022-02-08] MEDS: Pramipexole Di-HCl 0.25 MG Tablet PO (21:46)
[2022-02-08 21:56] LABS: Bedside Glucose 175 mg/dL (74-106)
[2022-02-09 03:30] VITALS: BP 115/68; PULSE 79; RESP 18; TEMP 36.2; O2SAT 96
[2022-02-09] MEDS: Acetaminophen 325 MG Tablet 650 MG PO ×2 (03:44→10:50)
[2022-02-09] MEDS: oxyCODONE 5 MG Tablet PO ×2 (03:44→10:50)
[2022-02-09 04:14] VITALS: PULSE 79
[2022-02-09 06:24] LABS: Absolute Lymphocyte Count 1.23 X10^3/uL (0.83-4.51); Absolute Neutrophil Count 8.1 X10^3/uL (2.0-7.7); Basophil# 0.08 X10^3/uL; Basophil% 0.7 % (0-1); Eosinophil# 0.43 X10^3/uL; Hematocrit 26.8 % (40-54); Hemoglobin 7.5 g/dL (13.0-16.5); Lymphocyte # 1.23 X10^3/ul (0.83-4.51); Lymphocyte % 11.4 % (19-41); Mean Corpuscular Hgb 25.1 pg (27.0-32.0); Mean Corpuscular Volume 89.6 fL (80-94); Mean Platelet Vol. 9.8 fl (6.2-12.0); Monocyte# 0.87 X10^3/uL; Monocyte% 8.1 % (0-10); NRBC Flagged by Analyzer 1.4 % (0-5); Neutrophil # 8.14 X10^3/uL (2.7-7.7); Neutrophil % 75.3 % (47-70); Platelet Count 186 K/mm3 (150-450); RBC Distribution Width CV 17.7 % (11.6-14.6); RBC Distribution Width SD 57.7 fl (35.1-43.9); Red Blood Count 2.99 M/mm3 (4.6-6.2); White Blood Count 10.8 K/mm3 (4.4-11.0)
[2022-02-09 06:37] VITALS: PULSE 79
[2022-02-09] MEDS: Insulin Lispro 100 UNIT/ML INSULN.PEN SC ×2 (06:43→10:53)
[2022-02-09] MEDS: Sucralfate 1 GM Tablet PO ×2 (06:44→10:51)
[2022-02-09 07:01] LABS: Bedside Glucose 154 mg/dL (74-106)
--- NOTE | 2022-02-09 07:05 | PN.CC_ITS ---
Assessment & Plan Assessment/Plan (1) Anemia: (2) Peripheral vascular disease: PLAN: RECOMMENDATIONS: 1. Continue to monitor H&H daily. Transfuse if hemoglobin drops below 7 g/dL. 2. Continue Protonix 40 mg twice daily and sucralfate as ordered. 3. Continue current pain control regimen for lower extremity pain. 4. Encourage incentive spirometer use and mobilize patient as tolerated. 5. Wean supplemental oxygen to maintain saturations at or above 90%. 6. Outpatient follow-up with vascular surgery. IMPRESSIONS: 1. Acute blood loss anemia secondary to upper GI bleed Appears to be secondary to upper gastrointestinal bleed. EGD revealed nonbleeding gastric ulcers along with multiple oozing duodenal ulcers with visible vessel which was injected and treated with a heater probe. The patient has stabilized from a blood count perspective. I would recommend that we continue to monitor H&H daily, with plans to transfuse if hemoglobin drops below 7 g/dL. Continue Protonix twice daily and sucralfate as ordered. 2. Peripheral vascular disease The patient does appear to have significant lower extremity arterial disease, for which vascular surgery has evaluated the patient in the past. Continue supportive measures for now. No indication for any inpatient interventions at this time. The patient will likely require follow-up with vascular surgery on an outpatient basis. 3. Acute kidney injury Resolved. Likely prerenal in etiology/ischemic ATN in the setting of blood loss anemia. With supplementation of blood products and fluids, creatinine has improved. Continue to monitor urine output. No current indication for renal replacement therapy. 4. History of coronary artery disease status post CABG/atrial fibrillation/obstructive sleep apnea/hypertension/prior tobacco dependency Complicates care, management, recovery and prognosis. Continue home medications as indicated. This note was generated with [employer] dictation software. It may contain incorrect words, spelling, and punctuation that were not noted in checking the note before signing. Subjective Subjective The patient was seen and examined at the bedside this morning. Events from the last 24 hours have been reviewed. The patient is currently afebrile, hemodynamically stable and maintaining appropriate oxygen saturations on 3 L/min via nasal cannula. The patient is documented to be overall net +5.5 L for the hospitalization. Hemoglobin has dropped to 7.5 g/dL this morning. Platelet count is stable. Objective Data Objective Data The patient's most recent lab work, culture data and imaging studies have all been personally reviewed. Vital Signs: Vital Signs Temp Pulse Resp BP Pulse Ox 97.2 F L 79 18 115/68 96 02/09/22 03:30 02/09/22 06:37 02/09/22 03:30 02/09/22 03:30 02/09/22 03:30 Oxygen Flow Rate (L/min) 3 Oxygen Delivery Method Nasal Cannula Weight: 82.7 kg Body Mass Index (BMI) 25.0 Intake & Output: Intake and Output for Last 24 Hours 02/07/22 02/08/22 02/10/22 23:59 23:59 00:59 Intake Total 2866.00 / 2866.00 1658.83 / 1778.83 342 / 342 Output Total 1280 / 1280 500 / 500 700 / 700 Balance 1586.00 / 1586.00 1158.83 / 1278.83 -358 / -358 Medical Nutrition Assessment Dietitian: Malnutrition Criteria Met Start: 02/07/22 09:54 Freq: Status: Active Protocol: Document 02/07/22 09:54 (Rec: 02/07/22 09:54 [id number]) Nutrition Malnutrition Evidence of Malnutrition Exists Yes Malnutrition (moderate): Chronic Evidenced By Suboptimal Energy Intake ( Moderate),Weight Loss ( Moderate) Clinical Problem Chronic Disease or Condition Related Malnutrition Etiology moderate, chronic malnutrition r/t inadequate energy intake d/t decreased appetite Signs/Symptoms as evidenced by reported unintentional wt loss of ~43#/ 20% x 1 year; estimated PO intake meeting <75% of estimated energy needs >3 months Status Active Problem Recommendation Dietitian Recommendations/Changes recommend carbohydrate controlled, no added salt diet as medically indicated; recommend 120mL ensure clear/ glucerna 4x/day as PO diet is advanced d/t malnutrition. Lab / Micro Data Attestation: I reviewed the patient's lab results. Result Diagrams: 02/09/22 06:08 02/08/22 03:10 Labs: Laboratory Results - last 24 hr 02/08/22 06:07: POC Glucose 146 H 02/08/22 10:55: POC Glucose 165 H 02/08/22 16:20: POC Glucose 140 H 02/08/22 21:21: POC Glucose 175 H 02/09/22 06:08: WBC 10.8, RBC 2.99 L, Hgb 7.5 L, Hct 26.8 L, MCV 89.6, MCH 25.1 L, MCHC 28.0 L, RDW Std Deviation 57.7 H, RDW Coeff of Arleen 17.7 H, Plt Count 186, MPV 9.8, Immature Gran % (Auto) 0.500, Neut % (Auto) 75.3 H, Lymph % (Auto) 11.4 L, Green % (Auto) 8.1, Eos % (Auto) 4.0, Baso % (Auto) 0.7, Absolute Neuts (auto) 8.1 H, Absolute Lymphs (auto) 1.23, Nucleated RBC % 1.4 02/09/22 06:40: POC Glucose 154 H Micro: Microbiology 02/07/22 10:45 Nasal Secretion SARS-CoV-2 Antigen (Rapid) - Final 02/06/22 13:35 Stool Stool Occult Blood (JEANETTE) - Final Occult Blood Positive Physical Exam Const alert and no apparent distress General Appearance: cooperative HEENT normocephalic, head/scalp atraumatic and moist oral mucous membranes Eyes PERRL, EOMs intact bilaterally and conjunctivae normal Neck supple General: trachea midline Chest inspection of chest normal Resp Auscultation: diminished lung sounds; Negative for rales, rhonchi or wheezes Cardio regular rate and regular rhythm GI normal to inspection, nondistended, normoactive bowel sounds Extremity no clubbing, cyanosis or edema Skin no rashes or lesions noted Neuro CN's II-XII intact bilaterally and no focal motor deficits Psych cooperative and affect normal Charges/Coding Visit Charges Inpatient E&M: 97496 Subs Hosp L2
[2022-02-09] MEDS: Albuterol 2.5 MG/3 ML VIAL.NEB. INHALATION (07:06)
[2022-02-09] MEDS: Budesonide Respules 0.5 MG/2 ML AMPUL.NEB. INHALATION (07:07)
[2022-02-09] MEDS: Morphine 2 MG/ML Syringe IV (07:38)
[2022-02-09] MEDS: Gabapentin 600 MG Tablet 1200 MG PO ×2 (07:38→10:51)
[2022-02-09 07:39] VITALS: PULSE 82; RESP 19; O2SAT 95
[2022-02-09] MEDS: 0.9% Saline Lock 10 ML Syringe IV (07:39)
[2022-02-09 08:43] VITALS: BP 124/72; PULSE 98; RESP 18; TEMP 36.2; O2SAT 98
[2022-02-09] MEDS: Sotalol Hydrochloride 80 MG Tablet 120 MG PO (08:49)
[2022-02-09] MEDS: Ezetimibe 10 MG Tablet PO (08:49)
[2022-02-09] MEDS: levETIRAcetam 500 MG Tablet PO (08:49)
[2022-02-09] MEDS: Cyanocobalamin 500 MCG Tablet 1000 MCG PO (08:49)
[2022-02-09] MEDS: Loratadine 10 MG Tablet PO (08:50)
[2022-02-09] MEDS: Pantoprazole Sodium 40 MG Tablet PO (08:50)
[2022-02-09] MEDS: DULoxetine Hcl 30 MG Capsule PO (08:50)
[2022-02-09] MEDS: Pyridoxine HCl 50 MG Tablet PO (08:51)
[2022-02-09 10:56] LABS: Bedside Glucose 215 mg/dL (74-106)
[2022-02-09 11:01] LABS: Hemoglobin 7.4 g/dL (13.0-16.5)
--- NOTE | 2022-02-09 11:16 | DS.PCM_ITS ---
Providers Date of Admission: 02/06/22 Date of Discharge: 02/09/22 Primary Care Physician: Dr. Blaze Louis MD Consultations 02/06/22 16:53 Consult: Gastroenterology Routine Consulting Provider: [facility] Reason for Consult: acute on chronic anemia, GI bleed EMERGENT Consult: No Notified: Yes Date Notified: 02/06/22 Time Notified: 15:21 Method of Notification: Text Consult: Interventional Physiatrist / Pulmonary Medicine Routine Consulting Provider: Pulmonary Medicine [facility] Reason for Consult: acute on chronic anemia, GI bleed EMERGENT Consult: No Notified: Yes Date Notified: 02/06/22 Time Notified: 15:21 Method of Notification: Text 02/06/22 18:48 Consult: Vascular Surgery Routine Consulting Provider: Stephan Mcdonald Reason for Consult: chronic RLE limb ischemia EMERGENT Consult: No Notified: Yes Date Notified: 02/07/22 Time Notified: 08:08 Method of Notification: Text Reason For Visit: ACUTE ANEMIA, RLE LIMB ISCHEMIA Diagnosis Discharge Diagnosis (1) Anemia: Status: Deleted Code(s): D64.9 - Anemia, unspecified (2) Peripheral vascular disease: Status: Acute Code(s): I73.9 - Peripheral vascular disease, unspecified (3) Adrenal nodule: Status: Acute Code(s): E27.8 - Other specified disorders of adrenal gland Medications at Discharge Home Medications gabapentin 1,200 mg PO TIDCM 12/07/15 albuterol sulfate 1 dose IH Q4H PRN PRN 11/09/19 albuterol sulfate 2 puff INHALATION Q6H PRN PRN 11/09/19 nitroglycerin 0.4 mg SUBLINGUAL PRN PRN 11/09/19 aspirin 81 mg tablet,delayed release 81 mg PO DAILY 05/24/20 insulin glargine 10 units SC BREAKFAST 12/18/20 tamsulosin 0.4 mg PO DAILY@1730 12/18/20 isosorbide mononitrate 120 mg tablet,extended release 24 hr 120 mg PO DAILY #90 tab 01/29/21 sotalol 120 mg tablet 120 mg PO BID #180 tab 01/29/21 levetiracetam [Keppra] 500 mg PO BID #60 tab 04/19/21 budesonide-formoterol HFA 160 mcg-4.5 mcg/actuation aerosol inhaler 2 puff INHALATION BID #10.2 g 05/30/21 duloxetine 60 mg capsule,delayed release 60 mg PO QPM #30 cap 09/30/21 furosemide 40 mg PO DAILY #0 tab 10/18/21 promethazine 25 mg PO Q6H PRN #20 tab 12/17/21 duloxetine 30 mg capsule,delayed release 30 mg PO QAM #30 cap 12/24/21 atorvastatin 80 mg tablet 80 mg PO QHS #90 tab 01/17/22 clopidogrel 75 mg tablet 75 mg PO DAILY #90 tab 01/17/22 ezetimibe 10 mg tablet 10 mg PO DAILY #90 tab 01/17/22 lisinopril 10 mg tablet 10 mg PO DAILY #90 tab 01/17/22 metoprolol succinate 100 mg tablet,extended release 24 hr 100 mg PO DAILY #90 tab 01/17/22 aripiprazole 2 mg PO QHS 02/06/22 metformin 1,000 mg PO BID 02/06/22 pantoprazole 40 mg PO BID #60 tab 02/09/22 sucralfate 1 g PO Q6H #120 tab 02/09/22 Hospital Course Operations None Procedures Blood transfusion, Colonoscopy and EGD Summary of Care Provided Minutes Spent on Discharge: 42 Hospital Course: Mr. Weston is a 56-year-old white male who presented to the emergency department at [facility] on 02/06/2022 with right lower extremity pain. Previous arterial Dopplers done in November 2021 showed severe occlusive disease of the right and moderate occlusive disease of the left lower extremity. The patient was scheduled to follow-up with vascular surgery but subsequently failed to show up on 3 separate appointments. He has a known history of CAD status p ost CABG, atrial fibrillation, hypertension, peripheral vascular disease, obstructive sleep apnea, tobacco abuse, and alcohol abuse. Upon presentation to the emergency department he was noted to be hypotensive with a blood pressure of 91/46. He was maintaining appropriate oxygen saturation on his baseline oxygen of 2 to 3 L. His initial laboratory data revealed a mildly elevated white count at 13,000 with a hemoglobin of 5.6. Previously, in September 2021, he had a hemoglobin of 11.0. His BMP showed mild hyponatremia with a sodium of 133, and elevated serum potassium at 5.2, bicarb of 14 and a serum creatinine of 1.54. His lactate was elevated initially at 3.0. A CT of his abdomen pelvis was performed and showed stable occlusion of the right femoral artery with reconstitution of the popliteal artery. There is also severe stenosis of the right common femoral artery with distal occlusion. There is also an insulin note made of a right adrenal mass for which she will need outpatient follow-up. He was transfused with 2 units of packed red blood cells and he was admitted to the medical intensive care unit for management. The patient was seen in consultation by gastroenterology at which time it was recommended the patient undergo an EGD and colonoscopy. He was also maintained on a Protonix drip. His blood pressure improved with transfusion of 2 units packed red blood cell. His follow-up lab on the following morning was found to have a hemoglobin at 6.9 and he was therefore given 1 more unit of packed red blood cells. An EGD and colonoscopy were performed on 02/07/2022. The EGD demonstrated LA grade B reflux esophagitis, nonbleeding gastric ulcers with no stigmata of recent bleeding, enlarged gastric folds and multiple oozing duodenal ulcers with visible vessels. These were injected and treated with heater probe. His colonoscopy showed hemorrhoids on the perianal exam with congested mucosa found at the sigmoid, rectosigmoid, descending, and ascending colon. Biopsies were taken and pathology was pending upon discharge. Recommendations were to continue PPI at 40 mg p.o. twice daily as well as initiate Carafate 4 times daily for 1 month. The patient was progressed from a clear liquid diet to a regular diet and tolerated this well. With regards to his vascular disease the case was discussed with Dr. Mcdonald. None of his symptoms were acute in it was felt that his pain had increased related to his anemia. It was recommended he follow-up in the outpatient office and call on Thursday to make an appointment. This was discussed and emphatically recommended to the patient given his current situation. Dr. Mcdonald's information was given to the patient he was instructed to call on 02/10/2022 for follow-up in his office. His hemoglobin on the a.m. of 02/09/2022 was 7.5. A repeat was done later in the morning for stability and was found to be 7.4.These prescriptions were faxed to his pharmacy and he was instructed to pick them up after discharge. He is also to follow-up with Dr. Newton from gastroenterology within the next 2 weeks. His information was given as well at discharge and he was encouraged to call on 02/10/2022 to make a follow-up appointment. With regards to his adrenal nodule follow-up to his primary care physician was recommended for further outpatient scanning. It was recommended he follow-up with his primary care physician within the next 1 to 2 weeks. Discharge diagnoses: Upper GI bleed secondary to duodenal ulcers Acute anemia secondary to above Hypotension-resolved Chronic peripheral vascular disease Right adrenal nodule--> needs outpatient follow-up Hepatosteatosis NIGEL-resolved CAD Hypertension Hyperlipidemia COPD DM-2 Seizure disorder Neuropathy Restless leg syndrome Tobacco abuse Alcohol abuse Paroxysmal atrial fibrillation Depression Anxiety Physical Exam Const alert, oriented x3, no apparent distress and average body habitus Constitutional Narrative: Upper middle-aged white male sitting up in bed, eating breakfast and watching television, appears comfortable, patient appears much older than stated age, nontoxic General Appearance: cooperative, well developed and appears older than stated age Orientation / Consciousness: awake Exam Limitations: no limitations Nutritional Appearance: overweight HEENT normocephalic, head/scalp atraumatic, hearing grossly normal bilaterally and moist oral mucous membranes HEENT Narrative: Dentition is fair, Mallampati is 2-3 Eyes PERRL and EOMs intact bilaterally Eyes Narrative: pale conjunctiva bilaterally, no scleral icterus Neck no lymphadenopathy, supple and no JVD Neck Narrative: Trachea midline, no thyroid enlargement Resp normal respiratory effort, no retractions, no use of accessory muscles and clear to auscultation bilaterally Resp Narrative: Diffusely diminished with few scattered end expiratory wheezes but clear otherwise, remains on his baseline oxygen at 3 L Auscultation: wheezes; Negative for crackles, rales or rhonchi Cardio regular rate, regular rhythm, S1 normal heart sound, S2 normal heart sound, no murmurs, no rub, no gallops, no clicks and no JVD GI normal to inspection, nondistended, normoactive bowel sounds, soft to palpation, non-tender and non-distended Extremity no clubbing, cyanosis or edema Extremity Narrative: Reduced bilateral lower extremity pedal pulses with left being fairly absent and nondopplerable however cap refill is 1+ in the lower extremity is not cold but is cool Skin no rashes or lesions noted, no wounds, skin turgor normal and no jaundice Skin Narrative: Multiple tattoos, pale Neuro oriented x3, CN's II-XII intact bilaterally, moves all extremities and no focal motor deficits Sensorium / Orientation: awake and alert Speech: speech normal Psych affect normal Psych Narrative: Very polite and gracious Medical Records Data Medical Nutrition Assessment Dietitian: Malnutrition Criteria Met Start: 02/07/22 09:54 Freq: Status: Active Protocol: Document 02/07/22 09:54 (Rec: 02/07/22 09:54 [id number]) Nutrition Malnutrition Evidence of Malnutrition Exists Yes Malnutrition (moderate): Chronic Evidenced By Suboptimal Energy Intake ( Moderate),Weight Loss ( Moderate) Clinical Problem Chronic Disease or Condition Related Malnutrition Etiology moderate, chronic malnutrition r/t inadequate energy intake d/t decreased appetite Signs/Symptoms as evidenced by reported unintentional wt loss of ~43#/ 20% x 1 year; estimated PO intake meeting <75% of estimated energy needs >3 months Status Active Problem Recommendation Dietitian Recommendations/Changes recommend carbohydrate controlled, no added salt diet as medically indicated; recommend 120mL ensure clear/ glucerna 4x/day as PO diet is advanced d/t malnutrition. Weight / BMI Weight Weight: 82.7 kg Body Mass Index (BMI) 25.0 ABG / Lab / Microbiology Data Result Diagrams: 02/09/22 10:42 02/08/22 03:10 Laboratory: Laboratory Results - last 24 hr 02/08/22 10:55: POC Glucose 165 H 02/08/22 16:20: POC Glucose 140 H 02/08/22 21:21: POC Glucose 175 H 02/09/22 06:08: WBC 10.8, RBC 2.99 L, Hgb 7.5 L, Hct 26.8 L, MCV 89.6, MCH 25.1 L, MCHC 28.0 L, RDW Std Deviation 57.7 H, RDW Coeff of Arleen 17.7 H, Plt Count 186, MPV 9.8, Immature Gran % (Auto) 0.500, Neut % (Auto) 75.3 H, Lymph % (Auto) 11.4 L, [place] % (Auto) 8.1, Eos % (Auto) 4.0, Baso % (Auto) 0.7, Absolute Neuts (auto) 8.1 H, Absolute Lymphs (auto) 1.23, Nucleated RBC % 1.4 03/13/22 06:40: POC Glucose 154 H 02/09/22 10:42: Hgb 7.4 L 02/09/22 10:46: POC Glucose 215 H Microbiology: Microbiology 02/07/22 10:45 Nasal Secretion SARS-CoV-2 Antigen (Rapid) - Final 02/06/22 13:35 Stool Stool Occult Blood (JEANETTE) - Final Occult Blood Positive D/C Instructions Discharge Diet: Low fat / Low cholesterol and 1800 Calorie Control Diet Discharge Activity: Return to Normal Activity Return to work on: 02/10/22 Meaningful Use Info Meaningful Use Diagnoses (Choose all that apply): None applicable Discharge Plan Admission Admit Date/Time: 02/06/22 15:16 Primary Reason for Your Visit: R LE Pain Attending Provider: Kristi Lancaster Primary Care Provider: Blaze Louis Consulting Providers: Demarco Gonzalez ; Keshav Jack ; Nely Noland NP ; Stephan Mcdonald Discharge Orders/Prescriptions Prescriptions: New pantoprazole 40 mg Tablet,Delayed Release (Dr/Ec) 40 mg PO BID Qty: 60 RF: 0 sucralfate 1 gram Tablet 1 g PO Q6H Qty: 120 RF: 0 Continued isosorbide mononitrate 120 mg tablet extended release 24 hr 120 mg PO DAILY Qty: 90 RF: 3 sotalol 120 mg tablet 120 mg PO BID Qty: 180 RF: 3 budesonide-formoterol 160-4.5 mcg/actuation HFA aerosol inhaler 2 puff INHALATION BID Qty: 10.2 RF: 5 duloxetine 60 mg capsule,delayed release(DR/EC) 60 mg PO QPM Qty: 30 RF: 1 gabapentin 600 MG tablet 1,200 mg PO TIDCM RF: 0 albuterol sulfate 2.5 MG/3 ML solution for nebulization 1 dose IH Q4H PRN PRN (Reason: Sob &/Or Wheezing) RF: 0 nitroglycerin 0.4 MG tablet, sublingual 0.4 mg sublingual PRN PRN (Reason: chest pain) RF: 0 albuterol sulfate 1 PUFF inhaler 2 puff INHALATION Q6H PRN PRN (Reason: Sob &/Or Wheezing) RF: 0 tamsulosin 0.4 MG capsule 0.4 mg PO DAILY@1730 RF: 0 insulin glargine 100 UNITS/ML insulin pen 10 units SC BREAKFAST RF: 0 levetiracetam [Keppra] 500 mg tablet 500 mg PO BID Qty: 60 RF: 0 furosemide 40 mg tablet 40 mg PO DAILY Qty: 0 RF: 0 promethazine 25 mg tablet 25 mg PO Q6H PRN (Reason: nausea) Qty: 20 RF: 0 metformin 1,000 mg tablet 1,000 mg PO BID RF: 0 aripiprazole 2 mg tablet 2 mg PO QHS RF: 0 duloxetine 30 mg capsule,delayed release(DR/EC) 30 mg PO QAM Qty: 30 RF: 2 atorvastatin 80 mg tablet 80 mg PO QHS Qty: 90 RF: 3 ezetimibe 10 mg tablet 10 mg PO DAILY Qty: 90 RF: 3 lisinopril 10 mg tablet 10 mg PO DAILY Qty: 90 RF: 3 metoprolol succinate 100 mg tablet extended release 24 hr 100 mg PO DAILY Qty: 90 RF: 3 Held aspirin [Adult Aspirin Regimen] 81 mg tablet,delayed release (DR/EC) 81 mg PO DAILY RF: 0 Hold Instructions: Resume on 02/14/22. clopidogrel 75 mg tablet 75 mg PO DAILY Qty: 90 RF: 3 Hold Instructions: Resume on 02/14/22. Discontinued pantoprazole [Protonix] 40 mg tablet,delayed release (DR/EC) 40 mg PO DAILY RF: 0 Referrals / Follow Up: Stephan Mcdonald MD [STAFF PHYSICIAN] - See Referral Note (call Thursday02/10/2022 for an appt) Blaze Louis MD [Primary Care Provider] - Within 2 Weeks (will need follow up scans for adrenal nodule) J Luis Netwon DO [STAFF PHYSICIAN] - See Referral Note (Call Thursday for appt to be seen in 2 weeks as hospital follow-up) Disposition Disposition (needs filled in before D/C Order can be placed): Home, Self Care Charges/Coding Visit Charges Inpatient E&M: 59474 Disch Hosp
== END 2022-02-09 12:37 | disposition home or self-care (01) | DRG 241 ==
LOC: ED 15:09 → ICU 02-07 06:19 → PCU 02-08 15:56
PROVIDERS: Internal Medicine Gastroenterology; Admitting Provider Student in an Organized Health Care Education/Training Program; Emergency Provider Emergency Medicine; PCP Family Medicine; Visit Provider Internal Medicine
PROC: 0DJD8ZZ Inspection of Lower Intestinal Tract, Via Natural or Artificial Opening Endoscopic (ICD-10-PCS; CPT 45378; principal; 2022-02-07 15:55)
DX: K26.4 Chronic or unspecified duodenal ulcer with hemorrhage (principal); N17.0 Acute kidney failure with tubular necrosis; E27.8 Other specified disorders of adrenal gland; I27.21 Secondary pulmonary arterial hypertension; E87.2 Acidosis; E87.1 Hypo-osmolality and hyponatremia; I95.9 Hypotension, unspecified; E11.40 Type 2 diabetes mellitus with diabetic neuropathy, unspecified; I11.0 Hypertensive heart disease with heart failure; G40.909 Epilepsy, unspecified, not intractable, without status epilepticus; J44.9 Chronic obstructive pulmonary disease, unspecified; I50.32 Chronic diastolic (congestive) heart failure; E11.51 Type 2 diabetes mellitus with diabetic peripheral angiopathy without gangrene; I48.0 Paroxysmal atrial fibrillation; Z79.4 Long term (current) use of insulin; I70.221 Atherosclerosis of native arteries of extremities with rest pain, right leg; D62 Acute posthemorrhagic anemia; E87.5 Hyperkalemia; I25.10 Atherosclerotic heart disease of native coronary artery without angina pectoris; E78.5 Hyperlipidemia, unspecified; K52.9 Noninfective gastroenteritis and colitis, unspecified; G25.81 Restless legs syndrome; F41.9 Anxiety disorder, unspecified; F10.10 Alcohol abuse, uncomplicated; K64.9 Unspecified hemorrhoids; K92.2 Gastrointestinal hemorrhage, unspecified; F32.A Depression, unspecified; K21.00 Gastro-esophageal reflux disease with esophagitis, without bleeding; K25.3 Acute gastric ulcer without hemorrhage or perforation; Z79.899 Other long term (current) drug therapy; Z79.02 Long term (current) use of antithrombotics/antiplatelets; Z87.891 Personal history of nicotine dependence; Z79.82 Long term (current) use of aspirin; Z99.81 Dependence on supplemental oxygen
CPT/HCPCS: 36415; 75635; 80048; 80053; 82274; 82962; 83605; 85018; 85025; 85610; 86850; 86900; 86901; 86920; 86922; 87426; 88305; 94640; 97162; 97165; 97802; 97803; 99284; 99406; J7030; J7050; P9016; Q9967; A4216; J2405

== ENCOUNTER 2022-02-17 19:28 | Emergency (ER) | payer MEDICAID, SELFPAY ==
[2022-02-17 19:29] VITALS: BP 135/76; PULSE 139; RESP 18; TEMP 36.4; O2SAT 99; BMI 27.8
[2022-02-17 21:08] VITALS: PULSE 137
--- NOTE | 2022-02-17 21:17 | EKG12_ITS ---
Test Reason : HEADACHE Blood Pressure : / mmHG Vent. Rate : 102 BPM Atrial Rate : 340 BPM P-R Int : 000 ms QRS Dur : 086 ms QT Int : 316 ms P-R-T Axes : 000 064 175 degrees QTc Int : [address] & T wave abnormality, consider inferior ischemia ST & T wave abnormality, consider anterior ischemia Abnormal ECG Confirmed by JHON LOMELI, SMITA ([id number]), sports editor CANDICE ZAZUETA ([id number]) on 02/20/2022 9:29:15 AM Referred By: RUSS Confirmed By:SMITA FERREIRA MD
--- NOTE | 2022-02-17 21:17 | RAD_ITS ---
STUDY: AP PORTABLE UPRIGHT CHEST X-RAY-2 VIEWS 2131 HOURS ON 02/17/2022 REASON FOR EXAM: Male, 56 years old. weakness TECHNIQUE: A 2 view AP portable upright chest x-ray series was performed per protocol. COMPARISON: None. FINDINGS: Previous sternal thoracotomy. A LINQ insertable traffic monitor specialist overlying the left chest. The lungs are clear and expanded. No pulmonary infiltrates, atelectasis, effusion, or pulmonary mass lesions. There is no demonstrated pleural abnormality. Mild cardiomegaly without heart failure.. Normal mediastinum and ranjit. Normal visualized pulmonary arteries. Normal visualized aortic arch and descending thoracic aorta. The visualized osseous structures are without abnormalities. There is no demonstrated abnormality of the visualized soft tissue structures of the upper abdomen. RAD/Chest 1 View (Portable) IMPRESSION: 1. Mild cardiomegaly without heart failure. 2. No other evidence of active cardiopulmonary disease. 3. Presence of a LINQ insertable traffic monitor specialist overlying the left chest. 4. Previous sternal thoracotomy. Electronically Signed: Lamin Whiteside MD at 22:19 EDT ,
--- NOTE | 2022-02-17 21:19 | EX.ED.VIS.HA ---
HPI History of Present Illness Chief Complaint: Headache Narrative Narrative: 56-year-old male presenting for evaluation of head pains. He states that periodically he gets a shock in the center of his head when he is walking. Sometimes this does not happen. He does not have an actual headache. He denies visual complaints, nausea, vomiting. He denies ear pain. He denies chest pain or shortness of breath. He denies abdominal pain. He planes of chronic neuropathy in his lower extremities. This is unchanged. Patient states that in general he does not eat and drink normally. He states that he only eats when his makes him eat. [facility] Medical History (HFpEF) heart failure with preserved ejection fraction Acute hypotension Acute repetitive seizure Atherosclerosis of coronary artery bypass graft without angina pectoris Atherosclerosis of coronary artery of [place] heart without angina pectoris Atrial fibrillation Chest wall contusion Chronic anticoagulation Chronic obstructive pulmonary disease CPAP (continuous positive airway pressure) dependence Diabetes mellitus Essential hypertension Fall from slip, trip, or stumble Fracture of rib Hyperlipidemia Hypertension Leg swelling Lower extremity edema Major depression Metatarsal bone fracture Myocardial infarct Nicotine abuse KENNETH and COPD overlap syndrome PAD (peripheral artery disease) Paroxysmal atrial fibrillation Rectal bleeding Secondary pulmonary arterial hypertension Sleep apnea Smoking greater than 40 pack years Stroke/cerebrovascular accident Suicidal ideation Syncope Typical atrial flutter Home Medications gabapentin 1,200 mg PO TIDCM 12/07/15 [History Last Taken 02/06/22] albuterol sulfate 1 dose IH Q4H PRN PRN 11/09/19 [History Last Taken 02/06/22] albuterol sulfate 2 puff INHALATION Q6H PRN PRN 11/09/19 [History Last Taken 02/05/22] nitroglycerin 0.4 mg SUBLINGUAL PRN PRN 11/09/19 [History Last Taken 02/06/22] aspirin 81 mg tablet,delayed release 81 mg PO DAILY 05/24/20 [History Last Taken 02/06/22] insulin glargine 10 units SC BREAKFAST 12/18/20 [History Last Taken 02/06/22] tamsulosin 0.4 mg PO DAILY@1730 12/18/20 [History Last Taken 02/05/22] isosorbide mononitrate 120 mg tablet,extended release 24 hr 120 mg PO DAILY #90 tab 01/29/21 [Rx Last Taken 02/06/22] sotalol 120 mg tablet 120 mg PO BID #180 tab 01/29/21 [Rx Last Taken 02/06/22] levetiracetam [Keppra] 500 mg PO BID #60 tab 04/19/21 [Rx Last Taken 02/06/22] budesonide-formoterol HFA 160 mcg-4.5 mcg/actuation aerosol inhaler 2 puff INHALATION BID #10.2 g 05/30/21 [Rx Last Taken 02/06/22] duloxetine 60 mg capsule,delayed release 60 mg PO QPM #30 cap 09/30/21 [Rx Last Taken 02/05/22] furosemide 40 mg PO DAILY #0 tab 10/18/21 [Rx Last Taken 02/06/22] promethazine 25 mg PO Q6H PRN #20 tab 12/17/21 [Rx Last Taken 02/06/22] duloxetine 30 mg capsule,delayed release 30 mg PO QAM #30 cap 12/24/21 [Rx Last Taken 02/06/22] atorvastatin 80 mg tablet 80 mg PO QHS #90 tab 01/17/22 [Rx Last Taken 02/05/22] clopidogrel 75 mg tablet 75 mg PO DAILY #90 tab 01/17/22 [Rx Last Taken 02/06/22] ezetimibe 10 mg tablet 10 mg PO DAILY #90 tab 01/17/22 [Rx Last Taken 02/06/22] lisinopril 10 mg tablet 10 mg PO DAILY #90 tab 01/17/22 [Rx Last Taken 02/06/22] metoprolol succinate 100 mg tablet,extended release 24 hr 100 mg PO DAILY #90 tab 01/17/22 [Rx Last Taken 02/06/22] aripiprazole 2 mg PO QHS 02/06/22 [History Last Taken 02/05/22] metformin 1,000 mg PO BID 02/06/22 [History Last Taken 02/06/22] pantoprazole [Protonix] 40 mg PO BID #60 tab 02/09/22 [Rx Last Taken Unknown] sucralfate [Carafate] 1 g PO Q6H #120 tab 02/09/22 [Rx Last Taken Unknown] Allergy/AdvReac Type Severity Reaction Status Date / Time seasonal Allergy SOB Uncoded 02/17/22 19:31 Family History Father CAD (coronary artery disease) COPD (chronic obstructive pulmonary disease) CHF (congestive heart failure) CVA (cerebral vascular accident) Mother COPD (chronic obstructive pulmonary disease) Other Neuropathy Surgical History H/O coronary artery bypass surgery (10/2005) History of coronary artery stent placement (01/05/14) History of left heart catheterization (12/20/20) History of loop recorder (2016) History of open reduction and internal fixation (ORIF) procedure Social History household members: significant other and other housing: house number of children: 2 Smoking Status: Former smoker Electronic Cigarette Use: not used second hand exposure: No alcohol intake: current alcohol intake frequency: a few times a month Alcohol type: beer, wine and hard liquor substance use type: marijuana caffeine: Yes Type: coffee what type of physical activity do you participate in: walking frequency: daily duration: < 15 minutes/day seatbelt use: always do you feel safe at home: Yes ROS ROS ED Constitutional Constitutional ED: Denies chills or fever(s) Eyes Eyes: Denies blurry vision or diplopia ENT ENT ED: Denies rhinorrhea or sore throat Cardiovascular Cardiovascular: Denies chest pain or palpitations Respiratory/Chest Respiratory/Chest: Denies cough or dyspnea Gastrointestinal Gastrointestinal: Denies abdominal pain, nausea or vomiting Genitourinary Genitourinary ED: Denies dysuria Musculoskeletal Musculoskeletal: Reports other Details: Chronic neuropathic pain in the lower extremity ; Denies myalgias Integumentary Denies rash Neurologic Neurologic: Denies headache(s) or paresthesias Psychiatric Psychiatric: Denies anxiety or depression EXAM Physical Exam Const Vital Signs: 02/17/22 19:29 02/17/22 21:08 Temperature 97.5 F L Temperature Source Temporal Pulse Rate 139 H 137 H Respiratory Rate 18 Blood Pressure 135/76 H Blood Pressure Mean 95 Pulse Ox 99 Oxygen Delivery Method Room Air Positive obese and unkempt General Appearance ED: unkempt; Negative for pallor Nutritional Appearance: obese HEENT Reports normocephalic and moist mucous membranes atraumatic Eyes PERRL and EOMs intact bilaterally Neck no lymphadenopathy and supple Resp normal respiratory effort and clear to auscultation bilaterally Cardio regular rate and regular rhythm Neuro CN's II-XII intact bilaterally and no sensory deficits noted Sensorium / Orientation: awake and alert Motor Exam: strength 5/5 throughout Psych Appearance: unkempt Skin General Skin Exam: Negative for jaundice or pallor Lesions: no lesions Rashes: no rashes MDM MDM MDM Narrative Medical decision making narrative: 56-year-old male presenting with sensation of feeling shocks to his head. He states that this is occurring intermittently. He does not have a headache, visual changes. He also complains of chronic neuropathy and after speaking to him at length he states he is out of his gabapentin because he lost some when he moved. He is unable to fill the prescription because it is too soon and his insurance would not cover it. I did obtain blood work and his CBC is at baseline. CMP unremarkable with exception of potassium 3.9 he was given 40 mEq p.o. Chest x-ray shows no acute cardiopulmonary process but does show evidence of cardiomegaly. Radiologist does agree. EKG on my interpretation shows a atrial fibrillation at 102 bpm however while I am evaluating in the room he is in the 90s. He has a history of atrial fibrillation. He states he is not anticoagulated currently because of history of GI bleed. He has not had any black or bloody stools. I did check a high-sensitivity troponin and this is normal at 29. CT of the brain is negative for acute intracranial findings. On reevaluation the patient is doing well. I counseled him on all findings. He requests something for pain and he was given oxycodone. I counseled him that it would not change his insurance coverage if I wrote him for gabapentin because it is still too soon. He is counseled to make follow-up with his primary care physician for a scheduled appointment on Thursday. He acknowledged understanding. Patient stable for discharge. Impression: 1. Head pain 2. Hypokalemia Lab Data Attestation: I reviewed the patient's lab results. Labs: Laboratory Results - last 24 hr 02/17/22 02/17/22 21:30 21:30 WBC 6.0 RBC 3.51 L Hgb 9.0 L Hct 30.4 L MCV 86.6 MCH 25.6 L MCHC 29.6 L RDW Std Deviation 56.6 H RDW Coeff of Arleen 18.1 H Plt Count 199 MPV 10.3 Immature Gran % (Auto) 0.200 Neut % (Auto) 55.4 Lymph % (Auto) 20.6 [place] % (Auto) 13.1 H Eos % (Auto) 9.5 H Baso % (Auto) 1.2 H Absolute Neuts (auto) 3.4 Absolute Lymphs (auto) 1.24 Nucleated RBC % 0 Sodium 142 Potassium 2.9 L Chloride 106 Carbon Dioxide 31.0 Anion Gap 5 BUN 9 Creatinine 0.95 Estim Creat Clear Calc 81.18 Est GFR (MDRD) Af Amer 105 Est GFR (MDRD) Non-Af 87 BUN/Creatinine Ratio 9.4 L Glucose 124 H Calcium 9.2 Total Bilirubin 0.40 AST 17 ALT 18 Alkaline Phosphatase 80 Troponin I High Sens 29 Total Protein 7.0 Albumin 3.5 Globulin 3.5 Albumin/Globulin Ratio 1.0 Radiography Diagnostic Testing: Clinical Impression(s) from Imaging Studies Chest X-Ray 02/17/22 21:17 IMPRESSION: 1. Mild cardiomegaly without heart failure. 2. No other evidence of active cardiopulmonary disease. 3. Presence of a LINQ insertable watch inspector overlying the left chest. 4. Previous sternal thoracotomy. Electronically Signed: Lamin Whiteside MD at 22:19 EDT , Brain CT 02/17/22 21:35 IMPRESSION: 1. Normal unenhanced CT scan of the brain. 2. No evidence of an ischemic or hemorrhagic cerebral infarction or intracranial mass lesion. 3. No subdural, epidural, or intracerebral hematoma, hemorrhage or contusion. 4. Normal calvarium without linear or depressed skull fractures. 5. Normal paranasal sinuses. Electronically Signed: Lamin Whiteside MD at 22:05 EDT , Discharge Plan Triage Chief Complaint: Headache ED Provider: Fernando Meneses Dx/Rx/DC Orders Prescriptions: No Action aspirin [Adult Aspirin Regimen] 81 mg tablet,delayed release (DR/EC) 81 mg PO DAILY RF: 0 Hold Instructions: Resume on 02/14/22. isosorbide mononitrate 120 mg tablet extended release 24 hr 120 mg PO DAILY Qty: 90 RF: 3 sotalol 120 mg tablet 120 mg PO BID Qty: 180 RF: 3 budesonide-formoterol 160-4.5 mcg/actuation HFA aerosol inhaler 2 puff INHALATION BID Qty: 10.2 RF: 5 duloxetine 60 mg capsule,delayed release(DR/EC) 60 mg PO QPM Qty: 30 RF: 1 gabapentin 600 MG tablet 1,200 mg PO TIDCM RF: 0 albuterol sulfate 2.5 MG/3 ML solution for nebulization 1 dose IH Q4H PRN PRN (Reason: Sob &/Or Wheezing) RF: 0 nitroglycerin 0.4 MG tablet, sublingual 0.4 mg sublingual PRN PRN (Reason: chest pain) RF: 0 albuterol sulfate 1 PUFF inhaler 2 puff INHALATION Q6H PRN PRN (Reason: Sob &/Or Wheezing) RF: 0 tamsulosin 0.4 MG capsule 0.4 mg PO DAILY@1730 RF: 0 insulin glargine 100 UNITS/ML insulin pen 10 units SC BREAKFAST RF: 0 levetiracetam [Keppra] 500 mg tablet 500 mg PO BID Qty: 60 RF: 0 furosemide 40 mg tablet 40 mg PO DAILY Qty: 0 RF: 0 promethazine 25 mg tablet 25 mg PO Q6H PRN (Reason: nausea) Qty: 20 RF: 0 metformin 1,000 mg tablet 1,000 mg PO BID RF: 0 aripiprazole 2 mg tablet 2 mg PO QHS RF: 0 sucralfate [Carafate] 1 gram tablet 1 g PO Q6H Qty: 120 RF: 0 pantoprazole [Protonix] 40 mg tablet,delayed release (DR/EC) 40 mg PO BID Qty: 60 RF: 0 duloxetine 30 mg capsule,delayed release(DR/EC) 30 mg PO QAM Qty: 30 RF: 2 atorvastatin 80 mg tablet 80 mg PO QHS Qty: 90 RF: 3 clopidogrel 75 mg tablet 75 mg PO DAILY Qty: 90 RF: 3 Hold Instructions: Resume on 02/14/22. ezetimibe 10 mg tablet 10 mg PO DAILY Qty: 90 RF: 3 lisinopril 10 mg tablet 10 mg PO DAILY Qty: 90 RF: 3 metoprolol succinate 100 mg tablet extended release 24 hr 100 mg PO DAILY Qty: 90 RF: 3 Primary Care Provider: Blaze Louis
--- NOTE | 2022-02-17 21:28 | ED.RN ---
pt is cussing and demanding pain meds.
--- NOTE | 2022-02-17 21:35 | CT_ITS ---
STUDY: CT BRAIN WITHOUT CONTRAST ENHANCEMENT OF 2139 HOURS ON 02/17/2022 REASON FOR EXAM: Male, 56 years old. Pain RADIATION DOSAGE (If Supplied By Facility): CTDIvol = ( 44.99 ) mGy, DLP = ( 796.11 ) mGycm TECHNIQUE: Transaxial CT imaging of the brain was performed without administration of intravenous contrast material. Individualized dose optimization techniques were used for this CT. COMPARISON: No relevant priors. FINDINGS: Normal soft tissue structures. Normal calvarium without linear or depressed skull fractures. Normal size ventricles and extra-axial spaces for the patient''s age. Normal white matter tracts of the cerebral hemispheres. Normal basal ganglia and thalami. Normal brainstem. Normal cerebellum. Normal sella and pituitary. There is no intracranial hemorrhage. No ischemic or hemorrhagic cerebral infarct. No subdural, epidural, or intracerebral hematoma, hemorrhage, or contusion. No acute or chronic sinusitis. CT/Brain/Head without Contrast IMPRESSION: 1. Normal unenhanced CT scan of the brain. 2. No evidence of an ischemic or hemorrhagic cerebral infarction or intracranial mass lesion. 3. No subdural, epidural, or intracerebral hematoma, hemorrhage or contusion. 4. Normal calvarium without linear or depressed skull fractures. 5. Normal paranasal sinuses. Electronically Signed: Lamin Whiteside MD at 22:05 EDT ,
[2022-02-17 21:53] LABS: Absolute Lymphocyte Count 1.24 X10^3/uL (0.83-4.51); Absolute Neutrophil Count 3.4 X10^3/uL (2.0-7.7); Basophil# 0.07 X10^3/uL; Basophil% 1.2 % (0-1); Eosinophil# 0.57 X10^3/uL; Eosinophils% 9.5 % (0-5); Hematocrit 30.4 % (40-54); Lymphocyte # 1.24 X10^3/ul (0.83-4.51); Lymphocyte % 20.6 % (19-41); Mean Corp Hgb Conc 29.6 g/dL (32-36); Mean Corpuscular Hgb 25.6 pg (27.0-32.0); Mean Corpuscular Volume 86.6 fL (80-94); Mean Platelet Vol. 10.3 fl (6.2-12.0); Monocyte# 0.79 X10^3/uL; Monocyte% 13.1 % (0-10); NRBC Flagged by Analyzer 0 % (0-5); Neutrophil # 3.35 X10^3/uL (2.7-7.7); Neutrophil % 55.4 % (47-70); Platelet Count 199 K/mm3 (150-450); RBC Distribution Width CV 18.1 % (11.6-14.6); RBC Distribution Width SD 56.6 fl (35.1-43.9); Red Blood Count 3.51 M/mm3 (4.6-6.2)
[2022-02-17 22:16] LABS: AST(SGOT) 17 U/L (15-37); Alanine Aminotransfer ALT/SGPT 18 U/L (16-61); Albumin, Serum 3.5 g/dL (3.2-5.0); Alkaline Phosphatase 80 U/L (45-117); Anion Gap 5 (5-15); BUN 9 mg/dL (7-18); BUN/Creat Ratio 9.4 RATIO (10-20); Calcium,Total 9.2 mg/dL (8.5-10.1); Chloride 106 mmol/L (98-107); Creatinine, Serum 0.95 mg/dL (0.70-1.30); EST Glomerular Filtration Rate 87 mL/min (>60); Est Glom Filt Rate - Afr Amer 105 mL/min (>60); Estimated Creatinine Clearance 81.18 ml/min; Globulin 3.5 g/dL (2.2-4.2); Glucose 124 mg/dL (74-106); Potassium 2.9 mmol/L (3.5-5.1); Sodium Level 142 mmol/L (136-145); Troponin-I HS 29 pg/mL (3.0-78.0)
[2022-02-17] MEDS: Morphine 4 MG/ML Syringe IV (22:28)
--- NOTE | 2022-02-17 22:31 | ED.RN ---
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
[2022-02-17 23:00] VITALS: BP 129/77; PULSE 118; RESP 14; O2SAT 97
[2022-02-17] MEDS: oxyCODONE 5 MG Tablet PO (23:04)
[2022-02-17] MEDS: Potassium Chloride Oral Tablet 20 MEQ 40 MEQ PO (23:04)
== END 2022-02-17 23:09 | disposition home or self-care (01) ==
PROVIDERS: Emergency Provider Student in an Organized Health Care Education/Training Program; PCP Family Medicine; Visit Provider Student in an Organized Health Care Education/Training Program
DX: R51.9 Headache, unspecified (principal); J44.9 Chronic obstructive pulmonary disease, unspecified; E11.9 Type 2 diabetes mellitus without complications; Z79.4 Long term (current) use of insulin; I25.10 Atherosclerotic heart disease of native coronary artery without angina pectoris; F12.90 Cannabis use, unspecified, uncomplicated; E87.6 Hypokalemia; G47.33 Obstructive sleep apnea (adult) (pediatric); E66.9 Obesity, unspecified; Z87.891 Personal history of nicotine dependence; Z95.5 Presence of coronary angioplasty implant and graft; Z86.73 Personal history of transient ischemic attack (TIA), and cerebral infarction without residual deficits; Z79.899 Other long term (current) drug therapy
CPT/HCPCS: 70450; 71045; 80053; 84484; 85025; 93005; 96374; 99283; A4216

== ENCOUNTER 2022-02-19 09:54 | Outpatient (CLI) | payer MEDICAID, SELFPAY ==
[2022-02-19 12:19] LABS: Absolute Lymphocyte Count 1.53 X10^3/uL (0.83-4.51); Absolute Neutrophil Count 5.7 X10^3/uL (2.0-7.7); Basophil# 0.12 X10^3/uL; Basophil% 1.4 % (0-1); Eosinophil# 0.71 X10^3/uL; Hematocrit 30.6 % (40-54); Hemoglobin 8.4 g/dL (13.0-16.5); Lymphocyte # 1.53 X10^3/ul (0.83-4.51); Lymphocyte % 17.2 % (19-41); Mean Corp Hgb Conc 27.5 g/dL (32-36); Mean Corpuscular Hgb 24.1 pg (27.0-32.0); Mean Corpuscular Volume 87.7 fL (80-94); Mean Platelet Vol. 10.5 fl (6.2-12.0); Monocyte# 0.76 X10^3/uL; Monocyte% 8.6 % (0-10); NRBC Flagged by Analyzer 0 % (0-5); Neutrophil # 5.71 X10^3/uL (2.7-7.7); Neutrophil % 64.3 % (47-70); Platelet Count 239 K/mm3 (150-450); RBC Distribution Width CV 18.5 % (11.6-14.6); Red Blood Count 3.49 M/mm3 (4.6-6.2); White Blood Count 8.9 K/mm3 (4.4-11.0)
[2022-02-19 13:14] LABS: Ferritin 19 ng/mL (26-388); Iron 26 ug/dL (65-175); Iron Binding Capacity,Total 402 ug/dL (250-450)
== END 2022-02-19 23:59 | disposition home or self-care (01) ==
LOC: MFPLAB 09:55
PROVIDERS: PCP Family Medicine; Referring Provider Family Medicine; Visit Provider Family Medicine
DX: K92.2 Gastrointestinal hemorrhage, unspecified (principal)
CPT/HCPCS: 36415; 82728; 83540; 83550; 85025

== ENCOUNTER 2022-03-05 20:30 | Inpatient (IN) | payer MEDICAID, SELFPAY ==
[2022-03-05 20:31] VITALS: BP 118/67; PULSE 106; RESP 18; TEMP 36.6; O2SAT 94; BMI 26.3
--- NOTE | 2022-03-05 21:38 | EKG12_ITS ---
Test Reason : GEN ILL Blood Pressure : / mmHG Vent. Rate : 099 BPM Atrial Rate : 099 BPM P-R Int : 178 ms QRS Dur : 092 ms QT Int : 400 ms P-R-T Axes : 068 067 094 degrees QTc Int : 513 ms Sinus rhythm with Premature atrial complexes ST & T wave abnormality, consider anterior ischemia Prolonged QT Abnormal ECG Confirmed by COLT LOMELI, TAMMY ([id number]), website/blog editor EDITH MENARD ([id number]) on 03/12/2022 10:54:11 AM Referred By: JONES Confirmed By:TAMMY GREGORY MD
--- NOTE | 2022-03-05 21:58 | ED.VIS.GI ---
HPI HPI - GI History of Present Illness Chief Complaint: GI Bleed Informant: patient and spouse/S.O. Narrative Narrative: Patient is a 56-year-old male presenting to the ER for evaluation of abdominal discomfort and concern for GI bleed. Apparently patient has a history of bleeding stomach ulcers. Patient is complain of lower abdominal pain. Patient is quite somnolent and poor historian. Looks like he was admitted from 02/06-02/09 for acute on chronic anemia secondary to GI bleed. He was transfused blood products at that time. Also found of a stable occlusion of the right femoral artery with reconstitution of the popliteal artery. He had a colonoscopy showed hemorrhoids and EGD which showed reflux esophagitis and nonbleeding gastric ulcers with no stigmata of recent bleeding and multiple oozing duodenal ulcers with visible vessels. Patient states he is at [place] abdominal pain which is brought him in today. He states he had maroon stool. Denies any chest pain or difficulty breathing. Cannot tell me why he feels so sleepy. PFSH [facility] Medical History (HFpEF) heart failure with preserved ejection fraction Acute hypotension Acute repetitive seizure Atherosclerosis of coronary artery bypass graft without angina pectoris Atherosclerosis of coronary artery of [place] heart without angina pectoris Atrial fibrillation Chest wall contusion Chronic anticoagulation Chronic obstructive pulmonary disease CPAP (continuous positive airway pressure) dependence Diabetes mellitus Essential hypertension Fall from slip, trip, or stumble Fracture of rib Hyperlipidemia Hypertension Leg swelling Lower extremity edema Major depression Metatarsal bone fracture Myocardial infarct Nicotine abuse KENNETH and COPD overlap syndrome PAD (peripheral artery disease) Paroxysmal atrial fibrillation Rectal bleeding Secondary pulmonary arterial hypertension Sleep apnea Smoking greater than 40 pack years Stroke/cerebrovascular accident Suicidal ideation Syncope Typical atrial flutter Home Medications gabapentin 1,200 mg PO TIDCM 12/07/15 [History Last Taken 02/06/22] albuterol sulfate 1 dose IH Q4H PRN PRN 11/09/19 [History Last Taken 02/06/22] albuterol sulfate 2 puff INHALATION Q6H PRN PRN 11/09/19 [History Last Taken 02/05/22] nitroglycerin 0.4 mg SUBLINGUAL PRN PRN 11/09/19 [History Last Taken 02/06/22] aspirin 81 mg tablet,delayed release 81 mg PO DAILY 05/24/20 [History Last Taken 02/06/22] insulin glargine 10 units SC BREAKFAST 12/18/20 [History Last Taken 02/06/22] tamsulosin 0.4 mg PO DAILY@1730 12/18/20 [History Last Taken 02/05/22] isosorbide mononitrate 120 mg tablet,extended release 24 hr 120 mg PO DAILY #90 tab 01/29/21 [Rx Last Taken 02/06/22] sotalol 120 mg tablet 120 mg PO BID #180 tab 01/29/21 [Rx Last Taken 02/06/22] levetiracetam [Keppra] 500 mg PO BID #60 tab 04/19/21 [Rx Last Taken 02/06/22] budesonide-formoterol HFA 160 mcg-4.5 mcg/actuation aerosol inhaler 2 puff INHALATION BID #10.2 g 05/30/21 [Rx Last Taken 02/06/22] duloxetine 60 mg capsule,delayed release 60 mg PO QPM #30 cap 09/30/21 [Rx Last Taken 02/05/22] promethazine 25 mg PO Q6H PRN #20 tab 12/17/21 [Rx Last Taken 02/06/22] atorvastatin 80 mg tablet 80 mg PO QHS #90 tab 01/17/22 [Rx Last Taken 02/05/22] clopidogrel 75 mg tablet 75 mg PO DAILY #90 tab 01/17/22 [Rx Last Taken 02/06/22] ezetimibe 10 mg tablet 10 mg PO DAILY #90 tab 01/17/22 [Rx Last Taken 02/06/22] lisinopril 10 mg tablet 10 mg PO DAILY #90 tab 01/17/22 [Rx Last Taken 02/06/22] metoprolol succinate 100 mg tablet,extended release 24 hr 100 mg PO DAILY #90 tab 01/17/22 [Rx Last Taken 02/06/22] aripiprazole 2 mg PO QHS 02/06/22 [History Last Taken 02/05/22] metformin 1,000 mg PO BID 02/06/22 [History Last Taken 02/06/22] pantoprazole [Protonix] 40 mg PO BID #60 tab 02/09/22 [Rx Last Taken Unknown] sucralfate [Carafate] 1 g PO Q6H #120 tab 02/09/22 [Rx Last Taken Unknown] duloxetine 60 mg PO QAM 03/05/22 [History Last Taken Unknown] furosemide 20 mg PO DAILY 03/05/22 [History Last Taken Unknown] tramadol 50 mg PO Q6H PRN 03/05/22 [History Last Taken Unknown] Allergy/AdvReac Type Severity Reaction Status Date / Time seasonal Allergy SOB Uncoded 03/05/22 20:33 Family History Father CAD (coronary artery disease) COPD (chronic obstructive pulmonary disease) CHF (congestive heart failure) CVA (cerebral vascular accident) Mother COPD (chronic obstructive pulmonary disease) Other Neuropathy Surgical History H/O coronary artery bypass surgery (10/2005) History of coronary artery stent placement (01/05/14) History of left heart catheterization (12/20/20) History of loop recorder (2015) History of open reduction and internal fixation (ORIF) procedure Social History household members: significant other and other housing: house number of children: 2 Smoking Status: Current some day smoker tobacco type: cigarettes Electronic Cigarette Use: with nicotine second hand exposure: No alcohol intake: current alcohol intake frequency: 3 or more drinks per day Alcohol type: wine substance use type: marijuana caffeine: Yes Type: coffee what type of physical activity do you participate in: walking frequency: daily duration: < 15 minutes/day seatbelt use: always do you feel safe at home: Yes ROS ROS ED Review of Systems ROS Unobtainable: due to encephalopathy Gastrointestinal Gastrointestinal: Reports abdominal pain EXAM Physical Exam Const Vital Signs: 03/05/22 20:31 03/05/22 22:27 03/05/22 23:16 Temperature 98 F 97.2 F L Temperature Source Temporal Temporal Pulse Rate 106 H 97 104 H Respiratory Rate 18 15 15 Blood Pressure 118/67 130/62 H 114/58 L Blood Pressure Mean 84 84 76 Pulse Ox 94 97 96 Oxygen Delivery Method Room Air Nasal Cannula Nasal Cannula Oxygen Flow Rate (L/min) 4 4 03/05/22 23:42 Temperature Temperature Source Pulse Rate 107 H Respiratory Rate 20 H Blood Pressure 112/56 L Blood Pressure Mean 74 Pulse Ox 95 Oxygen Delivery Method Nasal Cannula Oxygen Flow Rate (L/min) 4 Positive well nourished and well developed General Appearance ED: well developed and NAD; Negative for pallor HEENT Reports moist mucous membranes normocephalic and atraumatic Eyes PERRL and EOMs intact bilaterally Neck supple and no JVD Resp normal respiratory effort and clear to auscultation bilaterally Auscultation: Negative for rhonchi or wheezes Cardio regular rate, regular rhythm and no murmurs GI non-distended Auscultation: normoactive bowel sounds Palpation: soft and tender suprapubic Extremity full ROM Neuro moves all extremities Sensorium / Orientation: alert and orientation impaired Motor Exam: general weakness Psych mental status grossly normal Skin General Skin Exam: Negative for jaundice or pallor Lesions: no lesions Rashes: no rashes MDM MDM MDM Narrative Medical decision making narrative: Patient is evaluated for generalized weakness. Fianc? is able to provide more information. Patient had increased weakness for the past 4 days. He has been more confused. Patient is supposed be on 4 to 5 L of oxygen and CPAP at night. He has a history of GI bleeding however he has brown stool on exam currently. Patient's hemoglobin is stable at 8.9. His white blood cell count is normal. Ammonia is mildly elevated at 43. I am not sure if this explains his degree of encephalopathy however. CT the brain does not show an acute process. Patient does have a significant lactic acidosis of 5.8. The exact source of this is not clear. Patient was placed on 2 L of oxygen in the ER until we found out he is supposed to be in a higher level and that was increased. CTA of the chest abdomen pelvis added on to rule out dissection given his lactic acidosis, altered mental status and abnormal EKG. This did not show any acute dissection but did show groundglass and solid opacities the lung bases, right greater than left, concerning for infection. He has small right pleural effusion. This could explain his lactic acidosis and encephalopathy. He will be covered with broad-spectrum antibiotics as well as aspiration given that he does have a history of significant alcohol use. I did add on alcohol level. He is given potassium replacement in the ER. He will be admitted for further treatment and monitoring. Patient remains hemodynamically stable in the emergency room. While patient does meet criteria f for severe sepsis with the source of infection, pneumonia,, tachycardia and a respiratory rate of 20. He also has a history of heart failure. He is given 1.5 L of fluid however hospitalist will recheck his lactate and determine if he needs further fluids to complete the 30 cc per fluid bolus. I also question of his hypoxia could be causing some of his lactic acidosis. Lab Data Attestation: I reviewed the patient's lab results. Labs: Laboratory Results - last 24 hr 03/05/22 03/05/22 03/05/22 21:45 21:50 21:50 WBC 9.3 RBC 3.72 L Hgb 8.9 L Hct 30.9 L MCV 83.1 MCH 23.9 L MCHC 28.8 L RDW Std Deviation 53.9 H RDW Coeff of Arleen 18.0 H Plt Count 371 MPV 10.1 Immature Gran % (Auto) 0.300 Neut % (Auto) 72.4 H Lymph % (Auto) 13.7 L [place] % (Auto) 10.1 H Eos % (Auto) 2.5 Baso % (Auto) 1.0 Absolute Neuts (auto) 6.7 Absolute Lymphs (auto) 1.28 Nucleated RBC % 0 Sodium Potassium Chloride Carbon Dioxide Anion Gap BUN Creatinine Estim Creat Clear Calc Est GFR (MDRD) Af Amer Est GFR (MDRD) Non-Af BUN/Creatinine Ratio Glucose Lactic Acid Calcium Total Bilirubin AST ALT Alkaline Phosphatase Ammonia 43.0 H Troponin I High Sens Total Protein Albumin Globulin Albumin/Globulin Ratio Lipase Urine Color Urine Clarity Urine pH Ur Specific [place] Urine Protein Urine Glucose (UA) Urine Ketones Urine Occult Blood Urine Nitrite Urine Bilirubin Urine Urobilinogen Ur Leukocyte Esterase Urine RBC Urine WBC Ur Squamous Epith Cells Urine Bacteria Hyaline Casts Urine Mucus POC Glucose 106 03/05/22 03/05/22 03/05/22 21:50 21:50 22:23 WBC RBC Hgb Hct MCV MCH MCHC RDW Std Deviation RDW Coeff of Arleen Plt Count MPV Immature Gran % (Auto) Neut % (Auto) Lymph % (Auto) [place] % (Auto) Eos % (Auto) Baso % (Auto) Absolute Neuts (auto) Absolute Lymphs (auto) Nucleated RBC % Sodium 140 Potassium 2.5 L* Chloride 99 Carbon Dioxide 32.0 Anion Gap 9 BUN 9 Creatinine 0.91 Estim Creat Clear Calc 84.74 Est GFR (MDRD) Af Amer 111 Est GFR (MDRD) Non-Af 92 BUN/Creatinine Ratio 9.9 L Glucose 119 H Lactic Acid 5.8 H* Calcium 9.9 Total Bilirubin 0.30 AST 12 L ALT 16 Alkaline Phosphatase 77 Ammonia Troponin I High Sens 32 Total Protein 6.6 Albumin 2.9 L Globulin 3.7 Albumin/Globulin Ratio 0.8 L Lipase 107 Urine Color Yellow Urine Clarity Clear Urine pH 6.0 Ur Specific [place] 1.010 Urine Protein Negative Urine Glucose (UA) Normal Urine Ketones Negative Urine Occult Blood Negative Urine Nitrite Negative Urine Bilirubin Negative Urine Urobilinogen Normal Ur Leukocyte Esterase 25 H Urine RBC 0 SEEN Urine WBC 0-5 SEEN Ur Squamous Epith Cells 0-5 SEEN Urine Bacteria 0 SEEN Hyaline Casts 0-5 SEEN Urine Mucus 0 SEEN POC Glucose ABG Data ABG results: ABG 03/05/22 21:58 Specimen Type CORY VBG pH 7.44 H VBG pO2 40 VBG HCO3 30 H VBG Total CO2 32 VBG O2 Sat (Calc) 76 H VBG Base Excess 6 H POC Mix VBG pCO2 Pt Tmp 44.5 O2 Delivery Device Cannula Liter Flow 3.0 Radiography Diagnostic Testing: Clinical Impression(s) from Imaging Studies Brain CT 03/05/22 22:33 Chest/Abdomen/Pelvis CTA 03/05/22 22:49 Rhythm Strip Rhythm Strip: Sinus Rhythm Rate: 99 Ectopy: None EKG Initial EKG: Attestation: I personally reviewed and interpreted this EKG as follows: Interpretation: Sinus Rhythm Comments: Normal sinus rhythm at a rate of 99 Normal axis Prolonged QTC at [address] depressions in V1 through V4 with no reciprocal changes ST depressions are much more pronounced compared to prior EKGs Discharge Plan Dx/Rx/DC Orders Clinical Impression: Encephalopathy acute, Bilateral pneumonia, Acidosis, lactic, Abnormal ECG Disposition Disposition: Acute Care [facility]
[2022-03-05 22:06] LABS: Blood Gas Specimen Type VEN; O2 Delivery Device Cannula; VBG BASE EXCESS 6 mmol/L (-1.0-3.5); VBG Bicarbonate 30 mmol/L (22-26); VBG PO2 40 mmHg (25-40); VBG SO2 76 % (50-70); VBG TCO2 32 mmol/L (23-33); VBG pCO2 44.5 mmHg (41-51); VBG pH 7.44 (7.32-7.42)
[2022-03-05 22:06] LABS: Absolute Lymphocyte Count 1.28 X10^3/uL (0.83-4.51); Absolute Neutrophil Count 6.7 X10^3/uL (2.0-7.7); Basophil# 0.09 X10^3/uL; Eosinophil# 0.23 X10^3/uL; Eosinophils% 2.5 % (0-5); Hematocrit 30.9 % (40-54); Hemoglobin 8.9 g/dL (13.0-16.5); Lymphocyte # 1.28 X10^3/ul (0.83-4.51); Lymphocyte % 13.7 % (19-41); Mean Corp Hgb Conc 28.8 g/dL (32-36); Mean Corpuscular Hgb 23.9 pg (27.0-32.0); Mean Corpuscular Volume 83.1 fL (80-94); Mean Platelet Vol. 10.1 fl (6.2-12.0); Monocyte# 0.94 X10^3/uL; Monocyte% 10.1 % (0-10); NRBC Flagged by Analyzer 0 % (0-5); Neutrophil # 6.74 X10^3/uL (2.7-7.7); Neutrophil % 72.4 % (47-70); Platelet Count 371 K/mm3 (150-450); RBC Distribution Width SD 53.9 fl (35.1-43.9); Red Blood Count 3.72 M/mm3 (4.6-6.2); White Blood Count 9.3 K/mm3 (4.4-11.0)
[2022-03-05 22:16] LABS: Bedside Glucose 106 mg/dL (74-106)
[2022-03-05 22:27] VITALS: BP 130/62; PULSE 97; RESP 15; O2SAT 97
[2022-03-05 22:30] LABS: ALB/GLOB Ratio 0.8 RATIO (0.9-2.4); AST(SGOT) 12 U/L (15-37); Alanine Aminotransfer ALT/SGPT 16 U/L (16-61); Albumin, Serum 2.9 g/dL (3.2-5.0); Alkaline Phosphatase 77 U/L (45-117); Anion Gap 9 (5-15); BUN 9 mg/dL (7-18); BUN/Creat Ratio 9.9 RATIO (10-20); Calcium,Total 9.9 mg/dL (8.5-10.1); Chloride 99 mmol/L (98-107); Creatinine, Serum 0.91 mg/dL (0.70-1.30); EST Glomerular Filtration Rate 92 mL/min (>60); Est Glom Filt Rate - Afr Amer 111 mL/min (>60); Estimated Creatinine Clearance 84.74 ml/min; Globulin 3.7 g/dL (2.2-4.2); Glucose 119 mg/dL (74-106); Lipase 107 U/L (73-393); Potassium 2.5 mmol/L (3.5-5.1); Protein, Total 6.6 g/dL (6.4-8.2); Sodium Level 140 mmol/L (136-145); Troponin-I HS 32 pg/mL (3.0-78.0)
[2022-03-05 22:31] LABS: Lactic Acid 5.8 mmol/L (0.4-1.9)
--- NOTE | 2022-03-05 22:33 | CT_ITS ---
STUDY: CT BRAIN WITHOUT CONTRAST REASON FOR EXAM: Male, 56 years old. ams RADIATION DOSAGE (If Supplied By Facility): CTDIvol = ( 44.99 ) mGy, DLP = ( 846.73 ) mGycm EXAM: CT brain without contrast HISTORY: ams TECHNIQUE: CT Head or Brain W/O Contrast Injection COMPARISON: CT brain 02/17/2022 LIMITATIONS: None. BRAIN: Chronic lacunar infarct in the left caudate head. VENTRICLES: No hydrocephalus. Bilateral periventricular hypoattenuation, nonspecific however likely represents chronic microvascular ischemic changes. EXTRA-AXIAL SPACES: No hemorrhages, fluid collections, or masses. CALVARIUM/SKULL BASE: Normal. FACE/SINUSES: Visualized portions normal. SOFT TISSUES: Normal. OTHER: None. CONCLUSION: No intracranial hemorrhage or acute territorial infarction. Electronically Signed: Rishabh Duran MD at 23:20 EDT , CT/Brain/Head without Contrast
[2022-03-05 22:35] LABS: Bacteria 0 SEEN /hpf (None Seen); Mucous, Urine 0 SEEN /hpf (<or=2+); Red Blood Cells-Urine 0 SEEN /hpf (0-5)
[2022-03-05 22:37] LABS: Color, Urine Yellow (Yellow); Glucose, Dipstick Normal (Normal); Ketone-Dipstick Negative (Negative); Leukocyte Esterase-Dipstick 25 /ul (Negative); Nitrite-Dipstick Negative (Negative); Occult Blood-Urine Negative /ul (Negative); Protein-Dipstick Negative (Negative); Urine Bilirubin Dipstick Negative (Negative); Urine Clarity Clear (Clear); Urine Urobilinogen Normal (Normal)
[2022-03-05 22:42] LABS: Squamous Epithelial Cells - UA 0-5 SEEN /hpf (0-5); White Blood Cells 0-5 SEEN /hpf (0-5)
[2022-03-05 22:43] LABS: Hyaline Cast 0-5 SEEN /lpf (0-5)
--- NOTE | 2022-03-05 22:49 | CT_ITS ---
EXAM: CT angiogram chest, abdomen and pelvis with IV contrast. HISTORY: Abdominal pain, concern for dissection TECHNIQUE: CTA Chest and CTA Abdomen and Pelvis W/ Contrast Injection (and W/O Contrast Images if performed) COMPARISON: CT abdomen pelvis 02/06/2022. LIMITATIONS: None. Aorta: No aortic aneurysm or dissection. Mild to moderate atherosclerotic calcifications. Multifocal moderate to severe stenoses in the bilateral iliac and femoral arteries. CHEST: LUNGS: Groundglass and consolidative opacities at the lung bases, right greater than left.. PULMONARY VESSELS: Normal. PLEURA: Small right and trace left pleural effusions. MEDIASTINUM: Mildly enlarged mediastinal lymph nodes. Postsurgical changes in the mediastinum consistent with prior CABG.. ABDOMEN/PELVIS: LIVER: Normal. GALLBLADDER/BILE DUCTS: Normal. PANCREAS: Normal. SPLEEN: Normal. ADRENAL GLANDS: Right adrenal mass measuring 3.8 x 3.6 x 2.3 cm, similar compared to the prior. KIDNEYS/URETERS/BLADDER: Mild urinary bladder wall thickening. The urinary bladder is partially decompressed, limiting evaluation. 5.1 cm inferior pole left renal cystic structure again seen. No hydroureteronephrosis or radiopaque nephrolithiasis. RETROPERITONEUM: Borderline enlarged retroperitoneal lymph nodes.. BOWEL/MESENTERY: Moderate increased stool throughout the colon.. APPENDIX: Identified and normal. PERITONEUM: Normal. REPRODUCTIVE ORGANS: Normal. BONES/SOFT TISSUES: Multilevel degenerative changes throughout the visualized spine. No acute osseous abnormality. OTHER: None. CONCLUSION: 1. No aortic aneurysm or dissection. Atherosclerotic changes as above. 2. Groundglass and consolidative opacities at the lung bases, right greater than left, concerning for infection. 3. Small right pleural effusion. 4. Moderate increased stool throughout the colon. 5. Mild urinary bladder wall thickening, may be due to decompression or cystitis. 6. Right adrenal mass measuring 3.8 cm, similar compared to the prior. 7. Additional chronic findings as above. Electronically Signed: Rishabh Duran MD at 23:39 EDT , CT/CTA Chst, Abd, Pel W and/or WO
[2022-03-05] MEDS: 0.9% Normal Saline 1,000 ML 125 ML IV (23:15)
[2022-03-05 23:16] VITALS: BP 114/58; PULSE 104; RESP 15; TEMP 36.2; O2SAT 96
[2022-03-05 23:42] VITALS: BP 112/56; PULSE 107; RESP 20; O2SAT 95
--- NOTE | 2022-03-05 23:56 | HP.PCM_ITS ---
Documented by User: DIANA Lira 03/06/22 00:46 HPI - General General Date of Admission: 03/05/22 Date of Service: 03/05/22 Chief Complaint: Abdominal pain HPI Narrative SAIRA STEVENS, is a 56 M who presents with complaints of abdominal discomfort and current started for GI bleed as patient has had these in the past and was most recently admitted in January. However upon examination patient is lethargic. CTA of chest abdomen and pelvis demonstrates groundglass and consolidative opacities in the lung bases right greater than left, right pleural effusion, moderate stool throughout the colon, mild urinary bladder wall thickening and right adrenal mass measuring 3.8 similar to prior study. Patient's reports that he became lethargic at home yesterday and has only gotten worse which is why she brought him to the ER. Patient also reports that he drinks 1 pint of wild [place] wine daily. Patient continues to smoke and patient's states that he is switching from cigarettes to vaping. Patient has an extensive medical history that includes hypertension, hyperlipidemia, diabetes mellitus type 2, COPD and obstructive sleep apnea, paroxysmal A. fib, heart failure with preserved EF, history of CABG and stent placement. [facility] Medical History (HFpEF) heart failure with preserved ejection fraction Acute hypotension Acute repetitive seizure Atherosclerosis of coronary artery bypass graft without angina pectoris Atherosclerosis of coronary artery of [place] heart without angina pectoris Atrial fibrillation Chest wall contusion Chronic anticoagulation Chronic obstructive pulmonary disease CPAP (continuous positive airway pressure) dependence Diabetes mellitus Essential hypertension Fall from slip, trip, or stumble Fracture of rib Hyperlipidemia Hypertension Leg swelling Lower extremity edema Major depression Metatarsal bone fracture Myocardial infarct Nicotine abuse KENNETH and COPD overlap syndrome PAD (peripheral artery disease) Paroxysmal atrial fibrillation Rectal bleeding Secondary pulmonary arterial hypertension Sleep apnea Smoking greater than 40 pack years Stroke/cerebrovascular accident Suicidal ideation Syncope Typical atrial flutter Home Medications gabapentin 1,200 mg PO TIDCM 12/07/15 [History Last Taken 02/06/22] albuterol sulfate 1 dose IH Q4H PRN PRN 11/09/19 [History Last Taken 02/06/22] albuterol sulfate 2 puff INHALATION Q6H PRN PRN 11/09/19 [History Last Taken 02/05/22] nitroglycerin 0.4 mg SUBLINGUAL PRN PRN 11/09/19 [History Last Taken 02/06/22] aspirin 81 mg tablet,delayed release 81 mg PO DAILY 05/24/20 [History Last Taken 02/06/22] insulin glargine 10 units SC BREAKFAST 12/18/20 [History Last Taken 02/06/22] tamsulosin 0.4 mg PO DAILY@1730 12/18/20 [History Last Taken 02/05/22] isosorbide mononitrate 120 mg tablet,extended release 24 hr 120 mg PO DAILY #90 tab 01/29/21 [Rx Last Taken 02/06/22] sotalol 120 mg tablet 120 mg PO BID #180 tab 01/29/21 [Rx Last Taken 02/06/22] levetiracetam [Keppra] 500 mg PO BID #60 tab 04/19/21 [Rx Last Taken 02/06/22] budesonide-formoterol HFA 160 mcg-4.5 mcg/actuation aerosol inhaler 2 puff INHALATION BID #10.2 g 05/30/21 [Rx Last Taken 02/06/22] duloxetine 60 mg capsule,delayed release 60 mg PO QPM #30 cap 09/30/21 [Rx Last Taken 02/05/22] promethazine 25 mg PO Q6H PRN #20 tab 12/17/21 [Rx Last Taken 02/06/22] atorvastatin 80 mg tablet 80 mg PO QHS #90 tab 01/17/22 [Rx Last Taken 02/05/22] clopidogrel 75 mg tablet 75 mg PO DAILY #90 tab 01/17/22 [Rx Last Taken 02/06/22] ezetimibe 10 mg tablet 10 mg PO DAILY #90 tab 01/17/22 [Rx Last Taken 02/06/22] lisinopril 10 mg tablet 10 mg PO DAILY #90 tab 01/17/22 [Rx Last Taken 02/06/22] metoprolol succinate 100 mg tablet,extended release 24 hr 100 mg PO DAILY #90 tab 01/17/22 [Rx Last Taken 02/06/22] aripiprazole 2 mg PO QHS 02/06/22 [History Last Taken 02/05/22] metformin 1,000 mg PO BID 02/06/22 [History Last Taken 02/06/22] pantoprazole [Protonix] 40 mg PO BID #60 tab 02/09/22 [Rx Last Taken Unknown] sucralfate [Carafate] 1 g PO Q6H #120 tab 02/09/22 [Rx Last Taken Unknown] duloxetine 60 mg PO QAM 03/05/22 [History Last Taken Unknown] furosemide 20 mg PO DAILY 03/05/22 [History Last Taken Unknown] tramadol 50 mg PO Q6H PRN 03/05/22 [History Last Taken Unknown] Allergy/AdvReac Type Severity Reaction Status Date / Time seasonal Allergy SOB Uncoded 03/05/22 20:33 Family History Father CAD (coronary artery disease) COPD (chronic obstructive pulmonary disease) CHF (congestive heart failure) CVA (cerebral vascular accident) Mother COPD (chronic obstructive pulmonary disease) Other Neuropathy Surgical History H/O coronary artery bypass surgery (10/2005) History of coronary artery stent placement (01/05/14) History of left heart catheterization (12/20/20) History of loop recorder (2016) History of open reduction and internal fixation (ORIF) procedure Social History (Updated 03/06/22 @ 00:24 by Cheri Larsen NP-C) household members: significant other and other housing: house number of children: 2 Smoking Status: Current some day smoker tobacco type: cigarettes Electronic Cigarette Use: with nicotine second hand exposure: No alcohol intake: current alcohol intake frequency: 3 or more drinks per day Alcohol type: wine substance use type: marijuana caffeine: Yes Type: coffee what type of physical activity do you participate in: walking frequency: daily duration: < 15 minutes/day seatbelt use: always do you feel safe at home: Yes ROS Constitutional Constitutional: Reports chills and lethargy; Denies anorexia or fatigue Cardiovascular Cardiovascular: Denies chest pain, edema, palpitations or syncope Respiratory/Chest Respiratory/Chest: Reports shortness of breath with exertion; Denies cough or wheezing Gastrointestinal Gastrointestinal: Reports abdominal pain; Denies constipation, diarrhea, nausea or vomiting Genitourinary Genitourinary: Denies dysuria Musculoskeletal Musculoskeletal: Denies back pain, extremity pain, joint pain or joint stiffness Integumentary Integumentary: Denies dry skin Neurologic Neurologic: Reports weakness; Denies abnormal gait, abnormal speech, confusion, dizziness or focal weakness Psychiatric Psychiatric: Denies anxiety or depression Endocrine Endocrinology: Denies change in body appearance Hematologic/Lymphatic Hematologic/Lymphatic: Reports anemia Vital Signs Vital Signs Vital Signs: 03/05/22 20:31 03/05/22 22:27 03/05/22 23:16 Temperature 98 F 97.2 F L Temperature Source Temporal Temporal Pulse Rate 106 H 97 104 H Respiratory Rate 18 15 15 Blood Pressure 118/67 130/62 H 114/58 L Blood Pressure Mean 84 84 76 Pulse Ox 94 97 96 Oxygen Delivery Method Room Air Nasal Cannula Nasal Cannula Oxygen Flow Rate (L/min) 4 4 03/05/22 23:42 Temperature Temperature Source Pulse Rate 107 H Respiratory Rate 20 H Blood Pressure 112/56 L Blood Pressure Mean 74 Pulse Ox 95 Oxygen Delivery Method Nasal Cannula Oxygen Flow Rate (L/min) 4 Weight Weight: 168 lb Body Mass Index (BMI) 26.3 Physical Exam Const no apparent distress General Appearance: disheveled Orientation / Consciousness: lethargic HEENT normocephalic and head/scalp atraumatic Eyes conjunctivae normal and no scleral icterus Neck no lymphadenopathy and supple General: trachea midline Resp normal respiratory effort Effort and Inspection: tachypneic Auscultation: wheezes expiratory wheezes and throughout Cardio regular rate, regular rhythm, S1 normal heart sound, S2 normal heart sound and peripheral pulses 2+ throughout GI normal to inspection, nondistended, normoactive bowel sounds and soft to palpation Palpation: tender other (general) Extremity normal capillary refill and no clubbing, cyanosis or edema Skin General Skin Exam: no breakdown and turgor normal Lesions: no lesions Rashes: no rashes Neuro no focal motor deficits and no sensory deficits noted Motor Exam: general weakness Psych Appearance: unkempt and disheveled Results Lab / Micro Data Result Diagrams: 03/05/22 21:50 03/05/22 21:50 Labs: Laboratory Results - last 24 hr 03/05/22 21:45: POC Glucose 106 03/05/22 21:50: Ammonia 43.0 H 03/05/22 21:50: WBC 9.3, RBC 3.72 L, Hgb 8.9 L, Hct 30.9 L, MCV 83.1, MCH 23.9 L , MCHC 28.8 L, RDW Std Deviation 53.9 H, RDW Coeff of Arleen 18.0 H, Plt Count 371, MPV 10.1, Immature Gran % (Auto) 0.300, Neut % (Auto) 72.4 H, Lymph % (Auto) 13.7 L, [place] % (Auto) 10.1 H, Eos % (Auto) 2.5, Baso % (Auto) 1.0, Absolute Neuts (auto) 6.7, Absolute Lymphs (auto) 1.28, Nucleated RBC % 0 03/05/22 21:50: Sodium 140, Potassium 2.5 L*, Chloride 99, Carbon Dioxide 32.0, Anion Gap 9, BUN 9, Creatinine 0.91, Estim Creat Clear Calc 84.74, Est GFR (MDRD) Af Amer 111, Est GFR (MDRD) Non-Af 92, BUN/Creatinine Ratio 9.9 L, Glucose 119 H, Calcium 9.9, Total Bilirubin 0.30, AST 12 L, ALT 16, Alkaline Phosphatase 77, Troponin I High Sens 32, Total Protein 6.6, Albumin 2.9 L, Globulin 3.7, Albumin/Globulin Ratio 0.8 L, Lipase 107 03/05/22 21:50: Lactic Acid 5.8 H* 03/05/22 22:23: Urine Color Yellow, Urine Clarity Clear, Urine pH 6.0, Ur Specific [place] 1.010, Urine Protein Negative, Urine Glucose (UA) Normal, Urine Ketones Negative, Urine Occult Blood Negative, Urine Nitrite Negative, Urine Bilirubin Negative, Urine Urobilinogen Normal, Ur Leukocyte Esterase 25 H, Urine RBC 0 SEEN, Urine WBC 0-5 SEEN, Ur Squamous Epith Cells 0-5 SEEN, Urine Bacteria 0 SEEN, Hyaline Casts 0-5 SEEN, Urine Mucus 0 SEEN Micro: Microbiology 03/05/22 21:40 Stool Stool Occult Blood (JEANETTE) - Final ABG Data ABG results: ABG 03/05/22 21:58 Specimen Type CORY VBG pH 7.44 H VBG pO2 40 VBG HCO3 30 H VBG Total CO2 32 VBG O2 Sat (Calc) 76 H VBG Base Excess 6 H POC Mix VBG pCO2 Pt Tmp 44.5 O2 Delivery Device Cannula Liter Flow 3.[address] 03/05/22 22:33 Chest/Abdomen/Pelvis CTA 04/06/22 22:49 Assessment & Plan Assessment/Plan (1) Encephalopathy acute: (2) Bilateral pneumonia: QUALIFIERS: Lung location: lower lobe of lung Pneumonia type: due to unspecified organism Qualified Code(s): J18.9 - Pneumonia, unspecified organism (3) Acidosis, lactic: PLAN: 1. Acute encephalopathy secondary to bilateral pneumonia, possible gram -/gram + with hypoxia -Admit to PCU -Unasyn and azithromycin given in the ER, will initiate patient on Vanco and Zosyn -Sputum culture, Covid and respiratory panel along with urine Legionella and strep pneumonia ordered -Encourage incentive spirometry -MRSA PCR ordered -CBC, CMP, ammonia level ordered for a.m. -Phosphorus and magnesium ordered stat -Oxygen per protocol patient currently on 4 to 5 L nasal cannula oxygen up baseline -Blood cultures pending 2. Abnormal EKG -Normal sinus with a rate of 99 -EKG demonstrates ST depressions in V1 through V4 with no reciprocal changes, more pronounced when compared to prior EKGs -Prolonged QTC at 513 -We will trend cardiac enzymes 3. Lactic acidosis -Patient's lactic acid 5.8 on arrival however patient drinks alcohol daily which may be contributing to elevated level -We will repeat per protocol -IV fluids given in ER for a total of 1500 mL 4. Hypokalemia -Potassium 2.5 upon initial evaluation -IV potassium and p.o. replacement ordered -we will get repeat level upon completion of IV replacement 5. Chronic alcohol use -CIWA first 24-hour medications ordered -Phenobarbital taper not initiated due to patient's lethargy -Blood alcohol level pending 6. Elevated ammonia -Lactulose 10 g rectal x1 -We will repeat lab in the morning 7. Diabetes mellitus type 2 -ACH S blood sugars with sliding scale insulin ordered -Continue home insulin glargine -We will hold Metformin at this time 8. Hypertension -Continue patient's home medication regimen including Lasix, isosorbide, lisinopril, metoprolol -Vital signs per protocol, currently stable 9. Recent GI bleed -Continue sucralfate and pantoprazole 10. Bipolar disorder -Continue Cymbalta Abilify 11. History of seizure disorder -Continue Keppra 12. hyperlipidemia -Continue Zetia and atorvastatin DVT prophylaxis-SCDs, due to recent GI bleed no pharmacological prophylaxis ordered at this time This patient was seen by Cheri Larsen NP-C under the supervision of Dr. Fowler. 35 minutes spent in clinical coordination of patient's plan of care. Documented by User: Dr. Trish Fowler MD 03/06/22 00:50 HPI - General General Date of Admission: 03/06/22 [facility] Medical History (HFpEF) heart failure with preserved ejection fraction Acute hypotension Acute repetitive seizure Atherosclerosis of coronary artery bypass graft without angina pectoris Atherosclerosis of coronary artery of [place] heart without angina pectoris Atrial fibrillation Chest wall contusion Chronic anticoagulation Chronic obstructive pulmonary disease CPAP (continuous positive airway pressure) dependence Diabetes mellitus Essential hypertension Fall from slip, trip, or stumble Fracture of rib Hyperlipidemia Hypertension Leg swelling Lower extremity edema Major depression Metatarsal bone fracture Myocardial infarct Nicotine abuse KENNETH and COPD overlap syndrome PAD (peripheral artery disease) Paroxysmal atrial fibrillation Rectal bleeding Secondary pulmonary arterial hypertension Sleep apnea Smoking greater than 40 pack years Stroke/cerebrovascular accident Suicidal ideation Syncope Typical atrial flutter Home Medications gabapentin 1,200 mg PO TIDCM 12/07/15 [History Last Taken 02/06/22] albuterol sulfate 1 dose IH Q4H PRN PRN 11/09/19 [History Last Taken 02/06/22] albuterol sulfate 2 puff INHALATION Q6H PRN PRN 11/09/19 [History Last Taken 02/05/22] nitroglycerin 0.4 mg SUBLINGUAL PRN PRN 11/09/19 [History Last Taken 02/06/22] aspirin 81 mg tablet,delayed release 81 mg PO DAILY 05/24/20 [History Last Taken 02/06/22] insulin glargine 10 units SC BREAKFAST 12/18/20 [History Last Taken 02/06/22] tamsulosin 0.4 mg PO DAILY@1730 12/18/20 [History Last Taken 02/05/22] isosorbide mononitrate 120 mg tablet,extended release 24 hr 120 mg PO DAILY #90 tab 01/29/21 [Rx Last Taken 02/06/22] sotalol 120 mg tablet 120 mg PO BID #180 tab 01/29/21 [Rx Last Taken 02/06/22] levetiracetam [Keppra] 500 mg PO BID #60 tab 04/19/21 [Rx Last Taken 02/06/22] budesonide-formoterol HFA 160 mcg-4.5 mcg/actuation aerosol inhaler 2 puff INHALATION BID #10.2 g 05/30/21 [Rx Last Taken 02/06/22] duloxetine 60 mg capsule,delayed release 60 mg PO QPM #30 cap 09/30/21 [Rx Last Taken 02/05/22] promethazine 25 mg PO Q6H PRN #20 tab 12/17/21 [Rx Last Taken 02/06/22] atorvastatin 80 mg tablet 80 mg PO QHS #90 tab 01/17/22 [Rx Last Taken 02/05/22] clopidogrel 75 mg tablet 75 mg PO DAILY #90 tab 01/17/22 [Rx Last Taken 0 02/06/22] ezetimibe 10 mg tablet 10 mg PO DAILY #90 tab 01/17/22 [Rx Last Taken 02/06/22] lisinopril 10 mg tablet 10 mg PO DAILY #90 tab 01/17/22 [Rx Last Taken 02/06/22] metoprolol succinate 100 mg tablet,extended release 24 hr 100 mg PO DAILY #90 tab 01/17/22 [Rx Last Taken 02/06/22] aripiprazole 2 mg PO QHS 02/06/22 [History Last Taken 02/05/22] metformin 1,000 mg PO BID 02/06/22 [History Last Taken 02/06/22] pantoprazole [Protonix] 40 mg PO BID #60 tab 02/09/22 [Rx Last Taken Unknown] sucralfate [Carafate] 1 g PO Q6H #120 tab 02/09/22 [Rx Last Taken Unknown] duloxetine 60 mg PO QAM 03/05/22 [History Last Taken Unknown] furosemide 20 mg PO DAILY 03/05/22 [History Last Taken Unknown] tramadol 50 mg PO Q6H PRN 03/05/22 [History Last Taken Unknown] Allergy/AdvReac Type Severity Reaction Status Date / Time seasonal Allergy SOB Uncoded 03/05/22 20:33 Family History Father CAD (coronary artery disease) COPD (chronic obstructive pulmonary disease) CHF (congestive heart failure) CVA (cerebral vascular accident) Mother COPD (chronic obstructive pulmonary disease) Other Neuropathy Surgical History H/O coronary artery bypass surgery (10/2005) History of coronary artery stent placement (01/05/14) History of left heart catheterization (12/20/20) History of loop recorder (2015) History of open reduction and internal fixation (ORIF) procedure Social History (Updated 03/06/22 @ 00:24 by Cheri Larsen NP-C) household members: significant other and other housing: house number of children: 2 Smoking Status: Current some day smoker tobacco type: cigarettes Electronic Cigarette Use: with nicotine second hand exposure: No alcohol intake: current alcohol intake frequency: 3 or more drinks per day Alcohol type: wine substance use type: marijuana caffeine: Yes Type: coffee what type of physical activity do you participate in: walking frequency: daily duration: < 15 minutes/day seatbelt use: always do you feel safe at home: Yes Results Lab / Micro Data Result Diagrams: 03/05/22 21:50 03/05/22 21:50
[2022-03-06] VITALS (23 sets, daily range): BP systolic 92–127; BP diastolic 50–75; PULSE 78–100; RESP 15–20; TEMP 36.3–36.9; O2SAT 91–100; BMI 27.0
[2022-03-06 00:38] LABS: Phosphorus 1.6 mg/dL (2.5-4.9)
[2022-03-06 00:43] LABS: Magnesium 0.9 mg/dL (1.6-2.6)
[2022-03-06 01:04] LABS: Troponin-I HS 27 pg/mL (3.0-78.0)
[2022-03-06 01:08] LABS: Alcohol, Blood (Medical)-Serum < 3.0 mg/dL
[2022-03-06] MEDS: Potassium Chloride 10mEq/100mL 10 MEQ/100 ML IV.SOLN. 100 MEQ IV BOLUS ×4 (01:16→04:50)
[2022-03-06] MEDS: 0.9% Normal Saline 1,000 ML 999 ML IV (01:17)
[2022-03-06 02:01] LABS: Reflex Lactate? Y
[2022-03-06 04:39] LABS: M R Staph aureus DNA By PCR Negative (Negative); Probe Check PASS; Specimen Processing Control PASS
--- NOTE | 2022-03-06 05:22 | PCM.RX.CS ---
Consult Pharmacy has been consulted to manage selected antiobiotic: Vancomycin Type of Consult: New start Suspected Infection: Pneumonia Labs: Sodium 140 mmol/L (136-145) 03/05/22 21:50 Potassium 2.5 mmol/L (3.5-5.1) L* 03/05/22 21:50 Chloride 99 mmol/L (98-107) 03/05/22 21:50 Carbon Dioxide 32.0 mmol/L (21.0-32.0) 03/05/22 21:50 Anion Gap 9 (5-15) 03/05/22 21:50 BUN 9 mg/dL (7-18) 03/05/22 21:50 Creatinine 0.91 mg/dL (0.70-1.30) 03/05/22 21:50 Est GFR (MDRD) Af Amer 111 mL/min (>60) 03/05/22 21:50 Est GFR (MDRD) Non-Af 92 mL/min (>60) 03/05/22 21:50 BUN/Creatinine Ratio 9.9 RATIO (10-20) L 03/05/22 21:50 Glucose 119 mg/dL (74-106) H 03/05/22 21:50 Microbiology: Microbiology 03/05/22 21:40 Stool Stool Occult Blood (JEANETTE) - Final Weight used for dosin.3 kg Estimated Creatinine Clearance: 84.7 Goal Trough: 15-20 mcg/mL Pharmacy Plan for Drug Dosing: Pharmacy Service will continue to monitor and adjust dosing as required. Medications Vancomycin HCl 1,250 mg/ (Sodium Chloride) 275 mls @ 167 mls/hr IV Q12H LYNDA Discontinued Medications Vancomycin HCl 2,000 mg/ (Sodium Chloride) 540 mls @ 250 mls/hr IV X1 ONE Stop: 03/06/22 04:09 Last Admin: 03/06/22 04:47 Dose: 250 mls/hr Documented by: Follow-Up Labs: Trough Vancomycin Labs to be done on [date and time ordered]: 03/07 @ [id number]
[2022-03-06 05:36] LABS: Troponin-I HS 34 pg/mL (3.0-78.0)
[2022-03-06 06:31] LABS: Bedside Glucose 111 mg/dL (74-106)
[2022-03-06] MEDS: Ipratropium/Albuterol Sulfate 3 ML AMPUL.NEB INHALATION ×4 (07:30→18:58)
--- NOTE | 2022-03-06 07:46 | CPS ---
Pt states he has one at home and doesn't like it and doesn't want to do it here
[2022-03-06 08:05] LABS: Absolute Neutrophil Count 7.7 X10^3/uL (2.0-7.7); Basophil# 0.07 X10^3/uL; Basophil% 0.7 % (0-1); Eosinophil# 0.24 X10^3/uL; Eosinophils% 2.3 % (0-5); Hemoglobin 7.5 g/dL (13.0-16.5); Lymphocyte % 13.6 % (19-41); Mean Corp Hgb Conc 27.8 g/dL (32-36); Mean Corpuscular Hgb 23.8 pg (27.0-32.0); Mean Corpuscular Volume 85.7 fL (80-94); Mean Platelet Vol. 9.9 fl (6.2-12.0); Monocyte# 0.86 X10^3/uL; Monocyte% 8.4 % (0-10); NRBC Flagged by Analyzer 0 % (0-5); Neutrophil # 7.67 X10^3/uL (2.7-7.7); Neutrophil % 74.6 % (47-70); Platelet Count 294 K/mm3 (150-450); RBC Distribution Width CV 18.2 % (11.6-14.6); RBC Distribution Width SD 56.5 fl (35.1-43.9); Red Blood Count 3.15 M/mm3 (4.6-6.2); White Blood Count 10.3 K/mm3 (4.4-11.0)
[2022-03-06 08:43] LABS: ALB/GLOB Ratio 0.8 RATIO (0.9-2.4); AST(SGOT) 21 U/L (15-37); Alanine Aminotransfer ALT/SGPT 15 U/L (16-61); Albumin, Serum 2.5 g/dL (3.2-5.0); Alkaline Phosphatase 69 U/L (45-117); Anion Gap 3 (5-15); BUN 9 mg/dL (7-18); Calcium,Total 7.9 mg/dL (8.5-10.1); Chloride 108 mmol/L (98-107); Creatinine, Serum 0.75 mg/dL (0.70-1.30); EST Glomerular Filtration Rate 114 mL/min (>60); Est Glom Filt Rate - Afr Amer 138 mL/min (>60); Estimated Creatinine Clearance 102.82 ml/min; Globulin 3.1 g/dL (2.2-4.2); Glucose 94 mg/dL (74-106); Potassium 3.2 mmol/L (3.5-5.1); Protein, Total 5.6 g/dL (6.4-8.2); Sodium Level 141 mmol/L (136-145)
[2022-03-06] MEDS: Magnesium Sulfate 4gm/100mL 4 GM/100 ML IV.SOLN. IV (08:43)
[2022-03-06 09:21] LABS: Bedside Glucose 97 mg/dL (74-106)
[2022-03-06] MEDS: Aspirin E.C. 81 MG Tablet PO (09:22)
[2022-03-06] MEDS: Gabapentin 600 MG Tablet 1200 MG PO ×3 (09:22→17:13)
[2022-03-06] MEDS: Folic Acid 1 MG Tablet PO (09:22)
[2022-03-06] MEDS: Pantoprazole Sodium 40 MG Tablet PO ×2 (09:22→21:39)
[2022-03-06] MEDS: DULoxetine Hcl 60 MG Capsule PO ×2 (09:23→21:48)
[2022-03-06] MEDS: Clopidogrel Bisulfate 75 MG Tablet PO (09:23)
[2022-03-06] MEDS: Sotalol Hydrochloride 80 MG Tablet 120 MG PO ×2 (09:23→21:40)
[2022-03-06] MEDS: Furosemide 20 MG Tablet PO (09:23)
[2022-03-06] MEDS: Metoprolol(XL)Succ 100 MG Tablet PO (09:25)
[2022-03-06] MEDS: Thiamine Hydrochloride 100 MG Tablet PO (09:25)
[2022-03-06] MEDS: levETIRAcetam 500 MG Tablet PO ×2 (09:26→21:40)
[2022-03-06] MEDS: traMADol 50 MG Tablet PO ×2 (09:50→20:17)
[2022-03-06] MEDS: Insulin Glargine-YFGN 100 UNIT/ML Pen 10 UNIT SC (10:50)
--- NOTE | 2022-03-06 12:04 | PCM.PN.HOSP ---
Documented by User: Alina Platt SUPERINTENDENT METERS, SUPERINTENDENT METERS-C 03/06/22 12:40 Subjective Subjective Patient seen and examined. Denies further blood in stool. Denies nausea, vomiting, abdominal pain. Denies shortness of breath. Denies fever, chills. Patient slightly drowsy however mental status significantly improved. Alert and oriented. Objective Data Objective Data Vital Signs: Vital Signs Temp Pulse Resp BP Pulse Ox 98.2 F 87 16 127/75 H 96 03/06/22 08:50 03/06/22 11:00 03/06/22 11:00 03/06/22 09:25 03/06/22 08:50 Oxygen Flow Rate (L/min) 3 Oxygen Delivery Method Nasal Cannula Weight: 172 lb 9.951 oz Body Mass Index (BMI) 27.0 Intake & Output: Intake and Output for Last 24 Hours 03/04/22 03/05/22 03/06/22 23:59 23:59 23:59 Intake Total 3203.83 / 3203.83 Balance 3203.83 / 3203.83 Lab / Micro Data Result Diagrams: 03/06/22 07:51 03/06/22 07:51 Labs: Laboratory Results - last 24 hr 03/05/22 21:45: POC Glucose 106 03/05/22 21:50: Ammonia 43.0 H 03/05/22 21:50: WBC 9.3, RBC 3.72 L, Hgb 8.9 L, Hct 30.9 L, MCV 83.1, MCH 23.9 L, MCHC 28.8 L, RDW Std Deviation 53.9 H, RDW Coeff of Arleen 18.0 H, Plt Count 371, MPV 10.1, Immature Gran % (Auto) 0.300, Neut % (Auto) 72.4 H, Lymph % (Auto) 13.7 L, [place] % (Auto) 10.1 H, Eos % (Auto) 2.5, Baso % (Auto) 1.0, Absolute Neuts (auto) 6.7, Absolute Lymphs (auto) 1.28, Nucleated RBC % 0 03/05/22 21:50: Sodium 140, Potassium 2.5 L*, Chloride 99, Carbon Dioxide 32.0, Anion Gap 9, BUN 9, Creatinine 0.91, Estim Creat Clear Calc 84.74, Est GFR (MDRD) Af Amer 111, Est GFR (MDRD) Non-Af 92, BUN/Creatinine Ratio 9.9 L, Glucose 119 H, Calcium 9.9, Total Bilirubin 0.30, AST 12 L, ALT 16, Alkaline Phosphatase 77, Troponin I High Sens 32, Total Protein 6.6, Albumin 2.9 L, Globulin 3.7, Albumin/Globulin Ratio 0.8 L, Lipase 107 03/05/22 21:50: Lactic Acid 5.8 H* 03/05/22 21:50: Magnesium 0.9 L* 03/05/22 21:50: Phosphorus 1.6 L 03/05/22 22:23: Urine Color Yellow, Urine Clarity Clear, Urine pH 6.0, Ur Specific [place] 1.010, Urine Protein Negative, Urine Glucose (UA) Normal, Urine Ketones Negative, Urine Occult Blood Negative, Urine Nitrite Negative, Urine Bilirubin Negative, Urine Urobilinogen Normal, Ur Leukocyte Esterase 25 H, Urine RBC 0 SEEN, Urine WBC 0-5 SEEN, Ur Squamous Epith Cells 0-5 SEEN, Urine Bacteria 0 SEEN, Hyaline Casts 0-5 SEEN, Urine Mucus 0 SEEN 03/06/22 00:40: Ethyl Alcohol < 3.0 03/06/22 00:40: Troponin I High Sens 27 03/06/22 00:57: Lactic Acid 2.0 03/06/22 02:40: MRSA (PCR) Negative 03/06/22 03:00: COVID-19 (ELPIDIO) Not Detected 03/06/22 03:56: Troponin I High Sens 34 03/06/22 06:18: POC Glucose 111 H 03/06/22 07:51: WBC 10.3, RBC 3.15 L, Hgb 7.5 L, Hct 27.0 L, MCV 85.7, MCH 23.8 L, MCHC 27.8 L, RDW Std Deviation 56.5 H, RDW Coeff of Arleen 18.2 H, Plt Count 294, MPV 9.9, Immature Gran % (Auto) 0.400, Neut % (Auto) 74.6 H, Lymph % (Auto) 13.6 L, [place] % (Auto) 8.4, Eos % (Auto) 2.3, Baso % (Auto) 0.7, Absolute Neuts (auto) 7.7, Absolute Lymphs (auto) 1.40, Nucleated RBC % 0 04/07/22 07:51: Sodium 141, Potassium 3.2 L, Chloride 108 H, Carbon Dioxide 30.0, Anion Gap 3 L, BUN 9, Creatinine 0.75, Estim Creat Clear Calc 102.82, Est GFR (MDRD) Af Amer 138, Est GFR (MDRD) Non-Af 114, BUN/Creatinine Ratio 12.0, Glucose 94, Calcium 7.9 L, Total Bilirubin 0.30, AST 21, ALT 15 L, Alkaline Phosphatase 69, Total Protein 5.6 L, Albumin 2.5 L, Globulin 3.1, Albumin/Globulin Ratio 0.8 L 03/06/22 07:51: Ammonia 45.0 H 03/06/22 09:12: POC Glucose 97 Micro: Microbiology 03/05/22 21:40 Stool Stool Occult Blood (JEANETTE) - Final ABG Data ABG results: ABG 03/05/22 21:58 Specimen Type CORY VBG pH 7.44 H VBG pO2 40 VBG HCO3 30 H VBG Total CO2 32 VBG O2 Sat (Calc) 76 H VBG Base Excess 6 H POC Mix VBG pCO2 Pt Tmp 44.5 O2 Delivery Device Cannula Liter Flow 3.0 Radiography Diagnostic Testing: Radiology Impression Brain CT 03/05/22 22:33 Chest/Abdomen/Pelvis CTA 03/05/22 22:49 Rhythm Strip Rhythm Strip: Sinus Rhythm Rate: 99 Ectopy: None Physical Exam Const alert, oriented x3 and no apparent distress Orientation / Consciousness: awake, oriented to person, oriented to place and oriented to time HEENT normocephalic and moist oral mucous membranes Eyes PERRL, EOMs intact bilaterally and conjunctivae normal Neck no lymphadenopathy Resp normal respiratory effort and clear to auscultation bilaterally Cardio regular rate, regular rhythm and no murmurs Peripheral Pulses: pulses 2+ throughout GI normal to inspection, nondistended, normoactive bowel sounds, non-tender and non-distended Extremity normal to inspection Skin no rashes or lesions noted Lesions: no lesions Rashes: no rashes Trauma: no lacerations or abrasions Neuro CN's II-XII intact bilaterally, no focal motor deficits, no sensory deficits noted and deep tendon reflexes 2+ bilaterally Psych mental status grossly normal and affect normal Assessment & Plan Assessment/Plan (1) Encephalopathy acute: PLAN: 1. Acute infectious/metabolic encephalopathy secondary to bilateral pneumonia/HCAP with lactic acidosis, electrolyte disturbances and hyperammonia-IV Vanco and IV Zosyn. Albuterol and DuoNeb aerosols. Sputum and blood cultures pending. Mental status improving. 2. Hypomagnesia/hypophosphatemia/hypokalemia-replace per protocol. Trend labs. 3. Hyperammonia-lactulose x1. Repeat ammonia level. 4. Abnormal EKG-similar to prior EKGs. Cardiac enzymes negative. 5. Recent GI bleed with duodenal ulcers-continue PPI, Carafate. Trend H&H. Recent endoscopy with treatment of duodenal ulcers. Stool for occult blood negative. Transfuse for hemoglobin less than 7. 6. Alcohol dependence- [facility] protocol. Encouraged cessation. 7. Incidental adrenal mass-noted on CT of abdomen. Outpatient follow-up at discharge. 8. PAD-continue aspirin, Plavix, statin. Stable occlusion right femoral artery with reconstitution of the popliteal artery with severe stenosis of the right common femoral artery as well with distal occlusion. 9. Chronic COPD with chronic hypoxic respiratory failure-continue supplemental oxygen to maintain O2 above 90%. As needed albuterol aerosols. 10. Chronic heart failure with preserved ejection fraction- Echocardiogram 08/2021 demonstrated an EF of 65%, stage III diastolic dysfunction. Continue home Lasix regimen 11. CAD with history of CABG and stents-continue aspirin, statin, Plavix, isosorbide, metoprolol 12. Paroxysmal atrial fibrillation-on aspirin, Plavix, metoprolol, sotalol. 13. Type 2 diabetes [id number] with sliding scale insulin. Continue home insulin regimen. 14. KENNETH-continue home CPAP regimen. 15. Hypertension-stable, continue current regimen. 16. Hyperlipidemia-continue statin, Zetia. 17. Restless leg syndrome-on Requip. 18. Tobacco dependence-encouraged cessation. 19. Depression/insomnia/bipolar disorder-continue duloxetine, trazodone. 20. BPH-continue Flomax. 21. Seizure history-on Keppra. DVT prophylaxis- SCDs This patient was seen by DIANA Lujan under the supervision of Dr. Stover. Time spent examining patient, reviewing data and subsequent management of care: 14 Minutes Documented by User: Dr. Fidel Stover MD 03/06/22 15:16 Subjective Subjective Patient admitted with mild abdominal discomfort, shortness of breath, and GI bleed. Patient recently admitted between 02/06 on for acute on chronic GI bleed secondary to gastric ulcer. He also has a stable occlusion of right femoral artery with reconstitution at the popliteal artery. In the morning his shortness of breath is improved. Denies any further bleeding from rectum. No vomiting or hematemesis. Abdominal pain/discomfort is improved and resolved Objective Data Lab / Micro Data Result Diagrams: 03/06/22 07:51 03/06/22 07:51 Physical Exam Narrative General: Awake, lethargic, oriented x4 HEENT: Atraumatic, PERRLA, EOMI, Normocephalic Oral: No Gingival or Mucosal Lesions/ Ulcerations Neck: Supple, No JVD, Negative Carotid Bruits Lungs: Air entry diminished in bilateral lung bases. Mild bibasilar crepitations more on left side. Cardiovascular: CABG scar. Sinus rhythm, PVCs, Normal S1, Normal S2, No murmurs. Peripheral pulses diminished left DP and PT Abdomen: Bowel Sounds Present, Soft, Non Tender, Non-Distended : No renal angle tenderness. No suprapubic tenderness. Extremities: No edema, Capillary Refill Less than 3 Seconds Skin: No rashes, No breakdown Musculoskeletal: No Tenderness to Palpation of Joints or Extremities. Muscle strength 4/5 at major joints. Neurological: Cranial nerves II-XII grossly intact, DTR 2+/4 and Symmetrical, Neuro grossly intact Psych/Mental Status: Flat affect. Assessment & Plan Assessment/Plan (1) Encephalopathy acute: (2) Bilateral pneumonia: QUALIFIERS: Pneumonia type: due to unspecified organism Lung location: lower lobe of lung Qualified Code(s): J18.9 - Pneumonia, unspecified organism PLAN: This patient was seen in conjunction with SUPERINTENDENT METERSAlina. I have independently interviewed and examined the patient and reviewed pertinent history, examination findings, laboratory and plan of management. I have reviewed the note and agree with the documented findings with the few additional points. In brief, patient is admitted for multiple acute issues as mentioned below 1. Acute encephalopathy most likely infectious/metabolic encephalopathy. Patient is lactic acidosis and ammonia level high. Chest CT individually reviewed and shows groundglass consolidative opacity right left lung base. Empirically on IV vancomycin and Zosyn. Urinary antigens are negative. Respiratory panel negative. 2. Bilateral pneumonia: As mentioned above 3. Severe electrolyte abnormality: Patient has hypokalemia, hypomagnesemia and hypophosphatemia: Electrolytes getting replaced. 4. Mild abdominal discomfort, resolved with recent GI bleed: Stool for occult blood negative. Continue PPI Multiple other comorbidities including coronary artery disease status post CABG, chronic HFpEF, COPD, paroxysmal A. fib, peripheral arterial disease with a stable occlusion of right distal femoral artery with reconstitution at the popliteal artery. Other comorbidities diabetes mellitus type 2, hypertension, dyslipidemia, obstructive sleep apnea, chronic epilepsy/seizure, anxiety and depression, bipolar, and smoking. Multiple comorbidities complicates the present care and expect difficult and delay recovery Total time of the visit includes total time spent in counseling or coordination of care, (more than 50% of the total time, spent in obtaining medical information from nurses and other ancillary care providers,explaining to the patient about labs, imaging, diagnosis and management), discussion with oracle application consultant, review of labs and imaging is 30 minutes; I spent 18 minutes, more than half time and PA spent 12 minutes I have discussed my assessment with SUPERINTENDENT METERSAlina and orders have been reviewed. Charges/Coding Visit Charges Inpatient E&M: 85696 Subs Hosp L2
[2022-03-06] MEDS: Ezetimibe 10 MG Tablet PO (12:36)
[2022-03-06 12:50] LABS: Bedside Glucose 143 mg/dL (74-106)
[2022-03-06] MEDS: Sucralfate 1 GM Tablet PO ×3 (14:06→21:40)
[2022-03-06 15:30] LABS: Hematocrit 26.2 % (40-54); Hemoglobin 7.3 g/dL (13.0-16.5)
--- NOTE | 2022-03-06 15:36 | CASEMGMT ---
DAVID GIBBONS chart review: Patient was admitted 02/06/22-02/09/22 for acute anemia secondary to GI Bleed, RLE allen ischemia. Patient was discharged to home with recommended follow-up with PCP, Harry with Vascular surgery, and Friend for GI. Patient had labs completed on 02/19 for PCP appt. Patient was to see [facility] on 03/06/22. Patient returned to [facility] ED for abdominal pain and concern for GI bleed on 03/05/22. Patient admitted for GI bleed, pneumonia, and lactic acidosis. Patient is currently on 3.5lpm of oxygen. Will monitor patient for home oxygen. CM to assist in scheduling GI follow-up.
[2022-03-06] MEDS: Insulin Lispro 100 UNIT/ML INSULN.PEN SC ×2 (17:13→21:45)
[2022-03-06] MEDS: Tamsulosin HCl 0.4 MG Capsule PO (17:13)
[2022-03-06 17:26] LABS: Bedside Glucose 186 mg/dL (74-106)
--- NOTE | 2022-03-06 19:22 | NURSING ---
agree with student nurse Vilma Phelps documentation with student during meds and assessments
[2022-03-06] MEDS: Atorvastatin Calcium 80 MG Tablet PO (21:39)
[2022-03-06] MEDS: ARIPiprazole 2 MG Tablet PO (21:40)
[2022-03-06] MEDS: 0.9% Normal Saline 1,000 ML 125 ML IV (21:52)
[2022-03-06 22:10] LABS: Bedside Glucose 178 mg/dL (74-106)
[2022-03-07] VITALS (18 sets, daily range): BP systolic 98–121; BP diastolic 51–99; PULSE 68–86; RESP 14–18; TEMP 36.4–36.8; O2SAT 97–100
[2022-03-07] MEDS: 0.9% Saline Lock 10 ML Syringe IV ×3 (02:43→17:29)
[2022-03-07] MEDS: 0.9% Normal Saline 1,000 ML 125 ML IV (06:03)
[2022-03-07 06:39] LABS: Absolute Lymphocyte Count 1.27 X10^3/uL (0.83-4.51); Absolute Neutrophil Count 8.2 X10^3/uL (2.0-7.7); Basophil# 0.08 X10^3/uL; Basophil% 0.7 % (0-1); Eosinophil# 0.52 X10^3/uL; Eosinophils% 4.7 % (0-5); Hemoglobin 7.4 g/dL (13.0-16.5); Lymphocyte # 1.27 X10^3/ul (0.83-4.51); Lymphocyte % 11.6 % (19-41); Mean Corp Hgb Conc 27.4 g/dL (32-36); Mean Corpuscular Hgb 23.6 pg (27.0-32.0); Mean Platelet Vol. 10.4 fl (6.2-12.0); Monocyte# 0.88 X10^3/uL; NRBC Flagged by Analyzer 0 % (0-5); Neutrophil % 74.6 % (47-70); Platelet Count 260 K/mm3 (150-450); RBC Distribution Width CV 18.6 % (11.6-14.6); RBC Distribution Width SD 57.1 fl (35.1-43.9); Red Blood Count 3.14 M/mm3 (4.6-6.2)
[2022-03-07 07:11] LABS: Bedside Glucose 118 mg/dL (74-106)
[2022-03-07] MEDS: Ipratropium/Albuterol Sulfate 3 ML AMPUL.NEB INHALATION ×4 (07:13→18:47)
[2022-03-07 07:21] LABS: Anion Gap 2 (5-15); BUN 9 mg/dL (7-18); BUN/Creat Ratio 11.5 RATIO (10-20); Chloride 110 mmol/L (98-107); Creatinine, Serum 0.78 mg/dL (0.70-1.30); EST Glomerular Filtration Rate 109 mL/min (>60); Est Glom Filt Rate - Afr Amer 132 mL/min (>60); Estimated Creatinine Clearance 98.87 ml/min; Glucose 105 mg/dL (74-106); Magnesium 1.6 mg/dL (1.6-2.6); Phosphorus 2.8 mg/dL (2.5-4.9); Potassium 3.3 mmol/L (3.5-5.1); Sodium Level 141 mmol/L (136-145)
[2022-03-07] MEDS: Folic Acid 1 MG Tablet PO (08:34)
[2022-03-07] MEDS: Sucralfate 1 GM Tablet PO ×4 (08:34→22:05)
[2022-03-07] MEDS: Gabapentin 600 MG Tablet 1200 MG PO ×3 (08:36→17:27)
[2022-03-07] MEDS: Insulin Glargine-YFGN 100 UNIT/ML Pen 10 UNIT SC (08:36)
[2022-03-07] MEDS: Thiamine Hydrochloride 100 MG Tablet PO (08:37)
[2022-03-07] MEDS: DULoxetine Hcl 60 MG Capsule PO ×2 (08:37→22:05)
[2022-03-07] MEDS: Furosemide 20 MG Tablet PO (08:38)
[2022-03-07] MEDS: Pantoprazole Sodium 40 MG Tablet PO ×2 (08:38→22:05)
[2022-03-07] MEDS: levETIRAcetam 500 MG Tablet PO ×2 (08:38→22:05)
[2022-03-07] MEDS: Aspirin E.C. 81 MG Tablet PO (08:38)
[2022-03-07] MEDS: Clopidogrel Bisulfate 75 MG Tablet PO (08:38)
[2022-03-07] MEDS: traMADol 50 MG Tablet PO ×2 (08:39→20:32)
[2022-03-07] MEDS: Ezetimibe 10 MG Tablet PO (08:39)
[2022-03-07] MEDS: Sotalol Hydrochloride 80 MG Tablet 120 MG PO ×2 (11:12→22:05)
[2022-03-07] MEDS: Metoprolol(XL)Succ 100 MG Tablet PO (11:13)
[2022-03-07] MEDS: Lisinopril 10 MG Tablet PO (11:13)
[2022-03-07 11:21] LABS: Bedside Glucose 132 mg/dL (74-106)
--- NOTE | 2022-03-07 12:32 | PN.HOSP_ITS ---
Documented by User: Alina Platt AIRCRAFT STRUCTURE MECHANIC, AIRCRAFT STRUCTURE MECHANIC-C 03/07/22 12:41 Subjective Subjective Patient seen and examined. Reports continued shortness of breath. Intermittent nonproductive cough. Denies fever, chills. Objective Data Objective Data Vital Signs: Vital Signs Temp Pulse Resp BP Pulse Ox 97.5 F L 80 16 120/78 100 03/07/22 11:06 03/07/22 11:13 03/07/22 11:06 03/07/22 11:13 03/07/22 11:06 Oxygen Flow Rate (L/min) 4 Oxygen Delivery Method Nasal Cannula Weight: 174 lb 13.225 oz Body Mass Index (BMI) 27.0 Intake & Output: Intake and Output for Last 24 Hours 03/05/22 03/06/22 03/07/22 23:59 23:59 23:59 Intake Total 5830.4133 / 5830.4133 1375 / 1375 Output Total 550 / 550 550 / 550 Balance 5280.4133 / 5280.4133 825 / 825 Lab / Micro Data Result Diagrams: 03/07/22 05:40 03/07/22 05:40 Labs: Laboratory Results - last 24 hr 03/06/22 12:30: POC Glucose 143 H 03/06/22 15:17: Hgb 7.3 L, Hct 26.2 L 03/06/22 16:57: POC Glucose 186 H 03/06/22 21:44: POC Glucose 178 H 03/07/22 05:40: WBC 11.0, RBC 3.14 L, Hgb 7.4 L, Hct 27.0 L, MCV 86.0, MCH 23.6 L, MCHC 27.4 L, RDW Std Deviation 57.1 H, RDW Coeff of Arleen 18.6 H, Plt Count 260, MPV 10.4, Immature Gran % (Auto) 0.400, Neut % (Auto) 74.6 H, Lymph % (Auto) 11.6 L, [place] % (Auto) 8.0, Eos % (Auto) 4.7, Baso % (Auto) 0.7, Absolute Neuts (auto) 8.2 H, Absolute Lymphs (auto) 1.27, Nucleated RBC % 0 03/07/22 05:40: Sodium 141, Potassium 3.3 L, Chloride 110 H, Carbon Dioxide 29.0, Anion Gap 2 L, BUN 9, Creatinine 0.78, Estim Creat Clear Calc 98.87, Est GFR (MDRD) Af Amer 132, Est GFR (MDRD) Non-Af 109, BUN/Creatinine Ratio 11.5, Glucose 105, Calcium 8.0 L, Phosphorus 2.8, Magnesium 1.6 03/07/22 07:04: POC Glucose 118 H 03/07/22 11:13: POC Glucose 132 H Micro: Microbiology 03/06/22 Unknown Urine, Clean Catch Legionella Antigen - Final 03/06/22 Unknown Urine, Clean Catch Streptococcus pneumoniae Antigen (M - Final 03/06/22 03:00 Mucosa - Nasopharyngeal Respiratory Panel (PCR) - Final 03/05/22 21:40 Stool Stool Occult Blood (JEANETTE) - Final Rhythm Strip Rhythm Strip: Sinus Rhythm Rate: 99 Ectopy: None Physical Exam Const alert, oriented x3 and no apparent distress Orientation / Consciousness: awake, oriented to person, oriented to place and oriented to time HEENT normocephalic and moist oral mucous membranes Eyes PERRL, EOMs intact bilaterally and conjunctivae normal Neck no lymphadenopathy Resp Auscultation: crackles, wheezes and diminished lung sounds Cardio regular rate, regular rhythm and no murmurs Peripheral Pulses: pulses 2+ throughout GI normal to inspection, nondistended, normoactive bowel sounds, non-tender and non-distended Extremity normal to inspection Skin no rashes or lesions noted Lesions: no lesions Rashes: no rashes Trauma: no lacerations or abrasions Neuro CN's II-XII intact bilaterally, no focal motor deficits, no sensory deficits noted and deep tendon reflexes 2+ bilaterally Psych mental status grossly normal and affect normal Assessment & Plan Assessment/Plan (1) Bilateral pneumonia: QUALIFIERS: Lung location: lower lobe of lung Pneumonia type: due to unspecified organism Qualified Code(s): J18.9 - Pneumonia, unspecified organism PLAN: 1. Acute infectious/metabolic encephalopathy secondary to bilateral pneumonia/HCAP with lactic acidosis, electrolyte disturbances and hyperammonia- treatment per below. Mental status improved. 2. Bilateral pneumonia/HCAP with lactic acidosis-IV Vanco and IV Zosyn. Albuterol and DuoNeb aerosols. Sputum and blood cultures pending. 3. Hypomagnesia/hypophosphatemia/hypokalemia-replaced per protocol. Trend labs. 4. Hyperammonia-lactulose x1. Repeat ammonia level. 5. Abnormal EKG-similar to prior EKGs. Cardiac enzymes negative. 6. Recent GI bleed with duodenal ulcers-continue PPI, Carafate. Trend H&H. Recent endoscopy with treatment of duodenal ulcers. Stool for occult blood negative. Transfuse for hemoglobin less than 7. Check iron studies. 7. Alcohol dependence- [facility] protocol. Encouraged cessation. 8. Incidental adrenal mass-noted on CT of abdomen. Outpatient follow-up at discharge. 9. PAD-continue aspirin, Plavix, statin. Stable occlusion right femoral artery with reconstitution of the popliteal artery with severe stenosis of the right common femoral artery as well with distal occlusion. 10. Chronic COPD with chronic hypoxic respiratory failure-continue supplemental oxygen to maintain O2 above 90%. As needed albuterol aerosols. 11. Chronic heart failure with preserved ejection fraction- Echocardiogram 08/2021 demonstrated an EF of 65%, stage III diastolic dysfunction. Continue home Lasix regimen 12. CAD with history of CABG and stents-continue aspirin, statin, Plavix, isosorbide, metoprolol 13. Paroxysmal atrial fibrillation-on aspirin, Plavix, metoprolol, sotalol. 14. Type 2 diabetes [id number] with sliding scale insulin. Continue home insulin regimen. 15. KENNETH-continue home CPAP regimen. 16. Hypertension-stable, continue current regimen. 17. Hyperlipidemia-continue statin, Zetia. 18. Restless leg syndrome-on Requip. 19. Tobacco dependence-encouraged cessation. 20. Depression/insomnia/bipolar disorder-continue duloxetine, trazodone. 21. BPH-continue Flomax. 22. Seizure history-on Keppra. DVT prophylaxis- SCDs This patient was seen by DIANA Lujan under the supervision of Dr. Gautam and. Time spent examining patient, reviewing data and subsequent management of care: 12 Minutes Documented by User: Dr. Fidel Stover MD 03/07/22 13:40 Subjective Subjective Follow-up for bilateral pneumonia and acute encephalopathy. Seen and examined. Patient is still short of breath although of slight better than yesterday. Had DuoNeb nebulization. No chest pain or pressure. No further GI bleed. No confusion. Acute encephalopathy resolved Objective Data Lab / Micro Data Result Diagrams: 03/07/22 05:40 03/07/22 05:40 Physical Exam Narrative General: Awake, alert, oriented x3. HEENT: Atraumatic, PERRLA, EOMI, Normocephalic Oral: No Gingival or Mucosal Lesions/ Ulcerations Neck: Supple, No JVD, Negative Carotid Bruits Lungs: Air entry diminished in bilateral lung bases. Mild bibasilar crepitations and wheezing present, does not clear on coughing. Cardiovascular: CABG scar. Sinus rhythm, PVCs, Normal S1, Normal S2, No murmurs. Peripheral pulses diminished right DPA and PAYROLL ASSISTANT Abdomen: Bowel Sounds Present, Soft, Non Tender, Non-Distended : No renal angle tenderness. No suprapubic tenderness. Extremities: No edema, Capillary Refill Less than 3 Seconds Skin: No rashes, No breakdown Musculoskeletal: No Tenderness to Palpation of Joints or Extremities. Muscle strength 4/5 at major joints. Neurological: Cranial nerves II-XII grossly intact, DTR 2+/4 and Symmetrical, Neuro grossly intact Psych/Mental Status: Flat affect. Assessment & Plan Assessment/Plan (1) Bilateral pneumonia: QUALIFIERS: Lung location: lower lobe of lung Pneumonia type: due to unspecified organism Qualified Code(s): J18.9 - Pneumonia, unspecified organism PLAN: This patient was seen in conjunction with AIRCRAFT STRUCTURE MECHANIC, Alina. I have independently interviewed and examined the patient and reviewed pertinent history, examination findings, laboratory and plan of management. I have reviewed the note and agree with the documented findings with the few additional points. In brief, patient is admitted for multiple acute issues as mentioned below 1. Acute encephalopathy most likely infectious/metabolic encephalopathy. Patient is lactic acidosis and ammonia level high. Chest CT individually reviewed and shows groundglass consolidative opacity right left lung base. Empirically on IV vancomycin and Zosyn. Urinary antigens are negative. Respiratory panel negative. 2. Bilateral pneumonia: As mentioned above 03/07: Patient is still short of breath, wheezing. Continue antibiotic. Continue incentive spirometry and Pep 3. Severe electrolyte abnormality: Patient has hypokalemia, hypomagnesemia and hypophosphatemia: 03/07: Mild hypokalemia, serum magnesium and phosphorus on low normal, electrolytes getting replaced 4. Mild abdominal discomfort, resolved with recent GI bleed: Stool for occult blood negative. Continue PPI 5. Chronic HFpEF: Lasix 20 mg oral changed to IV, first dose now. Started on spironolactone 25 mg daily. Multiple other comorbidities including coronary artery disease status post CABG, COPD, paroxysmal A. fib, peripheral arterial disease with a stable occlusion of right distal femoral artery with reconstitution at the popliteal artery. Other comorbidities diabetes mellitus type 2, hypertension, dyslipidemia, obstructive sleep apnea, chronic epilepsy/seizure, anxiety and depression, bipolar, and smoking. Multiple comorbidities complicates the present care and expect difficult and delay recovery Total time of the visit includes total time spent in counseling or coordination of care, (more than 50% of the total time, spent in obtaining medical information from nurses and other ancillary care providers,explaining to the patient about labs, imaging, diagnosis and management), discussion with senior consultant, review of labs and imaging is 30 minutes; I spent 18 minutes, more than half time and PA spent 12 minutes I have discussed my assessment with AIRCRAFT STRUCTURE MECHANICAlina and orders have been reviewed. Charges/Coding Visit Charges Inpatient E&M: 67904 Subs Hosp L2
[2022-03-07 13:42] LABS: Ferritin 45 ng/mL (26-388); Iron 20 ug/dL (65-175); Iron Binding Capacity,Total 340 ug/dL (250-450); PERCENT IRON SATURATION 5.9 % (15.0-55.0)
--- NOTE | 2022-03-07 14:54 | CASEMGMT ---
Therapy is recommending HHC at discharge and this RN CM to room to discuss with pt/sig other. Pt declines need for any further therapy/HHC/OP at discharge. Pt voices no further questions/concerns/needs. SStaten RN CM
[2022-03-07] MEDS: Na Biphos/Potassium Phosphate PACKET 1 PACKET PO ×2 (15:09→22:06)
[2022-03-07] MEDS: Potassium Chloride Oral Tablet 20 MEQ 40 MEQ PO (15:09)
[2022-03-07] MEDS: Furosemide 20 MG/2 ML VIAL IV (15:10)
[2022-03-07] MEDS: Spironolactone 25 MG Tablet PO (15:10)
[2022-03-07] MEDS: Tamsulosin HCl 0.4 MG Capsule PO (17:26)
[2022-03-07 17:30] LABS: Vancomycin, Trough Level 16.6 ug/mL (5.0-15.0)
[2022-03-07 17:34] LABS: Vitamin B12 703 pg/mL (211-911)
[2022-03-07 17:51] LABS: Bedside Glucose 145 mg/dL (74-106)
--- NOTE | 2022-03-07 19:27 | NURSING ---
All documentation and medication administration completed by nursing agency manager Nicol Bolton completed under the supervision of this RN.
--- NOTE | 2022-03-07 20:49 | PCM.RX.CS ---
Consult Pharmacy has been consulted to manage selected antiobiotic: Vancomycin Type of Consult: Follow-up Suspected Infection: Pneumonia Labs: Sodium 141 mmol/L (136-145) 03/07/22 05:40 Potassium 3.3 mmol/L (3.5-5.1) L 03/07/22 05:40 Chloride 110 mmol/L (98-107) H 03/07/22 05:40 Carbon Dioxide 29.0 mmol/L (21.0-32.0) 03/07/22 05:40 Anion Gap 2 (5-15) L 03/07/22 05:40 BUN 9 mg/dL (7-18) 03/07/22 05:40 Creatinine 0.78 mg/dL (0.70-1.30) 03/07/22 05:40 Est GFR (MDRD) Af Amer 132 mL/min (>60) 03/07/22 05:40 Est GFR (MDRD) Non-Af 109 mL/min (>60) 03/07/22 05:40 BUN/Creatinine Ratio 11.5 RATIO (10-20) 03/07/22 05:40 Glucose 105 mg/dL (74-106) 03/07/22 05:40 Vancomycin Trough 16.6 ug/mL (5.0-15.0) H 03/07/22 16:32 Microbiology: Microbiology 03/06/22 Unknown Urine, Clean Catch Legionella Antigen - Final 03/06/22 Unknown Urine, Clean Catch Streptococcus pneumoniae Antigen (M - Final 03/06/22 03:00 Mucosa - Nasopharyngeal Respiratory Panel (PCR) - Final 03/05/22 21:40 Stool Stool Occult Blood (JEANETTE) - Final Goal Trough: 15-20 mcg/mL Pharmacy Plan for Drug Dosing: VANCOMYCIN LEVEL RECEIVED Current Vancomycin Dose: 1250mg q12h (05,17) Number of Doses Received: x2 plus loading dose Vancomycin Level: 16.6 Hours Since Last Dose: 11.5 Renal Function: SrCr 0.78 Renal Function Trend: SrCr improving Lab/Micro: Vancomycin Plan/Comments: Vancomycin trough is within the ordered goal trough range of 15-20. Recommend continuing current dose of 1250mg q12h and checking trough in 4 more doses Pending Level: 03/07/2022 at 1630 Pharmacy Service will continue to monitor and adjust dosing as required.
[2022-03-07] MEDS: Atorvastatin Calcium 80 MG Tablet PO (22:05)
[2022-03-07] MEDS: ARIPiprazole 2 MG Tablet PO (22:05)
[2022-03-07] MEDS: Insulin Lispro 100 UNIT/ML INSULN.PEN SC (22:09)
[2022-03-07 23:16] LABS: Bedside Glucose 170 mg/dL (74-106)
[2022-03-08] VITALS (8 sets, daily range): BP systolic 114–132; BP diastolic 64–80; PULSE 80–83; RESP 16–20; TEMP 35.9–36.6; O2SAT 96–100
[2022-03-08] MEDS: traMADol 50 MG Tablet PO (02:47)
[2022-03-08] MEDS: Sucralfate 1 GM Tablet PO ×2 (06:57→10:33)
[2022-03-08] MEDS: Na Biphos/Potassium Phosphate PACKET 1 PACKET PO (06:57)
[2022-03-08] MEDS: Acetaminophen 325 MG Tablet 650 MG PO (06:57)
[2022-03-08] MEDS: Ipratropium/Albuterol Sulfate 3 ML AMPUL.NEB INHALATION ×2 (07:05→11:11)
[2022-03-08 08:03] LABS: Absolute Lymphocyte Count 1.34 X10^3/uL (0.83-4.51); Absolute Neutrophil Count 8.7 X10^3/uL (2.0-7.7); Basophil# 0.05 X10^3/uL; Basophil% 0.4 % (0-1); Eosinophil# 0.46 X10^3/uL; Eosinophils% 3.9 % (0-5); Hematocrit 25.8 % (40-54); Hemoglobin 7.2 g/dL (13.0-16.5); Lymphocyte # 1.34 X10^3/ul (0.83-4.51); Lymphocyte % 11.5 % (19-41); Mean Corp Hgb Conc 27.9 g/dL (32-36); Mean Corpuscular Hgb 23.8 pg (27.0-32.0); Mean Corpuscular Volume 85.4 fL (80-94); Mean Platelet Vol. 10.2 fl (6.2-12.0); Monocyte# 1.11 X10^3/uL; Monocyte% 9.5 % (0-10); NRBC Flagged by Analyzer 0 % (0-5); Neutrophil # 8.65 X10^3/uL (2.7-7.7); Neutrophil % 74.4 % (47-70); Platelet Count 233 K/mm3 (150-450); RBC Distribution Width CV 18.8 % (11.6-14.6); RBC Distribution Width SD 57.3 fl (35.1-43.9); Red Blood Count 3.02 M/mm3 (4.6-6.2); White Blood Count 11.7 K/mm3 (4.4-11.0)
[2022-03-08] MEDS: Ezetimibe 10 MG Tablet PO (08:38)
[2022-03-08] MEDS: Metoprolol(XL)Succ 100 MG Tablet PO (08:38)
[2022-03-08] MEDS: Lisinopril 10 MG Tablet PO (08:39)
[2022-03-08] MEDS: levETIRAcetam 500 MG Tablet PO (08:39)
[2022-03-08] MEDS: Pantoprazole Sodium 40 MG Tablet PO (08:39)
[2022-03-08] MEDS: Folic Acid 1 MG Tablet PO (08:39)
[2022-03-08] MEDS: DULoxetine Hcl 60 MG Capsule PO (08:39)
[2022-03-08] MEDS: Aspirin E.C. 81 MG Tablet PO (08:39)
[2022-03-08] MEDS: Clopidogrel Bisulfate 75 MG Tablet PO (08:39)
[2022-03-08] MEDS: Furosemide 20 MG/2 ML VIAL IV (08:39)
[2022-03-08] MEDS: Gabapentin 600 MG Tablet 1200 MG PO ×2 (08:40→08:42)
[2022-03-08] MEDS: Sotalol Hydrochloride 80 MG Tablet 120 MG PO (08:40)
[2022-03-08] MEDS: Insulin Glargine-YFGN 100 UNIT/ML Pen 10 UNIT SC (08:40)
[2022-03-08] MEDS: Thiamine Hydrochloride 100 MG Tablet PO (08:40)
[2022-03-08] MEDS: Spironolactone 25 MG Tablet PO (08:40)
[2022-03-08] MEDS: 0.9% Saline Lock 10 ML Syringe IV (08:49)
[2022-03-08 08:52] LABS: Anion Gap 2 (5-15); BUN 9 mg/dL (7-18); BUN/Creat Ratio 10.5 RATIO (10-20); Calcium,Total 8.1 mg/dL (8.5-10.1); Chloride 106 mmol/L (98-107); Creatinine, Serum 0.85 mg/dL (0.70-1.30); EST Glomerular Filtration Rate 98 mL/min (>60); Est Glom Filt Rate - Afr Amer 119 mL/min (>60); Estimated Creatinine Clearance 90.73 ml/min; Glucose 123 mg/dL (74-106); Magnesium 1.4 mg/dL (1.6-2.6); Phosphorus 2.9 mg/dL (2.5-4.9); Potassium 3.7 mmol/L (3.5-5.1); Sodium Level 137 mmol/L (136-145)
--- NOTE | 2022-03-08 10:21 | PCM.DC ---
Discharge Instructions Diet Discharge Diet: Low fat / Low cholesterol, 2000 mg Sodium Diet and - (NO STRAWS, Meats cut bite size, Sips one at a time) Activity Discharge Activity: Return to Normal Activity Dressing / Incision Call your doctor if you observe: Fever of 101 or Higher, Shortness of breath, Dizziness and Chest pain Follow Up Care Test Results: Test results from this visit will be discussed in further detail at your follow-up appointment, if applicable. Discharge Plan Admission Admit Date/Time: 03/05/22 23:55 Primary Reason for Your Visit: Pneumonia Attending Provider: Fidel Stover Primary Care Provider: Blaze Louis Discharge Orders/Prescriptions Prescriptions: New spironolactone 25 mg Tablet 25 mg PO DAILY 30 Days Qty: 30 RF: 0 amoxicillin-pot clavulanate 875-125 mg tablet 1 tab PO BID Qty: 10 RF: 0 magnesium chloride 64 mg tablet,delayed release (DR/EC) 64 mg PO DAILY Qty: 30 RF: 0 Continued aspirin [Adult Aspirin Regimen] 81 mg tablet,delayed release (DR/EC) 81 mg PO DAILY RF: 0 Hold Instructions: Resume on 02/14/22. isosorbide mononitrate 120 mg tablet extended release 24 hr 120 mg PO DAILY Qty: 90 RF: 3 sotalol 120 mg tablet 120 mg PO BID Qty: 180 RF: 3 budesonide-formoterol 160-4.5 mcg/actuation HFA aerosol inhaler 2 puff INHALATION BID Qty: 10.2 RF: 5 duloxetine 60 mg capsule,delayed release(DR/EC) 60 mg PO QPM Qty: 30 RF: 1 gabapentin 600 MG tablet 1,200 mg PO TIDCM RF: 0 albuterol sulfate 2.5 MG/3 ML solution for nebulization 1 dose IH Q4H PRN PRN (Reason: Sob &/Or Wheezing) RF: 0 nitroglycerin 0.4 MG tablet, sublingual 0.4 mg sublingual PRN PRN (Reason: chest pain) RF: 0 albuterol sulfate 1 PUFF inhaler 2 puff INHALATION Q6H PRN PRN (Reason: Sob &/Or Wheezing) RF: 0 tamsulosin 0.4 MG capsule 0.4 mg PO DAILY@1730 RF: 0 insulin glargine 100 UNITS/ML insulin pen 10 units SC BREAKFAST RF: 0 levetiracetam [Keppra] 500 mg tablet 500 mg PO BID Qty: 60 RF: 0 promethazine 25 mg tablet 25 mg PO Q6H PRN (Reason: nausea) Qty: 20 RF: 0 metformin 1,000 mg tablet 1,000 mg PO BID RF: 0 aripiprazole 2 mg tablet 2 mg PO QHS RF: 0 sucralfate [Carafate] 1 gram tablet 1 g PO Q6H Qty: 120 RF: 0 pantoprazole [Protonix] 40 mg tablet,delayed release (DR/EC) 40 mg PO BID Qty: 60 RF: 0 duloxetine 30 mg capsule,delayed release(DR/EC) 60 mg PO QAM RF: 0 furosemide 40 mg tablet 20 mg PO DAILY RF: 0 tramadol 50 mg Tablet 50 mg PO Q6H PRN (Reason: Pain) RF: 0 atorvastatin 80 mg tablet 80 mg PO QHS Qty: 90 RF: 3 clopidogrel 75 mg tablet 75 mg PO DAILY Qty: 90 RF: 3 Hold Instructions: Resume on 02/14/22. ezetimibe 10 mg tablet 10 mg PO DAILY Qty: 90 RF: 3 lisinopril 10 mg tablet 10 mg PO DAILY Qty: 90 RF: 3 metoprolol succinate 100 mg tablet extended release 24 hr 100 mg PO DAILY Qty: 90 RF: 3 Referrals / Follow Up: Blaze Louis MD [Primary Care Provider] - Within 1 Week Disposition Disposition (needs filled in before D/C Order can be placed): Home, Self Care
[2022-03-08] MEDS: Insulin Lispro 100 UNIT/ML INSULN.PEN SC (10:34)
--- NOTE | 2022-03-08 10:37 | DS.PCM_ITS ---
Documented by User: Alina Platt NP, SURVEY AND MAPPING TECHNICIAN-C 03/08/22 10:54 Providers Date of Admission: 03/05/22 Date of Discharge: 03/08/22 Primary Care Physician: Dr. Blaze Louis MD Reason For Visit: PNA, LACTIC ACIDOSIS Diagnosis Discharge Diagnosis (1) Bilateral pneumonia: Status: Acute Code(s): J18.9 - Pneumonia, unspecified organism Qualifiers: Lung location: lower lobe of lung Pneumonia type: due to unspecified organism Qualified Code(s): J18.9 - Pneumonia, unspecified organism Medications at Discharge Home Medications gabapentin 1,200 mg PO TIDCM 12/07/15 albuterol sulfate 1 dose IH Q4H PRN PRN 11/09/19 albuterol sulfate 2 puff INHALATION Q6H PRN PRN 11/09/19 nitroglycerin 0.4 mg SUBLINGUAL PRN PRN 11/09/19 aspirin 81 mg tablet,delayed release 81 mg PO DAILY 05/24/20 insulin glargine 10 units SC BREAKFAST 12/18/20 tamsulosin 0.4 mg PO DAILY@1730 12/18/20 isosorbide mononitrate 120 mg tablet,extended release 24 hr 120 mg PO DAILY #90 tab 01/29/21 sotalol 120 mg tablet 120 mg PO BID #180 tab 01/29/21 levetiracetam [Keppra] 500 mg PO BID #60 tab 04/19/21 budesonide-formoterol HFA 160 mcg-4.5 mcg/actuation aerosol inhaler 2 puff INHALATION BID #10.2 g 05/30/21 duloxetine 60 mg capsule,delayed release 60 mg PO QPM #30 cap 09/30/21 promethazine 25 mg PO Q6H PRN #20 tab 12/17/21 atorvastatin 80 mg tablet 80 mg PO QHS #90 tab 01/17/22 clopidogrel 75 mg tablet 75 mg PO DAILY #90 tab 01/17/22 ezetimibe 10 mg tablet 10 mg PO DAILY #90 tab 01/17/22 lisinopril 10 mg tablet 10 mg PO DAILY #90 tab 01/17/22 metoprolol succinate 100 mg tablet,extended release 24 hr 100 mg PO DAILY #90 tab 01/17/22 aripiprazole 2 mg PO QHS 02/06/22 metformin 1,000 mg PO BID 02/06/22 pantoprazole [Protonix] 40 mg PO BID #60 tab 02/09/22 sucralfate [Carafate] 1 g PO Q6H #120 tab 02/09/22 duloxetine 60 mg PO QAM 03/05/22 furosemide 20 mg PO DAILY 03/05/22 tramadol 50 mg PO Q6H PRN 03/05/22 amoxicillin-pot clavulanate 1 tab PO BID #10 tab 03/08/22 magnesium chloride 64 mg PO DAILY #30 tab 03/08/22 spironolactone 25 mg PO DAILY 30 Days #30 tab 03/08/22 Hospital Course Operations None Procedures None Summary of Care Provided Hospital Course: Patient is a 56-year-old male admitted 03/05/2022 due to confusion. 1. Acute infectious/metabolic encephalopathy secondary to bilateral pneumonia/HCAP with lactic acidosis, electrolyte disturbances and hyperammonia-t reatment per below. Mental status at baseline. Follow up with PCP in one week. Recommend repeat CBC, BMP with mag and Phos within 1 week by PCP. 2. Bilateral pneumonia/HCAP with lactic acidosis-IV Vanco and IV Zosyn during admission. Blood cultures with no growth so far. Discharge on Augmentin to complete course. 3. Hypomagnesia/hypophosphatemia/hypokalemia-replaced per protocol. Recommend repeat labs as noted above. 4. Hyperammonia-lactulose x1. Initiated on spironolactone. 5. Abnormal EKG-similar to prior EKGs. Cardiac enzymes negative. 6. Recent GI bleed with duodenal ulcers-continue PPI, Carafate. Recent endoscopy with treatment of duodenal ulcers. Stool for occult blood negative. Iron studies with iron deficiency, begin iron supplementation at discharge. Recommend repeat CBC within 1 week by PCP. 7. Alcohol dependence- Encouraged cessation. 8. Incidental adrenal mass-noted on CT of abdomen. Outpatient follow-up at discharge. 9. PAD-continue aspirin, Plavix, statin. Stable occlusion right femoral artery with reconstitution of the popliteal artery with severe stenosis of the right common femoral artery as well with distal occlusion. Continue outpatient follow up. 10. Chronic COPD with chronic hypoxic respiratory failure-continue supplemental oxygen to maintain O2 above 90%. As needed albuterol aerosols. 11. Chronic heart failure with preserved ejection fraction- Echocardiogram 08/2021 demonstrated an EF of 65%, stage III diastolic dysfunction. Continue home Lasix regimen. 12. CAD with history of CABG and stents-continue aspirin, statin, Plavix, isosorbide, metoprolol. 13. Paroxysmal atrial fibrillation-on aspirin, Plavix, metoprolol, sotalol. 14. Type 2 diabetes mellitus- Continue home insulin and oral regimen. 15. KENNETH-continue home CPAP regimen. 16. Hypertension-stable, continue current regimen. 17. Hyperlipidemia-continue statin, Zetia. 18. Restless leg syndrome-on Requip. 19. Tobacco dependence-encouraged cessation. 20. Depression/insomnia/bipolar disorder-continue duloxetine, trazodone. 21. BPH-continue Flomax. 22. Seizure history-on Keppra. Physical Exam Const alert, oriented x3 and no apparent distress Orientation / Consciousness: awake, oriented to person, oriented to place and oriented to time HEENT normocephalic and moist oral mucous membranes Eyes PERRL, EOMs intact bilaterally and conjunctivae normal Neck no lymphadenopathy Resp Auscultation: crackles, wheezes and diminished lung sounds Cardio regular rate, regular rhythm and no murmurs Peripheral Pulses: pulses 2+ throughout GI normal to inspection, nondistended, normoactive bowel sounds, non-tender and non-distended Extremity normal to inspection Skin no rashes or lesions noted Lesions: no lesions Rashes: no rashes Trauma: no lacerations or abrasions Neuro CN's II-XII intact bilaterally, no focal motor deficits, no sensory deficits n oted and deep tendon reflexes 2+ bilaterally Psych mental status grossly normal and affect normal Patient seen and examined prior to discharge. Physical assessment as noted above. Patient is stable for discharge with follow up recommendations as noted above. This patient was seen by DIANA Lujan under the supervision of Dr. Stover. Time spent examining patient, reviewing data and subsequent management of care: 17 Minutes Weight / BMI Weight Weight: 191 lb 2.252 oz Body Mass Index (BMI) 27.0 ABG / Lab / Microbiology Data Result Diagrams: 03/08/22 07:42 03/08/22 07:42 Laboratory: Laboratory Results - last 24 hr 03/07/22 05:40: Iron 20 L, TIBC 340, Iron Saturation 5.9 L, Ferritin 45, Folate 4.40 03/07/22 11:13: POC Glucose 132 H 03/07/22 16:32: Vancomycin Trough 16.6 H 03/07/22 16:32: Vitamin B12 703 03/07/22 17:23: POC Glucose 145 H 03/07/22 21:59: POC Glucose 170 H 03/08/22 07:42: WBC 11.7 H, RBC 3.02 L, Hgb 7.2 L, Hct 25.8 L, MCV 85.4, MCH 23.8 L, MCHC 27.9 L, RDW Std Deviation 57.3 H, RDW Coeff of Arleen 18.8 H, Plt Co unt 233, MPV 10.2, Immature Gran % (Auto) 0.300, Neut % (Auto) 74.4 H, Lymph % (Auto) 11.5 L, Dale % (Auto) 9.5, Eos % (Auto) 3.9, Baso % (Auto) 0.4, Absolute Neuts (auto) 8.7 H, Absolute Lymphs (auto) 1.34, Nucleated RBC % 0 03/08/22 07:42: Sodium 137, Potassium 3.7, Chloride 106, Carbon Dioxide 29.0, Anion Gap 2 L, BUN 9, Creatinine 0.85, Estim Creat Clear Calc 90.73, Est GFR (MDRD) Af Amer 119, Est GFR (MDRD) Non-Af 98, BUN/Creatinine Ratio 10.5, Glucose 123 H, Calcium 8.1 L, Phosphorus 2.9, Magnesium 1.4 L 03/08/22 07:42: Ammonia 48.0 H Microbiology: Microbiology 03/06/22 Unknown Urine, Clean Catch Legionella Antigen - Final 03/06/22 Unknown Urine, Clean Catch Streptococcus pneumoniae Antigen (M - Final 03/06/22 03:00 Mucosa - Nasopharyngeal Respiratory Panel (PCR) - Final 03/05/22 21:40 Stool Stool Occult Blood (JEANETTE) - Final D/C Instructions Discharge Diet: Low fat / Low cholesterol, 2000 mg Sodium Diet and - (NO STRAWS, Meats cut bite size, Sips one at a time) Call your doctor if you observe: Fever of 101 or Higher, Shortness of breath, Dizziness and Chest pain Meaningful Use Info Meaningful Use Diagnoses (Choose all that apply): None applicable Discharge Plan Admission Admit Date/Time: 03/05/22 23:55 Primary Reason for Your Visit: Pneumonia Attending Provider: Fidel Stover Primary Care Provider: Blaze Louis Discharge Orders/Prescriptions Prescriptions: New spironolactone 25 mg Tablet 25 mg PO DAILY 30 Days Qty: 30 RF: 0 amoxicillin-pot clavulanate 875-125 mg tablet 1 tab PO BID Qty: 10 RF: 0 magnesium chloride 64 mg tablet,delayed release (DR/EC) 64 mg PO DAILY Qty: 30 RF: 0 Continued aspirin [Adult Aspirin Regimen] 81 mg tablet,delayed release (DR/EC) 81 mg PO DAILY RF: 0 Hold Instructions: Resume on 02/14/22. isosorbide mononitrate 120 mg tablet extended release 24 hr 120 mg PO DAILY Qty: 90 RF: 3 sotalol 120 mg tablet 120 mg PO BID Qty: 180 RF: 3 budesonide-formoterol 160-4.5 mcg/actuation HFA aerosol inhaler 2 puff INHALATION BID Qty: 10.2 RF: 5 duloxetine 60 mg capsule,delayed release(DR/EC) 60 mg PO QPM Qty: 30 RF: 1 gabapentin 600 MG tablet 1,200 mg PO TIDCM RF: 0 albuterol sulfate 2.5 MG/3 ML solution for nebulization 1 dose IH Q4H PRN PRN (Reason: Sob &/Or Wheezing) RF: 0 nitroglycerin 0.4 MG tablet, sublingual 0.4 mg sublingual PRN PRN (Reason: chest pain) RF: 0 albuterol sulfate 1 PUFF inhaler 2 puff INHALATION Q6H PRN PRN (Reason: Sob &/Or Wheezing) RF: 0 tamsulosin 0.4 MG capsule 0.4 mg PO DAILY@1730 RF: 0 insulin glargine 100 UNITS/ML insulin pen 10 units SC BREAKFAST RF: 0 levetiracetam [Keppra] 500 mg tablet 500 mg PO BID Qty: 60 RF: 0 promethazine 25 mg tablet 25 mg PO Q6H PRN (Reason: nausea) Qty: 20 RF: 0 metformin 1,000 mg tablet 1,000 mg PO BID RF: 0 aripiprazole 2 mg tablet 2 mg PO QHS RF: 0 sucralfate [Carafate] 1 gram tablet 1 g PO Q6H Qty: 120 RF: 0 pantoprazole [Protonix] 40 mg tablet,delayed release (DR/EC) 40 mg PO BID Qty: 60 RF: 0 duloxetine 30 mg capsule,delayed release(DR/EC) 60 mg PO QAM RF: 0 furosemide 40 mg tablet 20 mg PO DAILY RF: 0 tramadol 50 mg Tablet 50 mg PO Q6H PRN (Reason: Pain) RF: 0 atorvastatin 80 mg tablet 80 mg PO QHS Qty: 90 RF: 3 clopidogrel 75 mg tablet 75 mg PO DAILY Qty: 90 RF: 3 Hold Instructions: Resume on 02/14/22. ezetimibe 10 mg tablet 10 mg PO DAILY Qty: 90 RF: 3 lisinopril 10 mg tablet 10 mg PO DAILY Qty: 90 RF: 3 metoprolol succinate 100 mg tablet extended release 24 hr 100 mg PO DAILY Qty: 90 RF: 3 Other Ambulatory Orders: Glucometer (Routine) Location: None Selected Ordered By: Alina Platt NP Referrals / Follow Up: Blaze Louis MD [Primary Care Provider] - Within 1 Week Disposition Disposition (needs filled in before D/C Order can be placed): Home, Self Care Documented by User: Dr. Fidel Stover MD 03/08/22 14:41 Providers Date of Admission: 03/05/22 Reason For Visit: PNA, LACTIC ACIDOSIS Medications at Discharge Home Medications gabapentin 1,200 mg PO TIDCM 12/07/15 albuterol sulfate 1 dose IH Q4H PRN PRN 11/09/19 albuterol sulfate 2 puff INHALATION Q6H PRN PRN 11/09/19 nitroglycerin 0.4 mg SUBLINGUAL PRN PRN 11/09/19 aspirin 81 mg tablet,delayed release 81 mg PO DAILY 05/24/20 insulin glargine 10 units SC BREAKFAST 12/18/20 tamsulosin 0.4 mg PO DAILY@1730 12/18/20 isosorbide mononitrate 120 mg tablet,extended release 24 hr 120 mg PO DAILY #90 tab 01/29/21 sotalol 120 mg tablet 120 mg PO BID #180 tab 01/29/21 levetiracetam [Keppra] 500 mg PO BID #60 tab 04/19/21 budesonide-formoterol HFA 160 mcg-4.5 mcg/actuation aerosol inhaler 2 puff INHALATION BID #10.2 g 05/30/21 duloxetine 60 mg capsule,delayed release 60 mg PO QPM #30 cap 09/30/21 promethazine 25 mg PO Q6H PRN #20 tab 12/17/21 atorvastatin 80 mg tablet 80 mg PO QHS #90 tab 01/17/22 clopidogrel 75 mg tablet 75 mg PO DAILY #90 tab 01/17/22 ezetimibe 10 mg tablet 10 mg PO DAILY #90 tab 01/17/22 lisinopril 10 mg tablet 10 mg PO DAILY #90 tab 01/17/22 metoprolol succinate 100 mg tablet,extended release 24 hr 100 mg PO DAILY #90 tab 01/17/22 aripiprazole 2 mg PO QHS 02/06/22 metformin 1,000 mg PO BID 02/06/22 pantoprazole [Protonix] 40 mg PO BID #60 tab 02/09/22 sucralfate [Carafate] 1 g PO Q6H #120 tab 02/09/22 duloxetine 60 mg PO QAM 03/05/22 furosemide 20 mg PO DAILY 03/05/22 tramadol 50 mg PO Q6H PRN 03/05/22 amoxicillin-pot clavulanate 1 tab PO BID #10 tab 03/08/22 magnesium chloride 64 mg PO DAILY #30 tab 03/08/22 spironolactone 25 mg PO DAILY 30 Days #30 tab 03/08/22 Hospital Course Summary of Care Provided Minutes Spent on Discharge: 35 Hospital Course: This patient was seen in conjunction with SURVEY AND MAPPING TECHNICIAN, Alina. I have independently interviewed and examined the patient and reviewed pertinent history, examination findings, laboratory and plan of management. I have reviewed the note and agree with the documented findings with the few additional points. In brief, patient is admitted for multiple acute issues as mentioned below 1. Acute encephalopathy most likely infectious/metabolic encephalopathy. Patient is lactic acidosis and ammonia level high. Chest CT individually reviewed and shows groundglass consolidative opacity right left lung base. Empirically on IV vancomycin and Zosyn. Urinary antigens are negative. Respiratory panel negative. 2. Bilateral pneumonia: As mentioned above 03/08: Patient shortness of breath and wheezing is improved. Patient is discharged on antibiotic Augmentin. Advised to continue incentive spirometry and Pep at home 3. Severe electrolyte abnormality: Patient has hypokalemia, hypomagnesemia and hypophosphatemia: 03/07: Mild hypokalemia, serum magnesium and phosphorus on low normal, electrolyt es getting replaced 03/08: Hypokalemia corrected. Patient on magnesium sulfate. Hypophosphatemia cor rected. 4. Mild abdominal discomfort, resolved with recent GI bleed: Stool for occult blood negative. Continue PPI 5. Chronic HFpEF: Lasix 20 mg oral changed to IV, first dose now. Started on spironolactone 25 mg daily. Multiple other comorbidities including coronary artery disease status post CABG, COPD, paroxysmal A. fib, peripheral arterial disease with a stable occlusion of right distal femoral artery with reconstitution at the popliteal artery. Other comorbidities diabetes mellitus type 2, hypertension, dyslipidemia, obstructive sleep apnea, chronic epilepsy/seizure, anxiety and depression, bipolar, and smoking. Multiple comorbidities complicates the present care and expect difficult and delay recovery Discharge medication reconciliation done. Discharge follow-up instructions completed. Discharge process discussed with the patient and all questions were answered to patient's satisfaction. Total time spent, exact 35 minutes on discharge meds reconciliation, examina tion, coordination of care with nurses and ancillary staff, review of imaging and blood test and discussion with the patient on follow-up instructions. I have discussed my assessment with SURVEY AND MAPPING TECHNICIANAlina and orders have been reviewed. Physical Exam Narrative Patient was evaluated by speech therapist and advised soft bite-size foods, no straw, sips after swallow but patient is nonadherent. He has history of multiple recurrent hospitalization for nonadherence. General: Awake, alert, oriented x3. HEENT: Atraumatic, PERRLA, EOMI, Normocephalic Oral: No Gingival or Mucosal Lesions/ Ulcerations Neck: Supple, No JVD, Negative Carotid Bruits Lungs: Air entry diminished in bilateral lung bases. Mild bibasilar crepitations and wheezing present, has much improved. Cardiovascular: CABG scar. Sinus rhythm, PVCs, Normal S1, Normal S2, No murmurs. 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 Abdomen: Bowel Sounds Present, Soft, Non Tender, Non-Distended : No renal angle tenderness. No suprapubic tenderness. Extremities: No edema, Capillary Refill Less than 3 Seconds Skin: No rashes, No breakdown Musculoskeletal: No Tenderness to Palpation of Joints or Extremities. Muscle strength 4/5 at major joints. Neurological: Cranial nerves II-XII grossly intact, DTR 2+/4 and Symmetrical, Neuro grossly intact Psych/Mental Status: Flat affect. ABG / Lab / Microbiology Data Result Diagrams: 03/08/22 07:42 03/08/22 07:42 Discharge Plan Admission Admit Date/Time: 03/05/22 23:55 Primary Reason for Your Visit: Pneumonia Attending Provider: Fidel Stover Primary Care Provider: Blaze Louis Discharge Orders/Prescriptions Prescriptions: New spironolactone 25 mg Tablet 25 mg PO DAILY 30 Days Qty: 30 RF: 0 amoxicillin-pot clavulanate 875-125 mg tablet 1 tab PO BID Qty: 10 RF: 0 magnesium chloride 64 mg tablet,delayed release (DR/EC) 64 mg PO DAILY Qty: 30 RF: 0 Continued aspirin [Adult Aspirin Regimen] 81 mg tablet,delayed release (DR/EC) 81 mg PO DAILY RF: 0 Hold Instructions: Resume on 02/14/22. isosorbide mononitrate 120 mg tablet extended release 24 hr 120 mg PO DAILY Qty: 90 RF: 3 sotalol 120 mg tablet 120 mg PO BID Qty: 180 RF: 3 budesonide-formoterol 160-4.5 mcg/actuation HFA aerosol inhaler 2 puff INHALATION BID Qty: 10.2 RF: 5 duloxetine 60 mg capsule,delayed release(DR/EC) 60 mg PO QPM Qty: 30 RF: 1 gabapentin 600 MG tablet 1,200 mg PO TIDCM RF: 0 albuterol sulfate 2.5 MG/3 ML solution for nebulization 1 dose IH Q4H PRN PRN (Reason: Sob &/Or Wheezing) RF: 0 nitroglycerin 0.4 MG tablet, sublingual 0.4 mg sublingual PRN PRN (Reason: chest pain) RF: 0 albuterol sulfate 1 PUFF inhaler 2 puff INHALATION Q6H PRN PRN (Reason: Sob &/Or Wheezing) RF: 0 tamsulosin 0.4 MG capsule 0.4 mg PO DAILY@1730 RF: 0 insulin glargine 100 UNITS/ML insulin pen 10 units SC BREAKFAST RF: 0 levetiracetam [Keppra] 500 mg tablet 500 mg PO BID Qty: 60 RF: 0 promethazine 25 mg tablet 25 mg PO Q6H PRN (Reason: nausea) Qty: 20 RF: 0 metformin 1,000 mg tablet 1,000 mg PO BID RF: 0 aripiprazole 2 mg tablet 2 mg PO QHS RF: 0 sucralfate [Carafate] 1 gram tablet 1 g PO Q6H Qty: 120 RF: 0 pantoprazole [Protonix] 40 mg tablet,delayed release (DR/EC) 40 mg PO BID Qty: 60 RF: 0 duloxetine 30 mg capsule,delayed release(DR/EC) 60 mg PO QAM RF: 0 furosemide 40 mg tablet 20 mg PO DAILY RF: 0 tramadol 50 mg Tablet 50 mg PO Q6H PRN (Reason: Pain) RF: 0 atorvastatin 80 mg tablet 80 mg PO QHS Qty: 90 RF: 3 clopidogrel 75 mg tablet 75 mg PO DAILY Qty: 90 RF: 3 Hold Instructions: Resume on 02/14/22. ezetimibe 10 mg tablet 10 mg PO DAILY Qty: 90 RF: 3 lisinopril 10 mg tablet 10 mg PO DAILY Qty: 90 RF: 3 metoprolol succinate 100 mg tablet extended release 24 hr 100 mg PO DAILY Qty: 90 RF: 3 Other Ambulatory Orders: Glucometer (Routine) Location: None Selected Ordered By: Alina Platt NP Referrals / Follow Up: Blaze Louis MD [Primary Care Provider] - Within 1 Week Disposition Disposition (needs filled in before D/C Order can be placed): Home, Self Care Charges/Coding Visit Charges Inpatient E&M: 51802 Disch Hosp
[2022-03-08 11:21] LABS: Bedside Glucose 118 mg/dL (74-106)
[2022-03-08 11:35] LABS: Bedside Glucose 164 mg/dL (74-106)
== END 2022-03-08 12:19 | disposition home or self-care (01) | DRG 139 ==
LOC: ED 03-06 00:27 → PCU 03-06 01:05
PROVIDERS: Nurse Practitioner Family; Admitting Provider Family Medicine; Emergency Provider Emergency Medicine; PCP Family Medicine; Visit Provider Internal Medicine
DX: J18.9 Pneumonia, unspecified organism (principal); G93.41 Metabolic encephalopathy; K26.4 Chronic or unspecified duodenal ulcer with hemorrhage; I27.21 Secondary pulmonary arterial hypertension; E87.2 Acidosis; E83.39 Other disorders of phosphorus metabolism; J44.0 Chronic obstructive pulmonary disease with (acute) lower respiratory infection; I48.0 Paroxysmal atrial fibrillation; G25.81 Restless legs syndrome; J96.11 Chronic respiratory failure with hypoxia; E11.51 Type 2 diabetes mellitus with diabetic peripheral angiopathy without gangrene; I11.0 Hypertensive heart disease with heart failure; I50.32 Chronic diastolic (congestive) heart failure; F31.9 Bipolar disorder, unspecified; G40.909 Epilepsy, unspecified, not intractable, without status epilepticus; Z79.4 Long term (current) use of insulin; E27.9 Disorder of adrenal gland, unspecified; F17.210 Nicotine dependence, cigarettes, uncomplicated; N40.0 Benign prostatic hyperplasia without lower urinary tract symptoms; E87.6 Hypokalemia; G47.33 Obstructive sleep apnea (adult) (pediatric); F41.9 Anxiety disorder, unspecified; E78.5 Hyperlipidemia, unspecified; F10.10 Alcohol abuse, uncomplicated; I25.10 Atherosclerotic heart disease of native coronary artery without angina pectoris; E83.42 Hypomagnesemia; I25.2 Old myocardial infarction; K25.7 Chronic gastric ulcer without hemorrhage or perforation; K21.00 Gastro-esophageal reflux disease with esophagitis, without bleeding; Z20.822 Contact with and (suspected) exposure to COVID-19; Y95 Nosocomial condition; Z79.02 Long term (current) use of antithrombotics/antiplatelets; Z79.82 Long term (current) use of aspirin; Z79.899 Other long term (current) drug therapy
CPT/HCPCS: 36415; 70450; 71275; 74174; 80048; 80053; 80202; 81001; 82077; 82140; 82274; 82607; 82728; 82746; 82803; 82962; 83540; 83550; 83605; 83690; 83735; 84100; 84484; 85014; 85018; 85025; 87040; 87449; 87633; 87635; 87641; 92526; 92610; 93005; 94640; 97162; 97166; 97535; 99284; J7030; J7040; J7050; A4216; J0295; J1940; U0003; U0005

== ENCOUNTER → 2022-03-27 | Outpatient (CLI) | payer MEDICAID, SELFPAY ==
--- NOTE | 2022-03-27 12:39 | RAD_ITS ---
STUDY: X-RAY CHEST REASON FOR EXAM: Male, 56 years old. PNEUMONIA TECHNIQUE: PA and lateral COMPARISON: 02/17/2022. FINDINGS: There is a mild infiltrate at the right lung base medially. There is There is no demonstrated pleural abnormality. Normal size heart. There has been a CABG. Normal mediastinum and ranjit. Normal visualized pulmonary arteries. Normal visualized aortic arch and descending thoracic aorta. Normal visualized thoracic spine. Normal visualized ribs, clavicles, and shoulders. There is no demonstrated abnormality of the visualized soft tissue structures of the upper abdomen. RAD/Chest PA and Lateral IMPRESSION: Mild infiltrate at the right base medially. Electronically Signed: Lamin Nunez MD at 2:49 EDT ,
[2022-03-27 15:49] LABS: Absolute Neutrophil Count 8.1 X10^3/uL (2.0-7.7); Basophil# 0.07 X10^3/uL; Basophil% 0.6 % (0-1); Eosinophil# 0.33 X10^3/uL; Eosinophils% 2.9 % (0-5); Hematocrit 34.8 % (40-54); Hemoglobin 9.8 g/dL (13.0-16.5); Lymphocyte % 15.9 % (19-41); Mean Corp Hgb Conc 28.2 g/dL (32-36); Mean Corpuscular Volume 95.9 fL (80-94); Mean Platelet Vol. 10.3 fl (6.2-12.0); Monocyte# 0.95 X10^3/uL; Monocyte% 8.4 % (0-10); NRBC Flagged by Analyzer 0.3 % (0-5); Neutrophil # 8.11 X10^3/uL (2.7-7.7); Neutrophil % 71.6 % (47-70); POSITIVE MORPHOLOGY YES; Platelet Count 404 K/mm3 (150-450); RBC Distribution Width CV 24.8 % (11.6-14.6); RBC Distribution Width SD 86.2 fl (35.1-43.9); Red Blood Count 3.63 M/mm3 (4.6-6.2); White Blood Count 11.3 K/mm3 (4.4-11.0)
[2022-03-27 16:03] LABS: ALB/GLOB Ratio 0.9 RATIO (0.9-2.4); AST(SGOT) 16 U/L (15-37); Alanine Aminotransfer ALT/SGPT 22 U/L (16-61); Alkaline Phosphatase 77 U/L (45-117); Anion Gap 3 (5-15); BUN 9 mg/dL (7-18); BUN/Creat Ratio 12.7 RATIO (10-20); Calcium,Total 8.9 mg/dL (8.5-10.1); Chloride 104 mmol/L (98-107); Creatinine, Serum 0.71 mg/dL (0.70-1.30); EST Glomerular Filtration Rate 122 mL/min (>60); Est Glom Filt Rate - Afr Amer 147 mL/min (>60); Globulin 3.4 g/dL (2.2-4.2); Glucose 104 mg/dL (74-106); Potassium 3.4 mmol/L (3.5-5.1); Protein, Total 6.4 g/dL (6.4-8.2); Sodium Level 138 mmol/L (136-145)
[2022-03-27 16:08] LABS: Differential Indicated SCAN CRITERIA MET
[2022-03-27 16:21] LABS: Differential Comment SCANNED
[2022-03-27 16:22] LABS: Anisocytosis 2+; Hypochromasia 2+
== END | disposition home or self-care (01) ==
LOC: MTLAB 12:38
PROVIDERS: PCP Family Medicine; Referring Provider Family Medicine; Visit Provider Family Medicine
DX: J18.9 Pneumonia, unspecified organism (principal)
CPT/HCPCS: 71046; 80053; 82140; 85025

== ENCOUNTER → 2022-03-28 | Outpatient (CLI) | payer MEDICAID, SELFPAY ==
[2022-03-28 17:41] LABS: Ferritin 111 ng/mL (26-388); Iron 197 ug/dL (65-175); Iron Binding Capacity,Total 432 ug/dL (250-450)
[2022-03-28 17:44] LABS: Vitamin B12 384 pg/mL (211-911)
== END | disposition home or self-care (01) ==
LOC: MFPLAB 14:17
PROVIDERS: PCP Family Medicine; Referring Provider Family Medicine; Visit Provider Family Medicine
DX: D64.9 Anemia, unspecified (principal)
CPT/HCPCS: 36415; 82607; 82728; 83540; 83550

== ENCOUNTER 2022-04-01 12:33 | Emergency (ER) | payer MEDICAID, SELFPAY ==
[2022-04-01 12:34] VITALS: BP 148/78; PULSE 89; RESP 16; TEMP 36.6; O2SAT 94; BMI 28.1
--- NOTE | 2022-04-01 13:12 | EKG12_ITS ---
Test Reason : BACK PAIN Blood Pressure : / mmHG Vent. Rate : 092 BPM Atrial Rate : 276 BPM P-R Int : 000 ms QRS Dur : 084 ms QT Int : 412 ms P-R-T Axes : 129 041 106 degrees QTc Int : 509 ms Normal sinus rhythm Prolonged QT Abnormal ECG Confirmed by JHON LOMELI, SMITA ([id number]), order editor CANDICE ZAZUETA ([id number]) on 04/02/2022 9:49:35 AM Referred By: BB Confirmed By:SMITA FERREIRA MD
--- NOTE | 2022-04-01 13:13 | EDS_ITS ---
HPI History of Present Illness Chief Complaint: Back Informant: patient Onset/Context/Timing Onset: Days (2) Activity at onset: gradual and onset Timing: Continuous Quality: Positive for Tightness Location: - (Bilateral lower chest) Current Severity: Moderate Maximum Severity: Moderate Worsened By: Nothing; Not Worsened By Breathing Relieved By: Nothing (Despite using albuterol intermittently) Associated Symptoms: Positive for Dyspnea, Cough and Lightheadedness; Negative for Nausea, Vomiting, Diaphoresis, Fever and Palpitations Narrative Narrative: Patient states for the past week he has been having pain between his shoulder blades in his upper back, it is mostly been there but sort of off and o n. He states he feels like it may be his lungs and then later states that this is the discomfort he had with a heart attack several times in the past. He has had a cough. Dyspnea with exertion. He is chronically on 2 L of oxygen at home, without checking his pulse oximetry he has had it up to 5 for the last several days. During that time he has awakened suddenly in the middle of the night short of breath several times. He is coughing up small amounts of yellow sputum. He denies any fevers or chills. He has felt malaise. No edema in his legs. Chest discomfort has been constant for the past 2 days. He has been using a rescue inhaler but it has not helped any of his symptoms at all even temporarily or partially. PE Risk Factors: Negative for Recent Travel/Surgery, Recent Immobilization, Prior DVT or PE, Cancer and OCP + Smoking + >/=35 PFSH [facility] Medical History (HFpEF) heart failure with preserved ejection fraction Acute hypotension Acute repetitive seizure Atherosclerosis of coronary artery bypass graft without angina pectoris Atherosclerosis of coronary artery of [place] heart without angina pectoris Atrial fibrillation Chest wall contusion Chronic anticoagulation Chronic obstructive pulmonary disease CPAP (continuous positive airway pressure) dependence Diabetes mellitus Essential hypertension Fall from slip, trip, or stumble Fracture of rib Hyperlipidemia Hypertension Leg swelling Lower extremity edema Major depression Metatarsal bone fracture Myocardial infarct Nicotine abuse KENNETH and COPD overlap syndrome PAD (peripheral artery disease) Paroxysmal atrial fibrillation Rectal bleeding Secondary pulmonary arterial hypertension Sleep apnea Smoking greater than 40 pack years Stroke/cerebrovascular accident Suicidal ideation Syncope Typical atrial flutter Home Medications gabapentin 1,200 mg PO TIDCM 12/07/15 [History Last Taken 02/06/22] albuterol sulfate 1 dose IH Q4H PRN PRN 11/09/19 [History Last Taken 02/06/22] albuterol sulfate 2 puff INHALATION Q6H PRN PRN 11/09/19 [History Last Taken 02/05/22] nitroglycerin 0.4 mg SUBLINGUAL PRN PRN 11/09/19 [History Last Taken 02/06/22] aspirin 81 mg tablet,delayed release 81 mg PO DAILY 05/24/20 [History Last Taken 02/06/22] insulin glargine 10 units SC BREAKFAST 12/18/20 [History Last Taken 02/06/22] tamsulosin 0.4 mg PO DAILY@1730 12/18/20 [History Last Taken 02/05/22] isosorbide mononitrate 120 mg tablet,extended release 24 hr 120 mg PO DAILY #90 tab 01/29/21 [Rx Last Taken 02/06/22] sotalol 120 mg tablet 120 mg PO BID #180 tab 01/29/21 [Rx Last Taken 02/06/22] levetiracetam [Keppra] 500 mg PO BID #60 tab 04/19/21 [Rx Last Taken 02/06/22] budesonide-formoterol HFA 160 mcg-4.5 mcg/actuation aerosol inhaler 2 puff INHALATION BID #10.2 g 05/30/21 [Rx Last Taken 02/06/22] promethazine 25 mg PO Q6H PRN #20 tab 12/17/21 [Rx Last Taken 02/06/22] atorvastatin 80 mg tablet 80 mg PO QHS #90 tab 01/17/22 [Rx Last Taken 02/05/22] clopidogrel 75 mg tablet 75 mg PO DAILY #90 tab 01/17/22 [Rx Last Taken 02/06/22] ezetimibe 10 mg tablet 10 mg PO DAILY #90 tab 01/17/22 [Rx Last Taken 02/06/22] lisinopril 10 mg tablet 10 mg PO DAILY #90 tab 01/17/22 [Rx Last Taken 02/06/22] metoprolol succinate 100 mg tablet,extended release 24 hr 100 mg PO DAILY #90 tab 01/17/22 [Rx Last Taken 02/06/22] aripiprazole 2 mg PO QHS 02/06/22 [History Last Taken 02/05/22] metformin 1,000 mg PO BID 02/06/22 [History Last Taken 02/06/22] pantoprazole [Protonix] 40 mg PO BID #60 tab 02/09/22 [Rx Last Taken Unknown] sucralfate [Carafate] 1 g PO Q6H #120 tab 02/09/22 [Rx Last Taken Unknown] furosemide 20 mg PO DAILY 03/05/22 [History Last Taken Unknown] tramadol 50 mg PO Q6H PRN 03/05/22 [History Last Taken Unknown] amoxicillin-pot clavulanate 1 tab PO BID #10 tab 03/08/22 [Rx Last Taken Un known] magnesium chloride 64 mg PO DAILY #30 tab 03/08/22 [Rx Last Taken Unknown] spironolactone 25 mg PO DAILY 30 Days #30 tab 03/08/22 [Rx Last Taken Unknown] duloxetine 30 mg capsule,delayed release 30 mg PO QAM #30 cap 03/27/22 [Rx Last Taken Unknown] duloxetine 60 mg capsule,delayed release 60 mg PO QPM #30 cap 03/27/22 [Rx Last Taken Unknown] doxycycline monohydrate 100 mg PO BID #14 capsule 04/01/22 [Rx Last Taken Unknown] prednisone 10 mg PO UD #33 tab 04/01/22 [Rx Last Taken Unknown] Allergy/AdvReac Type Severity Reaction Status Date / Time seasonal Allergy SOB Uncoded 04/01/22 12:36 Family History Father CAD (coronary artery disease) COPD (chronic obstructive pulmonary disease) CHF (congestive heart failure) CVA (cerebral vascular accident) Mother COPD (chronic obstructive pulmonary disease) Other Neuropathy Surgical History H/O coronary artery bypass surgery (10/2005) History of coronary artery stent placement (01/05/14) History of left heart catheterization (12/20/20) History of loop recorder (2016) History of open reduction and internal fixation (ORIF) procedure Social History household members: significant other and other housing: house number of children: 2 Smoking Status: Current every day smoker tobacco type: cigarettes Electronic Cigarette Use: with nicotine second hand exposure: No alcohol intake: current alcohol intake frequency: 3 or more drinks per day Alcohol type: wine substance use type: marijuana caffeine: Yes Type: coffee what type of physical activity do you participate in: walking frequency: daily duration: < 15 minutes/day seatbelt use: always do you feel safe at home: Yes ROS ROS ED Constitutional Constitutional ED: Denies chills or fever(s) Eyes Eyes: Denies change in vision or diplopia ENT ENT ED: Denies rhinorrhea or sore throat Cardiovascular Cardiovascular: Reports chest pain; Denies palpitations Respiratory/Chest Respiratory/Chest: Reports cough, dyspnea and dyspnea on exertion Gastrointestinal Gastrointestinal: Denies abdominal pain, diarrhea, nausea or vomiting Genitourinary Genitourinary ED: Denies dysuria or hematuria Musculoskeletal Musculoskeletal: Reports back pain; Denies neck pain Integumentary Denies abscess or rash Neurologic Neurologic: Denies headache(s), paresthesias or weakness Psychiatric Psychiatric: Denies anxiety or suicidal thoughts EXAM Physical Exam Const Vital Signs: 04/01/22 12:34 04/01/22 14:06 04/01/22 14:45 Temperature 98 F Temperature Source Temporal Pulse Rate 89 92 78 Respiratory Rate 16 18 17 Respiratory Pattern Normal Blood Pressure 148/78 H 127/59 H Blood Pressure Mean 101 81 Pulse Ox 94 Oxygen Delivery Method Room Air Positive well nourished and well developed General Appearance ED: well developed and NAD HEENT Reports moist mucous membranes normocephalic and atraumatic Eyes PERRL and EOMs intact bilaterally Neck full ROM, no lymphadenopathy, supple, no meningeal signs and no JVD Resp normal respiratory effort and clear to auscultation bilaterally Resp Narrative: Diminished throughout, symmetrically, otherwise clear Effort and Inspection: able to speak in complete sentences Cardio regular rate, regular rhythm and no murmurs GI non-tender and non-distended Auscultation: normoactive bowel sounds Palpation: soft Back/Spine no CVA tenderness and normal to inspection Back/Spine Narrative: Mildly tender throughout rhomboids bilaterally. No spinal tenderness. General Back: other FROM Extremity normal to inspection General Extremety ED: Negative for edema, pulses abnormal or tenderness General Extremity: Negative for edema or pulses abnormal Neuro oriented x3, CN's II-XII intact bilaterally and no sensory deficits noted Sensorium / Orientation: awake and alert Motor Exam: strength 5/5 throughout Skin no rashes or lesions noted and no wounds MDM MDM MDM Narrative Medical decision making narrative: EKG shows chronic atrial flutter without any acute abnormality/injury pattern, similar to prior. His troponin is 25 which is well within normal limits, he has been having discomfort for 2 days straight, and the back pain has been for longer. I am comfortable telling him he is not likely having acute coronary syndrome, I had initially ordered him a nitro glycerin to see if that would help any of his discomfort since he said albuterol did not, but he declined it and then provided the history that he has been taking nitroglycerin off-and-on for the past several days without any improvement. He did feel better after the aerosols and requested something for his upper back, he was given 1 [place] but I do not think he needs a prescription for that. His clinical history and exam and ancillaries are all consistent with a COPD exacerbation from what is likely a viral illness, will prescribe him doxycycline to prevent bacterial superinfection, put him on some steroids, and advised that he follow-up closely as an outpatient. Lab Data Attestation: I reviewed the patient's lab results. Labs: Laboratory Results - last 24 hr 04/01/22 04/01/22 13:23 13:23 WBC 12.6 H RBC 3.38 L Hgb 9.7 L Hct 33.1 L MCV 97.9 H MCH 28.7 MCHC 29.3 L RDW Std Deviation 91.6 H RDW Coeff of Arleen 25.8 H Plt Count 273 MPV 9.7 Immature Gran % (Auto) 0.500 Neut % (Auto) 77.1 H Lymph % (Auto) 8.2 L [place] % (Auto) 11.5 H Eos % (Auto) 2.1 Baso % (Auto) 0.6 Absolute Neuts (auto) 9.7 H Absolute Lymphs (auto) 1.04 Nucleated RBC % 0.2 Anisocytosis 1+ Sodium 139 Potassium 3.3 L Chloride 101 Carbon Dioxide 33.0 H Anion Gap 5 BUN 10 Creatinine 0.88 Estim Creat Clear Calc 87.63 Est GFR (MDRD) Af Amer 116 Est GFR (MDRD) Non-Af 96 BUN/Creatinine Ratio 11.4 Glucose 115 H Calcium 8.8 Troponin I High Sens 25 Radiography Chest X-Ray - ED: 1 View, Read by ED Physician, No Acute Disease and Chronic Changes Diagnostic Testing: Clinical Impression(s) from Imaging Studies Chest X-Ray 04/01/22 13:34 IMPRESSION: Mild degree of persistent increased interstitial markings at the lung bases. There has been improved aeration of the right lung base as compared to prior study. Electronically Signed: Harry Voss MD at 14:08 EDT , EKG Initial EKG: Attestation: I personally reviewed and interpreted this EKG as follows: Interpretation: No Acute Injury Pattern, Atrial Flutter (3:1 conduction) and Non-Specific ST Changes (laterally) Prior EKG tracings: available for review (02/17/22) Prior: Unchanged Discharge Plan Triage Chief Complaint: Back ED Provider: Rico Duran Dx/Rx/DC Orders Clinical Impression: Chest pain, COPD exacerbation, Acute bronchitis, Acute upper back pain Instructions: ED COPD Flare Prescriptions: New prednisone 10 MG tablet 10 mg PO UD Qty: 33 RF: 0 doxycycline monohydrate 100 MG capsule 100 mg PO BID Qty: 14 RF: 0 No Action aspirin [Adult Aspirin Regimen] 81 mg tablet,delayed release (DR/EC) 81 mg PO DAILY RF: 0 Hold Instructions: Resume on 02/14/22. isosorbide mononitrate 120 mg tablet extended release 24 hr 120 mg PO DAILY Qty: 90 RF: 3 sotalol 120 mg tablet 120 mg PO BID Qty: 180 RF: 3 budesonide-formoterol 160-4.5 mcg/actuation HFA aerosol inhaler 2 puff INHALATION BID Qty: 10.2 RF: 5 gabapentin 600 MG tablet 1,200 mg PO TIDCM RF: 0 albuterol sulfate 2.5 MG/3 ML solution for nebulization 1 dose IH Q4H PRN PRN (Reason: Sob &/Or Wheezing) RF: 0 nitroglycerin 0.4 MG tablet, sublingual 0.4 mg sublingual PRN PRN (Reason: chest pain) RF: 0 albuterol sulfate 1 PUFF inhaler 2 puff INHALATION Q6H PRN PRN (Reason: Sob &/Or Wheezing) RF: 0 tamsulosin 0.4 MG capsule 0.4 mg PO DAILY@1730 RF: 0 insulin glargine 100 UNITS/ML insulin pen 10 units SC BREAKFAST RF: 0 levetiracetam [Keppra] 500 mg tablet 500 mg PO BID Qty: 60 RF: 0 promethazine 25 mg tablet 25 mg PO Q6H PRN (Reason: nausea) Qty: 20 RF: 0 metformin 1,000 mg tablet 1,000 mg PO BID RF: 0 aripiprazole 2 mg tablet 2 mg PO QHS RF: 0 sucralfate [Carafate] 1 gram tablet 1 g PO Q6H Qty: 120 RF: 0 pantoprazole [Protonix] 40 mg tablet,delayed release (DR/EC) 40 mg PO BID Qty: 60 RF: 0 furosemide 40 mg tablet 20 mg PO DAILY RF: 0 tramadol 50 mg Tablet 50 mg PO Q6H PRN (Reason: Pain) RF: 0 spironolactone 25 mg Tablet 25 mg PO DAILY 30 Days Qty: 30 RF: 0 amoxicillin-pot clavulanate 875-125 mg tablet 1 tab PO BID Qty: 10 RF: 0 magnesium chloride 64 mg tablet,delayed release (DR/EC) 64 mg PO DAILY Qty: 30 RF: 0 atorvastatin 80 mg tablet 80 mg PO QHS Qty: 90 RF: 3 clopidogrel 75 mg tablet 75 mg PO DAILY Qty: 90 RF: 3 Hold Instructions: Resume on 02/14/22. ezetimibe 10 mg tablet 10 mg PO DAILY Qty: 90 RF: 3 lisinopril 10 mg tablet 10 mg PO DAILY Qty: 90 RF: 3 metoprolol succinate 100 mg tablet extended release 24 hr 100 mg PO DAILY Qty: 90 RF: 3 duloxetine 30 mg capsule,delayed release(DR/EC) 30 mg PO QAM Qty: 30 RF: 0 duloxetine 60 mg capsule,delayed release(DR/EC) 60 mg PO QPM Qty: 30 RF: 0 Primary Care Provider: Blaze Louis Referrals: Blaze Louis MD [Primary Care Provider] - 5-7 Days Activity Restrictions/Additional Instructions: You can start antibiotic today but do not start the prednisone until tomorrow since we gave it to you in the ER for today. Disposition Disposition: Home, Self Care
--- NOTE | 2022-04-01 13:34 | RAD_ITS ---
STUDY: X-RAY CHEST REASON FOR EXAM: Male, 56 years old. Cough sob TECHNIQUE: Single AP portable view of the chest. COMPARISON: Comparison is made with prior study 03/27/2022. FINDINGS: Persistent mild increased interstitial markings at the lung bases. Improved aeration of the right infrahilar region. There is no demonstrated pleural abnormality. Sternal cerclage wires are present from a prior sternotomy. A loop recording device is seen overlying the left heart border. Normal mediastinum and ranjit. Normal visualized pulmonary arteries. There is atherosclerotic calcification of the aortic arch with tortuosity. Normal visualized thoracic spine. Normal visualized ribs, clavicles, and shoulders. There is no demonstrated abnormality of the visualized soft tissue structures of the upper abdomen. RAD/Chest 1 View (Portable) IMPRESSION: Mild degree of persistent increased interstitial markings at the lung bases. There has been improved aeration of the right lung base as compared to prior study. Electronically Signed: Harry Voss MD at 14:08 EDT ,
[2022-04-01 13:37] LABS: Absolute Lymphocyte Count 1.04 X10^3/uL (0.83-4.51); Absolute Neutrophil Count 9.7 X10^3/uL (2.0-7.7); Basophil# 0.08 X10^3/uL; Basophil% 0.6 % (0-1); Eosinophil# 0.27 X10^3/uL; Eosinophils% 2.1 % (0-5); Hematocrit 33.1 % (40-54); Hemoglobin 9.7 g/dL (13.0-16.5); Lymphocyte # 1.04 X10^3/ul (0.83-4.51); Lymphocyte % 8.2 % (19-41); Mean Corp Hgb Conc 29.3 g/dL (32-36); Mean Corpuscular Hgb 28.7 pg (27.0-32.0); Mean Corpuscular Volume 97.9 fL (80-94); Mean Platelet Vol. 9.7 fl (6.2-12.0); Monocyte# 1.45 X10^3/uL; Monocyte% 11.5 % (0-10); NRBC Flagged by Analyzer 0.2 % (0-5); Neutrophil # 9.72 X10^3/uL (2.7-7.7); Neutrophil % 77.1 % (47-70); POSITIVE MORPHOLOGY YES; Platelet Count 273 K/mm3 (150-450); RBC Distribution Width CV 25.8 % (11.6-14.6); RBC Distribution Width SD 91.6 fl (35.1-43.9); Red Blood Count 3.38 M/mm3 (4.6-6.2); White Blood Count 12.6 K/mm3 (4.4-11.0)
[2022-04-01 13:39] LABS: Differential Indicated SCAN CRITERIA MET
[2022-04-01] MEDS: Ipratropium/Albuterol Sulfate 3 ML AMPUL.NEB INHALATION (13:57)
[2022-04-01] MEDS: Albuterol 2.5 MG/3 ML VIAL.NEB. INHALATION (13:57)
[2022-04-01 13:58] LABS: Anion Gap 5 (5-15); BUN 10 mg/dL (7-18); BUN/Creat Ratio 11.4 RATIO (10-20); Calcium,Total 8.8 mg/dL (8.5-10.1); Chloride 101 mmol/L (98-107); Creatinine, Serum 0.88 mg/dL (0.70-1.30); EST Glomerular Filtration Rate 96 mL/min (>60); Est Glom Filt Rate - Afr Amer 116 mL/min (>60); Estimated Creatinine Clearance 87.63 ml/min; Glucose 115 mg/dL (74-106); Potassium 3.3 mmol/L (3.5-5.1); Sodium Level 139 mmol/L (136-145); Troponin-I HS 25 pg/mL (3.0-78.0)
[2022-04-01 14:01] LABS: Anisocytosis 1+
[2022-04-01 14:06] VITALS: PULSE 92; RESP 18
[2022-04-01 14:45] VITALS: BP 127/59; PULSE 78; RESP 17
[2022-04-01] MEDS: HYDROcodone Bitartrate/Apap 5/325 Tablet PO (15:14)
[2022-04-01 15:38] VITALS: RESP 19; O2SAT 97
[2022-04-01] MEDS: MethylPREDNISolone 125 MG/2 ML Vial IV (15:46)
--- NOTE | 2022-04-01 15:53 | ED.RN ---
THIS RN GAVE PT BELONGINGS FROM SECURITY
== END 2022-04-01 15:54 | disposition home or self-care (01) ==
PROVIDERS: Emergency Provider Emergency Medicine; PCP Family Medicine; Visit Provider Emergency Medicine
DX: R07.9 Chest pain, unspecified (principal); J44.1 Chronic obstructive pulmonary disease with (acute) exacerbation; J20.9 Acute bronchitis, unspecified; I25.10 Atherosclerotic heart disease of native coronary artery without angina pectoris; M54.9 Dorsalgia, unspecified; F17.210 Nicotine dependence, cigarettes, uncomplicated; G47.33 Obstructive sleep apnea (adult) (pediatric); F12.90 Cannabis use, unspecified, uncomplicated; Z95.5 Presence of coronary angioplasty implant and graft
CPT/HCPCS: 71045; 80048; 84484; 85025; 87428; 93005; 94640; 96374; 99285; A4216

== ENCOUNTER 2022-04-07 22:39 | Emergency (ER) | payer MEDICAID, SELFPAY ==
[2022-04-07 23:49] VITALS: PULSE 97; RESP 17; TEMP 36; O2SAT 98; BMI 29.9
[2022-04-07 23:52] VITALS: BP 111/99; PULSE 88; RESP 13; O2SAT 100
[2022-04-08] VITALS (14 sets, daily range): BP systolic 133–171; BP diastolic 62–116; PULSE 72–111; RESP 15–22; TEMP 36.7–36.9; O2SAT 93–99
--- NOTE | 2022-04-08 00:12 | EDS_ITS ---
HPI <Dr. 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 She told him that she was going to leave him. His response was suicidal threats. Police were called, and they documented that they witnessed the patient state I will just blow my brains now you guys will be called back out here, you will see, I have plenty of knives and guns to do that with. Upon evaluating the patient here, he is restrained with adni because he was agitated, uncooperative, and threatening staff as well as the police. He is more calm with me, saying that he is regretful about the whole situation and saying what he did, he states it was just idle threats, he has no intention of harming himself because he has 6 grandchildren and does not want to be gone for them. He admits to drinking alcohol geneva. He was injected with Geodon by EMS prior to arrival here due to physical aggressiveness toward them. PFSH <Dr. Rico Duran MD - Last Filed: 04/08/22 06:42> [facility] Medical History (HFpEF) heart failure with preserved ejection fraction Acute hypotension Acute repetitive seizure Atherosclerosis of coronary artery bypass graft without angina pectoris Atherosclerosis of coronary artery of [place] heart without angina pectoris Atrial fibrillation Chest wall contusion Chronic anticoagulation Chronic obstructive pulmonary disease CPAP (continuous positive airway pressure) dependence Diabetes mellitus Essential hypertension Fall from slip, trip, or stumble Fracture of rib Hyperlipidemia Hypertension Leg swelling Lower extremity edema Major depression Metatarsal bone fracture Myocardial infarct Nicotine abuse KENNETH and COPD overlap syndrome PAD (peripheral artery disease) Paroxysmal atrial fibrillation Rectal bleeding Secondary pulmonary arterial hypertension Sleep apnea Smoking greater than 40 pack years Stroke/cerebrovascular accident Suicidal ideation Syncope Typical atrial flutter Medical History unable to obtain Home Medications gabapentin 1,200 mg PO TIDCM 12/07/15 [History Last Taken 02/06/22] albuterol sulfate 1 dose IH Q4H PRN PRN 11/09/19 [History Last Taken 02/06/22] albuterol sulfate 2 puff INHALATION Q6H PRN PRN 11/09/19 [History Last Taken 02/05/22] nitroglycerin 0.4 mg SUBLINGUAL PRN PRN 11/09/19 [History Last Taken 02/06/22] aspirin 81 mg tablet,delayed release 81 mg PO DAILY 05/24/20 [History Last Taken 02/06/22] insulin glargine 10 units SC BREAKFAST 12/18/20 [History Last Taken 02/06/22] tamsulosin 0.4 mg PO DAILY@1730 12/18/20 [History Last Taken 02/05/22] isosorbide mononitrate 120 mg tablet,extended release 24 hr 120 mg PO DAILY #90 tab 01/29/21 [Rx Last Taken 02/06/22] sotalol 120 mg tablet 120 mg PO BID #180 tab 01/29/21 [Rx Last Taken 02/06/22] levetiracetam [Keppra] 500 mg PO BID #60 tab 04/19/21 [Rx Last Taken 02/06/22] budesonide-formoterol HFA 160 mcg-4.5 mcg/actuation aerosol inhaler 2 puff INHALATION BID #10.2 g 05/30/21 [Rx Last Taken 02/06/22] promethazine 25 mg PO Q6H PRN #20 tab 12/17/21 [Rx Last Taken 02/06/22] atorvastatin 80 mg tablet 80 mg PO QHS #90 tab 01/17/22 [Rx Last Taken 02/05/22] clopidogrel 75 mg tablet 75 mg PO DAILY #90 tab 01/17/22 [Rx Last Taken 02/06/22] ezetimibe 10 mg tablet 10 mg PO DAILY #90 tab 01/17/22 [Rx Last Taken 02/06/22] lisinopril 10 mg tablet 10 mg PO DAILY #90 tab 01/17/22 [Rx Last Taken 02/06/22] metoprolol succinate 100 mg tablet,extended release 24 hr 100 mg PO DAILY #90 tab 01/17/22 [Rx Last Taken 02/06/22] aripiprazole 2 mg PO QHS 02/06/22 [History Last Taken 02/05/22] metformin 1,000 mg PO BID 02/06/22 [History Last Taken 02/06/22] pantoprazole [Protonix] 40 mg PO BID #60 tab 02/09/22 [Rx Last Taken Unknown] sucralfate [Carafate] 1 g PO Q6H #120 tab 02/09/22 [Rx Last Taken Unknown] furosemide 20 mg PO DAILY 03/05/22 [History Last Taken Unknown] tramadol 50 mg PO Q6H PRN 03/05/22 [History Last Taken Unknown] amoxicillin-pot clavulanate 1 tab PO BID #10 tab 03/08/22 [Rx Last Taken Unknown] magnesium chloride 64 mg PO DAILY #30 tab 03/08/22 [Rx Last Taken Unknown] spironolactone 25 mg PO DAILY 30 Days #30 tab 03/08/22 [Rx Last Taken Unknown] duloxetine 30 mg capsule,delayed release 30 mg PO QAM #30 cap 03/27/22 [Rx Last Taken Unknown] duloxetine 60 mg capsule,delayed release 60 mg PO QPM #30 cap 03/27/22 [Rx Last Taken Unknown] doxycycline monohydrate 100 mg PO BID #14 capsule 04/01/22 [Rx Last Taken Unknown] prednisone 10 mg PO UD #33 tab 04/01/22 [Rx Last Taken Unknown] Allergy/AdvReac Type Severity Reaction Status Date / Time seasonal Allergy SOB Uncoded 04/01/22 12:36 Family History Father CAD (coronary artery disease) COPD (chronic obstructive pulmonary disease) CHF (congestive heart failure) CVA (cerebral vascular accident) Mother COPD (chronic obstructive pulmonary disease) Other Neuropathy Surgical History H/O coronary artery bypass surgery (10/2005) History of coronary artery stent placement (01/05/14) History of left heart catheterization (12/20/20) History of loop recorder (2015) History of open reduction and internal fixation (ORIF) procedure Social History household members: significant other and other housing: house number of children: 2 Smoking Status: Current every day smoker tobacco type: cigarettes Electronic Cigarette Use: with nicotine second hand exposure: No alcohol intake: current alcohol intake frequency: 3 or more drinks per day Alcohol type: wine substance use type: marijuana caffeine: Yes Type: coffee what type of physical activity do you participate in: walking frequency: daily duration: < 15 minutes/day seatbelt use: always do you feel safe at home: Yes ROS <Dr. Rico Duran MD - Last Filed: 04/08/22 06:42> ROS ED Constitutional Constitutional ED: Denies chills or fever(s) Eyes Eyes: Denies change in vision or diplopia ENT ENT ED: Denies rhinorrhea or sore throat Cardiovascular Cardiovascular: Denies chest pain or palpitations Respiratory/Chest Respiratory/Chest: Denies cough or dyspnea Gastrointestinal Gastrointestinal: Denies abdominal pain, diarrhea, nausea or vomiting Genitourinary Genitourinary ED: Denies dysuria or hematuria Musculoskeletal Musculoskeletal: Denies back pain or neck pain Integumentary Denies abscess or rash Neurologic Neurologic: Denies headache(s), paresthesias or weakness Psychiatric Psychiatric: Reports suicidal thoughts; Denies homicidal ideation or suicidal ideation EXAM <Dr. Rico Duran MD - Last Filed: 04/08/22 06:42> Physical Exam Const Vital Signs: 04/07/22 23:49 04/07/22 23:52 04/08/22 00:10 Temperature 96.8 F L Temperature Source Temporal Pulse Rate 97 88 86 Respiratory Rate 17 13 16 Respiratory Pattern Blood Pressure 111/99 H Blood Pressure Mean 103 Pulse Ox 98 100 96 Oxygen Delivery Method Room Air Room Air Oxygen Flow Rate (L/min) 04/08/22 02:03 04/08/22 03:24 04/08/22 04:02 Temperature 98.4 F Temperature Source Temporal Pulse Rate 89 78 Respiratory Rate 18 17 Respiratory Pattern Blood Pressure 133/62 H 136/80 H Blood Pressure Mean 85 98 Pulse Ox 97 96 99 Oxygen Delivery Method Room Air Room Air Room Air Oxygen Flow Rate (L/min) 04/08/22 04:23 04/08/22 04:34 04/08/22 04:44 Temperature Temperature Source Pulse Rate 111 H 108 H 100 Respiratory Rate 16 16 17 Respiratory Pattern Normal Blood Pressure 150/78 H 171/116 H Blood Pressure Mean 102 134 Pulse Ox 93 94 Oxygen Delivery Method Nasal Cannula Nasal Cannula Oxygen Flow Rate (L/min) 3.5 3.5 04/08/22 04:50 04/08/22 05:18 04/08/22 06:11 Temperature 98.2 F Temperature Source Temporal Pulse Rate 78 100 Respiratory Rate 17 17 Respiratory Pattern Blood Pressure 148/82 H 165/89 H Blood Pressure Mean 104 114 Pulse Ox 96 96 96 Oxygen Delivery Method Nasal Cannula Room Air Nasal Cannula Oxygen Flow Rate (L/min) 3.5 3.5 04/08/22 06:12 04/08/22 06:52 04/08/22 07:47 Temperature 98.1 F Temperature Source Temporal Pulse Rate 100 82 Respiratory Rate 22 H 19 H 16 Respiratory Pattern Blood Pressure 138/72 H Blood Pressure Mean 94 Pulse Ox 94 97 Oxygen Delivery Method Nasal Cannula Room Air Oxygen Flow Rate (L/min) 3.5 04/08/22 09:21 Temperature Temperature Source Pulse Rate 72 Respiratory Rate 15 Respiratory Pattern Blood Pressure 138/69 H Blood Pressure Mean 92 Pulse Ox 97 Oxygen Delivery Method Room Air Oxygen Flow Rate (L/min) Positive well nourished and well developed General Appearance ED: well developed and NAD HEENT Reports moist mucous membranes normocephalic and atraumatic Eyes PERRL and EOMs intact bilaterally General Eye ED: Negative for scleral icterus Neck no lymphadenopathy and supple Resp normal respiratory effort and clear to auscultation bilaterally Cardio no murmurs Rate: regular rate Rhythm: regular rhythm GI non-tender and non-distended Auscultation: normoactive bowel sounds Palpation: soft Back/Spine no CVA tenderness and normal ROM Extremity normal to inspection General Extremety ED: Negative for edema General Extremity: Negative for edema Neuro oriented x3, CN's II-XII intact bilaterally, no sensory deficits noted and gait normal Sensorium / Orientation: alert Motor Exam: strength 5/5 throughout Psych mental status grossly normal, thought process normal, cooperative, activity/motor behavior normal, denies homicidal ideation and denies suicidal ideation Psych Narrative: Appears possibly intoxicated Skin Lesions: no lesions Rashes: no rashes <Dr. Jayden Lemus, DO - Last Filed: 04/08/22 10:07> Physical Exam Const Vital Signs: 04/07/22 23:49 04/07/22 23:52 04/08/22 00:10 Temperature 96.8 F L Temperature Source Temporal Pulse Rate 97 88 86 Respiratory Rate 17 13 16 Respiratory Pattern Blood Pressure 111/99 H Blood Pressure Mean 103 Pulse Ox 98 100 96 Oxygen Delivery Method Room Air Room Air Oxygen Flow Rate (L/min) 04/08/22 02:03 04/08/22 03:24 04/08/22 04:02 Temperature 98.4 F Temperature Source Temporal Pulse Rate 89 78 Respiratory Rate 18 17 Respiratory Pattern Blood Pressure 133/62 H 136/80 H Blood Pressure Mean 85 98 Pulse Ox 97 96 99 Oxygen Delivery Method Room Air Room Air Room Air Oxygen Flow Rate (L/min) 04/08/22 04:23 04/08/22 04:34 04/08/22 04:44 Temperature Temperature Source Pulse Rate 111 H 108 H 100 Respiratory Rate 16 16 17 Respiratory Pattern Normal Blood Pressure 150/78 H 171/116 H Blood Pressure Mean 102 134 Pulse Ox 93 94 Oxygen Delivery Method Nasal Cannula Nasal Cannula Oxygen Flow Rate (L/min) 3.5 3.5 04/08/22 04:50 04/08/22 05:18 04/08/22 06:11 Temperature 98.2 F Temperature Source Temporal Pulse Rate 78 100 Respiratory Rate 17 17 Respiratory Pattern Blood Pressure 148/82 H 165/89 H Blood Pressure Mean 104 114 Pulse Ox 96 96 96 Oxygen Delivery Method Nasal Cannula Room Air Nasal Cannula Oxygen Flow Rate (L/min) 3.5 3.5 04/08/22 06:12 04/08/22 06:52 04/08/22 07:47 Temperature 98.1 F Temperature Source Temporal Pulse Rate 100 82 Respiratory Rate 22 H 19 H 16 Respiratory Pattern Blood Pressure 138/72 H Blood Pressure Mean 94 Pulse Ox 94 97 Oxygen Delivery Method Nasal Cannula Room Air Oxygen Flow Rate (L/min) 3.5 04/08/22 09:21 Temperature Temperature Source Pulse Rate 72 Respiratory Rate 15 Respiratory Pattern Blood Pressure 138/69 H Blood Pressure Mean 92 Pulse Ox 97 Oxygen Delivery Method Room Air Oxygen Flow Rate (L/min) MDM <Dr. Rico Duran MD - Last Filed: 04/08/22 06:42> [facility] MDM Narrative Medical decision making narrative: Patient refused blood draw, and was not verbally aggressive towards staff. Therefore nurses continued to keep him in restraints, concern for their safety for getting blood work prior to crisis evaluation. The patient continued to yell and call staff names. He then was chewing on the EKG wires despite repeated verbal redirection. At this point I spoke with the patient and asked him to stop doing these things, if he would let us draw his blood and be more cooperative then his visit here could be a lot shorter and less complicated. He called me choice names and continued to yell so I thought it was appropriate to administer him a dose of Geodon yet again. Gradually over hours patient calmed down the became closer to clinically sober, nursing were able to draw his blood with his consent and not fighting them, and they were able to gradually and safely get him out of restraints. Once we got his alcohol level back, it was 125, patient was observed calm away and cooperatively. Plan is to have crisis evaluate him in the morning after the community facilitator once his alcohol level is down to a level where they are comfortable interviewing him. Lab Data Labs: Laboratory Results - last 24 hr 04/08/22 04/08/22 04/08/22 00:03 03:15 08:13 Urine Opiates Screen POSITIVE H Urine Methadone Screen NEGATIVE Ur Barbiturates Screen NEGATIVE Ur Phencyclidine Scrn NEGATIVE Ur Amphetamines Screen NEGATIVE MDMA (Ecstasy) Screen NEGATIVE U Benzodiazepines Scrn NEGATIVE Urine Cocaine Screen NEGATIVE U Cannabinoids Screen POSITIVE H Ur Drug Screen Comment Ethyl Alcohol 125.0 7.0 POC Glucose 04/08/22 08:58 Urine Opiates Screen Urine Methadone Screen Ur Barbiturates Screen Ur Phencyclidine Scrn Ur Amphetamines Screen MDMA (Ecstasy) Screen U Benzodiazepines Scrn Urine Cocaine Screen U Cannabinoids Screen Ur Drug Screen Comment Ethyl Alcohol POC Glucose 145 H <Dr. Jayden Lemus, DO - Last Filed: 04/08/22 10:07> [facility] MDM Narrative Medical decision making narrative: 1000: Patient signed out to me on repeat alcohol level with more clinically stable. Evaluated feels alcohol related with anger. He has no threatening suicidal thoughts at this time. He knows it was wrong. Crisis feel he can go home. Discussed with the patient he is more alert and states he should not made those comments. He will be follow-up with crisis as an outpatient. All questions were answered. Lab Data Labs: Laboratory Results - last 24 hr 04/08/22 04/08/22 04/08/22 00:03 03:15 08:13 Urine Opiates Screen POSITIVE H Urine Methadone Screen NEGATIVE Ur Barbiturates Screen NEGATIVE Ur Phencyclidine Scrn NEGATIVE Ur Amphetamines Screen NEGATIVE MDMA (Ecstasy) Screen NEGATIVE U Benzodiazepines Scrn NEGATIVE Urine Cocaine Screen NEGATIVE U Cannabinoids Screen POSITIVE H Ur Drug Screen Comment Ethyl Alcohol 125.0 7.0 POC Glucose 04/08/22 08:58 Urine Opiates Screen Urine Methadone Screen Ur Barbiturates Screen Ur Phencyclidine Scrn Ur Amphetamines Screen MDMA (Ecstasy) Screen U Benzodiazepines Scrn Urine Cocaine Screen U Cannabinoids Screen Ur Drug Screen Comment Ethyl Alcohol POC Glucose 145 H Discharge Plan Triage Chief Complaint: Suicidal ED Provider: Rico Duran Dx/Rx/DC Orders Clinical Impression: Threatening suicide, Alcohol intoxication, Psychomotor agitation Instructions: Recognizing Suicide Warning ... Prescriptions: No Action aspirin [Adult Aspirin Regimen] 81 mg tablet,delayed release (DR/EC) 81 mg PO DAILY RF: 0 Hold Instructions: Resume on 02/14/22. isosorbide mononitrate 120 mg tablet extended release 24 hr 120 mg PO DAILY Qty: 90 RF: 3 sotalol 120 mg tablet 120 mg PO BID Qty: 180 RF: 3 budesonide-formoterol 160-4.5 mcg/actuation HFA aerosol inhaler 2 puff INHALATION BID Qty: 10.2 RF: 5 gabapentin 600 MG tablet 1,200 mg PO TIDCM RF: 0 albuterol sulfate 2.5 MG/3 ML solution for nebulization 1 dose IH Q4H PRN PRN (Reason: Sob &/Or Wheezing) RF: 0 nitroglycerin 0.4 MG tablet, sublingual 0.4 mg sublingual PRN PRN (Reason: chest pain) RF: 0 albuterol sulfate 1 PUFF inhaler 2 puff INHALATION Q6H PRN PRN (Reason: Sob &/Or Wheezing) RF: 0 tamsulosin 0.4 MG capsule 0.4 mg PO DAILY@1730 RF: 0 insulin glargine 100 UNITS/ML insulin pen 10 units SC BREAKFAST RF: 0 levetiracetam [Keppra] 500 mg tablet 500 mg PO BID Qty: 60 RF: 0 promethazine 25 mg tablet 25 mg PO Q6H PRN (Reason: nausea) Qty: 20 RF: 0 metformin 1,000 mg tablet 1,000 mg PO BID RF: 0 aripiprazole 2 mg tablet 2 mg PO QHS RF: 0 sucralfate [Carafate] 1 gram tablet 1 g PO Q6H Qty: 120 RF: 0 pantoprazole [Protonix] 40 mg tablet,delayed release (DR/EC) 40 mg PO BID Qty: 60 RF: 0 furosemide 40 mg tablet 20 mg PO DAILY RF: 0 tramadol 50 mg Tablet 50 mg PO Q6H PRN (Reason: Pain) RF: 0 spironolactone 25 mg Tablet 25 mg PO DAILY 30 Days Qty: 30 RF: 0 amoxicillin-pot clavulanate 875-125 mg tablet 1 tab PO BID Qty: 10 RF: 0 magnesium chloride 64 mg tablet,delayed release (DR/EC) 64 mg PO DAILY Qty: 30 RF: 0 prednisone 10 MG tablet 10 mg PO UD Qty: 33 RF: 0 doxycycline monohydrate 100 MG capsule 100 mg PO BID Qty: 14 RF: 0 atorvastatin 80 mg tablet 80 mg PO QHS Qty: 90 RF: 3 clopidogrel 75 mg tablet 75 mg PO DAILY Qty: 90 RF: 3 Hold Instructions: Resume on 02/14/22. ezetimibe 10 mg tablet 10 mg PO DAILY Qty: 90 RF: 3 lisinopril 10 mg tablet 10 mg PO DAILY Qty: 90 RF: 3 metoprolol succinate 100 mg tablet extended release 24 hr 100 mg PO DAILY Qty: 90 RF: 3 duloxetine 30 mg capsule,delayed release(DR/EC) 30 mg PO QAM Qty: 30 RF: 0 duloxetine 60 mg capsule,delayed release(DR/EC) 60 mg PO QPM Qty: 30 RF: 0 Primary Care Provider: Blaze Louis Referrals: Counseling,Center [GROUP OF PHYSICIANS] - As soon as possible Blaze Louis MD [Primary Care Provider] - Activity Restrictions/Additional Instructions: Crisis will follow with you. Disposition Disposition: Home, Self Care
[2022-04-08 00:39] LABS: Amphetamine Urine VISTA NEGATIVE (<1000 ng/mL); Barbiturate Urine VISTA NEGATIVE (< 200 ng/mL); Benzodiazepine Urine VISTA NEGATIVE (< 200 ng/mL); Cocaine Urine VISTA NEGATIVE (< 300 ng/mL); Ecstacy Urine VISTA NEGATIVE (< 500 ng/mL); Methadone Urine VISTA NEGATIVE (< 300 ng/mL); PCP Urine VISTA NEGATIVE (< 25 ng/mL); THC Urine VISTA POSITIVE (< 50 ng/mL); Vista UDS pH Range 4
[2022-04-08] MEDS: Ziprasidone IM 20 MG/ML VIAL IM (02:04)
--- NOTE | 2022-04-08 02:05 | ED.RN ---
patient was given 20mg IM of geodon. 2 orders were placed but a total of 20mg were given.
--- NOTE | 2022-04-08 02:07 | ED.RN ---
Tonya and Blaze will fix the waste done on 10mg geodon as patiet ended up getting the full 20mg and not 10mg.
--- NOTE | 2022-04-08 02:17 | NURSING ---
patient requested this nurse call Nely. She did not answer. Did not leave message as it is after 2am.
--- NOTE | 2022-04-08 04:26 | NURSING ---
Respiratory called for breathing treatment for dyspnea
[2022-04-08] MEDS: Albuterol 2.5 MG/3 ML VIAL.NEB. INHALATION (04:31)
--- NOTE | 2022-04-08 08:52 | ED.RN ---
EPIFANIO WITH CRISIS WILL BE OVER IN ETA 30 MINUTES TO EVALUATE PT
[2022-04-08 09:00] LABS: Bedside Glucose 145 mg/dL (74-106)
--- NOTE | 2022-04-08 09:28 | NURSING ---
CRISIS HERE TO SEE THE PT
[2022-04-08] MEDS: Gabapentin 600 MG Tablet 1200 MG PO (09:45)
== END 2022-04-08 10:16 | disposition home or self-care (01) ==
PROVIDERS: Emergency Provider Emergency Medicine; PCP Family Medicine; Visit Provider Emergency Medicine
DX: R45.851 Suicidal ideations (principal); F10.129 Alcohol abuse with intoxication, unspecified; I25.10 Atherosclerotic heart disease of native coronary artery without angina pectoris; F17.210 Nicotine dependence, cigarettes, uncomplicated; G47.33 Obstructive sleep apnea (adult) (pediatric); I25.2 Old myocardial infarction; F12.90 Cannabis use, unspecified, uncomplicated; Z86.73 Personal history of transient ischemic attack (TIA), and cerebral infarction without residual deficits; Z95.5 Presence of coronary angioplasty implant and graft
CPT/HCPCS: 36415; 80307; 82077; 82962; 94640; 96372; 99285; A4216; J3486

== ENCOUNTER 2022-04-24 12:32 | Emergency (ER) | payer MEDICAID, SELFPAY ==
[2022-04-24 12:33] VITALS: BP 127/74; PULSE 88; RESP 24; TEMP 37.1; O2SAT 99; BMI 30.9
[2022-04-24 12:36] VITALS: BP 127/74; PULSE 88; RESP 24; TEMP 37.1; O2SAT 99
--- NOTE | 2022-04-24 12:43 | RAD_ITS ---
STUDY: X-RAY CHEST REASON FOR EXAM: Male, 56 years old. chest pain TECHNIQUE: Single AP portable view of the chest. COMPARISON: 04/01/2022 FINDINGS: Status post median sternotomy. Alveolar opacity in the lower right lung consistent with right lower lobe pneumonia. Tiny right pleural effusion. There is moderate cardiac enlargement. Normal mediastinum and ranjit. Normal visualized pulmonary arteries. Normal visualized aortic arch and descending thoracic aorta. Normal visualized thoracic spine. Normal visualized ribs, clavicles, and shoulders. There is no demonstrated abnormality of the visualized soft tissue structures of the upper abdomen. RAD/Chest 1 View (Portable) IMPRESSION: Right lower lobe pneumonia with a tiny right pleural effusion. Electronically Signed: Holden Mckeon MD at 13:20 EDT ,
--- NOTE | 2022-04-24 12:43 | EKG12_ITS ---
Test Reason : CP Blood Pressure : / mmHG Vent. Rate : 092 BPM Atrial Rate : 300 BPM P-R Int : 000 ms QRS Dur : 078 ms QT Int : 418 ms P-R-T Axes : 000 059 117 degrees QTc Int : 516 ms Atrial flutter with variable A-V block Nonspecific T wave abnormality Prolonged QT Abnormal ECG Confirmed by JHON LOMELI, SMITA ([id number]), writer editor GERDA BEACH ([id number]) on 04/25/2022 10:18:01 AM Referred By: SANDEEP Confirmed By:SMITA FERREIRA MD
[2022-04-24 12:46] VITALS: O2SAT 96
[2022-04-24 12:55] LABS: Absolute Lymphocyte Count 1.22 X10^3/uL (0.83-4.51); Absolute Neutrophil Count 9.1 X10^3/uL (2.0-7.7); Basophil# 0.07 X10^3/uL; Basophil% 0.6 % (0-1); Eosinophil# 0.29 X10^3/uL; Eosinophils% 2.4 % (0-5); Hematocrit 29.2 % (40-54); Hemoglobin 8.3 g/dL (13.0-16.5); Lymphocyte # 1.22 X10^3/ul (0.83-4.51); Lymphocyte % 10.1 % (19-41); Mean Corp Hgb Conc 28.4 g/dL (32-36); Mean Corpuscular Hgb 28.3 pg (27.0-32.0); Mean Corpuscular Volume 99.7 fL (80-94); Mean Platelet Vol. 10.1 fl (6.2-12.0); Monocyte# 1.26 X10^3/uL; Monocyte% 10.5 % (0-10); NRBC Flagged by Analyzer 0.7 % (0-5); Neutrophil # 9.12 X10^3/uL (2.7-7.7); Neutrophil % 75.8 % (47-70); POSITIVE MORPHOLOGY YES; Platelet Count 289 K/mm3 (150-450); RBC Distribution Width CV 22.2 % (11.6-14.6); RBC Distribution Width SD 79.7 fl (35.1-43.9); Red Blood Count 2.93 M/mm3 (4.6-6.2)
[2022-04-24 12:58] LABS: Differential Indicated SCAN CRITERIA MET
[2022-04-24 13:10] LABS: Anion Gap 9 (5-15); BUN 15 mg/dL (7-18); BUN/Creat Ratio 17.6 RATIO (10-20); Calcium,Total 9.6 mg/dL (8.5-10.1); Chloride 103 mmol/L (98-107); Creatinine, Serum 0.85 mg/dL (0.70-1.30); EST Glomerular Filtration Rate 99 mL/min (>60); Est Glom Filt Rate - Afr Amer 119 mL/min (>60); Estimated Creatinine Clearance 90.73 ml/min; Glucose 103 mg/dL (74-106); Potassium 3.8 mmol/L (3.5-5.1); Sodium Level 140 mmol/L (136-145); Troponin-I HS (w/2H Reflex) 23 pg/mL (3.0-78.0)
[2022-04-24 13:19] LABS: Anisocytosis 2+; Differential Comment SCANNED; Macrocytosis 1+; Microcytosis 1+
--- NOTE | 2022-04-24 13:31 | CT_ITS ---
INDICATION: dissection study EXAMINATION: CTA CHEST, ABDOMEN AND PELVIS WITH CONTRAST - TECHNIQUE: A CTA of the chest, abdomen, and pelvis is obtained with sagittal and coronal reconstructed MIP views. Three-dimensional surface rendered sequence of the thoracic and abdominal aorta was obtained. A radiation dose optimization technique was used for this scan. mL of Isovue-[id number]. Oral contrast: None. COMPARISON: 03/05/2022 FINDINGS: CT CHEST: THORACIC AORTA: No atheromatous disease, no aneurysmal changes or dissection. ABDOMINAL AORTA: No aneurysm or dissection. No significant atheromatous disease. The iliac arteries are unremarkable. Status post median sternotomy. LUNGS: The lungs are well-expanded without acute or chronic changes. Moderate right pleural effusion and small left pleural effusion.. MEDIASTINUM: The thyroid gland is normal. No mediastinal or hilar adenopathy. HEART: Heart is normal size. No pericardial effusion. No CAD. CT ABDOMEN AND PELVIS: LIVER: The liver enhances homogeneously. No masses identified. GALLBLADDER: The CBD is normal. Normal gallbladder. SPLEEN: Normal. PANCREAS: No masses or inflammation. ADRENAL GLANDS: MM of the right adrenal gland. KIDNEYS AND URETERS: The kidneys both enhance appropriately. There are normal size and shape. No hydronephrosis or nephrolithiasis. 4.5 cm cyst in the lower pole of left kidney. STOMACH: Normal. SMALL BOWEL: No abnormal distention of the small bowel. MESENTERY: No mesenteric inflammation. No ascites. COLON: No significant diverticulosis, masses or inflammation. The colon otherwise is normal. There is a large fatty ileocecal valve. APPENDIX: The appendix is visualized and normal. IVC: Normal. RETROPERITONEUM: No retroperitoneal lymphadenopathy. PELVIC STRUCTURES: Normal bladder. SOFT TISSUES ABDOMEN: The anterior abdominal wall is normal. SOFT TISSUE CHEST: The extrathoracic soft tissues are normal. BONES: No fractures or significant degenerative disease. CT/CTA Chst, Abd, Pel W and/or WO IMPRESSION: Moderate right pleural effusion and small left pleural effusion. No CT evidence of aortic dissection. No change in right adrenal adenoma. Electronically Signed: Holden Mckeon MD at 14:37 EDT ,
--- NOTE | 2022-04-24 13:32 | EDS_ITS ---
HPI History of Present Illness Chief Complaint: Chest Pain Narrative Narrative: 56-year-old male with history of COPD, pulmonary hypertension, paroxysmal atrial fibrillation, CAD with cardiac stents presenting with chest pain which is described as retrosternal and radiates to the back. He describes a ripping tearing sensation. Patient states this has been going on for about 2 weeks. He was seen in emergency room previously and diagnosed with pneumonia. He denies fever or chills. He states he was on an antibiotic but does not know what. He was on steroids as well. Patient states that he followed up with his primary care physician today and was sent to the emergency room again for evaluation. [facility] Medical History (HFpEF) heart failure with preserved ejection fraction Acute hypotension Acute repetitive seizure Atherosclerosis of coronary artery bypass graft without angina pectoris Atherosclerosis of coronary artery of [place] heart without angina pectoris Atrial fibrillation Chest wall contusion Chronic anticoagulation Chronic obstructive pulmonary disease CPAP (continuous positive airway pressure) dependence Diabetes mellitus Essential hypertension Fall from slip, trip, or stumble Fracture of rib Hyperlipidemia Hypertension Leg swelling Lower extremity edema Major depression Metatarsal bone fracture Myocardial infarct Nicotine abuse KENNETH and COPD overlap syndrome PAD (peripheral artery disease) Paroxysmal atrial fibrillation Rectal bleeding Secondary pulmonary arterial hypertension Sleep apnea Smoking greater than 40 pack years Stroke/cerebrovascular accident Suicidal ideation Syncope Typical atrial flutter Home Medications gabapentin 1,200 mg PO TIDCM 12/07/15 [History Last Taken 02/06/22] albuterol sulfate 1 dose IH Q4H PRN PRN 11/09/19 [History Last Taken 02/06/22] albuterol sulfate 2 puff INHALATION Q6H PRN PRN 11/09/19 [History Last Taken 02/05/22] nitroglycerin 0.4 mg SUBLINGUAL PRN PRN 11/09/19 [History Last Taken 04/24/22] aspirin 81 mg tablet,delayed release 81 mg PO DAILY 05/24/20 [History Last Taken 02/06/22] insulin glargine 10 units SC BREAKFAST 12/18/20 [History Last Taken 02/06/22] tamsulosin 0.4 mg PO DAILY@1730 12/18/20 [History Last Taken 02/05/22] isosorbide mononitrate 120 mg tablet,extended release 24 hr 120 mg PO DAILY #90 tab 01/29/21 [Rx Last Taken 02/06/22] sotalol 120 mg tablet 120 mg PO BID #180 tab 01/29/21 [Rx Last Taken 02/06/22] levetiracetam [Keppra] 500 mg PO BID #60 tab 04/19/21 [Rx Last Taken 02/06/22] budesonide-formoterol HFA 160 mcg-4.5 mcg/actuation aerosol inhaler 2 puff INHALATION BID #10.2 g 05/30/21 [Rx Last Taken 02/06/22] promethazine 25 mg PO Q6H PRN #20 tab 12/17/21 [Rx Last Taken 02/06/22] atorvastatin 80 mg tablet 80 mg PO QHS #90 tab 01/17/22 [Rx Last Taken 02/05/22] clopidogrel 75 mg tablet 75 mg PO DAILY #90 tab 01/17/22 [Rx Last Taken 02/06/22] ezetimibe 10 mg tablet 10 mg PO DAILY #90 tab 01/17/22 [Rx Last Taken 02/06/22] lisinopril 10 mg tablet 10 mg PO DAILY #90 tab 01/17/22 [Rx Last Taken 02/06/22] metoprolol succinate 100 mg tablet,extended release 24 hr 100 mg PO DAILY #90 tab 01/17/22 [Rx Last Taken 02/06/22] aripiprazole 2 mg PO QHS 02/06/22 [History Last Taken 02/05/22] metformin 1,000 mg PO BID 02/06/22 [History Last Taken 02/06/22] pantoprazole [Protonix] 40 mg PO BID #60 tab 02/09/22 [Rx Last Taken Unknown] sucralfate [Carafate] 1 g PO Q6H #120 tab 02/09/22 [Rx Last Taken Unknown] furosemide 20 mg PO DAILY 03/05/22 [History Last Taken Unknown] tramadol 50 mg PO Q6H PRN 03/05/22 [History Last Taken Unknown] amoxicillin-pot clavulanate 1 tab PO BID #10 tab 03/08/22 [Rx Last Taken Unknown] magnesium chloride 64 mg PO DAILY #30 tab 03/08/22 [Rx Last Taken Unknown] spironolactone 25 mg PO DAILY 30 Days #30 tab 03/08/22 [Rx Last Taken Unknown] duloxetine 60 mg capsule,delayed release 60 mg PO QPM #30 cap 03/27/22 [Rx Last Taken Unknown] doxycycline monohydrate 100 mg PO BID #14 capsule 04/01/22 [Rx Last Taken Unknown] prednisone 10 mg PO UD #33 tab 04/01/22 [Rx Last Taken Unknown] duloxetine 30 mg capsule,delayed release 30 mg PO QAM #30 cap 04/21/22 [Rx Last Taken Unknown] Allergy/AdvReac Type Severity Reaction Status Date / Time seasonal Allergy SOB Uncoded 04/24/22 12:41 Family History Father CAD (coronary artery disease) COPD (chronic obstructive pulmonary disease) CHF (congestive heart failure) CVA (cerebral vascular accident) Mother COPD (chronic obstructive pulmonary disease) Other Neuropathy Surgical History H/O coronary artery bypass surgery (10/2005) History of coronary artery stent placement (01/05/14) History of left heart catheterization (12/20/20) History of loop recorder (2015) History of open reduction and internal fixation (ORIF) procedure Social History household members: significant other and other housing: house number of children: 2 Smoking Status: Current every day smoker tobacco type: cigarettes Electronic Cigarette Use: with nicotine second hand exposure: No alcohol intake: current alcohol intake frequency: 3 or more drinks per day Alcohol type: wine substance use type: marijuana caffeine: Yes Type: coffee what type of physical activity do you participate in: walking frequency: daily duration: < 15 minutes/day seatbelt use: always do you feel safe at home: Yes ROS ROS ED Constitutional Constitutional ED: Denies chills or fever(s) Eyes Eyes: Denies blurry vision or change in vision ENT ENT ED: Denies rhinorrhea or sore throat Cardiovascular Cardiovascular: Reports as per HPI and chest pain Respiratory/Chest Respiratory/Chest: Reports cough and dyspnea; Denies dyspnea on exertion Gastrointestinal Gastrointestinal: Denies abdominal pain, diarrhea, nausea or vomiting Genitourinary Genitourinary ED: Denies dysuria or hematuria Musculoskeletal Musculoskeletal: Denies myalgias Integumentary Denies rash Neurologic Neurologic: Denies headache(s) Psychiatric Psychiatric: Denies anxiety or depression EXAM Physical Exam Const Vital Signs: 04/24/22 12:33 04/24/22 12:36 04/24/22 12:38 Temperature 98.7 F 98.7 F Temperature Source Oral Oral Pulse Rate 88 88 Respiratory Rate 24 H 24 H Respiratory Effort Short of Breath Blood Pressure 127/74 H 127/74 H Blood Pressure Mean 91 91 Pulse Ox 99 99 Oxygen Delivery Method Nasal Cannula Nasal Cannula Oxygen Flow Rate (L/min) 3 3 04/24/22 12:46 04/24/22 14:50 Temperature Temperature Source Pulse Rate 86 Respiratory Rate 19 H Respiratory Effort Blood Pressure 108/57 L Blood Pressure Mean 74 Pulse Ox 96 94 Oxygen Delivery Method Nasal Cannula Nasal Cannula Oxygen Flow Rate (L/min) 3 4 Positive well nourished General Appearance ED: NAD; Negative for pallor HEENT Reports moist mucous membranes normocephalic and atraumatic Eyes PERRL and EOMs intact bilaterally Chest Wall inspection of chest normal Resp normal respiratory effort and clear to auscultation bilaterally Cardio regular rate and regular rhythm GI normal to inspection, nondistended, normoactive bowel sounds Neuro oriented x3 and CN's II-XII intact bilaterally Sensorium / Orientation: awake and alert Motor Exam: strength 5/5 throughout Psych mental status grossly normal Skin no rashes or lesions noted General Skin Exam: Negative for jaundice or pallor Heart Score History: Slightly/Non-Suspicious ECG: Normal Age: >45 - <65 years Risk Factors: >/= 3 Risk Factors or History of CAD Troponin: </= Normal Limit Score: 3 MDM MDM MDM Narrative Medical decision making narrative: 56-year-old male with cardiac history presenting with chest pain which she describes as ripping and tearing. I obtained blood work and his CBC shows a slight leukocytosis 12.0 however this is not elevated over his last 3 previous white blood cell counts. His hemoglobin is stable 8.3. Platelets normal at 239. Renal function and electrolytes within normal limits. EKG performed on arrival shows atrial flutter with a ventricular rate of 92bpm without ST elevation or depression on my interpretation. Chest x- ray my interpretation shows right lower lobe pleural effusion. The radiologist read just as pneumonia. I did obtain a CTA of the chest abdomen pelvis to rule out dissection given his ripping and tearing pain and this is negative for dissection, PE, pneumonia. This was positive for right greater than left pleural effusion however the patient is not requiring more oxygen than normal. I spoke with Dr. Louis regarding the patient as he was seen in office today. I told him that his cardiac work-up was otherwise negative and that he could follow-up with him in the office. He recommended sending him home without narcotic pain medicine. Patient was amenable to this plan and discharged stable condition. Impression: 1. Chest pain Lab Data Attestation: I reviewed the patient's lab results. Labs: Laboratory Results - last 24 hr 04/24/22 04/24/22 04/24/22 12:43 12:43 15:05 WBC 12.0 H RBC 2.93 L Hgb 8.3 L Hct 29.2 L MCV 99.7 H MCH 28.3 MCHC 28.4 L RDW Std Deviation 79.7 H RDW Coeff of Arleen 22.2 H Plt Count 289 MPV 10.1 Immature Gran % (Auto) 0.600 Neut % (Auto) 75.8 H Lymph % (Auto) 10.1 L [place] % (Auto) 10.5 H Eos % (Auto) 2.4 Baso % (Auto) 0.6 Absolute Neuts (auto) 9.1 H Absolute Lymphs (auto) 1.22 Nucleated RBC % 0.7 Differential Comment SCANNED Anisocytosis 2+ Microcytosis 1+ Macrocytosis 1+ Sodium 140 Potassium 3.8 Chloride 103 Carbon Dioxide 28.0 Anion Gap 9 BUN 15 Creatinine 0.85 Estim Creat Clear Calc 90.73 Est GFR (MDRD) Af Amer 119 Est GFR (MDRD) Non-Af 99 BUN/Creatinine Ratio 17.6 Glucose 103 Calcium 9.6 Troponin I High Sens 23 25 Radiography Diagnostic Testing: Clinical Impression(s) from Imaging Studies Chest X-Ray 04/24/22 12:43 IMPRESSION: Right lower lobe pneumonia with a tiny right pleural effusion. Electronically Signed: Holden Mckeon MD at 13:20 EDT , Chest/Abdomen/Pelvis CTA 04/24/22 13:31 IMPRESSION: Moderate right pleural effusion and small left pleural effusion. No CT evidence of aortic dissection. No change in right adrenal adenoma. Electronically Signed: Holden Mckeon MD at 14:37 EDT , Discharge Plan Triage Chief Complaint: Chest Pain ED Provider: Fernando Meneses Dx/Rx/DC Orders Instructions: ED Chest Pain, Noncardiac, ED Pleural Effusion Prescriptions: No Action aspirin [Adult Aspirin Regimen] 81 mg tablet,delayed release (DR/EC) 81 mg PO DAILY RF: 0 Hold Instructions: Resume on 02/14/22. isosorbide mononitrate 120 mg tablet extended release 24 hr 120 mg PO DAILY Qty: 90 RF: 3 sotalol 120 mg tablet 120 mg PO BID Qty: 180 RF: 3 budesonide-formoterol 160-4.5 mcg/actuation HFA aerosol inhaler 2 puff INHALATION BID Qty: 10.2 RF: 5 gabapentin 600 MG tablet 1,200 mg PO TIDCM RF: 0 albuterol sulfate 2.5 MG/3 ML solution for nebulization 1 dose IH Q4H PRN PRN (Reason: Sob &/Or Wheezing) RF: 0 nitroglycerin 0.4 MG tablet, sublingual 0.4 mg sublingual PRN PRN (Reason: chest pain) RF: 0 albuterol sulfate 1 PUFF inhaler 2 puff INHALATION Q6H PRN PRN (Reason: Sob &/Or Wheezing) RF: 0 tamsulosin 0.4 MG capsule 0.4 mg PO DAILY@1730 RF: 0 insulin glargine 100 UNITS/ML insulin pen 10 units SC BREAKFAST RF: 0 levetiracetam [Keppra] 500 mg tablet 500 mg PO BID Qty: 60 RF: 0 promethazine 25 mg tablet 25 mg PO Q6H PRN (Reason: nausea) Qty: 20 RF: 0 metformin 1,000 mg tablet 1,000 mg PO BID RF: 0 aripiprazole 2 mg tablet 2 mg PO QHS RF: 0 sucralfate [Carafate] 1 gram tablet 1 g PO Q6H Qty: 120 RF: 0 pantoprazole [Protonix] 40 mg tablet,delayed release (DR/EC) 40 mg PO BID Qty: 60 RF: 0 furosemide 40 mg tablet 20 mg PO DAILY RF: 0 tramadol 50 mg Tablet 50 mg PO Q6H PRN (Reason: Pain) RF: 0 spironolactone 25 mg Tablet 25 mg PO DAILY 30 Days Qty: 30 RF: 0 amoxicillin-pot clavulanate 875-125 mg tablet 1 tab PO BID Qty: 10 RF: 0 magnesium chloride 64 mg tablet,delayed release (DR/EC) 64 mg PO DAILY Qty: 30 RF: 0 prednisone 10 MG tablet 10 mg PO UD Qty: 33 RF: 0 doxycycline monohydrate 100 MG capsule 100 mg PO BID Qty: 14 RF: 0 atorvastatin 80 mg tablet 80 mg PO QHS Qty: 90 RF: 3 clopidogrel 75 mg tablet 75 mg PO DAILY Qty: 90 RF: 3 Hold Instructions: Resume on 02/14/22. ezetimibe 10 mg tablet 10 mg PO DAILY Qty: 90 RF: 3 lisinopril 10 mg tablet 10 mg PO DAILY Qty: 90 RF: 3 metoprolol succinate 100 mg tablet extended release 24 hr 100 mg PO DAILY Qty: 90 RF: 3 duloxetine 60 mg capsule,delayed release(DR/EC) 60 mg PO QPM Qty: 30 RF: 0 duloxetine 30 mg capsule,delayed release(DR/EC) 30 mg PO QAM Qty: 30 RF: 0 Primary Care Provider: Blaze Louis Referrals: Blaze Louis MD [Primary Care Provider] - Disposition Disposition: Home, Self Care Discharge Date/Time: 04/24/22 17:12
[2022-04-24] MEDS: Ondansetron 4 MG/2 ML Vial IV (14:29)
[2022-04-24] MEDS: fentaNYL 100 MCG/2 ML Ampul 25 MCG IV (14:29)
[2022-04-24 14:50] VITALS: BP 108/57; PULSE 86; RESP 19; O2SAT 94
[2022-04-24 14:51] LABS: Reflex Troponin-HS? (from REC) Y
[2022-04-24 15:24] LABS: Troponin-I HS 25 pg/mL (3.0-78.0)
== END 2022-04-24 17:12 | disposition home or self-care (01) ==
PROVIDERS: Emergency Provider Student in an Organized Health Care Education/Training Program; PCP Family Medicine; Visit Provider Student in an Organized Health Care Education/Training Program
DX: R07.9 Chest pain, unspecified (principal); J44.9 Chronic obstructive pulmonary disease, unspecified; I11.0 Hypertensive heart disease with heart failure; I50.32 Chronic diastolic (congestive) heart failure; I48.0 Paroxysmal atrial fibrillation; E11.9 Type 2 diabetes mellitus without complications; Z79.4 Long term (current) use of insulin; E78.5 Hyperlipidemia, unspecified; I25.10 Atherosclerotic heart disease of native coronary artery without angina pectoris; F17.210 Nicotine dependence, cigarettes, uncomplicated; G47.33 Obstructive sleep apnea (adult) (pediatric); F12.90 Cannabis use, unspecified, uncomplicated; I25.2 Old myocardial infarction; Z79.82 Long term (current) use of aspirin; Z79.899 Other long term (current) drug therapy; Z79.84 Long term (current) use of oral hypoglycemic drugs; Z95.5 Presence of coronary angioplasty implant and graft
CPT/HCPCS: 71045; 71275; 74174; 80048; 84484; 85025; 93005; 96374; 96375; 99285; Q9967; J2405

== ENCOUNTER → 2022-05-02 | Outpatient (CLI) | payer MEDICAID, SELFPAY ==
--- NOTE | 2022-05-02 07:56 | ADU_ITS ---
Reason For Study: Atherosclerosis Right Velocities Left Velocities Ext. Iliac Artery, dist = 70.5 cm./sec. Ext Iliac Artery, dist = 192.7 cm./sec. Common Femoral Artery, mid = 152.7 cm./sec. Common Femoral Artery, mid = 77.8 cm./sec. SFA, origin, 37.6 cm/sec. SFA, origin, 323.9 cm/sec. No flow noted in the SFA prox-distal. Supf. Femoral Artery, prox = 70.5 cm./sec. Supf Femoral Artery, dist. = 17.5 cm./sec. Supf. Femoral Artery, mid = 134.4 cm./sec. Profunda Femoral Artery = 53.6 cm./sec. Supf. Femoral Artery, dist = 28.9 cm./sec. Popliteal Artery, mid = 8.7 cm./sec. Profunda Femoral Artery = 62.1 cm./sec. Post. Tibial Artery, prox = 16.9 cm./sec. Popliteal Artery, mid = 31.1 cm./sec. Post. Tibial Artery, mid = 16.9 cm./sec. Post. Tibial Artery, prox = 58.2 cm./sec. Post. Tibial Artery, dist = 17.2 cm./sec. Post Tibial Artery, mid = 57.2 cm./sec. Peroneal Artery, prox = 10.9 cm./sec. Post Tibial Artery, dist. = 45.9 cm./sec. Peroneal Artery, mid = 6.8 cm./sec. Peroneal Artery, prox = 23.2 cm./sec. Peroneal Artery,dist = 5.9 cm./sec. Peroneal Artery, mid = 30.3 cm./sec. Ant. Tibial Artery, prox = 10.3 cm./sec. Peroneal Artery,dist. = 19.5 cm./sec. Ant. Tibial Artery, mid = 9.9 cm./sec. Ant.Tibial Artery, prox = 33.9 cm./sec. Ant. Tibial Artery, dist = 6.8 cm./sec. Ant Tibial Artery, mid = 34.6 cm./sec. Ant. Tibial Artery, distal = 28.2 cm./sec. Procedure Exam performed in department. VL/US Art Duplex Bilat Lower Ext Interpretation Summary Right femoral artery occluded. Left with severe stenosis origin of the femoral artery. Ordering Physician: Stephan Mcdonald Referring Physician: Blaze Louis Performed By: Lea Goldstein RVT
--- NOTE | 2022-05-02 07:56 | ART_ITS ---
Reason For Study: Atherosclerosis Procedure A bilateral lower extremity continuous wave Doppler with analog waveform analysis and ankle brachial indexes. Left Segmental Pressures Left brachial= 180mmHg. Left posterior tibial artery = 124mmHg. Left dorsalis pedis artery = 133mmHg. Left digit = 105 mmHg. The left dorsalis pedis waveforms are monophasic. The left posterior tibial artery waveforms are monophasic. Right Segmental Pressures Right brachial= 170mmHg. Right posterior tibial artery = 88mmHg. Right dorsalis pedis artery = 54mmHg. Right digit = 89 mmHg. The right dorsalis pedis waveforms are monophasic. The right posterior tibial artery waveforms are monophasic. Indices The right ankle brachial index by the dorsalis pedis is 0.30. The right ankle brachial index by the posterior tibial artery is 0.49. The right digital-brachial index is 0.49. The left ankle brachial index by the dorsalis pedis is 0.74. The left ankle brachial index by the posterior tibial artery is 0.69. The left digital-brachial index is 0.58. VL/Ankle Brachial Index Interpretation Summary Right lower extremity moderate occlusive disease with an TAMEKA 0.49. Left with mi ld occlusive disease with an TAMEKA 0.74. More monophasic flow bilaterally. Ordering Physician: Stephan Mcdonald Referring Physician: Blaze Louis Performed By: Lea Goldstein RVT
--- NOTE | 2022-05-02 07:57 | CDU_ITS ---
Reason For Study: Carotid stenosis Rt. Velocities/BP Lt. Velocities/BP Prox CCA 70.8/13.4 cm/sec. Prox CCA 64.5/15.2 cm/sec. Mid CCA 48.6/13.4 cm/sec. Mid CCA 42.1/13.5 cm/sec. Dist CCA 61.7/17.3 cm/sec. Dist CCA 32.2/11.3 cm/sec. Prox ICA 64.5/18.8 cm/sec. Prox ICA 79.7/22.6 cm/sec. Mid ICA 106.5/29.8 cm/sec. Mid ICA 119.2/42.4 cm/sec. Dist ICA 88.2/38.9 cm/sec. Dist ICA 119.2/42.4 cm/sec. Rt. ICA/CCA = 1.73. Lt. ICA/CCA = 2.83. Prox ECA 205.4/34.5 cm/sec. Prox ECA 243.4/59.1 cm/sec. Rt. Vert. 110.1/29.8 cm/sec. Lt. Vert. 43.4/11.4 cm/sec. Right Extracranial There is heterogeneous, irregular atherosclerotic plaque noted in the right common carotid artery. There is heterogeneous, irregular atherosclerotic plaque noted in the right internal carotid artery. There is heterogeneous, irregular atherosclerotic plaque noted in the right external carotid artery. The atherosclerotic plaque causes acoustic shadowing. Antegrade flow is noted in the right vertebral artery. Left Extracranial There is homogeneous, smooth atherosclerotic plaque noted in the left common carotid artery. There is homogeneous, smooth atherosclerotic plaque noted in the left internal carotid artery. There is heterogeneous, irregular atherosclerotic plaque noted in the left external carotid artery. Antegrade flow is noted in the left vertebral artery. Procedure This is a Carotid Duplex examination using B-mode, color flow and specral Doppler. Carotid Duplex [id number]. Exam performed in department. VL/Carotid Duplex Ultrasound Interpretation Summary Mild (<50%) stenosis right extracranial internal carotid. Mild (<50%) stenosis left extracranial internal carotid. Flow within the vertebral arteries is antegrade bilaterally. Ordering Physician: Stephan Mcdonald Referring Physician: Blaze Louis Performed By: Lea Goldstein RVT
--- NOTE | 2022-05-02 07:57 | AAVD_ITS ---
Reason For Study: Stricture of artery Aorta Measurements Aorta Doppler Measurements Proximal aorta measures1.32 x 1.33cm. in cross- Peak systolic flow velocities within the proximal sectional axis. aorta measure 82.5 cm/sec. Proximal aorta measures1.32cm. in longitudinal Peak systolic flow velocities within the mid aorta axis. measure 43.5 cm/sec. Mid aorta measures1.42 x 1.46cm. in cross- Peak systolic flow velocities within the distal sectional axis. aorta measure 41.3 cm/sec. Mid aorta measures1.42cm. in longitudinal axis. Distal aorta measures1.32 x 1.30cm. in cross- sectional axis. Distal aorta measures1.35cm. in longitudinal axis. Left Iliac Artery Left iliac artery measures 0.84 x 0.80 cm. in the cross-sectional axis. Left iliac artery measures 0.85 cm. in the longitudinal axis. Peak systolic velocity in the left iliac artery measures 85.5 cm/sec. Right Iliac Artery Right iliac artery measures 0.60 x 0.64 cm. in the longitudinal axis. Right iliac artery measures 0.54 cm. in the cross-sectional axis. Peak systolic velocity in the right iliac artery measures 100.2 cm/sec. Procedure Aorta IVC Iliac vasculature or bypass grafts [id number]. Exam performed in department. VL/Abd Aortic/IVC Duplex scan Interpretation Summary Aortic iliac with no evidence of stenosis or aneurysm noted. Ordering Physician: Stephan Mcdonald Referring Physician: Blaze Louis Performed By: Lea Goldstein RVT
== END | disposition home or self-care (01) ==
LOC: CVS 07:52
PROVIDERS: PCP Family Medicine; Referring Provider Surgery Vascular Surgery; Visit Provider Surgery Vascular Surgery
DX: I77.1 Stricture of artery (principal); I70.213 Atherosclerosis of native arteries of extremities with intermittent claudication, bilateral legs; E11.9 Type 2 diabetes mellitus without complications; I65.23 Occlusion and stenosis of bilateral carotid arteries; F17.200 Nicotine dependence, unspecified, uncomplicated; E78.70 Disorder of bile acid and cholesterol metabolism, unspecified; F10.11 Alcohol abuse, in remission; I51.9 Heart disease, unspecified
CPT/HCPCS: 93880; 93922; 93925; 93978

== ENCOUNTER 2022-06-27 12:25 | Emergency (ER) | payer MEDICAID, SELFPAY ==
[2022-06-27 12:28] VITALS: BP 172/138; PULSE 80; RESP 20; TEMP 36.6; O2SAT 97; BMI 28.8
--- NOTE | 2022-06-27 12:47 | CT_ITS ---
STUDY: CT BRAIN WITHOUT CONTRAST REASON FOR EXAM: Male, 56 years old. Head trauma following seizure. RADIATION DOSAGE (If Supplied By Facility): CTDIvol = ( 44.99 ) mGy, DLP = ( 812.98 ) mGycm TECHNIQUE: Transaxial CT imaging of the brain was performed without administration of intravenous contrast material. Individualized dose optimization techniques were used for this CT. COMPARISON: Comparison is made with prior study dated 03/05/2022. FINDINGS: Normal soft tissue structures. Normal calvarium. There is mild cerebral atrophy with widening of the extra-axial spaces and ventricular dilatation. Normal white matter tracts of the cerebral hemispheres. Stable small lacunar infarct in the left basal ganglion. Normal brainstem. Normal cerebellum. There is no intracranial hemorrhage. There are no findings of an acute ischemic infarction. Atherosclerotic plaque formation of the cavernous portions of the internal carotid arteries bilaterally. Normal visualized paranasal sinuses. CT/Brain/Head without Contrast IMPRESSION: Chronic involutional changes of the brain. No acute abnormality is seen. Electronically Signed: Harry Voss MD at 13:20 EDT ,
--- NOTE | 2022-06-27 12:47 | EKG12_ITS ---
Test Reason : SEIZURE Blood Pressure : / mmHG Vent. Rate : 081 BPM Atrial Rate : 081 BPM P-R Int : 132 ms QRS Dur : 082 ms QT Int : 414 ms P-R-T Axes : 115 057 076 degrees QTc Int : 480 ms Normal sinus rhythm Prolonged QT Abnormal ECG Confirmed by ZACH LOMELI, TED ([id number]), continuity editor CANDICE ZAZUETA ([id number]) on 06/30/2022 11:38:53 AM Referred By: ROSS Confirmed By:ALY SERRANO MD
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
[2022-06-27 12:53] VITALS: PULSE 82; RESP 18; O2SAT 96
[2022-06-27 13:10] LABS: Absolute Lymphocyte Count 0.35 X10^3/uL (0.83-4.51); Absolute Neutrophil Count 7.3 X10^3/uL (2.0-7.7); Basophil# 0.04 X10^3/uL; Basophil% 0.5 % (0-1); Eosinophil# 0.35 X10^3/uL; Hematocrit 35.2 % (40-54); Lymphocyte # 0.35 X10^3/ul (0.83-4.51); Mean Corp Hgb Conc 31.3 g/dL (32-36); Mean Corpuscular Hgb 32.8 pg (27.0-32.0); Mean Corpuscular Volume 105.1 fL (80-94); Monocyte# 0.74 X10^3/uL; Monocyte% 8.4 % (0-10); NRBC Flagged by Analyzer 0.3 % (0-5); Neutrophil # 7.33 X10^3/uL (2.7-7.7); Neutrophil % 82.5 % (47-70); POSITIVE DIFFERENTIAL YES; Platelet Count 260 K/mm3 (150-450); RBC Distribution Width CV 16.9 % (11.6-14.6); RBC Distribution Width SD 64.6 fl (35.1-43.9); Red Blood Count 3.35 M/mm3 (4.6-6.2); White Blood Count 8.9 K/mm3 (4.4-11.0)
--- NOTE | 2022-06-27 13:18 | RAD_ITS ---
STUDY: X-RAY CHEST REASON FOR EXAM: Male, 56 years old. Passing out TECHNIQUE: Single AP portable view of the chest. COMPARISON: Comparison is made with prior study dated 04/01/2022. FINDINGS: EKG electrodes are seen. A loop recorder device is seen overlying the left heart. Hyperinflation. The lungs are clear. There is no demonstrated pleural abnormality. Sternal cerclage wires and vascular clips are present from a prior sternotomy and coronary artery bypass graft procedure (CABG). Normal mediastinum and ranjit. Normal visualized pulmonary arteries. Normal visualized aortic arch and descending thoracic aorta. Normal visualized thoracic spine. Normal visualized ribs, clavicles, and shoulders. There is no demonstrated abnormality of the visualized soft tissue structures of the upper abdomen. RAD/Chest 1 View (Portable) IMPRESSION: Hyperinflation. The lungs are clear. Electronically Signed: Harry Voss MD at 13:28 EDT ,
[2022-06-27 13:22] LABS: Anion Gap 6 (5-15); BUN 21 mg/dL (7-18); BUN/Creat Ratio 11.6 RATIO (10-20); Calcium,Total 9.2 mg/dL (8.5-10.1); Chloride 100 mmol/L (98-107); Creatinine, Serum 1.81 mg/dL (0.70-1.30); EST Glomerular Filtration Rate 41 mL/min (>60); Est Glom Filt Rate - Afr Amer 50 mL/min (>60); Estimated Creatinine Clearance 44.09 ml/min; Glucose 124 mg/dL (74-106); Potassium 4.7 mmol/L (3.5-5.1); Sodium Level 134 mmol/L (136-145)
[2022-06-27 13:28] LABS: Differential Indicated SCAN CRITERIA MET
[2022-06-27 13:29] LABS: Anisocytosis 2+
[2022-06-27 14:12] VITALS: BP 100/52; PULSE 82; RESP 14; O2SAT 100
== END 2022-06-27 14:26 | disposition home or self-care (01) ==
PROVIDERS: Emergency Provider Emergency Medicine; PCP Family Medicine; Visit Provider Emergency Medicine
DX: G40.909 Epilepsy, unspecified, not intractable, without status epilepticus (principal); N17.9 Acute kidney failure, unspecified; J44.9 Chronic obstructive pulmonary disease, unspecified; I50.32 Chronic diastolic (congestive) heart failure; I11.0 Hypertensive heart disease with heart failure; I48.0 Paroxysmal atrial fibrillation; E11.9 Type 2 diabetes mellitus without complications; Z79.4 Long term (current) use of insulin; E78.5 Hyperlipidemia, unspecified; I25.10 Atherosclerotic heart disease of native coronary artery without angina pectoris; F17.210 Nicotine dependence, cigarettes, uncomplicated; G47.33 Obstructive sleep apnea (adult) (pediatric); G89.29 Other chronic pain; E87.1 Hypo-osmolality and hyponatremia; R07.81 Pleurodynia; M79.606 Pain in leg, unspecified; Z79.82 Long term (current) use of aspirin; Z79.899 Other long term (current) drug therapy; Z79.84 Long term (current) use of oral hypoglycemic drugs; Z95.5 Presence of coronary angioplasty implant and graft
CPT/HCPCS: 70450; 71045; 80048; 84484; 85025; 93005; 99283; 99285; A4216

== ENCOUNTER 2022-06-27 22:04 | Emergency (ER) | payer MEDICAID, SELFPAY ==
[2022-06-27 22:05] VITALS: BP 93/56; PULSE 79; RESP 17; TEMP 36.8; O2SAT 100; BMI 30.8
[2022-06-27 22:25] VITALS: O2SAT 97
--- NOTE | 2022-06-27 22:26 | EDS_ITS ---
HPI History of Present Illness Chief Complaint: Chest Pain Narrative Narrative: Patient with past medical history of COPD wears 3 L of oxygen, chronic chest pain, coronary artery disease with 6 heart attacks presents with left-sided chest pain that radiates to his jaw and his arm. He states that he has been hurting all day. He gets chest pain every day that lasts all day. No exacerbating or alleviating factors. He states he was seen in the emergency department earlier today for syncopal episode and was released. He complains of increasing pain in the left side of his chest. He states his girlfriend called and had him come to the emergency department for evaluation of his continued chest pain. [facility] Medical History (HFpEF) heart failure with preserved ejection fraction Acute hypotension Acute repetitive seizure Atherosclerosis of coronary artery bypass graft without angina pectoris Atherosclerosis of coronary artery of [place] heart without angina pectoris Atrial fibrillation Chest wall contusion Chronic anticoagulation Chronic obstructive pulmonary disease CPAP (continuous positive airway pressure) dependence Diabetes mellitus Essential hypertension Fall from slip, trip, or stumble Fracture of rib Hyperlipidemia Hypertension Leg swelling Lower extremity edema Major depression Metatarsal bone fracture Myocardial infarct Nicotine abuse KENNETH and COPD overlap syndrome PAD (peripheral artery disease) Paroxysmal atrial fibrillation Rectal bleeding Secondary pulmonary arterial hypertension Sleep apnea Smoking greater than 40 pack years Stroke/cerebrovascular accident Suicidal ideation Syncope Typical atrial flutter Home Medications gabapentin 600 mg tablet 1,200 mg PO TIDCM NERVE PAIN 12/07/15 [History Last Taken 02/06/22] albuterol sulfate 2.5 mg/3 mL (0.083 %) solution for nebulization 1 dose IH Q4H PRN PRN Sob &/Or Wheezing 11/09/19 [History Last Taken 02/06/22] albuterol sulfate 90 mcg/actuation aerosol inhaler 2 puff inhalation Q6H PRN PRN Sob &/Or Wheezing 11/09/19 [History Last Taken 02/05/22] nitroglycerin 0.4 mg sublingual tablet 0.4 mg sublingual PRN PRN chest pain 11/09/19 [History Last Taken 04/24/22] aspirin 81 mg tablet,delayed release (Adult Aspirin Regimen) 81 mg PO DAILY health maintenance 05/24/20 [History Last Taken 02/06/22] insulin glargine 100 unit/mL (3 mL) subcutaneous pen 10 units subcut BREAKFAST diabetes 12/18/20 [History Last Taken 02/06/22] tamsulosin 0.4 mg capsule 0.4 mg PO DAILY@1730 prostate 12/18/20 [History Last Taken 02/05/22] isosorbide mononitrate 120 mg tablet,extended release 24 hr 120 mg PO DAILY HEART #90 tabs 01/29/21 [Rx Last Taken 02/06/22] levetiracetam 500 mg tablet (Keppra) 500 mg PO BID #60 tabs 04/19/21 [Rx Last Taken 02/06/22] budesonide-formoterol HFA 160 mcg-4.5 mcg/actuation aerosol inhaler 2 puff inhalation BID copd #10.2 grams 05/30/21 [Rx Last Taken 02/06/22] promethazine 25 mg tablet 25 mg PO Q6H PRN nausea #20 tabs 12/17/21 [Rx Last Taken 02/06/22] atorvastatin 80 mg tablet 80 mg PO QHS Cholesterol #90 tabs 01/17/22 [Rx Last Taken 02/05/22] clopidogrel 75 mg tablet 75 mg PO DAILY antiplatelet #90 tabs 01/17/22 [Rx Last Taken 02/06/22] ezetimibe 10 mg tablet 10 mg PO DAILY #90 tabs 01/17/22 [Rx Last Taken 02/06/22] lisinopril 10 mg tablet 10 mg PO DAILY BP #90 tabs 01/17/22 [Rx Last Taken 02/06/22] metoprolol succinate 100 mg tablet,extended release 24 hr 100 mg PO DAILY heart #90 tabs 01/17/22 [Rx Last Taken 02/06/22] aripiprazole 2 mg tablet 2 mg PO QHS MOOD 02/06/22 [History Last Taken 02/05/22] metformin 1,000 mg tablet 1,000 mg PO BID DM 02/06/22 [History Last Taken 02/06/22] pantoprazole 40 mg tablet,delayed release (Protonix) 40 mg PO BID #60 tabs 02/09/22 [Rx Last Taken Unknown] sucralfate 1 gram tablet (Carafate) 1 g PO Q6H #120 tabs 02/09/22 [Rx Last Taken Unknown] furosemide 40 mg tablet 20 mg PO DAILY FLUID 03/05/22 [History Last Taken Unknown] tramadol 50 mg tablet 50 mg PO Q6H PRN Pain 03/05/22 [History Last Taken Unknown] magnesium chloride 64 mg (magnesium chloride) tablet,delayed release 64 mg PO DAILY #30 tabs 03/08/22 [Rx Last Taken Unknown] spironolactone 25 mg tablet 25 mg PO DAILY 30 days #30 tabs 03/08/22 [Rx Last Taken Unknown] doxycycline monohydrate 100 mg capsule 100 mg PO BID #14 CAPSULES 04/01/22 [Rx Last Taken Unknown] prednisone 10 mg tablet 10 mg PO UD #33 tabs 04/01/22 [Rx Last Taken Unknown] sotalol 120 mg tablet 120 mg PO BID heart #180 tabs 06/03/22 [Rx Last Taken Unknown] duloxetine 30 mg capsule,delayed release 30 mg PO QAM #30 caps 06/04/22 [Rx Last Taken Unknown] duloxetine 60 mg capsule,delayed release 60 mg PO QPM #30 caps 06/04/22 [Rx Last Taken Unknown] Allergy/AdvReac Type Severity Reaction Status Date / Time seasonal Allergy SOB Uncoded 06/27/22 22:08 Family History Father CAD (coronary artery disease) COPD (chronic obstructive pulmonary disease) CHF (congestive heart failure) CVA (cerebral vascular accident) Mother COPD (chronic obstructive pulmonary disease) Other Neuropathy Surgical History H/O coronary artery bypass surgery (10/2005) History of coronary artery stent placement (01/05/14) History of left heart catheterization (12/20/20) History of loop recorder (2015) History of open reduction and internal fixation (ORIF) procedure Social History household members: significant other and other housing: house number of children: 2 Smoking Status: Current every day smoker tobacco type: cigarettes Electronic Cigarette Use: with nicotine second hand exposure: No alcohol intake: current alcohol intake frequency: 3 or more drinks per day Alcohol type: wine substance use type: marijuana caffeine: Yes Type: coffee what type of physical activity do you participate in: walking frequency: daily duration: < 15 minutes/day seatbelt use: always do you feel safe at home: Yes ROS ROS ED ROS Narrative Constitutional: No fever, no chills. HEENT: No sore throat. No neck pain. No loss of vision. No rhinorrhea. Cardiovascular: Positive left-sided chest pain radiating to jaw and left arm, chronic. No palpitations. No pedal edema. Respiratory: No cough, no shortness of breath. Abdominal: No abdominal pain. No nausea. No vomiting. Genitourinary: No dysuria. No hematuria. Musculoskeletal: No myalgias. No arthralgias. Neurologic: No headaches. No dizziness. No lightheadedness. Skin: No rash. No change in color. Psychiatric: No depression. No anxiety. EXAM Physical Exam Narrative Exam Narrative: Afebrile. Vital signs noted. HEENT: Normocephalic. Atraumatic. PERRL, EOMI. Neck soft and supple. No point tenderness or step off. Cardiovascular: Regular rate and rhythm. No murmurs, rubs, or gallops a ppreciated. Respiratory: No tachypnea. Lungs clear to auscultation bilaterally. Gastrointestinal: Abdomen soft, nontender, with normoactive bowel sounds. No rebound or guarding. Neurological: Awake. Alert. Nonfocal, nonlateralizing. Skin: No rash. Normal color. No pallor. Musculoskeletal: No pedal edema. Full range of motion extremities. Const Vital Signs: 06/27/22 22:05 06/27/22 22:08 06/27/22 22:25 Temperature 98.3 F Temperature Source Oral Pulse Rate 79 Respiratory Rate 17 Respiratory Effort Normal Respiratory Pattern Normal Blood Pressure 93/56 L Blood Pressure Mean 68 Pulse Ox 100 97 Oxygen Delivery Method Room Air Nasal Cannula Oxygen Flow Rate (L/min) 3 06/27/22 22:53 06/28/22 00:00 Temperature Temperature Source Pulse Rate 78 76 Respiratory Rate 16 17 Respiratory Effort Respiratory Pattern Blood Pressure 93/34 L 111/95 H Blood Pressure Mean 53 100 Pulse Ox 94 97 Oxygen Delivery Method Nasal Cannula Room Air Oxygen Flow Rate (L/min) 3 MDM MDM MDM Narrative Medical decision making narrative: Chest pain work-up was pursued. My interpretation of his EKG demonstrates what I feel is more normal sinus rhythm at [address] changes, no STEMI. I do see P waves in lead II, but his V1 rhythm strip may be more atrial fibrillation. He does have chronic atrial paroxysmal A. fib. He had a chest x- ray earlier today which I reviewed. It was also read as negative. Sodium was slightly low at 129 with potassium 3.4, creatinine 2.10. It was 1.81 earlier today. Initial high-sensitivity troponin is 16. Repeat will be performed. He has normal white count of 9.3 with hemoglobin stable at 9.8, platelet count 210. I reviewed his prior records. He has been seen multiple times for these reported syncopal episodes that he states he was having earlier today. Additionally, he has chronic pain especially on his ribs from previous rib fractures. Additionally, in his chart from a previous visit, in discussion with his primary care physician it is prefer that he not be given narcotic pain medication. At this point in time, his second troponin is still pending. He will be given 1 tramadol for analgesia. He was told that he would not be receiving any narcotic pain medication. He takes tramadol for the chronic pain in his leg. He will still follow-up with his primary care physician as instructed previously for his acute kidney injury, but he had been bolused normal saline 1 L intravenously here which should improve his sodium/hyponatremia and his creatinine. He will be signed out to the overnight physician, Dr. Rico Duran, to check the delta troponin and discharge the patient should it be normal. Patient is in stable condition. Lab Data Attestation: I reviewed the patient's lab results. Labs: Laboratory Results - last 24 hr 06/27/22 06/27/22 22:40 22:40 WBC 9.3 RBC 2.88 L Hgb 9.8 L Hct 29.8 L MCV 103.5 H MCH 34.0 H MCHC 32.9 D RDW Std Deviation 64.0 H RDW Coeff of Arleen 16.7 H Plt Count 210 MPV 9.6 Immature Gran % (Auto) 1.100 H Neut % (Auto) 80.4 H Lymph % (Auto) 3.3 L Benzie % (Auto) 12.2 H Eos % (Auto) 2.6 Baso % (Auto) 0.4 Absolute Neuts (auto) 7.5 Absolute Lymphs (auto) 0.31 L Nucleated RBC % 0.3 Differential Comment SEE COMMENT Platelet Estimate ADEQUATE RBC Morphology N CHROM Hypochromasia RARE Anisocytosis 1+ Macrocytosis 1+ Sodium 129 L Potassium 3.4 L Chloride 95 L Carbon Dioxide 20.0 L Anion Gap 14 BUN 23 H Creatinine 2.10 H Estim Creat Clear Calc 38.00 Est GFR (MDRD) Af Amer 42 L Est GFR (MDRD) Non-Af 35 L BUN/Creatinine Ratio 11.0 Glucose 92 Calcium 8.7 Troponin I High Sens 16 Discharge Plan Triage Chief Complaint: Chest Pain ED Provider: Fausto Conner Dx/Rx/DC Orders Clinical Impression: Chest pain, Rib pain on left side, Chronic pain, Acute kidney injury Instructions: Acute Kidney Failure Dc, Managing Chronic Pain, ED Chest Pain, Noncardiac, ED Pain Management: Chronic Prescriptions: No Action aspirin [Adult Aspirin Regimen] 81 mg tablet,delayed release (DR/EC) 81 mg PO DAILY Hold Instructions: Resume on 02/14/22. isosorbide mononitrate 120 mg tablet extended release 24 hr 120 mg PO DAILY Qty: 90 3RF budesonide-formoterol 160-4.5 mcg/actuation HFA aerosol inhaler 2 puff INHALATION BID Qty: 10.2 5RF gabapentin 600 MG tablet 1,200 mg PO TIDCM Label Comments: 2 tabs in the evening albuterol sulfate 2.5 MG/3 ML solution for nebulization 1 dose IH Q4H PRN PRN (Reason: Sob &/Or Wheezing) nitroglycerin 0.4 MG tablet, sublingual 0.4 mg sublingual PRN PRN (Reason: chest pain) albuterol sulfate 1 PUFF inhaler 2 puff INHALATION Q6H PRN PRN (Reason: Sob &/Or Wheezing) tamsulosin 0.4 MG capsule 0.4 mg PO DAILY@1730 insulin glargine 100 UNITS/ML insulin pen 10 units SC BREAKFAST levetiracetam [Keppra] 500 mg tablet 500 mg PO BID Qty: 60 0RF promethazine 25 mg tablet 25 mg PO Q6H PRN (Reason: nausea) Qty: 20 0RF metformin 1,000 mg tablet 1,000 mg PO BID Label Comments: take 1 tablet by mouth twice a day aripiprazole 2 mg tablet 2 mg PO QHS Label Comments: take 1 tablet by mouth nightly sucralfate [Carafate] 1 gram tablet 1 g PO Q6H Qty: 120 0RF pantoprazole [Protonix] 40 mg tablet,delayed release (DR/EC) 40 mg PO BID Qty: 60 0RF furosemide 40 mg tablet 20 mg PO DAILY tramadol 50 mg Tablet 50 mg PO Q6H PRN (Reason: Pain) spironolactone 25 mg Tablet 25 mg PO DAILY 30 Days Qty: 30 0RF magnesium chloride 64 mg tablet,delayed release (DR/EC) 64 mg PO DAILY Qty: 30 0RF prednisone 10 MG tablet 10 mg PO UD Qty: 33 0RF Rx Instructions: Take 4 tablets daily for 3 days, then 3 daily for 3 days, then 2 daily for 3 days, then 1 a day for 3 days then 1 QOD for 3 doses. doxycycline monohydrate 100 MG capsule 100 mg PO BID Qty: 14 0RF atorvastatin 80 mg tablet 80 mg PO QHS Qty: 90 3RF clopidogrel 75 mg tablet 75 mg PO DAILY Qty: 90 3RF Hold Instructions: Resume on 02/14/22. ezetimibe 10 mg tablet 10 mg PO DAILY Qty: 90 3RF lisinopril 10 mg tablet 10 mg PO DAILY Qty: 90 3RF metoprolol succinate 100 mg tablet extended release 24 hr 100 mg PO DAILY Qty: 90 3RF sotalol 120 mg tablet 120 mg PO BID Qty: 180 3RF duloxetine 60 mg capsule,delayed release(DR/EC) 60 mg PO QPM Qty: 30 3RF duloxetine 30 mg capsule,delayed release(DR/EC) 30 mg PO QAM Qty: 30 3RF Primary Care Provider: Blaze Louis Referrals: Blaze Louis MD [Primary Care Provider] - 3-5 Days
--- NOTE | 2022-06-27 22:30 | EKG12_ITS ---
Test Reason : CP Blood Pressure : / mmHG Vent. Rate : 079 BPM Atrial Rate : 237 BPM P-R Int : 000 ms QRS Dur : 090 ms QT Int : 414 ms P-R-T Axes : 095 056 097 degrees QTc Int : 474 ms Atrial flutter Nonspecific ST and T wave abnormality Abnormal ECG Confirmed by ZACH LOMELI, TED ([id number]), editorial specialist CANDICE ZAZUETA ([id number]) on 06/30/2022 11:44:03 AM Referred By: LUX Confirmed By:ALY SERRANO MD
[2022-06-27 22:47] LABS: Absolute Lymphocyte Count 0.31 X10^3/uL (0.83-4.51); Absolute Neutrophil Count 7.5 X10^3/uL (2.0-7.7); Basophil# 0.04 X10^3/uL; Basophil% 0.4 % (0-1); Eosinophil# 0.24 X10^3/uL; Eosinophils% 2.6 % (0-5); Hematocrit 29.8 % (40-54); Hemoglobin 9.8 g/dL (13.0-16.5); Lymphocyte # 0.31 X10^3/ul (0.83-4.51); Lymphocyte % 3.3 % (19-41); Mean Corp Hgb Conc 32.9 g/dL (32-36); Mean Corpuscular Volume 103.5 fL (80-94); Mean Platelet Vol. 9.6 fl (6.2-12.0); Monocyte# 1.13 X10^3/uL; Monocyte% 12.2 % (0-10); NRBC Flagged by Analyzer 0.3 % (0-5); Neutrophil # 7.47 X10^3/uL (2.7-7.7); Neutrophil % 80.4 % (47-70); POSITIVE DIFFERENTIAL YES; Platelet Count 210 K/mm3 (150-450); RBC Distribution Width CV 16.7 % (11.6-14.6); Red Blood Count 2.88 M/mm3 (4.6-6.2); White Blood Count 9.3 K/mm3 (4.4-11.0)
[2022-06-27 22:52] LABS: Differential Indicated SCAN CRITERIA MET
[2022-06-27 22:53] VITALS: BP 93/34; PULSE 78; RESP 16; O2SAT 94
[2022-06-27 23:06] LABS: Anion Gap 14 (5-15); BUN 23 mg/dL (7-18); Calcium,Total 8.7 mg/dL (8.5-10.1); Chloride 95 mmol/L (98-107); EST Glomerular Filtration Rate 35 mL/min (>60); Est Glom Filt Rate - Afr Amer 42 mL/min (>60); Glucose 92 mg/dL (74-106); Potassium 3.4 mmol/L (3.5-5.1); Sodium Level 129 mmol/L (136-145); Troponin-I HS (w/2H Reflex) 16 pg/mL (3.0-78.0)
[2022-06-27 23:08] LABS: Anisocytosis 1+; Platelet Estimate ADEQUATE (ADEQ); Red Cell Morphology N CHROM NORMAL (NORM C&C)
[2022-06-27 23:09] LABS: Hypochromasia RARE; Macrocytosis 1+
[2022-06-27] MEDS: 0.9% Normal Saline 1,000 ML 999 ML IV (23:47)
[2022-06-28] VITALS: BP 111/95; PULSE 76; RESP 17; O2SAT 97
[2022-06-28 00:44] LABS: Reflex Troponin-HS? (from REC) Y
[2022-06-28 01:00] VITALS: BP 116/58; PULSE 76; RESP 17; O2SAT 97
[2022-06-28 01:09] LABS: Troponin-I HS 17 pg/mL (3.0-78.0)
[2022-06-28] MEDS: traMADol 50 MG Tablet PO (01:10)
== END 2022-06-28 01:30 | disposition home or self-care (01) ==
PROVIDERS: Emergency Provider Emergency Medicine; PCP Family Medicine; Visit Provider Emergency Medicine
DX: R07.89 Other chest pain (principal); N17.9 Acute kidney failure, unspecified; J44.9 Chronic obstructive pulmonary disease, unspecified; I50.32 Chronic diastolic (congestive) heart failure; I11.0 Hypertensive heart disease with heart failure; I48.0 Paroxysmal atrial fibrillation; E11.9 Type 2 diabetes mellitus without complications; I25.10 Atherosclerotic heart disease of native coronary artery without angina pectoris; G89.29 Other chronic pain; E78.5 Hyperlipidemia, unspecified; F17.210 Nicotine dependence, cigarettes, uncomplicated; E87.1 Hypo-osmolality and hyponatremia; M79.606 Pain in leg, unspecified; R07.81 Pleurodynia; Z99.81 Dependence on supplemental oxygen; Z79.899 Other long term (current) drug therapy
CPT/HCPCS: 80048; 84484; 85025; 93005; 99285; A4216

== ENCOUNTER 2022-07-30 15:58 | Emergency (ER) | payer MEDICAID, SELFPAY ==
[2022-07-30 15:59] VITALS: BP 109/63; PULSE 83; RESP 16; TEMP 35.9; O2SAT 95; BMI 27.8
--- NOTE | 2022-07-30 16:05 | CT_ITS ---
STUDY: CT ABDOMEN AND PELVIS WITHOUT CONTRAST REASON FOR EXAM: Male, 56 years old. Pain RADIATION DOSAGE (If Supplied By Facility): CTDIvol = ( 8.93 ) mGy, DLP = ( 475.42 ) mGycm TECHNIQUE: Transaxial images were obtained from the dome of the diaphragm to the symphysis pubis without oral contrast, and without intravenous contrast. Sagittal and coronal images were reconstructed. Individualized dose optimization techniques were used for this CT. COMPARISON: CTA chest, abdomen and pelvis 03/05/2022. FINDINGS: The visualized lung bases are unremarkable. Bibasilar infiltrates have resolved. The visualized portions of the heart are within normal limits. Normal liver. Normal gallbladder and extrahepatic biliary system. Normal spleen. Normal pancreas. Right adrenal mass 4.03 cm AP by 2.89 cm transverse by 4.07 cm craniocaudal, attenuation coefficient of 9.3 Hounsfield units. Findings are consistent with adrenal adenoma stable since the prior study. Left adrenal gland normal. There are bilateral pelvic phleboliths involving both kidneys. These are calcified. There is a simple cyst extending off the lower pole of the left kidney 4.42 cm transverse. Normal visualized stomach. Normal small intestine. Normal colon. Fecal stasis resolved. The appendix is visualized and appears normal. Moderate atherosclerotic vascular calcification. No evidence of aneurysm. Critical stenosis of proximal right common iliac artery and severe stenosis of the proximal left common iliac artery. Normal inferior vena cava. Normal retroperitoneum. Normal urinary bladder. Normal abdominal wall. Left and mild right facet arthropathy L5-S1. CT/Abdomen/Pelvis without Cont IMPRESSION: Interval resolution of bilateral pneumonitis bilateral pleural effusions right greater than left. Right adrenal adenoma stable. Interval resolution of fecal stasis. Simple cyst lower pole left kidney. Facet arthropathy and degenerative disc disease L5-S1. Electronically Signed: Ryland Bennett MD, KANNAN at 17:01 EDT ,
--- NOTE | 2022-07-30 16:05 | EKG12_ITS ---
Test Reason : Blood Pressure : / mmHG Vent. Rate : 084 BPM Atrial Rate : 084 BPM P-R Int : 176 ms QRS Dur : 088 ms QT Int : 420 ms P-R-T Axes : 098 049 061 degrees QTc Int : 496 ms Normal sinus rhythm Inferior-posterior infarct , age undetermined Abnormal ECG Confirmed by ZACH LOMELI, TED ([id number]), content editor CANDICE ZAZUETA ([id number]) on 08/01/2022 2:03:41 PM Referred By: GERALD Confirmed By:ALY SERRANO MD
--- NOTE | 2022-07-30 16:06 | EX.ED.DYSGE1 ---
HPI History of Present Illness Chief Complaint: Flank Pain Narrative Narrative: Patient arrives by EMS. He started with some right flank pain about 5 days ago. He states he was in the shower and it just suddenly started. It was sharp and burning. It waxes and wanes but never goes away. When the pain is bad he has nausea but he has never vomited. He states he is eating and drinking normally. He is moving his bowels normally. He states that the stool has been more orange-colored. But its not red or black. He is on Plavix and has had GI bleeds before. But the stool looks different. He does have some mild dysuria off and on. He also states the urine smells stronger and is darker. Urinating does not aggravate the pain. Motion does not aggravate it notably. Although he has a history of syncope he has not had any syncopal episodes with this. He does not know what meds he takes but he has not changed any of his medicines. Nothing consistently makes this better or notably worse. He does not recall ever having this before. He is not having any pains in his chest. [facility] Medical History (HFpEF) heart failure with preserved ejection fraction Acute hypotension Acute repetitive seizure Atherosclerosis of coronary artery bypass graft without angina pectoris Atherosclerosis of coronary artery of [place] heart without angina pectoris Atrial fibrillation Chest wall contusion Chronic anticoagulation Chronic obstructive pulmonary disease CPAP (continuous positive airway pressure) dependence Diabetes mellitus Essential hypertension Fall from slip, trip, or stumble Fracture of rib Hyperlipidemia Hypertension Leg swelling Lower extremity edema Major depression Metatarsal bone fracture Myocardial infarct Nicotine abuse KENNETH and COPD overlap syndrome PAD (peripheral artery disease) Paroxysmal atrial fibrillation Rectal bleeding Secondary pulmonary arterial hypertension Sleep apnea Smoking greater than 40 pack years Stroke/cerebrovascular accident Suicidal ideation Syncope Typical atrial flutter Home Medications gabapentin 600 mg tablet 1,200 mg PO TIDCM NERVE PAIN 12/07/15 [History Last Taken 02/06/22] albuterol sulfate 2.5 mg/3 mL (0.083 %) solution for nebulization 1 dose IH Q4H PRN PRN Sob &/Or Wheezing 11/09/19 [History Last Taken 02/06/22] albuterol sulfate 90 mcg/actuation aerosol inhaler 2 puff inhalation Q6H PRN PRN Sob &/Or Wheezing 11/09/19 [History Last Taken 02/05/22] nitroglycerin 0.4 mg sublingual tablet 0.4 mg sublingual PRN PRN chest pain 11/09/19 [History Last Taken 04/24/22] aspirin 81 mg tablet,delayed release (Adult Aspirin Regimen) 81 mg PO DAILY health maintenance 05/24/20 [History Last Taken 02/06/22] insulin glargine 100 unit/mL (3 mL) subcutaneous pen 10 units subcut BREAKFAST diabetes 12/18/20 [History Last Taken 02/06/22] tamsulosin 0.4 mg capsule 0.4 mg PO DAILY@1730 prostate 12/18/20 [History Last Taken 02/05/22] isosorbide mononitrate 120 mg tablet,extended release 24 hr 120 mg PO DAILY HEART #90 tabs 01/29/21 [Rx Last Taken 02/06/22] levetiracetam 500 mg tablet (Keppra) 500 mg PO BID #60 tabs 04/19/21 [Rx Last Taken 02/06/22] budesonide-formoterol HFA 160 mcg-4.5 mcg/actuation aerosol inhaler 2 puff inhalation BID copd #10.2 grams 05/30/21 [Rx Last Taken 02/06/22] promethazine 25 mg tablet 25 mg PO Q6H PRN nausea #20 tabs 12/17/21 [Rx Last Taken 02/06/22] atorvastatin 80 mg tablet 80 mg PO QHS Cholesterol #90 tabs 01/17/22 [Rx Last Taken 02/05/22] clopidogrel 75 mg tablet 75 mg PO DAILY antiplatelet #90 tabs 01/17/22 [Rx Last Taken 02/06/22] ezetimibe 10 mg tablet 10 mg PO DAILY #90 tabs 01/17/22 [Rx Last Taken 02/06/22] lisinopril 10 mg tablet 10 mg PO DAILY BP #90 tabs 01/17/22 [Rx Last Taken 02/06/22] metoprolol succinate 100 mg tablet,extended release 24 hr 100 mg PO DAILY heart #90 tabs 01/17/22 [Rx Last Taken 02/06/22] aripiprazole 2 mg tablet 2 mg PO QHS MOOD 02/06/22 [History Last Taken 02/05/22] metformin 1,000 mg tablet 1,000 mg PO BID DM 02/06/22 [History Last Taken 02/06/22] pantoprazole 40 mg tablet,delayed release (Protonix) 40 mg PO BID #60 tabs 02/09/22 [Rx Last Taken Unknown] sucralfate 1 gram tablet (Carafate) 1 g PO Q6H #120 tabs 02/09/22 [Rx Last Taken Unknown] furosemide 40 mg tablet 20 mg PO DAILY FLUID 03/05/22 [History Last Taken Unknown] tramadol 50 mg tablet 50 mg PO Q6H PRN Pain 03/05/22 [History Last Taken Unknown] magnesium chloride 64 mg (magnesium chloride) tablet,delayed release 64 mg PO DAILY #30 tabs 03/08/22 [Rx Last Taken Unknown] spironolactone 25 mg tablet 25 mg PO DAILY 30 days #30 tabs 03/08/22 [Rx Last Taken Unknown] doxycycline monohydrate 100 mg capsule 100 mg PO BID #14 CAPSULES 04/01/22 [Rx Last Taken Unknown] prednisone 10 mg tablet 10 mg PO UD #33 tabs 04/01/22 [Rx Last Taken Unknown] sotalol 120 mg tablet 120 mg PO BID heart #180 tabs 06/03/22 [Rx Last Taken Unknown] duloxetine 30 mg capsule,delayed release 30 mg PO QAM #30 caps 06/04/22 [Rx Last Taken Unknown] duloxetine 60 mg capsule,delayed release 60 mg PO QPM #30 caps 06/04/22 [Rx Last Taken Unknown] lidocaine 5 % topical patch (Lidoderm) 1 patch topical DAILY #15 ea 07/30/22 [Rx Last Taken Unknown] Allergy/AdvReac Type Severity Reaction Status Date / Time Seasonal Allergies: Uncoded Allergy Shortness Verified 06/30/22 22:21 of breath Family History Father CAD (coronary artery disease) COPD (chronic obstructive pulmonary disease) CHF (congestive heart failure) CVA (cerebral vascular accident) Mother COPD (chronic obstructive pulmonary disease) Other Neuropathy Surgical History H/O coronary artery bypass surgery (10/2005) History of coronary artery stent placement (01/05/14) History of left heart catheterization (12/20/20) History of loop recorder (2016) History of open reduction and internal fixation (ORIF) procedure Social History household members: significant other and other housing: house number of children: 2 Smoking Status: Current every day smoker tobacco type: e-cigarettes Electronic Cigarette Use: with nicotine second hand exposure: No alcohol intake: current alcohol intake frequency: 3 or more drinks per day Alcohol type: wine substance use type: marijuana caffeine: Yes Type: coffee what type of physical activity do you participate in: walking frequency: daily duration: < 15 minutes/day seatbelt use: always do you feel safe at home: Yes ROS ROS ED Constitutional Constitutional ED: Denies chills or fever(s) Eyes Eyes: Denies change in vision ENT ENT ED: Denies rhinorrhea or sore throat Cardiovascular Cardiovascular: Denies chest pain, palpitations or racing heartbeat Respiratory/Chest Respiratory/Chest: Denies cough or dyspnea Gastrointestinal Gastrointestinal: Reports abdominal pain, nausea and other Details: See history of present illness. Patient points to the right flank area but denies anterior abdominal pain. ; Denies constipation, diarrhea, melena or vomiting Genitourinary Genitourinary ED: Reports dysuria and other Details: See history of present illness Musculoskeletal Musculoskeletal: Denies arthralgias, myalgias or neck pain Integumentary Denies rash Neurologic Neurologic: Denies paresthesias or weakness Hematologic/Lymphatic Hematologic/Lymphatic: Reports easy bleeding and easy bruising Allergic/Immunologic Allergic/Immunologic ED: Denies urticaria EXAM Physical Exam Const Vital Signs: 07/30/22 15:59 Temperature 96.7 F L Temperature Source Temporal Pulse Rate 83 Respiratory Rate 16 Blood Pressure 109/63 Blood Pressure Mean 78 Pulse Ox 95 Oxygen Delivery Method Room Air Positive well nourished and well developed General Appearance ED: well developed; Negative for cyanotic, diaphoretic, NAD or pallor HEENT Reports moist mucous membranes Eyes General Eye ED: Negative for scleral icterus Neck no lymphadenopathy Chest Wall inspection of chest normal Resp normal respiratory effort and clear to auscultation bilaterally Cardio regular rate GI normal to inspection, nondistended, normoactive bowel sounds and non-tender GI Narrative: I get no anterior abdominal pain. I feel no mass or hear no bruit. But he does have some tenderness with right flank and right CVA area palpation. But no skin changes in that area. Multiple tattoos but no sign of infections. Back/Spine General Back: CVA tenderness Extremity normal to inspection Extremity Narrative: No edema cords or tenderness. Prior signs of vein harvesting for his bypass surgery. Neuro oriented x3 Sensorium / Orientation: alert Psych mental status grossly normal Skin no rashes or lesions noted and no wounds General Skin Exam: Negative for jaundice or pallor MDM MDM MDM Narrative Medical decision making narrative: Patient CBC looks good. No sign of anemia. Electrolytes are unremarkable. Glucose is minimally up at 137. LFTs are overall normal. Lipase is normal. Urine is overall unremarkable. I do not think the urine justifies treatment. We will send a culture. CT scan shows resolution of pneumonitis and constipation. There is some sign of DJD. But there is no indication the source for his pain. Patient does get routine pain meds through his primary physician. I explained I cannot write for narcotics for him. I will give him something for pain here. When I went to recheck him he was resting and sleeping. I had to shake him gently to wake him up. I will also write for some lighted Derm patches to see if that will help. He does have a moderate amount of motion effect from this and this may be musculoskeletal. Lab Data Attestation: I reviewed the patient's lab results. Labs: Laboratory Results - last 24 hr 07/30/22 07/30/22 07/30/22 15:42 15:42 16:36 WBC 9.0 RBC 3.88 L Hgb 13.2 Hct 41.2 MCV 106.2 H MCH 34.0 H MCHC 32.0 RDW Std Deviation 58.3 H RDW Coeff of Arleen 14.8 H Plt Count 277 MPV 10.1 Immature Gran % (Auto) 0.600 Neut % (Auto) 66.7 Lymph % (Auto) 16.8 L [place] % (Auto) 11.8 H Eos % (Auto) 3.3 Baso % (Auto) 0.8 Absolute Neuts (auto) 6.0 Absolute Lymphs (auto) 1.52 Nucleated RBC % 0 Sodium 137 Potassium 4.0 Chloride 102 Carbon Dioxide 22.0 Anion Gap 13 BUN 12 Creatinine 1.16 Estim Creat Clear Calc 71.11 Est GFR (MDRD) Af Amer 84 Est GFR (MDRD) Non-Af 69 BUN/Creatinine Ratio 10.3 Glucose 137 H Calcium 9.4 Total Bilirubin 0.20 AST 13 L ALT 18 Alkaline Phosphatase 60 Total Protein 7.1 Albumin 3.5 Globulin 3.6 Albumin/Globulin Ratio 1.0 Lipase 135 Urine Color Yellow Urine Clarity Clear Urine pH 6.0 Ur Specific [place] 1.010 Urine Protein Negative Urine Glucose (UA) Normal Urine Ketones Negative Urine Occult Blood Negative Urine Nitrite Negative Urine Bilirubin Negative Urine Urobilinogen Normal Ur Leukocyte Esterase 100 H Urine RBC 0 SEEN Urine WBC 0 SEEN Ur Squamous Epith Cells 0-5 SEEN Urine Bacteria RARE Urine Mucus 0 SEEN Radiography Diagnostic Testing: Clinical Impression(s) from Imaging Studies Abdomen/Pelvis CT 07/30/22 16:05 IMPRESSION: Interval resolution of bilateral pneumonitis bilateral pleural effusions right greater than left. Right adrenal adenoma stable. Interval resolution of fecal stasis. Simple cyst lower pole left kidney. Facet arthropathy and degenerative disc disease L5-S1. Electronically Signed: Ryland Bennett MD, KANNAN at 17:01 EDT Reading Location ID and State: [facility] / [place] Tel , Service support , Discharge Plan Triage Chief Complaint: Flank Pain ED Provider: Kenton Fonseca Dx/Rx/DC Orders Clinical Impression: Right flank pain Instructions: ED Flank Pain, Uncertain Cause Prescriptions: New lidocaine [Lidoderm] 5 % adhesive patch,medicated 1 patch topical DAILY Qty: 15 0RF Rx Instructions: leave on most painful area for up to 12 hrs No Action aspirin [Adult Aspirin Regimen] 81 mg tablet,delayed release (DR/EC) 81 mg PO DAILY Hold Instructions: Resume on 02/14/22. isosorbide mononitrate 120 mg tablet extended release 24 hr 120 mg PO DAILY Qty: 90 3RF budesonide-formoterol 160-4.5 mcg/actuation HFA aerosol inhaler 2 puff INHALATION BID Qty: 10.2 5RF gabapentin 600 MG tablet 1,200 mg PO TIDCM Label Comments: 2 tabs in the evening albuterol sulfate 2.5 MG/3 ML solution for nebulization 1 dose IH Q4H PRN PRN (Reason: Sob &/Or Wheezing) nitroglycerin 0.4 MG tablet, sublingual 0.4 mg sublingual PRN PRN (Reason: chest pain) albuterol sulfate 1 PUFF inhaler 2 puff INHALATION Q6H PRN PRN (Reason: Sob &/Or Wheezing) tamsulosin 0.4 MG capsule 0.4 mg PO DAILY@1730 insulin glargine 100 UNITS/ML insulin pen 10 units SC BREAKFAST levetiracetam [Keppra] 500 mg tablet 500 mg PO BID Qty: 60 0RF promethazine 25 mg tablet 25 mg PO Q6H PRN (Reason: nausea) Qty: 20 0RF metformin 1,000 mg tablet 1,000 mg PO BID Label Comments: take 1 tablet by mouth twice a day aripiprazole 2 mg tablet 2 mg PO QHS Label Comments: take 1 tablet by mouth nightly sucralfate [Carafate] 1 gram tablet 1 g PO Q6H Qty: 120 0RF pantoprazole [Protonix] 40 mg tablet,delayed release (DR/EC) 40 mg PO BID Qty: 60 0RF furosemide 40 mg tablet 20 mg PO DAILY tramadol 50 mg Tablet 50 mg PO Q6H PRN (Reason: Pain) spironolactone 25 mg Tablet 25 mg PO DAILY 30 Days Qty: 30 0RF magnesium chloride 64 mg tablet,delayed release (DR/EC) 64 mg PO DAILY Qty: 30 0RF prednisone 10 MG tablet 10 mg PO UD Qty: 33 0RF Rx Instructions: Take 4 tablets daily for 3 days, then 3 daily for 3 days, then 2 daily for 3 days, then 1 a day for 3 days then 1 QOD for 3 doses. doxycycline monohydrate 100 MG capsule 100 mg PO BID Qty: 14 0RF atorvastatin 80 mg tablet 80 mg PO QHS Qty: 90 3RF clopidogrel 75 mg tablet 75 mg PO DAILY Qty: 90 3RF Hold Instructions: Resume on 02/14/22. ezetimibe 10 mg tablet 10 mg PO DAILY Qty: 90 3RF lisinopril 10 mg tablet 10 mg PO DAILY Qty: 90 3RF metoprolol succinate 100 mg tablet extended release 24 hr 100 mg PO DAILY Qty: 90 3RF sotalol 120 mg tablet 120 mg PO BID Qty: 180 3RF duloxetine 60 mg capsule,delayed release(DR/EC) 60 mg PO QPM Qty: 30 3RF duloxetine 30 mg capsule,delayed release(DR/EC) 30 mg PO QAM Qty: 30 3RF Primary Care Provider: Blaze Louis Referrals: Blaze Louis MD [Primary Care Provider] - 3-5 Days Disposition Disposition: Home, Self Care
[2022-07-30] MEDS: Ondansetron 4 MG/2 ML Vial IV (16:13)
[2022-07-30 16:23] LABS: Absolute Lymphocyte Count 1.52 X10^3/uL (0.83-4.51); Basophil# 0.07 X10^3/uL; Basophil% 0.8 % (0-1); Eosinophils% 3.3 % (0-5); Hematocrit 41.2 % (40-54); Hemoglobin 13.2 g/dL (13.0-16.5); Lymphocyte # 1.52 X10^3/ul (0.83-4.51); Lymphocyte % 16.8 % (19-41); Mean Corpuscular Volume 106.2 fL (80-94); Mean Platelet Vol. 10.1 fl (6.2-12.0); Monocyte# 1.07 X10^3/uL; Monocyte% 11.8 % (0-10); NRBC Flagged by Analyzer 0 % (0-5); Neutrophil # 6.02 X10^3/uL (2.7-7.7); Neutrophil % 66.7 % (47-70); Platelet Count 277 K/mm3 (150-450); RBC Distribution Width CV 14.8 % (11.6-14.6); RBC Distribution Width SD 58.3 fl (35.1-43.9); Red Blood Count 3.88 M/mm3 (4.6-6.2)
[2022-07-30 16:41] LABS: AST(SGOT) 13 U/L (15-37); Alanine Aminotransfer ALT/SGPT 18 U/L (16-61); Albumin, Serum 3.5 g/dL (3.2-5.0); Alkaline Phosphatase 60 U/L (45-117); Anion Gap 13 (5-15); BUN 12 mg/dL (7-18); BUN/Creat Ratio 10.3 RATIO (10-20); Calcium,Total 9.4 mg/dL (8.5-10.1); Chloride 102 mmol/L (98-107); Creatinine, Serum 1.16 mg/dL (0.70-1.30); EST Glomerular Filtration Rate 69 mL/min (>60); Est Glom Filt Rate - Afr Amer 84 mL/min (>60); Estimated Creatinine Clearance 71.11 ml/min; Globulin 3.6 g/dL (2.2-4.2); Glucose 137 mg/dL (74-106); Lipase 135 U/L (73-393); Protein, Total 7.1 g/dL (6.4-8.2); Sodium Level 137 mmol/L (136-145)
[2022-07-30 16:42] LABS: Mucous, Urine 0 SEEN /hpf (<or=2+); Red Blood Cells-Urine 0 SEEN /hpf (0-5); White Blood Cells 0 SEEN /hpf (0-5)
[2022-07-30 16:52] LABS: Color, Urine Yellow (Yellow); Glucose, Dipstick Normal (Normal); Ketone-Dipstick Negative (Negative); Leukocyte Esterase-Dipstick 100 /ul (Negative); Nitrite-Dipstick Negative (Negative); Occult Blood-Urine Negative /ul (Negative); Protein-Dipstick Negative (Negative); Urine Bilirubin Dipstick Negative (Negative); Urine Clarity Clear (Clear); Urine Urobilinogen Normal (Normal)
[2022-07-30 17:03] LABS: Bacteria RARE /hpf (None Seen); Squamous Epithelial Cells - UA 0-5 SEEN /hpf (0-5)
[2022-07-30] MEDS: Morphine 4 MG/ML Syringe IV (17:40)
[2022-07-30 17:41] VITALS: BP 101/58; PULSE 74
== END 2022-07-30 18:02 | disposition home or self-care (01) ==
PROVIDERS: Emergency Provider Emergency Medicine; PCP Family Medicine; Visit Provider Emergency Medicine
DX: R10.9 Unspecified abdominal pain (principal); I25.10 Atherosclerotic heart disease of native coronary artery without angina pectoris; F17.290 Nicotine dependence, other tobacco product, uncomplicated; G47.33 Obstructive sleep apnea (adult) (pediatric); Z95.1 Presence of aortocoronary bypass graft; Z95.5 Presence of coronary angioplasty implant and graft
CPT/HCPCS: 74176; 80053; 81001; 83690; 85025; 87086; 93005; 96374; 96375; 99285; J2405

== ENCOUNTER 2022-08-25 18:17 | Emergency (ER) | payer MEDICAID, SELFPAY ==
[2022-08-25] VITALS (10 sets, daily range): BP systolic 72–94; BP diastolic 44–65; PULSE 82–136; RESP 13–22; TEMP 36.7–37.1; O2SAT 93–99; BMI 26.9
--- NOTE | 2022-08-25 18:29 | EKG12_ITS ---
Test Reason : CP Blood Pressure : / mmHG Vent. Rate : 112 BPM Atrial Rate : 271 BPM P-R Int : 000 ms QRS Dur : 078 ms QT Int : 338 ms P-R-T Axes : 000 059 114 degrees QTc Int : 461 ms Atrial flutter with variable A-V block Nonspecific ST and T wave abnormality Abnormal ECG Confirmed by COLT LOMELI, TAMMY ([id number]), non linear editor CANDICE ZAZUETA ([id number]) on 08/26/2022 1:21:43 PM Referred By: JOURDAN Confirmed By:TAMMY GREGORY MD
--- NOTE | 2022-08-25 18:31 | EDS_ITS ---
HPI <Fausto Conner MD - Last Filed: 08/25/22 23:21> History of Present Illness Chief Complaint: Chest Pain Narrative Narrative: Patient with past medical history of atrial fibrillation, coronary artery disease, states he has 9 stents and has had 6 heart attacks presents with chest pain radiating to his back. States he is nauseated but not vomiting. He also states that he is sweaty. Is been constant over the last few days. His pain started at least 24 hours ago if not longer and has been relatively constant. He denies shortness of breath or other symptoms but is mainly concerned about his chest pain. [facility] <Fausto Conner MD - Last Filed: 08/25/22 23:21> [facility] Medical History (HFpEF) heart failure with preserved ejection fraction Acute hypotension Acute repetitive seizure Atherosclerosis of coronary artery bypass graft without angina pectoris Atherosclerosis of coronary artery of [place] heart without angina pectoris Atrial fibrillation Chest wall contusion Chronic anticoagulation Chronic obstructive pulmonary disease CPAP (continuous positive airway pressure) dependence Diabetes mellitus Essential hypertension Fall from slip, trip, or stumble Fracture of rib Hyperlipidemia Hypertension Leg swelling Lower extremity edema Major depression Metatarsal bone fracture Myocardial infarct Nicotine abuse KENNETH and COPD overlap syndrome PAD (peripheral artery disease) Paroxysmal atrial fibrillation Rectal bleeding Secondary pulmonary arterial hypertension Sleep apnea Smoking greater than 40 pack years Stroke/cerebrovascular accident Suicidal ideation Syncope Typical atrial flutter Home Medications gabapentin 600 mg tablet 1,200 mg PO TIDCM NERVE PAIN 12/07/15 [History Last Taken 02/06/22] albuterol sulfate 2.5 mg/3 mL (0.083 %) solution for nebulization 1 dose IH Q4H PRN PRN Sob &/Or Wheezing 11/09/19 [History Last Taken 02/06/22] albuterol sulfate 90 mcg/actuation aerosol inhaler 2 puff inhalation Q6H PRN PRN Sob &/Or Wheezing 11/09/19 [History Last Taken 02/05/22] nitroglycerin 0.4 mg sublingual tablet 0.4 mg sublingual PRN PRN chest pain 11/09/19 [History Last Taken 04/24/22] aspirin 81 mg tablet,delayed release (Adult Aspirin Regimen) 81 mg PO DAILY health maintenance 05/24/20 [History Last Taken 02/06/22] insulin glargine 100 unit/mL (3 mL) subcutaneous pen 10 units subcut BREAKFAST diabetes 12/18/20 [History Last Taken 02/06/22] tamsulosin 0.4 mg capsule 0.4 mg PO DAILY@1730 prostate 12/18/20 [History Last Taken 02/05/22] isosorbide mononitrate 120 mg tablet,extended release 24 hr 120 mg PO DAILY HEART #90 tabs 01/29/21 [Rx Last Taken 02/06/22] levetiracetam 500 mg tablet (Keppra) 500 mg PO BID #60 tabs 04/19/21 [Rx Last Taken 02/06/22] budesonide-formoterol HFA 160 mcg-4.5 mcg/actuation aerosol inhaler 2 puff inhalation BID copd #10.2 grams 05/30/21 [Rx Last Taken 02/06/22] promethazine 25 mg tablet 25 mg PO Q6H PRN nausea #20 tabs 12/17/21 [Rx Last Taken 02/06/22] atorvastatin 80 mg tablet 80 mg PO QHS Cholesterol #90 tabs 01/17/22 [Rx Last Taken 02/05/22] clopidogrel 75 mg tablet 75 mg PO DAILY antiplatelet #90 tabs 01/17/22 [Rx Last Taken 02/06/22] ezetimibe 10 mg tablet 10 mg PO DAILY #90 tabs 01/17/22 [Rx Last Taken 02/06/22] lisinopril 10 mg tablet 10 mg PO DAILY BP #90 tabs 01/17/22 [Rx Last Taken 02/06/22] metoprolol succinate 100 mg tablet,extended release 24 hr 100 mg PO DAILY heart #90 tabs 01/17/22 [Rx Last Taken 02/06/22] aripiprazole 2 mg tablet 2 mg PO QHS MOOD 02/06/22 [History Last Taken 02/05/22] metformin 1,000 mg tablet 1,000 mg PO BID DM 02/06/22 [History Last Taken 02/06/22] pantoprazole 40 mg tablet,delayed release (Protonix) 40 mg PO BID #60 tabs 02/09/22 [Rx Last Taken Unknown] sucralfate 1 gram tablet (Carafate) 1 g PO Q6H #120 tabs 02/09/22 [Rx Last Taken Unknown] furosemide 40 mg tablet 20 mg PO DAILY FLUID 03/05/22 [History Last Taken Unknown] tramadol 50 mg tablet 50 mg PO Q6H PRN Pain 03/05/22 [History Last Taken Unknown] magnesium chloride 64 mg (magnesium chloride) tablet,delayed release 64 mg PO DAILY #30 tabs 03/08/22 [Rx Last Taken Unknown] spironolactone 25 mg tablet 25 mg PO DAILY 30 days #30 tabs 03/08/22 [Rx Last Taken Unknown] doxycycline monohydrate 100 mg capsule 100 mg PO BID #14 CAPSULES 04/01/22 [Rx Last Taken Unknown] prednisone 10 mg tablet 10 mg PO UD #33 tabs 04/01/22 [Rx Last Taken Unknown] sotalol 120 mg tablet 120 mg PO BID heart #180 tabs 06/03/22 [Rx Last Taken Unknown] duloxetine 30 mg capsule,delayed release 30 mg PO QAM #30 caps 06/04/22 [Rx Last Taken Unknown] duloxetine 60 mg capsule,delayed release 60 mg PO QPM #30 caps 06/04/22 [Rx Last Taken Unknown] lidocaine 5 % topical patch (Lidoderm) 1 patch topical DAILY #15 ea 07/30/22 [Rx Last Taken Unknown] Allergy/AdvReac Type Severity Reaction Status Date / Time Seasonal Allergies: Uncoded Allergy Shortness Verified 08/25/22 18:24 of breath Family History Father CAD (coronary artery disease) COPD (chronic obstructive pulmonary disease) CHF (congestive heart failure) CVA (cerebral vascular accident) Mother COPD (chronic obstructive pulmonary disease) Other Neuropathy Surgical History H/O coronary artery bypass surgery (10/2005) History of coronary artery stent placement (01/05/14) History of left heart catheterization (12/20/20) History of loop recorder (2015) History of open reduction and internal fixation (ORIF) procedure Social History household members: significant other and other housing: house number of children: 2 Smoking Status: Current every day smoker tobacco type: e-cigarettes Electronic Cigarette Use: with nicotine second hand exposure: No alcohol intake: current alcohol intake frequency: 3 or more drinks per day Alcohol type: wine substance use type: marijuana caffeine: Yes Type: coffee what type of physical activity do you participate in: walking frequency: daily duration: < 15 minutes/day seatbelt use: always do you feel safe at home: Yes ROS <Fausot Conner MD - Last Filed: 08/25/22 23:21> ROS ED ROS Narrative Constitutional: No fever, no chills. Reported diaphoresis/sweating. HEENT: No sore throat. No neck pain. No loss of vision. No rhinorrhea. Cardiovascular: Positive chest pain with occasional radiation to back. No palpitations. No pedal edema. Respiratory: No cough, no shortness of breath. Abdominal: No abdominal pain. Positive nausea. No vomiting. Genitourinary: No dysuria. No hematuria. Musculoskeletal: No myalgias. No arthralgias. Neurologic: No headaches. No dizziness. No lightheadedness. Skin: No rash. No change in color. Psychiatric: No depression. No anxiety. EXAM <Fausto Conner MD - Last Filed: 08/25/22 23:21> Physical Exam Narrative Exam Narrative: Afebrile. Vital signs noted. HEENT: Normocephalic. Atraumatic. PERRL, EOMI. Neck soft and supple. No point tenderness or step off. Cardiovascular: Intermittent irregularly irregular tachycardia as high as 126.. No murmurs, rubs, or gallops appreciated. Respiratory: No tachypnea. Lungs clear to auscultation bilaterally. Gastrointestinal: Abdomen soft, nontender, with normoactive bowel sounds. No rebound or guarding. Neurological: Awake. Alert. Nonfocal, nonlateralizing. Skin: No rash. Normal color. No pallor. Musculoskeletal: No pedal edema. Full range of motion extremities. Left lower extremity in walking boot. Const Vital Signs: 08/25/22 18:18 08/25/22 18:21 08/25/22 18:21 Temperature 98.1 F 98.1 F Temperature Source Temporal Temporal Pulse Rate 136 H 102 H Respiratory Rate 22 H 19 H Respiratory Effort Normal Non-Labored Blood Pressure 82/61 L Blood Pressure Mean 68 Pulse Ox 97 98 Oxygen Delivery Method Nasal Cannula Nasal Cannula Oxygen Flow Rate (L/min) 3 3 08/25/22 18:40 08/25/22 19:48 08/25/22 19:48 Temperature 98.2 F Temperature Source Temporal Pulse Rate 87 87 Respiratory Rate 21 H 15 Respiratory Effort Blood Pressure 84/52 L Blood Pressure Mean 62 Pulse Ox 97 95 98 Oxygen Delivery Method Nasal Cannula Room Air Room Air Oxygen Flow Rate (L/min) 3 08/25/22 20:30 08/25/22 20:39 08/25/22 21:35 Temperature 98.1 F Temperature Source Temporal Pulse Rate 85 82 Respiratory Rate 13 16 Respiratory Effort Blood Pressure 72/44 L 92/44 L 94/54 L Blood Pressure Mean 53 60 67 Pulse Ox 98 99 97 Oxygen Delivery Method Room Air Room Air Room Air Oxygen Flow Rate (L/min) 08/25/22 21:37 08/25/22 22:55 08/25/22 22:59 Temperature 98.1 F 98.7 F Temperature Source Temporal Temporal Pulse Rate 82 85 Respiratory Rate 16 17 Respiratory Effort Blood Pressure 94/54 L 92/65 Blood Pressure Mean 67 74 Pulse Ox 97 96 93 Oxygen Delivery Method Room Air Room Air Nasal Cannula Oxygen Flow Rate (L/min) 3 <Dr. Luis A Gee, DO - Last Filed: 08/26/22 00:10> Physical Exam Const Vital Signs: 08/25/22 18:18 08/25/22 18:21 08/25/22 18:21 Temperature 98.1 F 98.1 F Temperature Source Temporal Temporal Pulse Rate 136 H 102 H Respiratory Rate 22 H 19 H Respiratory Effort Normal Non-Labored Blood Pressure 82/61 L Blood Pressure Mean 68 Pulse Ox 97 98 Oxygen Delivery Method Nasal Cannula Nasal Cannula Oxygen Flow Rate (L/min) 3 3 08/25/22 18:40 08/25/22 19:48 08/25/22 19:48 Temperature 98.2 F Temperature Source Temporal Pulse Rate 87 87 Respiratory Rate 21 H 15 Respiratory Effort Blood Pressure 84/52 L Blood Pressure Mean 62 Pulse Ox 97 95 98 Oxygen Delivery Method Nasal Cannula Room Air Room Air Oxygen Flow Rate (L/min) 3 08/25/22 20:30 08/25/22 20:39 08/25/22 21:35 Temperature 98.1 F Temperature Source Temporal Pulse Rate 85 82 Respiratory Rate 13 16 Respiratory Effort Blood Pressure 72/44 L 92/44 L 94/54 L Blood Pressure Mean 53 60 67 Pulse Ox 98 99 97 Oxygen Delivery Method Room Air Room Air Room Air Oxygen Flow Rate (L/min) 08/25/22 21:37 08/25/22 22:55 08/25/22 22:59 Temperature 98.1 F 98.7 F Temperature Source Temporal Temporal Pulse Rate 82 85 Respiratory Rate 16 17 Respiratory Effort Blood Pressure 94/54 L 92/65 Blood Pressure Mean 67 74 Pulse Ox 97 96 93 Oxygen Delivery Method Room Air Room Air Nasal Cannula Oxygen Flow Rate (L/min) 3 <Fausto Conner MD - Last Filed: 08/25/22 23:21> Heart Score History: Slightly/Non-Suspicious ECG: Normal Age: >45 - <65 years Risk Factors: >/= 3 Risk Factors or History of CAD Score: 3 <Dr. Luis A Gee DO - Last Filed: 08/26/22 00:10> Heart Score Score: 3 MDM <Fausto Conner MD - Last Filed: 08/25/22 23:21> MDM MDM Narrative Medical decision making narrative: Comprehensive work-up was pursued. His EKG interpreted by myself shows atrial flutter with variable AV block at [address] changes. No STEMI. It was reported that the patient took 5 nitroglycerin at home because of his chest pain. Hence, I think it is causing his persistent hypotension. However, he remains awake, alert, and mentating well. WBC count slightly elevated at 11.5 which I think is nonspecific, normal hemoglobin of 13.8, hematocrit 42.1. Platelet count 354. BMP shows a creatinine of 2.89 with a BUN of 29, sodium and potassium normal. This is up from his last creatinine which was normal a month ago. Glucose appropriately elevated at 153. Initial high-sensitivity troponin is 24, with a second also 24 for a delta troponin of 0. BNP normal at 29. Lactic acid is slightly elevated at 2.2. Chest x-ray interpreted by myself shows no acute process. Given that he has a normal EKG and a delta troponin of 0, I do feel that he could be discharged as long as his blood pressure starts to elevate appropriately. He did request something for pain in his shoulders. He takes tramadol so he was given 50 mg orally. Additionally, he states he takes 1200 mg of gabapentin for nerve pain so he was administered this. I will discuss patient with Dr. Swift. As long as the patient has an acceptable blood pressure, I feel he would be able to be discharged safely home with follow-up. I am not concerned for sepsis as he does not have a fever, he does not have an elevated white count above 12. Additionally, he has no longer tachycardic. He states he wears 3 L of oxygen at home and his oxygen saturations continue to be normal. I do feel a strong radial pulse in his left wrist. It is not palpable on the right because he states he cut it years ago I do feel that his acute kidney injury may be secondary to his furosemide. He states that he took 4 or 5 nitroglycerin yesterday but none today. His lactic acid has normalized after 2.5 L of intravenous fluids. I discussed the patient with Dr. Swift regarding his chest pain and his negative delta troponin. It was felt from a cardiology standpoint that he could be discharged to follow-up with cardiology as an outpatient. Lab Data Attestation: I reviewed the patient's lab results. Labs: Laboratory Results - last 24 hr 08/25/22 08/25/22 08/25/22 18:35 18:35 18:35 WBC 11.5 H RBC 4.07 L Hgb 13.8 Hct 42.1 MCV 103.4 H MCH 33.9 H MCHC 32.8 RDW Std Deviation 53.9 H RDW Coeff of Arleen 14.0 Plt Count 354 MPV 10.2 Immature Gran % (Auto) 0.500 Neut % (Auto) 73.7 H Lymph % (Auto) 14.6 L [place] % (Auto) 8.2 Eos % (Auto) 2.3 Baso % (Auto) 0.7 Absolute Neuts (auto) 8.5 H Absolute Lymphs (auto) 1.68 Nucleated RBC % 0 Sodium 136 Potassium 4.5 Chloride 100 Carbon Dioxide 22.0 Anion Gap 14 BUN 29 H Creatinine 2.89 H Estim Creat Clear Calc 29.47 Est GFR (MDRD) Af Amer 29 L Est GFR (MDRD) Non-Af 24 L BUN/Creatinine Ratio 10.0 Glucose 153 H Lactic Acid Calcium 10.3 H Troponin I High Sens 24 B-Natriuretic Peptide 29.0 08/25/22 08/25/22 08/25/22 20:33 20:33 22:46 WBC RBC Hgb Hct MCV MCH MCHC RDW Std Deviation RDW Coeff of Arleen Plt Count MPV Immature Gran % (Auto) Neut % (Auto) Lymph % (Auto) [place] % (Auto) Eos % (Auto) Baso % (Auto) Absolute Neuts (auto) Absolute Lymphs (auto) Nucleated RBC % Sodium Potassium Chloride Carbon Dioxide Anion Gap BUN Creatinine Estim Creat Clear Calc Est GFR (MDRD) Af Amer Est GFR (MDRD) Non-Af BUN/Creatinine Ratio Glucose Lactic Acid 2.2 H* 1.0 Calcium Troponin I High Sens 24 B-Natriuretic Peptide Radiography Diagnostic Testing: Clinical Impression(s) from Imaging Studies Chest X-Ray 08/25/22 18:44 IMPRESSION: No acute cardiopulmonary disease. No significant interval change. Electronically Signed: Leda Burr MD at 19:21 EDT Reading Location ID and State: , Service support , <Dr. Luis A Gee, DO - Last Filed: 08/26/22 00:10> [facility] Lab Data Labs: Laboratory Results - last 24 hr 08/25/22 08/25/22 08/25/22 18:35 18:35 18:35 WBC 11.5 H RBC 4.07 L Hgb 13.8 Hct 42.1 MCV 103.4 H MCH 33.9 H MCHC 32.8 RDW Std Deviation 53.9 H RDW Coeff of Arleen 14.0 Plt Count 354 MPV 10.2 Immature Gran % (Auto) 0.500 Neut % (Auto) 73.7 H Lymph % (Auto) 14.6 L [place] % (Auto) 8.2 Eos % (Auto) 2.3 Baso % (Auto) 0.7 Absolute Neuts (auto) 8.5 H Absolute Lymphs (auto) 1.68 Nucleated RBC % 0 Sodium 136 Potassium 4.5 Chloride 100 Carbon Dioxide 22.0 Anion Gap 14 BUN 29 H Creatinine 2.89 H Estim Creat Clear Calc 29.47 Est GFR (MDRD) Af Amer 29 L Est GFR (MDRD) Non-Af 24 L BUN/Creatinine Ratio 10.0 Glucose 153 H Lactic Acid Calcium 10.3 H Troponin I High Sens 24 B-Natriuretic Peptide 29.0 08/25/22 08/25/22 08/25/22 20:33 20:33 22:46 WBC RBC Hgb Hct MCV MCH MCHC RDW Std Deviation RDW Coeff of Arleen Plt Count MPV Immature Gran % (Auto) Neut % (Auto) Lymph % (Auto) [place] % (Auto) Eos % (Auto) Baso % (Auto) Absolute Neuts (auto) Absolute Lymphs (auto) Nucleated RBC % Sodium Potassium Chloride Carbon Dioxide Anion Gap BUN Creatinine Estim Creat Clear Calc Est GFR (MDRD) Af Amer Est GFR (MDRD) Non-Af BUN/Creatinine Ratio Glucose Lactic Acid 2.2 H* 1.0 Calcium Troponin I High Sens 24 B-Natriuretic Peptide Radiography Diagnostic Testing: Clinical Impression(s) from Imaging Studies Chest X-Ray 08/25/22 18:44 IMPRESSION: No acute cardiopulmonary disease. No significant interval change. Electronically Signed: Leda Burr MD at 19:21 EDT Reading Location ID and State: , Service support , Discharge Plan Triage Chief Complaint: Chest Pain ED Provider: Fausto Conner Dx/Rx/DC Orders Clinical Impression: Chest pain, Adverse effect of nitroglycerin, Lactic acid acidosis, Chronic pain, Acute kidney injury Instructions: Acute Kidney Failure Dc, ED Chest Pain, Noncardiac, ED Chronic Pain, ED Drug Reaction, Other Prescriptions: No Action aspirin [Adult Aspirin Regimen] 81 mg tablet,delayed release (DR/EC) 81 mg PO DAILY Hold Instructions: Resume on 02/14/22. isosorbide mononitrate 120 mg tablet extended release 24 hr 120 mg PO DAILY Qty: 90 3RF budesonide-formoterol 160-4.5 mcg/actuation HFA aerosol inhaler 2 puff INHALATION BID Qty: 10.2 5RF gabapentin 600 MG tablet 1,200 mg PO TIDCM Label Comments: 2 tabs in the evening albuterol sulfate 2.5 MG/3 ML solution for nebulization 1 dose IH Q4H PRN PRN (Reason: Sob &/Or Wheezing) nitroglycerin 0.4 MG tablet, sublingual 0.4 mg sublingual PRN PRN (Reason: chest pain) albuterol sulfate 1 PUFF inhaler 2 puff INHALATION Q6H PRN PRN (Reason: Sob &/Or Wheezing) tamsulosin 0.4 MG capsule 0.4 mg PO DAILY@1730 insulin glargine 100 UNITS/ML insulin pen 10 units SC BREAKFAST levetiracetam [Keppra] 500 mg tablet 500 mg PO BID Qty: 60 0RF promethazine 25 mg tablet 25 mg PO Q6H PRN (Reason: nausea) Qty: 20 0RF metformin 1,000 mg tablet 1,000 mg PO BID Label Comments: take 1 tablet by mouth twice a day aripiprazole 2 mg tablet 2 mg PO QHS Label Comments: take 1 tablet by mouth nightly sucralfate [Carafate] 1 gram tablet 1 g PO Q6H Qty: 120 0RF pantoprazole [Protonix] 40 mg tablet,delayed release (DR/EC) 40 mg PO BID Qty: 60 0RF furosemide 40 mg tablet 20 mg PO DAILY tramadol 50 mg Tablet 50 mg PO Q6H PRN (Reason: Pain) spironolactone 25 mg Tablet 25 mg PO DAILY 30 Days Qty: 30 0RF magnesium chloride 64 mg tablet,delayed release (DR/EC) 64 mg PO DAILY Qty: 30 0RF prednisone 10 MG tablet 10 mg PO UD Qty: 33 0RF Rx Instructions: Take 4 tablets daily for 3 days, then 3 daily for 3 days, then 2 daily for 3 days, then 1 a day for 3 days then 1 QOD for 3 doses. doxycycline monohydrate 100 MG capsule 100 mg PO BID Qty: 14 0RF lidocaine [Lidoderm] 5 % adhesive patch,medicated 1 patch topical DAILY Qty: 15 0RF Rx Instructions: leave on most painful area for up to 12 hrs atorvastatin 80 mg tablet 80 mg PO QHS Qty: 90 3RF clopidogrel 75 mg tablet 75 mg PO DAILY Qty: 90 3RF Hold Instructions: Resume on 02/14/22. ezetimibe 10 mg tablet 10 mg PO DAILY Qty: 90 3RF lisinopril 10 mg tablet 10 mg PO DAILY Qty: 90 3RF metoprolol succinate 100 mg tablet extended release 24 hr 100 mg PO DAILY Qty: 90 3RF sotalol 120 mg tablet 120 mg PO BID Qty: 180 3RF duloxetine 60 mg capsule,delayed release(DR/EC) 60 mg PO QPM Qty: 30 3RF duloxetine 30 mg capsule,delayed release(DR/EC) 30 mg PO QAM Qty: 30 3RF Primary Care Provider: Blaze Louis Referrals: Junito Swift MD [Med Staff - Active Staff] - 3-5 Days if not improving Blaze Louis MD [Primary Care Provider] - As soon as possible Disposition Disposition: Home, Self Care
[2022-08-25] MEDS: 0.9% Normal Saline 1,000 ML 1000 ML IV (18:38)
[2022-08-25] MEDS: Aspirin 81 MG TAB.CHEW 324 MG PO (18:38)
--- NOTE | 2022-08-25 18:44 | RAD_ITS ---
STUDY: X-RAY CHEST REASON FOR EXAM: Male, 56 years old. chest pain TECHNIQUE: Single AP portable view of the chest. COMPARISON: 06/27/2022 FINDINGS: There are superimposed monitor leads. The lungs are clear and expanded. There is no demonstrated pleural abnormality. Sternal cerclage wires and vascular clips are present from a prior sternotomy and coronary artery bypass graft procedure (CABG). Normal mediastinum and ranjit. Normal visualized pulmonary arteries. Normal visualized aortic arch and descending thoracic aorta. Normal visualized thoracic spine. Normal visualized ribs, clavicles, and shoulders. There is no demonstrated abnormality of the visualized soft tissue structures of the upper abdomen. RAD/Chest 1 View (Portable) IMPRESSION: No acute cardiopulmonary disease. No significant interval change. Electronically Signed: Leda Burr MD at 19:21 EDT Reading Location ID and State: , Service support ,
[2022-08-25 18:50] LABS: Absolute Lymphocyte Count 1.68 X10^3/uL (0.83-4.51); Absolute Neutrophil Count 8.5 X10^3/uL (2.0-7.7); Basophil# 0.08 X10^3/uL; Basophil% 0.7 % (0-1); Eosinophil# 0.27 X10^3/uL; Eosinophils% 2.3 % (0-5); Hematocrit 42.1 % (40-54); Hemoglobin 13.8 g/dL (13.0-16.5); Lymphocyte # 1.68 X10^3/ul (0.83-4.51); Lymphocyte % 14.6 % (19-41); Mean Corp Hgb Conc 32.8 g/dL (32-36); Mean Corpuscular Hgb 33.9 pg (27.0-32.0); Mean Corpuscular Volume 103.4 fL (80-94); Mean Platelet Vol. 10.2 fl (6.2-12.0); Monocyte# 0.94 X10^3/uL; Monocyte% 8.2 % (0-10); NRBC Flagged by Analyzer 0 % (0-5); Neutrophil # 8.48 X10^3/uL (2.7-7.7); Neutrophil % 73.7 % (47-70); Platelet Count 354 K/mm3 (150-450); RBC Distribution Width SD 53.9 fl (35.1-43.9); Red Blood Count 4.07 M/mm3 (4.6-6.2); White Blood Count 11.5 K/mm3 (4.4-11.0)
[2022-08-25 19:12] LABS: Anion Gap 14 (5-15); BUN 29 mg/dL (7-18); Calcium,Total 10.3 mg/dL (8.5-10.1); Chloride 100 mmol/L (98-107); Creatinine, Serum 2.89 mg/dL (0.70-1.30); EST Glomerular Filtration Rate 24 mL/min (>60); Est Glom Filt Rate - Afr Amer 29 mL/min (>60); Estimated Creatinine Clearance 29.47 ml/min; Glucose 153 mg/dL (74-106); Potassium 4.5 mmol/L (3.5-5.1); Sodium Level 136 mmol/L (136-145); Troponin-I HS (w/2H Reflex) 24 pg/mL (3.0-78.0)
[2022-08-25] MEDS: traMADol 50 MG Tablet PO (19:55)
[2022-08-25] MEDS: 0.9% Normal Saline 1,000 ML 999 ML IV ×2 (20:30→22:53)
[2022-08-25 20:46] LABS: Reflex Troponin-HS? (from REC) Y
[2022-08-25 21:06] LABS: Troponin-I HS 24 pg/mL (3.0-78.0)
[2022-08-25 21:09] LABS: Lactic Acid 2.2 mmol/L (0.4-1.9)
[2022-08-25] MEDS: Gabapentin 600 MG Tablet 1200 MG PO (22:54)
[2022-08-26 00:12] VITALS: BP 106/57; PULSE 74; RESP 16; TEMP 36.9; O2SAT 98; O2SAT 99
[2022-08-26 00:40] LABS: Reflex Lactate? Y
== END 2022-08-26 00:15 | disposition home or self-care (01) ==
PROVIDERS: Emergency Provider Emergency Medicine; PCP Family Medicine; Visit Provider Emergency Medicine
DX: R07.9 Chest pain, unspecified (principal); N17.9 Acute kidney failure, unspecified; T46.3X5A Adverse effect of coronary vasodilators, initial encounter; E87.2 Acidosis; G89.29 Other chronic pain; I25.10 Atherosclerotic heart disease of native coronary artery without angina pectoris; G47.33 Obstructive sleep apnea (adult) (pediatric); I25.2 Old myocardial infarction; F17.290 Nicotine dependence, other tobacco product, uncomplicated; F12.90 Cannabis use, unspecified, uncomplicated; Z95.1 Presence of aortocoronary bypass graft; Z95.5 Presence of coronary angioplasty implant and graft
CPT/HCPCS: 71045; 80048; 83605; 83880; 84484; 85025; 93005; 96360; 99285; J7030; A4216

== ENCOUNTER → 2022-10-15 | Outpatient (CLI) | payer MEDICAID, SELFPAY ==
[2022-10-15 18:20] LABS: Vitamin B12 439 pg/mL (211-911); Vitamin D,25 Hydroxy 23.6 ng/mL
[2022-10-15 18:28] LABS: Hemoglobin A1c 4.7 % (3.8-5.6)
[2022-10-15 18:51] LABS: ALB/GLOB Ratio 0.9 RATIO (0.9-2.4); AST(SGOT) 17 U/L (15-37); Alanine Aminotransfer ALT/SGPT 30 U/L (16-61); Albumin, Serum 3.5 g/dL (3.2-5.0); Alkaline Phosphatase 88 U/L (45-117); Anion Gap 7 (5-15); BUN 11 mg/dL (7-18); BUN/Creat Ratio 9.6 RATIO (10-20); Calcium,Total 9.3 mg/dL (8.5-10.1); Chloride 104 mmol/L (98-107); Cholesterol 101 mg/dL (200); Creatinine, Serum 1.15 mg/dL (0.70-1.30); EST Glomerular Filtration Rate 70 mL/min (>60); Est Glom Filt Rate - Afr Amer 84 mL/min (>60); Ferritin 32 ng/mL (26-388); Globulin 3.7 g/dL (2.2-4.2); Glucose 109 mg/dL (74-106); High Density Lipoprotein 34 mg/dL; Iron 196 ug/dL (65-175); Iron Binding Capacity,Total 361 ug/dL (250-450); Magnesium 1.8 mg/dL (1.6-2.6); Potassium 3.8 mmol/L (3.5-5.1); Protein, Total 7.2 g/dL (6.4-8.2); Sodium Level 137 mmol/L (136-145); Triglycerides 120 mg/dL; Very Low Density Lipoprotein 24 mg/dL (5-40)
[2022-10-20 16:29] LABS: VITAMIN B6 56.7 ug/L (3.4-65.2); Vitamin B1, Thiamine 146.6 nmol/L (66.5-200.0)
== END | disposition home or self-care (01) ==
LOC: MFPLAB 16:52
PROVIDERS: PCP Family Medicine; Referring Provider Family Medicine; Visit Provider Family Medicine
DX: E55.9 Vitamin D deficiency, unspecified (principal); I48.91 Unspecified atrial fibrillation; E11.9 Type 2 diabetes mellitus without complications
CPT/HCPCS: 36415; 80053; 80061; 82306; 82607; 82728; 83036; 83540; 83550; 83735; 84207; 84425